=== PATIENT | male | born 1970 | race Two or more races ===

== ENCOUNTER 2024-04-17 09:38 | Emergency (ER) | payer MEDICAID, OTHER ==
[~2024-04-17] VITALS: Ht 188 cm; Wt 91.0 kg
[2024-04-17 10:57] VITALS: BP 157/87; PULSE 111; RESP 18; TEMP 97.9; O2SAT 98
--- NOTE | 2024-04-17 12:33 | ED.PDOC ---
History of Present Illness HPI Comments Patient is here for Dialysis site dressing change. Has Dialyisis on Thursday. No other complaints Chief Complaint: Wound Check Time Seen by MD: 10:45 Primary Care Provider: ? Reviewed Notes: Nurses Notes, Medications, Allergies Allergies: Coded Allergies: Erythromycin (Verified Allergy, Unknown, 04/17/24) Penicillins (Verified Allergy, Unknown, 04/17/24) Information Source: Patient Mode of Arrival: Wheelchair Past Medical History PAST MEDICAL HISTORY: DM, ESRD, HTN Surgical History (Other): royce cath Renal biopsy Social History Alcohol: Denies ETOH Use Drugs: Marijuana Lives In: Home All Other Systems: Reviewed and Negative Physical Exam General Appearance: No Apparent Distress HEENT: Normal ENT Inspection, PERRL/EOMI, TMs Normal Neck: Non-Tender, Normal Inspection Respiratory: Lungs Clear, No Respiratory Distress, Normal Breath Sounds, Other (Patient with Royce cath left upper chest wall, dressing not clean.) Cardiovascular: Regular Rate/Rhythm Breast Exam: Deferred Gastrointestinal: Non Tender, Normal Bowel Sounds, RUQ Genitalia: Deferred Pelvic: Deferred Rectal: Deferred Extremities: Decreased range of motion, Normal range of motion Neurologic: Alert, Normal Affect, Normal Mood Cerebellar Function: NOT DONE Reflexes: NOT DONE Skin: Dry, Warm Lymphatic: NOT DONE Was a procedure done? Was a procedure done?: No Differential Dx Considerations may include: bacteremia X-Ray, Labs, Meds, VS Vital Signs Date Time Temp Pulse Resp B/P (MAP) Pulse Ox O2 Delivery O2 Flow Rate FiO2 04/17/24 10:57 111 18 98 Room Air 04/17/24 10:57 97.9 111 18 157/87 (110) 98 97.9 04/17/24 09:45 97.9 111 18 157/87 (110) 98 X-Ray, Labs, Meds, VS Comment Patient seen and examied by me. Here only for central line dressing change, no other complaints. Has Dialysis on Thursday. Dressing was achnged by RN. Patient left after without paperwork. Time of 1ST Reevaluation: 11:30 Reevaluation 1ST: Improved Patient Education/Counseling: Other (patient left) Family Education/Counseling: No Family Present Departure 1 Departure Time of Disposition: 12:24 Impression: Primary Impression: Encounter for central line care Disposition: 01 HOME / SELF CARE / HOMELESS Condition: Good Critical Care Note Critical Care Time?: No Stability Stability form required: JANETH Stern [facility] Apr 17, 2024 12:33
== END 2024-04-17 12:34 | disposition home or self-care (01) ==
LOC: ER 09:38 → EDBD 09:38 → ER 12:24
DX: Z45.2 Encounter for adjustment and management of vascular access device (principal); E11.22 Type 2 diabetes mellitus with diabetic chronic kidney disease; I12.0 Hypertensive chronic kidney disease with stage 5 chronic kidney disease or end stage renal disease; N18.6 End stage renal disease; Z88.0 Allergy status to penicillin; Z88.1 Allergy status to other antibiotic agents; Z99.2 Dependence on renal dialysis

== ENCOUNTER 2024-05-11 19:55 | Emergency (ER) | payer MEDICAID ==
[~2024-05-11] VITALS: Ht 165.1 cm; Wt 65.0 kg
[2024-05-11 19:55] VITALS: BP 132/80; PULSE 90; RESP 14; O2SAT 99
== END 2024-05-11 23:20 | disposition left against medical advice (07) ==
LOC: ER 19:55 → EDBD 19:55 → ER 23:20
DX: H92.03 Otalgia, bilateral (principal); Z53.21 Procedure and treatment not carried out due to patient leaving prior to being seen by health care provider

== ENCOUNTER 2024-06-07 09:44 | Inpatient (IN) | payer MEDICAID ==
[~2024-06-07] VITALS: Ht 177.8 cm; Wt 77.0 kg
--- NOTE | 2024-06-07 10:07 | ED.PDOC ---
HPI Comments 53 year old male SHALONDA presents to the ED with chief complaint of HTN. EMS reports patient was undergoing dialysis yesterday when he was stopped early due to his blood pressure being too high. EMS relays that the patient called 911 today due to feeling SOB with associated chest pain, headache, and dizziness. Patient states he did not take his Amlodipine and Metoprolol this morning. EMS notes patient's BP was 213 systolically. Patient receives dialysis M/W/F. Patient denies any N/V, weakness, numbness, or abdominal pain. Chief Complaint: High Blood Pressure Time Seen by MD: 10:02 Primary Care Provider: ? Reviewed Notes: Nurses Notes, Community Integration Specialist Notes, Medications, Allergies Allergies: Coded Allergies: Erythromycin (Verified Allergy, Unknown, 04/17/24) Penicillins (Verified Allergy, Unknown, 04/17/24) Information Source: Patient, Emergency Med Personnel Mode of Arrival: EMS Severity: Moderate Timing: Days Duration: Since onset Prehospital treatment: None Location: Chest (L) Radiation: No Radiation Quality: Aching Onset: At Rest Cardiac Risk Factors: HTN, Diabetes PE Risk Factors: None History of: None Associated Signs and Symptoms: SOB Past Medical History PAST MEDICAL HISTORY: DM, ESRD, HTN Surgical History: Denies all surgeries Family History Family History: Reviewed,noncontributory to illness Social History Smoker: Non-Smoker Alcohol: Denies ETOH Use Drugs: Marijuana Lives In: Home Constitutional: denies: chills, diaphoresis, fatigue, fever, malaise, sweats, weakness, others EENTM: denies: blurred vision, double vision, ear bleeding, ear discharge, ear drainage, ear pain, ear ringing, eye pain, eye redness, hearing loss, mouth pain, mouth swelling, nasal discharge, nose bleeding, nose congestion, nose pain, photophobia, tearing, throat pain, throat swelling, voice changes, others Respiratory: reports: shortness of breath; denies: cough, hemoptysis, orthopnea, SOB at rest, SOB with excertion, stridor, wheezing, others Cardiovascular: reports: chest pain; denies: dizzy spells, diaphoresis, Dyspnea on exertion, edema, irregular heart beat, left arm pain, lightheadedness, palpitations, PND, syncope, others Gastrointestinal: denies: abdomen distended, abdominal pain, blood streaked bowels, constipated, diarrhea, dysphagia, difficulty swallowing, hematemesis, melena, nausea, poor appetite, poor fluid intake, rectal bleeding, rectal pain, vomiting, others Genitourinary: denies: burning, dysuria, flank pain, frequency, hematuria, incontinence, penile discharge, penile sore, pain, testicle pain, testicle swelling, urgency, others Neurological: reports: dizziness, headache; denies: fainting, left sided numbness, left sided weakness, numbness, paresthesia, pre-existing deficit, right sided numbness, right sided weakness, seizure, speech problems, tingling, tremors, weakness, others Musculoskeletal: denies: back pain, gout, joint pain, joint swelling, muscle pain, muscle stiffness, neck pain, others Integumetry: denies: bruises, change in color, change in hair/nails, dryness, laceration, lesions, lumps, rash, wounds, others Allergic/Immunocompromised: denies: Difficulty Healing, Frequent Infections, Hives, Itching, others Hematologic/Lymphatic: denies: anemia, blood clots, easy bleeding, easy b ruising, swollen glands, others Endocrine: denies: excessive hunger, excessive sweating, excessive thirst, excessive urination, flushing, intolerance to cold, intolerance to heat, unexplained weight gain, unexplained weight loss, others Psychiatric: denies: anxiety, bipolar disorder, depression, hopeless, panic disorder, schizophrenia, sleepless, suicidal, others All Other Systems: Reviewed and Negative Physical Exam General Appearance: Moderate Distress, Normal HEENT: Normal ENT Inspection, PERRL/EOMI Neck: Full Range of Motion, Non-Tender, Normal, Normal Inspection Respiratory: Chest Non-Tender, Lungs Clear, No Accessory Muscle Use, No Respiratory Distress, Normal Breath Sounds Cardiovascular: No Edema, No JVD, No Murmur, No Gallop, Normal Peripheral Pulses, Regular Rate/Rhythm Breast Exam: Deferred Gastrointestinal: No Organomegaly, Non Tender, No Pulsatile Mass, Normal Bowel Sounds, Soft Genitalia: Deferred Pelvic: Deferred Rectal: Deferred Extremities: No calf tenderness, Normal capillary refill, Normal inspection, Normal range of motion, Non-tender, No pedal edema Musculoskeletal : Apperance: Normal Neurologic: Alert, hammerer helper II-XII nml as Tested, No Motor Deficits, Normal Affect, Normal Mood, No Sensory Deficits Cerebellar Function: NOT DONE Reflexes: NOT DONE Skin: Dry, Normal Color, Warm Peripheral Pulses: 3+ Radial (R), 3+ Radial (L) Lymphatic: No Adenopathy Was a procedure done? Was a procedure done?: No CP Differential Dx Differential Diagnosis: A-fib, A-Flutter, Angina, Anxiety / Panic Attack, Atrial Dysrhythmia, Electrolyte Disorder X-Ray, Labs, Meds, VS Vital Signs Date Time Temp Pulse Resp B/P (MAP) Pulse Ox O2 Delivery O2 Flow Rate FiO2 06/07/24 12:08 98.9 103 17 172/94 (120) 95 98.9 06/07/24 12:08 103 17 95 Room Air* 0 21 06/07/24 10:23 166/112 06/07/24 10:01 98.9 106 20 213/139 (163) 97 98.9 06/07/24 09:53 100 Lab Test 06/07/24 12:12 06/07/24 10:22 Range/Units Influenza Type A Antigen Negative Negative Influenza Type B Antigen Negative Negative White Blood Count 8.0 4.4-10.8 10^3/uL Red Blood Count 3.74 L 4.5-5.90 10^6/uL Hemoglobin 11.8 L 13.5-17.5 g/dL Hematocrit 33.9 L 41.0-53.0 % Mean Corpuscular Volume 90.7 80.0-100.0 fL Mean Corpuscular Hemoglobin 31.5 28.0-32.0 pg Mean Corpuscular Hemoglobin Concent 34.7 32.0-36.0 g/dL Red Cell Distribution Width 15.0 H 11.8-14.3 % Platelet Count 314 140-450 10^3/uL Mean Platelet Volume 6.8 L 6.9-10.8 fL Neutrophils (%) (Auto) 67.3 37.0-80.0 % Lymphocytes (%) (Auto) 21.6 10.0-50.0 % Monocytes (%) (Auto) 9.1 0.0-12.0 % Eosinophils (%) (Auto) 1.2 0.0-7.0 % Basophils (%) (Auto) 0.8 0.0-2.0 % Neutrophils # (Auto) 5.4 1.6-8.6 10 ^3/uL Lymphocytes # (Auto) 1.7 0.4-5.4 10 ^3/uL Monocytes # (Auto) 0.7 0-1.3 10 ^3/uL Eosinophils # (Auto) 0.1 0-0.8 10 ^3/uL Basophils # (Auto) 0.1 0-0.2 10 ^3/uL Nucleated Red Blood Cells 0.1 % Sodium Level 141 136-145 mmol/L Potassium Level 3.8 3.5-5.1 mmol/L Chloride Level 108 H 98-107 mmol/L Carbon Dioxide Level 23 20-31 mmol/L Anion Gap 10 5-15 Blood Urea Nitrogen 27 H 9-23 mg/dL Creatinine 3.31 H 0.700-1.30 mg/dL Glomerular Filtration Rate Calc 21 >90 mL/min BUN/Creatinine Ratio 8.2 L 10.0-20.0 Serum Glucose 267 H 74-106 mg/dL Calcium Level 9.5 8.7-10.4 mg/dL Troponin I High Sensitivity 21 </=54 ng/L Current Medications Medications (Trade) Dose Ordered Sig/Misty Route Start Time Stop Time Status Last Admin Amlodipine Besylate (Norvasc Tablet) 10 mg ONCE ONCE PO 06/07/24 10:00 06/07/24 10:01 DC 06/07/24 10:23 Lorazepam (Ativan Inj) 1 mg ONCE ONCE IV 06/07/24 12:00 06/07/24 12:01 DC 06/07/24 11:54 Patient alert. Blood pressure elevated. Was given amlodipine. Answering questions. He did not get his complete dialysis yesterday. Blood pressure continues to be elevated. Reviewed his history. Nephrology consultation. Explained to the patient. Continue cardiac monitoring. Time of 1ST Reevaluation: 11:02 Reevaluation 1ST: Unchanged Patient Education/Counseling: Diagnosis, Treatment Family Education/Counseling: No Family Present Additional Information Previous visit documents reviewed: 05/11/24 for eye pain and vision loss The following tests were ordered, and results were reviewed by me: EKG Additional Information was gathered from interviewing the following independent historians: EMS I reviewed and agreed with the following test results read by other providers: I discussed treatment and results with medical personnel and: Patient Departure 1 Departure Time of Disposition: 13:22 Impression: Primary Impression: Hypertensive emergency Additional Impression: Chronic kidney disease on chronic dialysis Disposition: ADMITTED INPATIENT Admit to: Med Surg Condition: Guarded Critical Care Note Critical Care Time?: Yes (45 min-critical care time only) Critical care comment: Hypertensive management Stability Stability form required: No Heart Score Heart Score: Heart Score Response (Comments) Value History Moderate Suspicious 1 EKG Normal 0 Age 45-64 1 Risk Factors >3 or Hx ASHD 2 Troponin Normal limit 0 Total 4 I personally scribed for CHIKIS OLIVAREZ MD ([email or web address]) on 06/07/24 at 10:07. Electronically submitted by Blu Mckeon ([email or web address]). CHIKIS OLIVAREZ MD Jun 07, 2024 10:07
[2024-06-07] MEDS: amLODIPine BESYLATE 5 MG TAB PO ONE (10:23)
[2024-06-07 10:36] LABS: Potassium 3.8 mmol/L (3.5-5.1); Sodium 141 mmol/L (136-145)
[2024-06-07 10:37] LABS: Anion Gap 10 (5-15); Carbon Dioxide 23 mmol/L (20-31)
--- NOTE | 2024-06-07 10:37 | ECG ---
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
[2024-06-07 10:38] LABS: Basophils # (auto) 0.1 10 ^3/uL (0-0.2); Basophils % (auto) 0.8 % (0.0-2.0); Calcium 9.5 mg/dL (8.7-10.4); Eosinophils # (auto) 0.1 10 ^3/uL (0-0.8); Eosinophils % (auto) 1.2 % (0.0-7.0); Hematocrit 33.9 % (41.0-53.0); Hemoglobin 11.8 g/dL (13.5-17.5); Lymphocytes # (auto) 1.7 10 ^3/uL (0.4-5.4); Lymphocytes % (auto) 21.6 % (10.0-50.0); Mean Corpuscular Hemoglobin 31.5 pg (28.0-32.0); Mean Corpuscular Hgb Conc. 34.7 g/dL (32.0-36.0); Mean Corpuscular Volume 90.7 fL (80.0-100.0); Monocytes # (auto) 0.7 10 ^3/uL (0-1.3); Monocytes % (auto) 9.1 % (0.0-12.0); Neutrophils # (auto) 5.4 10 ^3/uL (1.6-8.6); Neutrophils % (auto) 67.3 % (37.0-80.0); Nucleated Red Blood Cells % 0.1 %; Platelet Count (auto) 314 10^3/uL (140-450); Red Blood Cells 3.74 10^6/uL (4.5-5.90)
[2024-06-07 10:43] LABS: BUN/Creatinine Ratio 8.2 (10.0-20.0)
[2024-06-07 10:49] LABS: Blood Urea Nitrogen 27 mg/dL (9-23); Chloride 108 mmol/L (98-107); Glucose 267 mg/dL (74-106)
[2024-06-07] MEDS: LORazepam 2MG/ML-1ML VIAL ONE (10:54)
--- NOTE | 2024-06-07 11:53 | DVH ---
CHEST RADIOGRAPH Indication: sob Technique: Single frontal view of the chest was obtained COMPARISON: None FINDINGS: Lines and Tubes: Tunneled right central venous catheter in satisfactory position. Lungs: Congestion Pleura: No effusion. No pneumothorax. Cardiomediastinal contours: Unremarkable Bones: Unremarkable IMPRESSION: Pulmonary vascular congestion. Low lung volumes.
[2024-06-07] MEDS: LORazepam 2MG/ML-1ML VIAL IV ONE (11:54)
[2024-06-07 12:08] VITALS: PULSE 103; RESP 17; O2SAT 95
[2024-06-07 12:47] LABS: Rapid Influenza A Negative (Negative); Rapid Influenza B Negative (Negative)
[2024-06-07] MEDS ORDERED: DEXTROSE (50%) 50ML SYRG IV PRN (14:30)
[2024-06-07] MEDS ORDERED: ONDANSETRON HCL 4 MG/2 ML VIAL IV PRN (14:30)
[2024-06-07] MEDS ORDERED: ACETAMINOPHEN 325 MG TAB PO PRN (14:30)
[2024-06-07] MEDS ORDERED: DOCUSATE SOD 100 MG CAP PO PRN (14:30)
[2024-06-07] MEDS ORDERED: LEVE100020 PO (16:24)
[2024-06-07] MEDS ORDERED: QUET50TA27 PO (16:24)
[2024-06-07] MEDS ORDERED: METO-289 PO (16:24)
[2024-06-07] MEDS ORDERED: BUME1TAB3 PO (16:24)
[2024-06-07] MEDS ORDERED: APIX5TAB PO (16:24)
[2024-06-07] MEDS ORDERED: OLOP0.1D14 LEFTEYE (16:24)
[2024-06-07] MEDS ORDERED: ATOR-507 PO (16:24)
[2024-06-07] MEDS ORDERED: INSU100I53 (16:24)
[2024-06-07] MEDS ORDERED: AMLO1TAB22 PO (16:24)
[2024-06-07] MEDS ORDERED: LEVE750T3 PO (16:24)
[2024-06-07] MEDS ORDERED: ATOR-507 (16:24)
--- NOTE | 2024-06-07 16:25 | DVHCONRES ---
Date Seen: Jun 07, 2024 Resident Creating Document: FELICE STINSON RESIDENT Referring Physician Dr. Gamble Reason for Consultation ESRD on HD History of Present Illness Mr. Goins, a 49 year old gentleman with past medical history significant for hypertension, atrial fibrillation on Eliquis, dyslipidemia, seizure disorder, glaucoma, schizophrenia, ESRD on hemodialysis with Dr. Sophia ulloa at [facility] comes to the ED with elevated blood pressure and headache noted at home by home care nursing facility. Patient was sent to the ED for further evaluation via EMS. Since then patient found to have hypertensive urgency with maximum blood pressure noted to 213/139 and headache. Since then patient got antihypertensives including home amlodipine metoprolol tartrate and hydralazine p.r.n. with at blood pressure is improving and headache significantly less bothering to the patient. Extremely poor historian, lives with sister at home. Usually goes [facility] for seeking healthcare, seems like the 1st ever visit to the hospital. Last hemodialysis yesterday, as per patient patient is not miss any medication although information reliability questionable. Past Medical History hypertension, atrial fibrillation on Eliquis, dyslipidemia, seizure disorder, g laucoma, schizophrenia, ESRD on hemodialysis with Dr. Sophia ulloa at [facility] Past Surgical History Reports none Family History Likely noncontributory Social History Lives at home, with sister. Denies smoking, alcohol, active substance abuse. Allergies: Coded Allergies: Erythromycin (Verified Allergy, Unknown, 04/17/24) Penicillins (Verified Allergy, Unknown, 04/17/24) Home Meds Reported Medications Atorvastatin Calcium (Lipitor) 40 Mg Tab, 40 MG PO DAILY 06/07/24 Atorvastatin Calcium (Lipitor) 40 Mg Tab 06/07/24 Quetiapine Fumerate (QUETIAPINE FUMARATE) 50 Mg Tab, 1 TAB PO 06/07/24 Bumetanide (Bumetanide) 1 Mg Tab, 1 TAB PO DAILY 06/07/24 Amlodipine Besylate (Amlodipine Besylate) 5 Mg Tab, 1 TAB PO DAILY 06/07/24 Levetiracetam (Levetiracetam) 1,000 Mg Tab, 1 TAB PO BID 06/07/24 Insulin Lispro (Insulin Lispro Thai Kwi) 100 Unit/Ml Inj 06/07/24 Apixaban Base (ELIQUIS) 5 Mg Tab, PO 06/07/24 Olopatadine HCl (Olopatadine Hydrochloride) 0.1 % Melchor, 1 DROP LEFTEYE BID 06/07/24 Levetiracetam (Levetiracetam) 750 Mg Tab, PO 06/07/24 Metoprolol Succinate (Metoprolol Succinate Er) 50 Mg Tab, 1 TAB PO DAILY 06/07/24 Current Medications Current Medications Medications (Trade) Dose Ordered Sig/Misty Route PRN Reason Start Time Stop Time Status Last Admin Sevelamer HCl (Renagel) 800 mg TIDWM PO 06/07/24 18:00 Multivit/Ca Carb/ B Cmplx/FA/Prenat (Nephro-Ruthann Tablet) 1 tab DAILY PO 06/08/24 10:00 Atorvastatin Calcium (Lipitor) 10 mg HS PO 06/07/24 22:00 Amlodipine Besylate (Norvasc Tablet) 5 mg DAILY PO 06/08/24 10:00 Hydralazine HCl (Apresoline Injection) 10 mg Q6HP PRN IV SBP>150 06/07/24 14:30 Levetiracetam 100 ml @ 400 mls/hr BID IV 06/07/24 22:00 Metoprolol Tartrate (Lopressor Tablet) 50 mg BID PO 06/07/24 22:00 Apixaban (Eliquis) 5 mg BID PO 06/07/24 22:00 Diagnostic Test (Pha) (Accu-Chek Comfort Curve T) 1 strip ACHS 06/07/24 17:00 Insulin Human Regular (InsuLIN R) HS SC 06/07/24 22:00 Insulin Human Regular (InsuLIN R) AC SC 06/07/24 17:00 Dextrose 50 ml UD PRN IV Blood Sugar LESS THAN 60 06/07/24 14:30 Sodium Chloride (Saline Lock Ns) 10 ml Q8HR IV 06/07/24 22:00 Acetaminophen/ Hydrocodone Bitart (Reubens 5/325MG Tab) 1 tab Q4HP PRN PO MODERATE PAIN (4-6 PAIN SCALE) 06/07/24 14:30 Ondansetron HCl (Zofran) 4 mg Q4HP PRN IV NAUSEA / VOMITING 06/07/24 14:30 Docusate Sodium (Colace Capsule) 100 mg BIDPRN PRN PO FOR CONSTIPATION 06/07/24 14:30 Acetaminophen (Tylenol Tablet) 650 mg Q6HP PRN PO PAIN SCALE 1-3 OR TEMP>100.4 06/07/24 14:30 Review of Systems HEENT:Normal, CVS:Normal, RESPIRATORY:Normal, GI:Normal, :Normal, MSK:Normal, NEURO:Normal, no focal neurological deficit. Headache tension type bilateral bandlike. Vital Signs Vital Signs Date Time Temp Pulse Resp B/P (MAP) Pulse Ox O2 Delivery O2 Flow Rate FiO2 06/07/24 12:14 105 06/07/24 12:08 98.9 17 172/94 (120) 95 98.9 06/07/24 12:08 Room Air* 0 21 Physical Exam GENERAL:Normal, HEENT:Normal, NECK:Normal, LUNGS:Normal, patient do have a tunneled catheter, CVS:Normal, ABDOMEN:Normal, MSK:Abnormal, SKIN:Normal, NEURO: Normal, :Normal Labs/Diagnostic Data Labs Test 06/07/24 12:12 06/07/24 10:22 Range/Units Influenza Type A Antigen Negative Negative Influenza Type B Antigen Negative Negative White Blood Count 8.0 4.4-10.8 10^3/uL Red Blood Count 3.74 L 4.5-5.90 10^6/uL Hemoglobin 11.8 L 13.5-17.5 g/dL Hematocrit 33.9 L 41.0-53.0 % Mean Corpuscular Volume 90.7 80.0-100.0 fL Mean Corpuscular Hemoglobin 31.5 28.0-32.0 pg Mean Corpuscular Hemoglobin Concent 34.7 32.0-36.0 g/dL Red Cell Distribution Width 15.0 H 11.8-14.3 % Platelet Count 314 140-450 10^3/uL Mean Platelet Volume 6.8 L 6.9-10.8 fL Neutrophils (%) (Auto) 67.3 37.0-80.0 % Lymphocytes (%) (Auto) 21.6 10.0-50.0 % Monocytes (%) (Auto) 9.1 0.0-12.0 % Eosinophils (%) (Auto) 1.2 0.0-7.0 % Basophils (%) (Auto) 0.8 0.0-2.0 % Neutrophils # (Auto) 5.4 1.6-8.6 10 ^3/uL Lymphocytes # (Auto) 1.7 0.4-5.4 10 ^3/uL Monocytes # (Auto) 0.7 0-1.3 10 ^3/uL Eosinophils # (Auto) 0.1 0-0.8 10 ^3/uL Basophils # (Auto) 0.1 0-0.2 10 ^3/uL Nucleated Red Blood Cells 0.1 % Sodium Level 141 136-145 mmol/L Potassium Level 3.8 3.5-5.1 mmol/L Chloride Level 108 H 98-107 mmol/L Carbon Dioxide Level 23 20-31 mmol/L Anion Gap 10 5-15 Blood Urea Nitrogen 27 H 9-23 mg/dL Creatinine 3.31 H 0.700-1.30 mg/dL Glomerular Filtration Rate Calc 21 >90 mL/min BUN/Creatinine Ratio 8.2 L 10.0-20.0 Serum Glucose 267 H 74-106 mg/dL Calcium Level 9.5 8.7-10.4 mg/dL Troponin I High Sensitivity 21 </=54 ng/L Assessment # Hypertensive urgency # Uncontrolled HTN # ESRD on HD MWF via tunneled catheter. # Tension headache. # Afib RVR # Seizure disorder # ?Schizophrenia, stable behavior. Findings: #GFR: 21 #Creatinine: 3.21, last dialysis yesterday. #BUN: 27 #I&O: not well documented, aneuric at baseline. #Free water deficit in hypernatremia #HD tunneled catheter (right chest) #Fluid status: euvolemic Plan/Recommendation #Control blood pressure with target 130/80 or below over 24-48 hours as per AHA/ACC guidelines. #Strict I&O and check Daily weight, renal diet and continue sevelamer 800 mg tid. #Daily BMP, Serum Phosphorus, PTH Labs and Correct electrolytes #Hemodialysis will be arranged in hospital if patient remains admitted, S/p HD Epogen #Following Dr[facility]: [facility] #Rest of the management as per primary team. Thank you for the opportunity to follow up on your patient. In case of any question feel free to reach out to the Nephrology team. Discussed with Nephrology attending Dr. Fernandes. Addendum Patient seen and examined, plan discussed with resident. Agree with above, we will follow closely HD 06/08 Plan discussed with: Patient, Other (primary team, RN) FELICE STINSON Jun 07, 2024 16:25 SHAYY FERNANDES MD Jun 08, 2024 15:15
--- NOTE | 2024-06-07 16:36 | DVHHP2 ---
History of Present Illness Reason for Visit: Hypertensive urgency History of Present Illness The patient is a 53-year-old male with past medical history of ESRD on hemodialysis M--, hypertension, and diabetes mellitus presented to [facility] ED for evaluation of elevated blood pressure. As reported by EMS, patient called 911 today due to feeling shortness of breaths, associated chest pain, headache, and dizziness. When EMS arrived on the scene, patient's systolic blood pressure was in the 200s and was stabilized with antihypertensive medication EN route to our facility ED. patient was seen and evaluated in the ED, laboratory data shows WBC 8.0, platelets 314, sodium 141, potassium 3.8, BUN 27, creatinine 3.31, GFR 21, blood glucose 267, troponin 21, blood pressure 213/139 trending down to 144/84, heart rate 102, temperature 98.9 F, O2 saturation 95% on oxygen. Chest x-ray revealing pulmonary vascular congestion, low lung volumes. Patient was given IV hydralazine 10 mg x1, amlodipine 10 mg p.o. x1, please see medication orders section in the computer. On my assessment, patient denied chest pain, no headache, no dizziness, no diaphoresis, currently on oxygen, no diarrhea, no nausea, no vomiting, no fever, no chills. Patient was admitted for further evaluation and medical management. Past Medical History DM, ESRD, HTN Past Surgical History Denies all surgeries Family History Reviewed, noncontributory to the management of this case. Past Social History The patient lives at home, denies smoking, alcohol or illicit drugs abuse. Review of Systems Constitutional: Yes: Weakness; No: Fever, Chills, Sweats, Malaise, Other Eyes: No: Pain, Vision change, Conjunctivae inflammation, Eyelid inflammation, Other, Redness ENT: No: Ear pain, Ear discharge, Nose pain, Nose discharge, Nose congestion, Mouth pain, Mouth swelling, Throat pain, Throat swelling, Other Respiratory: Shortness of breath; No: Cough, Dry, SOB with excertion, Wheezing, Hemoptysis, Pleuritic Pain, Sputum, Wheezing, Other Cardiovascular: Chest Pain; No: Palpitations, Orthopnea, Paroxysmal Noc. Dyspnea, Edema, Lt Headedness, Other Gastrointestinal: No: Nausea, Vomiting, Abdominal Pain, Diarrhea, Constipation, Melena, Hematochezia, Other Genitourinary: No Dysuria, No Frequency, No Incontinence, No Hematuria, No Retention, No Other Musculoskeletal: No: other, neck pain, shoulder pain, arm pain, back pain, hand pain, leg pain, foot pain Skin: No: Rash, Lesions, Jaundice, Bruising, Other Neurological: Other (Headache, dizziness.); No: Weakness, Numbness, Incoordination, Change in speech, Confusion, Seizures Allergies: Coded Allergies: Erythromycin (Verified Allergy, Unknown, 04/17/24) Penicillins (Verified Allergy, Unknown, 04/17/24) Medications Current Medications Medications Dose Ordered Sig/Misty Route Start Time Stop Time Status Last Admin Dose Admin Sevelamer HCl 800 mg TIDWM PO 06/07/24 18:00 Multivit/Ca Carb/ B Cmplx/FA/Prenat 1 tab DAILY PO 06/08/24 10:00 Atorvastatin Calcium 10 mg HS PO 06/07/24 22:00 Amlodipine Besylate 5 mg DAILY PO 06/08/24 10:00 Hydralazine HCl 10 mg Q6HP PRN IV 06/07/24 14:30 Levetiracetam 100 ml @ 400 mls/hr BID IV 06/07/24 22:00 Metoprolol Tartrate 50 mg BID PO 06/07/24 22:00 Apixaban 5 mg BID PO 06/07/24 22:00 Diagnostic Test (Pha) 1 strip ACHS 06/07/24 17:00 Insulin Human Regular HS SC 06/07/24 22:00 Insulin Human Regular AC SC 06/07/24 17:00 Dextrose 50 ml UD PRN IV 06/07/24 14:30 Sodium Chloride 10 ml Q8HR IV 06/07/24 22:00 Acetaminophen/ Hydrocodone Bitart 1 tab Q4HP PRN PO 06/07/24 14:30 Ondansetron HCl 4 mg Q4HP PRN IV 06/07/24 14:30 Docusate Sodium 100 mg BIDPRN PRN PO 06/07/24 14:30 Acetaminophen 650 mg Q6HP PRN PO 06/07/24 14:30 Exam Vital Signs Vital Signs Date Time Temp Pulse Resp B/P (MAP) Pulse Ox O2 Delivery O2 Flow Rate FiO2 06/07/24 12:14 105 06/07/24 12:08 98.9 17 172/94 (120) 95 98.9 06/07/24 12:08 Room Air* 0 21 General Appearance: Alert, Oriented X3, Cooperative, No acute distress HEENT: Atraumatic, PERRLA, EOMI, Mucous membr. moist/pink Respiratory: Normal air movement, Other (Congestion) Cardiovascular: Regular rate, Normal S1, Normal S2, No murmurs Abdominal: Normal bowel sounds, Soft, No tenderness, No hepatospenomegaly, No masses Extremities: No clubbing, No cyanosis, No edema, Normal pulses, No tende rness/swelling Skin: No rashes, No breakdown, No significant lesion Neuro: Normal speech, Normal tone, Sensation intact, Cranial nerves 3-12 NL, Reflexes 2+, Other (Generalized weakness) Psych/Mental Status: Mental status NL, Mood NL Labs/Xrays Labs Test 06/07/24 12:12 06/07/24 10:22 Range/Units Influenza Type A Antigen Negative Negative Influenza Type B Antigen Negative Negative White Blood Count 8.0 4.4-10.8 10^3/uL Red Blood Count 3.74 L 4.5-5.90 10^6/uL Hemoglobin 11.8 L 13.5-17.5 g/dL Hematocrit 33.9 L 41.0-53.0 % Mean Corpuscular Volume 90.7 80.0-100.0 fL Mean Corpuscular Hemoglobin 31.5 28.0-32.0 pg Mean Corpuscular Hemoglobin Concent 34.7 32.0-36.0 g/dL Red Cell Distribution Width 15.0 H 11.8-14.3 % Platelet Count 314 140-450 10^3/uL Mean Platelet Volume 6.8 L 6.9-10.8 fL Neutrophils (%) (Auto) 67.3 37.0-80.0 % Lymphocytes (%) (Auto) 21.6 10.0-50.0 % Monocytes (%) (Auto) 9.1 0.0-12.0 % Eosinophils (%) (Auto) 1.2 0.0-7.0 % Basophils (%) (Auto) 0.8 0.0-2.0 % Neutrophils # (Auto) 5.4 1.6-8.6 10 ^3/uL Lymphocytes # (Auto) 1.7 0.4-5.4 10 ^3/uL Monocytes # (Auto) 0.7 0-1.3 10 ^3/uL Eosinophils # (Auto) 0.1 0-0.8 10 ^3/uL Basophils # (Auto) 0.1 0-0.2 10 ^3/uL Nucleated Red Blood Cells 0.1 % Sodium Level 141 136-145 mmol/L Potassium Level 3.8 3.5-5.1 mmol/L Chloride Level 108 H 98-107 mmol/L Carbon Dioxide Level 23 20-31 mmol/L Anion Gap 10 5-15 Blood Urea Nitrogen 27 H 9-23 mg/dL Creatinine 3.31 H 0.700-1.30 mg/dL Glomerular Filtration Rate Calc 21 >90 mL/min BUN/Creatinine Ratio 8.2 L 10.0-20.0 Serum Glucose 267 H 74-106 mg/dL Calcium Level 9.5 8.7-10.4 mg/dL Troponin I High Sensitivity 21 </=54 ng/L PATIENT: ASHELY ZELAYA ACCT: [id number] UNIT: [id number] : 1970 LOC: ER ROOM / BED: / AGE / SEX: 53 / M ADM STATUS: REG ER SERVICE 1014 ORDERING PHYSICIAN: CHIKIS OLIVAREZ MD PROCEDURE(s): CXRP - CHEST PORTABLE REASON: sob ORDER NUMBER(s): [id number], ACCESSION NUMBER(s): [id number] CHEST RADIOGRAPH Indication: sob Technique: Single frontal view of the chest was obtained COMPARISON: None FINDINGS: Lines and Tubes: Tunneled right central venous catheter in satisfactory position. Lungs: Congestion Pleura: No effusion. No pneumothorax. Cardiomediastinal contours: Unremarkable Bones: Unremarkable IMPRESSION: Pulmonary vascular congestion. Low lung volumes. Assessment/Plan Assessment/Plan Hypertensive emergency Generalized weakness Diabetes mellitus with hyperglycemia Chronic kidney disease on chronic dialysis Plan 1. Admit to telemetry unit 2. Breathing treatment 3. Pain control management 4. Management of fluids and electrolytes 5. Consultation for Nephrology 6. Diagnostic tests chest x-ray 7. DVT prophylaxis-on Eliquis 8. Repeat labs CBC, CMP in a.m. 9. Continue with current medical management 10. Treatment plan discussed with patient and RN. Patient verbalized understanding. Plan discussed with: Patient, Other (RN) My Orders Orders - OKPAN,JUSTIN O DNP Procedure Category Date Status Time Consistent DIET 06/07/24 Transmitted Carb(Ccho)Diabetes Dinner *Dr. [facility] CONS 06/07/24 Transmitted -[place] 14:23 Sevelamer (Renagel) PHA 06/07/24 In Process 18:00 B-Complex W/ C & PHA 06/08/24 In Process Folic Tablet 10:00 Atorvastatin (Lipitor) PHA 06/07/24 In Process 22:00 Amlodipine Tablet PHA 06/08/24 In Process (Norvasc Tablet) 10:00 Hydralazine Injection PHA 06/07/24 In Process (Apresoline Inject 14:30 Levetiracetam 1000 PHA 06/07/24 In Process Mg/100ml (Levetiracet 22:00 Metoprolol Tartrate PHA 06/07/24 In Process Tablet (Lopressor Ta 22:00 Apixaban (Eliquis) PHA 06/07/24 In Process 22:00 Glucose Blood PHA 06/07/24 In Process (Accu-Chek Comfort 17:00 Insulin R (Human) PHA 06/07/24 In Process (Insulin R) 22:00 Insulin R (Human) PHA 06/07/24 In Process (Insulin R) 17:00 Dextrose 50% Syringe PHA 06/07/24 In Process 14:30 Allergies YOLY 06/07/24 In Process 14:23 Code Status CODE 06/07/24 Transmitted 14:23 Renal DIET 06/07/24 Transmitted Standard(2gna,3gk,Lopho) Dinner Sodium Chloride Lock PHA 06/07/24 In Process (Saline Lock Ns) 22:00 Oxygen Per Hour RT 06/07/24 Transmitted 14:23 Hydrocodone-Acet PHA 06/07/24 In Process 5/325mg Tab ([place] 14:30 Ondansetron Hcl PHA 06/07/24 In Process (Zofran) 14:30 Docusate Sodium PHA 06/07/24 In Process Capsule (Colace 14:30 Complete Blood Count LAB 06/08/24 Verified 04:00 Comprehensive LAB 06/08/24 Verified Metabolic Panel 04:00 Condition: Serious YOLY 06/07/24 In Process 14:23 Acetaminophen Tablet PHA 06/07/24 In Process (Tylenol Tablet) 14:30 Bedrest With Bathroom YOLY 06/07/24 In Process Privileg 14:23 Sequential YOLY 06/07/24 In Process Compression Device Problem List: (1) Hypertensive emergency (2) Generalized weakness (3) Diabetes mellitus with hyperglycemia (4) Chronic kidney disease on chronic dialysis Date of Service: Jun 07, 2024 Billing Provider: JUSTIN AL DNP Common Visit Codes: [id number] INP/OBS CARE (HIGH) JUSTIN AL DNP Jun 07, 2024 16:36
[2024-06-07] MEDS ORDERED: MORPHINE SULFATE INJ 2 MG/ml SYRG IV PRN (16:45)
[2024-06-07] MEDS ORDERED: NITROGLYCERIN 0.4 MG SL TAB SL PRN (16:45)
[2024-06-07] MEDS: HYDROcodone-ACET 5/325MG TAB PO PRN (16:54)
[2024-06-07] MEDS: ACCU-CHEK COMFORT CURVE STRIP VI SCH (18:38)
[2024-06-07] MEDS: InsuLIN REG 1unit/0.01ml Soln (100units/ml) SC SCH ×2 (18:39→22:18)
[2024-06-07] MEDS: SEVELAMER 800 MG TAB PO SCH (18:42)
[2024-06-07 21:12] VITALS: PULSE 95; RESP 14; O2SAT 98
[2024-06-07] MEDS: SODIUM CHLOR 0.9% PF (SALINE LOCK) 10ML VIAL/SYR IV SCH (22:10)
[2024-06-07] MEDS: ATORVASTATIN 20 MG TAB PO SCH (22:17)
[2024-06-07] MEDS: APIXABAN 5 MG TAB PO SCH (22:17)
[2024-06-07] MEDS: levETIRAcetam 1000 mg/100ml 100 ML IV SCH (22:19)
[2024-06-07] MEDS: METOPROLOL TARTRATE 50 MG TAB PO SCH (22:31)
[2024-06-08] VITALS (8 sets, daily range): BP systolic 125–157; BP diastolic 67–87; PULSE 80–90; RESP 18–19; TEMP 97.7–98.3; O2SAT 95–98
[2024-06-08] MEDS: hydrALAZINE HCL 20 MG/ML VL IV PRN (02:50)
[2024-06-08 06:40] LABS: Basophils # (auto) 0 10 ^3/uL (0-0.2); Basophils % (auto) 0.6 % (0.0-2.0); Eosinophils # (auto) 0.2 10 ^3/uL (0-0.8); Eosinophils % (auto) 2.2 % (0.0-7.0); Hematocrit 30.6 % (41.0-53.0); Hemoglobin 10.8 g/dL (13.5-17.5); Lymphocytes # (auto) 2.2 10 ^3/uL (0.4-5.4); Lymphocytes % (auto) 30.2 % (10.0-50.0); Mean Corpuscular Hemoglobin 31.4 pg (28.0-32.0); Mean Corpuscular Hgb Conc. 35.3 g/dL (32.0-36.0); Monocytes # (auto) 0.7 10 ^3/uL (0-1.3); Monocytes % (auto) 10.2 % (0.0-12.0); Neutrophils # (auto) 4.1 10 ^3/uL (1.6-8.6); Neutrophils % (auto) 56.8 % (37.0-80.0); Nucleated Red Blood Cells % 0.1 %; Platelet Count (auto) 286 10^3/uL (140-450); Red Blood Cells 3.44 10^6/uL (4.5-5.90); Red Cell Distribution Width 15.1 % (11.8-14.3); White Blood Cell 7.2 10^3/uL (4.4-10.8)
[2024-06-08] MEDS ORDERED: SODIUM CHL 0.9% 1000 ML BAG XX ONE (07:00)
[2024-06-08 07:02] LABS: Alanine Aminotransferase 24 U/L (7-40); Albumin 3.5 g/dL (3.2-4.8); Anion Gap 8 (5-15); Aspartate Aminotransferase 16 U/L (13-40); BUN/Creatinine Ratio 8.9 (10.0-20.0); Bilirubin, Total 0.3 mg/dL (0.2-1.0); Calcium 9.5 mg/dL (8.7-10.4); Carbon Dioxide 25 mmol/L (20-31); Sodium 141 mmol/L (136-145)
[2024-06-08 07:05] LABS: Alkaline Phosphatase 240 U/L (46-116); Blood Urea Nitrogen 31 mg/dL (9-23); Chloride 108 mmol/L (98-107); Glucose 187 mg/dL (74-106); Potassium 3.5 mmol/L (3.5-5.1)
[2024-06-08] MEDS: B-COMPLEX W/ C & FOLIC ACID(NEPHROVITE TAB) PO SCH (09:15)
[2024-06-08] MEDS: amLODIPine BESYLATE 5 MG TAB PO SCH (09:16)
[2024-06-08 09:30] LABS: Magnesium 1.7 mg/dL (1.6-2.6)
[2024-06-08 09:31] LABS: Phosphorus 4.2 mg/dL (2.4-5.1)
[2024-06-08] MEDS ORDERED: levETIRAcetam 500 MG TAB PO SCH (10:00)
--- NOTE | 2024-06-08 10:37 | DVH ---
EXAM: CT HEAD WITHOUT CONTRAST INDICATION: High blood pressure, persistent headache TECHNIQUE: CT of the head without intravenous contrast. Coronal and sagittal reformatted images are s ubmitted. Radiation Dose : 1. Head: CT Dose: CTDI volume is 65.79 mGy. Dose-length product is 1296.24 mGy*cm The dose indicators for CT are the volume Computed Tomography (CT) Dose Index (CTDIvol) and the Dose Length Product (DLP), and are measured in units of mGy and mGy-cm, respectively. These indicators are not patient dose, but values generated from the CT scanner acquisition factors. The report includes radiation exposure data for exposures received during this examination. All CT scans at this medical facility are performed using dose modulation techniques as appropriate to a performed exam including the following: Automated exposure control was utilized; adjustment of the MA and/or KV according to patient size; and use of iterative reconstruction technique. COMPARISON: None FINDINGS: There is no evidence of acute intracranial hemorrhage, extra-axial collection, mass effect, midline s hift, herniation or hydrocephalus. The ventricles, sulci and cisterns are age appropriate. The bruno-white differentiation is intact. The visualized paranasal sinuses and mastoid air cells are clear. No depressed calvarial fracture. Occipital soft tissue swelling. IMPRESSION: 1. No evidence of acute intracranial abnormality. 2. Occipital soft tissue swelling.
--- NOTE | 2024-06-08 11:46 | DVHPNRES ---
Progress Note Date Seen: Jun 08, 2024 Resident Creating Document: FELICE STINSON RESIDENT Has the PT tested + for MRSA If YES, has PT been informed?: No Medical Necessity Reason Pt with a Central, PICC or Fol: No Subjective Patient reports: Feels better Changes from previous H/P or p: No Changes Objective vital signs Vital Sign Date Time Temp Pulse Resp B/P (MAP) Pulse Ox O2 Delivery O2 Flow Rate FiO2 06/08/24 09:16 145/87 06/08/24 08:30 98.0 87 18 98 98.0 06/08/24 05:35 Room Air* 0 21 Total Intake and Output 06/07/24 06/07/24 06/08/24 15:00 23:00 07:00 Intake Total 0 ml Output Total 0 ml Balance 0 ml medications Current Medications Medications Dose Ordered Sig/Misty Route Start Time Stop Time Status Last Admin Dose Admin Sevelamer HCl 800 mg TIDWM PO 06/07/24 18:00 06/08/24 09:14 800 MG Multivit/Ca Carb/ B Cmplx/FA/Prenat 1 tab DAILY PO 06/08/24 10:00 06/08/24 09:15 1 TAB Amlodipine Besylate 5 mg DAILY PO 06/08/24 10:00 06/08/24 09:16 5 MG Apixaban 5 mg BID PO 06/07/24 22:00 06/08/24 09:15 5 MG Diagnostic Test (Pha) 1 strip ACHS 06/07/24 17:00 06/07/24 22:08 1 STRIP Insulin Human Regular HS SC 06/07/24 22:00 06/07/24 22:18 3 UNITS Insulin Human Regular AC SC 06/07/24 17:00 06/07/24 18:39 3 UNITS Dextrose 50 ml UD PRN IV 06/07/24 14:30 Sodium Chloride 10 ml Q8HR IV 06/07/24 22:00 06/07/24 22:10 10 ML Acetaminophen/ Hydrocodone Bitart 1 tab Q4HP PRN PO 06/07/24 14:30 06/08/24 03:52 1 TAB Ondansetron HCl 4 mg Q4HP PRN IV 06/07/24 14:30 Acetaminophen 650 mg Q6HP PRN PO 06/07/24 14:30 Nitroglycerin 0.4 mg Q5MINP PRN SL 06/07/24 16:45 Morphine Sulfate 2 mg Q30M PRN IV 06/07/24 16:45 Atorvastatin Calcium 40 mg HS PO 06/08/24 22:00 Metoprolol Succinate 50 mg DAILY PO 06/08/24 10:00 Levetiracetam 1,000 mg BID PO 06/08/24 10:00 UNV Levetiracetam 1,000 mg BID PO 06/08/24 10:00 Examination GENERAL:Normal, HEENT:Normal, NECK:Normal, LUNGS:Normal, Right chest patient do have a tunneled catheter, CVS:Normal, ABDOMEN:Normal, MSK:Abnormal, SKIN:Normal, NEURO: unable to check, awake but highly irritated, not willing to answer questions, :Normal He told ' do not disturb me' and pulled the linen on his face to hide. laboratory and microbiology Laboratory Tests 06/08/24 06:13 Test 06/08/24 06:13 Range/Units Serum Glucose 187 H 74-106 mg/dL Labs and/or images reviewed: Labs reviewed by me, Image(s) reviewed by me Problem List/Assessment/Plan Problem List/Assessment/Plan Mr. Goins, a 49-year-old man with a history of hypertension, atrial fibrillation on Eliquis, dyslipidemia, seizure disorder, glaucoma, schizophrenia, and ESRD on hemodialysis, presented to the ED with elevated blood pressure (213/139) and a headache. He was sent by EMS for further evaluation after being noted by home care nursing. He was treated for hypertensive urgency with antihypertensives, including amlodipine, metoprolol tartrate, and hydralazine, resulting in improved blood pressure and reduced headache. He is an extremely poor historian, lives with his sister, and usually seeks healthcare at [facility]. This was his first visit to this hospital. He had his last hemodialysis the previous day and claims not to miss any medication, though the reliability of this information is questionable. Blood pressure improved since admission now in 140s/80s. Actively declining HD in hospital and treatment to several caregivers despite careful counseling. Assessment: # ESRD on HD MWF via tunneled catheter. # secondary hyperphosphatemia, PTH 208, likely due to ESRD but ca++ and P04 stable. # Declining in hospital HD. # Hypertensive urgency, improved # Uncontrolled HTN # Tension headache, improved # Afib RVR, rate controlled. # Seizure disorder # ?Schizophrenia, irritated behavior. Findings: #GFR: 21>20 #Creatinine: 3.21>3.47 last dialysis 06/06 #BUN: 27>31 #I&O: not well documented, aneuric at baseline. #HD tunneled catheter (right chest) #Fluid status: euvolemic, in RA Plan/Recommendation: HD today ,,refused further treatment after 1 hr--non compliant #Strict I&O and check Daily weight, renal diet and continue sevelamer 800 mg tid. #Daily BMP, Serum Phosphorus, PTH Labs and Correct electrolytes #Rest of the management as per primary team. Ok to discharge from Nephrology perspective. Thank you for the opportunity to follow up on your patient. In case of any question feel free to reach out to the Nephrology team. Discussed with Nephrology attending Dr. Friedman. Addendum Patient seen and examined, plan discussed with resident. Agree with above, we will follow closely Plan discussed with: Patient, Other (primary team. ) FELICE STINSON RESIDENT Jun 08, 2024 11:46 SHAYY FRIEDMAN MD Jun 08, 2024 15:16
[2024-06-08] MEDS: METOPROLOL SUCCINATE XL 50 MG TAB PO SCH (12:32)
[2024-06-08] MEDS: levETIRAcetam 500 MG TAB PO SCH (12:33)
[2024-06-08 12:45] LABS: Urine Bacteria None Seen /hpf (None Seen)
[2024-06-08 12:56] LABS: Urine Blood TRACE /uL (Negative); Urine Clarity Clear (Clear); Urine Color Light-Yellow (Yellow); Urine Protein, UAD 3+ (Negative); Urine Specific Gravity 1.017 (1.001-1.035); Urine Squamous Epithelial Cell FEW /hpf (<5); Urine Urobilinogen Normal (Negative); Urine WBC 2 /HPF (0-3)
--- NOTE | 2024-06-08 19:28 | DVHDSRES ---
Discharge Summary Date of Admission Resident Creating Document: CASTRO GARRETT RESIDENT Jun 07, 2024 at 16:34 Date of Discharge: Jun 08, 2024 Admitting Diagnosis Hypertensive emergency Generalized weakness Diabetes mellitus with hyperglycemia Chronic kidney disease on chronic dialysis Wounds: none Labs/Diagnostic Data: Laboratory Results Test 06/08/24 16:42 06/08/24 12:37 06/08/24 06:13 06/07/24 12:12 POC Glucose 223 mg/dl (70-106) Urine Color Light-yellow (Yellow) Urine Clarity Clear (Clear) Urine pH 7.0 (5.0-9.0) Urine Specific [place] 1.017 (1.001-1.035) Urine Protein 3+ (Negative) Urine Ketones Negative (Negative) Urine Blood Trace /uL (Negative) Urine Nitrite Negative (Negative) Urine Bilirubin Negative (Negative) Urine Urobilinogen Normal mg/dL (Negative) Urine Leukocyte Esterase Negative /uL (Negative) Urine RBC 4 /hpf (0 - 3) Urine Microscopic WBC 2 /HPF (0-3) Urine Squamous Epithelial Cells Few /hpf (<5) Urine Bacteria None seen /hpf (None Seen) Urine Glucose 4+ mg/dL (Normal) White Blood Count 7.2 10^3/uL (4.4-10.8) Red Blood Count 3.44 10^6/uL (4.5-5.90) Hemoglobin 10.8 g/dL (13.5-17.5) Hematocrit 30.6 % (41.0-53.0) Mean Corpuscular Volume 89.0 fL (80.0-100.0) Mean Corpuscular Hemoglobin 31.4 pg (28.0-32.0) Mean Corpuscular Hemoglobin Concent 35.3 g/dL (32.0-36.0) Red Cell Distribution Width 15.1 % (11.8-14.3) Platelet Count 286 10^3/uL (140-450) Mean Platelet Volume 6.9 fL (6.9-10.8) Neutrophils (%) (Auto) 56.8 % (37.0-80.0) Lymphocytes (%) (Auto) 30.2 % (10.0-50.0) Monocytes (%) (Auto) 10.2 % (0.0-12.0) Eosinophils (%) (Auto) 2.2 % (0.0-7.0) Basophils (%) (Auto) 0.6 % (0.0-2.0) Neutrophils # (Auto) 4.1 10 ^3/uL (1.6-8.6) Lymphocytes # (Auto) 2.2 10 ^3/uL (0.4-5.4) Monocytes # (Auto) 0.7 10 ^3/uL (0-1.3) Eosinophils # (Auto) 0.2 10 ^3/uL (0-0.8) Basophils # (Auto) 0 10 ^3/uL (0-0.2) Nucleated Red Blood Cells 0.1 % Sodium Level 141 mmol/L (136-145) Potassium Level 3.5 mmol/L (3.5-5.1) Chloride Level 108 mmol/L (98-107) Carbon Dioxide Level 25 mmol/L (20-31) Anion Gap 8 (5-15) Blood Urea Nitrogen 31 mg/dL (9-23) Creatinine 3.47 mg/dL (0.700-1.30) Glomerular Filtration Rate Calc 20 mL/min (>90) BUN/Creatinine Ratio 8.9 (10.0-20.0) Serum Glucose 187 mg/dL (74-106) Hemoglobin A1c 7.7 % A1C (<5.7) Calcium Level 9.5 mg/dL (8.7-10.4) Phosphorus Level 4.2 mg/dL (2.4-5.1) Magnesium Level 1.7 mg/dL (1.6-2.6) Total Bilirubin 0.3 mg/dL (0.2-1.0) Aspartate Amino Transferase (AST) 16 U/L (13-40) Alanine Aminotransferase (ALT) 24 U/L (7-40) Alkaline Phosphatase 240 U/L (46-116) Total Protein 6.0 g/dL (5.7-8.2) Albumin 3.5 g/dL (3.2-4.8) Parathyroid Hormone (Intact) 208.1 pg/mL (18.4-80.1) Influenza Type A Antigen Negative (Negative) Influenza Type B Antigen Negative (Negative) Test 06/07/24 10:22 Troponin I High Sensitivity 21 ng/L (</=54) Other Laboratory Tests 06/08/24 06:13 Brief Hx & Hospital Course: Patient 49-year-old gentleman with past medical history of hypertension, atrial fibrillation, dyslipidemia, seizure disorder, glaucoma, schizophrenia, ESRD on hemodialysis at a [facility] with Dr. Deniz ulloa on MWF came to the ED with a chief complaint of headache and elevated blood pressures noted by home nursing facility. Patient was sent to the ED for further evaluation. On arrival to the hospital, patient had blood pressure 213/139 mmHg had headache following which patient got MPI antihypertensives including amlodipine and hydralazine p.r.n. and blood pressure improved. Patient reported that he also had a stroke about 6 months ago with residual left-sided weakness. He reported constant headaches following which CT head without contrast was done which showed no acute intracranial abnormality with a occipital soft tissue swelling. Chest x-ray showed mild pulmonary vascular congestion but patient did not have shortness of breath, chest pain, dizziness and was saturating more than 95% on room air. Patient was started on all his home medications in the hospital and Nephrology were consulted and the patient had a dialysis on Thursday 06/08 with removal of about 1400 mL of UF after which patient did not wanted continue dialysis anymore. Patient was stable and discharged to home in stable condition advised to strictly be compliant with the medications. Patient reported that he has all his medications at home and did not require any refills. Patient advised to follow up at the dialysis center for the next session on Thursday. Consults/Reason for consult Nephrology consultation for end-stage renal disease Operations or Procedures none Condition at Discharge: Good Final Diagnosis/Problems List # hypertensive urgency # end-stage renal disease with HD on MWF # paroxysmal atrial fibrillation # uncontrolled type 2 diabetes mellitus with hyperglycemia # secondary hyperparathyroidism likely due to ESRD Discharge Disposition: Home Discharge Instruct/Medications Diet: Renal Activity: No Restrictions, As Tolerated Follow Up/Referral: Follow up with the primary care physician in 1 week Follow up at the dialysis center [facility] Medications: As per EMR Strict medication compliance recommended Discharge Statement: "Patient was advised to return to the ER or call 911 if any headaches, dizziness, shortness of breath, chest pain, abdominal pain, bleeding, fevers, or worsening of medical condition. Patient was counseled about treatment plan, medications, possible side effects, patientverbalized understanding. All questions were answered to the best of my ability. This discharge took greater then 30 minutes in planning, reviewing documentation, counseling the patient, and discussing with other team members." ASSESSMENT ASSESSMENT Assessment HYPERTENSIVE URGENCY Date of Service: Jun 08, 2024 Billing Provider: FABRICIO ANTHONY MD Common Visit Codes: [id number]/[id number] DISCH DAY >30min CASTRO GARRETT RESIDENT Jun 08, 2024 19:28 FABRICIO ANTHONY MD Jun 09, 2024 08:49
[2024-06-08] MEDS ORDERED: EPOETIN ALFA-EPBX 4,000 UNIT/ML VIAL SC ONE (21:00)
[2024-06-08] MEDS ORDERED: ATORVASTATIN 20 MG TAB PO SCH (22:00)
== END 2024-06-08 19:07 | disposition home or self-care (01) | DRG 199 ==
LOC: EDBD 09:44 → ER 09:44 → OVERFLOW 16:34 → TELE-WESTW 06-08 03:24
PROVIDERS: ADMIT Student in an Organized Health Care Education/Training Program; ATTEND Student in an Organized Health Care Education/Training Program
PROC: 5A1D70Z Performance of Urinary Filtration, Intermittent, Less than 6 Hours Per Day (ICD-10-PCS; principal; 2024-06-08)
DX: I16.0 Hypertensive urgency (principal); E83.39 Other disorders of phosphorus metabolism; N18.6 End stage renal disease; E11.22 Type 2 diabetes mellitus with diabetic chronic kidney disease; G40.909 Epilepsy, unspecified, not intractable, without status epilepticus; E05.90 Thyrotoxicosis, unspecified without thyrotoxic crisis or storm; I48.0 Paroxysmal atrial fibrillation; E11.65 Type 2 diabetes mellitus with hyperglycemia; I12.0 Hypertensive chronic kidney disease with stage 5 chronic kidney disease or end stage renal disease; Z79.4 Long term (current) use of insulin; Z79.899 Other long term (current) drug therapy; Z88.0 Allergy status to penicillin; Z88.1 Allergy status to other antibiotic agents; Z99.2 Dependence on renal dialysis
CPT/HCPCS: 36415; 70450; 71045; 80048; 80053; 81001; 82962; 83036; 83735; 83970; 84100; 84484; 85025; 87804; 90935; 93005; 96374; 99291; G0378; J1815

== ENCOUNTER 2024-07-08 11:07 | Inpatient (IN) | payer MEDICAID ==
[~2024-07-08] VITALS: Ht 180.3 cm; Wt 92.6 kg
[~2024-07-08 11:07] MED LIST: AMLO1TAB22 PO; APIX5TAB PO; ATOR-507; ATOR-507 PO; BUME1TAB3 PO; INSU100I53; LEVE100020 PO; LEVE750T3 PO; METO-289 PO; OLOP0.1D14 LEFTEYE; QUET50TA27 PO
--- NOTE | 2024-07-08 11:50 | ED.PDOC ---
History of Present Illness HPI Comments 53-year-old male with a history of hypertension, diabetes, paroxysmal AFib, dyslipidemia, schizophrenia, seizures, glaucoma and end-stage renal disease on dialysis brought in by EMS complaining of body pain, chest pain and shortness of breath for the last 3 days. Patient states he missed dialysis 2 days ago due to his current symptoms. He reports subjective fever and cough, but denies nausea, vomiting, diarrhea, sick contacts or other symptoms. Chief Complaint: Body Pain Time Seen by MD: 11:45 Primary Care Provider: unknown Reviewed Notes: Nurses Notes, Explosives Mixer Operator Notes, Medications, Allergies Allergies: Coded Allergies: Erythromycin (Verified Allergy, Unknown, 04/17/24) Penicillins (Verified Allergy, Unknown, 04/17/24) Home Meds Reported Medications Atorvastatin Calcium (Lipitor) 40 Mg Tab, 40 MG PO DAILY 06/07/24 Atorvastatin Calcium (Lipitor) 40 Mg Tab 06/07/24 Quetiapine Fumerate (QUETIAPINE FUMARATE) 50 Mg Tab, 1 TAB PO 06/07/24 Bumetanide (Bumetanide) 1 Mg Tab, 1 TAB PO DAILY 06/07/24 Amlodipine Besylate (Amlodipine Besylate) 5 Mg Tab, 1 TAB PO DAILY 06/07/24 Levetiracetam (Levetiracetam) 1,000 Mg Tab, 1 TAB PO BID 06/07/24 Insulin Lispro (Insulin Lispro Thai Kwi) 100 Unit/Ml Inj 06/07/24 Apixaban Base (ELIQUIS) 5 Mg Tab, PO 06/07/24 Olopatadine HCl (Olopatadine Hydrochloride) 0.1 % Melchor, 1 DROP LEFTEYE BID 06/07/24 Levetiracetam (Levetiracetam) 750 Mg Tab, PO 06/07/24 Metoprolol Succinate (Metoprolol Succinate Er) 50 Mg Tab, 1 TAB PO DAILY 06/07/24 Information Source: Patient Mode of Arrival: EMS Severity: Moderate Timing: Minutes Duration: Since onset, Minutes Prehospital treatment: None Past Medical History PAST MEDICAL HISTORY: AFIB, DM, ESRD (w/ Dr. Guaman M/W/F), High Lipids, HTN, Schizophrenia Surgical History (Other): Includes right chest hemodialysis catheter insertion Family History Family History: Reviewed,noncontributory to illness, Unknown Social History Smoker: Non-Smoker Alcohol: Denies ETOH Use Drugs: Unknown Lives In: Home Constitutional: reports: weakness; denies: chills, diaphoresis, fatigue, fever, malaise, sweats, others EENTM: denies: blurred vision, double vision, ear bleeding, ear discharge, ear drainage, ear pain, ear ringing, eye pain, eye redness, hearing loss, mouth pain, mouth swelling, nasal discharge, nose bleeding, nose congestion, nose pain, photophobia, tearing, throat pain, throat swelling, voice changes, others Respiratory: reports: shortness of breath; denies: cough, hemoptysis, orthopnea, SOB at rest, SOB with excertion, stridor, wheezing, others Cardiovascular: reports: chest pain; denies: dizzy spells, diaphoresis, Dyspnea on exertion, edema, irregular heart beat, left arm pain, lightheadedness, palpitations, PND, syncope, others Gastrointestinal: denies: abdomen distended, abdominal pain, blood streaked bowels, constipated, diarrhea, dysphagia, difficulty swallowing, hematemesis, melena, nausea, poor appetite, poor fluid intake, rectal bleeding, rectal pain, vomiting, others Genitourinary: denies: burning, dysuria, flank pain, frequency, hematuria, incontinence, penile discharge, penile sore, pain, testicle pain, testicle sw elling, urgency, others Neurological: denies: dizziness, fainting, headache, left sided numbness, left sided weakness, numbness, paresthesia, pre-existing deficit, right sided numbness, right sided weakness, seizure, speech problems, tingling, tremors, weakness, others Musculoskeletal: denies: back pain, gout, joint pain, joint swelling, muscle pain, muscle stiffness, neck pain, others Integumetry: denies: bruises, change in color, change in hair/nails, dryness, laceration, lesions, lumps, rash, wounds, others Allergic/Immunocompromised: denies: Difficulty Healing, Frequent Infections, Hives, Itching, others Hematologic/Lymphatic: denies: anemia, blood clots, easy bleeding, easy bruising, swollen glands, others Endocrine: denies: excessive hunger, excessive sweating, excessive thirst, excessive urination, flushing, intolerance to cold, intolerance to heat, unexplained weight gain, unexplained weight loss, others Psychiatric: denies: anxiety, bipolar disorder, depression, hopeless, panic disorder, schizophrenia, sleepless, suicidal, others All Other Systems: Reviewed and Negative Physical Exam General Appearance: Mild Distress HEENT: Other (face symmetric. Moist mucous membranes.) Neck: Full Range of Motion, Normal Inspection Respiratory: No Accessory Muscle Use, No Respiratory Distress, Rales Cardiovascular: No Edema, No JVD, Tachycardia Breast Exam: Deferred Gastrointestinal: Non Tender, Soft Genitalia: Deferred Pelvic: Deferred Rectal: Deferred Extremities: Normal inspection, Normal range of motion, Non-tender, No pedal edema Neurologic: Alert (Oriented x4), Other (Anxious. Moves all extremities.) Cerebellar Function: NOT DONE Reflexes: NOT DONE Skin: Dry, Normal Color, Warm Lymphatic: NOT DONE Was a procedure done? Was a procedure done?: No EKG EKG : Comments Sinus tach, rate 103, normal CA and QRS intervals, QTC prolonged at 481, borderline left axis deviation, possible old inferior infarct, nonspecific T changes. Differential Dx Considerations may include: Fluid overload, electrolyte imbalance, viral syndrome, pneumonia, bronchitis, CHF, ACS, SD, among others X-Ray, Labs, Meds, VS Vital Signs Date Time Temp Pulse Resp B/P (MAP) Pulse Ox O2 Delivery O2 Flow Rate FiO2 07/08/24 14:30 169/107 07/08/24 13:07 96 18 194/126 07/08/24 12:39 201/136 07/08/24 12:24 98.2 97 18 201/136 (157) 97 98.2 07/08/24 12:24 97 18 98 Room Air* 0 21 07/08/24 12:16 101 18 207/133 07/08/24 11:23 98.0 102 18 181/106 (131) 98 98.0 07/08/24 11:13 103 Lab Test 07/08/24 13:03 07/08/24 12:03 Range/Units Troponin I High Sensitivity 15 16 </=54 ng/L White Blood Count 7.1 4.4-10.8 10^3/uL Red Blood Count 4.14 L 4.5-5.90 10^6/uL Hemoglobin 12.8 L 13.5-17.5 g/dL Hematocrit 36.3 L 41.0-53.0 % Mean Corpuscular Volume 87.7 80.0-100.0 fL Mean Corpuscular Hemoglobin 30.9 28.0-32.0 pg Mean Corpuscular Hemoglobin Concent 35.3 32.0-36.0 g/dL Red Cell Distribution Width 14.8 H 11.8-14.3 % Platelet Count 274 140-450 10^3/uL Mean Platelet Volume 7.1 6.9-10.8 fL Neutrophils (%) (Auto) 59.2 37.0-80.0 % Lymphocytes (%) (Auto) 28.7 10.0-50.0 % Monocytes (%) (Auto) 8.5 0.0-12.0 % Eosinophils (%) (Auto) 2.9 0.0-7.0 % Basophils (%) (Auto) 0.7 0.0-2.0 % Neutrophils # (Auto) 4.2 1.6-8.6 10 ^3/uL Lymphocytes # (Auto) 2.0 0.4-5.4 10 ^3/uL Monocytes # (Auto) 0.6 0-1.3 10 ^3/uL Eosinophils # (Auto) 0.2 0-0.8 10 ^3/uL Basophils # (Auto) 0 0-0.2 10 ^3/uL Nucleated Red Blood Cells 0.1 % Sodium Level 140 136-145 mmol/L Potassium Level 4.7 3.5-5.1 mmol/L Chloride Level 108 H 98-107 mmol/L Carbon Dioxide Level 23 20-31 mmol/L Anion Gap 9 5-15 Blood Urea Nitrogen 49 H 9-23 mg/dL Creatinine 4.61 H 0.700-1.30 mg/dL Glomerular Filtration Rate Calc 14 >90 mL/min BUN/Creatinine Ratio 10.6 10.0-20.0 Serum Glucose 185 H 74-106 mg/dL Hemoglobin A1c 8.1 H <5.7 % A1C Calcium Level 9.3 8.7-10.4 mg/dL Triglycerides Level 176 H < 150 mg/dL Cholesterol Level 274 H < 200 mg/dL LDL Cholesterol 188 H < 100 mg/dL HDL Cholesterol 50 40-59 mg/dL Current Medications Medications (Trade) Dose Ordered Sig/Misty Route Start Time Stop Time Status Last Admin Morphine Sulfate 4 mg ONCE ONCE IV 07/08/24 12:00 07/08/24 12:01 DC 07/08/24 12:16 Ondansetron HCl (Zofran) 4 mg ONCE ONCE IV 07/08/24 12:00 07/08/24 12:01 DC 07/08/24 12:15 Nitroglycerin (Nitro-Bid) 1 pkg ONCE ONCE TD 07/08/24 12:00 07/08/24 12:01 DC 07/08/24 12:39 Aspirin 325 mg ONCE ONCE PO 07/08/24 14:15 07/08/24 14:37 DC 07/08/24 14:45 Hydralazine HCl (Apresoline Injection) 10 mg ONCE ONCE IV 07/08/24 14:15 07/08/24 14:37 DC 07/08/24 14:46 PROCEDURE(s): CXRP - CHEST PORTABLE REASON: SOB; MISSED DIALYSIS ORDER NUMBER(s): [id number], ACCESSION NUMBER(s): [id number] EXAM: XY CHEST PORTABLE Indication: SOB; MISSED DIALYSIS Technique: Single frontal view of the chest was obtained Comparison: XY CHEST PORTABLE on DOS: 06/07/24 FINDINGS: Lines and Tubes: Right tunneled dialysis catheter tip projects over the right atrium. Lungs: No focal consolidation. Pleura: No effusion. No pneumothorax. Cardiomediastinal contours: Unremarkable Bones: No acute osseous abnormality. IMPRESSION: No acute cardiopulmonary disease. X-Ray, Labs, Meds, VS Comment 53-year-old male with a history of hypertension, diabetes, paroxysmal AFib, dyslipidemia, seizures, glaucoma, schizophrenia and end-stage renal disease on hemodialysis presenting with body aches, chest pain, shortness a breath and missed dialysis 2 days ago. Vitals remarkable for heart rate 103, BP 181/106 Exam remarkable for rales at lung bases and tachycardia Rhythm strip independently interpreted by me: Sinus tach, rate 103, no ectopy. Chest x-ray unremarkable CBC unremarkable, metabolic panel remarkable for BUN 49, creatinine 4.6, troponin negative x2, influenza and COVID negative Patient treated with the following in the ED: Morphine 4 mg IV, Zofran 4 mg IV, Nitro-Bid 1/2 inch to chest wall, hydralazine 10 mg IV, asa 325mg po On re-evaluation, blood pressure is improving. Patient states pain has im proved. Vitals were stable. Plan is to admit the patient for dialysis and Cardiology evaluation. Time of 1ST Reevaluation: 12:15 Reevaluation 1ST: Unchanged Patient Education/Counseling: Diagnosis, Treatment, Prognosis Family Education/Counseling: No Family Present Departure 1 Departure Time of Disposition: 14:09 Impression: Primary Impression: Hypertensive urgency Additional Impressions: Chest pain with high risk of acute coronary syndrome Missed dialysis Disposition: 09 ADMITTED INPATIENT Admit to: Tele Condition: Guarded Critical Care Note Critical Care Time?: No Stability Stability form required: No Heart Score Heart Score: Heart Score Response (Comments) Value History Moderate Suspicious 1 EKG Repolarization Disturb 1 Age 45-64 1 Risk Factors >3 or Hx ASHD 2 Troponin Normal limit 0 Total 5 I personally scribed for QASIM BEJARANO MD ([email or web address]) on 07/08/24 at 11:50. Electronically submitted by Chas Mata ([email or web address]). QASIM BEJARANO MD Jul 08, 2024 11:50
[2024-07-08 12:13] LABS: Basophils # (auto) 0 10 ^3/uL (0-0.2); Basophils % (auto) 0.7 % (0.0-2.0); Eosinophils # (auto) 0.2 10 ^3/uL (0-0.8); Eosinophils % (auto) 2.9 % (0.0-7.0); Hematocrit 36.3 % (41.0-53.0); Hemoglobin 12.8 g/dL (13.5-17.5); Lymphocytes % (auto) 28.7 % (10.0-50.0); Mean Corpuscular Hemoglobin 30.9 pg (28.0-32.0); Mean Corpuscular Hgb Conc. 35.3 g/dL (32.0-36.0); Mean Corpuscular Volume 87.7 fL (80.0-100.0); Monocytes # (auto) 0.6 10 ^3/uL (0-1.3); Monocytes % (auto) 8.5 % (0.0-12.0); Neutrophils # (auto) 4.2 10 ^3/uL (1.6-8.6); Neutrophils % (auto) 59.2 % (37.0-80.0); Nucleated Red Blood Cells % 0.1 %; Platelet Count (auto) 274 10^3/uL (140-450); Red Blood Cells 4.14 10^6/uL (4.5-5.90); Red Cell Distribution Width 14.8 % (11.8-14.3); White Blood Cell 7.1 10^3/uL (4.4-10.8)
[2024-07-08] MEDS: ONDANSETRON HCL 4 MG/2 ML VIAL IV ONE (12:15)
[2024-07-08] MEDS: MORPHINE SULFATE 4 MG/ML SYR/VIAL IV ONE (12:16)
[2024-07-08 12:20] LABS: Potassium 4.7 mmol/L (3.5-5.1); Sodium 140 mmol/L (136-145)
[2024-07-08 12:21] LABS: Anion Gap 9 (5-15); Calcium 9.3 mg/dL (8.7-10.4); Carbon Dioxide 23 mmol/L (20-31)
[2024-07-08 12:22] LABS: Chloride 108 mmol/L (98-107)
[2024-07-08 12:24] VITALS: PULSE 97; RESP 18; O2SAT 98
[2024-07-08 12:26] LABS: BUN/Creatinine Ratio 10.6 (10.0-20.0); Blood Urea Nitrogen 49 mg/dL (9-23); Glucose 185 mg/dL (74-106)
[2024-07-08] MEDS: NITROGLYCERIN 2% OINT 1GM PKG TD ONE (12:39)
--- NOTE | 2024-07-08 12:52 | DVH ---
EXAM: XY CHEST PORTABLE Indication: SOB; MISSED DIALYSIS Technique: Single frontal view of the chest was obtained Comparison: XY CHEST PORTABLE on DOS: 06/07/24 FINDINGS: Lines and Tubes: Right tunneled dialysis catheter tip projects over the right atrium. Lungs: No focal consolidation. Pleura: No effusion. No pneumothorax. Cardiomediastinal contours: Unremarkable Bones: No acute osseous abnormality. IMPRESSION: No acute cardiopulmonary disease.
[2024-07-08] MEDS: ASPirin 325 MG TAB PO ONE (14:45)
[2024-07-08] MEDS ORDERED: DEXTROSE (50%) 50ML SYRG IV PRN (14:45)
[2024-07-08] MEDS ORDERED: ONDANSETRON HCL 4 MG/2 ML VIAL IV PRN (14:45)
[2024-07-08] MEDS ORDERED: MORPHINE SULFATE INJ 2 MG/ml SYRG IV PRN (14:45)
[2024-07-08] MEDS ORDERED: NITROGLYCERIN 0.4 MG SL TAB SL PRN (14:45)
[2024-07-08] MEDS: hydrALAZINE HCL 20 MG/ML VL IV ONE (14:46)
--- NOTE | 2024-07-08 15:12 | DVHHP2 ---
History of Present Illness Reason for Visit: Chest pain History of Present Illness Stu Goins is a 53-year-old male with past medical history of hypertension, hyperlipidemia, diabetes type 2, AFib, end-stage renal disease on HD (M/W/F), schizophrenia, seizures, and glaucoma presents to the ED with body pain, shortness of breath, and chest pain x3 days. When asked about the pain patient reports that it is 10/10 constant and "I do not know" what it feels like. Patient reports that nothing makes the pain better or worse. Denies any recent trauma or injury, recent sick contacts, recent travels, abdominal pain, nausea, vomiting, diarrhea, lightheadedness, weakness, or dizziness. Patient also reports that he uses a front wheel walker to ambulate. He reports that he lives at home with a sister. 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 Psych: Schizophrenia Renal/: Chronic renal failure Endocrine: Diabetes Past Medical History Glaucoma Past Surgical History: None Family History: None Smoke: No ALCOHOL: none Drugs: None Lives: with Family Domestic Violence: Neg Review of Systems Constitutional: Yes: Other Respiratory: Shortness of breath Cardiovascular: Chest Pain Allergies: Coded Allergies: Erythromycin (Verified Allergy, Unknown, 04/17/24) Penicillins (Verified Allergy, Unknown, 04/17/24) Exam Vital Signs Vital Signs Date Time Temp Pulse Resp B/P (MAP) Pulse Ox O2 Delivery O2 Flow Rate FiO2 07/08/24 14:46 169/107 07/08/24 13:07 96 18 07/08/24 12:24 98.2 97 98.2 07/08/24 12:24 Room Air* 0 21 General Appearance: Alert, Oriented X3, Cooperative HEENT: Atraumatic, PERRLA, EOMI, Mucous membr. moist/pink Respiratory: Clear to auscultation, Normal air movement Cardiovascular: Normal S1, Normal S2, No murmurs Abdominal: Normal bowel sounds, Soft, No tenderness, No hepatospenomegaly Extremities: No clubbing, No cyanosis, Normal pulses Skin: No significant lesion Neuro: Normal speech, Strength at 5/5 X4 ext, Normal tone, Sensation intact Psych/Mental Status: Mental status NL, Mood NL Labs/Xrays Labs Test 07/08/24 14:38 07/08/24 13:03 07/08/24 12:03 Range/Units Troponin I High Sensitivity 15 </=54 ng/L White Blood Count 7.1 4.4-10.8 10^3/uL Red Blood Count 4.14 L 4.5-5.90 10^6/uL Hemoglobin 12.8 L 13.5-17.5 g/dL Hematocrit 36.3 L 41.0-53.0 % Mean Corpuscular Volume 87.7 80.0-100.0 fL Mean Corpuscular Hemoglobin 30.9 28.0-32.0 pg Mean Corpuscular Hemoglobin Concent 35.3 32.0-36.0 g/dL Red Cell Distribution Width 14.8 H 11.8-14.3 % Platelet Count 274 140-450 10^3/uL Mean Platelet Volume 7.1 6.9-10.8 fL Neutrophils (%) (Auto) 59.2 37.0-80.0 % Lymphocytes (%) (Auto) 28.7 10.0-50.0 % Monocytes (%) (Auto) 8.5 0.0-12.0 % Eosinophils (%) (Auto) 2.9 0.0-7.0 % Basophils (%) (Auto) 0.7 0.0-2.0 % Neutrophils # (Auto) 4.2 1.6-8.6 10 ^3/uL Lymphocytes # (Auto) 2.0 0.4-5.4 10 ^3/uL Monocytes # (Auto) 0.6 0-1.3 10 ^3/uL Eosinophils # (Auto) 0.2 0-0.8 10 ^3/uL Basophils # (Auto) 0 0-0.2 10 ^3/uL Nucleated Red Blood Cells 0.1 % Sodium Level 140 136-145 mmol/L Potassium Level 4.7 3.5-5.1 mmol/L Chloride Level 108 H 98-107 mmol/L Carbon Dioxide Level 23 20-31 mmol/L Anion Gap 9 5-15 Blood Urea Nitrogen 49 H 9-23 mg/dL Creatinine 4.61 H 0.700-1.30 mg/dL Glomerular Filtration Rate Calc 14 >90 mL/min BUN/Creatinine Ratio 10.6 10.0-20.0 Serum Glucose 185 H 74-106 mg/dL Calcium Level 9.3 8.7-10.4 mg/dL EXAM: XY CHEST PORTABLE Indication: SOB; MISSED DIALYSIS Technique: Single frontal view of the chest was obtained Comparison: XY CHEST PORTABLE on DOS: 06/07/24 FINDINGS: Lines and Tubes: Right tunneled dialysis catheter tip projects over the right atrium. Lungs: No focal consolidation. Pleura: No effusion. No pneumothorax. Cardiomediastinal contours: Unremarkable Bones: No acute osseous abnormality. IMPRESSION: No acute cardiopulmonary disease. Assessment/Plan Assessment/Plan Assessment Chest pain Hypertensive urgency Acute on chronic renal failure on dialysis (M/W/F) History of hypertension History of hyperlipidemia History of diabetes type 2 History of schizophrenia History of seizure History of glaucoma Plan Admit to tele P.r.n. antihypertensives Duo nebs Nitro given ED Antiemetics Pain management Chest x-ray noted EKG Troponin negative x2 COVID test Flu test UA Hemoglobin A1c ISS and Accu-Cheks Diet Echo ordered UDS Lipid panel Home medications reconciled DVT prophylaxis-patient on apixaban PUD prophylaxis-Protonix Discussed plan of care with patient and nurse Nephro consulted Plan discussed with: Patient My Orders Orders - MICHELLE PETERSEN DIRECTOR LABOR STANDARDS Procedure Category Date Status Time Glucose Blood PHA 07/08/24 Transmitted (Accu-Chek Comfort 17:00 Mild Sliding Scale PHA 07/08/24 Transmitted 17:00 Dextrose 50% Syringe PHA 07/08/24 Transmitted 14:45 Hemoglobin A1c LAB 07/08/24 Transmitted 14:33 Admit ADMIT 07/08/24 Transmitted 14:33 Allergies YOLY 07/08/24 Transmitted 14:33 Code Status CODE 07/08/24 Transmitted 14:33 Hydrocodone-Acet PHA 07/08/24 Transmitted 5/325mg Tab ([place] 14:45 Ondansetron Hcl PHA 07/08/24 Transmitted (Zofran) 14:45 Complete Blood Count LAB 07/09/24 Verified 04:00 Comprehensive LAB 07/09/24 Verified Metabolic Panel 04:00 Cardiac DIET 07/08/24 Transmitted Diet-2gna,Lofat,Lochol Dinner Enoxaparin Sodium PHA 07/09/24 Transmitted (Lovenox) 10:00 Acetaminophen Tablet PHA 07/08/24 Transmitted (Tylenol Tablet) 14:45 Nitroglycerin PHA 07/08/24 Transmitted Sublingual (Ntrostat 14:45 Morphine Sulfate PHA 07/08/24 Transmitted Injection 14:45 Stat Ekg For Chest YOLY 07/08/24 Transmitted Pain 14:33 Notify Of Changes YOLY 07/08/24 Transmitted From Base 14:33 Manager Mobile For YOLY 07/08/24 Transmitted 24 Hours 14:33 Emergency Dysrhythmia YOLY 07/08/24 Transmitted Protocol 14:33 Rhythm Strips Once YOLY 07/08/24 Transmitted Every Shift 14:33 Oxygen By Nasal RT 07/08/24 Transmitted Cannula 14:33 *Dr. Guaman Group CONS 07/08/24 Transmitted -[place] 14:33 Urinalysis LAB 07/08/24 Transmitted 14:33 Echo 2d Mode Cardiac US 07/08/24 Logged DOP 14:33 Lipid Panel LAB 07/08/24 Transmitted 14:33 Drug Screen LAB 07/08/24 Transmitted 14:33 Amlodipine Tablet PHA 07/09/24 Transmitted (Norvasc Tablet) 10:00 Apixaban (Eliquis) PHA 07/09/24 Transmitted 10:00 Bumetanide Tablet PHA 07/09/24 Transmitted (Bumex Tablet) 10:00 Metoprolol Xl PHA 07/09/24 Transmitted Succinate (Toprol Xl) 10:00 (Nf) Atorvastatin PHA 07/09/24 Transmitted Calcium (Lipitor) 10:00 (Nf) Levetiracetam PHA 07/08/24 Transmitted 22:00 Quetiapine Fumarate PHA 07/08/24 Transmitted Tablet (Seroquel Tab 22:00 Date of Service: Jul 08, 2024 Billing Provider: MICHELLE PETERSEN Common Visit Codes: [id number] INP/OBS CARE (HIGH) MICHELLE PETERSEN Jul 08, 2024 15:12
[2024-07-08 15:30] LABS: Rapid Influenza A Negative (Negative); Rapid Influenza B Negative (Negative)
[2024-07-08 15:31] LABS: COVID19 ANTIGEN SOFIA FIA NEGATIVE (NEGATIVE)
[2024-07-08 15:40] LABS: HDL Cholesterol 50 mg/dL (40-59)
[2024-07-08 15:53] LABS: Cholesterol 274 mg/dL (< 200); LDL Cholesterol 188 mg/dL (< 100); Triglycerides 176 mg/dL (< 150)
--- NOTE | 2024-07-08 17:00 | DVH ---
INDICATION: livier TECHNIQUE: Multiple real-time sonographic images of the kidneys and bladder were obtained. COMPARISON: None FINDINGS: The right kidney measures 9 cm in length, which is normal in size. There is normal echogeni city of the right kidney. No hydronephrosis. The left kidney measures 10 cm in length, which is normal in size. There is normal echogenicity of th e left kidney. No hydronephrosis. No large intraluminal masses are seen in the bladder. Prior to voiding the bladder volume measures vo lume 737 cc. IMPRESSION: 1. Normal sonographic appearance of the kidneys. No hydronephrosis. 2. Distended bladder.
[2024-07-08] MEDS: PANTOPRAZOLE 40 MG/10 ML VIAL INJ IV SCH (17:07)
[2024-07-08] MEDS: hydrALAZINE HCL 20 MG/ML VL IV PRN (17:07)
[2024-07-08] MEDS: ACCU-CHEK COMFORT CURVE STRIP VI SCH (17:20)
[2024-07-08] MEDS: InsuLIN REG 1unit/0.01ml Soln (100units/ml) SC SCH (17:38)
[2024-07-08] MEDS: HYDROcodone-ACET 5/325MG TAB PO PRN (17:42)
--- NOTE | 2024-07-08 19:00 | ECG ---
[facility] Test Date: 2024-07-08 Test Time: 11:11:02 Pat Name: ASHELY ZELAYA Department: ED Room: 0214T Gender: M Internal Audit Director: CHANELL : 1970 Requested By: QASIM RAUSCH Order Number: [id number] Reading MD: Andrew Fish Measurements Intervals [place] Rate: 103 P: 61 CT: 147 QRS: 11 QRSD: 88 T: 92 QT: 367 QTc: 481 Interpretive Statements Sinus tachycardia Nonspecific T abnormalities, lateral leads Borderline prolonged QT interval Electronically Signed On 07-13-2024 12:38:13 PDT by Andrew Fish Please click the below link to view image of tracing.
[2024-07-08 19:16] VITALS: PULSE 101; RESP 8; O2SAT 98
[2024-07-08 20:46] LABS: Urine Bacteria None Seen /hpf (None Seen)
[2024-07-08 21:09] LABS: Urine Blood 1+ /uL (Negative); Urine Clarity Clear (Clear); Urine Color Light-Yellow (Yellow); Urine Protein, UAD 3+ (Negative); Urine Specific Gravity 1.019 (1.001-1.035); Urine Squamous Epithelial Cell None Seen /hpf (<5); Urine Urobilinogen Normal (Negative); Urine WBC < 1 /HPF (0-3); Urine pH 6.5 (5.0-9.0)
[2024-07-08 21:35] LABS: Creatinine, Urine 80.38 mg/dL (30.0-125.0); Opiate Scree,Urine Neg (NEGATIVE)
[2024-07-08 21:36] LABS: Cannabinoid Screen, Urine Pos (NEGATIVE)
[2024-07-08 21:43] LABS: Amphetamine Screen, Urine Pos (NEGATIVE); Barbiturate Scree,Urine Neg (NEGATIVE); Benzodiazephine Screen, Urine Neg (NEGATIVE); Cocaine Screen, Urine Neg (NEGATIVE); Phencyclidine Screen, Urine Neg (NEGATIVE); Protein, Urine 1150.9 mg/dL (1-14)
[2024-07-08] MEDS: ATORVASTATIN 20 MG TAB PO SCH (21:50)
[2024-07-08] MEDS: QUEtiapine FUMARATE 25 MG TAB PO SCH (21:50)
[2024-07-08] MEDS: levETIRAcetam 500 MG TAB PO SCH (22:04)
[2024-07-08 22:40] VITALS: PULSE 93
[2024-07-08 22:50] VITALS: BP 132/77; PULSE 96; RESP 20; TEMP 98.6; O2SAT 99
[2024-07-08 23:34] VITALS: PULSE 96; RESP 20; O2SAT 99
[2024-07-09 01:00] VITALS: BP 130/74; PULSE 109; RESP 18; TEMP 98.6; O2SAT 99
[2024-07-09 05:00] VITALS: BP 128/76; PULSE 93; RESP 18; TEMP 98.6; O2SAT 99
[2024-07-09 05:55] LABS: Basophils # (auto) 0 10 ^3/uL (0-0.2); Basophils % (auto) 0.7 % (0.0-2.0); Eosinophils # (auto) 0.2 10 ^3/uL (0-0.8); Eosinophils % (auto) 3.2 % (0.0-7.0); Hemoglobin 11.3 g/dL (13.5-17.5); Lymphocytes # (auto) 1.8 10 ^3/uL (0.4-5.4); Lymphocytes % (auto) 30.8 % (10.0-50.0); Mean Corpuscular Hemoglobin 30.9 pg (28.0-32.0); Mean Corpuscular Hgb Conc. 34.2 g/dL (32.0-36.0); Mean Corpuscular Volume 90.2 fL (80.0-100.0); Monocytes # (auto) 0.5 10 ^3/uL (0-1.3); Monocytes % (auto) 9.3 % (0.0-12.0); Neutrophils # (auto) 3.2 10 ^3/uL (1.6-8.6); Nucleated Red Blood Cells % 0.1 %; Platelet Count (auto) 253 10^3/uL (140-450); Red Blood Cells 3.66 10^6/uL (4.5-5.90); Red Cell Distribution Width 14.4 % (11.8-14.3); White Blood Cell 5.7 10^3/uL (4.4-10.8)
[2024-07-09 06:08] LABS: Alanine Aminotransferase 12 U/L (7-40); Albumin 3.4 g/dL (3.2-4.8); Alkaline Phosphatase 104 U/L (46-116); Anion Gap 10 (5-15); BUN/Creatinine Ratio 9.6 (10.0-20.0); Calcium 9.4 mg/dL (8.7-10.4); Potassium 4.2 mmol/L (3.5-5.1); Sodium 140 mmol/L (136-145); Total Protein 5.9 g/dL (5.7-8.2); Uric Acid 6.3 mg/dL (3.7-9.2)
[2024-07-09 06:11] LABS: Aspartate Aminotransferase 10 U/L (13-40); Bilirubin, Total 0.3 mg/dL (0.2-1.0); Blood Urea Nitrogen 45 mg/dL (9-23); Carbon Dioxide 20 mmol/L (20-31); Chloride 110 mmol/L (98-107); Glucose 127 mg/dL (74-106)
[2024-07-09 08:00] VITALS: PULSE 93
[2024-07-09 09:00] VITALS: BP 160/107; PULSE 90; RESP 19; TEMP 97.6; O2SAT 96
[2024-07-09] MEDS ORDERED: ENOXAPARIN SOD 30 MG/0.3 ML SYRINGE SC SCH (10:00)
[2024-07-09] MEDS: amLODIPine BESYLATE 5 MG TAB PO SCH (10:00)
[2024-07-09] MEDS: BUMETANIDE 1 MG TAB PO SCH (10:00)
[2024-07-09] MEDS: APIXABAN 5 MG TAB PO SCH (10:00)
[2024-07-09] MEDS: METOPROLOL SUCCINATE XL 50 MG TAB PO SCH (10:00)
[2024-07-09 13:00] VITALS: BP 170/100; PULSE 89; RESP 18; TEMP 97; O2SAT 98
--- NOTE | 2024-07-09 13:05 | DVHPN2 ---
Subjective The patient is seen and examined at bedside. Still have chest pain. Reviewed: Care Plan, H&P, Labs, Medications, Previous Orders, Radiology Changes from previous H/P or p: No Changes General: Per HPI Cardiovascular: Chest Pain Respiratory: Shortness of breath Objective Vitals Vital Signs Date Time Temp Pulse Resp B/P (MAP) Pulse Ox O2 Delivery O2 Flow Rate FiO2 07/09/24 12:54 170/100 07/09/24 09:00 97.6 90 19 96 97.6 07/09/24 08:00 Room Air* 0 21 Intake/Output Intake and Output 07/09/24 07:00 Intake Total 200 ml Output Total 0 ml Balance 200 ml Intake Oral 200 ml Output Urine Total 0 ml General Appearance: Alert, Oriented X3, Cooperative, No acute distress HEENT: Atraumatic, PERRLA, EOMI, Mucous membr. moist/pink Neck: Supple Lungs: Clear to auscultation, Normal air movement Cardiovascular: Regular rate, Normal S1, Normal S2, No murmurs, Gallops, Rubs Abdomen: Normal bowel sounds, Soft, No tenderness Neuro: Cranial nerves 3-12 NL Psych/Mental Status: Mental status NL Medications Current Medications Medications Dose Ordered Sig/Misty Route Start Time Stop Time Status Last Admin Dose Admin Diagnostic Test (Pha) 1 strip ACHS 07/08/24 17:00 07/09/24 12:25 1 STRIP Insulin Human Regular ACHS SC 07/08/24 17:00 07/09/24 12:52 2 UNITS Dextrose 50 ml UD PRN IV 07/08/24 14:45 Acetaminophen/ Hydrocodone Bitart 1 tab Q4HP PRN PO 07/08/24 14:45 07/08/24 17:42 1 TAB Ondansetron HCl 4 mg Q4HP PRN IV 07/08/24 14:45 Acetaminophen 650 mg Q6HP PRN PO 07/08/24 14:45 Nitroglycerin 0.4 mg Q5MINP PRN SL 07/08/24 14:45 Morphine Sulfate 2 mg Q30M PRN IV 07/08/24 14:45 Amlodipine Besylate 5 mg DAILY PO 07/09/24 10:00 Apixaban 5 mg DAILY PO 07/09/24 10:00 Bumetanide 1 mg DAILY PO 07/09/24 10:00 Metoprolol Succinate 50 mg DAILY PO 07/09/24 10:00 Atorvastatin Calcium 40 mg HS PO 07/08/24 22:00 07/08/24 21:50 40 MG Levetiracetam 1,000 mg BID PO 07/08/24 22:00 07/08/24 22:04 1,000 MG Quetiapine Fumarate 50 mg HS PO 07/08/24 22:00 07/08/24 21:50 50 MG Pantoprazole Sodium 40 mg DAILY IV 07/08/24 15:30 07/08/24 17:07 40 MG Hydralazine HCl 10 mg Q6HP PRN IV 07/08/24 15:30 07/09/24 12:54 10 MG Laboratory Results Laboratory Tests 07/09/24 05:09 Chemistry Test 07/09/24 05:09 Albumin 3.4 g/dL (3.2-4.8) Calcium Level 9.4 mg/dL (8.7-10.4) Total Protein 5.9 g/dL (5.7-8.2) LFT Test 07/09/24 05:09 Alanine Aminotransferase (ALT) 12 U/L (7-40) Alkaline Phosphatase 104 U/L (46-116) Aspartate Amino Transferase (AST) 10 U/L (13-40) L Total Bilirubin 0.3 mg/dL (0.2-1.0) HgA1c, TSH Test 07/09/24 05:09 Thyroid Stimulating Hormone (TSH) 3.54 uIU/mL (0.55-4.78) Urinalysis Test 07/08/24 20:31 Urine Color Light-yellow (Yellow) Urine Clarity Clear (Clear) Urine pH 6.5 (5.0-9.0) Urine Specific [place] 1.019 (1.001-1.035) Urine Protein 3+ (Negative) H Urine Ketones Negative (Negative) Urine Blood 1+ /uL (Negative) H Urine Nitrite Negative (Negative) Urine Bilirubin Negative (Negative) Urine Urobilinogen Normal mg/dL (Negative) Urine Leukocyte Esterase Negative /uL (Negative) Urine RBC 4 /hpf (0 - 3) Urine Microscopic WBC < 1 /HPF (0-3) Urine Squamous Epithelial Cells None seen /hpf (<5) Urine Bacteria None seen /hpf (None Seen) Urine Creatinine 80.38 mg/dL (30.0-125.0) Urine Sodium 71 mmol/L (40-220) Urine Glucose 3+ mg/dL (Normal) H Urine Total Protein 1150.9 mg/dL (1-14) H Labs and/or images reviewed: Labs reviewed by me Assessment/Plan Assessment/Plan Chest pain Hypertensive urgency Acute on chronic renal failure on dialysis (M/W/F) History of hypertension Hyperlipidemia Diabetes type 2 Schizophrenia Seizure History of glaucoma Plan Continuing current management. Continuing with IV hydralazine. Continuing with DuoNeb. With nitroglycerin and Zofran. Continuing with morphine and Eloy for pain control. Continuing with sliding scale insulin Appreciate Nephrology's input. continuing hemodialysis PUD prophylaxis-Protonix This medical document was created using an electronic medical record system with [employer] computerized dictation system. Although this document has been carefully reviewed, there may still be some phonetic and typographical errors. These areas are purely typographical due to imperfections of the software programs, and do not reflect any compromise in the patient's medical care. Plan discussed with: Patient Date of Service: Jul 09, 2024 Billing Provider: PEGGY DIEZ MD Common Visit Codes: [id number] INP/OBS CARE(HIGH) PEGGY DIEZ MD Jul 09, 2024 13:05
--- NOTE | 2024-07-09 14:07 | DVHINCON2 ---
Date of service: Jul 09, 2024 Referring Physician Kaylin Reason for Consultation ESRD History of Present Illness 53 y/o male with past medical hx of HTN, type 2 DM, ESRD on HD M/W/F, seizures, schizophrenia, hyperlipidemia, A fib. Admitted for CP. Nephrology consult for ESRD. HPI limited d/t pt unable to provide information hx obtained through the medical record. Past Medical History HTN, type 2 DM, ESRD on HD M/W/F, seizures, schizophrenia, hyperlipidemia, A fib. Obtained through the medical record, as pt is unable to provide Allergies: Coded Allergies: Erythromycin (Verified Allergy, Unknown, 04/17/24) Penicillins (Verified Allergy, Unknown, 04/17/24) Home Meds Reported Medications Atorvastatin Calcium (Lipitor) 40 Mg Tab, 40 MG PO DAILY 06/07/24 Quetiapine Fumerate (QUETIAPINE FUMARATE) 50 Mg Tab, 1 TAB PO 06/07/24 Bumetanide (Bumetanide) 1 Mg Tab, 1 TAB PO DAILY 06/07/24 Amlodipine Besylate (Amlodipine Besylate) 5 Mg Tab, 1 TAB PO DAILY 06/07/24 Levetiracetam (Levetiracetam) 1,000 Mg Tab, 1 TAB PO BID 06/07/24 Insulin Lispro (Insulin Lispro Thai Kwi) 100 Unit/Ml Inj 06/07/24 Apixaban Base (ELIQUIS) 5 Mg Tab, PO 06/07/24 Olopatadine HCl (Olopatadine Hydrochloride) 0.1 % Melchor, 1 DROP LEFTEYE BID 06/07/24 Metoprolol Succinate (Metoprolol Succinate Er) 50 Mg Tab, 1 TAB PO DAILY 06/07/24 Current Medications Current Medications Medications (Trade) Dose Ordered Sig/Misty Route PRN Reason Start Time Stop Time Status Last Admin Enoxaparin Sodium (Lovenox) 30 mg DAILY SC 07/09/24 10:00 07/08/24 16:02 DC Amlodipine Besylate (Norvasc Tablet) 5 mg DAILY PO 07/09/24 10:00 Apixaban (Eliquis) 5 mg DAILY PO 07/09/24 10:00 Bumetanide (Bumex Tablet) 1 mg DAILY PO 07/09/24 10:00 Metoprolol Succinate (Toprol Xl) 50 mg DAILY PO 07/09/24 10:00 Family History: Patient reports no known family medical history. Review of Systems 10 systems reviewed and negative except as per HPI H&P Exam Vital Signs/I&O Vital Sign Date Time Temp Pulse Resp B/P (MAP) Pulse Ox O2 Delivery O2 Flow Rate FiO2 07/09/24 16:59 98.7 97 20 146/89 (108) 96 98.7 07/09/24 08:00 Room Air* 0 21 Intake and Output 07/08/24 07/09/24 19:00 07:00 Intake Total 200 ml Output Total 0 ml Balance 200 ml Intake Oral 200 ml Output Urine Total 0 ml Physical Exam Gen: Appears stated age, no acute distress Lungs: Bilateral air entry, no rales CVS: RRR Abd: soft, nondistended, normoactive bowel sounds Ext: No edema Neuro: Alert Labs/Diagnostic Data Labs/Diagnostic Data Laboratory Tests Test 07/09/24 16:30 07/09/24 12:17 07/09/24 06:11 07/09/24 05:09 Range/Units POC Glucose 164 H 158 H 127 H 70-106 mg/dl White Blood Count 5.7 4.4-10.8 10^3/uL Red Blood Count 3.66 L 4.5-5.90 10^6/uL Hemoglobin 11.3 L 13.5-17.5 g/dL Hematocrit 33.0 L 41.0-53.0 % Mean Corpuscular Volume 90.2 80.0-100.0 fL Mean Corpuscular Hemoglobin 30.9 28.0-32.0 pg Mean Corpuscular Hemoglobin Concent 34.2 32.0-36.0 g/dL Red Cell Distribution Width 14.4 H 11.8-14.3 % Platelet Count 253 140-450 10^3/uL Mean Platelet Volume 7.0 6.9-10.8 fL Neutrophils (%) (Auto) 56.0 37.0-80.0 % Lymphocytes (%) (Auto) 30.8 10.0-50.0 % Monocytes (%) (Auto) 9.3 0.0-12.0 % Eosinophils (%) (Auto) 3.2 0.0-7.0 % Basophils (%) (Auto) 0.7 0.0-2.0 % Neutrophils # (Auto) 3.2 1.6-8.6 10 ^3/uL Lymphocytes # (Auto) 1.8 0.4-5.4 10 ^3/uL Monocytes # (Auto) 0.5 0-1.3 10 ^3/uL Eosinophils # (Auto) 0.2 0-0.8 10 ^3/uL Basophils # (Auto) 0 0-0.2 10 ^3/uL Nucleated Red Blood Cells 0.1 % Sodium Level 140 136-145 mmol/L Potassium Level 4.2 3.5-5.1 mmol/L Chloride Level 110 H 98-107 mmol/L Carbon Dioxide Level 20 20-31 mmol/L Anion Gap 10 5-15 Blood Urea Nitrogen 45 H 9-23 mg/dL Creatinine 4.69 H 0.700-1.30 mg/dL Glomerular Filtration Rate Calc 14 >90 mL/min BUN/Creatinine Ratio 9.6 L 10.0-20.0 Serum Glucose 127 H 74-106 mg/dL Uric Acid 6.3 3.7-9.2 mg/dL Calcium Level 9.4 8.7-10.4 mg/dL Total Bilirubin 0.3 0.2-1.0 mg/dL Aspartate Amino Transferase (AST) 10 L 13-40 U/L Alanine Aminotransferase (ALT) 12 7-40 U/L Alkaline Phosphatase 104 46-116 U/L Total Protein 5.9 5.7-8.2 g/dL Albumin 3.4 3.2-4.8 g/dL Thyroid Stimulating Hormone (TSH) 3.54 0.55-4.78 uIU/mL Test 07/08/24 21:44 07/08/24 20:31 07/08/24 14:38 07/08/24 13:03 Range/Units POC Glucose 163 H 70-106 mg/dl Urine Color Light-yellow Yellow Urine Clarity Clear Clear Urine pH 6.5 5.0-9.0 Urine Specific [place] 1.019 1.001-1.035 Urine Protein 3+ H Negative Urine Ketones Negative Negative Urine Blood 1+ H Negative /uL Urine Nitrite Negative Negative Urine Bilirubin Negative Negative Urine Urobilinogen Normal Negative mg/dL Urine Leukocyte Esterase Negative Negative /uL Urine RBC 4 0 - 3 /hpf Urine Microscopic WBC < 1 0-3 /HPF Urine Squamous Epithelial Cells None seen <5 /hpf Urine Bacteria None seen None Seen /hpf Urine Creatinine 80.38 30.0-125.0 mg/dL Urine Sodium 71 40-220 mmol/L Urine Glucose 3+ H Normal mg/dL Urine Total Protein 1150.9 H 1-14 mg/dL Urine Opiates Screen Neg NEGATIVE Urine Fentanyl Screen Neg NEGATIVE Urine Barbiturates Screen Neg NEGATIVE Urine Phencyclidine Screen Neg NEGATIVE Urine Amphetamines Screen Pos NEGATIVE Urine Benzodiazepines Screen Neg NEGATIVE Urine Cocaine Screen Neg NEGATIVE Urine Cannabinoids Screen Pos NEGATIVE Influenza Type A Antigen Negative Negative Influenza Type B Antigen Negative Negative SARS-CoV-2 Antigen (Rapid) Negative NEGATIVE Troponin I High Sensitivity 15 </=54 ng/L Test 07/08/24 12:03 Range/Units White Blood Count 7.1 4.4-10.8 10^3/uL Red Blood Count 4.14 L 4.5-5.90 10^6/uL Hemoglobin 12.8 L 13.5-17.5 g/dL Hematocrit 36.3 L 41.0-53.0 % Mean Corpuscular Volume 87.7 80.0-100.0 fL Mean Corpuscular Hemoglobin 30.9 28.0-32.0 pg Mean Corpuscular Hemoglobin Concent 35.3 32.0-36.0 g/dL Red Cell Distribution Width 14.8 H 11.8-14.3 % Platelet Count 274 140-450 10^3/uL Mean Platelet Volume 7.1 6.9-10.8 fL Neutrophils (%) (Auto) 59.2 37.0-80.0 % Lymphocytes (%) (Auto) 28.7 10.0-50.0 % Monocytes (%) (Auto) 8.5 0.0-12.0 % Eosinophils (%) (Auto) 2.9 0.0-7.0 % Basophils (%) (Auto) 0.7 0.0-2.0 % Neutrophils # (Auto) 4.2 1.6-8.6 10 ^3/uL Lymphocytes # (Auto) 2.0 0.4-5.4 10 ^3/uL Monocytes # (Auto) 0.6 0-1.3 10 ^3/uL Eosinophils # (Auto) 0.2 0-0.8 10 ^3/uL Basophils # (Auto) 0 0-0.2 10 ^3/uL Nucleated Red Blood Cells 0.1 % Sodium Level 140 136-145 mmol/L Potassium Level 4.7 3.5-5.1 mmol/L Chloride Level 108 H 98-107 mmol/L Carbon Dioxide Level 23 20-31 mmol/L Anion Gap 9 5-15 Blood Urea Nitrogen 49 H 9-23 mg/dL Creatinine 4.61 H 0.700-1.30 mg/dL Glomerular Filtration Rate Calc 14 >90 mL/min BUN/Creatinine Ratio 10.6 10.0-20.0 Serum Glucose 185 H 74-106 mg/dL Hemoglobin A1c 8.1 H <5.7 % A1C Calcium Level 9.3 8.7-10.4 mg/dL Troponin I High Sensitivity 16 </=54 ng/L Triglycerides Level 176 H < 150 mg/dL Cholesterol Level 274 H < 200 mg/dL LDL Cholesterol 188 H < 100 mg/dL HDL Cholesterol 50 40-59 mg/dL Plan/Recommendation IMP: 1) ESRD on HD M/W/F 2) CP 3) HTN 4) hx of DM type 2 5) hx of seizures REC: -BMP -HD tentatively on 07/11 -Strict I&Os -Blood pressure control -Will continue to follow. Plan discussed with: Patient NOLAN DOSS AMIRA Jul 09, 2024 14:07
[2024-07-09 16:59] VITALS: BP 146/89; PULSE 97; RESP 20; TEMP 98.7; O2SAT 96
[2024-07-09] MEDS: ACETAMINOPHEN 325 MG TAB PO PRN (18:45)
--- NOTE | 2024-07-09 23:38 | DVHSR ---
APPROVED REPORT EXAM: Two-dimensional and M-mode echocardiogram with Doppler and color Doppler. Blood Pressure: 128/76 mmHg INDICATION cp RISK FACTORS Height: 5'11, Weight: 198 DIMENSIONS LVDd4.2 (3.8-5.7cm)LA (2D)5.1 (1.9-4.0cm)Aortic Root3.6 (2.0-3.7cm) LVDs3.7 (2.5-4.0cm)LA (MM) (1.9-4.0cm)Aortic Cusp Exc2.0 (1.5-2.0cm) EF (%) 43.0 (55-70%)Rt. Atrium3.1 (1.9-4.0cm)Asc. Aorta3.4 cm IVSd1.4 (0.7-1.1cm)RV (D)3.3 (1.8-2.4cm) PWd1.3 (0.7-1.1cm) Mitral Valve MitralMitral Stenosis A wavem/sMV Peak GR.142mmHg E/A ratio0.02D MVAcm2 Aortic Valve Aortic ValveAortic Stenosis V10.68m/Jose David Mean GR.2mmHg V20.77m/Jose David Peak GR.2mmHg LVOT Diameter2.3 (1.8-2.4cm)Doppler AVA3.67cm2 Pulmonic Valve V20.55m/s Tricuspid Valve TR Velocity2.17m/s [id number] Conclusion MODERATELY DILATED LV GLOBAL LV HYPOKINESIS LV EF IS 40% AND IS REDUCED MODERATELY DILATED LA NORMAL RV FUNCTION AND SIZE NORMAL VALVES NO EFFUSION
[2024-07-10 10:34] VITALS: BP 147/97; PULSE 108; RESP 18; O2SAT 98
[2024-07-10 11:07] LABS: Anion Gap 11 (5-15); Carbon Dioxide 20 mmol/L (20-31); Potassium 4.7 mmol/L (3.5-5.1); Sodium 138 mmol/L (136-145)
[2024-07-10 11:08] LABS: Calcium 9.7 mg/dL (8.7-10.4)
[2024-07-10 11:13] LABS: BUN/Creatinine Ratio 10.1 (10.0-20.0); Blood Urea Nitrogen 47 mg/dL (9-23); Chloride 107 mmol/L (98-107); Glucose 204 mg/dL (74-106)
--- NOTE | 2024-07-10 14:47 | DVHPN2 ---
Progress Note Date Seen: Jul 10, 2024 Medical Necessity Reason Pt with a Central, PICC or Fol: No Subjective Patient reports: No new complaints Objective vital signs Vital Sign Date Time Temp Pulse Resp B/P (MAP) Pulse Ox O2 Delivery O2 Flow Rate FiO2 07/10/24 10:34 108 18 147/97 (114) 98 07/10/24 08:00 Room Air* 0 21 07/09/24 16:59 98.7 98.7 Total Intake and Output 07/09/24 07/09/24 07/10/24 15:00 23:00 07:00 Intake Total 300 ml 400 ml Output Total 500 ml Balance 300 ml -100 ml medications Current Medications Medications Dose Ordered Sig/Misty Route Start Time Stop Time Status Last Admin Dose Admin Diagnostic Test (Pha) 1 strip ACHS 07/08/24 17:00 07/10/24 11:42 1 STRIP Insulin Human Regular ACHS SC 07/08/24 17:00 07/10/24 11:42 4 UNITS Dextrose 50 ml UD PRN IV 07/08/24 14:45 Acetaminophen/ Hydrocodone Bitart 1 tab Q4HP PRN PO 07/08/24 14:45 07/10/24 12:39 1 TAB Ondansetron HCl 4 mg Q4HP PRN IV 07/08/24 14:45 Acetaminophen 650 mg Q6HP PRN PO 07/08/24 14:45 07/09/24 18:45 650 MG Nitroglycerin 0.4 mg Q5MINP PRN SL 07/08/24 14:45 Morphine Sulfate 2 mg Q30M PRN IV 07/08/24 14:45 Amlodipine Besylate 5 mg DAILY PO 07/09/24 10:00 07/10/24 10:24 5 MG Apixaban 5 mg DAILY PO 07/09/24 10:00 07/10/24 10:23 5 MG Bumetanide 1 mg DAILY PO 07/09/24 10:00 07/10/24 10:23 1 MG Metoprolol Succinate 50 mg DAILY PO 07/09/24 10:00 07/10/24 10:24 50 MG Atorvastatin Calcium 40 mg HS PO 07/08/24 22:00 07/08/24 21:50 40 MG Levetiracetam 1,000 mg BID PO 07/08/24 22:00 07/10/24 10:23 1,000 MG Quetiapine Fumarate 50 mg HS PO 07/08/24 22:00 07/08/24 21:50 50 MG Pantoprazole Sodium 40 mg DAILY IV 07/08/24 15:30 07/10/24 10:24 40 MG Hydralazine HCl 10 mg Q6HP PRN IV 07/08/24 15:30 07/09/24 12:54 10 MG Examination Gen: Appears stated age, no acute distress Lungs: Bilateral air entry, no rales CVS: RRR, normal S1 and S2 Ext: No edema Neuro: Alert and oriented x 4 laboratory and microbiology Laboratory Tests 07/10/24 10:27 07/09/24 05:09 Test 07/10/24 10:27 Range/Units Serum Glucose 204 H 74-106 mg/dL Labs and/or images reviewed: Labs reviewed by me Problem List/Assessment/Plan Problem List/Assessment/Plan IMP: 1) ESRD on HD M/W/F 2) CP 3) HTN 4) hx of DM type 2 5) hx of seizures REC: -HD on 07/11 -Chemistry panel -Strict I&Os -Will continue to follow. Plan discussed with: Patient NOLAN DOSS AMIRA Jul 10, 2024 14:47
[2024-07-10 17:00] VITALS: BP 157/94; PULSE 76; RESP 16; TEMP 97.6; O2SAT 98
[2024-07-10 20:00] VITALS: RESP 16
[2024-07-10 21:00] VITALS: BP 141/86; PULSE 79; RESP 19; TEMP 97.9; O2SAT 96
--- NOTE | 2024-07-10 22:49 | DVHPN2 ---
Subjective The patient seen and examined at bedside. Still complain of shortness for breath. Reviewed: Care Plan, H&P, Labs, Medications, Previous Orders, Radiology Changes from previous H/P or p: No Changes General: Per HPI Cardiovascular: Chest Pain Respiratory: Shortness of breath Objective Vitals Vital Signs Date Time Temp Pulse Resp B/P (MAP) Pulse Ox O2 Delivery O2 Flow Rate FiO2 07/10/24 20:00 16 Room Air* 0 21 07/10/24 17:00 97.6 76 157/94 (115) 98 97.6 Intake/Output Intake and Output 07/10/24 07:00 Intake Total 700 ml Output Total 500 ml Balance 200 ml Intake Oral 700 ml Output Urine Total 500 ml # Voids 4 General Appearance: Alert, Oriented X3, Cooperative, No acute distress HEENT: Atraumatic, PERRLA, EOMI, Mucous membr. moist/pink Neck: Supple Cardiovascular: Regular rate, Normal S1, Normal S2, No murmurs, Gallops, Rubs Abdomen: Normal bowel sounds, Soft, No tenderness Neuro: Cranial nerves 3-12 NL Psych/Mental Status: Mental status NL Medications Current Medications Medications Dose Ordered Sig/Misty Route Start Time Stop Time Status Last Admin Dose Admin Diagnostic Test (Pha) 1 strip ACHS 07/08/24 17:00 07/10/24 21:34 1 STRIP Insulin Human Regular ACHS SC 07/08/24 17:00 07/10/24 17:11 4 UNITS Dextrose 50 ml UD PRN IV 07/08/24 14:45 Acetaminophen/ Hydrocodone Bitart 1 tab Q4HP PRN PO 07/08/24 14:45 07/10/24 21:33 1 TAB Ondansetron HCl 4 mg Q4HP PRN IV 07/08/24 14:45 Acetaminophen 650 mg Q6HP PRN PO 07/08/24 14:45 07/09/24 18:45 650 MG Nitroglycerin 0.4 mg Q5MINP PRN SL 07/08/24 14:45 Morphine Sulfate 2 mg Q30M PRN IV 07/08/24 14:45 Amlodipine Besylate 5 mg DAILY PO 07/09/24 10:00 07/10/24 10:24 5 MG Apixaban 5 mg DAILY PO 07/09/24 10:00 07/10/24 10:23 5 MG Bumetanide 1 mg DAILY PO 07/09/24 10:00 07/10/24 10:23 1 MG Metoprolol Succinate 50 mg DAILY PO 07/09/24 10:00 07/10/24 10:24 50 MG Atorvastatin Calcium 40 mg HS PO 07/08/24 22:00 07/10/24 21:29 40 MG Levetiracetam 1,000 mg BID PO 07/08/24 22:00 07/10/24 21:29 1,000 MG Quetiapine Fumarate 50 mg HS PO 07/08/24 22:00 07/10/24 21:30 50 MG Pantoprazole Sodium 40 mg DAILY IV 07/08/24 15:30 07/10/24 10:24 40 MG Hydralazine HCl 10 mg Q6HP PRN IV 07/08/24 15:30 07/09/24 12:54 10 MG Laboratory Results Laboratory Tests 07/09/24 05:09 07/10/24 10:27 Chemistry Test 07/10/24 10:27 Calcium Level 9.7 mg/dL (8.7-10.4) Urinalysis Test 07/08/24 20:31 Urine Color Light-yellow (Yellow) Urine Clarity Clear (Clear) Urine pH 6.5 (5.0-9.0) Urine Specific [place] 1.019 (1.001-1.035) Urine Protein 3+ (Negative) H Urine Ketones Negative (Negative) Urine Blood 1+ /uL (Negative) H Urine Nitrite Negative (Negative) Urine Bilirubin Negative (Negative) Urine Urobilinogen Normal mg/dL (Negative) Urine Leukocyte Esterase Negative /uL (Negative) Urine RBC 4 /hpf (0 - 3) Urine Microscopic WBC < 1 /HPF (0-3) Urine Squamous Epithelial Cells None seen /hpf (<5) Urine Bacteria None seen /hpf (None Seen) Urine Creatinine 80.38 mg/dL (30.0-125.0) Urine Sodium 71 mmol/L (40-220) Urine Glucose 3+ mg/dL (Normal) H Urine Total Protein 1150.9 mg/dL (1-14) H Assessment/Plan Assessment/Plan Chest pain Hypertensive urgency Acute on chronic renal failure on dialysis (M/W/F) History of hypertension Hyperlipidemia Diabetes type 2 Schizophrenia Seizure History of glaucoma Plan Continuing current management. Continuing with IV hydralazine. Continuing with DuoNeb. With nitroglycerin and Zofran. Continuing with morphine and [place] for pain control. Continuing with sliding scale insulin Appreciate Nephrology's input. continuing hemodialysis PUD prophylaxis-Protonix This medical document was created using an electronic medical record system with [employer] computerized dictation system. Although this document has been carefully reviewed, there may still be some phonetic and typographical errors. These areas are purely typographical due to imperfections of the software programs, and do not reflect any compromise in the patient's medical care. Plan discussed with: Patient My Orders Orders - PEGGY DIEZ MD Procedure Category Date Status Time * Cardiology Consult CONS 07/10/24 Transmitted 13:21 Date of Service: Jul 10, 2024 Billing Provider: PEGGY DIEZ MD Common Visit Codes: [id number] INP/OBS CARE(HIGH) PEGGY DIEZ MD Jul 10, 2024 22:49
[2024-07-11 05:00] VITALS: BP 106/65; PULSE 78; RESP 19; TEMP 97.2; O2SAT 98
[2024-07-11 07:59] LABS: Anion Gap 10 (5-15); Carbon Dioxide 20 mmol/L (20-31); Potassium 4.8 mmol/L (3.5-5.1); Sodium 137 mmol/L (136-145)
[2024-07-11 08:00] VITALS: BP 155/91; PULSE 81; RESP 18; TEMP 97.4; O2SAT 99
[2024-07-11 08:00] LABS: Calcium 9.6 mg/dL (8.7-10.4)
[2024-07-11 08:03] LABS: Chloride 107 mmol/L (98-107)
[2024-07-11 08:06] LABS: BUN/Creatinine Ratio 10.4 (10.0-20.0)
[2024-07-11 08:11] LABS: Blood Urea Nitrogen 50 mg/dL (9-23); Glucose 143 mg/dL (74-106)
[2024-07-11 09:00] VITALS: BP 155/91; PULSE 81; RESP 18; TEMP 97.4; O2SAT 99
--- NOTE | 2024-07-11 11:37 | DVHPN2 ---
Progress Note Date Seen: Jul 11, 2024 Medical Necessity Reason Pt with a Central, PICC or Fol: No Subjective Patient reports: Feels better Objective vital signs Vital Sign Date Time Temp Pulse Resp B/P (MAP) Pulse Ox O2 Delivery O2 Flow Rate FiO2 07/11/24 11:27 155/91 07/11/24 09:49 81 07/11/24 09:00 97.4 18 99 97.4 07/10/24 20:00 Room Air* 0 21 Total Intake and Output 07/10/24 07/10/24 07/11/24 15:00 23:00 07:00 Intake Total 400 ml Output Total 450 ml Balance -450 ml 400 ml medications Current Medications Medications Dose Ordered Sig/Misty Route Start Time Stop Time Status Last Admin Dose Admin Diagnostic Test (Pha) 1 strip ACHS 07/08/24 17:00 07/10/24 21:34 1 STRIP Insulin Human Regular ACHS SC 07/08/24 17:00 07/10/24 17:11 4 UNITS Dextrose 50 ml UD PRN IV 07/08/24 14:45 Acetaminophen/ Hydrocodone Bitart 1 tab Q4HP PRN PO 07/08/24 14:45 07/10/24 21:33 1 TAB Ondansetron HCl 4 mg Q4HP PRN IV 07/08/24 14:45 Acetaminophen 650 mg Q6HP PRN PO 07/08/24 14:45 07/09/24 18:45 650 MG Nitroglycerin 0.4 mg Q5MINP PRN SL 07/08/24 14:45 Morphine Sulfate 2 mg Q30M PRN IV 07/08/24 14:45 Amlodipine Besylate 5 mg DAILY PO 07/09/24 10:00 07/11/24 11:27 5 MG Apixaban 5 mg DAILY PO 07/09/24 10:00 07/11/24 09:48 5 MG Bumetanide 1 mg DAILY PO 07/09/24 10:00 07/11/24 09:48 1 MG Metoprolol Succinate 50 mg DAILY PO 07/09/24 10:00 07/11/24 09:49 50 MG Atorvastatin Calcium 40 mg HS PO 07/08/24 22:00 07/10/24 21:29 40 MG Levetiracetam 1,000 mg BID PO 07/08/24 22:00 07/11/24 09:49 1,000 MG Quetiapine Fumarate 50 mg HS PO 07/08/24 22:00 07/10/24 21:30 50 MG Pantoprazole Sodium 40 mg DAILY IV 07/08/24 15:30 07/10/24 10:24 40 MG Hydralazine HCl 10 mg Q6HP PRN IV 07/08/24 15:30 07/09/24 12:54 10 MG Examination: GENERAL:Normal, CVS:Normal, ABDOMEN:Normal laboratory and microbiology Laboratory Tests 07/11/24 06:21 07/09/24 05:09 Test 07/11/24 06:21 Range/Units Serum Glucose 143 H 74-106 mg/dL Problem List/Assessment/Plan Problem List/Assessment/Plan ESRD HTN chest pain seizure disorder diabetes Increase BP meds today electrolytes in acceptable range HD will be scheduled tomorrow cardiac w/u on going Plan discussed with: Patient SHAHID GARSIA MD Jul 11, 2024 11:37
--- NOTE | 2024-07-11 11:41 | DVHDS2 ---
Discharge Summary Date of Admission Jul 08, 2024 at 14:33 Date of Discharge: Jul 11, 2024 Admitting Diagnosis Chest pain Hypertensive urgency Acute on chronic renal failure on dialysis (M/W/F) History of hypertension Hyperlipidemia Diabetes type 2 Schizophrenia Seizure History of glaucoma Labs/Diagnostic Data: Laboratory Results Test 07/11/24 06:21 07/10/24 21:32 07/09/24 05:09 07/08/24 20:31 Sodium Level 137 mmol/L (136-145) Potassium Level 4.8 mmol/L (3.5-5.1) Chloride Level 107 mmol/L (98-107) Carbon Dioxide Level 20 mmol/L (20-31) Anion Gap 10 (5-15) Blood Urea Nitrogen 50 mg/dL (9-23) Creatinine 4.79 mg/dL (0.700-1.30) Glomerular Filtration Rate Calc 14 mL/min (>90) BUN/Creatinine Ratio 10.4 (10.0-20.0) Serum Glucose 143 mg/dL (74-106) Calcium Level 9.6 mg/dL (8.7-10.4) POC Glucose 127 mg/dl (70-106) White Blood Count 5.7 10^3/uL (4.4-10.8) Red Blood Count 3.66 10^6/uL (4.5-5.90) Hemoglobin 11.3 g/dL (13.5-17.5) Hematocrit 33.0 % (41.0-53.0) Mean Corpuscular Volume 90.2 fL (80.0-100.0) Mean Corpuscular Hemoglobin 30.9 pg (28.0-32.0) Mean Corpuscular Hemoglobin Concent 34.2 g/dL (32.0-36.0) Red Cell Distribution Width 14.4 % (11.8-14.3) Platelet Count 253 10^3/uL (140-450) Mean Platelet Volume 7.0 fL (6.9-10.8) Neutrophils (%) (Auto) 56.0 % (37.0-80.0) Lymphocytes (%) (Auto) 30.8 % (10.0-50.0) Monocytes (%) (Auto) 9.3 % (0.0-12.0) Eosinophils (%) (Auto) 3.2 % (0.0-7.0) Basophils (%) (Auto) 0.7 % (0.0-2.0) Neutrophils # (Auto) 3.2 10 ^3/uL (1.6-8.6) Lymphocytes # (Auto) 1.8 10 ^3/uL (0.4-5.4) Monocytes # (Auto) 0.5 10 ^3/uL (0-1.3) Eosinophils # (Auto) 0.2 10 ^3/uL (0-0.8) Basophils # (Auto) 0 10 ^3/uL (0-0.2) Nucleated Red Blood Cells 0.1 % Uric Acid 6.3 mg/dL (3.7-9.2) Total Bilirubin 0.3 mg/dL (0.2-1.0) Aspartate Amino Transferase (AST) 10 U/L (13-40) Alanine Aminotransferase (ALT) 12 U/L (7-40) Alkaline Phosphatase 104 U/L (46-116) Total Protein 5.9 g/dL (5.7-8.2) Albumin 3.4 g/dL (3.2-4.8) Thyroid Stimulating Hormone (TSH) 3.54 uIU/mL (0.55-4.78) Urine Color Light-yellow (Yellow) Urine Clarity Clear (Clear) Urine pH 6.5 (5.0-9.0) Urine Specific [place] 1.019 (1.001-1.035) Urine Protein 3+ (Negative) Urine Ketones Negative (Negative) Urine Blood 1+ /uL (Negative) Urine Nitrite Negative (Negative) Urine Bilirubin Negative (Negative) Urine Urobilinogen Normal mg/dL (Negative) Urine Leukocyte Esterase Negative /uL (Negative) Urine RBC 4 /hpf (0 - 3) Urine Microscopic WBC < 1 /HPF (0-3) Urine Squamous Epithelial Cells None seen /hpf (<5) Urine Bacteria None seen /hpf (None Seen) Urine Creatinine 80.38 mg/dL (30.0-125.0) Urine Sodium 71 mmol/L (40-220) Urine Glucose 3+ mg/dL (Normal) Urine Total Protein 1150.9 mg/dL (1-14) Urine Opiates Screen Neg (NEGATIVE) Urine Fentanyl Screen Neg (NEGATIVE) Urine Barbiturates Screen Neg (NEGATIVE) Urine Phencyclidine Screen Neg (NEGATIVE) Urine Amphetamines Screen Pos (NEGATIVE) Urine Benzodiazepines Screen Neg (NEGATIVE) Urine Cocaine Screen Neg (NEGATIVE) Urine Cannabinoids Screen Pos (NEGATIVE) Test 07/08/24 14:38 07/08/24 13:03 07/08/24 12:03 Influenza Type A Antigen Negative (Negative) Influenza Type B Antigen Negative (Negative) SARS-CoV-2 Antigen (Rapid) Negative (NEGATIVE) Troponin I High Sensitivity 15 ng/L (</=54) Hemoglobin A1c 8.1 % A1C (<5.7) Triglycerides Level 176 mg/dL (< 150) Cholesterol Level 274 mg/dL (< 200) LDL Cholesterol 188 mg/dL (< 100) HDL Cholesterol 50 mg/dL (40-59) Other Laboratory Tests 07/11/24 06:21 07/09/24 05:09 Brief Hx & Hospital Course: This is a 53 years old male with past medical history of hypertension, hyperlipidemia, diabetes type 2, atrial fibrillation, end-stage renal disease on hemodialysis Thursday, schizophrenia, seizure and glaucoma came to emergency department because severe body pain, shortness for breath, chest pain for three days. The patient said his pain is 10/10 constantly nagging him. The patient was admitted. Troponin level to set was negative. EKG showed no ST change. Patient received dialyzed in the hospital and shortness for breath and chest pain improved. The patient will be discharged home today. Follow up with primary care physician 1-2 weeks. Continuing hemodialysis per schedule as outpatient chair time. Activity as tolerated. Diet renal diet. Physical exam: HEENT: Normocephalic atraumatic pupils equal react to light and accommodation. Extraocular muscles intact, conjunctiva pink, oropharynx moist, no thrush, no exudate. Lymphatic: No lymphadenopathy Cardiovascular exam: S1, S2 was heard. No murmurs, rubs, gallops Lung: Clear on auscultation bilaterally, no wheeze, rale, rhonchi. GI: Abdominal soft, nondistended, nontenderness, positive bowel sounds. Extremity: No crepitus, cyanosis, edema. Pedal pulses present bilateral. Full range of motion. Skin: Normal turgor, no rash. Psych: Alert, oriented x3. Neurology: No focal deficits, cranial nerve II to XII grossly intact. This medical document was created using an electronic medical record system with [employer] computerized dictation system. Although this document has been carefully reviewed, there may still be some phonetic and typographical errors. These areas are purely typographical due to imperfections of the software programs, and do not reflect any compromise in the patient's medical care. Condition at Discharge: Stable Final Diagnosis/Problems List Chest pain due to fluid overload Hypertensive urgency Acute on chronic renal failure on dialysis (M/W/F) History of hypertension Hyperlipidemia Diabetes type 2 Schizophrenia Seizure History of glaucoma Discharge Disposition: Home Discharge Instruct/Medications Diet: Renal Activity: No Restrictions, As Tolerated Follow Up/Referral: PCP 1-2 weeks [employer] per schedule Medications: Resume home meds. Discharge Statement: "Patient was advised to return to the ER or call 911 if any headaches, dizziness, shortness of breath, chest pain, abdominal pain, bleeding, fevers, or worsening of medical condition. Patient was counseled about treatment plan, medications, possible side effects, patientverbalized understanding. All questions were answered to the best of my ability. This discharge took greater then 30 minutes in planning, reviewing documentation, counseling the patient, and discussing with other team members." ASSESSMENT ASSESSMENT Assessment chest pain fluid overload Date of Service: Jul 11, 2024 Billing Provider: PEGGY DIEZ MD Common Visit Codes: [id number] DISCH DAY >30min PEGGY DIEZ MD Jul 11, 2024 11:41
[2024-07-11 13:00] VITALS: BP 165/100; PULSE 83; RESP 16; TEMP 97.3; O2SAT 96
--- NOTE | 2024-07-11 13:31 | DVHINCON2 ---
Date Seen: Jul 11, 2024 Referring Physician MD Vandana Reason for Consultation Chest pain History of Present Illness This is a 53-year-old man who presented to the emergency room with a chief complaint of generalized body pain. At time of assessment, the patient was found to be uncooperative, somewhat aggressive, poor historian, but denying any active chest pain. Per records he presented with generalized body pain, chest pain, and shortness of breath for three days. He missed a hemodialysis treatment. A 12 lead electrocardiogram revealed a sinus tachycardia rhythm at 103 bpm. Serial troponin levels are negative. Follows-up with a primary pie filling mixer in [place]. Unable to retrieve further cardiac information given uncooperative behavior. Significant medical history includes paroxysmal atrial fibrillation on low-dose Eliquis, congestive heart failure, hypertension, insulin-dependent diabetes mellitus, end-stage renal disease on hemodialysis --, seizure disorder, and methamphetamine use. Past Medical History Past medical history reviewed. No other significant than mentioned above. Past Surgical History Dialysis access Family History: Patient reports no known family medical history. Family History Family history reviewed. Social History UDS positive for methamphetamines and cannabinoids. Allergies: Coded Allergies: Erythromycin (Verified Allergy, Unknown, 04/17/24) Penicillins (Verified Allergy, Unknown, 04/17/24) Home Meds Reported Medications Atorvastatin Calcium (Lipitor) 40 Mg Tab, 40 MG PO DAILY 06/07/24 Quetiapine Fumerate (QUETIAPINE FUMARATE) 50 Mg Tab, 1 TAB PO 06/07/24 Bumetanide (Bumetanide) 1 Mg Tab, 1 TAB PO DAILY 06/07/24 Amlodipine Besylate (Amlodipine Besylate) 5 Mg Tab, 1 TAB PO DAILY 06/07/24 Levetiracetam (Levetiracetam) 1,000 Mg Tab, 1 TAB PO BID 06/07/24 Insulin Lispro (Insulin Lispro Thai Kwi) 100 Unit/Ml Inj 06/07/24 Apixaban Base (ELIQUIS) 5 Mg Tab, PO 06/07/24 Olopatadine HCl (Olopatadine Hydrochloride) 0.1 % Melchor, 1 DROP LEFTEYE BID 06/07/24 Metoprolol Succinate (Metoprolol Succinate Er) 50 Mg Tab, 1 TAB PO DAILY 06/07/24 Home Meds Home medications reviewed. Review of Systems Constitutional: Generalized body pain Ears, Nose, & Throat: No symptom reported Eyes: No symptom reported Neurological: No symptoms reported Pulmonary/Respiratory: SOB Cardiovascular: Chest pain Gastrointestinal: No symptom reported Genitourinary: No symptom reported Musculoskeletal: No symptom reported Skin: No symptom reported Psychiatric: No symptom reported Endocrine: No symptom reported Hemotologic/Lymphatic: No symptom reported Vital Signs Vital Signs Date Time Temp Pulse Resp B/P (MAP) Pulse Ox O2 Delivery O2 Flow Rate FiO2 07/11/24 11:27 155/91 07/11/24 09:49 81 07/11/24 09:00 97.4 18 99 97.4 07/10/24 20:00 Room Air* 0 21 Physical Exam General Appearance: Uncooperative. Chronically ill. In no acute distress Head Exam: Normal inspection Neck Exam: Normal inspection. Non-tender. Normal alignment Pulmonary/Respiratory: Chest non-tender. Diminished bilateral breath sounds Cardiovascular/Chest: Regular rate and rhythm. Sinus rhythm. S1, S2. Peripheral Pulses: 2+ Radial (R). 2+ Radial (L). 2+ Pedal (R). 2+ Pedal (L) Abdominal Exam: Normal bowel sounds. Ankle Exam: Negative ankle edema Lower extremities: Negative lower extremity edema Neuro/Mental Status: A&O x4. Coherent Thoughts/Psych: Normal thought pattern. Uncooperative, aggressive, belligerent Appearance: In no acute distress Skin Exam: Normal inspection. Normal color. Warm. Dry Labs/Diagnostic Data Labs Test 07/11/24 06:21 07/10/24 21:32 07/09/24 05:09 07/08/24 20:31 Range/Units Sodium Level 137 136-145 mmol/L Potassium Level 4.8 3.5-5.1 mmol/L Chloride Level 107 98-107 mmol/L Carbon Dioxide Level 20 20-31 mmol/L Anion Gap 10 5-15 Blood Urea Nitrogen 50 H 9-23 mg/dL Creatinine 4.79 H 0.700-1.30 mg/dL Glomerular Filtration Rate Calc 14 >90 mL/min BUN/Creatinine Ratio 10.4 10.0-20.0 Serum Glucose 143 H 74-106 mg/dL Calcium Level 9.6 8.7-10.4 mg/dL POC Glucose 127 H 70-106 mg/dl White Blood Count 5.7 4.4-10.8 10^3/uL Red Blood Count 3.66 L 4.5-5.90 10^6/uL Hemoglobin 11.3 L 13.5-17.5 g/dL Hematocrit 33.0 L 41.0-53.0 % Mean Corpuscular Volume 90.2 80.0-100.0 fL Mean Corpuscular Hemoglobin 30.9 28.0-32.0 pg Mean Corpuscular Hemoglobin Concent 34.2 32.0-36.0 g/dL Red Cell Distribution Width 14.4 H 11.8-14.3 % Platelet Count 253 140-450 10^3/uL Mean Platelet Volume 7.0 6.9-10.8 fL Neutrophils (%) (Auto) 56.0 37.0-80.0 % Lymphocytes (%) (Auto) 30.8 10.0-50.0 % Monocytes (%) (Auto) 9.3 0.0-12.0 % Eosinophils (%) (Auto) 3.2 0.0-7.0 % Basophils (%) (Auto) 0.7 0.0-2.0 % Neutrophils # (Auto) 3.2 1.6-8.6 10 ^3/uL Lymphocytes # (Auto) 1.8 0.4-5.4 10 ^3/uL Monocytes # (Auto) 0.5 0-1.3 10 ^3/uL Eosinophils # (Auto) 0.2 0-0.8 10 ^3/uL Basophils # (Auto) 0 0-0.2 10 ^3/uL Nucleated Red Blood Cells 0.1 % Uric Acid 6.3 3.7-9.2 mg/dL Total Bilirubin 0.3 0.2-1.0 mg/dL Aspartate Amino Transferase (AST) 10 L 13-40 U/L Alanine Aminotransferase (ALT) 12 7-40 U/L Alkaline Phosphatase 104 46-116 U/L Total Protein 5.9 5.7-8.2 g/dL Albumin 3.4 3.2-4.8 g/dL Thyroid Stimulating Hormone (TSH) 3.54 0.55-4.78 uIU/mL Urine Color Light-yellow Yellow Urine Clarity Clear Clear Urine pH 6.5 5.0-9.0 Urine Specific [place] 1.019 1.001-1.035 Urine Protein 3+ H Negative Urine Ketones Negative Negative Urine Blood 1+ H Negative /uL Urine Nitrite Negative Negative Urine Bilirubin Negative Negative Urine Urobilinogen Normal Negative mg/dL Urine Leukocyte Esterase Negative Negative /uL Urine RBC 4 0 - 3 /hpf Urine Microscopic WBC < 1 0-3 /HPF Urine Squamous Epithelial Cells None seen <5 /hpf Urine Bacteria None seen None Seen /hpf Urine Creatinine 80.38 30.0-125.0 mg/dL Urine Sodium 71 40-220 mmol/L Urine Glucose 3+ H Normal mg/dL Urine Total Protein 1150.9 H 1-14 mg/dL Urine Opiates Screen Neg NEGATIVE Urine Fentanyl Screen Neg NEGATIVE Urine Barbiturates Screen Neg NEGATIVE Urine Phencyclidine Screen Neg NEGATIVE Urine Amphetamines Screen Pos NEGATIVE Urine Benzodiazepines Screen Neg NEGATIVE Urine Cocaine Screen Neg NEGATIVE Urine Cannabinoids Screen Pos NEGATIVE Test 07/08/24 14:38 07/08/24 13:03 07/08/24 12:03 Range/Units Influenza Type A Antigen Negative Negative Influenza Type B Antigen Negative Negative SARS-CoV-2 Antigen (Rapid) Negative NEGATIVE Troponin I High Sensitivity 15 </=54 ng/L Hemoglobin A1c 8.1 H <5.7 % A1C Triglycerides Level 176 H < 150 mg/dL Cholesterol Level 274 H < 200 mg/dL LDL Cholesterol 188 H < 100 mg/dL HDL Cholesterol 50 40-59 mg/dL Assessment Chronic compensated HFrEF with LVEF of 40% Dilated cardiomyopathy, ?drug induced Paroxysmal atrial fibrillation, now NSR (on low-dose Eliquis) Hypertension Dyslipidemia Insulin-dependent diabetes mellitus Anemia in chronic disease ESRD on HD Medical compliance Polysubstance abuse Plan/Recommendation (Dr. Santos) Transthoracic echocardiogram revealed LVEF of 40% with moderately dilated and global left ventricular hypokinesis. The patient can benefit from an outpatient stress test if deemed necessary. He is currently uncooperative and denying any active cardiac symptoms. Follow-up with primary pie filling mixer in [place] as scheduled. There is no further cardiac workup indicated at this time. Thank you for allowing us to participate in this patient's care. Please call if you have any questions or concerns. This medical document was created using an electronic medical record system with voice recognition software and computerized dictation system. Although this document has been carefully reviewed, there might still be some phonetic and typographical errors. Occasional wrong-word or ``sound-alike substitutions may have occurred due to the inherent limitations of voice recognition software. These areas are purely typographical due to imperfections of the software programs and do not reflect any compromise in the patient's medical care. Jeremy nunez read the chart carefully and recognize, using context, where these substitutions have occurred. Plan discussed with: Patient, Other NYHA Physical activity limitations: Class2(Slight)fatigue,sob (palpitatns, angina w activityv) Date of Service: Jul 11, 2024 Billing Provider: [facility] Common Codes: 43411-[id number] INP/OBS CARE (High) D[facility] Jul 11, 2024 13:31
[2024-07-11 13:37] VITALS: TEMP 36.3
== END 2024-07-11 15:45 | disposition home or self-care (01) | DRG 425 ==
LOC: EDBD 11:07 → ER 11:07 → EDUNIT# 11:07 → OVERFLOW 14:33 → TELE-CENTR 22:39
PROVIDERS: ADMIT Internal Medicine; ATTEND Internal Medicine
DX: E87.70 Fluid overload, unspecified (principal); N17.9 Acute kidney failure, unspecified; I13.2 Hypertensive heart and chronic kidney disease with heart failure and with stage 5 chronic kidney disease, or end stage renal disease; I42.0 Dilated cardiomyopathy; D63.1 Anemia in chronic kidney disease; G40.909 Epilepsy, unspecified, not intractable, without status epilepticus; I48.0 Paroxysmal atrial fibrillation; N18.6 End stage renal disease; E11.22 Type 2 diabetes mellitus with diabetic chronic kidney disease; E78.5 Hyperlipidemia, unspecified; I50.22 Chronic systolic (congestive) heart failure; F20.9 Schizophrenia, unspecified; Z99.2 Dependence on renal dialysis; F19.10 Other psychoactive substance abuse, uncomplicated; Z20.822 Contact with and (suspected) exposure to COVID-19; I16.0 Hypertensive urgency; Z79.4 Long term (current) use of insulin; Z88.1 Allergy status to other antibiotic agents; Z88.0 Allergy status to penicillin
CPT/HCPCS: 36415; 71045; 76775; 80048; 80053; 80061; 80307; 81001; 82570; 82962; 83036; 84156; 84300; 84443; 84484; 84550; 85025; 87426; 87804; 93005; 93306; G0378; J1815; J2405; J2470

== ENCOUNTER 2024-07-27 18:35 | Inpatient (IN) | payer MEDICAID ==
[~2024-07-27] VITALS: Ht 172.7 cm; Wt 87.7 kg
[~2024-07-27 18:35] MED LIST changes: -ATOR-507; -LEVE750T3 PO
--- NOTE | 2024-07-27 18:51 | ED.PDOC ---
HPI Comments 53 year old male presents to the ED via EMS with a chief complaint of chest pain onset today (07/27/24) around 1 hour ago. Per EMS, patient was at Dialysis, in [facility] waiting to begin treatment when he began experiencing chest pain, a witnessed seizure by dialysis staff. Upon EMS arrival, patient was experiencing LT sided chest pain described as a burning sensation, shortness of breath and was placed on 2L O2. Patient states he is currently experiencing chest pain, dizziness that began about 1 hour ago and for the past 2 days he has been experiencing abdominal pain, nausea, vomiting, nasal congestion, eye pain, dysuria with burning sensation. PMHx CHF, a-fib, HTN, HLD, DM, ESRD, seizures. Denies hematuria, diarrhea, constipation, fevers, chills. No other symptoms or modifying factors present at this time. Chief Complaint: Chest Pain Time Seen by MD: 18:40 Primary Care Provider: unknown Reviewed Notes: Medications, Allergies Allergies: Coded Allergies: Erythromycin (Verified Allergy, Unknown, 04/17/24) Penicillins (Verified Allergy, Unknown, 04/17/24) Home Meds Reported Medications Atorvastatin Calcium (Lipitor) 40 Mg Tab, 40 MG PO DAILY 06/07/24 Quetiapine Fumerate (QUETIAPINE FUMARATE) 50 Mg Tab, 1 TAB PO 06/07/24 Bumetanide (Bumetanide) 1 Mg Tab, 1 TAB PO DAILY 06/07/24 Amlodipine Besylate (Amlodipine Besylate) 5 Mg Tab, 1 TAB PO DAILY 06/07/24 Levetiracetam (Levetiracetam) 1,000 Mg Tab, 1 TAB PO BID 06/07/24 Insulin Lispro (Insulin Lispro Thai Kwi) 100 Unit/Ml Inj 06/07/24 Apixaban Base (ELIQUIS) 5 Mg Tab, PO 06/07/24 Olopatadine HCl (Olopatadine Hydrochloride) 0.1 % Melchor, 1 DROP LEFTEYE BID 06/07/24 Metoprolol Succinate (Metoprolol Succinate Er) 50 Mg Tab, 1 TAB PO DAILY 06/07/24 Information Source: Patient, Emergency Med Personnel Mode of Arrival: EMS Severity: Moderate Timing: Hours Duration: Since onset Prehospital treatment: 12 Lead EKG, Oxygen (2L) Location: Chest (L) Quality: Burning Onset: At Rest Cardiac Risk Factors: Hyperlipidemia, HTN, Diabetes PE Risk Factors: None History of: None Modifying Factors: Nothing Associated Signs and Symptoms: SOB, Abdominal Pain, N/V Vital Signs Vital Signs Date Time Temp Pulse Resp B/P (MAP) Pulse Ox O2 Delivery O2 Flow Rate FiO2 07/27/24 21:32 86 07/27/24 18:55 97.5 19 182/100 (127) 96 97.5 Physical Exam General: Awake, alert and oriented. No acute distress. Skin: Skin in warm, dry and intact. Appropriate color for ethnicity. HEENT: The head is normocephalic and atraumatic. Conjunctivae are clear without exudates or hemorrhage. Sclera is non-icteric. EOM are intact. No signs of nystagmus. Eyelids are normal in appearance without swelling or lesions. Oral mucosa is pink and moist Neck: The neck is supple with normal range of motion. No JVD. Cardiac: Heart rate and rhythm are normal. No murmurs, gallops, or rubs are auscultated. Respiratory: No signs of respiratory distress. Lung sounds are clear in all lobes bilaterally without rales, rhonchi, or wheezes. Abdominal: Abdomen is soft, non-tender without distention. Bowel sounds are present and normoactive in all four quadrants. Extremities: Upper and lower extremities are atraumatic in appearance without deformity or edema. Neurological: The patient is awake, alert and oriented to person, place, and time with normal speech. Speech is clear. There is no facial asymmetry. Psychiatric: Appropriate mood and affect. Good judgement and insight. Review of Systems: REVIEW OF SYSTEMS: No fever, no chills, or fatigue HEENT: No sore throat, no earache, no congestion, no neck pain. Cardiac: No chest pain. No palpitations. Lungs: No shortness of breath, no cough. GI: No nausea, no vomiting, no diarrhea, no constipation, no abdominal pain : No dysuria, frequency, or urgency. No hematuria. Musculoskeletal: No joint pain , no joint swelling, no extremity edema. Skin: No rash, no itching. Neuro: No headache, no dizziness, no weakness Past Medical History PAST MEDICAL HISTORY: AFIB, CHF, DM, ESRD, High Lipids, HTN, Schizophrenia Family History Family History: Reviewed,noncontributory to illness, Unknown Social History Smoker: Non-Smoker Alcohol: Denies ETOH Use Drugs: Unknown Lives In: Home EKG EKG : Pulse Rate (adult): 84 Cardiac Rhythm: NSR Comments No STEMI Was a procedure done? Was a procedure done?: No CP Differential Dx Differential Diagnosis: Other Other Differential Diagnosis Differential diagnoses considered include acute ischemic coronary syndrome, aortic dissection, cardiac tamponade, mediastinitis, pulmonary embolus, pneumothorax, tension pneumothorax, esophageal rupture, coronary artery vasospasm, myocarditis, pericarditis, pneumonia, pulmonary edema, esophageal te ar, pancreatitis, aortic stenosis, dilated cardiomyopathy, hypertrophic cardiomyopathy, mitral valve prolapse, malignancy, pleuritis, pneumomediastinum, primary pulmonary hypertension, cholecystitis, esophageal spasm, esophagus, gastritis, GERD, peptic ulcer disease, costochondritis, fibromyalgia, rib fracture, herpes zoster, radicular syndromes, thoracic outlet syndrome, somatization. X-Ray, Labs, Meds, VS Vital Signs Date Time Temp Pulse Resp B/P (MAP) Pulse Ox O2 Delivery O2 Flow Rate FiO2 07/27/24 21:32 86 07/27/24 20:00 89 07/27/24 19:24 91 07/27/24 18:55 97.5 96 19 182/100 (127) 96 97.5 07/27/24 18:51 84 07/27/24 18:44 98.1 87 16 162/100 (120) 100 98.1 07/27/24 18:39 84 Lab Test 07/27/24 20:29 07/27/24 19:30 Range/Units Troponin I High Sensitivity 16 15 </=54 ng/L White Blood Count 10.5 4.4-10.8 10^3/uL Red Blood Count 4.16 L 4.5-5.90 10^6/uL Hemoglobin 12.5 L 13.5-17.5 g/dL Hematocrit 35.8 L 41.0-53.0 % Mean Corpuscular Volume 86.0 80.0-100.0 fL Mean Corpuscular Hemoglobin 30.0 28.0-32.0 pg Mean Corpuscular Hemoglobin Concent 34.8 32.0-36.0 g/dL Red Cell Distribution Width 13.9 11.8-14.3 % Platelet Count 304 140-450 10^3/uL Mean Platelet Volume 7.4 6.9-10.8 fL Neutrophils (%) (Auto) 72.0 37.0-80.0 % Lymphocytes (%) (Auto) 18.5 10.0-50.0 % Monocytes (%) (Auto) 8.3 0.0-12.0 % Eosinophils (%) (Auto) 0.9 0.0-7.0 % Basophils (%) (Auto) 0.3 0.0-2.0 % Neutrophils # (Auto) 7.6 1.6-8.6 10 ^3/uL Lymphocytes # (Auto) 1.9 0.4-5.4 10 ^3/uL Monocytes # (Auto) 0.9 0-1.3 10 ^3/uL Eosinophils # (Auto) 0.1 0-0.8 10 ^3/uL Basophils # (Auto) 0 0-0.2 10 ^3/uL Nucleated Red Blood Cells 0.1 % Sodium Level 141 136-145 mmol/L Potassium Level 3.9 3.5-5.1 mmol/L Chloride Level 104 98-107 mmol/L Carbon Dioxide Level 26 20-31 mmol/L Anion Gap 11 5-15 Blood Urea Nitrogen 34 H 9-23 mg/dL Creatinine 4.93 H 0.700-1.30 mg/dL Glomerular Filtration Rate Calc 13 >90 mL/min BUN/Creatinine Ratio 6.9 L 10.0-20.0 Serum Glucose 161 H 74-106 mg/dL Lactic Acid Level 0.9 0.4-2.0 mmol/L Calcium Level 8.9 8.7-10.4 mg/dL Total Bilirubin 0.3 0.2-1.0 mg/dL Aspartate Amino Transferase (AST) 10 L 13-40 U/L Alanine Aminotransferase (ALT) 13 7-40 U/L Alkaline Phosphatase 107 46-116 U/L B-Type Natriuretic Peptide 541.83 0-100 pg/mL Total Protein 5.9 5.7-8.2 g/dL Albumin 3.7 3.2-4.8 g/dL Lipase 43 12-53 U/L Current Medications Medications (Trade) Dose Ordered Sig/Misty Route Start Time Stop Time Status Last Admin Aspirin 324 mg ONCE ONCE PO 07/27/24 19:00 07/27/24 19:01 DC 07/27/24 20:41 Acetaminophen (Tylenol Tablet) 650 mg ONCE ONCE PO 07/27/24 19:00 07/27/24 19:01 DC 07/27/24 20:41 Ondansetron HCl (Zofran) 4 mg ONCE ONCE IV 07/27/24 19:00 07/27/24 19:01 DC 07/27/24 20:57 Morphine Sulfate 1 mg ONCE ONCE IV 07/27/24 21:15 07/27/24 21:16 DC 07/27/24 22:06 IMPRESSION: 1. No acute cardiopulmonary disease. ATED BY: JE CORONA MD DICTATED DATE/TIME: 07/27/241922 SIGNED BY: JE CORONA MD SIGNED DATE/TIME: 07/27/241922 CC: Images Reviewed?: Images reviewed and evaluated by me (Independent interpretation of chest x-ray: No acute disease) Time of 1ST Reevaluation: 19:10 Reevaluation 1ST: Unchanged Patient Education/Counseling: Need For Follow Up Family Education/Counseling: No Family Present Departure 1 Departure Time of Disposition: 21:01 Impression: Primary Impression: Chest pain Additional Impression: End stage renal disease on dialysis Disposition: ADMITTED INPATIENT Condition: Stable Comments 53-year-old male with a history of end-stage renal disease on dialysis presented to the emergency department with chest pain. He missed dialysis today. We will admit for further evaluation, treatment, monitoring and dialysis treatment. Extensive evaluation was performed in attempt to identify or rule out: (See differential diagnosis section) The following tests were ordered, and results were reviewed by me and discussed with patient: (See diagnostic results section) The following test were independently interpreted by me: EKG, chest x-ray I reviewed and agreed with the following test results read by other providers: Chest x-ray I reviewed the following notes from the pt's past medical encounters: Encounter for for chest pain. Ejection fraction at that time was 40%. Dilated left atrium Additional information was gathered from interviewing the following independent historians: EMS personnel Discussion of management or test interpretation with external physician/other qualified health home health care social worker: N/A Addressed an acute or chronic illness that poses a threat to life or bodily function: Chest pain, end-stage renal disease requiring dialysis Decision regarding hospitalization or escalation of hospital level of care: Risk and benefits of admission for further treatment of patient's condition was considered. Due to patient's current clinical condition, high risk of decline and poor outcome if discharged and need for further inpatient management and monitoring, patient will be admitted to the hospital. Drug therapy requiring intensive monitoring for toxicity: N/A Parenteral controlled substances: IV morphine Decision regarding elective major surgery with identified patient or procedure risk factors: N/A Decision regarding emergency major surgery: N/A Decision not to resuscitate or to de-escalate care because of poor prognosis: N/A Diagnosis or treatment significantly limited by social determinants of health: N/A Critical Care Note Critical Care Time?: No Stability Stability form required: No Heart Score Heart Score: Heart Score Response (Comments) Value History Slightly Suspicious 0 EKG Normal 0 Age 45-64 1 Risk Factors >3 or Hx ASHD 2 Troponin Normal limit 0 Total 3 I personally scribed for MANOHAR KNIGHT MD ([email or web address]) on 07/27/24 at 18:51. Electronically submitted by Meena Pedersen ([email or web address]). I personally scribed for MANOHAR KNIGHT MD ([email or web address]) on 07/27/24 at 19:30. Electronically submitted by Meena Pedersen ([email or web address]). MANOHAR KNIGHT MD July 27, 2024 18:51
--- NOTE | 2024-07-27 19:25 | DVH ---
CHEST RADIOGRAPH Indication: cp Technique: Single frontal view of the chest was obtained Comparison: XY CHEST PORTABLE on DOS: 07/08/24, XY CHEST PORTABLE on DOS: 06/07/24 FINDINGS: Lines and Tubes: There is a right sided hemodialysis catheter with tip in the right atrium. Lungs: No focal consolidation. Pleura: No effusion. No pneumothorax. Cardiomediastinal contours: Unremarkable Bones: No acute osseous abnormality. IMPRESSION: 1. No acute cardiopulmonary disease.
[2024-07-27 20:03] VITALS: PULSE 101; RESP 15; O2SAT 96
[2024-07-27 20:07] LABS: Basophils # (auto) 0 10 ^3/uL (0-0.2); Basophils % (auto) 0.3 % (0.0-2.0); Eosinophils # (auto) 0.1 10 ^3/uL (0-0.8); Eosinophils % (auto) 0.9 % (0.0-7.0); Hematocrit 35.8 % (41.0-53.0); Hemoglobin 12.5 g/dL (13.5-17.5); Lymphocytes # (auto) 1.9 10 ^3/uL (0.4-5.4); Lymphocytes % (auto) 18.5 % (10.0-50.0); Mean Corpuscular Hgb Conc. 34.8 g/dL (32.0-36.0); Monocytes # (auto) 0.9 10 ^3/uL (0-1.3); Monocytes % (auto) 8.3 % (0.0-12.0); Neutrophils # (auto) 7.6 10 ^3/uL (1.6-8.6); Nucleated Red Blood Cells % 0.1 %; Platelet Count (auto) 304 10^3/uL (140-450); Red Blood Cells 4.16 10^6/uL (4.5-5.90); Red Cell Distribution Width 13.9 % (11.8-14.3); White Blood Cell 10.5 10^3/uL (4.4-10.8)
[2024-07-27 20:23] LABS: Alanine Aminotransferase 13 U/L (7-40); Albumin 3.7 g/dL (3.2-4.8); Alkaline Phosphatase 107 U/L (46-116); Anion Gap 11 (5-15); BUN/Creatinine Ratio 6.9 (10.0-20.0); Calcium 8.9 mg/dL (8.7-10.4); Carbon Dioxide 26 mmol/L (20-31); Chloride 104 mmol/L (98-107); Lipase 43 U/L (12-53); Potassium 3.9 mmol/L (3.5-5.1); Sodium 141 mmol/L (136-145); Total Protein 5.9 g/dL (5.7-8.2)
[2024-07-27 20:24] LABS: Aspartate Aminotransferase 10 U/L (13-40); Bilirubin, Total 0.3 mg/dL (0.2-1.0); Blood Urea Nitrogen 34 mg/dL (9-23); Glucose 161 mg/dL (74-106)
[2024-07-27] MEDS: ASPirin 81 mg TAB PO ONE (20:41)
[2024-07-27] MEDS: ACETAMINOPHEN 325 MG TAB PO ONE (20:41)
[2024-07-27] MEDS: ONDANSETRON HCL 4 MG/2 ML VIAL IV ONE (20:57)
[2024-07-27] MEDS: MORPHINE SULFATE INJ 2 MG/ml SYRG IV ONE (22:06)
[2024-07-27] MEDS ORDERED: DEXTROSE (50%) 50ML SYRG IV PRN (22:15)
[2024-07-27] MEDS ORDERED: ACETAMINOPHEN 325 MG TAB PO PRN (22:15)
[2024-07-27] MEDS ORDERED: MORPHINE SULFATE INJ 2 MG/ml SYRG IV PRN (22:15)
[2024-07-27] MEDS ORDERED: NITROGLYCERIN 0.4 MG SL TAB SL PRN (22:15)
--- NOTE | 2024-07-27 23:36 | DVHHP2 ---
History of Present Illness Reason for Visit: chest pain History of Present Illness 53-year-old male with a complex medical history including atrial fibrillation, hypertension, HLD, DM, ESRD on hemodialysis, schizophrenia, and seizure disorder, presented to the ED via EMS after experiencing acute-onset chest pain approximately 1 hour prior to arrival. The event occurred while he was in the dialysis clinic lobby awaiting treatment. EMS witnessed a seizure during evaluation and placed the patient on O2 at 2L. The chest pain was described as a burning sensation associated with shortness of breath and dizziness. Patient also reported recent onset of abdominal pain, nausea, vomiting, nasal congestion, eye pain, and dysuria with burning. He denied hematuria, diarrhea, constipation, fevers, or chills. Past Medical History: Paroxysmal atrial fibrillation HFrEF (EF 40%) Dilated cardiomyopathy (?drug-induced) Hypertension Dyslipidemia Type 2 diabetes mellitus (insulin-dependent) ESRD on hemodialysis Seizure disorder Schizophrenia History of glaucoma Medical noncompliance Polysubstance abuse Allergies: Erythromycin Penicillin Social History Smoker: Non-Smoker Alcohol: Denies ETOH Use Drugs: Unknown Lives In: Home Review of Systems Allergies: Coded Allergies: Erythromycin (Verified Allergy, Unknown, 04/17/24) Penicillins (Verified Allergy, Unknown, 04/17/24) Medications Current Medications Medications Dose Ordered Sig/Misty Route Start Time Stop Time Status Last Admin Dose Admin Acetaminophen 650 mg Q6HP PRN PO 07/27/24 22:15 Acetaminophen/ Hydrocodone Bitart 1 tab Q4HP PRN PO 07/27/24 22:15 Nitroglycerin 0.4 mg Q5MINP PRN SL 07/27/24 22:15 Morphine Sulfate 2 mg Q30M PRN IV 07/27/24 22:15 Apixaban 5 mg BID PO 07/28/24 10:00 Amlodipine Besylate 5 mg DAILY PO 07/28/24 10:00 Metoprolol Succinate 50 mg DAILY PO 07/28/24 10:00 Diagnostic Test (Pha) 1 strip ACHS 07/28/24 07:00 Insulin Human Regular ACHS SC 07/28/24 07:00 Dextrose 50 ml UD PRN IV 07/27/24 22:15 Hydralazine HCl 10 mg Q6HR PO 07/28/24 00:00 UNV Exam Vital Signs Vital Signs Date Time Temp Pulse Resp B/P (MAP) Pulse Ox O2 Delivery O2 Flow Rate FiO2 07/27/24 22:06 99 16 163/98 07/27/24 18:55 97.5 96 97.5 Exam General: Alert, in mild distress due to chest discomfort. HEENT: PERRLA Neck: No JVD, no cervical lymphadenopathy. CV: Irregularly irregular rhythm, no murmurs, rubs or gallops. Resp: Lungs clear to auscultation bilaterally, no accessory muscle use. GI: Soft, non-distended, mild tenderness to palpation in lower quadrants, no rebound or guarding. : No CVA tenderness. Reports dysuria. Neuro: Alert and oriented x3, no focal deficits noted. Skin: No rashes or lesions. Psych: Affect appropriate; history of schizophrenia, currently stable. Labs/Xrays Labs Test 07/27/24 22:21 07/27/24 19:30 Range/Units Troponin I High Sensitivity 16 </=54 ng/L White Blood Count 10.5 4.4-10.8 10^3/uL Red Blood Count 4.16 L 4.5-5.90 10^6/uL Hemoglobin 12.5 L 13.5-17.5 g/dL Hematocrit 35.8 L 41.0-53.0 % Mean Corpuscular Volume 86.0 80.0-100.0 fL Mean Corpuscular Hemoglobin 30.0 28.0-32.0 pg Mean Corpuscular Hemoglobin Concent 34.8 32.0-36.0 g/dL Red Cell Distribution Width 13.9 11.8-14.3 % Platelet Count 304 140-450 10^3/uL Mean Platelet Volume 7.4 6.9-10.8 fL Neutrophils (%) (Auto) 72.0 37.0-80.0 % Lymphocytes (%) (Auto) 18.5 10.0-50.0 % Monocytes (%) (Auto) 8.3 0.0-12.0 % Eosinophils (%) (Auto) 0.9 0.0-7.0 % Basophils (%) (Auto) 0.3 0.0-2.0 % Neutrophils # (Auto) 7.6 1.6-8.6 10 ^3/uL Lymphocytes # (Auto) 1.9 0.4-5.4 10 ^3/uL Monocytes # (Auto) 0.9 0-1.3 10 ^3/uL Eosinophils # (Auto) 0.1 0-0.8 10 ^3/uL Basophils # (Auto) 0 0-0.2 10 ^3/uL Nucleated Red Blood Cells 0.1 % Sodium Level 141 136-145 mmol/L Potassium Level 3.9 3.5-5.1 mmol/L Chloride Level 104 98-107 mmol/L Carbon Dioxide Level 26 20-31 mmol/L Anion Gap 11 5-15 Blood Urea Nitrogen 34 H 9-23 mg/dL Creatinine 4.93 H 0.700-1.30 mg/dL Glomerular Filtration Rate Calc 13 >90 mL/min BUN/Creatinine Ratio 6.9 L 10.0-20.0 Serum Glucose 161 H 74-106 mg/dL Lactic Acid Level 0.9 0.4-2.0 mmol/L Calcium Level 8.9 8.7-10.4 mg/dL Total Bilirubin 0.3 0.2-1.0 mg/dL Aspartate Amino Transferase (AST) 10 L 13-40 U/L Alanine Aminotransferase (ALT) 13 7-40 U/L Alkaline Phosphatase 107 46-116 U/L B-Type Natriuretic Peptide 541.83 0-100 pg/mL Total Protein 5.9 5.7-8.2 g/dL Albumin 3.7 3.2-4.8 g/dL Lipase 43 12-53 U/L Assessment/Plan Assessment/Plan #Acute respiratory failure resolved #Seizure breakthrough #Hypertensive urgency #Chest pain #Uncompensated HFrEF with LVEF of 40% #Dilated cardiomyopathy, ?drug induced #Paroxysmal atrial fibrillation #Dyslipidemia #Insulin-dependent diabetes mellitus #Anemia in chronic disease #ESRD on HD #Medical non compliance #Polysubstance abuse #Hyperlipidemia #Schizophrenia #History of glaucoma Admit Telemetry Renal diet Nephrology consult: need of dialysis Apixaban 5 mg BID Levetiracetam 1000 mg BID Amlodipine 5 g daily Hydralazine 10 mg PO Metoprolol 50 mg PO ISS Patient was pending stress test as outpatient Case discussed with Dr Arshad Full code Plan discussed with: Patient, Other My Orders Orders - BERTRAM LARKIN RESIDENT Procedure Category Date Status Time Admit ADMIT 07/27/24 Transmitted 22:05 Code Status CODE 07/27/24 Transmitted 22:05 Review Orders With YOLY 07/27/24 In Process Adm. 22:05 Consistent DIET 07/28/24 Transmitted Carb(Ccho)Diabetes Breakfast Acetaminophen Tablet PHA 07/27/24 In Process (Tylenol Tablet) 22:15 Notify Md Of Changes YOLY 07/27/24 In Process From Base 22:05 Advance Directive YOLY 07/27/24 In Process 22:05 Patient Condition ORDERS 07/27/24 Transmitted 22:05 Allergies YOLY 07/27/24 In Process 22:05 Hydrocodone-Acet PHA 07/27/24 In Process 5/325mg Tab ([place] 22:15 Nitroglycerin PHA 07/27/24 In Process Sublingual (Ntrostat 22:15 Morphine Sulfate PHA 07/27/24 In Process Injection 22:15 Oxygen By Nasal RT 07/27/24 Transmitted Cannula 22:05 Stat Ekg For Chest YOLY 07/27/24 In Process Pain 22:05 Notify Md Of Changes YOLY 07/27/24 In Process From Base 22:05 Dragline Mechanic For YOLY 07/27/24 In Process 24 Hours 22:05 Emergency Dysrhythmia YOLY 07/27/24 In Process Protocol 22:05 Rhythm Strips Once YOLY 07/27/24 In Process Every Shift 22:05 Apixaban (Eliquis) PHA 07/28/24 In Process 10:00 Metoprolol Xl PHA 07/28/24 In Process Succinate (Toprol Xl) 10:00 Glucose Blood PHA 07/28/24 In Process (Accu-Chek Comfort 07:00 Insulin R (Human) PHA 07/28/24 In Process (Insulin R) 07:00 Dextrose 50% Syringe PHA 07/27/24 In Process 22:15 Amlodipine Tablet PHA 07/28/24 In Process (Norvasc Tablet) 10:00 Hydralazine Hcl PHA 07/28/24 Logged Tablet (Apresoline 00:00 Date of Service: July 27, 2024 Billing Provider: LINN ARSHAD MD Common Visit Codes: 89789-PEENIYH INP/OBS CARE (HIGH) Secondary Visit Codes: 89243-HNPSLAFH CARE PLAN 30 MINUTES BERTRAM LARKIN July 27, 2024 23:36
[2024-07-28] MEDS: hydrALAZINE HCL 10 MG TAB PO SCH (00:14)
[2024-07-28] MEDS: HYDROcodone-ACET 5/325MG TAB PO PRN (02:33)
[2024-07-28] MEDS ORDERED: ONDANSETRON HCL 4 MG/2 ML VIAL IV PRN (03:00)
[2024-07-28 03:37] LABS: Urine Bacteria FEW /hpf (None Seen); Urine Blood 1+ /uL (Negative); Urine Clarity Clear (Clear); Urine Color Light-Yellow (Yellow); Urine Protein, UAD 3+ (Negative); Urine Specific Gravity 1.021 (1.001-1.035); Urine Squamous Epithelial Cell None Seen /hpf (<5); Urine Urobilinogen Normal (Negative); Urine WBC 1 /HPF (0-3)
[2024-07-28 05:55] LABS: Basophils # (auto) 0 10 ^3/uL (0-0.2); Basophils % (auto) 0.2 % (0.0-2.0); Eosinophils # (auto) 0.1 10 ^3/uL (0-0.8); Eosinophils % (auto) 0.9 % (0.0-7.0); Hematocrit 35.9 % (41.0-53.0); Hemoglobin 12.1 g/dL (13.5-17.5); Lymphocytes # (auto) 1.8 10 ^3/uL (0.4-5.4); Lymphocytes % (auto) 12.6 % (10.0-50.0); Mean Corpuscular Hemoglobin 29.1 pg (28.0-32.0); Mean Corpuscular Hgb Conc. 33.6 g/dL (32.0-36.0); Mean Corpuscular Volume 86.7 fL (80.0-100.0); Monocytes # (auto) 1.5 10 ^3/uL (0-1.3); Monocytes % (auto) 10.8 % (0.0-12.0); Neutrophils # (auto) 10.6 10 ^3/uL (1.6-8.6); Neutrophils % (auto) 75.5 % (37.0-80.0); Platelet Count (auto) 292 10^3/uL (140-450); Red Blood Cells 4.14 10^6/uL (4.5-5.90); Red Cell Distribution Width 14.2 % (11.8-14.3); White Blood Cell 14.1 10^3/uL (4.4-10.8)
[2024-07-28 06:11] LABS: Albumin 3.7 g/dL (3.2-4.8); Alkaline Phosphatase 107 U/L (46-116); Anion Gap 11 (5-15); BUN/Creatinine Ratio 6.7 (10.0-20.0); Calcium 9.4 mg/dL (8.7-10.4); Carbon Dioxide 24 mmol/L (20-31); Chloride 105 mmol/L (98-107); Potassium 3.7 mmol/L (3.5-5.1); Sodium 140 mmol/L (136-145); Total Protein 6.1 g/dL (5.7-8.2)
[2024-07-28] MEDS: InsuLIN REG 1unit/0.01ml Soln (100units/ml) SC SCH (06:34)
[2024-07-28 06:35] LABS: Alanine Aminotransferase < 9 U/L (7-40); Aspartate Aminotransferase 11 U/L (13-40); Bilirubin, Total 0.3 mg/dL (0.2-1.0); Blood Urea Nitrogen 32 mg/dL (9-23); Glucose 119 mg/dL (74-106)
[2024-07-28] MEDS: ACCU-CHEK COMFORT CURVE STRIP VI SCH (06:35)
--- NOTE | 2024-07-28 06:41 | DVH ---
EXAM: CT HEAD WITHOUT CONTRAST INDICATION: AMS TECHNIQUE: CT of the head without intravenous contrast. Radiation Dose Information: CT Dose: CTDI volume is 25 mGy. Dose-length product is 250 mGy*cm The dose indicators for CT are the volume Computed Tomography (CT) Dose Index (CTDIvol) and the Dose Length Product (DLP), and are measured in units of mGy and mGy-cm, respectively. These indicators are not patient dose, but values generated from the CT scanner acquisition factors. The report includes radiation exposure data for exposures received during this examination. COMPARISON: CT HEAD WITHOUT CONTRAST on DOS: 06/08/24 FINDINGS: There is no evidence of acute intracranial hemorrhage, extra-axial collection, mass effect, midline s hift, herniation or hydrocephalus. The ventricles, sulci and cisterns are age appropriate. The bruno-white differentiation is intact. Patchy periventricular and subcortical white matter hypoattenuation is nonspecific but may be related to small vessel ischemic disease. The visualized paranasal sinuses and mastoid air cells are clear. The surrounding soft tissues and osseous structures are unremarkable. IMPRESSION: No acute intracranial abnormality.
[2024-07-28 08:39] LABS: Amphetamine Screen, Urine Pos (NEGATIVE); Cannabinoid Screen, Urine Pos (NEGATIVE); Opiate Scree,Urine Neg (NEGATIVE)
[2024-07-28] MEDS: PANTOPRAZOLE 40 MG TAB PO ONE (08:44)
[2024-07-28] MEDS: NIFEdipine ER 30 MG TAB PO SCH (08:47)
[2024-07-28 08:50] LABS: Barbiturate Scree,Urine Neg (NEGATIVE); Benzodiazephine Screen, Urine Neg (NEGATIVE); Cocaine Screen, Urine Neg (NEGATIVE); Phencyclidine Screen, Urine Neg (NEGATIVE)
[2024-07-28 08:55] VITALS: PULSE 91; RESP 15; O2SAT 96
[2024-07-28 09:29] LABS: Creatinine, Urine 106.68 mg/dL (30.0-125.0)
--- NOTE | 2024-07-28 09:30 | ECG ---
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
--- NOTE | 2024-07-28 09:30 | ECG ---
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
[2024-07-28 09:32] LABS: Urine Protein/Creatinine Ratio 13.94
--- NOTE | 2024-07-28 09:33 | DVHCONRES ---
Date Seen: July 28, 2024 Resident Creating Document: JOSE JACOBO History of Present Illness This is a 53-year-old male patient with PMHx ESRD on hemodialysis for the past 6 months M/W/F with a high-risk Nephrology, AFib on Eliquis, diabetes mellitus type 2 for the past 25 years, history of seizures on Keppra, HFrEF 40%, hypertension, schizophrenia and polysubstance abuse who was BIBA for the chief complaint of chest pain and seizure-like episode which he experienced earlier 07/27 while he was waiting in the lobby in his Hemodialysis Clinic. Patient experienced midsternal chest pain which was rubbing in nature, nonradiating, associated with nausea and therefore lied down on the bench when he was knocked out and head seizure-like activity. EMS was called and the patient was transferred here. Patient reports retro-orbital headache bilaterally and reports stress in his life. Patient reports making urine and being compliant to seizure medications He was recently admitted in his facility 07/11/2024 for missed hemodialysis and generalized weakness. On arrival to the ER, patient was hypotensive, but on room air. Head CT was unremarkable. Chest x-ray unremarkable. FENA 1.9%. Urine protein 13 g per day. Past medical history:ESRD on hemodialysis for the past 6 months M/W/F with a high-risk Nephrology, AFib on Eliquis, diabetes mellitus type 2 for the past 25 years, history of seizures on Keppra, HFrEF 40%, hypertension, schizophrenia and polysubstance abuse Home medications: Keppra 750 mg daily, metoprolol, nifedipine, Eliquis, insulin Patient seen and examined at the bedside. Reports severe headache bilaterally retro orbital. Family History: Patient reports no known family medical history. Allergies: Coded Allergies: Erythromycin (Verified Allergy, Unknown, 04/17/24) Penicillins (Verified Allergy, Unknown, 04/17/24) Home Meds Reported Medications Atorvastatin Calcium (Lipitor) 40 Mg Tab, 40 MG PO DAILY 06/07/24 Quetiapine Fumerate (QUETIAPINE FUMARATE) 50 Mg Tab, 1 TAB PO 06/07/24 Bumetanide (Bumetanide) 1 Mg Tab, 1 TAB PO DAILY 06/07/24 Amlodipine Besylate (Amlodipine Besylate) 5 Mg Tab, 1 TAB PO DAILY 06/07/24 Levetiracetam (Levetiracetam) 1,000 Mg Tab, 1 TAB PO BID 06/07/24 Insulin Lispro (Insulin Lispro Thai Kwi) 100 Unit/Ml Inj 06/07/24 Apixaban Base (ELIQUIS) 5 Mg Tab, PO 06/07/24 Olopatadine HCl (Olopatadine Hydrochloride) 0.1 % Melchor, 1 DROP LEFTEYE BID 06/07/24 Metoprolol Succinate (Metoprolol Succinate Er) 50 Mg Tab, 1 TAB PO DAILY 06/07/24 Current Medications Current Medications Medications (Trade) Dose Ordered Sig/Misty Route PRN Reason Start Time Stop Time Status Last Admin Acetaminophen (Tylenol Tablet) 650 mg Q6HP PRN PO PAIN SCALE 1-3 OR TEMP>100.4 07/27/24 22:15 Acetaminophen/ Hydrocodone Bitart ([place] 5/325MG Tab) 1 tab Q4HP PRN PO MODERATE PAIN (4-6 PAIN SCALE) 07/27/24 22:15 07/28/24 02:33 Nitroglycerin (Ntrostat Sublingual) 0.4 mg Q5MINP PRN SL FOR CHEST PAIN 07/27/24 22:15 Morphine Sulfate 2 mg Q30M PRN IV FOR CHEST PAIN 07/27/24 22:15 Heparin Sodium (Porcine) 5,000 units Q12HR SC 07/28/24 10:00 07/27/24 22:44 DC Apixaban (Eliquis) 5 mg BID PO 07/28/24 10:00 Amlodipine Besylate (Norvasc Tablet) 5 mg DAILY PO 07/28/24 10:00 07/28/24 07:02 DC Metoprolol Succinate (Toprol Xl) 50 mg DAILY PO 07/28/24 10:00 Diagnostic Test (Pha) (Accu-Chek Comfort Curve T) 1 strip ACHS 07/28/24 07:00 07/28/24 06:35 Insulin Human Regular (InsuLIN R) ACHS SC 07/28/24 07:00 Dextrose 50 ml UD PRN IV Blood Sugar LESS THAN 60 07/27/24 22:15 Hydralazine HCl (Apresoline Tablet) 10 mg Q6HR PO 07/28/24 00:00 07/28/24 08:20 DC 07/28/24 06:34 Ondansetron HCl (Zofran) 4 mg Q6HPRN PRN IV NAUSEA / VOMITING 07/28/24 03:00 Levetiracetam (Keppra Tablet) 1,000 mg BID PO 07/28/24 10:00 Nifedipine (Procardia Xl (Time-Release)) 60 mg DAILY PO 07/28/24 07:00 07/28/24 08:47 Hydralazine HCl (Apresoline Tablet) 25 mg Q8HR PO 07/28/24 14:00 Quetiapine Fumarate (SEROquel TABLET) 50 mg HS PO 07/28/24 22:00 Pantoprazole Sodium (Protonix Tablet) 40 mg DAILY@0600 PO 07/29/24 06:00 Insulin Glargine (Lantus) 20 units QAM SC 07/29/24 07:00 Vital Signs Vital Signs Date Time Temp Pulse Resp B/P (MAP) Pulse Ox O2 Delivery O2 Flow Rate FiO2 07/28/24 08:55 91 15 96 Room Air* 0 21 07/28/24 08:47 174/96 07/28/24 08:00 98.0 98.0 Physical Exam Patient lying in bed, reports headache, photophobia General: Well-built, afebrile, mucosae are moist Cardiovascular: Regular S1 and S2. No murmurs, gallops or rubs. No JVD elevation. No pedal edema Respiratory: Normal B/L air entry on room air. Clear lung sounds on auscultation Abdomen: Soft, tender nondistended, normoactive bowel sounds, no rebound tenderness, no organomegaly, no masses Genitourinary: Deferred MSK/skin: Mobilizes 4 limbs. Skin is dry and warm Neurological: No motor, no sensitive deficits, normal speech. Pupils are isocoric and reactive. Psych/Mental Status: A/Ox3 Labs/Diagnostic Data Labs Test 07/28/24 06:08 07/28/24 05:23 07/28/24 02:34 07/27/24 22:21 Range/Units POC Glucose 118 H 70-106 mg/dl White Blood Count 14.1 #H 4.4-10.8 10^3/uL Red Blood Count 4.14 L 4.5-5.90 10^6/uL Hemoglobin 12.1 L 13.5-17.5 g/dL Hematocrit 35.9 L 41.0-53.0 % Mean Corpuscular Volume 86.7 80.0-100.0 fL Mean Corpuscular Hemoglobin 29.1 28.0-32.0 pg Mean Corpuscular Hemoglobin Concent 33.6 32.0-36.0 g/dL Red Cell Distribution Width 14.2 11.8-14.3 % Platelet Count 292 140-450 10^3/uL Mean Platelet Volume 7.1 6.9-10.8 fL Neutrophils (%) (Auto) 75.5 37.0-80.0 % Lymphocytes (%) (Auto) 12.6 10.0-50.0 % Monocytes (%) (Auto) 10.8 0.0-12.0 % Eosinophils (%) (Auto) 0.9 0.0-7.0 % Basophils (%) (Auto) 0.2 0.0-2.0 % Neutrophils # (Auto) 10.6 H 1.6-8.6 10 ^3/uL Lymphocytes # (Auto) 1.8 0.4-5.4 10 ^3/uL Monocytes # (Auto) 1.5 H 0-1.3 10 ^3/uL Eosinophils # (Auto) 0.1 0-0.8 10 ^3/uL Basophils # (Auto) 0 0-0.2 10 ^3/uL Nucleated Red Blood Cells 0.0 % Sodium Level 140 136-145 mmol/L Potassium Level 3.7 3.5-5.1 mmol/L Chloride Level 105 98-107 mmol/L Carbon Dioxide Level 24 20-31 mmol/L Anion Gap 11 5-15 Blood Urea Nitrogen 32 H 9-23 mg/dL Creatinine 4.78 H 0.700-1.30 mg/dL Glomerular Filtration Rate Calc 14 >90 mL/min BUN/Creatinine Ratio 6.7 L 10.0-20.0 Serum Glucose 119 H 74-106 mg/dL Calcium Level 9.4 8.7-10.4 mg/dL Phosphorus Level 4.2 2.4-5.1 mg/dL Total Bilirubin 0.3 0.2-1.0 mg/dL Aspartate Amino Transferase (AST) 11 L 13-40 U/L Alanine Aminotransferase (ALT) < 9 7-40 U/L Alkaline Phosphatase 107 46-116 U/L Total Protein 6.1 5.7-8.2 g/dL Albumin 3.7 3.2-4.8 g/dL Urine Color Light-yellow Yellow Urine Clarity Clear Clear Urine pH 7.0 5.0-9.0 Urine Specific [place] 1.021 1.001-1.035 Urine Protein 3+ H Negative Urine Ketones Negative Negative Urine Blood 1+ H Negative /uL Urine Nitrite Negative Negative Urine Bilirubin Negative Negative Urine Urobilinogen Normal Negative mg/dL Urine Leukocyte Esterase Negative Negative /uL Urine RBC 2 0 - 3 /hpf Urine Microscopic WBC 1 0-3 /HPF Urine Squamous Epithelial Cells None seen <5 /hpf Urine Bacteria Few H None Seen /hpf Urine Sodium 59 40-220 mmol/L Urine Glucose 4+ H Normal mg/dL Urine Opiates Screen Neg NEGATIVE Urine Fentanyl Screen Neg NEGATIVE Urine Barbiturates Screen Neg NEGATIVE Urine Phencyclidine Screen Neg NEGATIVE Urine Amphetamines Screen Pos NEGATIVE Urine Benzodiazepines Screen Neg NEGATIVE Urine Cocaine Screen Neg NEGATIVE Urine Cannabinoids Screen Pos NEGATIVE Troponin I High Sensitivity 16 </=54 ng/L Test 07/27/24 19:30 Range/Units Lactic Acid Level 0.9 0.4-2.0 mmol/L B-Type Natriuretic Peptide 541.83 0-100 pg/mL Lipase 43 12-53 U/L Assessment ESRD on hemodialysis Thursday/Thursday/Thursday Hypertensive crisis Diabetic nephropathy Hypertensive nephrosclerosis Acute seizure episodes Probable Sepsis, source unknown Paroxysmal atrial fibrillation Amphetamine use dependence Vitamin-D deficiency Renal ultrasound 07/08/2024 showed no hydronephrosis. Distended bladder Echocardiogram 07/09/2024 showed LVEF 40%. Global LV hypokinesis. Head CT unremarkable chest x-ray unremarkable Plan: Patient refused hemodialysis today given nausea and vomiting. Hemodialysis tentatively scheduled for 07/29 Rule out infection, follow up on blood culture, rule out tunneled catheter as the source of infection Continue antiseizure medication Keppra Continue antihypertensives Continue Eliquis 5 mg b.i.d. Plan discussed with patient in which all questions have been answered Case discussed with Dr. Fernandes Addendum Patient seen and examined, plan discussed with resident. Agree with above, we will follow closely HD tomorrow blood cx r/o cath infection Plan discussed with: Patient JOSE JACOBO RESIDENT July 28, 2024 09:33 SHAYY FERNANDES MD July 28, 2024 19:49
[2024-07-28 09:35] LABS: Protein, Urine 1487.4 mg/dL (1-14)
[2024-07-28] MEDS: APIXABAN 5 MG TAB PO SCH (09:53)
[2024-07-28] MEDS: levETIRAcetam 500 MG TAB PO SCH (09:53)
[2024-07-28] MEDS: INSULIN LANTUS (GLARGINE) 1 /0.01ml (100units/ml) SC ONE (09:54)
[2024-07-28] MEDS ORDERED: amLODIPine BESYLATE 5 MG TAB PO SCH (10:00)
[2024-07-28] MEDS ORDERED: HEPARIN SODIUM (PORCINE) 5000 UNITS/ML 1ML VIAL SC SCH (10:00)
[2024-07-28] MEDS ORDERED: METOPROLOL SUCCINATE XL 50 MG TAB PO SCH (10:00)
[2024-07-28] MEDS: cloNIDine HCL 0.1 MG TAB PO SCH (10:45)
--- NOTE | 2024-07-28 10:51 | ECG ---
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
[2024-07-28] MEDS: MORPHINE SULFATE INJ 2 MG/ml SYRG IV ONE (11:10)
[2024-07-28] MEDS: hydrALAZINE HCL 25 MG TAB PO SCH (14:13)
[2024-07-28 17:42] VITALS: BP 108/80; PULSE 72; RESP 18; TEMP 97.8; O2SAT 98
[2024-07-28 17:47] VITALS: BP 108/80; PULSE 72; RESP 18; TEMP 97.8; O2SAT 98
[2024-07-28 18:30] LABS: COVID19 ANTIGEN SOFIA FIA NEGATIVE (NEGATIVE); Rapid Influenza A Negative (Negative); Rapid Influenza B Negative (Negative)
--- NOTE | 2024-07-28 18:30 | DVHPNRES ---
Progress Note Date Seen: July 28, 2024 Resident Creating Document: JOSEF NUNN RESIDENT Medical Necessity Reason Pt with a Central, PICC or Fol: No Subjective Review of Systems Patient seen and examined at bedside. Came to the hospital for seizure episode, uncontrolled hypertension, missed dialysis. No chest pain at the time of evaluation. Eyes: No Pain, No Vision change, No Conjunctivae inflammation, No Eyelid inflammation, No Other, No Redness ENT: No Ear pain, No Ear discharge, No Nose pain, No Nose discharge, No Nose congestion, No Mouth pain, No Mouth swelling, No Throat pain, No Throat swelling, No Other Cardiovascular: No Chest Pain, No Palpitations, No Orthopnea, No Paroxysmal Noc. Dyspnea, No Edema, No Lt Headedness, No Other Respiratory: No Cough, No Dry, No Shortness of breath, No SOB with excertion, No Wheezing, No Hemoptysis, No Pleuritic Pain, No Sputum, No Other Gastrointestinal: No Nausea, No Vomiting, No Abdominal Pain, No Diarrhea, No Constipation, No Melena, No Hematochezia, No Other Genitourinary: No Dysuria, No Frequency, No Incontinence, No Hematuria, No Retention, No Other Musculoskeletal: No other, No neck pain, No shoulder pain, No arm pain, No back pain, No hand pain, No leg pain, No foot pain Skin: No Rash, No Lesions, No Jaundice, No Bruising, No Other Objective vital signs Vital Sign Date Time Temp Pulse Resp B/P (MAP) Pulse Ox O2 Delivery O2 Flow Rate FiO2 07/28/24 16:14 108 13 124/76 (92) 96 07/28/24 08:55 Room Air* 0 21 07/28/24 08:00 98.0 98.0 medications Current Medications Medications Dose Ordered Sig/Misty Route Start Time Stop Time Status Last Admin Dose Admin Acetaminophen 650 mg Q6HP PRN PO 07/27/24 22:15 Acetaminophen/ Hydrocodone Bitart 1 tab Q4HP PRN PO 07/27/24 22:15 07/28/24 09:53 1 TAB Nitroglycerin 0.4 mg Q5MINP PRN SL 07/27/24 22:15 Morphine Sulfate 2 mg Q30M PRN IV 07/27/24 22:15 Apixaban 5 mg BID PO 07/28/24 10:00 07/28/24 09:53 5 MG Diagnostic Test (Pha) 1 strip ACHS 07/28/24 07:00 07/28/24 17:17 1 STRIP Insulin Human Regular ACHS SC 07/28/24 07:00 07/28/24 17:21 4 UNITS Dextrose 50 ml UD PRN IV 07/27/24 22:15 Ondansetron HCl 4 mg Q6HPRN PRN IV 07/28/24 03:00 Levetiracetam 1,000 mg BID PO 07/28/24 10:00 07/28/24 09:53 1,000 MG Hydralazine HCl 25 mg Q8HR PO 07/28/24 14:00 07/28/24 14:13 25 MG Quetiapine Fumarate 50 mg HS PO 07/28/24 22:00 Pantoprazole Sodium 40 mg DAILY@0600 PO 07/29/24 06:00 Insulin Glargine 20 units QAM SC 07/29/24 07:00 Clonidine HCl 0.1 mg BID PO 07/28/24 10:00 07/28/24 12:21 0.1 MG Carvedilol 12.5 mg Q12HR PO 07/29/24 10:00 UNV Examination General Appearance: Cooperative. Well developed. Well nourished. NAD Head Exam: Normal inspection Neck Exam: Normal inspection. Non-tender. Normal alignment Pulmonary/Respiratory: Chest non-tender. Clear bilateral breath sounds Cardiovascular/Chest: Regular rate and rhythm. No murmurs. No JVD. Peripheral Pulses: 2+ Radial (R). 2+ Radial (L). 2+ Pedal (R). 2+ Pedal (L) Abdominal Exam: Normal bowel sounds. Soft. Nontender. No hepatospenomegaly. No masses Ankle Exam: Negative ankle edema Lower extremities: Negative lower extremity edema Neuro/Mental Status: A&O x4. Coherent Thoughts/Psych: Normal thought pattern. Appropriate mood and affect. Good judgement and insight Appearance: In no acute distress Skin Exam: Normal inspection. Normal color. Warm. 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 daily. -hypertension: Clonidine 0.1 mg p.o. b.i.d., we will discontinue nifedipine, we will start Coreg, continue hydralazine 25 mg p.o. t.i.d. -reduced Eliquis dose from 5 mg p.o. b.i.d. to, renal dose 2.5 mg p.o. b.i.d. -reviewed echocardiogram: Ejection fraction 40% -nephrology consultation for hemodialysis -continue Keppra 500 mg p.o. b.i.d. for seizure -continue home medication for schizophrenia -vitamin-D 31962 IU once weekly -diabetes mellitus type 2: Insulin Lantus 20 units once daily, mild insulin sliding scale, diabetic diet -counseled on drug cessation, UDS positive for meth -PUD prophylaxis with Protonix -DVT prophylaxis with Eliquis Goals of care discussed greater than 22 minutes, full code status. Plan discussed with Dr Anthony Plan discussed with: Patient, Other (RN) My Orders My Orders Orders - JOSEF NUNN Procedure Category Date Status Time Hydralazine Hcl PHA 07/28/24 In Process Tablet (Apresoline 14:00 Quetiapine Fumarate PHA 07/28/24 In Process Tablet (Seroquel Tab 22:00 Pantoprazole Tablet PHA 07/29/24 In Process (Protonix Tablet) 06:00 Insulin Lantus PHA 07/29/24 In Process (Glargine) (Lantus) 07:00 Clonidine Hcl Tablet PHA 07/28/24 In Process (Catapres Tablet) 10:00 Carvedilol Tablet PHA 07/29/24 Logged (Coreg Tablet) 10:00 Date of Service: July 28, 2024 Billing Provider: FABRICIO ANTHONY MD Common Visit Codes: [id number] INP/OBS CARE(HIGH) JOSEF NUNN July 28, 2024 18:30 FABRICIO ANTHONY MD July 30, 2024 15:36
[2024-07-28 20:00] VITALS: PULSE 111
[2024-07-28] MEDS: ATORVASTATIN 20 MG TAB PO SCH (21:59)
[2024-07-28] MEDS: QUEtiapine FUMARATE 25 MG TAB PO SCH (22:00)
[2024-07-28] MEDS: APIXABAN 2.5 MG TAB PO SCH (22:00)
[2024-07-29] VITALS (7 sets, daily range): BP systolic 101–146; BP diastolic 62–89; PULSE 97–116; RESP 16–20; TEMP 98.3–99.4; O2SAT 93–98
[2024-07-29] MEDS: INSULIN LANTUS (GLARGINE) 1 /0.01ml (100units/ml) SC SCH (06:10)
[2024-07-29] MEDS: PANTOPRAZOLE 40 MG TAB PO SCH (06:12)
[2024-07-29] MEDS: CARVEDILOL 12.5 MG TAB PO SCH (10:00)
--- NOTE | 2024-07-29 10:52 | DVHPN2 ---
Progress Note Date Seen: July 29, 2024 Resident Creating Document: JOSE JACOBO RESIDENT Medical Necessity Reason Pt with a Central, PICC or Fol: No Subjective Review of Systems This is a 53-year-old male patient with PMHx ESRD on hemodialysis for the past 6 months M/W/F with a high-risk Nephrology, AFib on Eliquis, diabetes mellitus type 2 for the past 25 years, history of seizures on Keppra, HFrEF 40%, hypertension, schizophrenia and polysubstance abuse who was BIBA for the chief complaint of chest pain and seizure-like episode which he experienced earlier 07/27 while he was waiting in the lobby in his Hemodialysis Clinic. Patient experienced midsternal chest pain which was rubbing in nature, nonradiating, associated with nausea and therefore lied down on the bench when he was knocked out and head seizure-like activity. EMS was called and the patient was transferred here. Patient reports retro-orbital headache bilaterally and reports stress in his life. Patient reports making urine and being compliant to seizure medications He was recently admitted in his facility 07/11/2024 for missed hemodialysis and generalized weakness. On arrival to the ER, patient was hypotensive, but on room air. Head CT was unremarkable. Chest x-ray unremarkable. FENA 1.9%. Urine protein 13 g per day. Past medical history:ESRD on hemodialysis for the past 6 months M/W/F with a high-risk Nephrology, AFib on Eliquis, diabetes mellitus type 2 for the past 25 years, history of seizures on Keppra, HFrEF 40%, hypertension, schizophrenia and polysubstance abuse Home medications: Keppra 750 mg daily, metoprolol, nifedipine, Eliquis, insulin 07/28 - Patient seen and examined at the bedside. Reports severe headache bilaterally retro orbital. 07/29 - patient seen and examined at the bedside. Has a abdominal tenderness. On room air. Objective vital signs Vital Sign Date Time Temp Pulse Resp B/P (MAP) Pulse Ox O2 Delivery O2 Flow Rate FiO2 07/29/24 10:00 98 110/66 07/29/24 08:40 98.7 16 96 98.7 07/28/24 20:00 Room Air* 0 21 medications Current Medications Medications Dose Ordered Sig/Misty Route Start Time Stop Time Status Last Admin Dose Admin Acetaminophen 650 mg Q6HP PRN PO 07/27/24 22:15 Acetaminophen/ Hydrocodone Bitart 1 tab Q4HP PRN PO 07/27/24 22:15 07/28/24 09:53 1 TAB Nitroglycerin 0.4 mg Q5MINP PRN SL 07/27/24 22:15 Morphine Sulfate 2 mg Q30M PRN IV 07/27/24 22:15 Diagnostic Test (Pha) 1 strip ACHS 07/28/24 07:00 07/29/24 06:10 1 STRIP Insulin Human Regular ACHS SC 07/28/24 07:00 07/29/24 06:11 2 UNITS Dextrose 50 ml UD PRN IV 07/27/24 22:15 Ondansetron HCl 4 mg Q6HPRN PRN IV 07/28/24 03:00 Levetiracetam 1,000 mg BID PO 07/28/24 10:00 07/28/24 21:59 1,000 MG Hydralazine HCl 25 mg Q8HR PO 07/28/24 14:00 07/28/24 21:59 25 MG Quetiapine Fumarate 50 mg HS PO 07/28/24 22:00 07/28/24 22:00 50 MG Pantoprazole Sodium 40 mg DAILY@0600 PO 07/29/24 06:00 07/29/24 06:12 40 MG Insulin Glargine 20 units QAM SC 07/29/24 07:00 07/29/24 06:10 20 UNITS Clonidine HCl 0.1 mg BID PO 07/28/24 10:00 07/28/24 22:00 0.1 MG Carvedilol 12.5 mg Q12HR PO 07/29/24 10:00 Apixaban 2.5 mg BID PO 07/28/24 22:00 07/28/24 22:00 2.5 MG Atorvastatin Calcium 40 mg HS PO 07/28/24 22:00 07/28/24 21:59 40 MG Examination Patient lying in bed, reports headache, photophobia General: Well-built, afebrile, mucosae are moist Cardiovascular: Regular S1 and S2. No murmurs, gallops or rubs. No JVD elevation. No pedal edema Respiratory: Normal B/L air entry on room air. Clear lung sounds on auscultation Abdomen: Soft, tender nondistended, normoactive bowel sounds, no rebound tenderness, no organomegaly, no masses Genitourinary: Deferred MSK/skin: Mobilizes 4 limbs. Skin is dry and warm Neurological: No motor, no sensitive deficits, normal speech. Pupils are isocoric and reactive. Psych/Mental Status: A/Ox3 laboratory and microbiology Laboratory Tests 07/29/24 05:39 07/28/24 05:23 Test 07/28/24 05:23 Range/Units Serum Glucose 119 H 74-106 mg/dL Labs and/or images reviewed: Labs reviewed by me, Image(s) reviewed by me Problem List/Assessment/Plan Problem List/Assessment/Plan ESRD on hemodialysis Thursday/Thursday/Thursday Hypertensive crisis Diabetic nephropathy Hypertensive nephrosclerosis Acute seizure episodes Probable Sepsis, source unknown Paroxysmal atrial fibrillation Amphetamine use dependence Vitamin-D deficiency Renal ultrasound 07/08/2024 showed no hydronephrosis. Distended bladder Echocardiogram 07/09/2024 showed LVEF 40%. Global LV hypokinesis. Head CT unremarkable chest x-ray unremarkable Plan: Patient is scheduled for hemodialysis for today. Rule out infection, follow up on blood culture, rule out tunneled catheter as the source of infection Continue antiseizure medication Keppra Continue antihypertensives Continue Eliquis Plan discussed with patient in which all questions have been answered Case discussed with Dr. Thompson Plan discussed with: Patient JOSE JACOBO RESIDENT July 29, 2024 10:52
[2024-07-29 11:06] LABS: Chloride 105 mmol/L (98-107); Potassium 4.1 mmol/L (3.5-5.1); Sodium 138 mmol/L (136-145)
[2024-07-29 11:07] LABS: Anion Gap 13 (5-15); Calcium 8.2 mg/dL (8.7-10.4); Carbon Dioxide 20 mmol/L (20-31)
[2024-07-29 11:12] LABS: BUN/Creatinine Ratio 6.6 (10.0-20.0); Basophils # (auto) 0 10 ^3/uL (0-0.2); Basophils % (auto) 0.5 % (0.0-2.0); Eosinophils # (auto) 0.2 10 ^3/uL (0-0.8); Eosinophils % (auto) 2.2 % (0.0-7.0); Hematocrit 31.2 % (41.0-53.0); Hemoglobin 10.7 g/dL (13.5-17.5); Lymphocytes # (auto) 2.1 10 ^3/uL (0.4-5.4); Lymphocytes % (auto) 22.9 % (10.0-50.0); Mean Corpuscular Hgb Conc. 34.5 g/dL (32.0-36.0); Mean Corpuscular Volume 87.2 fL (80.0-100.0); Monocytes # (auto) 1.3 10 ^3/uL (0-1.3); Monocytes % (auto) 14.3 % (0.0-12.0); Neutrophils # (auto) 5.6 10 ^3/uL (1.6-8.6); Neutrophils % (auto) 60.1 % (37.0-80.0); Nucleated Red Blood Cells % 0.1 %; Platelet Count (auto) 263 10^3/uL (140-450); Red Blood Cells 3.57 10^6/uL (4.5-5.90); Red Cell Distribution Width 14.5 % (11.8-14.3); White Blood Cell 9.3 10^3/uL (4.4-10.8)
[2024-07-29 11:13] LABS: Blood Urea Nitrogen 39 mg/dL (9-23); Glucose 133 mg/dL (74-106)
[2024-07-29] MEDS ORDERED: clonazePAM 0.5 MG TAB PO ONE (15:45)
--- NOTE | 2024-07-29 16:55 | DVHPNRES ---
Progress Note Date Seen: July 29, 2024 Resident Creating Document: JOSEF NUNN RESIDENT Medical Necessity Reason Pt with a Central, PICC or Fol: No Subjective Review of Systems Patient seen and examined at bedside. No new complains, no chest pain, BP under control, complaining of anxiety Eyes: No Pain, No Vision change, No Conjunctivae inflammation, No Eyelid inflammation, No Other, No Redness ENT: No Ear pain, No Ear discharge, No Nose pain, No Nose discharge, No Nose congestion, No Mouth pain, No Mouth swelling, No Throat pain, No Throat swelling, No Other Cardiovascular: No Chest Pain, No Palpitations, No Orthopnea, No Paroxysmal Noc. Dyspnea, No Edema, No Lt Headedness, No Other Respiratory: No Cough, No Dry, No Shortness of breath, No SOB with excertion, No Wheezing, No Hemoptysis, No Pleuritic Pain, No Sputum, No Other Gastrointestinal: No Nausea, No Vomiting, No Abdominal Pain, No Diarrhea, No Constipation, No Melena, No Hematochezia, No Other Genitourinary: No Dysuria, No Frequency, No Incontinence, No Hematuria, No Retention, No Other Musculoskeletal: No other, No neck pain, No shoulder pain, No arm pain, No back pain, No hand pain, No leg pain, No foot pain Skin: No Rash, No Lesions, No Jaundice, No Bruising, No Other Objective vital signs Vital Sign Date Time Temp Pulse Resp B/P (MAP) Pulse Ox O2 Delivery O2 Flow Rate FiO2 07/29/24 14:04 146/67 07/29/24 12:35 98.6 97 16 96 98.6 07/29/24 08:10 Room Air* 0 21 medications Current Medications Medications Dose Ordered Sig/Misty Route Start Time Stop Time Status Last Admin Dose Admin Acetaminophen 650 mg Q6HP PRN PO 07/27/24 22:15 Acetaminophen/ Hydrocodone Bitart 1 tab Q4HP PRN PO 07/27/24 22:15 07/29/24 14:04 1 TAB Nitroglycerin 0.4 mg Q5MINP PRN SL 07/27/24 22:15 Morphine Sulfate 2 mg Q30M PRN IV 07/27/24 22:15 Diagnostic Test (Pha) 1 strip ACHS 07/28/24 07:00 07/29/24 12:27 1 STRIP Insulin Human Regular ACHS SC 07/28/24 07:00 07/29/24 12:28 2 UNITS Dextrose 50 ml UD PRN IV 07/27/24 22:15 Ondansetron HCl 4 mg Q6HPRN PRN IV 07/28/24 03:00 Levetiracetam 1,000 mg BID PO 07/28/24 10:00 07/28/24 21:59 1,000 MG Hydralazine HCl 25 mg Q8HR PO 07/28/24 14:00 07/29/24 14:04 25 MG Quetiapine Fumarate 50 mg HS PO 07/28/24 22:00 07/28/24 22:00 50 MG Pantoprazole Sodium 40 mg DAILY@0600 PO 07/29/24 06:00 07/29/24 06:12 40 MG Insulin Glargine 20 units QAM SC 07/29/24 07:00 07/29/24 06:10 20 UNITS Carvedilol 12.5 mg Q12HR PO 07/29/24 10:00 Apixaban 2.5 mg BID PO 07/28/24 22:00 07/28/24 22:00 2.5 MG Atorvastatin Calcium 40 mg HS PO 07/28/24 22:00 07/28/24 21:59 40 MG Isosorbide Dinitrate 20 mg TID@06,12,18 PO 07/29/24 18:00 Mupirocin 1 applic BID EACHNOSTRI 07/29/24 22:00 08/03/24 21:59 Examination General Appearance: Cooperative. Well developed. Well nourished. NAD Head Exam: Normal inspection Neck Exam: Normal inspection. Non-tender. Normal alignment Pulmonary/Respiratory: Chest non-tender. Clear bilateral breath sounds Cardiovascular/Chest: Regular rate and rhythm. No murmurs. No JVD. Peripheral Pulses: 2+ Radial (R). 2+ Radial (L). 2+ Pedal (R). 2+ Pedal (L) Abdominal Exam: Normal bowel sounds. Soft. Nontender. No hepatospenomegaly. No masses Ankle Exam: Negative ankle edema Lower extremities: Negative lower extremity edema Neuro/Mental Status: A&O x4. Coherent Thoughts/Psych: Normal thought pattern. Appropriate mood and affect. Good judgement and insight Appearance: In no acute distress Skin Exam: Normal inspection. Normal color. Warm. Dry laboratory and microbiology Laboratory Tests 07/29/24 05:39 Test 07/29/24 05:39 Range/Units Serum Glucose 133 H 74-106 mg/dL Microbiology Date/Time Source Procedure Growth Status 07/28/24 22:20 Nose MRSA Screen - Final Methicillin Resistant S.aureus Complete 07/28/24 10:52 Blood Blood Culture - Preliminary NO GROWTH AFTER 24 HOURS OF INCUBATION. 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 daily. -hypertension: isosorbide mononitrate 25 mg PO TID.,Coreg 6.125mg po daily continue hydralazine 25 mg p.o. t.i.d. -reduced Eliquis dose from 5 mg p.o. b.i.d. to, renal dose 2.5 mg p.o. b.i.d. -reviewed echocardiogram: Ejection fraction 40% -nephrology consultation for hemodialysis -continue Keppra 500 mg p.o. b.i.d. for seizure -continue home medication for schizophrenia -vitamin-D 98671 IU once weekly -diabetes mellitus type 2: Insulin Lantus 20 units once daily, mild insulin sliding scale, diabetic diet -counseled on drug cessation, UDS positive for meth -PUD prophylaxis with Protonix -DVT prophylaxis with Eliquis Goals of care discussed greater than 22 minutes, full code status. Plan discussed with Dr Rene Benavidez discussed with: Patient, Other (RN) My Orders My Orders Orders - JOSEF NUNN Procedure Category Date Status Time Carvedilol Tablet PHA 07/29/24 In Process (Coreg Tablet) 10:00 Atorvastatin (Lipitor) PHA 07/28/24 In Process 22:00 Apixaban (Eliquis) PHA 07/28/24 In Process 22:00 Isosorbide Dinitrate PHA 07/29/24 In Process Tablet (Isordil Tab 18:00 Date of Service: July 29, 2024 Billing Provider: FABRICIO ANTHONY MD Common Visit Codes: [id number] INP/OBS CARE(HIGH) ARLINEJOSEF RESIDENT July 29, 2024 16:54 FABRICIO ANTHONY MD July 30, 2024 15:43
[2024-07-29] MEDS: ISOSORBIDE DINITRATE 10 MG TAB PO SCH (18:03)
[2024-07-29] MEDS: MUPIROCIN 2% OINT 15gm or 22gm FOR MRSA NARES EACHNOSTRI SCH (23:16)
[2024-07-30 06:12] LABS: Basophils # (auto) 0 10 ^3/uL (0-0.2); Basophils % (auto) 0.6 % (0.0-2.0); Eosinophils # (auto) 0.2 10 ^3/uL (0-0.8); Eosinophils % (auto) 2.6 % (0.0-7.0); Hematocrit 29.4 % (41.0-53.0); Hemoglobin 10.4 g/dL (13.5-17.5); Lymphocytes # (auto) 2.4 10 ^3/uL (0.4-5.4); Lymphocytes % (auto) 33.2 % (10.0-50.0); Mean Corpuscular Hemoglobin 30.7 pg (28.0-32.0); Mean Corpuscular Hgb Conc. 35.2 g/dL (32.0-36.0); Mean Corpuscular Volume 87.2 fL (80.0-100.0); Monocytes # (auto) 0.9 10 ^3/uL (0-1.3); Monocytes % (auto) 13.2 % (0.0-12.0); Neutrophils # (auto) 3.6 10 ^3/uL (1.6-8.6); Neutrophils % (auto) 50.4 % (37.0-80.0); Nucleated Red Blood Cells % 0.1 %; Platelet Count (auto) 257 10^3/uL (140-450); Red Blood Cells 3.38 10^6/uL (4.5-5.90); Red Cell Distribution Width 14.3 % (11.8-14.3); White Blood Cell 7.1 10^3/uL (4.4-10.8)
[2024-07-30 06:22] LABS: Anion Gap 9 (5-15); Carbon Dioxide 27 mmol/L (20-31); Chloride 101 mmol/L (98-107); Potassium 3.9 mmol/L (3.5-5.1); Sodium 137 mmol/L (136-145)
[2024-07-30 06:23] LABS: Calcium 8.8 mg/dL (8.7-10.4)
[2024-07-30 06:28] LABS: BUN/Creatinine Ratio 5.9 (10.0-20.0)
[2024-07-30 06:33] LABS: Blood Urea Nitrogen 32 mg/dL (9-23); Glucose 209 mg/dL (74-106)
[2024-07-30 08:00] VITALS: PULSE 116
[2024-07-30 09:00] VITALS: BP 110/61; PULSE 100; RESP 17; TEMP 97.8; O2SAT 97
--- NOTE | 2024-07-30 10:12 | DVHPN2 ---
Progress Note Date Seen: July 30, 2024 Medical Necessity Reason Pt with a Central, PICC or Fol: No Subjective Patient reports: No new complaints Other Systems: Patient seen and examined by myself today in follow-up Objective vital signs Vital Sign Date Time Temp Pulse Resp B/P (MAP) Pulse Ox O2 Delivery O2 Flow Rate FiO2 07/30/24 09:00 97.8 100 17 110/61 (77) 97 97.8 07/29/24 20:00 Room Air* 0 21 Total Intake and Output 07/29/24 07/29/24 07/30/24 15:00 23:00 07:00 Intake Total 240 ml 350 ml 240 ml Output Total 0 ml Balance 240 ml 350 ml 240 ml medications Current Medications Medications Dose Ordered Sig/Misty Route Start Time Stop Time Status Last Admin Dose Admin Acetaminophen 650 mg Q6HP PRN PO 07/27/24 22:15 Acetaminophen/ Hydrocodone Bitart 1 tab Q4HP PRN PO 07/27/24 22:15 07/29/24 18:25 1 TAB Nitroglycerin 0.4 mg Q5MINP PRN SL 07/27/24 22:15 Morphine Sulfate 2 mg Q30M PRN IV 07/27/24 22:15 Diagnostic Test (Pha) 1 strip ACHS 07/28/24 07:00 07/30/24 06:06 1 STRIP Insulin Human Regular ACHS SC 07/28/24 07:00 07/30/24 06:04 3 UNITS Dextrose 50 ml UD PRN IV 07/27/24 22:15 Ondansetron HCl 4 mg Q6HPRN PRN IV 07/28/24 03:00 Levetiracetam 1,000 mg BID PO 07/28/24 10:00 07/29/24 22:10 1,000 MG Hydralazine HCl 25 mg Q8HR PO 07/28/24 14:00 07/30/24 05:58 25 MG Quetiapine Fumarate 50 mg HS PO 07/28/24 22:00 07/29/24 22:10 50 MG Pantoprazole Sodium 40 mg DAILY@0600 PO 07/29/24 06:00 07/30/24 05:45 40 MG Insulin Glargine 20 units QAM SC 07/29/24 07:00 07/30/24 06:05 20 UNITS Carvedilol 12.5 mg Q12HR PO 07/29/24 10:00 Apixaban 2.5 mg BID PO 07/28/24 22:00 07/29/24 22:10 2.5 MG Atorvastatin Calcium 40 mg HS PO 07/28/24 22:00 07/29/24 22:10 40 MG Isosorbide Dinitrate 20 mg TID@06,12,18 PO 07/29/24 18:00 07/30/24 05:57 20 MG Mupirocin 1 applic BID EACHNOSTRI 07/29/24 22:00 08/03/24 21:59 07/29/24 23:16 1 APPLIC Examination laboratory and microbiology Laboratory Tests 07/30/24 05:29 Test 07/30/24 05:29 Range/Units Serum Glucose 209 H 74-106 mg/dL Microbiology Date/Time Source Procedure Growth Status 07/28/24 22:20 Nose MRSA Screen - Final Methicillin Resistant S.aureus Complete 07/28/24 10:52 Blood Blood Culture - Preliminary NO GROWTH AFTER 24 HOURS OF INCUBATION. Resulted Problem List/Assessment/Plan Problem List/Assessment/Plan ESRD on hemodialysis Thursday/Thursday/Thursday Hypertensive crisis Diabetic nephropathy Hypertensive nephrosclerosis Acute seizure episodes Probable Sepsis, source unknown Paroxysmal atrial fibrillation Amphetamine use dependence Vitamin-D deficiency Recommendations And next hemodialysis 08/01 Epogen 62520 subQ 3 times weekly Strict I&Os Renal diet Insulin sliding scale Vitamin-D replacement We will continue to follow up Plan discussed with: Patient ARTEMIO DENNISON MD July 30, 2024 10:12
[2024-07-30] MEDS ORDERED: HYDR25TA87 PO (11:58)
[2024-07-30] MEDS ORDERED: CARV-216 PO (11:58)
[2024-07-30] MEDS ORDERED: ATOR-507 PO (11:58)
[2024-07-30] MEDS ORDERED: ISOS10TA2 PO (11:58)
[2024-07-30] MEDS ORDERED: APIX2.5T PO (11:58)
[2024-07-30 12:43] VITALS: BP 115/67; PULSE 102; RESP 17; TEMP 97.8; O2SAT 96
[2024-07-30 13:00] VITALS: BP 115/67; PULSE 102; RESP 17; TEMP 98; O2SAT 96
--- NOTE | 2024-07-30 17:13 | DVHDSRES ---
Discharge Summary Date of Admission Resident Creating Document: JOSEF NUNN RESIDENT July 27, 2024 at 22:05 Date of Discharge: July 30, 2024 Admitting Diagnosis Chest pain Labs/Diagnostic Data: Laboratory Results Test 07/30/24 05:47 07/30/24 05:29 07/29/24 05:39 07/28/24 16:30 POC Glucose 191 mg/dl (70-106) White Blood Count 7.1 10^3/uL (4.4-10.8) Red Blood Count 3.38 10^6/uL (4.5-5.90) Hemoglobin 10.4 g/dL (13.5-17.5) Hematocrit 29.4 % (41.0-53.0) Mean Corpuscular Volume 87.2 fL (80.0-100.0) Mean Corpuscular Hemoglobin 30.7 pg (28.0-32.0) Mean Corpuscular Hemoglobin Concent 35.2 g/dL (32.0-36.0) Red Cell Distribution Width 14.3 % (11.8-14.3) Platelet Count 257 10^3/uL (140-450) Mean Platelet Volume 7.3 fL (6.9-10.8) Neutrophils (%) (Auto) 50.4 % (37.0-80.0) Lymphocytes (%) (Auto) 33.2 % (10.0-50.0) Monocytes (%) (Auto) 13.2 % (0.0-12.0) Eosinophils (%) (Auto) 2.6 % (0.0-7.0) Basophils (%) (Auto) 0.6 % (0.0-2.0) Neutrophils # (Auto) 3.6 10 ^3/uL (1.6-8.6) Lymphocytes # (Auto) 2.4 10 ^3/uL (0.4-5.4) Monocytes # (Auto) 0.9 10 ^3/uL (0-1.3) Eosinophils # (Auto) 0.2 10 ^3/uL (0-0.8) Basophils # (Auto) 0 10 ^3/uL (0-0.2) Nucleated Red Blood Cells 0.1 % Sodium Level 137 mmol/L (136-145) Potassium Level 3.9 mmol/L (3.5-5.1) Chloride Level 101 mmol/L (98-107) Carbon Dioxide Level 27 mmol/L (20-31) Anion Gap 9 (5-15) Blood Urea Nitrogen 32 mg/dL (9-23) Creatinine 5.45 mg/dL (0.700-1.30) Glomerular Filtration Rate Calc 12 mL/min (>90) BUN/Creatinine Ratio 5.9 (10.0-20.0) Serum Glucose 209 mg/dL (74-106) Calcium Level 8.8 mg/dL (8.7-10.4) Thyroid Stimulating Hormone (TSH) 4.36 uIU/mL (0.55-4.78) Hepatitis B Surface Antigen Negative (Negative) Influenza Type A Antigen Negative (Negative) Influenza Type B Antigen Negative (Negative) SARS-CoV-2 Antigen (Rapid) Negative (NEGATIVE) Test 07/28/24 05:23 07/28/24 02:34 07/27/24 22:21 07/27/24 19:30 Phosphorus Level 4.2 mg/dL (2.4-5.1) Total Bilirubin 0.3 mg/dL (0.2-1.0) Aspartate Amino Transferase (AST) 11 U/L (13-40) Alanine Aminotransferase (ALT) < 9 U/L (7-40) Alkaline Phosphatase 107 U/L (46-116) Total Protein 6.1 g/dL (5.7-8.2) Albumin 3.7 g/dL (3.2-4.8) Vitamin D 25-Hydroxy 18.5 ng/mL (30.0-100) Parathyroid Hormone (Intact) 216.7 pg/mL (18.4-80.1) Urine Color Light-yellow (Yellow) Urine Clarity Clear (Clear) Urine pH 7.0 (5.0-9.0) Urine Specific [place] 1.021 (1.001-1.035) Urine Protein 3+ (Negative) Urine Ketones Negative (Negative) Urine Blood 1+ /uL (Negative) Urine Nitrite Negative (Negative) Urine Bilirubin Negative (Negative) Urine Urobilinogen Normal mg/dL (Negative) Urine Leukocyte Esterase Negative /uL (Negative) Urine RBC 2 /hpf (0 - 3) Urine Microscopic WBC 1 /HPF (0-3) Urine Squamous Epithelial Cells None seen /hpf (<5) Urine Bacteria Few /hpf (None Seen) Urine Creatinine 106.68 mg/dL (30.0-125.0) Urine Protein/Creatinine Ratio 13.94 Urine Sodium 59 mmol/L (40-220) Urine Glucose 4+ mg/dL (Normal) Urine Total Protein 1487.4 mg/dL (1-14) Urine Opiates Screen Neg (NEGATIVE) Urine Fentanyl Screen Neg (NEGATIVE) Urine Barbiturates Screen Neg (NEGATIVE) Urine Phencyclidine Screen Neg (NEGATIVE) Urine Amphetamines Screen Pos (NEGATIVE) Urine Benzodiazepines Screen Neg (NEGATIVE) Urine Cocaine Screen Neg (NEGATIVE) Urine Cannabinoids Screen Pos (NEGATIVE) Troponin I High Sensitivity 16 ng/L (</=54) Lactic Acid Level 0.9 mmol/L (0.4-2.0) B-Type Natriuretic Peptide 541.83 pg/mL (0-100) Lipase 43 U/L (12-53) Other Laboratory Tests 07/30/24 05:29 Brief Hx & Hospital Course: Patient is 53-year-old male with past medical history of HFrEF, likely med induced, paroxysmal atrial fibrillation, ESRD, diabetes mellitus, hypertension, seizure, schizophrenia who came to the hospital with a chief complaint of chest pain, sharp, epigastric, comes and goes. Patient found to have uncontrolled hypertension, with negative troponin changes, no significant EKG changes. Patient was treated for hypertensive emergency with hydralazine 25 mg p.o. t.i.d., Coreg 6.125 mg p.o. daily, isosorbide mononitrate 25 mg p.o. t.i.d.. Patient blood pressure significantly improved, patient does not have any acute active chest pain. Meanwhile patient continued to received hemodialysis, echocardiogram showed ejection fraction of 40%, continued on home Keppra 500 mg p.o. b.i.d.. Continue on home dose insulin Lantus 20 units once daily and sliding scale. Given patient hemodynamically stable, no active chest pain, patient advised to follow up with primary care physician in outpatient setting. 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 UDS positive for methamphetamine Paroxysmal atrial fibrillation, currently sinus rhythm Sinus tachycardia ESRD on hemodialysis Diabetes mellitus type 2 insulin dependent Hypertensive emergency Seizure Schizophrenia Medication non adherent Drug using Dyslipidemia Vitamin-D deficiency MRSA nares Discharge Disposition: Home Discharge Instruct/Medications Diet: Cardiac 2g Na,low cholest Activity: No Restrictions, As Tolerated Follow Up/Referral: -Follow up with PCP in 2 weeks Medications: See prescription Discharge Statement: "Patient was advised to return to the ER or call 911 if any headaches, dizziness, shortness of breath, chest pain, abdominal pain, bleeding, fevers, or worsening of medical condition. Patient was counseled about treatment plan, medications, possible side effects, patientverbalized understanding. All questions were answered to the best of my ability. 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
== END 2024-07-30 16:05 | disposition home or self-care (01) | DRG 194 ==
LOC: ER 18:35 → EDBD 18:35 → OVERFLOW 22:05 → TELE-CENTR 07-28 17:42 → TELE-EAST 07-29 21:16
PROVIDERS: ADMIT Student in an Organized Health Care Education/Training Program; ATTEND Emergency Medicine
DX: I13.2 Hypertensive heart and chronic kidney disease with heart failure and with stage 5 chronic kidney disease, or end stage renal disease (principal); N18.6 End stage renal disease; D63.1 Anemia in chronic kidney disease; I42.7 Cardiomyopathy due to drug and external agent; B95.62 Methicillin resistant Staphylococcus aureus infection as the cause of diseases classified elsewhere; G40.909 Epilepsy, unspecified, not intractable, without status epilepticus; I48.0 Paroxysmal atrial fibrillation; E11.22 Type 2 diabetes mellitus with diabetic chronic kidney disease; I50.23 Acute on chronic systolic (congestive) heart failure; I16.0 Hypertensive urgency; Z99.2 Dependence on renal dialysis; F20.9 Schizophrenia, unspecified; E55.9 Vitamin D deficiency, unspecified; F19.10 Other psychoactive substance abuse, uncomplicated; F15.20 Other stimulant dependence, uncomplicated; Z20.822 Contact with and (suspected) exposure to COVID-19; E78.5 Hyperlipidemia, unspecified; Z91.199 Patient's noncompliance with other medical treatment and regimen due to unspecified reason; Z79.899 Other long term (current) drug therapy; Z79.4 Long term (current) use of insulin; Z79.01 Long term (current) use of anticoagulants; Z88.1 Allergy status to other antibiotic agents; Z88.0 Allergy status to penicillin
CPT/HCPCS: 36415; 70450; 71045; 80048; 80053; 80307; 81001; 82306; 82565; 82570; 82962; 83605; 83690; 83880; 83970; 84100; 84156; 84300; 84443; 84484; 84520; 85025; 87040; 87081; 87340; 87426; 87804; 90935; 93005; 96374; 96375; G0378; J1815; J2405

== ENCOUNTER 2024-08-01 18:47 | Inpatient (IN) | payer MEDICAID ==
[~2024-08-01] VITALS: Ht 182.9 cm; Wt 81.8 kg
[~2024-08-01 18:47] MED LIST changes: -AMLO1TAB22 PO; +APIX2.5T PO; -APIX5TAB PO; +CARV-216 PO; +HYDR25TA87 PO; +ISOS10TA2 PO; -METO-289 PO
[2024-08-01] MEDS: levETIRAcetam 1000 mg/100ml 100 ML IV ONE (20:00)
--- NOTE | 2024-08-01 20:08 | ED.PDOC ---
History of Present Illness HPI Comments 53 w/o M, with PMHx of DM, ESRD, HLD, HTN, seizures, and schizophrenia presents to the ED for CC of generalized weakness. Patient states, multiple complaints including headache, malaise, and weakness onset, [id number]. Patient reports, that he receives dialysis three times a week and was turned away today (08/01/24), d/t "not feeling good". Patient reports, "everything hurts, everything is wrong". 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 No other symptoms or modifying factors present at this time. Chief Complaint: General Weakness Time Seen by MD: 19:35 Primary Care Provider: unknown Reviewed Notes: Nurses Notes, Medications, Allergies Allergies: Coded Allergies: Erythromycin (Verified Allergy, Unknown, 04/17/24) Penicillins (Verified Allergy, Unknown, 04/17/24) Home Meds Active Scripts Isosorbide Dinitrate (Isosorbide Dinitrate) 10 Mg Tab, 20 MG PO TID@06,12,18 for 30 Days, #30 TAB Prov:JOSEF NUNN RESIDENT 07/30/24 Hydralazine HCl (Hydralazine HCl) 25 Mg Tab, 25 MG PO Q8HR for 30 Days, #90 TAB Prov:JOSEF NUNN RESIDENT 07/30/24 Carvedilol (COREG) 12.5 Mg Tab, 12.5 MG PO Q12HR for 30 Days, #60 TAB Prov:JOSEF NUNN RESIDENT 07/30/24 Apixaban Base (ELIQUIS) 2.5 Mg Tab, 2.5 MG PO BID for 30 Days, #60 TAB Prov:JOSEF NUNN RESIDENT 07/30/24 Atorvastatin Calcium (Lipitor) 40 Mg Tab, 40 MG PO DAILY for 40 Days, #40 TAB Prov:JOSEF NUNN RESIDENT 07/30/24 Reported Medications Quetiapine Fumerate (QUETIAPINE FUMARATE) 50 Mg Tab, 1 TAB PO 06/07/24 Bumetanide (Bumetanide) 1 Mg Tab, 1 TAB PO DAILY 06/07/24 Levetiracetam (Levetiracetam) 1,000 Mg Tab, 1 TAB PO BID 06/07/24 Insulin Lispro (Insulin Lispro Thai Kwi) 100 Unit/Ml Inj 06/07/24 Olopatadine HCl (Olopatadine Hydrochloride) 0.1 % Melchor, 1 DROP LEFTEYE BID 06/07/24 Discontinued Reported Medications Amlodipine Besylate (Amlodipine Besylate) 5 Mg Tab, 1 TAB PO DAILY 06/07/24 Apixaban Base (ELIQUIS) 5 Mg Tab, PO 06/07/24 Metoprolol Succinate (Metoprolol Succinate Er) 50 Mg Tab, 1 TAB PO DAILY 06/07/24 Information Source: Patient Mode of Arrival: Wheelchair Severity: Moderate Duration: Since onset Prehospital treatment: None Past Medical History PAST MEDICAL HISTORY: AFIB, CHF, DM, ESRD, High Lipids, HTN, Schizophrenia, Seizures Family History Family History: Reviewed,noncontributory to illness, Unknown Social History Smoker: Non-Smoker Alcohol: Denies ETOH Use Drugs: Unknown Lives In: Home Constitutional: reports: malaise, weakness; denies: chills, diaphoresis, fatigue, fever, sweats, others EENTM: denies: blurred vision, double vision, ear bleeding, ear discharge, ear drainage, ear pain, ear ringing, eye pain, eye redness, hearing loss, mouth pain, mouth swelling, nasal discharge, nose bleeding, nose congestion, nose pain, photophobia, tearing, throat pain, throat swelling, voice changes, others Respiratory: denies: cough, hemoptysis, orthopnea, SOB at rest, shortness of breath, SOB with excertion, stridor, wheezing, others Cardiovascular: denies: chest pain, dizzy spells, diaphoresis, Dyspnea on exertion, edema, irregular heart beat, left arm pain, lightheadedness, palpitations, PND, syncope, others Gastrointestinal: denies: abdomen distended, abdominal pain, blood streaked bowels, constipated, diarrhea, dysphagia, difficulty swallowing, hematemesis, melena, nausea, poor appetite, poor fluid intake, rectal bleeding, rectal pain, vomiting, others Genitourinary: denies: burning, dysuria, flank pain, frequency, hematuria, incontinence, penile discharge, penile sore, pain, testicle pain, testicle swelling, urgency, others Neurological: reports: seizure; denies: dizziness, fainting, headache, left sided numbness, left sided weakness, numbness, paresthesia, pre-existing deficit, right sided numbness, right sided weakness, speech problems, tingling, tremors, weakness, others Musculoskeletal: denies: back pain, gout, joint pain, joint swelling, muscle pain, muscle stiffness, neck pain, others Integumetry: denies: bruises, change in color, change in hair/nails, dryness, laceration, lesions, lumps, rash, wounds, others Allergic/Immunocompromised: denies: Difficulty Healing, Frequent Infections, Hives, Itching, others Hematologic/Lymphatic: denies: anemia, blood clots, easy bleeding, easy bruising, swollen glands, others Endocrine: denies: excessive hunger, excessive sweating, excessive thirst, excessive urination, flushing, intolerance to cold, intolerance to heat, unexplained weight gain, unexplained weight loss, others Psychiatric: denies: anxiety, bipolar disorder, depression, hopeless, panic disorder, schizophrenia, sleepless, suicidal, others All Other Systems: Reviewed and Negative Physical Exam General Appearance: Moderate Distress, Normal HEENT: Normal ENT Inspection, Pharynx Normal, TMs Normal Neck: Full Range of Motion, Non-Tender, Normal, Normal Inspection Respiratory: Chest Non-Tender, Lungs Clear, No Accessory Muscle Use, No Respiratory Distress, Normal Breath Sounds Cardiovascular: No Edema, No Murmur, No Gallop, Normal Peripheral Pulses, Regular Rate/Rhythm Breast Exam: Deferred Gastrointestinal: No Organomegaly, Non Tender, No Pulsatile Mass, Normal Bowel Sounds, Soft Genitalia: Deferred Pelvic: Deferred Rectal: Deferred Extremities: No calf tenderness, Normal capillary refill, Normal inspection, Normal range of motion, Non-tender, No pedal edema Musculoskeletal : Apperance: Normal Neurologic: Alert, 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 Was a procedure done?: No Differential Dx Considerations may include: GENERALIZED WEAKNESS, MALAISE, ELECTROLYTE IMBALANCE X-Ray, Labs, Meds, VS Vital Signs Date Time Temp Pulse Resp B/P (MAP) Pulse Ox O2 Delivery O2 Flow Rate FiO2 08/01/24 19:17 98.2 84 20 158/90 (112) 96 98.2 Lab Test 08/01/24 21:31 08/01/24 20:06 Range/Units Troponin I High Sensitivity 22 22 </=54 ng/L White Blood Count 9.1 # 4.4-10.8 10^3/uL Red Blood Count 4.46 L 4.5-5.90 10^6/uL Hemoglobin 13.1 #L 13.5-17.5 g/dL Hematocrit 38.6 #L 41.0-53.0 % Mean Corpuscular Volume 86.6 80.0-100.0 fL Mean Corpuscular Hemoglobin 29.5 28.0-32.0 pg Mean Corpuscular Hemoglobin Concent 34.0 32.0-36.0 g/dL Red Cell Distribution Width 14.3 11.8-14.3 % Platelet Count 318 140-450 10^3/uL Mean Platelet Volume 7.3 6.9-10.8 fL Neutrophils (%) (Auto) 73.9 37.0-80.0 % Lymphocytes (%) (Auto) 19.1 10.0-50.0 % Monocytes (%) (Auto) 5.4 0.0-12.0 % Eosinophils (%) (Auto) 1.3 0.0-7.0 % Basophils (%) (Auto) 0.3 0.0-2.0 % Neutrophils # (Auto) 6.7 1.6-8.6 10 ^3/uL Lymphocytes # (Auto) 1.7 0.4-5.4 10 ^3/uL Monocytes # (Auto) 0.5 0-1.3 10 ^3/uL Eosinophils # (Auto) 0.1 0-0.8 10 ^3/uL Basophils # (Auto) 0 0-0.2 10 ^3/uL Nucleated Red Blood Cells 0.0 % Sodium Level 138 136-145 mmol/L Potassium Level 4.6 3.5-5.1 mmol/L Chloride Level 101 98-107 mmol/L Carbon Dioxide Level 25 20-31 mmol/L Anion Gap 12 5-15 Blood Urea Nitrogen 40 H 9-23 mg/dL Creatinine 5.99 H 0.700-1.30 mg/dL Glomerular Filtration Rate Calc 10 >90 mL/min BUN/Creatinine Ratio 6.7 L 10.0-20.0 Serum Glucose 171 H 74-106 mg/dL Calcium Level 10.0 8.7-10.4 mg/dL Total Bilirubin 0.2 0.2-1.0 mg/dL Aspartate Amino Transferase (AST) 13 13-40 U/L Alanine Aminotransferase (ALT) 16 7-40 U/L Alkaline Phosphatase 120 H 46-116 U/L B-Type Natriuretic Peptide 657.96 0-100 pg/mL Total Protein 7.4 5.7-8.2 g/dL Albumin 4.4 3.2-4.8 g/dL X-Ray, Labs, Meds, VS Comment Imaging: X-rays and CT scans were reviewed and interpreted by this provider, imaging shows no fractures and no pathological disease. Pending radiology review. Laboratory: Labs reviewed and interpreted by this provider. No significant abnormalities noted. Patient has prior medical visits reviewed. Med reconciliation performed Vital signs reviewed Patient will be admitted for breakthrough seizures, pain control Patient will be admitted for missed dialysis Recommend dialysis consult in the morning Recommend possible cardiology consult in the morning in his sign Time of 1ST Reevaluation: 20:05 Reevaluation 1ST: Unchanged Patient Education/Counseling: Diagnosis, Treatment Family Education/Counseling: No Family Present Departure 1 Departure Time of Disposition: 22:40 Impression: Primary Impression: End stage renal disease on dialysis Additional Impressions: Missed dialysis Generalized weakness Seizure Disposition: ADMITTED INPATIENT Condition: Stable Critical Care Note Critical Care Time?: No Stability Stability form required: No Heart Score Heart Score: Heart Score Response (Comments) Value History N/A 0 EKG N/A 0 Age N/A 0 Risk Factors N/A 0 Troponin N/A 0 Total 0 I personally scribed for HIGGINS,DESTINYOPHER E HAY CHOPPER ([email or web address]) on 08/01/24 at 20:08. Electronically submitted by Lilia Koo ([employer]). I personally scribed for HIGGINS,CHRISTOPHER E HAY CHOPPER ([email or web address]) on 08/01/24 at 20:11. Electronically submitted by Lilia Koo ([employer]). I personally scribed for HIGGINS,CHRISTOPHER E HAY CHOPPER ([email or web address]) on 08/01/24 at 20:38. Electronically submitted by Lilia Koo ([employer]). I personally scribed for HIGGINS,CHRISTOPHER E HAY CHOPPER ([email or web address]) on 08/01/24 at 20:42. Electronically submitted by Lilia Koo ([email or web address]). GUANACO HIGGINS [facility] August 01, 2024 20:08
[2024-08-01 20:30] LABS: Basophils # (auto) 0 10 ^3/uL (0-0.2); Basophils % (auto) 0.3 % (0.0-2.0); Eosinophils # (auto) 0.1 10 ^3/uL (0-0.8); Eosinophils % (auto) 1.3 % (0.0-7.0); Hematocrit 38.6 % (41.0-53.0); Hemoglobin 13.1 g/dL (13.5-17.5); Lymphocytes # (auto) 1.7 10 ^3/uL (0.4-5.4); Lymphocytes % (auto) 19.1 % (10.0-50.0); Mean Corpuscular Hemoglobin 29.5 pg (28.0-32.0); Mean Corpuscular Volume 86.6 fL (80.0-100.0); Monocytes # (auto) 0.5 10 ^3/uL (0-1.3); Monocytes % (auto) 5.4 % (0.0-12.0); Neutrophils # (auto) 6.7 10 ^3/uL (1.6-8.6); Neutrophils % (auto) 73.9 % (37.0-80.0); Platelet Count (auto) 318 10^3/uL (140-450); Red Blood Cells 4.46 10^6/uL (4.5-5.90); Red Cell Distribution Width 14.3 % (11.8-14.3); White Blood Cell 9.1 10^3/uL (4.4-10.8)
[2024-08-01 20:47] LABS: Alanine Aminotransferase 16 U/L (7-40); Albumin 4.4 g/dL (3.2-4.8); Anion Gap 12 (5-15); BUN/Creatinine Ratio 6.7 (10.0-20.0); Carbon Dioxide 25 mmol/L (20-31); Chloride 101 mmol/L (98-107); Potassium 4.6 mmol/L (3.5-5.1); Sodium 138 mmol/L (136-145); Total Protein 7.4 g/dL (5.7-8.2)
[2024-08-01 21:13] LABS: Alkaline Phosphatase 120 U/L (46-116); Aspartate Aminotransferase 13 U/L (13-40); Bilirubin, Total 0.2 mg/dL (0.2-1.0); Blood Urea Nitrogen 40 mg/dL (9-23); Glucose 171 mg/dL (74-106)
--- NOTE | 2024-08-01 22:07 | DVH ---
CHEST RADIOGRAPH Indication: cp Technique: Single frontal view of the chest was obtained Comparison: XY CHEST XRAY 1 VIEW on DOS: 07/27/24, XY CHEST PORTABLE on DOS: 07/08/24, XY CHEST PORTABLE on DOS: 06/07/24 FINDINGS: Lines and Tubes: Hemodialysis catheter in place from the right internal jugular vein with the tip in the right atrium. Lungs: No focal consolidation. Pleura: No effusion. No pneumothorax. Cardiomediastinal contours: Unremarkable Bones: No acute osseous abnormality. IMPRESSION: 1. Right hemodialysis catheter in good position. 2. No right-sided pneumothorax.
[2024-08-01] MEDS: MORPHINE SULFATE 4 MG/ML SYR/VIAL IV ONE (22:45)
[2024-08-01] MEDS ORDERED: MORPHINE SULFATE INJ 2 MG/ml SYRG IV PRN (23:30)
[2024-08-01] MEDS ORDERED: NITROGLYCERIN 0.4 MG SL TAB SL PRN (23:30)
--- NOTE | 2024-08-02 00:01 | DVH ---
CT BRAIN WITHOUT CONTRAST HISTORY: SEIZURE TECHNIQUE: Axial scans were obtained from the skull base through the vertex without contrast. [place] l and coronal reformats were generated. One or more of the following radiation dose reduction techniq ues were used for this examination: automated exposure control, adjustment of the mA and/or kV accord ing to patient size, use of iterative reconstruction technique. COMPARISON: CT HEAD WITHOUT CONTRAST on DOS: 07/28/24 FINDINGS: No acute intracranial hemorrhage or evidence of large vessel territorial infarction identified at thi s time. No midline shift. The basilar cisterns are patent. Tiny hypodensities in the bilateral basal ganglia again noted. These may reflect dilated perivascular spaces or sequelae of chronic lacunar inf arcts. The paranasal sinuses mastoid air cells are clear. No grossly displaced calvarial abnormalities ident ified. IMPRESSION: No acute intracranial findings. If there is persistent clinical concern, follow-up MRI is recommended to further evaluate.
--- NOTE | 2024-08-02 00:36 | DVHHP2 ---
History of Present Illness History of Present Illness 53-year-old male with a complex medical history including atrial fibrillation, hypertension, HLD, DM, ESRD on hemodialysis, schizophrenia, and seizure disorder, presented to the ED via EMS after recent hospitalization, patient continued to feel generalized weakness, worsening headache, possible seizure episode if prompted visit to the hospital again. As per patient he has skipped today's hemodialysis, has not been taking his home medication, feeling worse, this prompted visit to the hospital. Apart from headache, generalized weakness, patient denied any other symptoms including fever, chills, chest pain, abdominal pain, motor weakness, sensory deficits, any other symptoms. Past Medical History: Paroxysmal atrial fibrillation HFrEF (EF 40%) Dilated cardiomyopathy (?drug-induced) Hypertension Dyslipidemia Type 2 diabetes mellitus (insulin-dependent) ESRD on hemodialysis Seizure disorder Schizophrenia History of glaucoma Medical noncompliance Polysubstance abuse Allergies: Erythromycin Penicillin Social History Smoker: Non-Smoker Alcohol: Denies ETOH Use Drugs: Unknown Lives In: Home Review of Systems Constitutional: No: Fever, Chills, Sweats, Weakness, Malaise, Other Eyes: No: Pain, Vision change, Conjunctivae inflammation, Eyelid inflammation, Other, Redness ENT: No: Ear pain, Ear discharge, Nose pain, Nose discharge, Nose congestion, Mouth pain, Mouth swelling, Throat pain, Throat swelling, Other Respiratory: No: Cough, Dry, Shortness of breath, SOB with excertion, Wheezing, Hemoptysis, Pleuritic Pain, Sputum, Wheezing, Other Cardiovascular: No: Chest Pain, Palpitations, Orthopnea, Paroxysmal Noc. Dyspnea, Edema, Lt Headedness, Other Gastrointestinal: No: Nausea, Vomiting, Abdominal Pain, Diarrhea, Constipation, Melena, Hematochezia, Other Genitourinary: No Dysuria, No Frequency, No Incontinence, No Hematuria, No Retention, No Other Musculoskeletal: No: other, neck pain, shoulder pain, arm pain, back pain, hand pain, leg pain, foot pain Neurological: Weakness Allergies: Coded Allergies: Erythromycin (Verified Allergy, Unknown, 04/17/24) Penicillins (Verified Allergy, Unknown, 04/17/24) Medications Current Medications Medications Dose Ordered Sig/Misty Route Start Time Stop Time Status Last Admin Dose Admin Nitroglycerin 0.4 mg Q5MINP PRN SL 08/01/24 23:30 Morphine Sulfate 2 mg Q30M PRN IV 08/01/24 23:30 Apixaban 2.5 mg BID PO 08/02/24 10:00 Bumetanide 1 mg DAILY PO 08/02/24 10:00 Carvedilol 12.5 mg Q12HR PO 08/02/24 10:00 Hydralazine HCl 25 mg Q8HR PO 08/02/24 06:00 Isosorbide Dinitrate 20 mg TID@06,12,18 PO 08/02/24 06:00 Atorvastatin Calcium 40 mg HS PO 08/02/24 22:00 Patient Own Medication 1 tab BID PO 08/02/24 10:00 UNV Quetiapine Fumarate 25 mg BID PO 08/02/24 10:00 Pantoprazole Sodium 40 mg DAILY@0600 PO 08/02/24 06:00 Exam Vital Signs Vital Signs Date Time Temp Pulse Resp B/P (MAP) Pulse Ox O2 Delivery O2 Flow Rate FiO2 08/01/24 19:17 98.2 84 20 158/90 (112) 96 98.2 General Appearance: Alert, Oriented X3, Cooperative HEENT: Atraumatic, PERRLA, EOMI, Mucous membr. moist/pink Respiratory: Clear to auscultation Cardiovascular: Regular rate, Normal S1, Normal S2 Abdominal: Normal bowel sounds, Soft, No tenderness Extremities: No clubbing, No cyanosis, No edema Skin: No rashes, No breakdown, No significant lesion Neuro: Normal gait, Normal speech, Strength at 5/5 X4 ext Psych/Mental Status: Mental status NL, Mood NL Labs/Xrays Labs Test 08/01/24 21:31 08/01/24 20:06 Range/Units Troponin I High Sensitivity 22 </=54 ng/L White Blood Count 9.1 # 4.4-10.8 10^3/uL Red Blood Count 4.46 L 4.5-5.90 10^6/uL Hemoglobin 13.1 #L 13.5-17.5 g/dL Hematocrit 38.6 #L 41.0-53.0 % Mean Corpuscular Volume 86.6 80.0-100.0 fL Mean Corpuscular Hemoglobin 29.5 28.0-32.0 pg Mean Corpuscular Hemoglobin Concent 34.0 32.0-36.0 g/dL Red Cell Distribution Width 14.3 11.8-14.3 % Platelet Count 318 140-450 10^3/uL Mean Platelet Volume 7.3 6.9-10.8 fL Neutrophils (%) (Auto) 73.9 37.0-80.0 % Lymphocytes (%) (Auto) 19.1 10.0-50.0 % Monocytes (%) (Auto) 5.4 0.0-12.0 % Eosinophils (%) (Auto) 1.3 0.0-7.0 % Basophils (%) (Auto) 0.3 0.0-2.0 % Neutrophils # (Auto) 6.7 1.6-8.6 10 ^3/uL Lymphocytes # (Auto) 1.7 0.4-5.4 10 ^3/uL Monocytes # (Auto) 0.5 0-1.3 10 ^3/uL Eosinophils # (Auto) 0.1 0-0.8 10 ^3/uL Basophils # (Auto) 0 0-0.2 10 ^3/uL Nucleated Red Blood Cells 0.0 % Sodium Level 138 136-145 mmol/L Potassium Level 4.6 3.5-5.1 mmol/L Chloride Level 101 98-107 mmol/L Carbon Dioxide Level 25 20-31 mmol/L Anion Gap 12 5-15 Blood Urea Nitrogen 40 H 9-23 mg/dL Creatinine 5.99 H 0.700-1.30 mg/dL Glomerular Filtration Rate Calc 10 >90 mL/min BUN/Creatinine Ratio 6.7 L 10.0-20.0 Serum Glucose 171 H 74-106 mg/dL Calcium Level 10.0 8.7-10.4 mg/dL Total Bilirubin 0.2 0.2-1.0 mg/dL Aspartate Amino Transferase (AST) 13 13-40 U/L Alanine Aminotransferase (ALT) 16 7-40 U/L Alkaline Phosphatase 120 H 46-116 U/L B-Type Natriuretic Peptide 657.96 0-100 pg/mL Total Protein 7.4 5.7-8.2 g/dL Albumin 4.4 3.2-4.8 g/dL Assessment/Plan Assessment/Plan Acute on chronic HFrEF ejection fraction 40% 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 UDS positive for methamphetamine Paroxysmal atrial fibrillation, currently sinus rhythm ESRD on hemodialysis Diabetes mellitus type 2 insulin dependent Hypertensive emergency Seizure Schizophrenia Medication non adherent Drug user Dyslipidemia Vitamin-D deficiency MRSA nares Plan/recommendation -hypertension: isosorbide mononitrate 25 mg PO TID.,Coreg 6.125mg po daily continue hydralazine 25 mg p.o. t.i.d. -head CT scan: No acute intracranial abnormality -reduced Eliquis dose from 5 mg p.o. b.i.d. to, renal dose 2.5 mg p.o. b.i.d. -reviewed echocardiogram: Ejection fraction 40%. Continue Bumex 1 mg p.o. daily. -nephrology consultation for hemodialysis -continue Keppra 500 mg p.o. b.i.d. for seizure -continue home medication for schizophrenia -vitamin-D 06244 IU once weekly -diabetes mellitus type 2: Insulin Lantus 20 units once daily, mild insulin sliding scale, diabetic diet -counseled on drug cessation -PUD prophylaxis with Protonix -DVT prophylaxis with Eliquis Goals of care discussed greater than 22 minutes, full code status. Plan discussed with Dr Begum Plan discussed with: Patient, Other (RN) My Orders Orders - JOSEF NUNN RESIDENT Procedure Category Date Status Time Admit ADMIT 08/01/24 Transmitted 23:24 Nitroglycerin PHA 08/01/24 In Process Sublingual (Ntrostat 23:30 Morphine Sulfate PHA 08/01/24 In Process Injection 23:[address] 08/01/24 Resulted 23:24 Apixaban (Eliquis) PHA 08/02/24 In Process 10:00 Bumetanide Tablet PHA 08/02/24 In Process (Bumex Tablet) 10:00 Carvedilol Tablet PHA 08/02/24 In Process (Coreg Tablet) 10:00 Hydralazine Hcl PHA 08/02/24 In Process Tablet (Apresoline 06:00 Isosorbide Dinitrate PHA 08/02/24 In Process Tablet (Isordil Tab 06:00 (Nf) Atorvastatin PHA 08/02/24 Logged Calcium (Lipitor) 10:00 (Nf) Levetiracetam PHA 08/02/24 Logged 10:00 Quetiapine Fumarate PHA 08/02/24 In Process Tablet (Seroquel Tab 10:00 Pantoprazole Tablet PHA 08/02/24 Logged (Protonix Tablet) 06:00 *Dr. [facility] CONS 08/02/24 Transmitted -[place] 00:26 * Scale Clerk CONS 08/02/24 Transmitted Consult Renal Specific DIET 08/02/24 Transmitted Diet(Renal) Breakfast Date of Service: August 01, 2024 Billing Provider: LINN BEGUM MD Common Visit Codes: [id number] INP/OBS CARE (HIGH) Secondary Visit Codes: [id number] CARE PLAN 30 MINUTES JOSEF NUNN RESIDENT August 02, 2024 00:36
[2024-08-02] MEDS: ONDANSETRON HCL 4 MG/2 ML VIAL IV ONE (05:35)
[2024-08-02] MEDS: ISOSORBIDE DINITRATE 10 MG TAB PO SCH (05:40)
[2024-08-02] MEDS: PANTOPRAZOLE 40 MG TAB PO SCH (05:40)
[2024-08-02] MEDS: hydrALAZINE HCL 25 MG TAB PO SCH (05:40)
[2024-08-02 06:00] VITALS: O2SAT 98
[2024-08-02 08:00] LABS: Anion Gap 15 (5-15); Carbon Dioxide 24 mmol/L (20-31); Chloride 100 mmol/L (98-107); Potassium 4.6 mmol/L (3.5-5.1); Sodium 139 mmol/L (136-145)
[2024-08-02 08:02] LABS: Calcium 10.1 mg/dL (8.7-10.4)
[2024-08-02 08:07] LABS: BUN/Creatinine Ratio 6.8 (10.0-20.0)
[2024-08-02 08:08] LABS: Blood Urea Nitrogen 46 mg/dL (9-23); Glucose 200 mg/dL (74-106)
--- NOTE | 2024-08-02 09:59 | DVHCONRES ---
Date Seen: August 02, 2024 Resident Creating Document: ISABEL LOCK RESIDENT Referring Physician Khadar Reason for Consultation ESRD on HD History of Present Illness This is a 53-year-old male with an extensive past medical history consistent with hypertension, dyslipidemia, type 2 diabetes insulin dependent, paroxysmal atrial fibrillation, CHF with an ejection fraction of 40%, dilated cardiom yopathy, seizure disorder, schizophrenia, end-stage renal disease on hemodialysis (Thursday/Thursday/Thursday) and polysubstance abuse. The patient presented to the ED after being on his dialysis center, patient states that he was performing hemodialysis but was not able to complete the session due to starting feeling shortness of breath, generalized weakness and blurry vision for which session has to be stopped and patient came to the ED. upon admission patient was reporting generalized weakness, fatigue, shortness of breaths and blurry vision that started to improve. Initial labs were showing normal CBC but BMP was showing creatinine of 6.76 and BUN of 46. BNP was slightly elevated at 657, troponins were negative. Initial chest x-ray was grossly unremarkable without significant pulmonary congestion or any evidence of consolidation. A CT scan of the head was performed and was grossly unremarkable as well. Upon my examination, the patient has a tunneled catheter placed in the right upper chest at the subclavian. Bilateral lung daly at auscultation were grossly clear with no peripheral edema. Patient was having irregular heart sounds and reporting mild nausea without vomiting, diarrhea or constipation. There was also mild tenderness to palpation at the periumbilical area. We will schedule the patient for hemodialysis. Patient denied any additional symptoms or complaints at this time. Past Medical History Hypertension, dyslipidemia, type 2 diabetes mellitus insulin dependent, dilated cardiomyopathy, paroxysmal atrial fibrillation, heart failure reduced ejection fraction of 40%, end-stage renal disease on hemodialysis, seizure disorder, schizophrenia, history of glaucoma, polysubstance abuse Past Surgical History Unspecified head surgery, left hip replacement Family History: Patient reports no known family medical history. Family History Noncontributory Social History Patient reports methamphetamine abuse but last drug intake was on March before the placement of tunneled catheter dialysis. Patient also states that smokes cigarettes but smokes one pack a month. Patient denies alcohol consumption. Allergies: Coded Allergies: Erythromycin (Verified Allergy, Unknown, 04/17/24) Penicillins (Verified Allergy, Unknown, 04/17/24) Home Meds Active Scripts Isosorbide Dinitrate (Isosorbide Dinitrate) 10 Mg Tab, 20 MG PO TID@06,12,18 for 30 Days, #30 TAB Prov:JOSEF NUNN RESIDENT 07/30/24 Hydralazine HCl (Hydralazine HCl) 25 Mg Tab, 25 MG PO Q8HR for 30 Days, #90 TAB Prov:JOSEF NUNN RESIDENT 07/30/24 Carvedilol (COREG) 12.5 Mg Tab, 12.5 MG PO Q12HR for 30 Days, #60 TAB Prov:JOSEF NUNN RESIDENT 07/30/24 Apixaban Base (ELIQUIS) 2.5 Mg Tab, 2.5 MG PO BID for 30 Days, #60 TAB Prov:JOSEF NUNN RESIDENT 07/30/24 Atorvastatin Calcium (Lipitor) 40 Mg Tab, 40 MG PO DAILY for 40 Days, #40 TAB Prov:JOSEF NUNN RESIDENT 07/30/24 Reported Medications Quetiapine Fumerate (QUETIAPINE FUMARATE) 50 Mg Tab, 1 TAB PO 06/07/24 Bumetanide (Bumetanide) 1 Mg Tab, 1 TAB PO DAILY 06/07/24 Levetiracetam (Levetiracetam) 1,000 Mg Tab, 1 TAB PO BID 06/07/24 Insulin Lispro (Insulin Lispro Thai Kwi) 100 Unit/Ml Inj 06/07/24 Olopatadine HCl (Olopatadine Hydrochloride) 0.1 % Melchor, 1 DROP LEFTEYE BID 06/07/24 Discontinued Reported Medications Amlodipine Besylate (Amlodipine Besylate) 5 Mg Tab, 1 TAB PO DAILY 06/07/24 Apixaban Base (ELIQUIS) 5 Mg Tab, PO 06/07/24 Metoprolol Succinate (Metoprolol Succinate Er) 50 Mg Tab, 1 TAB PO DAILY 06/07/24 Current Medications Current Medications Medications (Trade) Dose Ordered Sig/Misty Route PRN Reason Start Time Stop Time Status Last Admin Nitroglycerin (Ntrostat Sublingual) 0.4 mg Q5MINP PRN SL FOR CHEST PAIN 08/01/24 23:30 Morphine Sulfate 2 mg Q30M PRN IV FOR CHEST PAIN 08/01/24 23:30 Apixaban (Eliquis) 2.5 mg BID PO 5/13/25 10:00 Bumetanide (Bumex Tablet) 1 mg DAILY PO 08/02/24 10:00 Carvedilol (Coreg Tablet) 12.5 mg Q12HR PO 08/02/24 10:00 Hydralazine HCl (Apresoline Tablet) 25 mg Q8HR PO 08/02/24 06:00 08/02/24 05:40 Isosorbide Dinitrate (Isordil Tablet) 20 mg TID@06,12,18 PO 08/02/24 06:00 08/02/24 05:40 Atorvastatin Calcium (Lipitor) 40 mg HS PO 08/02/24 22:00 Levetiracetam (Keppra Tablet) 1,000 mg BID PO 08/02/24 10:00 Quetiapine Fumarate (SEROquel TABLET) 25 mg BID PO 08/02/24 10:00 Pantoprazole Sodium (Protonix Tablet) 40 mg DAILY@0600 PO 08/02/24 06:00 08/02/24 05:40 Review of Systems ROS Constitutional: Reports generalized weakness and fatigue. Denies weight loss, fever and chills. HEENT: Denies changes in vision and hearing. Respiratory: Reports mild shortness of breath. Denies cough Cardiovascular: Denies chest discomfort or palpitations GI: Reports mild to moderate abdominal tenderness at the periumbilical area associated with nausea but denies vomiting, diarrhea or constipation. : Denies dysuria and urinary frequency. Musculoskeletal: Denies myalgias and joint pain Skin: Denies rash and pruritus. Neurological: Denies dizziness, headache, vision or hearing problems Vital Signs Vital Signs Date Time Temp Pulse Resp B/P (MAP) Pulse Ox O2 Delivery O2 Flow Rate FiO2 08/02/24 08:06 97.7 104 18 130/77 (94) 96 97.7 08/02/24 06:00 Room Air* 0 21 Physical Exam Physical Examination General: Patient alert and oriented in person, place and time. Patient seems weak and fatigued. Patient following commands HEENT: Normocephalic, atraumatic, moist mucous membranes. Patient is legally blind on left side and decreased visual acuity in the right side. Respiratory/pulmonary: Bilateral lung sounds grossly clear with no clear evidence of crackles or wheezes at this time. Cardiovascular: Irregular heart sounds S1 and S2 with no associated murmurs Abdomen: Abdomen nondistended, there is mild tenderness to palpation at the periumbilical area. No evidence of masses at this time Extremities: There is no peripheral edema present at the lower extremities. Skin: No rashes or pruritus, there is no sacral edema present at this time. Neurological: Intact cranial nerves with no focal neurologic deficits Labs/Diagnostic Data Labs Test 08/02/24 08:57 08/02/24 07:18 08/01/24 21:31 08/01/24 20:06 Range/Units Sodium Level 139 136-145 mmol/L Potassium Level 4.6 3.5-5.1 mmol/L Chloride Level 100 98-107 mmol/L Carbon Dioxide Level 24 20-31 mmol/L Anion Gap 15 5-15 Blood Urea Nitrogen 46 H 9-23 mg/dL Creatinine 6.76 H 0.700-1.30 mg/dL Glomerular Filtration Rate Calc 9 >90 mL/min BUN/Creatinine Ratio 6.8 L 10.0-20.0 Serum Glucose 200 H 74-106 mg/dL Calcium Level 10.1 8.7-10.4 mg/dL Troponin I High Sensitivity 22 </=54 ng/L White Blood Count 9.1 # 4.4-10.8 10^3/uL Red Blood Count 4.46 L 4.5-5.90 10^6/uL Hemoglobin 13.1 #L 13.5-17.5 g/dL Hematocrit 38.6 #L 41.0-53.0 % Mean Corpuscular Volume 86.6 80.0-100.0 fL Mean Corpuscular Hemoglobin 29.5 28.0-32.0 pg Mean Corpuscular Hemoglobin Concent 34.0 32.0-36.0 g/dL Red Cell Distribution Width 14.3 11.8-14.3 % Platelet Count 318 140-450 10^3/uL Mean Platelet Volume 7.3 6.9-10.8 fL Neutrophils (%) (Auto) 73.9 37.0-80.0 % Lymphocytes (%) (Auto) 19.1 10.0-50.0 % Monocytes (%) (Auto) 5.4 0.0-12.0 % Eosinophils (%) (Auto) 1.3 0.0-7.0 % Basophils (%) (Auto) 0.3 0.0-2.0 % Neutrophils # (Auto) 6.7 1.6-8.6 10 ^3/uL Lymphocytes # (Auto) 1.7 0.4-5.4 10 ^3/uL Monocytes # (Auto) 0.5 0-1.3 10 ^3/uL Eosinophils # (Auto) 0.1 0-0.8 10 ^3/uL Basophils # (Auto) 0 0-0.2 10 ^3/uL Nucleated Red Blood Cells 0.0 % Total Bilirubin 0.2 0.2-1.0 mg/dL Aspartate Amino Transferase (AST) 13 13-40 U/L Alanine Aminotransferase (ALT) 16 7-40 U/L Alkaline Phosphatase 120 H 46-116 U/L B-Type Natriuretic Peptide 657.96 0-100 pg/mL Total Protein 7.4 5.7-8.2 g/dL Albumin 4.4 3.2-4.8 g/dL Assessment Assessment/plan End-stage renal disease on hemodialysis (Thursday/Thursday/Thursday) Acute hypoxic respiratory failure likely due to slight volume overload due to missed hemodialysis Acute on chronic systolic heart failure (HFrEF40%) Dilated cardiomyopathy likely drug induced (methamphetamine abuse) Primary hypertension Type 2 diabetes mellitus insulin-dependent Paroxysmal atrial fibrillation History of seizure disorder History of schizophrenia History of blindness and glaucoma Polysubstance abuse Plan -last hemodialysis was performed yesterday but was incomplete due to patient developing generalized weakness, shortness of breaths and blurry vision -tunneled catheter placed on right upper chest -we will schedule hemodialysis for tomorrow -continue Bumex 1 mg p.o. -monitor electrolytes closely -renal diet -strict in's and out -avoid nephrotoxic drugs -restart heart failure/hypertensive medications, per primary team -continue anticoagulation for paroxysmal AFib and type 2 diabetes mellitus treatment per primary team -counseled on methamphetamine cessation, and smoking as well. Goals of care discussed with the patient at bedside for > 25min, FULL CODE Plan discussed with Dr. Fernandes Addendum Patient seen and examined, plan discussed with resident. Agree with above, we will follow closely Very noncompliant patient as outpatient Plan discussed with: Patient ISABEL LOCK August 02, 2024 09:59 SHAYY FERNANDES MD August 03, 2024 11:49
[2024-08-02] MEDS: BUMETANIDE 1 MG TAB PO SCH (10:44)
[2024-08-02] MEDS: levETIRAcetam 500 MG TAB PO SCH (10:45)
[2024-08-02] MEDS: APIXABAN 2.5 MG TAB PO SCH (10:46)
[2024-08-02] MEDS: CARVEDILOL 12.5 MG TAB PO SCH (10:46)
[2024-08-02] MEDS: QUEtiapine FUMARATE 25 MG TAB PO SCH (10:46)
[2024-08-02] MEDS: ATORVASTATIN 20 MG TAB PO SCH (21:41)
[2024-08-03 01:00] VITALS: BP 120/74; PULSE 81; RESP 17; O2SAT 93
[2024-08-03 01:26] VITALS: PULSE 80; O2SAT 98
[2024-08-03 08:00] VITALS: PULSE 77; RESP 16; O2SAT 97
--- NOTE | 2024-08-03 11:50 | DVHPN2 ---
Progress Note Date Seen: August 03, 2024 Medical Necessity Reason Pt with a Central, PICC or Fol: Yes Subjective Patient reports: No new complaints Review of Systems: Deferred Objective vital signs Vital Sign Date Time Temp Pulse Resp B/P (MAP) Pulse Ox O2 Delivery O2 Flow Rate FiO2 08/03/24 10:00 79 16 129/83 (98) 96 08/03/24 08:00 Room Air* 0 21 08/03/24 08:00 97.4 97.4 medications Current Medications Medications Dose Ordered Sig/Misty Route Start Time Stop Time Status Last Admin Dose Admin Nitroglycerin 0.4 mg Q5MINP PRN SL 08/01/24 23:30 Morphine Sulfate 2 mg Q30M PRN IV 08/01/24 23:30 Apixaban 2.5 mg BID PO 08/02/24 10:00 08/03/24 09:41 2.5 MG Bumetanide 1 mg DAILY PO 08/02/24 10:00 08/03/24 09:41 1 MG Carvedilol 12.5 mg Q12HR PO 08/02/24 10:00 08/02/24 21:42 12.5 MG Hydralazine HCl 25 mg Q8HR PO 08/02/24 06:00 08/02/24 21:42 25 MG Isosorbide Dinitrate 20 mg TID@06,12,18 PO 08/02/24 06:00 08/02/24 12:45 20 MG Atorvastatin Calcium 40 mg HS PO 08/02/24 22:00 08/02/24 21:41 40 MG Levetiracetam 1,000 mg BID PO 08/02/24 10:00 08/03/24 09:41 1,000 MG Quetiapine Fumarate 25 mg BID PO 08/02/24 10:00 08/03/24 09:41 25 MG Pantoprazole Sodium 40 mg DAILY@0600 PO 08/02/24 06:00 08/03/24 05:54 40 MG laboratory and microbiology Laboratory Tests 08/02/24 07:18 08/01/24 20:06 Test 08/02/24 07:18 Range/Units Serum Glucose 200 H 74-106 mg/dL Problem List/Assessment/Plan Problem List/Assessment/Plan End-stage renal disease on hemodialysis (Thursday/Thursday/Thursday) Acute hypoxic respiratory failure likely due to slight volume overload due to missed hemodialysis Acute on chronic systolic heart failure (HFrEF40%) Dilated cardiomyopathy likely drug induced (methamphetamine abuse) Primary hypertension Type 2 diabetes mellitus insulin-dependent Paroxysmal atrial fibrillation History of seizure disorder History of schizophrenia History of blindness and glaucoma Polysubstance abuse recs Hemodialysis today 08/03 Rest of the management per hospitalist Plan discussed with: Patient My Orders My Orders Orders - SHAYY FERNANDES MD Procedure Category Date Status Time Hemodialysis Orders ORDERS 08/03/24 Transmitted 04:00 Dialysis Nursing YOLY 08/03/24 In Process Message 07:00 Document Fluid Input YOLY 08/03/24 In Process And Outpu 07:00 SHAYY FERNANDES MD August 03, 2024 11:50
[2024-08-03] MEDS: MORPHINE SULFATE INJ 2 MG/ml SYRG IV PRN (16:09)
--- NOTE | 2024-08-03 18:32 | DVHPN2 ---
Subjective in bed with no chest pain Changes from previous H/P or p: No Changes Eyes: No Pain, No Vision change, No Conjunctivae inflammation, No Eyelid inflammation, No Other, No Redness ENT: No Ear pain, No Ear discharge, No Nose pain, No Nose discharge, No Nose congestion, No Mouth pain, No Mouth swelling, No Throat pain, No Throat swelling, No Other Cardiovascular: No Chest Pain, No Palpitations, No Orthopnea, No Paroxysmal Noc. Dyspnea, No Edema, No Lt Headedness, No Other Respiratory: No Cough, No Dry, No Shortness of breath, No SOB with excertion, No Wheezing, No Hemoptysis, No Pleuritic Pain, No Sputum, No Other Gastrointestinal: No Nausea, No Vomiting, No Abdominal Pain, No Diarrhea, No Constipation, No Melena, No Hematochezia, No Other Genitourinary: No Dysuria, No Frequency, No Incontinence, No Hematuria, No Retention, No Other Musculoskeletal: No other, No neck pain, No shoulder pain, No arm pain, No back pain, No hand pain, No leg pain, No foot pain Objective Vitals Vital Signs Date Time Temp Pulse Resp B/P (MAP) Pulse Ox O2 Delivery O2 Flow Rate FiO2 08/03/24 16:48 70 16 109/60 08/03/24 16:00 98 08/03/24 12:12 97.9 97.9 08/03/24 08:00 Room Air* 0 21 General Appearance: Alert, Oriented X3 Lungs: Clear to auscultation Cardiovascular: Regular rate, Normal S1, Normal S2 Medications Current Medications Medications Dose Ordered Sig/Misty Route Start Time Stop Time Status Last Admin Dose Admin Nitroglycerin 0.4 mg Q5MINP PRN SL 08/01/24 23:30 Morphine Sulfate 2 mg Q30M PRN IV 08/01/24 23:30 Apixaban 2.5 mg BID PO 08/02/24 10:00 08/03/24 09:41 2.5 MG Bumetanide 1 mg DAILY PO 08/02/24 10:00 08/03/24 09:41 1 MG Carvedilol 12.5 mg Q12HR PO 08/02/24 10:00 08/02/24 21:42 12.5 MG Hydralazine HCl 25 mg Q8HR PO 08/02/24 06:00 08/02/24 21:42 25 MG Isosorbide Dinitrate 20 mg TID@06,12,18 PO 08/02/24 06:00 08/02/24 12:45 20 MG Atorvastatin Calcium 40 mg HS PO 08/02/24 22:00 08/02/24 21:41 40 MG Levetiracetam 1,000 mg BID PO 08/02/24 10:00 08/03/24 09:41 1,000 MG Quetiapine Fumarate 25 mg BID PO 08/02/24 10:00 08/03/24 09:41 25 MG Pantoprazole Sodium 40 mg DAILY@0600 PO 08/02/24 06:00 08/03/24 05:54 40 MG Morphine Sulfate 2 mg Q4HPRN PRN IV 08/03/24 15:30 08/03/24 16:09 2 MG Laboratory Results Laboratory Tests 08/01/24 20:06 08/02/24 07:18 Microbiology Microbiology Date/Time Source Procedure Growth Status 08/03/24 08:15 Nose MRSA Screen - Final Methicillin Resistant S.aureus Complete Assessment/Plan Assessment/Plan Acute on chronic HFrEF ejection fraction 40% 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 UDS positive for methamphetamine Paroxysmal atrial fibrillation, currently sinus rhythm ESRD on hemodialysis Diabetes mellitus type 2 insulin dependent Hypertensive emergency Seizure Schizophrenia Medication non adherent Drug user Dyslipidemia Vitamin-D deficiency MRSA nares Getting HD today Continue home medications Bumex oral Plan discussed with: Patient My Orders Orders - HILDA MURPHY MD Procedure Category Date Status Time Morphine Sulfate PHA 08/03/24 In Process Injection 15:30 Date of Service: August 03, 2024 Billing Provider: HILDA MURPHY MD Common Visit Codes: [id number] INP/OBS CARE(HIGH) HILDA MURPHY MD August 03, 2024 18:32
[2024-08-03 19:40] VITALS: RESP 13; O2SAT 95
[2024-08-03 20:00] VITALS: PULSE 87; RESP 16; O2SAT 98
[2024-08-03 22:12] VITALS: BP 145/83; PULSE 87; RESP 16; TEMP 98.2; O2SAT 98
[2024-08-04 01:00] VITALS: BP 126/81; PULSE 96; RESP 18; TEMP 97.9; O2SAT 93
[2024-08-04] MEDS: LOPERAMIDE HCL 2 MG CAP/TAB PO PRN (01:59)
[2024-08-04 08:05] VITALS: O2SAT 97
[2024-08-04 08:50] VITALS: BP 117/72; PULSE 92; RESP 16; TEMP 99.1; O2SAT 97
--- NOTE | 2024-08-04 08:53 | CONS ---
Pharmacy Clinical Information: From Heart Failure Potential Fallout Report on CQM Application, Stu Goins is a 53 year old male with PMH of paroxysmal Afib, HTN, HLD, T2DM (insulin-dependent), ESRD, HFrEF, schizophrenia, seizure. His serum glucose was >180 mg/dL on one occasion and his A1c was 8.1% back in 07/08/24. His home medication include insulin lispro. Consider initiation of insulin sliding scale if hyperglycemia > 180 mg/dL is persistent. SGLT2i not recommended due to ESRD since eGFR < 10. JATIN FREEMAN PHARMACIST August 04, 2024 08:53
[2024-08-04 13:00] VITALS: BP 154/68; PULSE 86; RESP 16; TEMP 97.2; O2SAT 97
[2024-08-04 17:32] VITALS: BP 107/60; PULSE 87; RESP 17; TEMP 97.2; O2SAT 94
--- NOTE | 2024-08-04 17:48 | DVHDS2 ---
Discharge Summary Date of Admission August 01, 2024 at 23:24 Date of Discharge: August 04, 2024 Labs/Diagnostic Data: Laboratory Results Test 08/02/24 08:57 08/02/24 07:18 08/01/24 21:31 08/01/24 20:06 Ammonia < 10 umol/L (11-32) Sodium Level 139 mmol/L (136-145) Potassium Level 4.6 mmol/L (3.5-5.1) Chloride Level 100 mmol/L (98-107) Carbon Dioxide Level 24 mmol/L (20-31) Anion Gap 15 (5-15) Blood Urea Nitrogen 46 mg/dL (9-23) Creatinine 6.76 mg/dL (0.700-1.30) Glomerular Filtration Rate Calc 9 mL/min (>90) BUN/Creatinine Ratio 6.8 (10.0-20.0) Serum Glucose 200 mg/dL (74-106) Calcium Level 10.1 mg/dL (8.7-10.4) Troponin I High Sensitivity 22 ng/L (</=54) White Blood Count 9.1 10^3/uL (4.4-10.8) Red Blood Count 4.46 10^6/uL (4.5-5.90) Hemoglobin 13.1 g/dL (13.5-17.5) Hematocrit 38.6 % (41.0-53.0) Mean Corpuscular Volume 86.6 fL (80.0-100.0) Mean Corpuscular Hemoglobin 29.5 pg (28.0-32.0) Mean Corpuscular Hemoglobin Concent 34.0 g/dL (32.0-36.0) Red Cell Distribution Width 14.3 % (11.8-14.3) Platelet Count 318 10^3/uL (140-450) Mean Platelet Volume 7.3 fL (6.9-10.8) Neutrophils (%) (Auto) 73.9 % (37.0-80.0) Lymphocytes (%) (Auto) 19.1 % (10.0-50.0) Monocytes (%) (Auto) 5.4 % (0.0-12.0) Eosinophils (%) (Auto) 1.3 % (0.0-7.0) Basophils (%) (Auto) 0.3 % (0.0-2.0) Neutrophils # (Auto) 6.7 10 ^3/uL (1.6-8.6) Lymphocytes # (Auto) 1.7 10 ^3/uL (0.4-5.4) Monocytes # (Auto) 0.5 10 ^3/uL (0-1.3) Eosinophils # (Auto) 0.1 10 ^3/uL (0-0.8) Basophils # (Auto) 0 10 ^3/uL (0-0.2) Nucleated Red Blood Cells 0.0 % Total Bilirubin 0.2 mg/dL (0.2-1.0) Aspartate Amino Transferase (AST) 13 U/L (13-40) Alanine Aminotransferase (ALT) 16 U/L (7-40) Alkaline Phosphatase 120 U/L (46-116) B-Type Natriuretic Peptide 657.96 pg/mL (0-100) Total Protein 7.4 g/dL (5.7-8.2) Albumin 4.4 g/dL (3.2-4.8) Other Laboratory Tests 08/02/24 07:18 08/01/24 20:06 Brief Hx & Hospital Course: Acute on chronic HFrEF ejection fraction 40% 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 UDS positive for methamphetamine Paroxysmal atrial fibrillation, currently sinus rhythm ESRD on hemodialysis Diabetes mellitus type 2 insulin dependent Hypertensive emergency Seizure Schizophrenia Medication non adherent Drug user Dyslipidemia Vitamin-D deficiency MRSA nares He got dialyzed and tolerated well HF improved Condition at Discharge: Good Final Diagnosis/Problems List Hypertensive urgency Fluid overload Discharge Disposition: Home Discharge Instruct/Medications Diet: Renal Activity: No Restrictions, As Tolerated Follow Up/Referral: PCP in 7 days Medications: same home medications Discharge Statement: "Patient was advised to return to the ER or call 911 if any headaches, dizziness, shortness of breath, chest pain, abdominal pain, bleeding, fevers, or worsening of medical condition. Patient was counseled about treatment plan, medications, possible side effects, patientverbalized understanding. All questions were answered to the best of my ability. This discharge took greater then 30 minutes in planning, reviewing documentation, counseling the patient, and discussing with other team members." ASSESSMENT ASSESSMENT Assessment Hypertensive urgency Fluid overload Date of Service: August 04, 2024 Billing Provider: HILDA MURPHY MD Common Visit Codes: 74479-JXB/OBS DISCH DAY >30min HILDA MURPHY MD August 04, 2024 17:48
== END 2024-08-04 18:06 | disposition home or self-care (01) | DRG 194 ==
LOC: ER 18:56 → OVERFLOW 23:24 → CENTRAL 08-03 22:12
PROVIDERS: ADMIT Hospitalist; ATTEND Hospitalist
PROC: 5A1D70Z Performance of Urinary Filtration, Intermittent, Less than 6 Hours Per Day (ICD-10-PCS; principal; 2024-08-03)
DX: I13.2 Hypertensive heart and chronic kidney disease with heart failure and with stage 5 chronic kidney disease, or end stage renal disease (principal); N18.6 End stage renal disease; I42.7 Cardiomyopathy due to drug and external agent; E11.22 Type 2 diabetes mellitus with diabetic chronic kidney disease; B95.62 Methicillin resistant Staphylococcus aureus infection as the cause of diseases classified elsewhere; G40.909 Epilepsy, unspecified, not intractable, without status epilepticus; I48.0 Paroxysmal atrial fibrillation; E55.9 Vitamin D deficiency, unspecified; I50.23 Acute on chronic systolic (congestive) heart failure; E78.5 Hyperlipidemia, unspecified; I16.1 Hypertensive emergency; F20.9 Schizophrenia, unspecified; F19.10 Other psychoactive substance abuse, uncomplicated; Z99.2 Dependence on renal dialysis; T50.995A Adverse effect of other drugs, medicaments and biological substances, initial encounter; Z79.4 Long term (current) use of insulin; Z79.899 Other long term (current) drug therapy; Z91.199 Patient's noncompliance with other medical treatment and regimen due to unspecified reason; Z88.1 Allergy status to other antibiotic agents; Z88.0 Allergy status to penicillin; Y92.89 Other specified places as the place of occurrence of the external cause; Z96.642 Presence of left artificial hip joint; F15.10 Other stimulant abuse, uncomplicated
CPT/HCPCS: 36415; 70450; 71045; 80048; 80053; 82140; 83880; 84484; 85025; 87081; 90935; G0378; J2405

== ENCOUNTER 2024-08-06 02:23 | Inpatient (IN) | payer MEDICAID ==
[~2024-08-06] VITALS: Ht 182.9 cm; Wt 89.4 kg
--- NOTE | 2024-08-06 02:42 | ED.PDOC ---
History of Present Illness HPI Comments 53-year-old male who came to ER via EMS for headaches. Just discharged here yesterday and was diagnosed with 1. Acute on chronic HFrEF ejection fraction 40%, 2. 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 UDS positive for methamphetamine, 4. Paroxysmal atrial fibrillation, currently sinus rhythm, 5. ESRD on hemodialysis, 6. Diabetes mellitus type 2 insulin dependent, 7. Hypertensive emergency, 8. Seizure, 9. Schizophrenia, 10. Medication non adherent. Patient got his dialysis last night at 8:00 p.m., and since then patient has been complaining of frontal headaches, constant, nonradiating, associated with nausea and vomiting and photophobia. Blood pressure upon arrival was 208/105 mmHg Time Seen by MD: 02:32 Primary Care Provider: unknown Allergies: Coded Allergies: Erythromycin (Verified Allergy, Unknown, 04/17/24) Penicillins (Verified Allergy, Unknown, 04/17/24) Home Meds Active Scripts Hydralazine Hcl (Hydralazine Hcl) 25 Mg Tab, 25 MG PO TID for 90 Days, #270 TAB Prov:MYRIAM CORNELIUS MD 08/06/24 Hydrocodone-Acetaminophen (Hydrocodone Bitartrate/AC 5-325 mg) 1 Tab Tab, 1 TAB PO Q6HP PRN, #20 TAB Prov:MYRIAM CORNELIUS MD 08/06/24 Isosorbide Dinitrate (Isosorbide Dinitrate) 10 Mg Tab, 20 MG PO TID@06,12,18 for 30 Days, #30 TAB Prov:JOSEF NUNN 07/30/24 Hydralazine HCl (Hydralazine HCl) 25 Mg Tab, 25 MG PO Q8HR for 30 Days, #90 TAB Prov:JOSEF NUNN 07/30/24 Carvedilol (COREG) 12.5 Mg Tab, 12.5 MG PO Q12HR for 30 Days, #60 TAB Prov:JOSEF NUNN 07/30/24 Apixaban Base (ELIQUIS) 2.5 Mg Tab, 2.5 MG PO BID for 30 Days, #60 TAB Prov:JOSEF NUNN 07/30/24 Atorvastatin Calcium (Lipitor) 40 Mg Tab, 40 MG PO DAILY for 40 Days, #40 TAB Prov:JOSEF NUNN 07/30/24 Reported Medications Quetiapine Fumerate (QUETIAPINE FUMARATE) 50 Mg Tab, 1 TAB PO 06/07/24 Bumetanide (Bumetanide) 1 Mg Tab, 1 TAB PO DAILY 06/07/24 Levetiracetam (Levetiracetam) 1,000 Mg Tab, 1 TAB PO BID 06/07/24 Insulin Lispro (Insulin Lispro Thai Kwi) 100 Unit/Ml Inj 06/07/24 Olopatadine HCl (Olopatadine Hydrochloride) 0.1 % Melchor, 1 DROP LEFTEYE BID 06/07/24 Discontinued Reported Medications Amlodipine Besylate (Amlodipine Besylate) 5 Mg Tab, 1 TAB PO DAILY 06/07/24 Apixaban Base (ELIQUIS) 5 Mg Tab, PO 06/07/24 Metoprolol Succinate (Metoprolol Succinate Er) 50 Mg Tab, 1 TAB PO DAILY 06/07/24 Past Medical History PAST MEDICAL HISTORY: AFIB, CHF, DM, ESRD, High Lipids, HTN, Schizophrenia, Seizures Family History Family History: Reviewed,noncontributory to illness, Unknown Social History Smoker: Non-Smoker Alcohol: Denies ETOH Use Drugs: Unknown Lives In: Home Constitutional: denies: chills, diaphoresis, fatigue, fever, malaise, sweats, weakness, others EENTM: reports: eye pain; denies: blurred vision, double vision, ear bleeding, ear discharge, ear drainage, ear pain, ear ringing, eye redness, hearing loss, mouth pain, mouth swelling, nasal discharge, nose bleeding, nose congestion, nose pain, photophobia, tearing, throat pain, throat swelling, voice changes, others Respiratory: denies: cough, hemoptysis, orthopnea, SOB at rest, shortness of breath, SOB with excertion, stridor, wheezing, others Cardiovascular: denies: chest pain, dizzy spells, diaphoresis, Dyspnea on exertion, edema, irregular heart beat, left arm pain, lightheadedness, palpitations, PND, syncope, others Gastrointestinal: reports: nausea, vomiting; denies: abdomen distended, abdominal pain, blood streaked bowels, constipated, diarrhea, dysphagia, difficulty swallowing, hematemesis, melena, poor appetite, poor fluid intake, rectal bleeding, rectal pain, others Genitourinary: denies: burning, dysuria, flank pain, frequency, hematuria, incontinence, penile discharge, penile sore, pain, testicle pain, testicle swelling, urgency, others Neurological: reports: headache; denies: dizziness, fainting, left sided numbness, left sided weakness, numbness, paresthesia, pre-existing deficit, right sided numbness, right sided weakness, seizure, speech problems, tingling, tremors, weakness, others Musculoskeletal: denies: back pain, gout, joint pain, joint swelling, muscle pain, muscle stiffness, neck pain, others Integumetry: denies: bruises, change in color, change in hair/nails, dryness, laceration, lesions, lumps, rash, wounds, others Allergic/Immunocompromised: denies: Difficulty Healing, Frequent Infections, Hives, Itching, others Hematologic/Lymphatic: denies: anemia, blood clots, easy bleeding, easy bruising, swollen glands, others Endocrine: denies: excessive hunger, excessive sweating, excessive thirst, excessive urination, flushing, intolerance to cold, intolerance to heat, unexplained weight gain, unexplained weight loss, others Psychiatric: denies: anxiety, bipolar disorder, depression, hopeless, panic disorder, schizophrenia, sleepless, suicidal, others Physical Exam General Appearance: No Apparent Distress, Normal HEENT: Normal ENT Inspection, Pharynx Normal, TMs Normal Neck: Full Range of Motion, Non-Tender, Normal, Normal Inspection Respiratory: Chest Non-Tender, Lungs Clear, No Accessory Muscle Use, No Respiratory Distress, Normal Breath Sounds Cardiovascular: No Edema, No JVD, No Murmur, No Gallop, Normal Peripheral Pulses, Regular Rate/Rhythm Breast Exam: Deferred Gastrointestinal: No Organomegaly, Non Tender, No Pulsatile Mass, Normal Bowel Sounds, Soft Genitalia: Deferred Pelvic: Deferred Rectal: Deferred Extremities: No calf tenderness, Normal capillary refill, Normal inspection, Normal range of motion, Non-tender, No pedal edema Musculoskeletal : Apperance: Normal Neurologic: Alert, ditch cleaner II-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 Was a procedure done?: No Differential Dx Considerations may include: Hypertensive urgency, migraine headaches, CHF, ESRD X-Ray, Labs, Meds, VS Vital Signs Date Time Temp Pulse Resp B/P (MAP) Pulse Ox O2 Delivery O2 Flow Rate FiO2 08/06/24 09:00 63 16 188/89 (122) 97 08/06/24 08:00 97.6 88 15 174/113 (133) 94 97.6 08/06/24 08:00 88 15 94 Room Air* 0 21 08/06/24 06:53 88 13 162/84 08/06/24 06:53 82 17 162/84 (110) 95 08/06/24 06:32 209/85 08/06/24 06:25 180/105 08/06/24 06:23 78 13 180/105 08/06/24 06:00 86 14 180/105 (130) 95 08/06/24 05:32 190/86 08/06/24 05:03 76 12 169/100 (123) 98 08/06/24 03:56 78 10 181/92 (121) 97 08/06/24 03:33 86 16 97 Room Air* 0 21 08/06/24 03:30 77 12 181/92 08/06/24 03:00 80 17 201/99 08/06/24 03:00 97.7 87 13 201/99 (133) 95 97.7 08/06/24 02:23 98.4 88 14 208/105 (139) 98 98.4 Lab Test 08/06/24 09:14 08/06/24 02:45 Range/Units Urine Color Yellow Yellow Urine Clarity Clear Clear Urine pH 8.0 5.0-9.0 Urine Specific [place] 1.007 1.001-1.035 Urine Protein 3+ H Negative Urine Ketones Negative Negative Urine Blood 1+ H Negative /uL Urine Nitrite Negative Negative Urine Bilirubin Negative Negative Urine Urobilinogen Normal Negative mg/dL Urine Leukocyte Esterase Negative Negative /uL Urine RBC 4 0 - 3 /hpf Urine Microscopic WBC 2 0-3 /HPF Urine Squamous Epithelial Cells None seen <5 /hpf Urine Bacteria None seen None Seen /hpf Urine Glucose 3+ H Normal mg/dL White Blood Count 8.3 4.4-10.8 10^3/uL Red Blood Count 3.77 L 4.5-5.90 10^6/uL Hemoglobin 11.2 L 13.5-17.5 g/dL Hematocrit 32.7 #L 41.0-53.0 % Mean Corpuscular Volume 86.9 80.0-100.0 fL Mean Corpuscular Hemoglobin 29.7 28.0-32.0 pg Mean Corpuscular Hemoglobin Concent 34.2 32.0-36.0 g/dL Red Cell Distribution Width 14.3 11.8-14.3 % Platelet Count 307 140-450 10^3/uL Mean Platelet Volume 7.1 6.9-10.8 fL Neutrophils (%) (Auto) 67.4 37.0-80.0 % Lymphocytes (%) (Auto) 20.5 10.0-50.0 % Monocytes (%) (Auto) 9.2 0.0-12.0 % Eosinophils (%) (Auto) 2.4 0.0-7.0 % Basophils (%) (Auto) 0.5 0.0-2.0 % Neutrophils # (Auto) 5.6 1.6-8.6 10 ^3/uL Lymphocytes # (Auto) 1.7 0.4-5.4 10 ^3/uL Monocytes # (Auto) 0.8 0-1.3 10 ^3/uL Eosinophils # (Auto) 0.2 0-0.8 10 ^3/uL Basophils # (Auto) 0 0-0.2 10 ^3/uL Nucleated Red Blood Cells 0.0 % Sodium Level 140 136-145 mmol/L Potassium Level 4.3 3.5-5.1 mmol/L Chloride Level 102 98-107 mmol/L Carbon Dioxide Level 27 20-31 mmol/L Anion Gap 11 5-15 Blood Urea Nitrogen 37 H 9-23 mg/dL Creatinine 5.96 H 0.700-1.30 mg/dL Glomerular Filtration Rate Calc 11 >90 mL/min BUN/Creatinine Ratio 6.2 L 10.0-20.0 Serum Glucose 179 H 74-106 mg/dL Calcium Level 9.1 8.7-10.4 mg/dL Magnesium Level 1.7 1.6-2.6 mg/dL Total Bilirubin 0.2 0.2-1.0 mg/dL Aspartate Amino Transferase (AST) 12 L 13-40 U/L Alanine Aminotransferase (ALT) 9 7-40 U/L Alkaline Phosphatase 106 46-116 U/L Total Protein 6.8 5.7-8.2 g/dL Albumin 4.3 3.2-4.8 g/dL Current Medications Medications (Trade) Dose Ordered Sig/Misty Route Start Time Stop Time Status Last Admin Hydromorphone HCl (Dilaudid Injection) 1 mg ONCE ONCE IM 08/06/24 02:45 08/06/24 02:46 DC 08/06/24 03:00 Diphenhydramine HCl (Benadryl Injection) 25 mg ONCE ONCE IM 08/06/24 02:45 08/06/24 02:46 DC 08/06/24 02:59 Clonidine HCl (Catapres Tablet) 0.2 mg ONCE ONCE PO 08/06/24 05:30 08/06/24 05:31 DC 08/06/24 05:32 Hydralazine HCl (Apresoline Injection) 20 mg ONCE ONCE IV 08/06/24 06:15 08/06/24 06:16 DC 08/06/24 06:25 Morphine Sulfate 2 mg ONCE ONCE IV 08/06/24 06:15 08/06/24 06:16 DC 08/06/24 06:23 Ondansetron HCl (Zofran) 4 mg ONCE ONCE IV 08/06/24 06:15 08/06/24 06:16 DC 08/06/24 06:25 Lorazepam (Ativan Inj) 1 mg ONCE ONCE IV 08/06/24 09:30 08/06/24 09:31 DC 08/06/24 09:26 Ondansetron HCl (Zofran) 4 mg ONCE ONCE IV 08/06/24 09:30 08/06/24 09:31 DC 08/06/24 09:26 Constance Pablo: patient is a 53-year-old who is pending discharge from Dr. Cornelius. I was advised that patient is a dialysis patient with high blood pressure. H owever while in the ER patient's blood pressure continued to remain very high, and he continued to report headache and photophobia. unable to discharge the patient. Patient will require BP control. Patient has required multiple eval uations by myself for BP control. Hospitalist team contacted for admission. Time of 1ST Reevaluation: 02:41 Reevaluation 1ST: Unchanged Patient Education/Counseling: Diagnosis, Treatment Family Education/Counseling: No Family Present Departure 1 Departure Time of Disposition: 07:30 Impression: Primary Impression: Hypertensive emergency Additional Impressions: End stage renal disease on dialysis Headache Disposition: 09 ADMITTED INPATIENT Condition: Guarded e-Prescriptions Hydralazine Hcl (Hydralazine Hcl) 25 Mg Tab 25 MG PO TID for 90 Days, #270 TAB Prov: MYRIAM CORNELIUS MD 08/06/24 Hydrocodone-Acetaminophen (Hydrocodone Bitartrate/AC 5-325 mg) 1 Tab Tab 1 TAB PO Q6HP PRN, #20 TAB Prov: MYRIAM CORNELIUS MD 08/06/24 Discharged With: Self Critical Care Note Critical Care Time?: Yes (35 min-critical care time only) Critical care comment: Hypertensive urgency Stability Stability form required: No Heart Score Heart Score: Heart Score Response (Comments) Value History N/A 0 EKG N/A 0 Age N/A 0 Risk Factors N/A 0 Troponin N/A 0 Total 0 I personally scribed for MYRIAM CORNELIUS MD ([email or web address]) on 08/06/24 at 02:42. Electronically submitted by Nabeel Merino ([email or web address]). MYRIAM CORNELIUS MD August 06, 2024 02:42 DARÍO MITCHELL MD August 06, 2024 10:55
[2024-08-06 02:58] LABS: Basophils # (auto) 0 10 ^3/uL (0-0.2); Basophils % (auto) 0.5 % (0.0-2.0); Eosinophils # (auto) 0.2 10 ^3/uL (0-0.8); Eosinophils % (auto) 2.4 % (0.0-7.0); Hematocrit 32.7 % (41.0-53.0); Hemoglobin 11.2 g/dL (13.5-17.5); Lymphocytes # (auto) 1.7 10 ^3/uL (0.4-5.4); Lymphocytes % (auto) 20.5 % (10.0-50.0); Mean Corpuscular Hemoglobin 29.7 pg (28.0-32.0); Mean Corpuscular Hgb Conc. 34.2 g/dL (32.0-36.0); Mean Corpuscular Volume 86.9 fL (80.0-100.0); Monocytes # (auto) 0.8 10 ^3/uL (0-1.3); Monocytes % (auto) 9.2 % (0.0-12.0); Neutrophils # (auto) 5.6 10 ^3/uL (1.6-8.6); Neutrophils % (auto) 67.4 % (37.0-80.0); Platelet Count (auto) 307 10^3/uL (140-450); Red Blood Cells 3.77 10^6/uL (4.5-5.90); Red Cell Distribution Width 14.3 % (11.8-14.3); White Blood Cell 8.3 10^3/uL (4.4-10.8)
[2024-08-06] MEDS: diphenhdrAMINE HCL 50 MG/1 ML VL IM ONE (02:59)
[2024-08-06] MEDS: HYDROmorphone HCL 2 MG/ML VL/or syr IM ONE (03:00)
[2024-08-06 03:10] LABS: Albumin 4.3 g/dL (3.2-4.8); Alkaline Phosphatase 106 U/L (46-116); Anion Gap 11 (5-15); BUN/Creatinine Ratio 6.2 (10.0-20.0); Calcium 9.1 mg/dL (8.7-10.4); Carbon Dioxide 27 mmol/L (20-31); Chloride 102 mmol/L (98-107); Magnesium 1.7 mg/dL (1.6-2.6); Potassium 4.3 mmol/L (3.5-5.1); Sodium 140 mmol/L (136-145); Total Protein 6.8 g/dL (5.7-8.2)
[2024-08-06 03:26] LABS: Alanine Aminotransferase 9 U/L (7-40); Aspartate Aminotransferase 12 U/L (13-40); Bilirubin, Total 0.2 mg/dL (0.2-1.0); Blood Urea Nitrogen 37 mg/dL (9-23); Glucose 179 mg/dL (74-106)
[2024-08-06 03:33] VITALS: PULSE 86; RESP 16; O2SAT 97
[2024-08-06] MEDS: cloNIDine HCL 0.1 MG TAB PO ONE (05:32)
--- NOTE | 2024-08-06 05:51 | DVH ---
EXAM: CT HEAD WITHOUT CONTRAST INDICATION: severe headache TECHNIQUE: CT of the head without intravenous contrast. Radiation Dose Information: CT Dose: CTDI volume is 63 mGy. Dose-length product is 1241 mGy*cm The dose indicators for CT are the volume Computed Tomography (CT) Dose Index (CTDIvol) and the Dose Length Product (DLP), and are measured in units of mGy and mGy-cm, respectively. These indicators are not patient dose, but values generated from the CT scanner acquisition factors. The report includes radiation exposure data for exposures received during this examination. COMPARISON: CT HEAD WITHOUT CONTRAST on DOS: 08/01/24, CT HEAD WITHOUT CONTRAST on DOS: 07/28/24, CT HEA D WITHOUT CONTRAST on DOS: 06/08/24 FINDINGS: There is no evidence of acute intracranial hemorrhage, extra-axial collection, mass effect, midline s hift, herniation or hydrocephalus. The ventricles, sulci and cisterns are age appropriate. The bruno-white differentiation is intact. The visualized paranasal sinuses and mastoid air cells are clear. The surrounding soft tissues and osseous structures are unremarkable. IMPRESSION: 1. No acute intracranial abnormality.
[2024-08-06] MEDS ORDERED: HYDR-4902 PO (06:02)
[2024-08-06] MEDS ORDERED: HYDR25TA88 PO (06:02)
[2024-08-06] MEDS: MORPHINE SULFATE INJ 2 MG/ml SYRG IV ONE (06:23)
[2024-08-06] MEDS: ONDANSETRON HCL 4 MG/2 ML VIAL IV ONE ×2 (06:25→09:26)
[2024-08-06] MEDS: hydrALAZINE HCL 20 MG/ML VL IV ONE (06:25)
[2024-08-06 08:00] VITALS: PULSE 88; RESP 15; O2SAT 94
[2024-08-06 09:18] LABS: Urine Bacteria None Seen /hpf (None Seen)
[2024-08-06 09:25] LABS: Urine Blood 1+ /uL (Negative); Urine Clarity Clear (Clear); Urine Color Yellow (Yellow); Urine Protein, UAD 3+ (Negative); Urine Specific Gravity 1.007 (1.001-1.035); Urine Squamous Epithelial Cell None Seen /hpf (<5); Urine Urobilinogen Normal (Negative); Urine WBC 2 /HPF (0-3)
[2024-08-06] MEDS: LORazepam 2MG/ML-1ML VIAL IV ONE (09:26)
--- NOTE | 2024-08-06 09:59 | DVHHP2 ---
History of Present Illness Reason for Visit: Headache History of Present Illness Stu Goins is a 53-year-old male with past medical history of hypertension, hyperlipidemia, diabetes type 2, AFib, CHF, ESRD on HD (M/W/F), seizures, schizophrenia, glaucoma, and polysubstance abuse who presents to the ED with a headache that is sharp pressure-like and 10/10. Patient reports that the headache started yesterday when he was getting dialysis. Patient denies any chest pain, shortness of breath, fever, chills, lightheadedness, weakness, dizziness, abdominal pain, nausea vomiting, diarrhea, recent sick contacts, recent travels, recent trauma or injury, or recent ingestion of spoiled food. Upon examination patient very reluctant to answer questions and getting extremely anxious. Patient also reports that he had head surgery does not know when where or what they did. 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 Psych: Schizophrenia Renal/: Chronic renal failure Endocrine: Diabetes Past Medical History Glaucoma Past Surgical History: Other (Head surgery) Family History: Other (Both parents ) Smoke: <1 pack per day ALCOHOL: none Drugs: Other (Methamphetamine) Lives: with Family Domestic Violence: Neg Review of Systems Constitutional: Yes: Other Allergies: Coded Allergies: Erythromycin (Verified Allergy, Unknown, 04/17/24) Penicillins (Verified Allergy, Unknown, 04/17/24) Medications Current Medications Medications Dose Ordered Sig/Misty Route Start Time Stop Time Status Last Admin Dose Admin Diagnostic Test (Pha) 1 strip ACHS 08/06/24 11:30 UNV Insulin Human Regular ACHS SC 08/06/24 11:30 UNV Dextrose 50 ml UD PRN IV 08/06/24 10:00 UNV Acetaminophen/ Hydrocodone Bitart 1 tab Q4HP PRN PO 08/06/24 10:00 UNV Ondansetron HCl 4 mg Q4HP PRN IV 08/06/24 10:00 UNV Enoxaparin Sodium 40 mg DAILY SC 08/06/24 10:00 UNV Acetaminophen 650 mg Q6HP PRN PO 08/06/24 10:00 UNV Morphine Sulfate 2 mg Q4HPRN PRN IV 08/06/24 10:00 UNV Exam Vital Signs Vital Signs Date Time Temp Pulse Resp B/P (MAP) Pulse Ox O2 Delivery O2 Flow Rate FiO2 08/06/24 06:53 88 13 162/84 08/06/24 06:53 95 08/06/24 03:33 Room Air* 0 21 08/06/24 03:00 97.7 97.7 General Appearance: Alert, Oriented X3, Other (Anxiousness) HEENT: Atraumatic, PERRLA, EOMI Respiratory: Clear to auscultation, Normal air movement Cardiovascular: Regular rate, Normal S1, Normal S2 Abdominal: Normal bowel sounds Extremities: Normal pulses Neuro: Normal speech, Normal tone, Sensation intact Labs/Xrays Labs Test 08/06/24 09:14 08/06/24 02:45 Range/Units Urine Color Yellow Yellow Urine Clarity Clear Clear Urine pH 8.0 5.0-9.0 Urine Specific [place] 1.007 1.001-1.035 Urine Protein 3+ H Negative Urine Ketones Negative Negative Urine Blood 1+ H Negative /uL Urine Nitrite Negative Negative Urine Bilirubin Negative Negative Urine Urobilinogen Normal Negative mg/dL Urine Leukocyte Esterase Negative Negative /uL Urine RBC 4 0 - 3 /hpf Urine Microscopic WBC 2 0-3 /HPF Urine Squamous Epithelial Cells None seen <5 /hpf Urine Bacteria None seen None Seen /hpf Urine Glucose 3+ H Normal mg/dL White Blood Count 8.3 4.4-10.8 10^3/uL Red Blood Count 3.77 L 4.5-5.90 10^6/uL Hemoglobin 11.2 L 13.5-17.5 g/dL Hematocrit 32.7 #L 41.0-53.0 % Mean Corpuscular Volume 86.9 80.0-100.0 fL Mean Corpuscular Hemoglobin 29.7 28.0-32.0 pg Mean Corpuscular Hemoglobin Concent 34.2 32.0-36.0 g/dL Red Cell Distribution Width 14.3 11.8-14.3 % Platelet Count 307 140-450 10^3/uL Mean Platelet Volume 7.1 6.9-10.8 fL Neutrophils (%) (Auto) 67.4 37.0-80.0 % Lymphocytes (%) (Auto) 20.5 10.0-50.0 % Monocytes (%) (Auto) 9.2 0.0-12.0 % Eosinophils (%) (Auto) 2.4 0.0-7.0 % Basophils (%) (Auto) 0.5 0.0-2.0 % Neutrophils # (Auto) 5.6 1.6-8.6 10 ^3/uL Lymphocytes # (Auto) 1.7 0.4-5.4 10 ^3/uL Monocytes # (Auto) 0.8 0-1.3 10 ^3/uL Eosinophils # (Auto) 0.2 0-0.8 10 ^3/uL Basophils # (Auto) 0 0-0.2 10 ^3/uL Nucleated Red Blood Cells 0.0 % Sodium Level 140 136-145 mmol/L Potassium Level 4.3 3.5-5.1 mmol/L Chloride Level 102 98-107 mmol/L Carbon Dioxide Level 27 20-31 mmol/L Anion Gap 11 5-15 Blood Urea Nitrogen 37 H 9-23 mg/dL Creatinine 5.96 H 0.700-1.30 mg/dL Glomerular Filtration Rate Calc 11 >90 mL/min BUN/Creatinine Ratio 6.2 L 10.0-20.0 Serum Glucose 179 H 74-106 mg/dL Calcium Level 9.1 8.7-10.4 mg/dL Magnesium Level 1.7 1.6-2.6 mg/dL Total Bilirubin 0.2 0.2-1.0 mg/dL Aspartate Amino Transferase (AST) 12 L 13-40 U/L Alanine Aminotransferase (ALT) 9 7-40 U/L Alkaline Phosphatase 106 46-116 U/L Total Protein 6.8 5.7-8.2 g/dL Albumin 4.3 3.2-4.8 g/dL EXAM: CT HEAD WITHOUT CONTRAST INDICATION: severe headache TECHNIQUE: CT of the head without intravenous contrast. Radiation Dose Information: CT Dose: CTDI volume is 63 mGy. Dose-length product is 1241 mGy*cm The dose indicators for CT are the volume Computed Tomography (CT) Dose Index (C TDIvol) and the Dose Length Product (DLP), and are measured in units of mGy and mGy-cm, respectively. These indicators are not patient dose, but values generated from the CT scanner acquisition factors. The report includes radiation exposure data for exposures received during this examination. COMPARISON: CT HEAD WITHOUT CONTRAST on DOS: 08/01/24, CT HEAD WITHOUT CONTRAST on DOS: 07/28/24, CT HEAD WITHOUT CONTRAST on DOS: 06/08/24 FINDINGS: There is no evidence of acute intracranial hemorrhage, extra-axial collection, mass effect, midline shift, herniation or hydrocephalus. The ventricles, sulci and cisterns are age appropriate. The bruno-white differentiation is intact. The visualized paranasal sinuses and mastoid air cells are clear. The surrounding soft tissues and osseous structures are unremarkable. IMPRESSION: 1. No acute intracranial abnormality. Assessment/Plan Assessment/Plan Assessment Intractable headache Hypertensive urgency Anemia ESRD on HD (M/W/F) Tobacco use Methamphetamine use History of hypertension History of hyperlipidemia History of diabetes type 2 History of AFib History of CHF History of seizures History of schizophrenia History of glaucoma ?History of head surgery Plan Admit to med surge Strict I&Os Daily weights UA Antiemetics Pain management CT head noted Antihypertensives Mag level Hemoglobin A1c ISS and Accu-Cheks Diet Home medications reconciled DVT prophylaxis-Lovenox PUD prophylaxis-not indicated history of GERD or GI bleed Discussed plan of care with patient and nurse Nephro consult Psych consult Counseled patient on cessation of tobacco and methamphetamine use Plan discussed with: Patient My Orders Orders - 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 [facility] CONS 08/06/24 Transmitted -[place] 09:47 * Psychiatric Consult CONS 08/06/24 Transmitted 09:47 Glucose Blood PHA 08/06/24 Logged (Accu-Chek Comfort 11:30 Insulin R (Human) PHA 08/06/24 Logged (Insulin R) 11:30 Dextrose 50% Syringe PHA 08/06/24 Logged 10:00 Admit ADMIT 08/06/24 Transmitted 09:47 Allergies YOLY 08/06/24 In Process 09:47 Code Status CODE 08/06/24 Transmitted 09:47 Renal DIET 08/06/24 Transmitted Standard(2gna,3gk,Lopho) Lunch Hydrocodone-Acet PHA 08/06/24 Logged 5/325mg Tab ([place] 10:00 Ondansetron Hcl PHA 08/06/24 Logged (Zofran) 10:00 Enoxaparin Sodium PHA 08/06/24 Logged (Lovenox) 10:00 Complete Blood Count LAB 08/07/24 Verified 04:00 Comprehensive LAB 08/07/24 Verified Metabolic Panel 04:00 Acetaminophen Tablet PHA 08/06/24 Logged (Tylenol Tablet) 10:00 Morphine Sulfate PHA 08/06/24 Logged Injection 10:00 Date of Service: August 06, 2024 Billing Provider: MICHELLE PETERSEN Common Visit Codes: 03342-NAOETYL INP/OBS CARE (HIGH) MICHELLE PETERSEN August 06, 2024 09:59
[2024-08-06] MEDS ORDERED: DEXTROSE (50%) 50ML SYRG IV PRN (10:00)
[2024-08-06] MEDS: QUEtiapine FUMARATE 25 MG TAB PO SCH (11:43)
[2024-08-06] MEDS: levETIRAcetam 500 MG TAB PO SCH (11:44)
[2024-08-06] MEDS: BUMETANIDE 1 MG TAB PO SCH (11:44)
[2024-08-06] MEDS: APIXABAN 2.5 MG TAB PO SCH (11:45)
[2024-08-06] MEDS: CARVEDILOL 12.5 MG TAB PO SCH (11:45)
[2024-08-06] MEDS: ACCU-CHEK COMFORT CURVE STRIP VI SCH (11:49)
[2024-08-06] MEDS: InsuLIN REG 1unit/0.01ml Soln (100units/ml) SC SCH (11:53)
[2024-08-06] MEDS: ISOSORBIDE DINITRATE 10 MG TAB PO SCH (12:19)
[2024-08-06] MEDS: hydrALAZINE HCL 25 MG TAB PO SCH (14:01)
[2024-08-06] MEDS: hydrALAZINE HCL 20 MG/ML VL IV PRN (15:21)
[2024-08-06] MEDS: ONDANSETRON HCL 4 MG/2 ML VIAL IV PRN (15:31)
[2024-08-06] MEDS: MORPHINE SULFATE INJ 2 MG/ml SYRG IV PRN (15:32)
--- NOTE | 2024-08-06 16:13 | DVHINCON2 ---
Date of service: August 06, 2024 Reason for Consultation esrd History of Present Illness 53-year-old male with past medical history of hypertension, hyperlipidemia, diabetes type 2, AFib, CHF, ESRD on HD (M/W/F), seizures, schizophrenia, glaucoma, and polysubstance abuse who presents to the ED with a headache that is sharp pressure-like Patient has multiple admissions for the same complaints However he still continues to do methamphetamine abuse Patient is overall noncompliant Past Medical History As per HPI Allergies: Coded Allergies: Erythromycin (Verified Allergy, Unknown, 04/17/24) Penicillins (Verified Allergy, Unknown, 04/17/24) Home Meds Active Scripts Hydralazine Hcl (Hydralazine Hcl) 25 Mg Tab, 25 MG PO TID for 90 Days, #270 TAB Prov:MYRIAM CORNELIUS MD 08/06/24 Hydrocodone-Acetaminophen (Hydrocodone Bitartrate/AC 5-325 mg) 1 Tab Tab, 1 TAB PO Q6HP PRN, #20 TAB Prov:MYRIAM CORNELIUS MD 08/06/24 Isosorbide Dinitrate (Isosorbide Dinitrate) 10 Mg Tab, 20 MG PO TID@06,12,18 for 30 Days, #30 TAB Prov:JOSEF NUNN RESIDENT 07/30/24 Hydralazine HCl (Hydralazine HCl) 25 Mg Tab, 25 MG PO Q8HR for 30 Days, #90 TAB Prov:JOSEF NUNN RESIDENT 07/30/24 Carvedilol (COREG) 12.5 Mg Tab, 12.5 MG PO Q12HR for 30 Days, #60 TAB Prov:JOSEF NUNN 07/30/24 Apixaban Base (ELIQUIS) 2.5 Mg Tab, 2.5 MG PO BID for 30 Days, #60 TAB Prov:JOSEF NUNN 07/30/24 Atorvastatin Calcium (Lipitor) 40 Mg Tab, 40 MG PO DAILY for 40 Days, #40 TAB Prov:JOSEF NUNN RESIDENT 07/30/24 Reported Medications Quetiapine Fumerate (QUETIAPINE FUMARATE) 50 Mg Tab, 1 TAB PO 06/07/24 Bumetanide (Bumetanide) 1 Mg Tab, 1 TAB PO DAILY 06/07/24 Levetiracetam (Levetiracetam) 1,000 Mg Tab, 1 TAB PO BID 06/07/24 Insulin Lispro (Insulin Lispro Thai Kwi) 100 Unit/Ml Inj 06/07/24 Olopatadine HCl (Olopatadine Hydrochloride) 0.1 % Melchor, 1 DROP LEFTEYE BID 06/07/24 Discontinued Reported Medications Amlodipine Besylate (Amlodipine Besylate) 5 Mg Tab, 1 TAB PO DAILY 06/07/24 Apixaban Base (ELIQUIS) 5 Mg Tab, PO 06/07/24 Metoprolol Succinate (Metoprolol Succinate Er) 50 Mg Tab, 1 TAB PO DAILY 06/07/24 Current Medications Current Medications Medications (Trade) Dose Ordered Sig/Misty Route PRN Reason Start Time Stop Time Status Last Admin Diagnostic Test (Pha) (Accu-Chek Comfort Curve T) 1 strip ACHS 08/06/24 11:30 08/06/24 11:49 Insulin Human Regular (InsuLIN R) ACHS SC 08/06/24 11:30 08/06/24 11:53 Dextrose 50 ml UD PRN IV Blood Sugar LESS THAN 60 08/06/24 10:00 Acetaminophen/ Hydrocodone Bitart ([place] 5/325MG Tab) 1 tab Q4HP PRN PO MODERATE PAIN (4-6 PAIN SCALE) 08/06/24 10:00 Ondansetron HCl (Zofran) 4 mg Q4HP PRN IV NAUSEA / VOMITING 08/06/24 10:00 08/06/24 15:31 Enoxaparin Sodium (Lovenox) 30 mg DAILY SC 08/07/24 10:00 Acetaminophen (Tylenol Tablet) 650 mg Q6HP PRN PO PAIN SCALE 1-3 OR TEMP>100.4 08/06/24 10:00 Morphine Sulfate 2 mg Q4HPRN PRN IV SEVERE PAIN (7-10 PAIN SCALE) 08/06/24 10:00 08/06/24 15:32 Apixaban (Eliquis) 2.5 mg BID PO 08/06/24 10:00 08/06/24 11:45 Bumetanide (Bumex Tablet) 1 mg DAILY PO 08/06/24 10:00 08/06/24 11:44 Carvedilol (Coreg Tablet) 12.5 mg Q12HR PO 08/06/24 10:00 08/06/24 11:45 Hydralazine HCl (Apresoline Tablet) 25 mg Q8HR PO 08/06/24 14:00 08/06/24 14:01 Isosorbide Dinitrate (Isordil Tablet) 20 mg TID@06,12,18 PO 08/06/24 12:00 08/06/24 12:19 Atorvastatin Calcium (Lipitor) 40 mg HS PO 08/06/24 22:00 Levetiracetam (Keppra Tablet) 1,000 mg BID PO 08/06/24 10:12 08/06/24 11:44 Quetiapine Fumarate (SEROquel TABLET) 50 mg BID PO 08/06/24 10:00 08/06/24 11:43 Hydralazine HCl (Apresoline Injection) 10 mg Q6HP PRN IV SBP>150 08/06/24 12:15 08/06/24 15:21 Family History: Patient reports no known family medical history. Review of Systems Poor historian H&P Exam Vital Signs/I&O Vital Sign Date Time Temp Pulse Resp B/P (MAP) Pulse Ox O2 Delivery O2 Flow Rate FiO2 08/06/24 15:32 101 16 160/103 08/06/24 08:00 97.6 94 97.6 08/06/24 08:00 Room Air* 0 21 Physical Exam Patient is sleeping did not let physical exam Labs/Diagnostic Data Labs/Diagnostic Data Laboratory Tests Test 08/06/24 11:49 08/06/24 09:14 08/06/24 02:45 Range/Units POC Glucose 176 H 70-106 mg/dl Urine Color Yellow Yellow Urine Clarity Clear Clear Urine pH 8.0 5.0-9.0 Urine Specific [place] 1.007 1.001-1.035 Urine Protein 3+ H Negative Urine Ketones Negative Negative Urine Blood 1+ H Negative /uL Urine Nitrite Negative Negative Urine Bilirubin Negative Negative Urine Urobilinogen Normal Negative mg/dL Urine Leukocyte Esterase Negative Negative /uL Urine RBC 4 0 - 3 /hpf Urine Microscopic WBC 2 0-3 /HPF Urine Squamous Epithelial Cells None seen <5 /hpf Urine Bacteria None seen None Seen /hpf Urine Glucose 3+ H Normal mg/dL White Blood Count 8.3 4.4-10.8 10^3/uL Red Blood Count 3.77 L 4.5-5.90 10^6/uL Hemoglobin 11.2 L 13.5-17.5 g/dL Hematocrit 32.7 #L 41.0-53.0 % Mean Corpuscular Volume 86.9 80.0-100.0 fL Mean Corpuscular Hemoglobin 29.7 28.0-32.0 pg Mean Corpuscular Hemoglobin Concent 34.2 32.0-36.0 g/dL Red Cell Distribution Width 14.3 11.8-14.3 % Platelet Count 307 140-450 10^3/uL Mean Platelet Volume 7.1 6.9-10.8 fL Neutrophils (%) (Auto) 67.4 37.0-80.0 % Lymphocytes (%) (Auto) 20.5 10.0-50.0 % Monocytes (%) (Auto) 9.2 0.0-12.0 % Eosinophils (%) (Auto) 2.4 0.0-7.0 % Basophils (%) (Auto) 0.5 0.0-2.0 % Neutrophils # (Auto) 5.6 1.6-8.6 10 ^3/uL Lymphocytes # (Auto) 1.7 0.4-5.4 10 ^3/uL Monocytes # (Auto) 0.8 0-1.3 10 ^3/uL Eosinophils # (Auto) 0.2 0-0.8 10 ^3/uL Basophils # (Auto) 0 0-0.2 10 ^3/uL Nucleated Red Blood Cells 0.0 % Sodium Level 140 136-145 mmol/L Potassium Level 4.3 3.5-5.1 mmol/L Chloride Level 102 98-107 mmol/L Carbon Dioxide Level 27 20-31 mmol/L Anion Gap 11 5-15 Blood Urea Nitrogen 37 H 9-23 mg/dL Creatinine 5.96 H 0.700-1.30 mg/dL Glomerular Filtration Rate Calc 11 >90 mL/min BUN/Creatinine Ratio 6.2 L 10.0-20.0 Serum Glucose 179 H 74-106 mg/dL Calcium Level 9.1 8.7-10.4 mg/dL Magnesium Level 1.7 1.6-2.6 mg/dL Total Bilirubin 0.2 0.2-1.0 mg/dL Aspartate Amino Transferase (AST) 12 L 13-40 U/L Alanine Aminotransferase (ALT) 9 7-40 U/L Alkaline Phosphatase 106 46-116 U/L Total Protein 6.8 5.7-8.2 g/dL Albumin 4.3 3.2-4.8 g/dL Assessment ESRD on dialysis Hypertensive urgency Active methamphetamine abuse Diabetes Recommendations Dialysis will be on Thursday Rest of the management per hospitalist Patient comes here every week with same presentation however he is noncompliant with BP medications and he will not stop using drugs Plan discussed with: Patient SHAYY FERNANDES MD August 06, 2024 16:13
[2024-08-06 16:38] VITALS: BP 90/44; PULSE 86; RESP 19; TEMP 97.4; O2SAT 96
[2024-08-06 17:40] VITALS: PULSE 86; O2SAT 96
[2024-08-06 20:00] VITALS: PULSE 90; O2SAT 96
[2024-08-06 21:00] VITALS: BP 113/64; PULSE 85; RESP 17; TEMP 97.9; O2SAT 96
[2024-08-06] MEDS: ATORVASTATIN 20 MG TAB PO SCH (21:14)
[2024-08-07] VITALS (8 sets, daily range): BP systolic 101–139; BP diastolic 52–74; PULSE 84–97; RESP 17–19; TEMP 97.5–98.1; O2SAT 95–97
[2024-08-07 06:33] LABS: Basophils # (auto) 0 10 ^3/uL (0-0.2); Basophils % (auto) 0.7 % (0.0-2.0); Eosinophils # (auto) 0.2 10 ^3/uL (0-0.8); Eosinophils % (auto) 2.9 % (0.0-7.0); Hematocrit 32.5 % (41.0-53.0); Hemoglobin 11.1 g/dL (13.5-17.5); Lymphocytes # (auto) 2.4 10 ^3/uL (0.4-5.4); Lymphocytes % (auto) 37.4 % (10.0-50.0); Mean Corpuscular Hemoglobin 30.3 pg (28.0-32.0); Mean Corpuscular Hgb Conc. 34.2 g/dL (32.0-36.0); Mean Corpuscular Volume 88.6 fL (80.0-100.0); Monocytes # (auto) 0.5 10 ^3/uL (0-1.3); Monocytes % (auto) 7.8 % (0.0-12.0); Neutrophils # (auto) 3.3 10 ^3/uL (1.6-8.6); Neutrophils % (auto) 51.2 % (37.0-80.0); Nucleated Red Blood Cells % 0.1 %; Platelet Count (auto) 292 10^3/uL (140-450); Red Blood Cells 3.67 10^6/uL (4.5-5.90); Red Cell Distribution Width 14.3 % (11.8-14.3); White Blood Cell 6.5 10^3/uL (4.4-10.8)
[2024-08-07 06:44] LABS: Alanine Aminotransferase 12 U/L (7-40); Albumin 3.9 g/dL (3.2-4.8); Alkaline Phosphatase 97 U/L (46-116); Anion Gap 12 (5-15); BUN/Creatinine Ratio 5.6 (10.0-20.0); Calcium 10.1 mg/dL (8.7-10.4); Carbon Dioxide 25 mmol/L (20-31); Chloride 104 mmol/L (98-107); Sodium 141 mmol/L (136-145); Total Protein 6.4 g/dL (5.7-8.2)
[2024-08-07 06:50] LABS: Blood Urea Nitrogen 39 mg/dL (9-23); Glucose 122 mg/dL (74-106)
[2024-08-07 06:51] LABS: Aspartate Aminotransferase 13 U/L (13-40); Bilirubin, Total 0.3 mg/dL (0.2-1.0)
[2024-08-07] MEDS: ENOXAPARIN SOD 30 MG/0.3 ML SYRINGE SC SCH (10:21)
[2024-08-07] MEDS: ACETAMINOPHEN 325 MG TAB PO PRN (10:22)
--- NOTE | 2024-08-07 13:52 | DVHPN2 ---
Progress Note Date Seen: August 07, 2024 Medical Necessity Reason Pt with a Central, PICC or Fol: No Subjective Patient reports: Other (poor historian) Review of Systems: Deferred Objective vital signs Vital Sign Date Time Temp Pulse Resp B/P (MAP) Pulse Ox O2 Delivery O2 Flow Rate FiO2 08/07/24 13:18 97.9 97 18 102/52 (69) 97 97.9 08/06/24 20:00 Room Air* 0 21 Total Intake and Output 08/06/24 08/06/24 08/07/24 15:00 23:00 07:00 Intake Total 220 ml 0 ml 380 ml Output Total 1050 ml 650 ml 0 ml Balance -830 ml -650 ml 380 ml medications Current Medications Medications Dose Ordered Sig/Misty Route Start Time Stop Time Status Last Admin Dose Admin Diagnostic Test (Pha) 1 strip ACHS 08/06/24 11:30 08/07/24 11:30 1 STRIP Insulin Human Regular ACHS SC 08/06/24 11:30 08/07/24 12:08 4 UNITS Dextrose 50 ml UD PRN IV 08/06/24 10:00 Acetaminophen/ Hydrocodone Bitart 1 tab Q4HP PRN PO 08/06/24 10:00 Ondansetron HCl 4 mg Q4HP PRN IV 08/06/24 10:00 08/07/24 10:21 4 MG Enoxaparin Sodium 30 mg DAILY SC 08/07/24 10:00 08/07/24 10:21 30 MG Acetaminophen 650 mg Q6HP PRN PO 08/06/24 10:00 08/07/24 10:22 650 MG Morphine Sulfate 2 mg Q4HPRN PRN IV 08/06/24 10:00 08/06/24 15:32 2 MG Apixaban 2.5 mg BID PO 08/06/24 10:00 08/07/24 10:21 2.5 MG Bumetanide 1 mg DAILY PO 08/06/24 10:00 08/06/24 11:44 1 MG Carvedilol 12.5 mg Q12HR PO 08/06/24 10:00 08/06/24 11:45 12.5 MG Hydralazine HCl 25 mg Q8HR PO 08/06/24 14:00 08/06/24 14:01 25 MG Isosorbide Dinitrate 20 mg TID@06,12,18 PO 08/06/24 12:00 08/07/24 06:15 20 MG Atorvastatin Calcium 40 mg HS PO 08/06/24 22:00 08/06/24 21:14 40 MG Levetiracetam 1,000 mg BID PO 08/06/24 10:12 08/07/24 10:22 1,000 MG Quetiapine Fumarate 50 mg BID PO 08/06/24 10:00 08/07/24 10:21 50 MG Hydralazine HCl 10 mg Q6HP PRN IV 08/06/24 12:15 08/06/24 15:21 10 MG laboratory and microbiology Laboratory Tests 08/07/24 04:42 Test 08/07/24 04:42 Range/Units Serum Glucose 122 H 74-106 mg/dL Problem List/Assessment/Plan Problem List/Assessment/Plan ESRD on dialysis Hypertensive urgency Active methamphetamine abuse Diabetes Recommendations Dialysis will be on Thursday Rest of the management per hospitalist Patient comes here every week with same presentation however he is noncompliant with BP medications and he will not stop using drugs Plan discussed with: Patient SHAYY FERNANDES MD August 07, 2024 13:52
--- NOTE | 2024-08-07 14:10 | DVHPN2 ---
Subjective in bed resting Changes from previous H/P or p: No Changes Objective Vitals Vital Signs Date Time Temp Pulse Resp B/P (MAP) Pulse Ox O2 Delivery O2 Flow Rate FiO2 08/07/24 13:18 97.9 97 18 102/52 (69) 97 97.9 08/06/24 20:00 Room Air* 0 21 Intake/Output Intake and Output 08/07/24 07:00 Intake Total 600 ml Output Total 1700 ml Balance -1100 ml Intake Oral 600 ml Output Urine Total 1700 ml General Appearance: Alert, Oriented X3 Lungs: Clear to auscultation Cardiovascular: Regular rate, Normal S1, Normal S2 Abdomen: Normal bowel sounds Medications Current Medications Medications Dose Ordered Sig/Misty Route Start Time Stop Time Status Last Admin Dose Admin Diagnostic Test (Pha) 1 strip ACHS 08/06/24 11:30 08/07/24 11:30 1 STRIP Insulin Human Regular ACHS SC 08/06/24 11:30 08/07/24 12:08 4 UNITS Dextrose 50 ml UD PRN IV 08/06/24 10:00 Acetaminophen/ Hydrocodone Bitart 1 tab Q4HP PRN PO 08/06/24 10:00 Ondansetron HCl 4 mg Q4HP PRN IV 08/06/24 10:00 08/07/24 10:21 4 MG Enoxaparin Sodium 30 mg DAILY SC 08/07/24 10:00 08/07/24 10:21 30 MG Acetaminophen 650 mg Q6HP PRN PO 08/06/24 10:00 08/07/24 10:22 650 MG Morphine Sulfate 2 mg Q4HPRN PRN IV 08/06/24 10:00 08/06/24 15:32 2 MG Apixaban 2.5 mg BID PO 08/06/24 10:00 08/07/24 10:21 2.5 MG Bumetanide 1 mg DAILY PO 08/06/24 10:00 08/06/24 11:44 1 MG Carvedilol 12.5 mg Q12HR PO 08/06/24 10:00 08/06/24 11:45 12.5 MG Hydralazine HCl 25 mg Q8HR PO 08/06/24 14:00 08/06/24 14:01 25 MG Isosorbide Dinitrate 20 mg TID@06,12,18 PO 08/06/24 12:00 08/07/24 06:15 20 MG Atorvastatin Calcium 40 mg HS PO 08/06/24 22:00 08/06/24 21:14 40 MG Levetiracetam 1,000 mg BID PO 08/06/24 10:12 08/07/24 10:22 1,000 MG Quetiapine Fumarate 50 mg BID PO 08/06/24 10:00 08/07/24 10:21 50 MG Hydralazine HCl 10 mg Q6HP PRN IV 08/06/24 12:15 08/06/24 15:21 10 MG Laboratory Results Laboratory Tests 08/07/24 04:42 Chemistry Test 08/07/24 04:42 Albumin 3.9 g/dL (3.2-4.8) Calcium Level 10.1 mg/dL (8.7-10.4) Total Protein 6.4 g/dL (5.7-8.2) LFT Test 08/07/24 04:42 Alanine Aminotransferase (ALT) 12 U/L (7-40) Alkaline Phosphatase 97 U/L (46-116) Aspartate Amino Transferase (AST) 13 U/L (13-40) Total Bilirubin 0.3 mg/dL (0.2-1.0) Urinalysis Test 08/06/24 09:14 Urine Color Yellow (Yellow) Urine Clarity Clear (Clear) Urine pH 8.0 (5.0-9.0) Urine Specific [place] 1.007 (1.001-1.035) Urine Protein 3+ (Negative) H Urine Ketones Negative (Negative) Urine Blood 1+ /uL (Negative) H Urine Nitrite Negative (Negative) Urine Bilirubin Negative (Negative) Urine Urobilinogen Normal mg/dL (Negative) Urine Leukocyte Esterase Negative /uL (Negative) Urine RBC 4 /hpf (0 - 3) Urine Microscopic WBC 2 /HPF (0-3) Urine Squamous Epithelial Cells None seen /hpf (<5) Urine Bacteria None seen /hpf (None Seen) Urine Glucose 3+ mg/dL (Normal) H Assessment/Plan Assessment/Plan Intractable headache Hypertensive urgency Anemia ESRD on HD (M/W/F) Tobacco use Methamphetamine use History of hypertension History of hyperlipidemia History of diabetes type 2 History of AFib History of CHF History of seizures History of schizophrenia History of glaucoma ?History of head surgery Nephrology consult for HD Continue home medications 4th admision this month and he is uncompliant with HD Plan discussed with: Patient Date of Service: August 07, 2024 Billing Provider: HILDA MURPHY MD Common Visit Codes: [id number] INP/OBS CARE(HIGH) HILDA MURPHY MD August 07, 2024 14:10
[2024-08-07] MEDS: HYDROcodone-ACET 5/325MG TAB PO PRN (21:12)
[2024-08-08 01:13] VITALS: BP 117/70; PULSE 83; RESP 19; TEMP 97.8; O2SAT 96
[2024-08-08 05:00] VITALS: BP 121/63; PULSE 86; RESP 19; TEMP 98; O2SAT 96
[2024-08-08 08:33] VITALS: BP 134/72; PULSE 80; RESP 18; TEMP 97.9; O2SAT 96
--- NOTE | 2024-08-08 10:26 | DVHPN2 ---
Progress Note Date Seen: August 08, 2024 Medical Necessity Reason Pt with a Central, PICC or Fol: No Subjective Patient reports: No new complaints Other Systems: Patient seen and examined by myself today in follow-up Patient examined hemodialysis, blood pressure stable Objective vital signs Vital Sign Date Time Temp Pulse Resp B/P (MAP) Pulse Ox O2 Delivery O2 Flow Rate FiO2 08/08/24 09:03 80 134/72 08/08/24 08:33 97.9 18 96 97.9 08/08/24 07:43 Room Air* 0 21 Total Intake and Output 08/07/24 08/07/24 08/08/24 15:00 23:00 07:00 Intake Total 725 ml 925 ml Output Total 400 ml 500 ml Balance 325 ml 425 ml medications Current Medications Medications Dose Ordered Sig/Misty Route Start Time Stop Time Status Last Admin Dose Admin Diagnostic Test (Pha) 1 strip ACHS 08/06/24 11:30 08/08/24 06:06 1 STRIP Insulin Human Regular ACHS SC 08/06/24 11:30 08/08/24 06:06 2 UNITS Dextrose 50 ml UD PRN IV 08/06/24 10:00 Acetaminophen/ Hydrocodone Bitart 1 tab Q4HP PRN PO 08/06/24 10:00 08/08/24 01:21 1 TAB Ondansetron HCl 4 mg Q4HP PRN IV 08/06/24 10:00 08/07/24 10:21 4 MG Enoxaparin Sodium 30 mg DAILY SC 08/07/24 10:00 08/08/24 09:01 30 MG Acetaminophen 650 mg Q6HP PRN PO 08/06/24 10:00 08/07/24 10:22 650 MG Morphine Sulfate 2 mg Q4HPRN PRN IV 08/06/24 10:00 08/06/24 15:32 2 MG Apixaban 2.5 mg BID PO 08/06/24 10:00 08/08/24 09:00 2.5 MG Bumetanide 1 mg DAILY PO 08/06/24 10:00 08/06/24 11:44 1 MG Carvedilol 12.5 mg Q12HR PO 08/06/24 10:00 08/07/24 21:13 12.5 MG Hydralazine HCl 25 mg Q8HR PO 08/06/24 14:00 08/07/24 21:12 25 MG Isosorbide Dinitrate 20 mg TID@,,18 PO 08/06/24 12:00 08/07/24 06:15 20 MG Atorvastatin Calcium 40 mg HS PO 08/06/24 22:00 08/07/24 21:11 40 MG Levetiracetam 1,000 mg BID PO 08/06/24 10:12 08/08/24 09:00 1,000 MG Quetiapine Fumarate 50 mg BID PO 08/06/24 10:00 08/08/24 09:01 50 MG Hydralazine HCl 10 mg Q6HP PRN IV 08/06/24 12:15 08/06/24 15:21 10 MG laboratory and microbiology Laboratory Tests 08/07/24 04:42 Test 08/07/24 04:42 Range/Units Serum Glucose 122 H 74-106 mg/dL Microbiology Date/Time Source Procedure Growth Status 08/07/24 01:15 Nose MRSA Screen - Final Methicillin Resistant S.aureus Complete Problem List/Assessment/Plan Problem List/Assessment/Plan ESRD on dialysis Hypertensive urgency Active methamphetamine abuse Diabetes mellitus type 2 Anemia of chronic kidney disease Recommendations Continue with UF to 3 L as tolerated Resume home medication Renal diet Blood pressure is better controlled We will continue to follow up Plan discussed with: Patient ARTEMIO DENNISON MD August 08, 2024 10:26
--- NOTE | 2024-08-08 11:16 | DVHDS2 ---
Discharge Summary Date of Admission August 06, 2024 at 09:47 Date of Discharge: August 08, 2024 Admitting Diagnosis Headache Labs/Diagnostic Data: Laboratory Results Test 08/08/24 10:58 08/07/24 04:42 08/06/24 09:14 08/06/24 02:45 POC Glucose 143 mg/dl (70-106) White Blood Count 6.5 10^3/uL (4.4-10.8) Red Blood Count 3.67 10^6/uL (4.5-5.90) Hemoglobin 11.1 g/dL (13.5-17.5) Hematocrit 32.5 % (41.0-53.0) Mean Corpuscular Volume 88.6 fL (80.0-100.0) Mean Corpuscular Hemoglobin 30.3 pg (28.0-32.0) Mean Corpuscular Hemoglobin Concent 34.2 g/dL (32.0-36.0) Red Cell Distribution Width 14.3 % (11.8-14.3) Platelet Count 292 10^3/uL (140-450) Mean Platelet Volume 7.1 fL (6.9-10.8) Neutrophils (%) (Auto) 51.2 % (37.0-80.0) Lymphocytes (%) (Auto) 37.4 % (10.0-50.0) Monocytes (%) (Auto) 7.8 % (0.0-12.0) Eosinophils (%) (Auto) 2.9 % (0.0-7.0) Basophils (%) (Auto) 0.7 % (0.0-2.0) Neutrophils # (Auto) 3.3 10 ^3/uL (1.6-8.6) Lymphocytes # (Auto) 2.4 10 ^3/uL (0.4-5.4) Monocytes # (Auto) 0.5 10 ^3/uL (0-1.3) Eosinophils # (Auto) 0.2 10 ^3/uL (0-0.8) Basophils # (Auto) 0 10 ^3/uL (0-0.2) Nucleated Red Blood Cells 0.1 % Sodium Level 141 mmol/L (136-145) Potassium Level 4.0 mmol/L (3.5-5.1) Chloride Level 104 mmol/L (98-107) Carbon Dioxide Level 25 mmol/L (20-31) Anion Gap 12 (5-15) Blood Urea Nitrogen 39 mg/dL (9-23) Creatinine 6.93 mg/dL (0.700-1.30) Glomerular Filtration Rate Calc 9 mL/min (>90) BUN/Creatinine Ratio 5.6 (10.0-20.0) Serum Glucose 122 mg/dL (74-106) Calcium Level 10.1 mg/dL (8.7-10.4) Total Bilirubin 0.3 mg/dL (0.2-1.0) Aspartate Amino Transferase (AST) 13 U/L (13-40) Alanine Aminotransferase (ALT) 12 U/L (7-40) Alkaline Phosphatase 97 U/L (46-116) Total Protein 6.4 g/dL (5.7-8.2) Albumin 3.9 g/dL (3.2-4.8) Urine Color Yellow (Yellow) Urine Clarity Clear (Clear) Urine pH 8.0 (5.0-9.0) Urine Specific [place] 1.007 (1.001-1.035) Urine Protein 3+ (Negative) Urine Ketones Negative (Negative) Urine Blood 1+ /uL (Negative) Urine Nitrite Negative (Negative) Urine Bilirubin Negative (Negative) Urine Urobilinogen Normal mg/dL (Negative) Urine Leukocyte Esterase Negative /uL (Negative) Urine RBC 4 /hpf (0 - 3) Urine Microscopic WBC 2 /HPF (0-3) Urine Squamous Epithelial Cells None seen /hpf (<5) Urine Bacteria None seen /hpf (None Seen) Urine Glucose 3+ mg/dL (Normal) Magnesium Level 1.7 mg/dL (1.6-2.6) Other Laboratory Tests 08/07/24 04:42 Brief Hx & Hospital Course: History of Present Illness Stu Goins is a 53-year-old male with past medical history of hypertension, hyperlipidemia, diabetes type 2, AFib, CHF, ESRD on HD (M/W/F), seizures, schizophrenia, glaucoma, and polysubstance abuse who presents to the ED with a headache that is sharp pressure-like and 10/10. Patient reports that the headache started yesterday when he was getting dialysis. Patient denies any chest pain, shortness of breath, fever, chills, lightheadedness, weakness, dizziness, abdominal pain, nausea vomiting, diarrhea, recent sick contacts, recent travels, recent trauma or injury, or recent ingestion of spoiled food. Upon examination patient very reluctant to answer questions and getting extremely anxious. Course of hospitalization: Nephrology consultation was obtained. Patient was started on antihypertensives, receiving hemodialysis while in the hospital. Blood pressure has normalized. CT scan of the head has been found to be unremarkable. Education was given to the patient regarding his findings and plan of care. Patient states that if he gets discharged he is going to come straight back in the hospital. When questioned why, the patient states because he has a headache. Discussion was made with the patient regarding treatment for headaches, in addition to a CT scan of the head being unremarkable. Headaches probably attributed to withdrawals from illicit drug use given the patient continues to use amphetamines, with noted positive UDS. Patient is instructed to take [id number] Tylenol for headache. He is instructed to follow up with his PCP as established hemodialysis chair time. All questions answered. Physical examination General: Alert and Oriented x3. No acute distress. Well-nourished. Eyes: EOMI. Anicteric. HENT: Moist mucous membranes. Lungs: Clear to auscultation bilaterally. No accessory muscle use. Cardiovascular: Regular rate and rhythm. No murmur. No JVD. Abdomen: Soft, non-tender and non-distended. No palpable masses. Extremities: No edema. Non-tender. Skin: No rashes or lesions. Warm. Neurologic: No focal neurological deficits. CN II-XII grossly intact, but not individually tested. Psychiatric: Cooperative. Appropriate mood and affect. Total time spent with patient discussing and formulating plan of care: 35 minutes. This medical document was created using an electronic medical record system with [employer] dictation system. Although this document has been carefully reviewed, there may still be some phonetic and typographical errors. These areas are purely typographical due to imperfections of the software programs, and do not reflect any compromise in the patient's medical care. Consults/Reason for consult Nephrology: ESRD with hemodialysis Condition at Discharge: Poor Final Diagnosis/Problems List Hypertensive crisis, headache, ESRD, illicit drug use Secondary diagnosis: Hypertensive urgency Anemia ESRD on HD (M/W/F) Tobacco use Methamphetamine use History of hypertension History of hyperlipidemia History of diabetes type 2 History of AFib History of CHF History of seizures History of schizophrenia History of glaucoma ?History of head surgery Discharge Disposition: Home Discharge Instruct/Medications Diet: Cardiac 2g Na,low cholest, Renal Activity: No Restrictions, As Tolerated Follow Up/Referral: Follow up with PCP in 1-2 weeks Follow up with established hemodialysis chair time Medications: Continue all home medications Tylenol 500 mg OTC for headaches 36 Discharge Statement: "Patient was advised to return to the ER or call 911 if any headaches, dizziness, shortness of breath, chest pain, abdominal pain, bleeding, fevers, or worsening of medical condition. Patient was counseled about treatment plan, medications, possible side effects, patientverbalized understanding. All questions were answered to the best of my ability. This discharge took greater then 30 minutes in planning, reviewing documentation, counseling the patient, and discussing with other team members." ASSESSMENT ASSESSMENT Assessment Hypertensive crisis, headache, ESRD, illicit drug use Date of Service: August 08, 2024 Billing Provider: ANIBAL VINES NP Common Visit Codes: 44805-IFC/OBS DISCH DAY >30min ANIBAL VINES NP August 08, 2024 11:16
[2024-08-08 12:40] VITALS: BP 132/81; PULSE 88; RESP 18; TEMP 97.8; O2SAT 96
== END 2024-08-08 15:07 | disposition home or self-care (01) | DRG 199 ==
LOC: EDBD 02:23 → ER 02:23 → OVERFLOW 09:47 → WEST WING 16:38
PROVIDERS: ADMIT Nurse Practitioner Acute Care; ATTEND Nurse Practitioner Acute Care
PROC: 5A1D70Z Performance of Urinary Filtration, Intermittent, Less than 6 Hours Per Day (ICD-10-PCS; principal; 2024-08-08)
DX: I16.0 Hypertensive urgency (principal); N18.6 End stage renal disease; E11.22 Type 2 diabetes mellitus with diabetic chronic kidney disease; D63.1 Anemia in chronic kidney disease; E78.5 Hyperlipidemia, unspecified; F15.10 Other stimulant abuse, uncomplicated; I13.2 Hypertensive heart and chronic kidney disease with heart failure and with stage 5 chronic kidney disease, or end stage renal disease; K21.9 Gastro-esophageal reflux disease without esophagitis; F20.9 Schizophrenia, unspecified; I48.0 Paroxysmal atrial fibrillation; I50.22 Chronic systolic (congestive) heart failure; Z99.2 Dependence on renal dialysis; Z88.1 Allergy status to other antibiotic agents; Z88.0 Allergy status to penicillin; Z79.4 Long term (current) use of insulin; Z91.199 Patient's noncompliance with other medical treatment and regimen due to unspecified reason; Z79.899 Other long term (current) drug therapy
CPT/HCPCS: 36415; 70450; 80053; 81001; 82962; 83735; 85025; 87081; 90935; 96372; 99291; G0378; J1815; J2405

== ENCOUNTER 2024-08-15 16:33 | Inpatient (IN) | payer MEDICAID ==
[~2024-08-15] VITALS: Ht 182.9 cm; Wt 92.6 kg
[~2024-08-15 16:33] MED LIST changes: +HYDR-4902 PO; +HYDR25TA88 PO; +LEVE750T3 PO
--- NOTE | 2024-08-15 17:03 | ED.PDOC ---
Barak. trauma (HPI) HPI Comments HPI: A 53-year-old male presents to the emergency department with a chief complaint of fall onset today (08/15/24). Patient was getting ready for dialysis, was standing when he fell, landing on Lt knee followed by LT side, states he hit his head, experienced LOC. He is currently experiencing LT knee pain, Lt shoulder pain, LT chest wall pain/ribcage anterior and posterior. Denies nausea, vomiting, diarrhea, shortness of breath, fever, chills. No other symptoms or modifying factors present at this time. Vitals Temperature: 97.3F Respiratory rate: 20 SpO2: 95% Heart rate: 108 Blood pressure: 102/82 Past Medical History: ESRD, a-fib, CHF, DM, HLD, HTN, schizophrenia, seizures Past Surgical History: denies Social History:denies NATHALIE: HPI: Poor Historian. REVIEW OF SYSTEMS: CONSTITUTIONAL: Denies acute: fever, diaphoresis, chills, HEAD: Denies acute: headache, photophobia Eyes: Denies acute: Double vision, vision loss, eye pain, eye discharge. EARS: Denies acute: tinnitus, hearing loss, ear discharge, ear pain, THROAT: Denies acute: sore throat, swelling, difficulty swallowing , pain with swallowing, change in voice. NECK: Denies acute: neck pain, neck swelling, stiff neck. HEART: Denies acute : palpitations, LUNGS: Denies acute: SOB, wheezing, cough, hemoptysis ABDOMEN: Denies acute: abdominal pain, Nausea, Vomiting, diarrhea, melena , hematemesis, hematochezia SKIN: Denies acute: rash, redness, lesions, itchiness. EXTREMITIES: Denies acute: calf pain, numbness, tingling, weakness, Denies acute: Low back pain. Neuro: Denies acute: focal neurological deficit, motor or sensory focal neurological deficit, tremors, seizure like activity, confusion, dizziness, change in mental status, loss of bowel or bladder function, cauda equina like symptoms. : Denies acute: dysuria, hematuria, flank pain, increase in urinary frequency. PSYCH: Denies acute: hallucination, suicidal ideation, homicidal ideation. PHYSICAL EXAM: General: ---hizx-gt-uhsnfciy-----acute distress, awake and alert. Head: normocephalic, atraumatic. Neck: supple, trachea is midline, no swelling. Throat: Normal phonation. 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 Heart: regular rate, regular rhythm, no significant murmur appreciated. Lungs: no apparent respiratory distress, Able to speak in full sentences. But has rib pain pain with breathing No wheezing, no rhonchi, no crackles. No stridors Clear to auscultation bilaterally. Abdomen: non tender to palpation, non distended, soft, no guarding, no rebound, + bowel sounds. Noted left anterior chest wall vascular dialysis catheter. Palpation of the left chest wall anterior and posterior is tender to palpation. No appreciated crepitus. No apparent deformity or bruising or contusion. Neuro: Awake, Alert, oriented to name, self, situation, follows commands GCS=15. Speech is normal. Skin: no petechia, no purpura, no cyanosis, non-pale, not jaundice. Lower extremities: --no - Pitting edema no deformity, no focal swelling, no calf TTP. Makes eye contact. moves all four extremities. Decreased range of motion in the left knee secondary to knee pain. Is minimal superficial abrasion on the anterior knee but no apparent swelling or deformity or erythema. The area is tender to palpation. Face: no apparent facial droop. ED COURSE: Chief Complaint: Fall Injury Time Seen by MD: 16:50 Primary Care Provider: AMA Red notes: Medications, Allergies Allergies: Coded Allergies: Erythromycin (Verified Allergy, Unknown, 04/17/24) Penicillins (Verified Allergy, Unknown, 04/17/24) Home Meds Active Scripts Hydralazine Hcl (Hydralazine Hcl) 25 Mg Tab, 25 MG PO TID for 90 Days, #270 TAB Prov:MYRIAM CORNELIUS MD 08/06/24 Hydrocodone-Acetaminophen (Hydrocodone Bitartrate/AC 5-325 mg) 1 Tab Tab, 1 TAB PO Q6HP PRN, #20 TAB Prov:MYRIAM CORNELIUS MD 08/06/24 Isosorbide Dinitrate (Isosorbide Dinitrate) 10 Mg Tab, 20 MG PO TID@06,12,18 for 30 Days, #30 TAB Prov:JOSEF NUNN RESIDENT 07/30/24 Hydralazine HCl (Hydralazine HCl) 25 Mg Tab, 25 MG PO Q8HR for 30 Days, #90 TAB Prov:JOSEF NUNN RESIDENT 07/30/24 Carvedilol (COREG) 12.5 Mg Tab, 12.5 MG PO Q12HR for 30 Days, #60 TAB Prov:JOSEF NUNN RESIDENT 07/30/24 Apixaban Base (ELIQUIS) 2.5 Mg Tab, 2.5 MG PO BID for 30 Days, #60 TAB Prov:JOSEF NUNN RESIDENT 07/30/24 Atorvastatin Calcium (Lipitor) 40 Mg Tab, 40 MG PO DAILY for 40 Days, #40 TAB Prov:JOSEF NUNN RESIDENT 07/30/24 Reported Medications Quetiapine Fumerate (QUETIAPINE FUMARATE) 50 Mg Tab, 1 TAB PO 06/07/24 Bumetanide (Bumetanide) 1 Mg Tab, 1 TAB PO DAILY 06/07/24 Levetiracetam (Levetiracetam) 1,000 Mg Tab, 1 TAB PO BID 06/07/24 Insulin Lispro (Insulin Lispro Thai Kwi) 100 Unit/Ml Inj 06/07/24 Olopatadine HCl (Olopatadine Hydrochloride) 0.1 % Melchor, 1 DROP LEFTEYE BID 06/07/24 Information Source: Patient Mode of Arrival: Ambulatory Severity: Moderate Timing: Hours Duration: Since onset Prehospital treatment: None Location: Chest (LT sided), Head, (L) Knee, (L) Shoulder Location of laceration: None Mechanism: Fall Past Medical History PAST MEDICAL HISTORY: AFIB, CHF, DM, ESRD, High Lipids, HTN, Schizophrenia, Seizures Surgical History: Denies all surgeries Family History Family History: Reviewed,noncontributory to illness, Unknown Social History Smoker: Non-Smoker Alcohol: Denies ETOH Use Drugs: Unknown Lives In: Home Was a procedure done? Was a procedure done?: No Differential Diagnosis Multiple Trauma: Closed Head Injury, Cardiac Injury, Fractures, Intraabdominal Injury, Pneumothorax, Cerebral Contusion, Pulmonary Contusion, Spine Injury, Tracheal Injury, Urological Injury, Vascular Injury, Abrasions, Contusion, Foreign Body, Hematoma, Laceration, Encephalopathy Neck Injury: Cervical Muscle Spasm, Cervical Sprain, Cervical Strain, Cervical Fracture, Spinal Cord Injury X-Ray, Labs, Meds, VS Vital Signs Date Time Temp Pulse Resp B/P (MAP) Pulse Ox O2 Delivery O2 Flow Rate FiO2 08/15/24 20:45 115 100/70 08/15/24 20:40 98.0 115 18 100/70 (80) 96 98.0 08/15/24 20:40 115 18 96 Room Air* 0 21 08/15/24 18:38 96 18 98 Room Air 08/15/24 18:38 97.7 96 18 111/86 (94) 99 97.7 08/15/24 16:42 97.3 108 20 102/82 (89) 95 97.3 Lab Test 08/15/24 20:48 08/15/24 18:05 Range/Units Urine Color Light-yellow Yellow Urine Clarity Clear Clear Urine pH 7.5 5.0-9.0 Urine Specific [place] 1.012 1.001-1.035 Urine Protein 3+ H Negative Urine Ketones Negative Negative Urine Blood Negative Negative /uL Urine Nitrite Negative Negative Urine Bilirubin Negative Negative Urine Urobilinogen Normal Negative mg/dL Urine Leukocyte Esterase Negative Negative /uL Urine RBC 1 0 - 3 /hpf Urine Microscopic WBC 4 H 0-3 /HPF Urine Squamous Epithelial Cells Few <5 /hpf Urine Bacteria None seen None Seen /hpf Urine Glucose 4+ H Normal mg/dL White Blood Count 6.5 4.4-10.8 10^3/uL Red Blood Count 3.97 L 4.5-5.90 10^6/uL Hemoglobin 12.0 L 13.5-17.5 g/dL Hematocrit 34.6 L 41.0-53.0 % Mean Corpuscular Volume 87.1 80.0-100.0 fL Mean Corpuscular Hemoglobin 30.3 28.0-32.0 pg Mean Corpuscular Hemoglobin Concent 34.8 32.0-36.0 g/dL Red Cell Distribution Width 13.9 11.8-14.3 % Platelet Count 300 140-450 10^3/uL Mean Platelet Volume 7.3 6.9-10.8 fL Neutrophils (%) (Auto) 52.4 37.0-80.0 % Lymphocytes (%) (Auto) 35.7 10.0-50.0 % Monocytes (%) (Auto) 8.4 0.0-12.0 % Eosinophils (%) (Auto) 2.9 0.0-7.0 % Basophils (%) (Auto) 0.6 0.0-2.0 % Neutrophils # (Auto) 3.4 1.6-8.6 10 ^3/uL Lymphocytes # (Auto) 2.3 0.4-5.4 10 ^3/uL Monocytes # (Auto) 0.5 0-1.3 10 ^3/uL Eosinophils # (Auto) 0.2 0-0.8 10 ^3/uL Basophils # (Auto) 0 0-0.2 10 ^3/uL Nucleated Red Blood Cells 0.1 % Sodium Level 138 136-145 mmol/L Potassium Level 4.0 3.5-5.1 mmol/L Chloride Level 100 98-107 mmol/L Carbon Dioxide Level 24 20-31 mmol/L Anion Gap 14 5-15 Blood Urea Nitrogen 41 H 9-23 mg/dL Creatinine 6.28 H 0.700-1.30 mg/dL Glomerular Filtration Rate Calc 10 >90 mL/min BUN/Creatinine Ratio 6.5 L 10.0-20.0 Serum Glucose 274 H 74-106 mg/dL Calcium Level 10.0 8.7-10.4 mg/dL Total Bilirubin < 0.2 L 0.2-1.0 mg/dL Aspartate Amino Transferase (AST) 11 L 13-40 U/L Alanine Aminotransferase (ALT) 12 7-40 U/L Alkaline Phosphatase 109 46-116 U/L B-Type Natriuretic Peptide 269.52 0-100 pg/mL Total Protein 6.7 5.7-8.2 g/dL Albumin 4.2 3.2-4.8 g/dL Current Medications Medications (Trade) Dose Ordered Sig/Misty Route Start Time Stop Time Status Last Admin Acetaminophen/ Hydrocodone Bitart ([place] 5/325MG Tab) 1 tab ONCE ONCE PO 08/15/24 18:30 08/15/24 18:50 DC 08/15/24 20:[address] [address] Ph: [phone] DIAGNOSTIC IMAGING Diagnostic Imaging Report : [id number] Signed PATIENT: ASHELY ZELAYA ACCT: [id number] UNIT: [id number] : 1970 LOC: ER ROOM / BED: / AGE / SEX: 53 / M ADM STATUS: REG ER SERVICE [id number] ORDERING PHYSICIAN: TATY LEAL DO PROCEDURE(s): HWOCT - HEAD WITHOUT CONTRAST REASON: fall ORDER NUMBER(s): [id number], ACCESSION NUMBER(s): [id number] Procedure: CT HEAD WITHOUT CONTRAST Study Date and Requested Time: 08/15/2024 05:21 PM History: fall Comparison: CT HEAD WITHOUT CONTRAST on DOS: 08/06/24, CT HEAD WITHOUT CONTRAST on DOS: 08/01/24, CT HEAD WITHOUT CONTRAST on DOS: 07/28/24 Dose: CTDI: 60.79 mGy DLP: 1076.24 mGycm Technique: Multiplanar images obtained through the brain without intravenous contrast. Findings: Mild diffuse brain atrophy. Mild chronic small vessel ischemic changes. Bilateral high convexity frontal lobe and bilateral thalamic chronic lacunar i nfarcts. No hemorrhages, masses, mass effect, midline shift, herniation or cytotoxic edema following a large vascular territory. No intra-axial or extra-axial fluid collections. No evidence of hydrocephalus. The basal cisterns are patent. The pituitary gland, sella and parasellar regions are unremarkable. The cerebellar tonsils are in normal position. The cerebellum is unremarkable. The orbits and globes are unremarkable. The paranasal sinuses and mastoids are clear. There are no worrisome calvarial lesions. Unchanged left fxdq-[id number]-hagd-right occipital parietal scalp edema / small hematoma. Impression: No evidence of acute intracranial abnormality. ATED BY: LAURA FLORENTINO DO DICTATED DATE/TIME: 08/15/241753 SIGNED BY: LAURA FLORENTINO DO SIGNED DATE/TIME: 08/15/241753 CC: [place] [id number] Ph: [phone] DIAGNOSTIC IMAGING Diagnostic Imaging Report : [id number] Signed PATIENT: ASHELY ZELAYA ACCT: [id number] UNIT: [id number] : 1970 LOC: ER ROOM / BED: / AGE / SEX: 53 / M ADM STATUS: REG ER SERVICE 47 ORDERING PHYSICIAN: TATY LEAL DO PROCEDURE(s): CS2 - CERVICAL WITHOUT CONTRAST REASON: fall ORDER NUMBER(s): [id number], ACCESSION NUMBER(s): [id number] EXAM: CT CERVICAL WITHOUT CONTRAST INDICATION: fall EXAM DATE: 08/15/2024 05:20 PM COMPARISON: None TECHNIQUE: Multiple axial CT images of the cervical spine were obtained using bone algorithm. Axial and coronal reformatting was done. Bone and soft tissue windows were reviewed. Radiation Dose Information: CT Dose: CTDI volume is 23.52 mGy. Dose-length product is 540.81 mGy*cm FINDINGS: The cervical alignment is intact. No acute cervical spine fracture is identified. The vertebral body heights are intact. No suspicious osseous lesions are identified. No significant degenerative changes are identified. There is no prevertebral soft tissue swelling. IMPRESSION: 1. No evidence of acute cervical spine fracture or traumatic malalignment. 2. All CT scans at this medical facility are performed using dose modulation techniques as appropriate to a performed exam including the following: Automated exposure control was utilized; adjustment of the MA and/or KV according to patient size; and use of iterative reconstruction technique. ATED BY: RAYRAY BURLESON MD DICTATED DATE/TIME: 08/15/241747 SIGNED BY: RAYRAY BURLESON MD SIGNED DATE/TIME: 08/15/241747 CC: [place] [address] Ph: [phone] DIAGNOSTIC IMAGING Diagnostic Imaging Report : [id number] Signed PATIENT: ASHELY ZELAYA ACCT: [id number] UNIT: [id number] : 1970 LOC: ER ROOM / BED: / AGE / SEX: 53 / M ADM STATUS: REG ER SERVICE 44 ORDERING PHYSICIAN: TATY LEAL DO PROCEDURE(s): LRIBS - L RIB X RAY REASON: fall ORDER NUMBER(s): [id number], ACCESSION NUMBER(s): [id number] CLINICAL INDICATION: fall TECHNIQUE: Left ribs. 6 radiographic views of the rims and chest x-ray were obtained. Comparison: None FINDINGS/IMPRESSION: Hemodialysis catheter in place from the right internal jugular vein with the tip in the right atrium. There is no evidence of acute fracture or dislocation. The visualized joint space is well maintained. The alignment is anatomical. There is no radiopaque foreign body. ATED BY: CAROLYNN MANN Jr., DO DICTATED DATE/TIME: 08/15/241723 SIGNED BY: CAROLYNN MANN Jr., SIGNED DATE/TIME: 08/15/241723 CC: [place] [address] Ph: [phone] DIAGNOSTIC IMAGING Diagnostic Imaging Report : [id number] Signed PATIENT: ASHELY ZELAYA ACCT: [id number] UNIT: [id number] : 1970 LOC: ER ROOM / BED: / AGE / SEX: 53 / M ADM STATUS: REG ER SERVICE 44 ORDERING PHYSICIAN: TATY LEAL DO PROCEDURE(s): LKNE3 - L KNEE 3V XRAY REASON: fall ORDER NUMBER(s): [id number], ACCESSION NUMBER(s): [id number] EXAM: XY L KNEE 3V XRAY CLINICAL INDICATION: fall TECHNIQUE: XY L KNEE 3V XRAY Comparison: None FINDINGS/IMPRESSION: There is no evidence of acute fracture or dislocation. The visualized joint space is well maintained. The alignment is anatomical. There is no radiopaque foreign body. ATED BY: JE CORONA MD DICTATED DATE/TIME: 08/15/241721 SIGNED BY: JE CORONA MD SIGNED DATE/TIME: 08/15/241721 CC: Time of 1ST Reevaluation: 17:20 Reevaluation 1ST: Unchanged Patient Education/Counseling: Diagnosis, Treatment Family Education/Counseling: No Family Present Comments Patient presented with the above HPI.---musculoskeletal pain and fall---workup was initiated. patient was found with the above mentioned diagnosis. the following medications were ordered: please refer to order lists of meds and tests obtained by myself Dr. Leal. Patient ED course and VS have been stabilized. Patient has been reassessed in the ED and remained in a stable condition. Pertinent incidental findings were discussed with the patient and/or family. Patient/family voices understanding and is agreeable with plan. Patient has been observed in the ED adequate length of time to insure improvement/stability. Escalation of care considered: Consideration of escalation to observation or admission Patient missed his dialysis session today due to a fall with a head injury and loss of consciousness. Patient has left rib pain and knee pain from the fall. No apparent fractures or dislocations on imaging studies. Patient was ADMITTED to the medicine team for further evaluation and treatment of their presentation. All the reports of any imaging studies that were ordered by myself were reviewed by myself. Departure 1 Departure Time of Disposition: 18:55 Impression: Primary Impression: Fall Additional Impressions: Closed head injury Rib pain End-stage renal disease on hemodialysis Missed dialysis Disposition: ADMITTED INPATIENT Admit to: Tele Condition: Guarded Critical Care Note Critical Care Time?: No I personally scribed for TATY LEAL DO ([email or web address]) on 08/15/24 at 17:03. Electronically submitted by Meena Pedersen ([email or web address]). I personally scribed for TATY LEAL DO ([email or web address]) on 08/15/24 at 19:00. Electronically submitted by Kurt Jacinto ([email or web address]). TATY LEAL DO August 15, 2024 17:03
--- NOTE | 2024-08-15 17:25 | DVH ---
EXAM: XY L KNEE 3V XRAY CLINICAL INDICATION: fall TECHNIQUE: XY L KNEE 3V XRAY Comparison: None FINDINGS/IMPRESSION: There is no evidence of acute fracture or dislocation. The visualized joint space is well maintained. The alignment is anatomical. There is no radiopaque foreign body.
--- NOTE | 2024-08-15 17:26 | DVH ---
CLINICAL INDICATION: fall TECHNIQUE: Left ribs. 6 radiographic views of the rims and chest x-ray were obtained. Comparison: None FINDINGS/IMPRESSION: Hemodialysis catheter in place from the right internal jugular vein with the tip in the right atrium. There is no evidence of acute fracture or dislocation. The visualized joint space is well maintained. The alignment is anatomical. There is no radiopaque foreign body.
--- NOTE | 2024-08-15 17:50 | DVH ---
EXAM: CT CERVICAL WITHOUT CONTRAST INDICATION: fall EXAM DATE: 08/15/2024 05:20 PM COMPARISON: None TECHNIQUE: Multiple axial CT images of the cervical spine were obtained using bone algorithm. Axial a nd coronal reformatting was done. Bone and soft tissue windows were reviewed. Radiation Dose Information: CT Dose: CTDI volume is 23.52 mGy. Dose-length product is 540.81 mGy*cm FINDINGS: The cervical alignment is intact. No acute cervical spine fracture is identified. The vertebral body heights are intact. No suspicious osseous lesions are identified. No significant degenerative changes are identified. There is no prevertebral soft tissue swelling. IMPRESSION: 1. No evidence of acute cervical spine fracture or traumatic malalignment. 2. All CT scans at this medical facility are performed using dose modulation techniques as appropriat e to a performed exam including the following: Automated exposure control was utilized; adjustment of the MA and/or KV according to patient size; and use of iterative reconstruction technique.
--- NOTE | 2024-08-15 17:57 | DVH ---
Procedure: CT HEAD WITHOUT CONTRAST Study Date and Requested Time: 08/15/2024 05:21 PM History: fall Comparison: CT HEAD WITHOUT CONTRAST on DOS: 08/06/24, CT HEAD WITHOUT CONTRAST on DOS: 08/01/24, CT HE AD WITHOUT CONTRAST on DOS: 07/28/24 Dose: CTDI: 60.79 mGy DLP: 1076.24 mGycm Technique: Multiplanar images obtained through the brain without intravenous contrast. Findings: Mild diffuse brain atrophy. Mild chronic small vessel ischemic changes. Bilateral high convexity fron garry lobe and bilateral thalamic chronic lacunar infarcts. No hemorrhages, masses, mass effect, midline shift, herniation or cytotoxic edema following a large v ascular territory. No intra-axial or extra-axial fluid collections. No evidence of hydrocephalus. The basal cisterns are patent. The pituitary gland, sella and parasellar regions are unremarkable. The cerebellar tonsils are in nor mal position. The cerebellum is unremarkable. The orbits and globes are unremarkable. The paranasal sinuses and mastoids are clear. There are no wo rrisome calvarial lesions. Unchanged left ssok-cngakhi-rfrj-right occipital parietal scalp edema / sm all hematoma. Impression: No evidence of acute intracranial abnormality.
[2024-08-15 18:36] LABS: Basophils # (auto) 0 10 ^3/uL (0-0.2); Basophils % (auto) 0.6 % (0.0-2.0); Eosinophils # (auto) 0.2 10 ^3/uL (0-0.8); Eosinophils % (auto) 2.9 % (0.0-7.0); Hematocrit 34.6 % (41.0-53.0); Lymphocytes # (auto) 2.3 10 ^3/uL (0.4-5.4); Lymphocytes % (auto) 35.7 % (10.0-50.0); Mean Corpuscular Hemoglobin 30.3 pg (28.0-32.0); Mean Corpuscular Hgb Conc. 34.8 g/dL (32.0-36.0); Mean Corpuscular Volume 87.1 fL (80.0-100.0); Monocytes # (auto) 0.5 10 ^3/uL (0-1.3); Monocytes % (auto) 8.4 % (0.0-12.0); Neutrophils # (auto) 3.4 10 ^3/uL (1.6-8.6); Neutrophils % (auto) 52.4 % (37.0-80.0); Nucleated Red Blood Cells % 0.1 %; Platelet Count (auto) 300 10^3/uL (140-450); Red Blood Cells 3.97 10^6/uL (4.5-5.90); Red Cell Distribution Width 13.9 % (11.8-14.3); White Blood Cell 6.5 10^3/uL (4.4-10.8)
[2024-08-15 18:52] LABS: Alanine Aminotransferase 12 U/L (7-40); Albumin 4.2 g/dL (3.2-4.8); Alkaline Phosphatase 109 U/L (46-116); Anion Gap 14 (5-15); BUN/Creatinine Ratio 6.5 (10.0-20.0); Carbon Dioxide 24 mmol/L (20-31); Chloride 100 mmol/L (98-107); Sodium 138 mmol/L (136-145); Total Protein 6.7 g/dL (5.7-8.2)
[2024-08-15 18:53] LABS: Aspartate Aminotransferase 11 U/L (13-40); Bilirubin, Total < 0.2 mg/dL (0.2-1.0); Blood Urea Nitrogen 41 mg/dL (9-23); Glucose 274 mg/dL (74-106)
--- NOTE | 2024-08-15 19:05 | DVHHP2 ---
Admitting Diagnosis: Fall History of Present Illness A 53-year-old male presents to the emergency department with a chief complaint of fall onset today (08/15/24). Patient was getting ready for dialysis, was sta nding when he fell, landing on Lt knee followed by LT side, states he hit his head, experienced LOC. He is currently experiencing LT knee pain, Lt shoulder pain, LT chest wall pain/ribcage anterior and posterior. Denies nausea, vomiting, diarrhea, shortness of breath, fever, chills. No other symptoms or modifying factors present at this time. Vitals Temperature: 97.3F Respiratory rate: 20 SpO2: 95% Heart rate: 108 Blood pressure: 102/82 Past Medical History: ESRD, a-fib, CHF, DM, HLD, HTN, schizophrenia, seizures Past Surgical History: denies Social History:denies REVIEW OF SYSTEMS: CONSTITUTIONAL: Denies acute: fever, diaphoresis, chills, HEAD: Denies acute: headache, photophobia Eyes: Denies acute: Double vision, vision loss, eye pain, eye discharge. EARS: Denies acute: tinnitus, hearing loss, ear discharge, ear pain, THROAT: Denies acute: sore throat, swelling, difficulty swallowing , pain with swallowing, change in voice. NECK: Denies acute: neck pain, neck swelling, stiff neck. HEART: Denies acute : palpitations, LUNGS: Denies acute: SOB, wheezing, cough, hemoptysis ABDOMEN: Denies acute: abdominal pain, Nausea, Vomiting, diarrhea, melena , hematemesis, hematochezia SKIN: Denies acute: rash, redness, lesions, itchiness. EXTREMITIES: Denies acute: calf pain, numbness, tingling, weakness, Denies acute: Low back pain. Neuro: Denies acute: focal neurological deficit, motor or sensory focal neurological deficit, tremors, seizure like activity, confusion, dizziness, change in mental status, loss of bowel or bladder function, cauda equina like symptoms. : Denies acute: dysuria, hematuria, flank pain, increase in urinary frequency. PSYCH: Denies acute: hallucination, suicidal ideation, homicidal ideation. PAST MEDICAL HISTORY: AFIB, CHF, DM, ESRD, High Lipids, HTN, Schizophrenia, Seizures Surgical History: Denies all surgeries Patient Family History: Patient reports no known family medical history. Allergies: Coded Allergies: Erythromycin (Verified Allergy, Unknown, 04/17/24) Penicillins (Verified Allergy, Unknown, 04/17/24) Home Meds Active Scripts Hydralazine Hcl (Hydralazine Hcl) 25 Mg Tab, 25 MG PO TID for 90 Days, #270 TAB Prov:MYRIAM CORNELIUS MD 08/06/24 Hydrocodone-Acetaminophen (Hydrocodone Bitartrate/AC 5-325 mg) 1 Tab Tab, 1 TAB PO Q6HP PRN, #20 TAB Prov:MYRIAM CORNELIUS MD 08/06/24 Isosorbide Dinitrate (Isosorbide Dinitrate) 10 Mg Tab, 20 MG PO TID@06,12,18 for 30 Days, #30 TAB Prov:JOSEF NUNN 07/30/24 Hydralazine HCl (Hydralazine HCl) 25 Mg Tab, 25 MG PO Q8HR for 30 Days, #90 TAB Prov:JOSEF NUNN 07/30/24 Carvedilol (COREG) 12.5 Mg Tab, 12.5 MG PO Q12HR for 30 Days, #60 TAB Prov:JOSEF NUNN 07/30/24 Apixaban Base (ELIQUIS) 2.5 Mg Tab, 2.5 MG PO BID for 30 Days, #60 TAB Prov:JOSEF NUNN 07/30/24 Atorvastatin Calcium (Lipitor) 40 Mg Tab, 40 MG PO DAILY for 40 Days, #40 TAB Prov:JOSEF NUNN [facility] 07/30/24 Reported Medications Quetiapine Fumerate (QUETIAPINE FUMARATE) 50 Mg Tab, 1 TAB PO 06/07/24 Bumetanide (Bumetanide) 1 Mg Tab, 1 TAB PO DAILY 06/07/24 Levetiracetam (Levetiracetam) 1,000 Mg Tab, 1 TAB PO BID 06/07/24 Insulin Lispro (Insulin Lispro Thai Kwi) 100 Unit/Ml Inj 06/07/24 Olopatadine HCl (Olopatadine Hydrochloride) 0.1 % Melchor, 1 DROP LEFTEYE BID 06/07/24 Current Medications Current Medications Medications (Trade) Dose Ordered Sig/Misty Route PRN Reason Start Time Stop Time Status Last Admin Apixaban (Eliquis) 2.5 mg BID PO 08/15/24 22:00 Bumetanide (Bumex Tablet) 1 mg DAILY PO 08/16/24 10:00 Carvedilol (Coreg Tablet) 12.5 mg Q12HR PO 08/15/24 22:00 Atorvastatin Calcium (Lipitor) 40 mg DAILY PO 08/16/24 10:00 Levetiracetam (Keppra Tablet) 1,000 mg BID PO 08/15/24 22:00 Patient Own Medication 1 drop BID LEFTEYE 08/15/24 22:00 UNV Vital Signs Vital Signs Date Time Temp Pulse Resp B/P (MAP) Pulse Ox O2 Delivery O2 Flow Rate FiO2 08/15/24 18:38 96 18 98 Room Air 08/15/24 18:38 97.7 111/86 (94) 97.7 Physical Exam Generally 53 years old male, well nourished well developed. Mild distress HEENT-atraumatic, normocephalic , Heart-regular rate and rhythm Lungs clear to auscultate bilaterally , hemodialysis catheter intact Abdomen soft nontender nondistended Musculoskeletal-no edema cyanosis left knee tenderness Neuro-AO x3, no focal, no focal deficits Results Labs Test 08/15/24 18:05 Range/Units White Blood Count 6.5 4.4-10.8 10^3/uL Red Blood Count 3.97 L 4.5-5.90 10^6/uL Hemoglobin 12.0 L 13.5-17.5 g/dL Hematocrit 34.6 L 41.0-53.0 % Mean Corpuscular Volume 87.1 80.0-100.0 fL Mean Corpuscular Hemoglobin 30.3 28.0-32.0 pg Mean Corpuscular Hemoglobin Concent 34.8 32.0-36.0 g/dL Red Cell Distribution Width 13.9 11.8-14.3 % Platelet Count 300 140-450 10^3/uL Mean Platelet Volume 7.3 6.9-10.8 fL Neutrophils (%) (Auto) 52.4 37.0-80.0 % Lymphocytes (%) (Auto) 35.7 10.0-50.0 % Monocytes (%) (Auto) 8.4 0.0-12.0 % Eosinophils (%) (Auto) 2.9 0.0-7.0 % Basophils (%) (Auto) 0.6 0.0-2.0 % Neutrophils # (Auto) 3.4 1.6-8.6 10 ^3/uL Lymphocytes # (Auto) 2.3 0.4-5.4 10 ^3/uL Monocytes # (Auto) 0.5 0-1.3 10 ^3/uL Eosinophils # (Auto) 0.2 0-0.8 10 ^3/uL Basophils # (Auto) 0 0-0.2 10 ^3/uL Nucleated Red Blood Cells 0.1 % Sodium Level 138 136-145 mmol/L Potassium Level 4.0 3.5-5.1 mmol/L Chloride Level 100 98-107 mmol/L Carbon Dioxide Level 24 20-31 mmol/L Anion Gap 14 5-15 Blood Urea Nitrogen 41 H 9-23 mg/dL Creatinine 6.28 H 0.700-1.30 mg/dL Glomerular Filtration Rate Calc 10 >90 mL/min BUN/Creatinine Ratio 6.5 L 10.0-20.0 Serum Glucose 274 H 74-106 mg/dL Calcium Level 10.0 8.7-10.4 mg/dL Total Bilirubin < 0.2 L 0.2-1.0 mg/dL Aspartate Amino Transferase (AST) 11 L 13-40 U/L Alanine Aminotransferase (ALT) 12 7-40 U/L Alkaline Phosphatase 109 46-116 U/L Total Protein 6.7 5.7-8.2 g/dL Albumin 4.2 3.2-4.8 g/dL Primary Diagnosis Syncope Left knee pain Head trauma Rib pain Plan ct head neg CT cervical neck - neg for fracture rib cxr neg for fracture HD cath in MOJ XR L knee - no fracture Has been orthostatic hypotension Check orthostatic hypotension If orthostatic hypotensive, ordered compression stocking Resume home meds Nephrology consult Renal diet Full code Oral anticoagulation No GI prophylaxis needed Plan discussed with: Patient PRIYANK SUÁREZ MD August 15, 2024 19:05
[2024-08-15 20:40] VITALS: PULSE 115; RESP 18; O2SAT 96
[2024-08-15] MEDS: APIXABAN 2.5 MG TAB PO SCH (20:45)
[2024-08-15] MEDS: levETIRAcetam 500 MG TAB PO SCH (20:45)
[2024-08-15] MEDS: HYDROcodone-ACET 5/325MG TAB PO ONE (20:45)
[2024-08-15] MEDS: CARVEDILOL 12.5 MG TAB PO SCH (20:45)
[2024-08-15 21:06] LABS: Urine Bacteria None Seen /hpf (None Seen)
[2024-08-15 21:19] LABS: Urine Blood Negative /uL (Negative); Urine Clarity Clear (Clear); Urine Color Light-Yellow (Yellow); Urine Protein, UAD 3+ (Negative); Urine Specific Gravity 1.012 (1.001-1.035); Urine Squamous Epithelial Cell FEW /hpf (<5); Urine Urobilinogen Normal (Negative); Urine WBC 4 /HPF (0-3); Urine pH 7.5 (5.0-9.0)
[2024-08-15] MEDS ORDERED: DEXTROSE (50%) 50ML SYRG IV PRN (22:15)
[2024-08-15 22:30] VITALS: PULSE 97; RESP 17; O2SAT 96
[2024-08-15] MEDS: QUEtiapine FUMARATE 25 MG TAB PO SCH (22:36)
[2024-08-15] MEDS: ONDANSETRON HCL 4 MG/2 ML VIAL IV PRN (23:52)
[2024-08-15] MEDS: MORPHINE SULFATE INJ 2 MG/ml SYRG IV ONE (23:53)
--- NOTE | 2024-08-16 03:25 | DVHHP2 ---
History of Present Illness History of Present Illness This is a 53-year-old male with a history of ESRD on hemodialysis, HFrEF (EF 40%), paroxysmal atrial fibrillation (currently in sinus rhythm), schizophrenia, seizure disorder, diabetes mellitus type 2 (insulin dependent), hypertension, and known methamphetamine use, who presented to the ED after a mechanical fall at home on 08/15/2024. He reports that he was standing while preparing for dialysis when he suddenly fell, landing on his left knee and left shoulder. He believes he briefly lost consciousness, as he does not recall the duration he remained on the floor. No witnessed seizure activity was reported. He endorsed pain in his left knee, left shoulder, and anterior/posterior chest wall. Denies associated nausea, vomiting, diarrhea, fever, chills, or shortness of breath. He was noted to be a poor historian. PMH: ESRD on HD, paroxysmal AFib, CHF (EF 40%), DM2 (IDDM), HTN, seizure disorder, schizophrenia PSH: None reported Social: History of drug use (methamphetamine) Medications: Poor adherence reported Review of Systems: Constitutional: Denies fever, chills, diaphoresis. Head: Denies headache, photophobia. Eyes: Denies vision changes, eye pain/discharge. ENT: Denies hearing loss, tinnitus. Neck: Denies neck stiffness or pain. Cardiac/Respiratory/GI/Neuro: See HPI. Review of Systems Allergies: Coded Allergies: Erythromycin (Verified Allergy, Unknown, 04/17/24) Penicillins (Verified Allergy, Unknown, 04/17/24) Medications Current Medications Medications Dose Ordered Sig/Misty Route Start Time Stop Time Status Last Admin Dose Admin Apixaban 2.5 mg BID PO 08/15/24 22:00 08/15/24 20:45 2.5 MG Bumetanide 1 mg DAILY PO 08/16/24 10:00 Carvedilol 12.5 mg Q12HR PO 08/15/24 22:00 Atorvastatin Calcium 40 mg DAILY PO 08/16/24 10:00 Levetiracetam 1,000 mg BID PO 08/15/24 22:00 08/15/24 20:45 1,000 MG Patient Own Medication 1 drop BID LEFTEYE 08/15/24 22:00 UNV Acetaminophen 650 mg Q6HP PRN PO 08/15/24 21:00 Acetaminophen/ Hydrocodone Bitart 1 tab Q4HP PRN PO 08/15/24 21:00 Quetiapine Fumarate 50 mg HS PO 08/15/24 22:15 08/15/24 22:36 50 MG Diagnostic Test (Pha) 1 strip ACHS 08/16/24 07:00 Insulin Human Regular ACHS SC 08/16/24 07:00 Dextrose 50 ml UD PRN IV 08/15/24 22:15 Ondansetron HCl 4 mg Q8HPRN PRN IV 08/15/24 23:15 08/15/24 23:52 4 MG Heparin Sodium (Porcine) 5,000 units Q12HR SC 08/16/24 10:00 UNV Exam Vital Signs Vital Signs Date Time Temp Pulse Resp B/P (MAP) Pulse Ox O2 Delivery O2 Flow Rate FiO2 08/16/24 00:00 97 08/16/24 00:00 16 93/59 (70) 97 08/15/24 22:30 98.3 98.3 08/15/24 22:30 Room Air* 0 21 General Appearance: Alert, Oriented X3 HEENT: Atraumatic, PERRLA Respiratory: Clear to auscultation Cardiovascular: Other (tenderness in left chest ) Abdominal: Normal bowel sounds Extremities: No clubbing, No cyanosis Skin: No rashes, No breakdown Neuro: Normal gait, Normal speech Psych/Mental Status: Mental status NL, Mood NL Labs/Xrays Labs Test 08/15/24 20:48 08/15/24 18:05 Range/Units Urine Color Light-yellow Yellow Urine Clarity Clear Clear Urine pH 7.5 5.0-9.0 Urine Specific [place] 1.012 1.001-1.035 Urine Protein 3+ H Negative Urine Ketones Negative Negative Urine Blood Negative Negative /uL Urine Nitrite Negative Negative Urine Bilirubin Negative Negative Urine Urobilinogen Normal Negative mg/dL Urine Leukocyte Esterase Negative Negative /uL Urine RBC 1 0 - 3 /hpf Urine Microscopic WBC 4 H 0-3 /HPF Urine Squamous Epithelial Cells Few <5 /hpf Urine Bacteria None seen None Seen /hpf Urine Glucose 4+ H Normal mg/dL White Blood Count 6.5 4.4-10.8 10^3/uL Red Blood Count 3.97 L 4.5-5.90 10^6/uL Hemoglobin 12.0 L 13.5-17.5 g/dL Hematocrit 34.6 L 41.0-53.0 % Mean Corpuscular Volume 87.1 80.0-100.0 fL Mean Corpuscular Hemoglobin 30.3 28.0-32.0 pg Mean Corpuscular Hemoglobin Concent 34.8 32.0-36.0 g/dL Red Cell Distribution Width 13.9 11.8-14.3 % Platelet Count 300 140-450 10^3/uL Mean Platelet Volume 7.3 6.9-10.8 fL Neutrophils (%) (Auto) 52.4 37.0-80.0 % Lymphocytes (%) (Auto) 35.7 10.0-50.0 % Monocytes (%) (Auto) 8.4 0.0-12.0 % Eosinophils (%) (Auto) 2.9 0.0-7.0 % Basophils (%) (Auto) 0.6 0.0-2.0 % Neutrophils # (Auto) 3.4 1.6-8.6 10 ^3/uL Lymphocytes # (Auto) 2.3 0.4-5.4 10 ^3/uL Monocytes # (Auto) 0.5 0-1.3 10 ^3/uL Eosinophils # (Auto) 0.2 0-0.8 10 ^3/uL Basophils # (Auto) 0 0-0.2 10 ^3/uL Nucleated Red Blood Cells 0.1 % Sodium Level 138 136-145 mmol/L Potassium Level 4.0 3.5-5.1 mmol/L Chloride Level 100 98-107 mmol/L Carbon Dioxide Level 24 20-31 mmol/L Anion Gap 14 5-15 Blood Urea Nitrogen 41 H 9-23 mg/dL Creatinine 6.28 H 0.700-1.30 mg/dL Glomerular Filtration Rate Calc 10 >90 mL/min BUN/Creatinine Ratio 6.5 L 10.0-20.0 Serum Glucose 274 H 74-106 mg/dL Calcium Level 10.0 8.7-10.4 mg/dL Total Bilirubin < 0.2 L 0.2-1.0 mg/dL Aspartate Amino Transferase (AST) 11 L 13-40 U/L Alanine Aminotransferase (ALT) 12 7-40 U/L Alkaline Phosphatase 109 46-116 U/L B-Type Natriuretic Peptide 269.52 0-100 pg/mL Total Protein 6.7 5.7-8.2 g/dL Albumin 4.2 3.2-4.8 g/dL Assessment/Plan Assessment/Plan Syncope? Mechanical fall Acute on chronic HFrEF ejection fraction 40%? 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 H/o OF UDS positive for methamphetamine Paroxysmal atrial fibrillation, currently sinus rhythm ESRD on hemodialysis Diabetes mellitus type 2 insulin dependent H/o Seizure Schizophrenia Medication non adherent Drug user Dyslipidemia Admit Medsurg Renal diet Nephrology consult due to dialysis need Normal head ct scan Normal x ray: no fractures [place] 5 mg PRN Apixaban PO Atorvastatin PO Bumetanide PO Carvedilol 12.5 mg BID Keppra 1000 mg BID Mild ISS Quetiapine 50 MG PO [place] 5 mg PRN Case discussed with Dr Begum Full code Plan discussed with: Patient, Other My Orders Orders - BERTRAM LARKIN Procedure Category Date Status Time Admit ADMIT 08/15/24 Transmitted 20:48 Code Status CODE 08/15/24 Transmitted 20:48 Vital Signs YOLY 08/15/24 In Process 20:48 Review Orders With YOLY 08/15/24 In Process Adm. 20:48 Consistent DIET 08/16/24 Transmitted Carb(Ccho)Diabetes Breakfast Acetaminophen Tablet PHA 08/15/24 In Process (Tylenol Tablet) 21:00 Notify Md Of Changes YOLY 08/15/24 In Process From Base 20:48 Advance Directive YOLY 08/15/24 In Process 20:48 Patient Condition ORDERS 08/15/24 Transmitted 20:48 Allergies YOLY 08/15/24 In Process 20:48 Hydrocodone-Acet PHA 08/15/24 In Process 5/325mg Tab ([place] 21:00 *Dr. [facility] CONS 08/15/24 Transmitted -[place] 21:00 Carotid Duplx W Color US 08/16/24 Logged DOP 08:00 Quetiapine Fumarate PHA 08/15/24 In Process Tablet (Seroquel Tab 22:15 Glucose Blood PHA 08/16/24 In Process (Accu-Chek Comfort 07:00 Insulin R (Human) PHA 08/16/24 In Process (Insulin R) 07:00 Dextrose 50% Syringe PHA 08/15/24 In Process 22:15 Ondansetron Hcl PHA 08/15/24 In Process (Zofran) 23:15 Complete Blood Count LAB 08/16/24 Logged 03:22 Comprehensive LAB 08/16/24 Logged Metabolic Panel 03:22 Heparin Sodium PHA 08/16/24 Logged (Porcine) 10:00 Date of Service: August 15, 2024 Billing Provider: LINN BEGUM MD Common Visit Codes: [id number] INP/OBS CARE (HIGH) Secondary Visit Codes: 43555-[id number] CARE PLAN 30 MINUTES BERTRAM LARKIN RESIDENT August 16, 2024 03:25
[2024-08-16] MEDS: InsuLIN REG 1unit/0.01ml Soln (100units/ml) SC SCH (06:49)
[2024-08-16] MEDS: ACCU-CHEK COMFORT CURVE STRIP VI SCH (06:50)
[2024-08-16 07:07] LABS: Alanine Aminotransferase 11 U/L (7-40); Albumin 3.8 g/dL (3.2-4.8); Alkaline Phosphatase 97 U/L (46-116); Anion Gap 14 (5-15); BUN/Creatinine Ratio 6.4 (10.0-20.0); Calcium 9.5 mg/dL (8.7-10.4); Carbon Dioxide 23 mmol/L (20-31); Chloride 103 mmol/L (98-107); Potassium 4.3 mmol/L (3.5-5.1); Sodium 140 mmol/L (136-145)
[2024-08-16 07:08] LABS: Aspartate Aminotransferase 11 U/L (13-40); Blood Urea Nitrogen 46 mg/dL (9-23); Glucose 187 mg/dL (74-106)
[2024-08-16 07:09] LABS: Bilirubin, Total < 0.2 mg/dL (0.2-1.0)
[2024-08-16 07:17] LABS: Basophils # (auto) 0 10 ^3/uL (0-0.2); Basophils % (auto) 0.5 % (0.0-2.0); Eosinophils # (auto) 0.2 10 ^3/uL (0-0.8); Eosinophils % (auto) 2.5 % (0.0-7.0); Hematocrit 30.7 % (41.0-53.0); Hemoglobin 10.4 g/dL (13.5-17.5); Lymphocytes # (auto) 2.7 10 ^3/uL (0.4-5.4); Lymphocytes % (auto) 37.6 % (10.0-50.0); Mean Corpuscular Hemoglobin 30.3 pg (28.0-32.0); Mean Corpuscular Hgb Conc. 33.9 g/dL (32.0-36.0); Mean Corpuscular Volume 89.3 fL (80.0-100.0); Monocytes # (auto) 0.7 10 ^3/uL (0-1.3); Monocytes % (auto) 9.9 % (0.0-12.0); Neutrophils # (auto) 3.6 10 ^3/uL (1.6-8.6); Neutrophils % (auto) 49.5 % (37.0-80.0); Nucleated Red Blood Cells % 0.4 %; Platelet Count (auto) 251 10^3/uL (140-450); Red Blood Cells 3.44 10^6/uL (4.5-5.90); Red Cell Distribution Width 14.2 % (11.8-14.3); White Blood Cell 7.2 10^3/uL (4.4-10.8)
--- NOTE | 2024-08-16 09:03 | DVH ---
Carotid Duplex Date: 08/16/2024 07:23 AM Clinical History: syncope Comparison: None Technique: Duplex Doppler evaluation of the extracranial carotid and vertebral arteries including col or Doppler and spectral/pulsed waveform analysis was performed. Findings: RIGHT SIDE: The peak systolic velocities are 71 cm/s in the distal CCA and 89 cm/s in the proximal ICA.The ICA/CC A ratio is less than 2. The external carotid artery is patent with peak systolic velocity of 91 cm/s proximally. There is appropriate antegrade flow in the right vertebral artery. LEFT SIDE: The peak systolic velocities are 59 cm/s in the distal CCA and 87 cm/s in the proximal ICA.. The ICA/ CCA ratio is less than 2. The external carotid artery is patent with peak systolic velocity of 93 cm/s proximally. There is appropriate antegrade flow in the left vertebral artery. IMPRESSION: No hemodynamically significant stenosis noted in the right carotid system. No hemodynamically significant stenosis noted in the left carotid system. Reference: Radiology 2003; [id number]
[2024-08-16] MEDS: OLOPATADINE HCL 0.1% LEFTEYE SCH (10:00)
[2024-08-16] MEDS ORDERED: HEPARIN SODIUM (PORCINE) 5000 UNITS/ML 1ML VIAL SC SCH (10:00)
[2024-08-16] MEDS: ATORVASTATIN 20 MG TAB PO SCH (10:31)
[2024-08-16] MEDS: BUMETANIDE 1 MG TAB PO SCH (10:33)
--- NOTE | 2024-08-16 13:11 | DVH ---
CLINICAL INDICATION: severe pain TECHNIQUE: 2 radiographic views of the left clavicle were obtained. Comparison: None FINDINGS/IMPRESSION: Chronic mid left clavicle fracture.
[2024-08-16] MEDS: HYDROcodone-ACET 5/325MG TAB PO PRN (13:20)
--- NOTE | 2024-08-16 14:52 | DVHPNRES ---
Progress Note Date Seen: August 16, 2024 Resident Creating Document: GULSHAN JIMENEZ RESIDENT Has the PT tested + for MRSA If YES, has PT been informed?: No Medical Necessity Reason Pt with a Central, PICC or Fol: No Subjective Review of Systems Stu Goins is a 53-year-old male with a complex medical history including end-stage renal disease (ESRD) on hemodialysis, heart failure with reduced ejection fraction (HFrEF, EF 40%), paroxysmal atrial fibrillation (currently in sinus rhythm), schizophrenia, seizure disorder, insulin-dependent type 2 diabetes mellitus, hypertension, and known methamphetamine use. He presented to the emergency department following a mechanical fall at home on 08/15/2024. The patient reports that he was standing while preparing for dialysis when he suddenly fell, landing on his left knee and left shoulder. He states that he does not recall exactly what happened before the fall and believes he may have lost consciousness. After regaining awareness, he experienced dizziness, lightheadedness, nausea, and vomiting, though he is unsure how long he remained on the floor. There was no witnessed seizure activity. He currently endorses pain in the left knee, left shoulder, and both anterior and posterior chest wall. He denies associated symptoms such as diarrhea, fever, chills, or shortness of breath. The patient is noted to be a poor historian, which may limit the reliability of the history. Patient seen and examined at the bedside. Patient reporting generalized body pains and having more pain in the left clavicle, ordered imaging. Patient is currently receiving pain management. Continue current management. Objective vital signs Vital Sign Date Time Temp Pulse Resp B/P (MAP) Pulse Ox O2 Delivery O2 Flow Rate FiO2 08/16/24 12:05 84 08/16/24 12:00 18 125/78 (94) 96 08/16/24 08:00 98.0 98.0 08/16/24 08:00 Room Air* 0 21 medications Current Medications Medications Dose Ordered Sig/Misty Route Start Time Stop Time Status Last Admin Dose Admin Apixaban 2.5 mg BID PO 08/15/24 22:00 08/16/24 10:33 2.5 MG Bumetanide 1 mg DAILY PO 08/16/24 10:00 08/16/24 10:33 1 MG Carvedilol 12.5 mg Q12HR PO 08/15/24 22:00 08/16/24 10:32 12.5 MG Atorvastatin Calcium 40 mg DAILY PO 08/16/24 10:00 08/16/24 10:31 40 MG Levetiracetam 1,000 mg BID PO 08/15/24 22:00 08/16/24 10:30 1,000 MG Patient Own Medication 1 drop BID LEFTEYE 08/16/24 10:00 Acetaminophen 650 mg Q6HP PRN PO 08/15/24 21:00 Acetaminophen/ Hydrocodone Bitart 1 tab Q4HP PRN PO 08/15/24 21:00 08/16/24 13:20 1 TAB Quetiapine Fumarate 50 mg HS PO 08/15/24 22:15 08/15/24 22:36 50 MG Diagnostic Test (Pha) 1 strip ACHS 08/16/24 07:00 08/16/24 11:46 1 STRIP Insulin Human Regular ACHS SC 08/16/24 07:00 08/16/24 11:55 3 UNITS Dextrose 50 ml UD PRN IV 08/15/24 22:15 Ondansetron HCl 4 mg Q8HPRN PRN IV 08/15/24 23:15 08/15/24 23:52 4 MG Heparin Sodium (Porcine) 5,000 units Q12HR SC 08/16/24 10:00 UNV Examination Pt is lying on bed, generalized body tenderness due to fall. General Appearance: Alert, Oriented X3, Cooperative, Not in acute distress HEENT: Atraumatic, Mucous membranes moist/pink Respiratory: Clear to auscultation, Normal air movement, No added sounds Cardiovascular: Regular rate, Normal S1, Normal S2, No murmurs, tenderness in left chest Abdominal: Active bowel sounds, Soft, no distention, no tenderness Extremities: No edema, Normal pulses, No tenderness/swelling Skin: No Significant rash, except past surgical scars Neuro: Normal speech, sensorimotor deficits none Psych/Mental Status: Mental status NL, Mood NL Nurse was there as sharperone during examination laboratory and microbiology Laboratory Tests 08/16/24 04:50 Test 08/16/24 04:50 Range/Units Serum Glucose 187 H 74-106 mg/dL Labs and/or images reviewed: Labs reviewed by me, Image(s) reviewed by me Problem List/Assessment/Plan Problem List/Assessment/Plan # Mechanical Fall With LOC # Syncope likely orthostatic/ arrhythmias # dizziness/lightheadedness. # ? orthostatic hypotension vs arrhythmia vs seizure - Monitor telemetry for arrhythmias. - Orthostatic vitals. - Neurology consult if seizure suspected. - Continue fall precautions. - Head CT: normal, no acute changes - X-rays: no fractures. # Chronic mid left clavicle fracture. - evident on x-ray - pain management # Acute on Chronic HFrEF (EF 40%) # medication non-adherence; # Hx of methamphetamine use may contribute to cardiomyopathy. # Paroxysmal Atrial Fibrillation (currently in sinus rhythm) with a secondary hypercoagulable state, on Eliquis - Monitor for rate/rhythm changes on telemetry. - Continue guideline-directed medical therapy (GDMT): carvedilol, bumetanide. - Monitor weight, I/Os, BNP, and renal function. - Consider echocardiogram if not recently done. -Substance use counseling. - Toxicology screen. # ESRD on Hemodialysis - Nephrology consult for dialysis coordination. - correct electrolyte imbalance - monitor lab # Type 2 Diabetes Mellitus (insulin-dependent) - Monitor blood glucose. - Sliding scale - HbA1c # History of Seizure - Continue Keppra 1000 mg BID. - seizure precautions # Schizophrenia # Medication adherence unclear. - Continue quetiapine 50 mg PO. - Psychiatry consult if behavioral concerns arise. # Medication Non-Adherence / Drug Use - counseled regarding this was benefits of medication adherence # Dyslipidemia - Continue atorvastatin PO. Medications on Admission Apixaban anticoagulation for AF. Atorvastatin for dyslipidemia. Bumetanide loop diuretic for volume control. Carvedilol 12.5 mg BID beta-fredo for HFrEF. Keppra 1000 mg BID seizure prophylaxis. Quetiapine 50 mg PO antipsychotic for schizophrenia. [place] 5 mg PRN for pain management. Protonix Eliquis Renal diet Goals of care discussed with the patient for more than 27 minutes: Full code status Case discussed with Dr. Tineo, patient, nurse Plan discussed with: Patient My Orders My Orders Orders - GULSHAN JIMENEZ RESIDENT Procedure Category Date Status Time Drug Screen LAB 08/16/24 Logged 08:30 L Clavicle Complete XY 08/16/24 Resulted Xray 11:18 Date of Service: August 16, 2024 Billing Provider: JESUS ALBERTO TINEO MD Common Visit Codes: [id number] INP/OBS CARE(HIGH) Secondary Visit Codes: [id number] CARE PLAN 30 MINUTES GULSHAN JIMENEZ August 16, 2024 14:52 JESUS ALBERTO TINEO MD August 16, 2024 20:03
--- NOTE | 2024-08-16 19:21 | DVHINCON2 ---
Date of service: August 16, 2024 Referring Physician Daisy Duff NP Reason for Consultation ESRD History of Present Illness Mr. Goins is a 53-year-old male with known history of ESRD who presented for further evaluation and management after having a mechanical fall on the day of admission. He was seen in the emergency department earlier today, resting comfortably but arousable. He denies current dyspnea, PND, orthopnea, chest pain, recent fevers or chills. Past Medical History ESRD Hypertension Anemia Dyslipidemia Allergies: Coded Allergies: Erythromycin (Verified Allergy, Unknown, 04/17/24) Penicillins (Verified Allergy, Unknown, 04/17/24) Home Meds Active Scripts Hydralazine Hcl (Hydralazine Hcl) 25 Mg Tab, 25 MG PO TID for 90 Days, #270 TAB Prov:MYRIAM CORNELIUS MD 08/06/24 Hydrocodone-Acetaminophen (Hydrocodone Bitartrate/AC 5-325 mg) 1 Tab Tab, 1 TAB PO Q6HP PRN, #20 TAB Prov:MYRIAM CORNELIUS MD 08/06/24 Carvedilol (COREG) 12.5 Mg Tab, 12.5 MG PO Q12HR for 30 Days, #60 TAB Prov:JOSEF NUNN RESIDENT 07/30/24 Apixaban Base (ELIQUIS) 2.5 Mg Tab, 2.5 MG PO BID for 30 Days, #60 TAB Prov:JOSEF NUNN RESIDENT 07/30/24 Atorvastatin Calcium (Lipitor) 40 Mg Tab, 40 MG PO DAILY for 40 Days, #40 TAB Prov:JOSEF NUNN RESIDENT 07/30/24 Reported Medications Levetiracetam (Levetiracetam) 750 Mg Tab, 1 TAB PO GERARD for 30 Days, #60 TAKE 1 TABLET BY MOUTH ALONG WITH 1000 MG TWICE DAILY ON DIALYSIS DAYS. 08/16/24 Isosorbide Dinitrate (Isosorbide Dinitrate) 10 Mg Tab, 2 TAB PO TID@0600,1200,1800 for 5 Days, #30 08/16/24 Quetiapine Fumerate (QUETIAPINE FUMARATE) 50 Mg Tab, 1 TAB PO 06/07/24 Bumetanide (Bumetanide) 1 Mg Tab, 1 TAB PO DAILY 06/07/24 Levetiracetam (Levetiracetam) 1,000 Mg Tab, 1 TAB PO BID 06/07/24 Insulin Lispro (Insulin Lispro Thai Kwi) 100 Unit/Ml Inj 06/07/24 Olopatadine HCl (Olopatadine Hydrochloride) 0.1 % Melchor, 1 DROP LEFTEYE BID 06/07/24 Current Medications Current Medications Medications (Trade) Dose Ordered Sig/Misty Route PRN Reason Start Time Stop Time Status Last Admin Apixaban (Eliquis) 2.5 mg BID PO 08/15/24 22:00 08/16/24 10:33 Bumetanide (Bumex Tablet) 1 mg DAILY PO 08/16/24 10:00 08/16/24 10:33 Carvedilol (Coreg Tablet) 12.5 mg Q12HR PO 08/15/24 22:00 08/16/24 10:32 Atorvastatin Calcium (Lipitor) 40 mg DAILY PO 08/16/24 10:00 08/16/24 10:31 Levetiracetam (Keppra Tablet) 1,000 mg BID PO 08/15/24 22:00 08/16/24 10:30 Patient Own Medication 1 drop BID LEFTEYE 08/16/24 10:00 Acetaminophen (Tylenol Tablet) 650 mg Q6HP PRN PO PAIN SCALE 1-3 OR TEMP>100.4 08/15/24 21:00 Acetaminophen/ Hydrocodone Bitart ([place]rose 5/325MG Tab) 1 tab Q4HP PRN PO MODERATE PAIN (4-6 PAIN SCALE) 08/15/24 21:00 08/16/24 13:20 Quetiapine Fumarate (SEROquel TABLET) 50 mg HS PO 08/15/24 22:15 08/15/24 22:36 Diagnostic Test (Pha) (Accu-Chek Comfort Curve T) 1 strip ACHS 08/16/24 07:00 08/16/24 17:00 Insulin Human Regular (InsuLIN R) ACHS SC 08/16/24 07:00 08/16/24 17:36 Dextrose 50 ml UD PRN IV Blood Sugar LESS THAN 60 08/15/24 22:15 Ondansetron HCl (Zofran) 4 mg Q8HPRN PRN IV NAUSEA / VOMITING 08/15/24 23:15 08/15/24 23:52 Heparin Sodium (Porcine) 5,000 units Q12HR SC 08/16/24 10:00 UNV Pantoprazole Sodium (Protonix) 40 mg DAILY IV 08/17/24 10:00 Family History: Patient reports no known family medical history. Review of Systems Denies gross hematuria, dysuria, tea or Coca-Cola colored urine Denies excessive use of recent NSAIDs, foamy urine, recent IV contrast studies Denies recent chest pain, dyspnea, PND, orthopnea Denies fever, chills, nausea, vomiting, diarrhea Denies unintentional weight loss, night sweats Denies focal weakness, numbness H&P Exam Vital Signs/I&O Vital Sign Date Time Temp Pulse Resp B/P (MAP) Pulse Ox O2 Delivery O2 Flow Rate FiO2 08/16/24 18:00 78 17 153/86 (108) 96 08/16/24 08:00 98.0 98.0 08/16/24 08:00 Room Air* 0 21 Physical Exam Gen: nad heent: nc/at, mmm lungs: cta anteriorly cvs: no rub abd: soft, bowel sounds audible ext: no edema skin: no rash neuro: alert and oriented Labs/Diagnostic Data Labs/Diagnostic Data Laboratory Tests Test 08/16/24 17:13 08/16/24 11:41 08/16/24 06:27 08/16/24 04:50 Range/Units POC Glucose 186 H 185 H 165 H 70-106 mg/dl White Blood Count 7.2 4.4-10.8 10^3/uL Red Blood Count 3.44 L 4.5-5.90 10^6/uL Hemoglobin 10.4 L 13.5-17.5 g/dL Hematocrit 30.7 #L 41.0-53.0 % Mean Corpuscular Volume 89.3 80.0-100.0 fL Mean Corpuscular Hemoglobin 30.3 28.0-32.0 pg Mean Corpuscular Hemoglobin Concent 33.9 32.0-36.0 g/dL Red Cell Distribution Width 14.2 11.8-14.3 % Platelet Count 251 140-450 10^3/uL Mean Platelet Volume 7.7 6.9-10.8 fL Neutrophils (%) (Auto) 49.5 37.0-80.0 % Lymphocytes (%) (Auto) 37.6 10.0-50.0 % Monocytes (%) (Auto) 9.9 0.0-12.0 % Eosinophils (%) (Auto) 2.5 0.0-7.0 % Basophils (%) (Auto) 0.5 0.0-2.0 % Neutrophils # (Auto) 3.6 1.6-8.6 10 ^3/uL Lymphocytes # (Auto) 2.7 0.4-5.4 10 ^3/uL Monocytes # (Auto) 0.7 0-1.3 10 ^3/uL Eosinophils # (Auto) 0.2 0-0.8 10 ^3/uL Basophils # (Auto) 0 0-0.2 10 ^3/uL Nucleated Red Blood Cells 0.4 % Sodium Level 140 136-145 mmol/L Potassium Level 4.3 3.5-5.1 mmol/L Chloride Level 103 98-107 mmol/L Carbon Dioxide Level 23 20-31 mmol/L Anion Gap 14 5-15 Blood Urea Nitrogen 46 H 9-23 mg/dL Creatinine 7.20 H 0.700-1.30 mg/dL Glomerular Filtration Rate Calc 8 >90 mL/min BUN/Creatinine Ratio 6.4 L 10.0-20.0 Serum Glucose 187 H 74-106 mg/dL Calcium Level 9.5 8.7-10.4 mg/dL Total Bilirubin < 0.2 L 0.2-1.0 mg/dL Aspartate Amino Transferase (AST) 11 L 13-40 U/L Alanine Aminotransferase (ALT) 11 7-40 U/L Alkaline Phosphatase 97 46-116 U/L Total Protein 6.0 5.7-8.2 g/dL Albumin 3.8 3.2-4.8 g/dL Test 08/15/24 20:48 08/15/24 18:05 Range/Units Urine Color Light-yellow Yellow Urine Clarity Clear Clear Urine pH 7.5 5.0-9.0 Urine Specific [place] 1.012 1.001-1.035 Urine Protein 3+ H Negative Urine Ketones Negative Negative Urine Blood Negative Negative /uL Urine Nitrite Negative Negative Urine Bilirubin Negative Negative Urine Urobilinogen Normal Negative mg/dL Urine Leukocyte Esterase Negative Negative /uL Urine RBC 1 0 - 3 /hpf Urine Microscopic WBC 4 H 0-3 /HPF Urine Squamous Epithelial Cells Few <5 /hpf Urine Bacteria None seen None Seen /hpf Urine Glucose 4+ H Normal mg/dL White Blood Count 6.5 4.4-10.8 10^3/uL Red Blood Count 3.97 L 4.5-5.90 10^6/uL Hemoglobin 12.0 L 13.5-17.5 g/dL Hematocrit 34.6 L 41.0-53.0 % Mean Corpuscular Volume 87.1 80.0-100.0 fL Mean Corpuscular Hemoglobin 30.3 28.0-32.0 pg Mean Corpuscular Hemoglobin Concent 34.8 32.0-36.0 g/dL Red Cell Distribution Width 13.9 11.8-14.3 % Platelet Count 300 140-450 10^3/uL Mean Platelet Volume 7.3 6.9-10.8 fL Neutrophils (%) (Auto) 52.4 37.0-80.0 % Lymphocytes (%) (Auto) 35.7 10.0-50.0 % Monocytes (%) (Auto) 8.4 0.0-12.0 % Eosinophils (%) (Auto) 2.9 0.0-7.0 % Basophils (%) (Auto) 0.6 0.0-2.0 % Neutrophils # (Auto) 3.4 1.6-8.6 10 ^3/uL Lymphocytes # (Auto) 2.3 0.4-5.4 10 ^3/uL Monocytes # (Auto) 0.5 0-1.3 10 ^3/uL Eosinophils # (Auto) 0.2 0-0.8 10 ^3/uL Basophils # (Auto) 0 0-0.2 10 ^3/uL Nucleated Red Blood Cells 0.1 % Sodium Level 138 136-145 mmol/L Potassium Level 4.0 3.5-5.1 mmol/L Chloride Level 100 98-107 mmol/L Carbon Dioxide Level 24 20-31 mmol/L Anion Gap 14 5-15 Blood Urea Nitrogen 41 H 9-23 mg/dL Creatinine 6.28 H 0.700-1.30 mg/dL Glomerular Filtration Rate Calc 10 >90 mL/min BUN/Creatinine Ratio 6.5 L 10.0-20.0 Serum Glucose 274 H 74-106 mg/dL Calcium Level 10.0 8.7-10.4 mg/dL Total Bilirubin < 0.2 L 0.2-1.0 mg/dL Aspartate Amino Transferase (AST) 11 L 13-40 U/L Alanine Aminotransferase (ALT) 12 7-40 U/L Alkaline Phosphatase 109 46-116 U/L B-Type Natriuretic Peptide 269.52 0-100 pg/mL Total Protein 6.7 5.7-8.2 g/dL Albumin 4.2 3.2-4.8 g/dL Assessment IMP: 1) ESRD on dialysis 2) hypertension 3) anemia 4) status post mechanical fall REC: - we will continue with thrice weekly maintenance hemodialysis inpatient. - next dialysis will be August 17 - we will check BMP, phos, CBC in a.m. - clinically stable from Nephrology perspective. Thank you for the consultation. Plan discussed with: Patient DANIELE FREEDMAN MD August 16, 2024 19:21
[2024-08-16 19:35] VITALS: PULSE 88; RESP 12; O2SAT 96
[2024-08-17 08:00] VITALS: PULSE 78; RESP 16; O2SAT 97
--- NOTE | 2024-08-17 09:35 | DVHPN2 ---
Progress Note Date Seen: August 17, 2024 Has the PT tested + for MRSA If YES, has PT been informed?: No Medical Necessity Reason Pt with a Central, PICC or Fol: No Subjective Review of Systems: Deferred Objective vital signs Vital Sign Date Time Temp Pulse Resp B/P (MAP) Pulse Ox O2 Delivery O2 Flow Rate FiO2 08/17/24 09:15 79 13 156/77 (103) 96 08/16/24 19:57 98.8 98.8 08/16/24 19:35 Nasal Cannula* 2 28 medications Current Medications Medications Dose Ordered Sig/Misty Route Start Time Stop Time Status Last Admin Dose Admin Apixaban 2.5 mg BID PO 08/15/24 22:00 08/16/24 22:11 2.5 MG Bumetanide 1 mg DAILY PO 08/16/24 10:00 08/16/24 10:33 1 MG Carvedilol 12.5 mg Q12HR PO 08/15/24 22:00 08/16/24 22:11 12.5 MG Atorvastatin Calcium 40 mg DAILY PO 08/16/24 10:00 08/16/24 10:31 40 MG Levetiracetam 1,000 mg BID PO 08/15/24 22:00 08/16/24 22:10 1,000 MG Patient Own Medication 1 drop BID LEFTEYE 08/16/24 10:00 Acetaminophen 650 mg Q6HP PRN PO 08/15/24 21:00 Acetaminophen/ Hydrocodone Bitart 1 tab Q4HP PRN PO 08/15/24 21:00 08/16/24 19:56 1 TAB Quetiapine Fumarate 50 mg HS PO 08/15/24 22:15 08/16/24 22:12 50 MG Diagnostic Test (Pha) 1 strip ACHS 08/16/24 07:00 08/16/24 17:00 1 STRIP Insulin Human Regular ACHS SC 08/16/24 07:00 08/16/24 17:36 3 UNITS Dextrose 50 ml UD PRN IV 08/15/24 22:15 Ondansetron HCl 4 mg Q8HPRN PRN IV 08/15/24 23:15 08/15/24 23:52 4 MG Heparin Sodium (Porcine) 5,000 units Q12HR SC 08/16/24 10:00 UNV Pantoprazole Sodium 40 mg DAILY IV 08/17/24 10:00 Examination: GENERAL:Normal, LUNGS:Normal, CVS:Abnormal, MSK:Abnormal laboratory and microbiology Laboratory Tests 08/16/24 04:50 Test 08/16/24 04:50 Range/Units Serum Glucose 187 H 74-106 mg/dL Problem List/Assessment/Plan Problem List/Assessment/Plan ESRD HTN traumatic fall with clavicular fx seizure disorder HD today renal diet supportive care recommend post HD keppra supplement due to dialyzablity Plan discussed with: Patient My Orders My Orders Orders - SHAHID GARSIA MD Procedure Category Date Status Time Consistent DIET 08/17/24 Transmitted Carb(Ccho)Diabetes Breakfast Hemodialysis Orders ORDERS 08/17/24 Transmitted 09:05 Dialysis Nursing YOLY 08/17/24 In Process Message 09:05 Document Fluid Input YOLY 08/17/24 In Process And Outpu 09:05 SHAHID GARSIA MD August 17, 2024 09:35
--- NOTE | 2024-08-17 10:46 | DVHPNRES ---
Progress Note Date Seen: August 17, 2024 Resident Creating Document: GULSHAN JIMENEZ RESIDENT Has the PT tested + for MRSA If YES, has PT been informed?: No Medical Necessity Reason Pt with a Central, PICC or Fol: No Subjective Review of Systems Patient seen and examined at the bedside. No new complaints except pain. Patient is going to having hemodialysis today. Patient reports: No new complaints Objective vital signs Vital Sign Date Time Temp Pulse Resp B/P (MAP) Pulse Ox O2 Delivery O2 Flow Rate FiO2 08/17/24 09:15 79 13 156/77 (103) 96 08/17/24 08:00 Room Air* 0 21 08/16/24 19:57 98.8 98.8 medications Current Medications Medications Dose Ordered Sig/Misty Route Start Time Stop Time Status Last Admin Dose Admin Apixaban 2.5 mg BID PO 08/15/24 22:00 08/16/24 22:11 2.5 MG Bumetanide 1 mg DAILY PO 08/16/24 10:00 08/16/24 10:33 1 MG Carvedilol 12.5 mg Q12HR PO 08/15/24 22:00 08/16/24 22:11 12.5 MG Atorvastatin Calcium 40 mg DAILY PO 08/16/24 10:00 08/16/24 10:31 40 MG Levetiracetam 1,000 mg BID PO 08/15/24 22:00 08/16/24 22:10 1,000 MG Patient Own Medication 1 drop BID LEFTEYE 08/16/24 10:00 Acetaminophen 650 mg Q6HP PRN PO 08/15/24 21:00 Acetaminophen/ Hydrocodone Bitart 1 tab Q4HP PRN PO 08/15/24 21:00 08/16/24 19:56 1 TAB Quetiapine Fumarate 50 mg HS PO 08/15/24 22:15 08/16/24 22:12 50 MG Diagnostic Test (Pha) 1 strip ACHS 08/16/24 07:00 08/16/24 17:00 1 STRIP Insulin Human Regular ACHS SC 08/16/24 07:00 08/16/24 17:36 3 UNITS Dextrose 50 ml UD PRN IV 08/15/24 22:15 Ondansetron HCl 4 mg Q8HPRN PRN IV 08/15/24 23:15 08/15/24 23:52 4 MG Heparin Sodium (Porcine) 5,000 units Q12HR SC 08/16/24 10:00 UNV Pantoprazole Sodium 40 mg DAILY IV 08/17/24 10:00 Examination Pt is lying on bed, generalized body tenderness due to fall. General Appearance: Alert, Oriented X3, Cooperative, Not in acute distress HEENT: Atraumatic, Mucous membranes moist/pink Respiratory: Clear to auscultation, Normal air movement, No added sounds Cardiovascular: Regular rate, Normal S1, Normal S2, No murmurs, tenderness in left chest Abdominal: Active bowel sounds, Soft, no distention, no tenderness Extremities: No edema, Normal pulses, No tenderness/swelling Skin: No Significant rash, except past surgical scars Neuro: Normal speech, sensorimotor deficits none Psych/Mental Status: Mental status NL, Mood NL Nurse was there as sharperone during examination laboratory and microbiology Laboratory Tests 08/16/24 04:50 Test 08/16/24 04:50 Range/Units Serum Glucose 187 H 74-106 mg/dL Labs and/or images reviewed: Labs reviewed by me, Image(s) reviewed by me Problem List/Assessment/Plan Problem List/Assessment/Plan # Mechanical Fall With LOC # Syncope likely orthostatic/ arrhythmias # dizziness/lightheadedness. # ? orthostatic hypotension vs arrhythmia vs seizure - Monitor telemetry for arrhythmias. - Orthostatic vitals. - Neurology consult if seizure suspected. - Continue fall precautions. - Head CT: normal, no acute changes - X-rays: no fractures. # Chronic mid left clavicle fracture. - evident on x-ray - pain management # Acute on Chronic HFrEF (EF 40%) # medication non-adherence; # Hx of methamphetamine use may contribute to cardiomyopathy. # Paroxysmal Atrial Fibrillation (currently in sinus rhythm) with a secondary hypercoagulable state, on Eliquis - Monitor for rate/rhythm changes on telemetry. - Continue guideline-directed medical therapy (GDMT): carvedilol, bumetanide. - Monitor weight, I/Os, BNP, and renal function. - Consider echocardiogram if not recently done. -Substance use counseling. - Toxicology screen. # ESRD on Hemodialysis - Nephrology consult for dialysis coordination. - correct electrolyte imbalance - monitor lab -hemodialysis today # Type 2 Diabetes Mellitus (insulin-dependent) - Monitor blood glucose. - Sliding scale - HbA1c # History of Seizure - Continue Keppra 1000 mg BID. - seizure precautions # Schizophrenia # Medication adherence unclear. - Continue quetiapine 50 mg PO. - Psychiatry consult if behavioral concerns arise. # Medication Non-Adherence / Drug Use - counseled regarding this was benefits of medication adherence # Dyslipidemia - Continue atorvastatin PO. Medications on Admission Apixaban anticoagulation for AF. Atorvastatin for dyslipidemia. Bumetanide loop diuretic for volume control. Carvedilol 12.5 mg BID beta-fredo for HFrEF. Keppra 1000 mg BID seizure prophylaxis. Quetiapine 50 mg PO antipsychotic for schizophrenia. [place] 5 mg PRN for pain management. Protonix Eliquis Renal diet Goals of care discussed with the patient for more than 27 minutes: Full code status Case discussed with Dr. Xiao, patient, nurse Plan discussed with: Patient My Orders My Orders Orders - GULSHAN JIMENEZ RESIDENT Procedure Category Date Status Time L Clavicle Complete XY 08/16/24 Resulted Xray 11:18 Pantoprazole PHA 08/17/24 In Process (Protonix) 10:00 Comprehensive LAB 08/17/24 Logged Metabolic Panel 04:00 Complete Blood Count LAB 08/17/24 Logged 04:00 Magnesium LAB 08/17/24 Logged 04:00 Hemoglobin A1c LAB 08/17/24 Logged 04:00 GULSHAN JIMENEZ RESIDENT August 17, 2024 10:46
[2024-08-17 11:03] LABS: Basophils # (auto) 0 10 ^3/uL (0-0.2); Basophils % (auto) 0.6 % (0.0-2.0); Eosinophils # (auto) 0.2 10 ^3/uL (0-0.8); Eosinophils % (auto) 3.3 % (0.0-7.0); Hemoglobin 10.3 g/dL (13.5-17.5); Lymphocytes # (auto) 2.1 10 ^3/uL (0.4-5.4); Lymphocytes % (auto) 28.3 % (10.0-50.0); Mean Corpuscular Hemoglobin 30.2 pg (28.0-32.0); Mean Corpuscular Hgb Conc. 34.4 g/dL (32.0-36.0); Mean Corpuscular Volume 87.9 fL (80.0-100.0); Monocytes # (auto) 0.7 10 ^3/uL (0-1.3); Monocytes % (auto) 9.3 % (0.0-12.0); Neutrophils # (auto) 4.3 10 ^3/uL (1.6-8.6); Neutrophils % (auto) 58.5 % (37.0-80.0); Nucleated Red Blood Cells % 0.1 %; Platelet Count (auto) 228 10^3/uL (140-450); Red Blood Cells 3.42 10^6/uL (4.5-5.90); Red Cell Distribution Width 14.5 % (11.8-14.3); White Blood Cell 7.4 10^3/uL (4.4-10.8)
[2024-08-17 11:20] LABS: Alanine Aminotransferase 14 U/L (7-40); Albumin 3.8 g/dL (3.2-4.8); Alkaline Phosphatase 98 U/L (46-116); Anion Gap 10 (5-15); BUN/Creatinine Ratio 7.7 (10.0-20.0); Calcium 9.6 mg/dL (8.7-10.4); Carbon Dioxide 23 mmol/L (20-31); Chloride 106 mmol/L (98-107); Magnesium 1.8 mg/dL (1.6-2.6); Sodium 139 mmol/L (136-145)
[2024-08-17 11:21] LABS: Aspartate Aminotransferase 10 U/L (13-40); Blood Urea Nitrogen 61 mg/dL (9-23); Glucose 211 mg/dL (74-106)
[2024-08-17 11:23] LABS: Bilirubin, Total < 0.2 mg/dL (0.2-1.0)
[2024-08-17 11:29] LABS: Potassium 5.6 mmol/L (3.5-5.1)
[2024-08-17] MEDS: PANTOPRAZOLE 40 MG/10 ML VIAL INJ IV SCH (13:20)
[2024-08-17] MEDS: SODIUM CHL 0.9% 1000 ML BAG XX ONE (16:59)
[2024-08-17 17:54] VITALS: PULSE 74; RESP 18; O2SAT 96
[2024-08-17 20:00] VITALS: PULSE 92
[2024-08-17 21:00] VITALS: BP 128/68; PULSE 82; RESP 20; TEMP 97.8; O2SAT 95
[2024-08-17 23:35] LABS: Amphetamine Screen, Urine Neg (NEGATIVE); Barbiturate Scree,Urine Neg (NEGATIVE); Benzodiazephine Screen, Urine Neg (NEGATIVE); Cannabinoid Screen, Urine Neg (NEGATIVE); Cocaine Screen, Urine Neg (NEGATIVE); Opiate Scree,Urine Neg (NEGATIVE); Phencyclidine Screen, Urine Neg (NEGATIVE)
[2024-08-18] VITALS (8 sets, daily range): BP systolic 122–157; BP diastolic 68–108; PULSE 71–101; RESP 17–20; TEMP 97.5–98.1; O2SAT 95–97
[2024-08-18 08:11] LABS: Basophils # (auto) 0 10 ^3/uL (0-0.2); Basophils % (auto) 0.4 % (0.0-2.0); Eosinophils # (auto) 0.2 10 ^3/uL (0-0.8); Eosinophils % (auto) 3.1 % (0.0-7.0); Hemoglobin 10.9 g/dL (13.5-17.5); Lymphocytes % (auto) 31.4 % (10.0-50.0); Mean Corpuscular Hemoglobin 30.6 pg (28.0-32.0); Mean Corpuscular Volume 87.5 fL (80.0-100.0); Monocytes # (auto) 0.5 10 ^3/uL (0-1.3); Monocytes % (auto) 8.5 % (0.0-12.0); Neutrophils # (auto) 3.6 10 ^3/uL (1.6-8.6); Neutrophils % (auto) 56.6 % (37.0-80.0); Nucleated Red Blood Cells % 0.1 %; Platelet Count (auto) 242 10^3/uL (140-450); Red Blood Cells 3.55 10^6/uL (4.5-5.90); Red Cell Distribution Width 14.1 % (11.8-14.3); White Blood Cell 6.4 10^3/uL (4.4-10.8)
[2024-08-18 08:16] LABS: Alanine Aminotransferase 13 U/L (7-40); Alkaline Phosphatase 100 U/L (46-116); Anion Gap 12 (5-15); BUN/Creatinine Ratio 7.5 (10.0-20.0); Calcium 9.6 mg/dL (8.7-10.4); Carbon Dioxide 23 mmol/L (20-31); Chloride 106 mmol/L (98-107); Potassium 4.6 mmol/L (3.5-5.1); Sodium 141 mmol/L (136-145); Total Protein 6.4 g/dL (5.7-8.2)
[2024-08-18 08:28] LABS: Aspartate Aminotransferase 11 U/L (13-40); Bilirubin, Total < 0.2 mg/dL (0.2-1.0); Blood Urea Nitrogen 53 mg/dL (9-23); Glucose 168 mg/dL (74-106)
--- NOTE | 2024-08-18 11:15 | DVHPNRES ---
Progress Note Date Seen: August 18, 2024 Resident Creating Document: GULSHAN JIMENEZ RESIDENT Has the PT tested + for MRSA If YES, has PT been informed?: No Medical Necessity Reason Pt with a Central, PICC or Fol: No Subjective Review of Systems Patient seen and examined at the bedside. Patient is reporting having pain. Finished HD yesterday. Physical therapy on board Objective vital signs Vital Sign Date Time Temp Pulse Resp B/P (MAP) Pulse Ox O2 Delivery O2 Flow Rate FiO2 08/18/24 09:00 97.5 101 20 133/108 (116) 95 97.5 08/17/24 20:00 Room Air* 0 21 Total Intake and Output 08/17/24 08/17/24 08/18/24 15:00 23:00 07:00 Intake Total 300 ml Output Total 450 ml Balance -150 ml medications Current Medications Medications Dose Ordered Sig/Misty Route Start Time Stop Time Status Last Admin Dose Admin Apixaban 2.5 mg BID PO 08/15/24 22:00 08/17/24 22:13 2.5 MG Bumetanide 1 mg DAILY PO 08/16/24 10:00 08/17/24 13:17 1 MG Carvedilol 12.5 mg Q12HR PO 08/15/24 22:00 08/17/24 22:14 12.5 MG Atorvastatin Calcium 40 mg DAILY PO 08/16/24 10:00 08/17/24 13:20 40 MG Levetiracetam 1,000 mg BID PO 08/15/24 22:00 08/17/24 22:14 1,000 MG Patient Own Medication 1 drop BID LEFTEYE 08/16/24 10:00 Acetaminophen 650 mg Q6HP PRN PO 08/15/24 21:00 Acetaminophen/ Hydrocodone Bitart 1 tab Q4HP PRN PO 08/15/24 21:00 08/17/24 22:13 1 TAB Quetiapine Fumarate 50 mg HS PO 08/15/24 22:15 08/17/24 22:13 50 MG Diagnostic Test (Pha) 1 strip ACHS 08/16/24 07:00 08/18/24 06:33 1 STRIP Insulin Human Regular ACHS SC 08/16/24 07:00 08/18/24 06:37 2 UNITS Dextrose 50 ml UD PRN IV 08/15/24 22:15 Ondansetron HCl 4 mg Q8HPRN PRN IV 08/15/24 23:15 08/17/24 22:12 4 MG Heparin Sodium (Porcine) 5,000 units Q12HR SC 08/16/24 10:00 UNV Pantoprazole Sodium 40 mg DAILY IV 08/17/24 10:00 08/17/24 13:20 40 MG Examination Pt is lying on bed, generalized body tenderness due to fall. General Appearance: Alert, Oriented X3, Cooperative, Not in acute distress HEENT: Atraumatic, Mucous membranes moist/pink Respiratory: Clear to auscultation, Normal air movement, No added sounds Cardiovascular: Regular rate, Normal S1, Normal S2, No murmurs, tenderness in left chest Abdominal: Active bowel sounds, Soft, no distention, no tenderness Extremities: No edema, Normal pulses, No tenderness/swelling Skin: No Significant rash, except past surgical scars Neuro: Normal speech, sensorimotor deficits none Psych/Mental Status: Mental status NL, Mood NL Nurse was there as sharperone during examination laboratory and microbiology Laboratory Tests 08/18/24 05:34 Test 08/18/24 05:34 Range/Units Serum Glucose 168 H 74-106 mg/dL Labs and/or images reviewed: Labs reviewed by me, Image(s) reviewed by me Problem List/Assessment/Plan Problem List/Assessment/Plan # Mechanical Fall With LOC # Syncope likely orthostatic/ arrhythmias # dizziness/lightheadedness. # ? orthostatic hypotension vs arrhythmia vs seizure - Monitor telemetry for arrhythmias. - Orthostatic vitals. - Neurology consult if seizure suspected. - Continue fall precautions. - Head CT: normal, no acute changes - X-rays: no fractures. Except clavicle fracture - physical therapy on board # Chronic mid left clavicle fracture. - evident on x-ray - pain management # Acute on Chronic HFrEF (EF 40%) # medication non-adherence; # Hx of methamphetamine use may contribute to cardiomyopathy. # Paroxysmal Atrial Fibrillation (currently in sinus rhythm) with a secondary hypercoagulable state, on Eliquis - Monitor for rate/rhythm changes on telemetry. - Continue guideline-directed medical therapy (GDMT): carvedilol, bumetanide. - Monitor weight, I/Os, BNP, and renal function. - Consider echocardiogram if not recently done. -Substance use counseling. - Toxicology screen. Negative # ESRD on Hemodialysis - Nephrology consult for dialysis coordination. - correct electrolyte imbalance - monitor lab - hemodialysis yesterday # Type 2 Diabetes Mellitus (insulin-dependent) - Monitor blood glucose. - Sliding scale - HbA1c # History of Seizure - Continue Keppra 1000 mg BID. - seizure precautions # Schizophrenia # Medication adherence unclear. - Continue quetiapine 50 mg PO. - Psychiatry consult if behavioral concerns arise. # Medication Non-Adherence / Drug Use - counseled regarding this was benefits of medication adherence # Dyslipidemia - Continue atorvastatin PO. Medications on Admission Apixaban anticoagulation for AF. Atorvastatin for dyslipidemia. Bumetanide loop diuretic for volume control. Carvedilol 12.5 mg BID beta-fredo for HFrEF. Keppra 1000 mg BID seizure prophylaxis. Quetiapine 50 mg PO antipsychotic for schizophrenia. [place] 5 mg PRN for pain management. Protonix Eliquis Renal diet Goals of care discussed with the patient for more than 27 minutes: Full code status Case discussed with Dr. Xiao, patient, nurse Plan discussed with: Patient My Orders My Orders Orders - GULSHAN JIMENEZ RESIDENT Procedure Category Date Status Time Mrsa Screen CHANDNI 08/17/24 Logged 23:30 Mrsa Screen CHANDNI 08/18/24 In Process 01:40 GULSHAN JIMENEZ RESIDENT August 18, 2024 11:15
--- NOTE | 2024-08-18 12:14 | DVHPN2 ---
Progress Note Date Seen: August 18, 2024 Has the PT tested + for MRSA If YES, has PT been informed?: No Medical Necessity Reason Pt with a Central, PICC or Fol: No Subjective Patient reports: Feels better Review of Systems: Deferred Objective vital signs Vital Sign Date Time Temp Pulse Resp B/P (MAP) Pulse Ox O2 Delivery O2 Flow Rate FiO2 08/18/24 11:34 101 133/108 08/18/24 09:00 97.5 20 95 97.5 08/17/24 20:00 Room Air* 0 21 Total Intake and Output 08/17/24 08/17/24 08/18/24 15:00 23:00 07:00 Intake Total 300 ml Output Total 450 ml Balance -150 ml medications Current Medications Medications Dose Ordered Sig/Misty Route Start Time Stop Time Status Last Admin Dose Admin Apixaban 2.5 mg BID PO 08/15/24 22:00 08/18/24 11:34 2.5 MG Bumetanide 1 mg DAILY PO 08/16/24 10:00 08/18/24 11:34 1 MG Carvedilol 12.5 mg Q12HR PO 08/15/24 22:00 08/18/24 11:34 12.5 MG Atorvastatin Calcium 40 mg DAILY PO 08/16/24 10:00 08/18/24 11:40 40 MG Levetiracetam 1,000 mg BID PO 08/15/24 22:00 08/18/24 11:32 1,000 MG Patient Own Medication 1 drop BID LEFTEYE 08/16/24 10:00 Acetaminophen 650 mg Q6HP PRN PO 08/15/24 21:00 Acetaminophen/ Hydrocodone Bitart 1 tab Q4HP PRN PO 08/15/24 21:00 08/17/24 22:13 1 TAB Quetiapine Fumarate 50 mg HS PO 08/15/24 22:15 08/17/24 22:13 50 MG Diagnostic Test (Pha) 1 strip ACHS 08/16/24 07:00 08/18/24 11:53 1 STRIP Insulin Human Regular ACHS SC 08/16/24 07:00 08/18/24 11:53 3 UNITS Dextrose 50 ml UD PRN IV 08/15/24 22:15 Ondansetron HCl 4 mg Q8HPRN PRN IV 08/15/24 23:15 08/17/24 22:12 4 MG Heparin Sodium (Porcine) 5,000 units Q12HR SC 08/16/24 10:00 UNV Pantoprazole Sodium 40 mg DAILY IV 08/17/24 10:00 08/18/24 11:35 40 MG Examination: GENERAL:Normal, CVS:Normal, SKIN:Normal laboratory and microbiology Laboratory Tests 08/18/24 05:34 Test 08/18/24 05:34 Range/Units Serum Glucose 168 H 74-106 mg/dL Problem List/Assessment/Plan Problem List/Assessment/Plan ESRD HTN traumatic fall with clavicular fx seizure disorder HD tomorrow consistent with outpatient schedule renal diet supportive care monitor keppra dosing Plan discussed with: Patient SHAHID GARSIA MD August 18, 2024 12:14
[2024-08-19] VITALS (9 sets, daily range): BP systolic 133–189; BP diastolic 69–109; PULSE 64–98; RESP 16–20; TEMP 97.3–98.9; O2SAT 96–99
[2024-08-19 06:51] LABS: Calcium 9.8 mg/dL (8.7-10.4); Potassium 4.8 mmol/L (3.5-5.1); Sodium 142 mmol/L (136-145)
[2024-08-19 06:52] LABS: Anion Gap 10 (5-15); Carbon Dioxide 24 mmol/L (20-31)
[2024-08-19 06:57] LABS: BUN/Creatinine Ratio 8.5 (10.0-20.0)
[2024-08-19 07:00] LABS: Blood Urea Nitrogen 64 mg/dL (9-23); Chloride 108 mmol/L (98-107); Glucose 177 mg/dL (74-106)
--- NOTE | 2024-08-19 11:23 | DVHPN2 ---
Progress Note Date Seen: August 19, 2024 Has the PT tested + for MRSA If YES, has PT been informed?: No Medical Necessity Reason Pt with a Central, PICC or Fol: No Objective vital signs Vital Sign Date Time Temp Pulse Resp B/P (MAP) Pulse Ox O2 Delivery O2 Flow Rate FiO2 08/19/24 09:59 189/101 08/19/24 09:00 98.9 88 16 98 98.9 08/19/24 08:00 Room Air* 0 21 Total Intake and Output 08/18/24 08/18/24 08/19/24 15:00 23:00 07:00 Intake Total 800 ml 800 ml Output Total 750 ml 100 ml Balance 50 ml 700 ml medications Current Medications Medications Dose Ordered Sig/Misty Route Start Time Stop Time Status Last Admin Dose Admin Apixaban 2.5 mg BID PO 08/15/24 22:00 08/19/24 10:13 2.5 MG Bumetanide 1 mg DAILY PO 08/16/24 10:00 08/18/24 11:34 1 MG Carvedilol 12.5 mg Q12HR PO 08/15/24 22:00 08/18/24 21:11 12.5 MG Atorvastatin Calcium 40 mg DAILY PO 08/16/24 10:00 08/19/24 10:13 40 MG Levetiracetam 1,000 mg BID PO 08/15/24 22:00 08/19/24 10:13 1,000 MG Patient Own Medication 1 drop BID LEFTEYE 08/16/24 10:00 Acetaminophen 650 mg Q6HP PRN PO 08/15/24 21:00 Acetaminophen/ Hydrocodone Bitart 1 tab Q4HP PRN PO 08/15/24 21:00 08/19/24 10:24 1 TAB Quetiapine Fumarate 50 mg HS PO 08/15/24 22:15 08/18/24 21:10 50 MG Diagnostic Test (Pha) 1 strip ACHS 08/16/24 07:00 08/19/24 05:12 1 STRIP Insulin Human Regular ACHS SC 08/16/24 07:00 08/19/24 05:19 3 UNITS Dextrose 50 ml UD PRN IV 08/15/24 22:15 Ondansetron HCl 4 mg Q8HPRN PRN IV 08/15/24 23:15 08/18/24 21:28 4 MG Heparin Sodium (Porcine) 5,000 units Q12HR SC 08/16/24 10:00 UNV Pantoprazole Sodium 40 mg DAILY IV 08/17/24 10:00 08/19/24 10:13 40 MG Mupirocin 1 applic BID EACHNOSTRI 08/19/24 22:00 08/24/24 21:59 UNV Examination: GENERAL:Normal, CVS:Normal, ABDOMEN:Normal laboratory and microbiology Laboratory Tests 08/19/24 05:14 08/18/24 05:34 Test 08/19/24 05:14 Range/Units Serum Glucose 177 H 74-106 mg/dL Microbiology Date/Time Source Procedure Growth Status 08/17/24 23:57 Nose MRSA Screen - Final Complete Problem List/Assessment/Plan Problem List/Assessment/Plan ESRD HTN traumatic fall with clavicular fx seizure disorder HD today consistent with outpatient schedule renal diet supportive care monitor keppra dosing Plan discussed with: Patient Dietary Evaluation Review Comments: CCHO-60 Renal Diet Expected Outcomes/Goals: controlled DM, less uremic symptoms SHAHID GARSIA MD August 19, 2024 11:23
--- NOTE | 2024-08-19 11:45 | DVHDSRES ---
Discharge Summary Date of Admission Resident Creating Document: GULSHAN JIMENEZ RESIDENT August 15, 2024 at 20:48 Date of Discharge: August 20, 2024 (Planned discharge was for August 19, 2024. [employer] to discharge the patient to SNF on August 20, 2024 (could be delayed also)) Admitting Diagnosis Syncope Labs/Diagnostic Data: Laboratory Results Test 08/19/24 05:14 08/19/24 05:12 08/18/24 05:34 08/17/24 23:00 Sodium Level 142 mmol/L (136-145) Potassium Level 4.8 mmol/L (3.5-5.1) Chloride Level 108 mmol/L (98-107) Carbon Dioxide Level 24 mmol/L (20-31) Anion Gap 10 (5-15) Blood Urea Nitrogen 64 mg/dL (9-23) Creatinine 7.51 mg/dL (0.700-1.30) Glomerular Filtration Rate Calc 8 mL/min (>90) BUN/Creatinine Ratio 8.5 (10.0-20.0) Serum Glucose 177 mg/dL (74-106) Calcium Level 9.8 mg/dL (8.7-10.4) POC Glucose 177 mg/dl (70-106) White Blood Count 6.4 10^3/uL (4.4-10.8) Red Blood Count 3.55 10^6/uL (4.5-5.90) Hemoglobin 10.9 g/dL (13.5-17.5) Hematocrit 31.0 % (41.0-53.0) Mean Corpuscular Volume 87.5 fL (80.0-100.0) Mean Corpuscular Hemoglobin 30.6 pg (28.0-32.0) Mean Corpuscular Hemoglobin Concent 35.0 g/dL (32.0-36.0) Red Cell Distribution Width 14.1 % (11.8-14.3) Platelet Count 242 10^3/uL (140-450) Mean Platelet Volume 7.7 fL (6.9-10.8) Neutrophils (%) (Auto) 56.6 % (37.0-80.0) Lymphocytes (%) (Auto) 31.4 % (10.0-50.0) Monocytes (%) (Auto) 8.5 % (0.0-12.0) Eosinophils (%) (Auto) 3.1 % (0.0-7.0) Basophils (%) (Auto) 0.4 % (0.0-2.0) Neutrophils # (Auto) 3.6 10 ^3/uL (1.6-8.6) Lymphocytes # (Auto) 2.0 10 ^3/uL (0.4-5.4) Monocytes # (Auto) 0.5 10 ^3/uL (0-1.3) Eosinophils # (Auto) 0.2 10 ^3/uL (0-0.8) Basophils # (Auto) 0 10 ^3/uL (0-0.2) Nucleated Red Blood Cells 0.1 % Total Bilirubin < 0.2 mg/dL (0.2-1.0) Aspartate Amino Transferase (AST) 11 U/L (13-40) Alanine Aminotransferase (ALT) 13 U/L (7-40) Alkaline Phosphatase 100 U/L (46-116) Total Protein 6.4 g/dL (5.7-8.2) Albumin 4.0 g/dL (3.2-4.8) Urine Opiates Screen Neg (NEGATIVE) Urine Fentanyl Screen Neg (NEGATIVE) Urine Barbiturates Screen Neg (NEGATIVE) Urine Phencyclidine Screen Neg (NEGATIVE) Urine Amphetamines Screen Neg (NEGATIVE) Urine Benzodiazepines Screen Neg (NEGATIVE) Urine Cocaine Screen Neg (NEGATIVE) Urine Cannabinoids Screen Neg (NEGATIVE) Test 08/17/24 10:38 08/15/24 20:48 08/15/24 18:05 Hemoglobin A1c 8.1 % A1C (<5.7) Magnesium Level 1.8 mg/dL (1.6-2.6) Urine Color Light-yellow (Yellow) Urine Clarity Clear (Clear) Urine pH 7.5 (5.0-9.0) Urine Specific [place] 1.012 (1.001-1.035) Urine Protein 3+ (Negative) Urine Ketones Negative (Negative) Urine Blood Negative /uL (Negative) Urine Nitrite Negative (Negative) Urine Bilirubin Negative (Negative) Urine Urobilinogen Normal mg/dL (Negative) Urine Leukocyte Esterase Negative /uL (Negative) Urine RBC 1 /hpf (0 - 3) Urine Microscopic WBC 4 /HPF (0-3) Urine Squamous Epithelial Cells Few /hpf (<5) Urine Bacteria None seen /hpf (None Seen) Urine Glucose 4+ mg/dL (Normal) B-Type Natriuretic Peptide 269.52 pg/mL (0-100) Other Laboratory Tests 08/19/24 05:14 08/18/24 05:34 Brief Hx & Hospital Course: Stu Goins is a 53-year-old male with a complex medical history including end-stage renal disease (ESRD) on hemodialysis, heart failure with reduced ejection fraction (HFrEF, EF 40%), paroxysmal atrial fibrillation (currently in sinus rhythm), schizophrenia, seizure disorder, insulin-dependent type 2 diabetes mellitus, hypertension, and known methamphetamine use. He presented to the emergency department following a mechanical fall at home on 08/15/2024. The patient reports that he was standing while preparing for dialysis when he suddenly fell, landing on his left knee and left shoulder. He states that he does not recall exactly what happened before the fall and believes he may have lost consciousness. After regaining awareness, he experienced dizziness, lightheadedness, nausea, and vomiting, though he is unsure how long he remained on the floor. There was no witnessed seizure activity. He currently endorses pain in the left knee, left shoulder, and both anterior and posterior chest wall. He denies associated symptoms such as diarrhea, fever, chills, or shortness of breath. The patient is noted to be a poor historian, which may limit the reliability of the history. The patient presented following a mechanical fall with a brief loss of consciousness, likely secondary to orthostatic hypotension, accompanied by dizziness and lightheadedness. Telemetry monitoring showed no arrhythmias, and orthostatic vitals were assessed. Head CT was normal with no acute changes, and X-rays revealed no fractures except for a chronic mid-left clavicle fracture, for which pain management was initiated. The patient has a history of acute on chronic heart failure with reduced ejection fraction (EF 40%), attributed in part to medication non-adherence and a history of methamphetamine use. He also has paroxysmal atrial fibrillation, currently in sinus rhythm, and is on Eliquis for anticoagulation. Guideline-directed medical therapy with carvedilol and bumetanide was continued, and telemetry monitoring was maintained. Substance use counseling was provided, and a toxicology screen was negative. The patient also has end-stage renal disease on hemodialysis, with nephrology consulted for coordination and electrolyte management. Type 2 diabetes mellitus, insulin-dependent, was managed with glucose monitoring and a sliding scale insulin regimen. He has a history of seizures, for which Keppra 1000 mg BID was continued, and seizure precautions were maintained. Schizophrenia management included continuation of quetiapine 50 mg PO, with psychiatry consultation available if needed. Medication non-adherence and drug use were addressed with counseling on the importance of adherence. Dyslipidemia was managed with atorvastatin. The patient was hemodynamically stable at discharge, discharging to [facility] facility for physical rehabilitation per PT recommendations and was advised to continue all home medications along with a new prescribed medication as described below. He was also advised to follow a renal diet and continue fall precautions. Follow-up with primary care, cardiology, nephrology, and psychiatry was recommended. Physical examination on Aug 19 2024: Pt is lying on bed, generalized body tenderness due to fall that improved from admission General Appearance: Alert, Oriented X3, Cooperative, Not in acute distress HEENT: Atraumatic, Mucous membranes moist/pink, hemodialysis catheter in place no signs of infection or inflammation Respiratory: Clear to auscultation, Normal air movement, No added sounds Cardiovascular: Regular rate, Normal S1, Normal S2, No murmurs, tenderness in left chest Abdominal: Active bowel sounds, Soft, no distention, no tenderness Extremities: No edema, Normal pulses, No tenderness/swelling Skin: No Significant rash, except past surgical scars Neuro: Normal speech, sensorimotor deficits none Psych/Mental Status: Mental status NL, Mood NL Right chest hemodialysis catheter Nurse was there as premium cancellation clerk during examination Goals of care discussed with the patient for 20 minutes; full code Discussed with Dr. Kenny Consults/Reason for consult Nephrology for hemodialysis Operations or Procedures TECHNIQUE: Left ribs. 6 radiographic views of the rims and chest x-ray were obtained. FINDINGS/IMPRESSION: Hemodialysis catheter in place from the right internal jugular vein with the tip in the right atrium. There is no evidence of acute fracture or dislocation. The visualized joint space is well maintained. The alignment is anatomical. There is no radiopaque foreign body. -- EXAM: XY L KNEE 3V XRAY FINDINGS/IMPRESSION: There is no evidence of acute fracture or dislocation. The visualized joint space is well maintained. The alignment is anatomical. There is no radiopaque foreign body. -- CT CERVICAL WITHOUT CONTRAST IMPRESSION: 1. No evidence of acute cervical spine fracture or traumatic malalignment. -- CT HEAD WITHOUT CONTRAST Impression: No evidence of acute intracranial abnormality. -- Carotid Duplex IMPRESSION: No hemodynamically significant stenosis noted in the right carotid system. No hemodynamically significant stenosis noted in the left carotid system. -- TECHNIQUE: 2 radiographic views of the left clavicle were obtained. FINDINGS/IMPRESSION: Chronic mid left clavicle fracture. Condition at Discharge: Stable Final Diagnosis/Problems List # Mechanical Fall With LOC # Syncope likely orthostatic # Dizziness/lightheadedness. # ? orthostatic hypotension # Chronic mid left clavicle fracture. # Acute on Chronic HFrEF (EF 40%) # medication non-adherence # Hx of methamphetamine use may contribute to cardiomyopathy. # Paroxysmal Atrial Fibrillation (currently in sinus rhythm) with a secondary hypercoagulable state, on Eliquis # ESRD on Hemodialysis # Type 2 Diabetes Mellitus (insulin-dependent) # History of Seizure # Schizophrenia # Medication Non adherence unclear. # Dyslipidemia Discharge Disposition: [facility] Discharge Instruct/Medications Diet: Consistent carbohydrate, Cardiac 2g Na,low cholest Activity: No Restrictions, As Tolerated Follow Up/Referral: [facility] PCP Nephrology for HD Cardiology Psychiatry Medications: Per EMR resume home meds Discharge Statement: "Patient was advised to return to the ER or call 911 if any headaches, dizziness, shortness of breath, chest pain, abdominal pain, bleeding, fevers, or worsening of medical condition. Patient was counseled about treatment plan, medications, possible side effects, patientverbalized understanding. All questions were answered to the best of my ability. This discharge took greater then 30 minutes in planning, reviewing documentation, counseling the patient, and discussing with other team members." ASSESSMENT ASSESSMENT Assessment # Mechanical Fall With LOC # Syncope likely orthostatic # Dizziness/lightheadedness. # ? orthostatic hypotension # Chronic mid left clavicle fracture. # Acute on Chronic HFrEF (EF 40%) # medication non-adherence # Hx of methamphetamine use may contribute to cardiomyopathy. # Paroxysmal Atrial Fibrillation (currently in sinus rhythm) with a secondary hypercoagulable state, on Eliquis # ESRD on Hemodialysis # Type 2 Diabetes Mellitus (insulin-dependent) # History of Seizure # Schizophrenia # Medication Non adherence unclear. # Dyslipidemia Addendum Addendum Addendum I was physically present for the [place] portions of the service provided to patient by THE RESIDENT. I have reviewed the documentation, discussed the case with resident and agree with the resident's documentation except as noted. Also the patient's clinical case was discussed with the patient's nurse. This medical document was created using an electronic medical record system with computerized dictation system. Although this document has been carefully reviewed, there might still be some phonetic and typographical errors. These areas are purely typographical due to imperfections of the software programs, and do not reflect any compromise in the patient's medical care. Late signature. Date of Service: August 19, 2024 Billing Provider: LORI KENNY MD Common Visit Codes: [id number] INP/OBS CARE(HIGH) Secondary Visit Codes: [id number] CARE PLAN 30 MINUTES (20 minutes) GULSHAN JIMENEZ RESIDENT August 19, 2024 11:45 LORI KENNY MD August 20, 2024 06:45
[2024-08-19] MEDS: MUPIROCIN 2% OINT 15gm or 22gm FOR MRSA NARES EACHNOSTRI SCH (21:06)
[2024-08-20] VITALS (7 sets, daily range): BP systolic 116–162; BP diastolic 79–97; PULSE 75–89; RESP 16–18; TEMP 97.6–98.5; O2SAT 95–98
[2024-08-20 10:12] LABS: Alanine Aminotransferase 11 U/L (7-40); Albumin 3.8 g/dL (3.2-4.8); Alkaline Phosphatase 86 U/L (46-116); Anion Gap 8 (5-15); BUN/Creatinine Ratio 9.7 (10.0-20.0); Calcium 9.6 mg/dL (8.7-10.4); Carbon Dioxide 27 mmol/L (20-31); Chloride 106 mmol/L (98-107); Potassium 4.7 mmol/L (3.5-5.1); Sodium 141 mmol/L (136-145)
[2024-08-20 10:17] LABS: Aspartate Aminotransferase 9 U/L (13-40); Bilirubin, Total 0.2 mg/dL (0.2-1.0); Blood Urea Nitrogen 54 mg/dL (9-23); Glucose 215 mg/dL (74-106)
--- NOTE | 2024-08-20 10:17 | DVHPN2 ---
Progress Note Date Seen: August 20, 2024 Has the PT tested + for MRSA If YES, has PT been informed?: No Medical Necessity Reason Pt with a Central, PICC or Fol: No Subjective Patient reports: Feels better Review of Systems: Deferred Objective vital signs Vital Sign Date Time Temp Pulse Resp B/P (MAP) Pulse Ox O2 Delivery O2 Flow Rate FiO2 08/20/24 08:33 98.5 88 18 116/79 (91) 96 98.5 08/20/24 07:32 Room Air* 0 21 Total Intake and Output 08/19/24 08/19/24 08/20/24 15:00 23:00 07:00 Intake Total 800 ml 300 ml Balance 800 ml 300 ml medications Current Medications Medications Dose Ordered Sig/Misty Route Start Time Stop Time Status Last Admin Dose Admin Apixaban 2.5 mg BID PO 08/15/24 22:00 08/20/24 08:27 2.5 MG Bumetanide 1 mg DAILY PO 08/16/24 10:00 08/20/24 08:26 1 MG Carvedilol 12.5 mg Q12HR PO 08/15/24 22:00 08/20/24 08:26 12.5 MG Atorvastatin Calcium 40 mg DAILY PO 08/16/24 10:00 08/20/24 08:26 40 MG Levetiracetam 1,000 mg BID PO 08/15/24 22:00 08/20/24 08:24 1,000 MG Patient Own Medication 1 drop BID LEFTEYE 08/16/24 10:00 Acetaminophen 650 mg Q6HP PRN PO 08/15/24 21:00 Acetaminophen/ Hydrocodone Bitart 1 tab Q4HP PRN PO 08/15/24 21:00 08/20/24 08:25 1 TAB Quetiapine Fumarate 50 mg HS PO 08/15/24 22:15 08/19/24 21:05 50 MG Diagnostic Test (Pha) 1 strip ACHS 08/16/24 07:00 08/20/24 05:45 1 STRIP Insulin Human Regular ACHS SC 08/16/24 07:00 08/20/24 05:48 2 UNITS Dextrose 50 ml UD PRN IV 08/15/24 22:15 Ondansetron HCl 4 mg Q8HPRN PRN IV 08/15/24 23:15 08/20/24 08:25 4 MG Heparin Sodium (Porcine) 5,000 units Q12HR SC 08/16/24 10:00 UNV Pantoprazole Sodium 40 mg DAILY IV 08/17/24 10:00 08/20/24 08:24 40 MG Mupirocin 1 applic BID EACHNOSTRI 08/19/24 22:00 08/24/24 21:59 08/20/24 08:25 1 APPLIC Examination: GENERAL:Normal, CVS:Normal laboratory and microbiology Laboratory Tests 08/18/24 05:34 Test 08/20/24 09:23 Range/Units Serum Glucose Pending Microbiology Date/Time Source Procedure Growth Status 08/17/24 23:57 Nose MRSA Screen - Final Complete Problem List/Assessment/Plan Problem List/Assessment/Plan ESRD HTN traumatic fall with clavicular fx seizure disorder HD Thursday if remains hospiralized renal diet supportive care monitor keppra dosing Plan discussed with: Patient Dietary Evaluation Review Comments: CCHO-60 Renal Diet Expected Outcomes/Goals: controlled DM, less uremic symptoms SHAHID GARSIA MD August 20, 2024 10:17
--- NOTE | 2024-08-20 14:13 | DVHPNRES ---
Progress Note Date Seen: August 20, 2024 Resident Creating Document: GULSHAN JIMENEZ RESIDENT Has the PT tested + for MRSA If YES, has PT been informed?: No Medical Necessity Reason Pt with a Central, PICC or Fol: No Subjective Review of Systems Patient seen and examined at the bedside. Patient reported feeling weak but no other complaints reported. Pending D/C to SNF. Objective vital signs Vital Sign Date Time Temp Pulse Resp B/P (MAP) Pulse Ox O2 Delivery O2 Flow Rate FiO2 08/20/24 08:33 98.5 88 18 116/79 (91) 96 98.5 08/20/24 07:32 Room Air* 0 21 Total Intake and Output 08/19/24 08/19/24 08/20/24 15:00 23:00 07:00 Intake Total 800 ml 300 ml Balance 800 ml 300 ml medications Current Medications Medications Dose Ordered Sig/Misty Route Start Time Stop Time Status Last Admin Dose Admin Apixaban 2.5 mg BID PO 08/15/24 22:00 08/20/24 08:27 2.5 MG Bumetanide 1 mg DAILY PO 08/16/24 10:00 08/20/24 08:26 1 MG Carvedilol 12.5 mg Q12HR PO 08/15/24 22:00 08/20/24 08:26 12.5 MG Atorvastatin Calcium 40 mg DAILY PO 08/16/24 10:00 08/20/24 08:26 40 MG Levetiracetam 1,000 mg BID PO 08/15/24 22:00 08/20/24 08:24 1,000 MG Patient Own Medication 1 drop BID LEFTEYE 08/16/24 10:00 Acetaminophen 650 mg Q6HP PRN PO 08/15/24 21:00 Acetaminophen/ Hydrocodone Bitart 1 tab Q4HP PRN PO 08/15/24 21:00 08/20/24 08:25 1 TAB Quetiapine Fumarate 50 mg HS PO 08/15/24 22:15 08/19/24 21:05 50 MG Diagnostic Test (Pha) 1 strip ACHS 08/16/24 07:00 08/20/24 11:30 1 STRIP Insulin Human Regular ACHS SC 08/16/24 07:00 08/20/24 12:01 3 UNITS Dextrose 50 ml UD PRN IV 08/15/24 22:15 Ondansetron HCl 4 mg Q8HPRN PRN IV 08/15/24 23:15 08/20/24 08:25 4 MG Heparin Sodium (Porcine) 5,000 units Q12HR SC 08/16/24 10:00 UNV Pantoprazole Sodium 40 mg DAILY IV 08/17/24 10:00 08/20/24 08:24 40 MG Mupirocin 1 applic BID EACHNOSTRI 08/19/24 22:00 08/24/24 21:59 08/20/24 08:25 1 APPLIC Examination Pt is lying on bed, generalized body tenderness due to fall. General Appearance: Alert, Oriented X3, Cooperative, Not in acute distress HEENT: Atraumatic, Mucous membranes moist/pink Respiratory: Clear to auscultation, Normal air movement, No added sounds Cardiovascular: Regular rate, Normal S1, Normal S2, No murmurs, tenderness in left chest; right chest hemodialysis catheter Abdominal: Active bowel sounds, Soft, no distention, no tenderness Extremities: No edema, Normal pulses, No tenderness/swelling Skin: No Significant rash, except past surgical scars Neuro: Normal speech, sensorimotor deficits none Psych/Mental Status: Mental status NL, Mood NL Nurse was there as front desk agent during examination laboratory and microbiology Laboratory Tests 08/20/24 09:23 08/18/24 05:34 Test 08/20/24 09:23 Range/Units Serum Glucose 215 H 74-106 mg/dL Microbiology Date/Time Source Procedure Growth Status 08/17/24 23:57 Nose MRSA Screen - Final Complete Labs and/or images reviewed: Labs reviewed by me, Image(s) reviewed by me Problem List/Assessment/Plan Problem List/Assessment/Plan # Mechanical Fall With LOC # Syncope likely orthostatic hypotension # Dizziness/lightheadedness. # ? orthostatic hypotension - Monitor telemetry for arrhythmias. - Orthostatic vitals. - Neurology consult if seizure suspected. - Continue fall precautions. - Head CT: normal, no acute changes - X-rays: no fractures. Except clavicle fracture - physical therapy on board # Chronic mid left clavicle fracture. - evident on x-ray - pain management # Acute on Chronic HFrEF (EF 40%) # medication non-adherence; # Hx of methamphetamine use may contribute to cardiomyopathy. # Paroxysmal Atrial Fibrillation (currently in sinus rhythm) with a secondary hypercoagulable state, on Eliquis - Monitor for rate/rhythm changes on telemetry. - Continue guideline-directed medical therapy (GDMT): carvedilol, bumetanide. - Monitor weight, I/Os, BNP, and renal function. - Consider echocardiogram if not recently done. -Substance use counseling. - Toxicology screen. Negative # ESRD on Hemodialysis - Nephrology consult for dialysis coordination. - correct electrolyte imbalance - monitor lab - hemodialysis yesterday # Type 2 Diabetes Mellitus (insulin-dependent) - Monitor blood glucose. - Sliding scale - HbA1c of 8.1% # History of Seizure - Continue Keppra 1000 mg BID. - seizure precautions # Schizophrenia # Medication adherence unclear. - Continue quetiapine 50 mg PO. - Psychiatry consult if behavioral concerns arise. # Medication Non-Adherence / Drug Use - counseled regarding this was benefits of medication adherence # Dyslipidemia - Continue atorvastatin PO. Protonix Eliquis Renal diet Case discussed with Dr. Kenny, patient and nurse. Pending discharge due to SNF placement, [employer] school social worker working on it. Plan discussed with: Patient, Other (RN) Dietary Evaluation Review Comments: CCHO-60 Renal Diet Expected Outcomes/Goals: controlled DM, less uremic symptoms Addendum Addendum Addendum I was physically present for the [place] portions of the service provided to patient by THE RESIDENT. I have reviewed the documentation, discussed the case with resident and agree with the resident's documentation except as noted. Also the patient's clinical case was discussed with the patient's nurse. This medical document was created using an electronic medical record system with computerized dictation system. Although this document has been carefully reviewed, there might still be some phonetic and typographical errors. These areas are purely typographical due to imperfections of the software programs, and do not reflect any compromise in the patient's medical care. Late signature. Date of Service: August 20, 2024 Billing Provider: LORI KENNY MD Common Visit Codes: [id number] INP/OBS CARE(HIGH) GULSHAN JIMENEZ RESIDENT August 20, 2024 14:13 LORI KENNY MD Aug 21, 2024 11:24
[2024-08-21 05:00] VITALS: BP 138/77; PULSE 85; RESP 19; TEMP 97.7; O2SAT 95
[2024-08-21] MEDS: MAALOX PLUS or MAALOX 30 ML PO PRN (05:02)
[2024-08-21 07:30] VITALS: PULSE 90; RESP 16; O2SAT 97
[2024-08-21 09:09] VITALS: BP 145/92; PULSE 77; RESP 18; TEMP 97.7; O2SAT 98
--- NOTE | 2024-08-21 09:45 | DVHPN2 ---
Progress Note Date Seen: Aug 21, 2024 Has the PT tested + for MRSA If YES, has PT been informed?: No Medical Necessity Reason Pt with a Central, PICC or Fol: No Objective vital signs Vital Sign Date Time Temp Pulse Resp B/P (MAP) Pulse Ox O2 Delivery O2 Flow Rate FiO2 08/21/24 09:09 97.7 77 18 145/92 (109) 98 97.7 08/21/24 07:30 Room Air* 0 21 Total Intake and Output 08/20/24 08/20/24 08/21/24 14:59 22:59 06:59 Intake Total 540 ml 410 ml Output Total 450 ml Balance 540 ml -40 ml medications Current Medications Medications Dose Ordered Sig/Misty Route Start Time Stop Time Status Last Admin Dose Admin Apixaban 2.5 mg BID PO 08/15/24 22:00 08/21/24 09:01 2.5 MG Bumetanide 1 mg DAILY PO 08/16/24 10:00 08/21/24 09:01 1 MG Carvedilol 12.5 mg Q12HR PO 08/15/24 22:00 08/21/24 09:02 12.5 MG Atorvastatin Calcium 40 mg DAILY PO 08/16/24 10:00 08/21/24 09:02 40 MG Levetiracetam 1,000 mg BID PO 08/15/24 22:00 08/21/24 09:02 1,000 MG Patient Own Medication 1 drop BID LEFTEYE 08/16/24 10:00 Acetaminophen 650 mg Q6HP PRN PO 08/15/24 21:00 Acetaminophen/ Hydrocodone Bitart 1 tab Q4HP PRN PO 08/15/24 21:00 08/20/24 20:01 1 TAB Quetiapine Fumarate 50 mg HS PO 08/15/24 22:15 08/20/24 21:30 50 MG Diagnostic Test (Pha) 1 strip ACHS 08/16/24 07:00 08/21/24 06:07 1 STRIP Insulin Human Regular ACHS SC 08/16/24 07:00 08/21/24 06:12 3 UNITS Dextrose 50 ml UD PRN IV 08/15/24 22:15 Ondansetron HCl 4 mg Q8HPRN PRN IV 08/15/24 23:15 08/20/24 20:00 4 MG Heparin Sodium (Porcine) 5,000 units Q12HR SC 08/16/24 10:00 UNV Pantoprazole Sodium 40 mg DAILY IV 08/17/24 10:00 08/21/24 09:01 40 MG Mupirocin 1 applic BID EACHNOSTRI 08/19/24 22:00 08/24/24 21:59 08/21/24 09:01 1 APPLIC Al Hydrox/Mg Hydrox/Simethicone 30 ml Q8HP PRN PO 08/21/24 04:45 08/21/24 05:02 30 ML laboratory and microbiology Laboratory Tests 08/20/24 09:23 08/18/24 05:34 Test 08/20/24 09:23 Range/Units Serum Glucose 215 H 74-106 mg/dL Microbiology Date/Time Source Procedure Growth Status 08/17/24 23:57 Nose MRSA Screen - Final Complete Problem List/Assessment/Plan Problem List/Assessment/Plan ESRD HTN traumatic fall with clavicular fx seizure disorder HD Thursday if remains hospitalized renal diet, potassium restriction supportive care monitor keppra dosing Plan discussed with: Patient Dietary Evaluation Review Comments: CCHO-60 Renal Diet Expected Outcomes/Goals: controlled DM, less uremic symptoms SHAHID GARSIA MD Aug 21, 2024 09:45
[2024-08-21 12:28] VITALS: BP 175/98; PULSE 82; RESP 19; TEMP 97.8; O2SAT 98
[2024-08-21] MEDS: ISOSORBIDE MONONITRATE 20 MG TAB PO ONE (12:48)
[2024-08-21] MEDS: hydrALAZINE HCL 25 MG TAB PO SCH (13:09)
[2024-08-21] MEDS: ACETAMINOPHEN 325 MG TAB PO PRN (13:16)
--- NOTE | 2024-08-21 18:48 | DVHPNRES ---
Progress Note Date Seen: Aug 21, 2024 Resident Creating Document: JOSEF NUNN RESIDENT Has the PT tested + for MRSA If YES, has PT been informed?: No Medical Necessity Reason Pt with a Central, PICC or Fol: No Subjective Review of Systems Patient seen and examined at bedside Generalized weakness No any other new complaints Waiting for SNF placement for PT. Objective vital signs Vital Sign Date Time Temp Pulse Resp B/P (MAP) Pulse Ox O2 Delivery O2 Flow Rate FiO2 08/21/24 13:09 175/95 08/21/24 12:28 97.8 82 19 98 97.8 08/21/24 07:30 Room Air* 0 21 Total Intake and Output 08/20/24 08/20/24 08/21/24 15:00 23:00 07:00 Intake Total 540 ml 410 ml Output Total 450 ml Balance 540 ml -40 ml medications Current Medications Medications Dose Ordered Sig/Misty Route Start Time Stop Time Status Last Admin Dose Admin Apixaban 2.5 mg BID PO 08/15/24 22:00 08/21/24 09:01 2.5 MG Bumetanide 1 mg DAILY PO 08/16/24 10:00 08/21/24 09:01 1 MG Carvedilol 12.5 mg Q12HR PO 08/15/24 22:00 08/21/24 09:02 12.5 MG Atorvastatin Calcium 40 mg DAILY PO 08/16/24 10:00 08/21/24 09:02 40 MG Levetiracetam 1,000 mg BID PO 08/15/24 22:00 08/21/24 09:02 1,000 MG Patient Own Medication 1 drop BID LEFTEYE 08/16/24 10:00 Acetaminophen 650 mg Q6HP PRN PO 08/15/24 21:00 08/21/24 13:16 650 MG Acetaminophen/ Hydrocodone Bitart 1 tab Q4HP PRN PO 08/15/24 21:00 08/21/24 11:15 1 TAB Quetiapine Fumarate 50 mg HS PO 08/15/24 22:15 08/20/24 21:30 50 MG Diagnostic Test (Pha) 1 strip ACHS 08/16/24 07:00 08/21/24 17:00 1 STRIP Insulin Human Regular ACHS SC 08/16/24 07:00 08/21/24 17:54 2 UNITS Dextrose 50 ml UD PRN IV 5/26/25 22:15 Ondansetron HCl 4 mg Q8HPRN PRN IV 08/15/24 23:15 08/21/24 13:16 4 MG Heparin Sodium (Porcine) 5,000 units Q12HR SC 08/16/24 10:00 UNV Pantoprazole Sodium 40 mg DAILY IV 08/17/24 10:00 08/21/24 09:01 40 MG Mupirocin 1 applic BID EACHNOSTRI 08/19/24 22:00 08/24/24 21:59 08/21/24 09:01 1 APPLIC Al Hydrox/Mg Hydrox/Simethicone 30 ml Q8HP PRN PO 08/21/24 04:45 08/21/24 05:02 30 ML Hydralazine HCl 25 mg Q8HR PO 08/21/24 14:00 08/21/24 13:09 25 MG Isosorbide Mononitrate 10 mg BID PO 08/21/24 22:00 Examination General Appearance: Cooperative. Well developed. Well nourished. NAD Head Exam: Normal inspection Neck Exam: Normal inspection. Non-tender. Normal alignment Pulmonary/Respiratory: Chest non-tender. Clear bilateral breath sounds Cardiovascular/Chest: Regular rate and rhythm. No murmurs. No JVD. Peripheral Pulses: 2+ Radial (R). 2+ Radial (L). 2+ Pedal (R). 2+ Pedal (L) Abdominal Exam: Normal bowel sounds. Soft. Nontender. No hepatosplenomegaly. No masses Ankle Exam: Negative ankle edema Lower extremities: Negative lower extremity edema Neuro/Mental Status: A&O x4. Coherent Thoughts/Psych: Normal thought pattern. Appropriate mood and affect. Good judgement and insight Appearance: In no acute distress Skin Exam: Normal inspection. Normal color. Warm. Dry Right chest dialysis catheter laboratory and microbiology Laboratory Tests 08/20/24 09:23 08/18/24 05:34 Test 08/20/24 09:23 Range/Units Serum Glucose 215 H 74-106 mg/dL Microbiology Date/Time Source Procedure Growth Status 08/17/24 23:57 Nose MRSA Screen - Final Complete Labs and/or images reviewed: Labs reviewed by me, Image(s) reviewed by me Problem List/Assessment/Plan Problem List/Assessment/Plan # Mechanical Fall With LOC # Syncope likely orthostatic hypotension # Dizziness/lightheadedness. # orthostatic hypotension - Monitor telemetry for arrhythmias. - Orthostatic vitals. - Continue fall precautions. - Head CT: normal, no acute changes - X-rays: no fractures. Except clavicle fracture - physical therapy on board, SNF for physical therapy # Chronic mid left clavicle fracture. - evident on x-ray - pain management # Acute on Chronic HFrEF (EF 40%) # medication non-adherence; # Hx of methamphetamine use may contribute to cardiomyopathy. # Paroxysmal Atrial Fibrillation (currently in sinus rhythm) with a secondary hypercoagulable state, on Eliquis - Monitor for rate/rhythm changes on telemetry. - Continue guideline-directed medical therapy (GDMT): carvedilol, bumetanide. Hydralazine, isosorbide mononitrate - Monitor weight, I/Os, BNP, and renal function. - Consider echocardiogram if not recently done. -Substance use counseling. - Toxicology screen. Negative # ESRD on Hemodialysis - Nephrology consult for dialysis coordination. - correct electrolyte imbalance - monitor lab - hemodialysis yesterday # Type 2 Diabetes Mellitus (insulin-dependent) - Monitor blood glucose. - Sliding scale - HbA1c of 8.1% # History of Seizure - Continue Keppra 1000 mg BID. - seizure precautions # Schizophrenia # Medication adherence unclear. - Continue quetiapine 50 mg PO. - Psychiatry consult if behavioral concerns arise. # Medication Non-Adherence / Drug Use - counseled regarding this was benefits of medication adherence # Dyslipidemia - Continue atorvastatin PO. Protonix Eliquis Renal diet Case discussed with Dr. Kenny, patient and nurse. Pending discharge due to SNF placement, social media marketing analyst working on it. Plan discussed with: Patient, Other (RN) My Orders My Orders Orders - JOSEF NUNN RESIDENT Procedure Category Date Status Time Hydralazine Hcl PHA 08/21/24 In Process Tablet (Apresoline 14:00 Isosorbide PHA 08/21/24 In Process Mononitrate Tablet 22:00 Dietary Evaluation Review Comments: CCHO-60 Renal Diet Expected Outcomes/Goals: controlled DM, less uremic symptoms Addendum Addendum Addendum I was physically present for the [place] portions of the service provided to patient by THE RESIDENT. I have reviewed the documentation, discussed the case with resident and agree with the resident's documentation except as noted. Also the patient's clinical case was discussed with the patient's nurse. This medical document was created using an electronic medical record system with computerized dictation system. Although this document has been carefully reviewed, there might still be some phonetic and typographical errors. These areas are purely typographical due to imperfections of the software programs, and do not reflect any compromise in the patient's medical care. Late signature. Date of Service: Aug 21, 2024 Billing Provider: LORI KENNY MD Common Visit Codes: [id number] INP/OBS CARE(HIGH) JOSEF NUNN RESIDENT Aug 21, 2024 18:48 LORI KENNY MD Aug 22, 2024 05:22
[2024-08-21 20:00] VITALS: PULSE 75; RESP 16
[2024-08-21] MEDS: ISOSORBIDE MONONITRATE 20 MG TAB PO SCH (21:17)
[2024-08-22] VITALS (9 sets, daily range): BP systolic 153–197; BP diastolic 73–117; PULSE 75–92; RESP 16–20; TEMP 96.6–98.7; O2SAT 94–98
[2024-08-22 06:20] LABS: Basophils # (auto) 0 10 ^3/uL (0-0.2); Basophils % (auto) 0.5 % (0.0-2.0); Eosinophils # (auto) 0.2 10 ^3/uL (0-0.8); Eosinophils % (auto) 3.5 % (0.0-7.0); Hematocrit 30.3 % (41.0-53.0); Hemoglobin 10.5 g/dL (13.5-17.5); Hemoglobin 10.6 g/dL (13.5-17.5); Lymphocytes % (auto) 30.1 % (10.0-50.0); Mean Corpuscular Hemoglobin 30.1 pg (28.0-32.0); Monocytes # (auto) 0.5 10 ^3/uL (0-1.3); Monocytes % (auto) 7.3 % (0.0-12.0); Neutrophils % (auto) 58.6 % (37.0-80.0); Nucleated Red Blood Cells % 0.1 %; Platelet Count (auto) 245 10^3/uL (140-450); Red Blood Cells 3.53 10^6/uL (4.5-5.90); Red Cell Distribution Width 13.9 % (11.8-14.3); White Blood Cell 6.8 10^3/uL (4.4-10.8)
[2024-08-22 06:33] LABS: Calcium 9.5 mg/dL (8.7-10.4); Chloride 103 mmol/L (98-107); Potassium 4.6 mmol/L (3.5-5.1); Sodium 138 mmol/L (136-145)
[2024-08-22 06:34] LABS: Anion Gap 10 (5-15); Carbon Dioxide 25 mmol/L (20-31)
[2024-08-22 06:36] LABS: % Iron Saturation 34.6 % (20-55)
[2024-08-22 06:39] LABS: BUN/Creatinine Ratio 9.6 (10.0-20.0)
[2024-08-22 06:45] LABS: Blood Urea Nitrogen 60 mg/dL (9-23); Glucose 242 mg/dL (74-106)
--- NOTE | 2024-08-22 11:39 | DVHPN2 ---
Progress Note Date Seen: Aug 22, 2024 Has the PT tested + for MRSA If YES, has PT been informed?: No Medical Necessity Reason Pt with a Central, PICC or Fol: No Subjective Patient reports: No new complaints Other Systems: Patient seen and examined by myself today in follow-up Patient examined hemodialysis, blood pressure stable Objective vital signs Vital Sign Date Time Temp Pulse Resp B/P (MAP) Pulse Ox O2 Delivery O2 Flow Rate FiO2 08/22/24 09:45 162/102 08/22/24 09:45 83 08/22/24 09:00 98.7 18 97 98.7 08/22/24 07:30 Room Air* 0 21 Total Intake and Output 08/21/24 08/21/24 08/22/24 15:00 23:00 07:00 Intake Total 780 ml 230 ml Output Total 1250 ml 500 ml Balance -470 ml -270 ml medications Current Medications Medications Dose Ordered Sig/Misty Route Start Time Stop Time Status Last Admin Dose Admin Apixaban 2.5 mg BID PO 08/15/24 22:00 08/22/24 09:49 2.5 MG Bumetanide 1 mg DAILY PO 08/16/24 10:00 08/21/24 09:01 1 MG Carvedilol 12.5 mg Q12HR PO 08/15/24 22:00 08/21/24 21:16 12.5 MG Atorvastatin Calcium 40 mg DAILY PO 08/16/24 10:00 08/22/24 11:27 40 MG Levetiracetam 1,000 mg BID PO 08/15/24 22:00 08/22/24 09:49 1,000 MG Patient Own Medication 1 drop BID LEFTEYE 08/16/24 10:00 Acetaminophen 650 mg Q6HP PRN PO 08/15/24 21:00 08/21/24 13:16 650 MG Acetaminophen/ Hydrocodone Bitart 1 tab Q4HP PRN PO 08/15/24 21:00 08/21/24 21:16 1 TAB Quetiapine Fumarate 50 mg HS PO 08/15/24 22:15 08/21/24 21:15 50 MG Diagnostic Test (Pha) 1 strip ACHS 08/16/24 07:00 08/22/24 11:28 1 STRIP Insulin Human Regular ACHS SC 08/16/24 07:00 08/22/24 11:28 3 UNITS Dextrose 50 ml UD PRN IV 08/15/24 22:15 Ondansetron HCl 4 mg Q8HPRN PRN IV 08/15/24 23:15 08/21/24 21:17 4 MG Heparin Sodium (Porcine) 5,000 units Q12HR SC 08/16/24 10:00 UNV Pantoprazole Sodium 40 mg DAILY IV 08/17/24 10:00 08/22/24 09:50 40 MG Mupirocin 1 applic BID EACHNOSTRI 08/19/24 22:00 08/24/24 21:59 08/22/24 09:50 1 APPLIC Al Hydrox/Mg Hydrox/Simethicone 30 ml Q8HP PRN PO 08/21/24 04:45 08/21/24 05:02 30 ML Hydralazine HCl 25 mg Q8HR PO 08/21/24 14:00 08/22/24 06:08 25 MG Isosorbide Mononitrate 10 mg BID PO 08/21/24 22:00 08/21/24 21:17 10 MG Examination: LUNGS:Normal, CVS:Normal, MSK:Normal laboratory and microbiology Laboratory Tests 08/22/24 05:21 Test 08/22/24 05:21 Range/Units Serum Glucose 242 H 74-106 mg/dL Microbiology Date/Time Source Procedure Growth Status 08/17/24 23:57 Nose MRSA Screen - Final Complete Problem List/Assessment/Plan Problem List/Assessment/Plan ESRD on hemodialysis Diabetes mellitus type 2 HTN traumatic fall with clavicular fx seizure disorder Anemia of chronic kidney disease Recommendations Continue with UF to 3 L as tolerated Epogen 13867 subQ 3 times weekly Resume home medications Renal diet Insulin sliding scale We will continue to follow Plan discussed with: Patient My Orders My Orders Orders - ARTEMIO DENNISON MD Procedure Category Date Status Time Hemodialysis Orders ORDERS 08/22/24 Transmitted 10:20 Dietary Evaluation Review Comments: CCHO-60 Renal Diet Expected Outcomes/Goals: controlled DM, less uremic symptoms ARTEMIO DENNISON MD Aug 22, 2024 11:39
[2024-08-22] MEDS: SODIUM CHL 0.9% 1000 ML BAG XX ONE (13:15)
--- NOTE | 2024-08-22 13:31 | DVHPNRES ---
Progress Note Date Seen: Aug 22, 2024 Resident Creating Document: BERTRAM LARKIN RESIDENT Has the PT tested + for MRSA If YES, has PT been informed?: No Medical Necessity Reason Pt with a Central, PICC or Fol: No Subjective Review of Systems This is a 53-year-old male with a history of ESRD on hemodialysis, HFrEF (EF 40%), paroxysmal atrial fibrillation (currently in sinus rhythm), schizophrenia, seizure disorder, diabetes mellitus type 2 (insulin dependent), hypertension, and known methamphetamine use, who presented to the ED after a mechanical fall at home on 08/15/2024. He reports that he was standing while preparing for dialysis when he suddenly fell, landing on his left knee and left shoulder. He believes he briefly lost consciousness, as he does not recall the duration he remained on the floor. No witnessed seizure activity was reported. He endorsed pain in his left knee, left shoulder, and anterior/posterior chest wall. Denies associated nausea, vomiting, diarrhea, fever, chills, or shortness of breath. He was noted to be a poor historian. PMH: ESRD on HD, paroxysmal AFib, CHF (EF 40%), DM2 (IDDM), HTN, seizure disorder, schizophrenia PSH: None reported Social: History of drug use (methamphetamine) Medications: Poor adherence reported 08/22/2024: patient is getting HD today, x ray showed chronic fracture of the clavicule, patient will benefit for home health PT, i spoke with her sister Kate, patient is not homeless, and she is going to pick him up tomorrow Objective vital signs Vital Sign Date Time Temp Pulse Resp B/P (MAP) Pulse Ox O2 Delivery O2 Flow Rate FiO2 08/22/24 13:01 98.7 85 17 187/104 (131) 96 98.7 08/22/24 07:30 Room Air* 0 21 Total Intake and Output 08/21/24 08/21/24 08/22/24 15:00 23:00 07:00 Intake Total 780 ml 230 ml Output Total 1250 ml 500 ml Balance -470 ml -270 ml medications Current Medications Medications Dose Ordered Sig/Misty Route Start Time Stop Time Status Last Admin Dose Admin Apixaban 2.5 mg BID PO 08/15/24 22:00 08/22/24 09:49 2.5 MG Bumetanide 1 mg DAILY PO 08/16/24 10:00 08/21/24 09:01 1 MG Carvedilol 12.5 mg Q12HR PO 08/15/24 22:00 08/21/24 21:16 12.5 MG Atorvastatin Calcium 40 mg DAILY PO 08/16/24 10:00 08/22/24 11:27 40 MG Levetiracetam 1,000 mg BID PO 08/15/24 22:00 08/22/24 09:49 1,000 MG Patient Own Medication 1 drop BID LEFTEYE 08/16/24 10:00 Acetaminophen 650 mg Q6HP PRN PO 08/15/24 21:00 08/21/24 13:16 650 MG Acetaminophen/ Hydrocodone Bitart 1 tab Q4HP PRN PO 08/15/24 21:00 08/21/24 21:16 1 TAB Quetiapine Fumarate 50 mg HS PO 08/15/24 22:15 08/21/24 21:15 50 MG Diagnostic Test (Pha) 1 strip ACHS 08/16/24 07:00 08/22/24 11:28 1 STRIP Insulin Human Regular ACHS SC 08/16/24 07:00 08/22/24 11:28 3 UNITS Dextrose 50 ml UD PRN IV 08/15/24 22:15 Ondansetron HCl 4 mg Q8HPRN PRN IV 08/15/24 23:15 08/22/24 13:17 4 MG Heparin Sodium (Porcine) 5,000 units Q12HR SC 08/16/24 10:00 UNV Pantoprazole Sodium 40 mg DAILY IV 08/17/24 10:00 08/22/24 09:50 40 MG Mupirocin 1 applic BID EACHNOSTRI 08/19/24 22:00 08/24/24 21:59 08/22/24 09:50 1 APPLIC Al Hydrox/Mg Hydrox/Simethicone 30 ml Q8HP PRN PO 08/21/24 04:45 08/21/24 05:02 30 ML Hydralazine HCl 25 mg Q8HR PO 08/21/24 14:00 08/22/24 06:08 25 MG Isosorbide Mononitrate 10 mg BID PO 08/21/24 22:00 08/21/24 21:17 10 MG Examination General Appearance: Alert, Oriented X3 HEENT: Atraumatic, PERRLA Respiratory: Clear to auscultation Cardiovascular: Other (tenderness in left chest ) Abdominal: Normal bowel sounds Extremities: No clubbing, No cyanosis Skin: No rashes, No breakdown Neuro: Normal gait, Normal speech Psych/Mental Status: Mental status NL, Mood NL laboratory and microbiology Laboratory Tests 08/22/24 05:21 Test 08/22/24 05:21 Range/Units Serum Glucose 242 H 74-106 mg/dL Microbiology Date/Time Source Procedure Growth Status 08/17/24 23:57 Nose MRSA Screen - Final Complete Problem List/Assessment/Plan Problem List/Assessment/Plan # Mechanical Fall With LOC # Syncope likely orthostatic hypotension # Dizziness/lightheadedness. # orthostatic hypotension - Monitor telemetry for arrhythmias. - Orthostatic vitals. - Continue fall precautions. - Head CT: normal, no acute changes - X-rays: no fractures. Except clavicle fracture - Patient is gonna benefit of home health PT, patient lives with her sister and she is going to pick him up tomorrow # Chronic mid left clavicle fracture. - evident on x-ray - pain management # Acute on Chronic HFrEF (EF 40%) # medication non-adherence; # Hx of methamphetamine use may contribute to cardiomyopathy. # Paroxysmal Atrial Fibrillation (currently in sinus rhythm) with a secondary hypercoagulable state, on Eliquis - Monitor for rate/rhythm changes on telemetry. - Continue guideline-directed medical therapy (GDMT): carvedilol, bumetanide. Hydralazine, isosorbide mononitrate - Monitor weight, I/Os, BNP, and renal function. - Consider echocardiogram if not recently done. -Substance use counseling. - Toxicology screen. Negative # ESRD on Hemodialysis - Nephrology consult for dialysis coordination. - correct electrolyte imbalance - monitor lab - hemodialysis yesterday # Type 2 Diabetes Mellitus (insulin-dependent) - Monitor blood glucose. - Sliding scale - HbA1c of 8.1% # History of Seizure - Continue Keppra 1000 mg BID. - seizure precautions # Schizophrenia # Medication adherence unclear. - Continue quetiapine 50 mg PO. - Psychiatry consult if behavioral concerns arise. # Medication Non-Adherence / Drug Use - counseled regarding this was benefits of medication adherence # Dyslipidemia - Continue atorvastatin PO. Protonix Eliquis Renal diet Case discussed with Dr. Anthony, patient and nurse. Plan discussed with: Patient, Other (rn) Dietary Evaluation Review Comments: CCHO-60 Renal Diet Expected Outcomes/Goals: controlled DM, less uremic symptoms Date of Service: Aug 22, 2024 Billing Provider: FABRICIO ANTHONY MD Common Visit Codes: [id number] INP/OBS CARE(HIGH) BERTRAM LARKIN RESIDENT Aug 22, 2024 13:31 FABRICIO ANTHONY MD Aug 23, 2024 09:19
--- NOTE | 2024-08-22 16:21 | DVHSR ---
APPROVED REPORT EXAM: Two-dimensional and M-mode echocardiogram with Doppler and color Doppler. Blood Pressure: 153/96 mmHg INDICATION Syncope RISK FACTORS Height: 6', Weight: 204 DIMENSIONS LVDd4.6 (3.8-5.7cm)LA (2D)3.8 (1.9-4.0cm)Aortic Root3.2 (2.0-3.7cm) LVDs3.5 (2.5-4.0cm)LA (MM) (1.9-4.0cm)Aortic Cusp Exc2.0 (1.5-2.0cm) EF (%) 47.0 (55-70%)Rt. Atrium3.1 (1.9-4.0cm)Asc. Aorta cm IVSd1.2 (0.7-1.1cm)RV (D)3.2 (1.8-2.4cm) PWd1.1 (0.7-1.1cm) Mitral Valve MitralMitral Stenosis E/A ratio0.02D MVAcm2 Aortic Valve Aortic ValveAortic Stenosis V10.93m/Jose David Mean GR.3mmHg V20.94m/Jose David Peak GR.4mmHg LVOT Diameter2.4 (1.8-2.4cm)Doppler AVA4.47cm2 Pulmonic Valve V21.02m/s Other Information Quality : Technically LimitedRhythm : Technically limited study due to body habitus. Conclusion lvef 50% moderate LVH low normal rv function left atrium enlarged borderline
[2024-08-22] MEDS: MORPHINE SULFATE 4 MG/ML SYR/VIAL ONE (19:49)
[2024-08-22] MEDS: MORPHINE SULFATE INJ 2 MG/ml SYRG IV PRN (19:54)
[2024-08-23] MEDS: MORPHINE SULFATE 4 MG/ML SYR/VIAL IV PRN (00:08)
[2024-08-23 01:00] VITALS: BP 123/80; PULSE 78; RESP 17; TEMP 97.8; O2SAT 95
[2024-08-23 05:00] VITALS: BP 134/79; PULSE 87; RESP 18; TEMP 97.8; O2SAT 96
[2024-08-23] MEDS ORDERED: LEVE100020 PO (06:28)
[2024-08-23] MEDS ORDERED: ATOR-507 PO (06:28)
[2024-08-23] MEDS ORDERED: APIX2.5T PO (06:28)
[2024-08-23] MEDS ORDERED: CARV-216 PO (06:28)
[2024-08-23] MEDS ORDERED: BUME1TAB3 PO (06:28)
[2024-08-23] MEDS ORDERED: HYDR25TA88 PO (06:28)
[2024-08-23] MEDS ORDERED: ISOS10TA2 PO (06:29)
[2024-08-23 09:00] VITALS: BP 159/93; PULSE 84; RESP 17; TEMP 98.6; O2SAT 94
--- NOTE | 2024-08-23 09:56 | DVHPN2 ---
Progress Note Date Seen: Aug 23, 2024 Has the PT tested + for MRSA If YES, has PT been informed?: No Medical Necessity Reason Pt with a Central, PICC or Fol: No Subjective Patient reports: No new complaints Other Systems: Patient seen and examined by myself today in follow-up Objective vital signs Vital Sign Date Time Temp Pulse Resp B/P (MAP) Pulse Ox O2 Delivery O2 Flow Rate FiO2 08/23/24 09:15 84 159/93 08/23/24 09:00 98.6 17 94 98.6 08/23/24 07:30 Room Air* 0 21 Total Intake and Output 08/22/24 08/22/24 08/23/24 15:00 23:00 07:00 Intake Total 800 ml 300 ml Output Total 750 ml 100 ml Balance -750 ml 700 ml 300 ml medications Current Medications Medications Dose Ordered Sig/Misty Route Start Time Stop Time Status Last Admin Dose Admin Apixaban 2.5 mg BID PO 08/15/24 22:00 08/23/24 09:14 2.5 MG Bumetanide 1 mg DAILY PO 08/16/24 10:00 08/23/24 09:15 1 MG Carvedilol 12.5 mg Q12HR PO 08/15/24 22:00 08/23/24 09:15 12.5 MG Atorvastatin Calcium 40 mg DAILY PO 08/16/24 10:00 08/23/24 09:15 40 MG Levetiracetam 1,000 mg BID PO 08/15/24 22:00 08/23/24 09:14 1,000 MG Patient Own Medication 1 drop BID LEFTEYE 08/16/24 10:00 Acetaminophen 650 mg Q6HP PRN PO 08/15/24 21:00 08/21/24 13:16 650 MG Acetaminophen/ Hydrocodone Bitart 1 tab Q4HP PRN PO 08/15/24 21:00 08/23/24 06:03 1 TAB Quetiapine Fumarate 50 mg HS PO 08/15/24 22:15 08/22/24 20:47 50 MG Diagnostic Test (Pha) 1 strip ACHS 08/16/24 07:00 08/23/24 06:03 1 STRIP Insulin Human Regular ACHS SC 08/16/24 07:00 08/23/24 06:04 4 UNITS Dextrose 50 ml UD PRN IV 08/15/24 22:15 Ondansetron HCl 4 mg Q8HPRN PRN IV 08/15/24 23:15 08/22/24 13:17 4 MG Heparin Sodium (Porcine) 5,000 units Q12HR SC 08/16/24 10:00 UNV Pantoprazole Sodium 40 mg DAILY IV 08/17/24 10:00 08/23/24 09:13 40 MG Mupirocin 1 applic BID EACHNOSTRI 08/19/24 22:00 08/24/24 21:59 08/23/24 09:15 1 APPLIC Al Hydrox/Mg Hydrox/Simethicone 30 ml Q8HP PRN PO 08/21/24 04:45 08/21/24 05:02 30 ML Hydralazine HCl 25 mg Q8HR PO 08/21/24 14:00 08/23/24 06:03 25 MG Isosorbide Mononitrate 10 mg BID PO 08/21/24 22:00 08/23/24 09:14 10 MG Morphine Sulfate 2 mg Q4HPRN PRN IV 08/22/24 23:45 08/23/24 00:08 2 MG Examination: LUNGS:Normal, CVS:Normal, MSK:Abnormal laboratory and microbiology Laboratory Tests 08/22/24 05:21 Test 08/22/24 05:21 Range/Units Serum Glucose 242 H 74-106 mg/dL Microbiology Date/Time Source Procedure Growth Status 08/17/24 23:57 Nose MRSA Screen - Final Complete Problem List/Assessment/Plan Problem List/Assessment/Plan ESRD on hemodialysis Diabetes mellitus type 2 HTN traumatic fall with clavicular fx seizure disorder Anemia of chronic kidney disease Recommendations Hemodialysis tomorrow Epogen [id number] subQ 3 times weekly Resume home medications Blood pressure control Renal diet Insulin sliding scale We will continue to follow Plan discussed with: Patient My Orders My Orders Orders - ARTEMIO DENNISON MD Procedure Category Date Status Time Hemodialysis Orders ORDERS 08/22/24 Transmitted 10:20 Dietary Evaluation Review Comments: CCHO-60 Renal Diet Expected Outcomes/Goals: controlled DM, less uremic symptoms ARTEMIO DENNISON MD Aug 23, 2024 09:56
--- NOTE | 2024-08-23 10:02 | DVHDSRES ---
Discharge Summary Date of Admission Resident Creating Document: BERTRAM LARKIN RESIDENT August 15, 2024 at 20:48 Date of Discharge: August 20, 2024 (Planned discharge was for August 19, 2024. Animal Humane Agent Supervisor to discharge the patient to SNF on August 20, 2024 (could be delayed also)) Admitting Diagnosis # Mechanical Fall With LOC Labs/Diagnostic Data: Laboratory Results Test 08/23/24 05:56 08/22/24 05:21 08/20/24 09:23 08/17/24 23:00 POC Glucose 215 mg/dl (70-106) White Blood Count 6.8 10^3/uL (4.4-10.8) Red Blood Count 3.53 10^6/uL (4.5-5.90) Hemoglobin 10.5 g/dL (13.5-17.5) Hematocrit 30.0 % (41.0-53.0) Mean Corpuscular Volume 86.0 fL (80.0-100.0) Mean Corpuscular Hemoglobin 30.1 pg (28.0-32.0) Mean Corpuscular Hemoglobin Concent 35.0 g/dL (32.0-36.0) Red Cell Distribution Width 13.9 % (11.8-14.3) Platelet Count 245 10^3/uL (140-450) Mean Platelet Volume 7.7 fL (6.9-10.8) Neutrophils (%) (Auto) 58.6 % (37.0-80.0) Lymphocytes (%) (Auto) 30.1 % (10.0-50.0) Monocytes (%) (Auto) 7.3 % (0.0-12.0) Eosinophils (%) (Auto) 3.5 % (0.0-7.0) Basophils (%) (Auto) 0.5 % (0.0-2.0) Neutrophils # (Auto) 4.0 10 ^3/uL (1.6-8.6) Lymphocytes # (Auto) 2.0 10 ^3/uL (0.4-5.4) Monocytes # (Auto) 0.5 10 ^3/uL (0-1.3) Eosinophils # (Auto) 0.2 10 ^3/uL (0-0.8) Basophils # (Auto) 0 10 ^3/uL (0-0.2) Nucleated Red Blood Cells 0.1 % Sodium Level 138 mmol/L (136-145) Potassium Level 4.6 mmol/L (3.5-5.1) Chloride Level 103 mmol/L (98-107) Carbon Dioxide Level 25 mmol/L (20-31) Anion Gap 10 (5-15) Blood Urea Nitrogen 60 mg/dL (9-23) Creatinine 6.27 mg/dL (0.700-1.30) Glomerular Filtration Rate Calc 10 mL/min (>90) BUN/Creatinine Ratio 9.6 (10.0-20.0) Serum Glucose 242 mg/dL (74-106) Calcium Level 9.5 mg/dL (8.7-10.4) Iron Level 90 ug/dL (65-175) Total Iron Binding Capacity 260 ug/dL (250-425) Percent Iron Saturation 34.6 % (20-55) Ferritin 515.2 ng/mL (22-322) Total Bilirubin 0.2 mg/dL (0.2-1.0) Aspartate Amino Transferase (AST) 9 U/L (13-40) Alanine Aminotransferase (ALT) 11 U/L (7-40) Alkaline Phosphatase 86 U/L (46-116) Total Protein 6.0 g/dL (5.7-8.2) Albumin 3.8 g/dL (3.2-4.8) Urine Opiates Screen Neg (NEGATIVE) Urine Fentanyl Screen Neg (NEGATIVE) Urine Barbiturates Screen Neg (NEGATIVE) Urine Phencyclidine Screen Neg (NEGATIVE) Urine Amphetamines Screen Neg (NEGATIVE) Urine Benzodiazepines Screen Neg (NEGATIVE) Urine Cocaine Screen Neg (NEGATIVE) Urine Cannabinoids Screen Neg (NEGATIVE) Test 08/17/24 10:38 08/15/24 20:48 08/15/24 18:05 Hemoglobin A1c 8.1 % A1C (<5.7) Magnesium Level 1.8 mg/dL (1.6-2.6) Urine Color Light-yellow (Yellow) Urine Clarity Clear (Clear) Urine pH 7.5 (5.0-9.0) Urine Specific [place] 1.012 (1.001-1.035) Urine Protein 3+ (Negative) Urine Ketones Negative (Negative) Urine Blood Negative /uL (Negative) Urine Nitrite Negative (Negative) Urine Bilirubin Negative (Negative) Urine Urobilinogen Normal mg/dL (Negative) Urine Leukocyte Esterase Negative /uL (Negative) Urine RBC 1 /hpf (0 - 3) Urine Microscopic WBC 4 /HPF (0-3) Urine Squamous Epithelial Cells Few /hpf (<5) Urine Bacteria None seen /hpf (None Seen) Urine Glucose 4+ mg/dL (Normal) B-Type Natriuretic Peptide 269.52 pg/mL (0-100) Other Laboratory Tests 08/22/24 05:21 Brief Hx & Hospital Course: 73-year-old male with ESRD on hemodialysis, HFrEF (EF 40%), paroxysmal atrial fibrillation (currently in sinus rhythm), schizophrenia, seizure disorder, DM2 (insulin-dependent), HTN, known methamphetamine use, presented after a mechanical fall on 08/22/2024. Patient reported lightheadedness followed by loss of consciousness while preparing for dialysis and fell onto his left side. He endorsed pain in the left shoulder, anterior/posterior chest wall, and left knee. Head CT was negative. Imaging revealed a chronic mid clavicle fracture. No acute fractures noted. Orthostatic vitals supported likely orthostatic hypotension as a contributor. Patient underwent routine HD during hospitalization. Home health PT was consulted and patient will benefit from PT services. He resides with his sister who is aware of the discharge plan and picked him up. Guideline-directed medical therapy continued (carvedilol, bumetanide, hydralazine, isosorbide mononitrate). Echo was not repeated; last EF was 40%. Drug screen was negative. patient continued quetiapine. Blood glucose levels were monitored with sliding scale coverage. Seizure precautions in place. Medication adherence was discussed in-depth with patient. Discharge Medications: Apixaban 2.5 mg BID Bumetanide 1 mg QD Carvedilol 12.5 mg BID Isosorbide Mononitrate 30 mg QD Atorvastatin 40 mg QD Quetiapine 50 mg PO QHS Protonix Disposition: Home with sister; home health PT arranged Follow-Up: PCP within 1 week Nephrology for dialysis Condition on Discharge: Stable Case discussed with Dr Anthony Full code Consults/Reason for consult nephrology due to ESRD Operations or Procedures Procedure: CT HEAD WITHOUT CONTRAST Study Date and Requested Time: 08/15/2024 05:21 PM History: fall Comparison: CT HEAD WITHOUT CONTRAST on DOS: 08/06/24, CT HEAD WITHOUT CONTRAST on DOS: 08/01/24, CT HEAD WITHOUT CONTRAST on DOS: 07/28/24 Dose: CTDI: 60.79 mGy DLP: 1076.24 mGycm Technique: Multiplanar images obtained through the brain without intravenous contrast. Findings: Mild diffuse brain atrophy. Mild chronic small vessel ischemic changes. Bilateral high convexity frontal lobe and bilateral thalamic chronic lacunar infarcts. No hemorrhages, masses, mass effect, midline shift, herniation or cytotoxic edema following a large vascular territory. No intra-axial or extra-axial fluid collections. No evidence of hydrocephalus. The basal cisterns are patent. The pituitary gland, sella and parasellar regions are unremarkable. The cerebellar tonsils are in normal position. The cerebellum is unremarkable. The orbits and globes are unremarkable. The paranasal sinuses and mastoids are clear. There are no worrisome calvarial lesions. Unchanged left [id number]-right occipital parietal scalp edema / small hematoma. Impression: No evidence of acute intracranial abnormality. Condition at Discharge: Stable Final Diagnosis/Problems List # Mechanical Fall With LOC # Syncope likely orthostatic # Dizziness/lightheadedness. # ? orthostatic hypotension # Chronic mid left clavicle fracture. # Acute on Chronic HFrEF (EF 40%) # medication non-adherence # Hx of methamphetamine use may contribute to cardiomyopathy. # Paroxysmal Atrial Fibrillation (currently in sinus rhythm) with a secondary hypercoagulable state, on Eliquis # ESRD on Hemodialysis # Type 2 Diabetes Mellitus (insulin-dependent) # History of Seizure # Schizophrenia # Medication Non adherence unclear. # Dyslipidemia Discharge Disposition: Home Discharge Instruct/Medications Diet: Consistent carbohydrate, Cardiac 2g Na,low cholest Activity: No Restrictions, As Tolerated Follow Up/Referral: [facility] clinc PCP Nephrology for HD Cardiology Psychiatry Medications: Per EMR resume home meds Discharge Statement: "Patient was advised to return to the ER or call 911 if any headaches, dizziness, shortness of breath, chest pain, abdominal pain, bleeding, fevers, or worsening of medical condition. Patient was counseled about treatment plan, medications, possible side effects, patientverbalized understanding. All questions were answered to the best of my ability. This discharge took greater then 30 minutes in planning, reviewing documentation, counseling the patient, and discussing with other team members." ASSESSMENT ASSESSMENT Assessment # Mechanical Fall With LOC # Syncope likely orthostatic # Dizziness/lightheadedness. # ? orthostatic hypotension # Chronic mid left clavicle fracture. # Acute on Chronic HFrEF (EF 40%) # medication non-adherence # Hx of methamphetamine use may contribute to cardiomyopathy. # Paroxysmal Atrial Fibrillation (currently in sinus rhythm) with a secondary hypercoagulable state, on Eliquis # ESRD on Hemodialysis # Type 2 Diabetes Mellitus (insulin-dependent) # History of Seizure # Schizophrenia # Medication Non adherence unclear. # Dyslipidemia Date of Service: Aug 23, 2024 Billing Provider: FABRICIO ANTHONY MD Common Visit Codes: 00218-BDG/OBS DISCH DAY >30min BERTRAM LARKIN RESIDENT Aug 23, 2024 10:02 FABRICIO ANTHONY MD Aug 24, 2024 11:17
[2024-08-24] MEDS ORDERED: SODIUM CHL 0.9% 1000 ML BAG XX ONE (07:00)
[2024-08-24] MEDS ORDERED: EPOETIN ALFA-EPBX 10,000 UNIT/1ML VIAL SC ONE (21:00)
== END 2024-08-23 09:50 | disposition home health service (06) | DRG 204 ==
LOC: EDBD → ER 16:44 → OVERFLOW 20:48 → TELE-CENTR 08-17 17:16
PROVIDERS: ADMIT Student in an Organized Health Care Education/Training Program; ATTEND Emergency Medicine
PROC: 5A1D70Z Performance of Urinary Filtration, Intermittent, Less than 6 Hours Per Day (ICD-10-PCS; principal; 2024-08-17)
PROC: 5A1D70Z Performance of Urinary Filtration, Intermittent, Less than 6 Hours Per Day (ICD-10-PCS; 2024-08-19)
PROC: 5A1D70Z Performance of Urinary Filtration, Intermittent, Less than 6 Hours Per Day (ICD-10-PCS; 2024-08-22)
DX: I95.1 Orthostatic hypotension (principal); I50.23 Acute on chronic systolic (congestive) heart failure; G93.41 Metabolic encephalopathy; N18.6 End stage renal disease; D68.59 Other primary thrombophilia; I42.7 Cardiomyopathy due to drug and external agent; S09.90XA Unspecified injury of head, initial encounter; D63.1 Anemia in chronic kidney disease; E11.22 Type 2 diabetes mellitus with diabetic chronic kidney disease; T43.655A Adverse effect of methamphetamines, initial encounter; E78.5 Hyperlipidemia, unspecified; I48.0 Paroxysmal atrial fibrillation; G40.909 Epilepsy, unspecified, not intractable, without status epilepticus; F15.90 Other stimulant use, unspecified, uncomplicated; F20.9 Schizophrenia, unspecified; S42.002A Fracture of unspecified part of left clavicle, initial encounter for closed fracture; W18.39XA Other fall on same level, initial encounter; I13.2 Hypertensive heart and chronic kidney disease with heart failure and with stage 5 chronic kidney disease, or end stage renal disease; Z99.2 Dependence on renal dialysis; Z88.0 Allergy status to penicillin; Z88.8 Allergy status to other drugs, medicaments and biological substances; Z79.891 Long term (current) use of opiate analgesic; Z79.899 Other long term (current) drug therapy; Z79.2 Long term (current) use of antibiotics; Z79.4 Long term (current) use of insulin; Z91.158 Patient's noncompliance with renal dialysis for other reason; Z88.1 Allergy status to other antibiotic agents; Z79.01 Long term (current) use of anticoagulants; Z91.148 Patient's other noncompliance with medication regimen for other reason; Y93.89 Activity, other specified; Z92.89 Personal history of other medical treatment; Y99.8 Other external cause status; E11.65 Type 2 diabetes mellitus with hyperglycemia
CPT/HCPCS: 36415; 70450; 71101; 72125; 73000; 73562; 80048; 80053; 80307; 81001; 82728; 82962; 83036; 83540; 83550; 83735; 83880; 85014; 85018; 85025; 87081; 90935; 93306; 93886; 96374; 96375; 97110; 97116; 97163; 97530; G0378; J1642; J1815; J2405; J2470

== ENCOUNTER 2024-08-29 15:47 | Emergency (ER) | payer MEDICAID ==
[~2024-08-29] VITALS: Ht 182.9 cm; Wt 90.0 kg
[~2024-08-29 15:47] MED LIST changes: -HYDR25TA87 PO
[2024-08-29 16:21] LABS: Basophils # (auto) 0.1 10 ^3/uL (0-0.2); Eosinophils # (auto) 0.2 10 ^3/uL (0-0.8); Eosinophils % (auto) 3.6 % (0.0-7.0); Hematocrit 31.3 % (41.0-53.0); Hemoglobin 10.6 g/dL (13.5-17.5); Lymphocytes # (auto) 1.6 10 ^3/uL (0.4-5.4); Lymphocytes % (auto) 28.6 % (10.0-50.0); Mean Corpuscular Hemoglobin 29.8 pg (28.0-32.0); Mean Corpuscular Hgb Conc. 33.8 g/dL (32.0-36.0); Mean Corpuscular Volume 88.1 fL (80.0-100.0); Monocytes # (auto) 0.5 10 ^3/uL (0-1.3); Monocytes % (auto) 8.1 % (0.0-12.0); Neutrophils # (auto) 3.3 10 ^3/uL (1.6-8.6); Neutrophils % (auto) 58.7 % (37.0-80.0); Platelet Count (auto) 285 10^3/uL (140-450); Red Blood Cells 3.55 10^6/uL (4.5-5.90); Red Cell Distribution Width 14.5 % (11.8-14.3); White Blood Cell 5.7 10^3/uL (4.4-10.8)
[2024-08-29 16:39] LABS: Alanine Aminotransferase 15 U/L (7-40); Albumin 4.1 g/dL (3.2-4.8); Anion Gap 11 (5-15); Carbon Dioxide 22 mmol/L (20-31); Sodium 144 mmol/L (136-145); Total Protein 6.3 g/dL (5.7-8.2)
--- NOTE | 2024-08-29 16:44 | DVH ---
EXAM: XR Chest, 1 View CLINICAL INDICATION: CP TECHNIQUE: Frontal view of the chest. COMPARISON: XY CHEST XRAY 1 VIEW on DOS: 08/01/24, XY CHEST XRAY 1 VIEW on DOS: 07/27/24, XY CHEST POR TABLE on DOS: 07/08/24, XY CHEST PORTABLE on DOS: 06/07/24 FINDINGS: LUNGS AND PLEURAL SPACES: Unremarkable. No consolidation. No pneumothorax. HEART: Unremarkable. No cardiomegaly. MEDIASTINUM: Unremarkable. Normal mediastinal contour. BONES/JOINTS: Unremarkable. No acute fracture. TUBES, LINES AND DEVICES: Right internal jugular central venous catheter tip in the superior vena c betty. OTHER FINDINGS: . . IMPRESSION: No acute cardiopulmonary process.
[2024-08-29 16:45] LABS: Alkaline Phosphatase 127 U/L (46-116); Aspartate Aminotransferase < 8 U/L (13-40); Bilirubin, Total 0.2 mg/dL (0.2-1.0); Blood Urea Nitrogen 47 mg/dL (9-23); Chloride 111 mmol/L (98-107); Glucose 235 mg/dL (74-106); Potassium 5.2 mmol/L (3.5-5.1)
--- NOTE | 2024-08-29 16:55 | ED.PDOC ---
History of Present Illness HPI Comments 53-year-old male presents to the ER with prior medical history of ESRD, AFib, CHF, diabetes, HLD, hypertension, schizophrenic, seizures and the chief complaint of chest pain. Patient reports on being recently discharged a couple weeks ago. Review of the chart shows patient discharged on 08/23. Patient sta marcie on having right-sided chest pain which is reproducible with palpation in radiates to the back. Denies chills, fever, N/V/D, SOB. No other associated symptoms, modifiers, recent injuries or sick contacts present at this time. Chief Complaint: Chest Pain Time Seen by MD: 16:00 Primary Care Provider: AMA Reviewed Notes: Nurses Notes, Medications, Allergies Allergies: Coded Allergies: Erythromycin (Verified Allergy, Unknown, 04/17/24) Penicillins (Verified Allergy, Unknown, 04/17/24) Home Meds Active Scripts Isosorbide Dinitrate (Isosorbide Dinitrate) 10 Mg Tab, 2 TAB PO TID@0600,1200,1800 for 5 Days, #30 TAB Prov[facility] 08/23/24 Hydralazine Hcl (Hydralazine Hcl) 25 Mg Tab, 25 MG PO TID for 90 Days, #270 TAB Prov:[facility] 08/23/24 Carvedilol (COREG) 12.5 Mg Tab, 12.5 MG PO Q12HR for 30 Days, #60 TAB Prov:[facility] 08/23/24 Apixaban Base (ELIQUIS) 2.5 Mg Tab, 2.5 MG PO BID for 30 Days, #60 TAB Prov:[facility] 08/23/24 Atorvastatin Calcium (Lipitor) 40 Mg Tab, 40 MG PO DAILY for 40 Days, #40 TAB Prov:[facility] 08/23/24 Bumetanide (Bumetanide) 1 Mg Tab, 1 TAB PO DAILY for 30 Days, #30 TAB Prov[facility] 08/23/24 Levetiracetam (Levetiracetam) 1,000 Mg Tab, 1 TAB PO BID for 30 Days, #60 TAB Prov[facility] 08/23/24 Hydrocodone-Acetaminophen (Hydrocodone Bitartrate/AC 5-325 mg) 1 Tab Tab, 1 TAB PO Q6HP PRN, #20 TAB Prov:MYRIAM CORNELIUS MD 08/06/24 Reported Medications Levetiracetam (Levetiracetam) 750 Mg Tab, 1 TAB PO GERARD for 30 Days, #60 TAKE 1 TABLET BY MOUTH ALONG WITH 1000 MG TWICE DAILY ON DIALYSIS DAYS. 08/16/24 Quetiapine Fumerate (QUETIAPINE FUMARATE) 50 Mg Tab, 1 TAB PO 06/07/24 Insulin Lispro (Insulin Lispro Thai Kwi) 100 Unit/Ml Inj 06/07/24 Olopatadine HCl (Olopatadine Hydrochloride) 0.1 % Melchor, 1 DROP LEFTEYE BID 06/07/24 Information Source: Patient Mode of Arrival: Ambulatory Severity: Moderate Timing: Hours Duration: Since onset, Hours Prehospital treatment: None Past Medical History PAST MEDICAL HISTORY: AFIB, CHF, DM, ESRD, High Lipids, HTN, Schizophrenia, Seizures Surgical History: Denies all surgeries Family History Family History: Reviewed,noncontributory to illness, Unknown Social History Smoker: Non-Smoker Alcohol: Denies ETOH Use Drugs: Denies Drug Use Lives In: Home Constitutional: denies: chills, diaphoresis, fatigue, fever, malaise, sweats, weakness, others EENTM: denies: blurred vision, double vision, ear bleeding, ear discharge, ear drainage, ear pain, ear ringing, eye pain, eye redness, hearing loss, mouth pain, mouth swelling, nasal discharge, nose bleeding, nose congestion, nose pain, photophobia, tearing, throat pain, throat swelling, voice changes, others Respiratory: denies: cough, hemoptysis, orthopnea, SOB at rest, shortness of breath, SOB with excertion, stridor, wheezing, others Cardiovascular: reports: chest pain; denies: dizzy spells, diaphoresis, Dyspnea on exertion, edema, irregular heart beat, left arm pain, lightheadedness, p alpitations, PND, syncope, others Gastrointestinal: denies: abdomen distended, abdominal pain, blood streaked bowels, constipated, diarrhea, dysphagia, difficulty swallowing, hematemesis, melena, nausea, poor appetite, poor fluid intake, rectal bleeding, rectal pain, vomiting, others Genitourinary: denies: burning, dysuria, flank pain, frequency, hematuria, incontinence, penile discharge, penile sore, pain, testicle pain, testicle swelling, urgency, others Neurological: denies: dizziness, fainting, headache, left sided numbness, left sided weakness, numbness, paresthesia, pre-existing deficit, right sided numbness, right sided weakness, seizure, speech problems, tingling, tremors, weakness, others Musculoskeletal: reports: back pain; denies: gout, joint pain, joint swelling, muscle pain, muscle stiffness, neck pain, others Integumetry: denies: bruises, change in color, change in hair/nails, dryness, laceration, lesions, lumps, rash, wounds, others Allergic/Immunocompromised: denies: Difficulty Healing, Frequent Infections, Hives, Itching, others Hematologic/Lymphatic: denies: anemia, blood clots, easy bleeding, easy bruising, swollen glands, others Endocrine: denies: excessive hunger, excessive sweating, excessive thirst, excessive urination, flushing, intolerance to cold, intolerance to heat, unexplained weight gain, unexplained weight loss, others Psychiatric: denies: anxiety, bipolar disorder, depression, hopeless, panic disorder, schizophrenia, sleepless, suicidal, others All Other Systems: Reviewed and Negative Physical Exam General Appearance: No Apparent Distress, Normal HEENT: Normal ENT Inspection, Pharynx Normal, TMs Normal Neck: Full Range of Motion, Non-Tender, Normal, Normal Inspection Respiratory: Chest Non-Tender, Lungs Clear, No Accessory Muscle Use, No Respiratory Distress, Normal Breath Sounds Cardiovascular: No Edema, No JVD, No Murmur, No Gallop, Normal Peripheral Pulses, Regular Rate/Rhythm Breast Exam: Deferred Gastrointestinal: No Organomegaly, Non Tender, No Pulsatile Mass, Normal Bowel Sounds, Soft Genitalia: Deferred Pelvic: Deferred Rectal: Deferred Extremities: No calf tenderness, Normal capillary refill, Normal inspection, Normal range of motion, Non-tender, No pedal edema Musculoskeletal : Apperance: Normal Neurologic: Alert, resource director II-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 Was a procedure done?: No Differential Dx Considerations may include: OR, hyperkalemia, ESRD, sepsis, DKA, X-Ray, Labs, Meds, VS Vital Signs Date Time Temp Pulse Resp B/P (MAP) Pulse Ox O2 Delivery O2 Flow Rate FiO2 08/29/24 16:56 110 08/29/24 16:53 98.7 89 20 135/89 (104) 99 98.7 08/29/24 16:53 Room Air* 0 21 08/29/24 15:56 115 08/29/24 15:47 98.4 113 16 114/75 (88) 99 98.4 Lab Test 08/29/24 16:47 08/29/24 16:04 08/29/24 16:02 Range/Units Troponin I High Sensitivity 10 11 </=54 ng/L White Blood Count 5.7 4.4-10.8 10^3/uL Red Blood Count 3.55 L 4.5-5.90 10^6/uL Hemoglobin 10.6 L 13.5-17.5 g/dL Hematocrit 31.3 L 41.0-53.0 % Mean Corpuscular Volume 88.1 80.0-100.0 fL Mean Corpuscular Hemoglobin 29.8 28.0-32.0 pg Mean Corpuscular Hemoglobin Concent 33.8 32.0-36.0 g/dL Red Cell Distribution Width 14.5 H 11.8-14.3 % Platelet Count 285 140-450 10^3/uL Mean Platelet Volume 7.1 6.9-10.8 fL Neutrophils (%) (Auto) 58.7 37.0-80.0 % Lymphocytes (%) (Auto) 28.6 10.0-50.0 % Monocytes (%) (Auto) 8.1 0.0-12.0 % Eosinophils (%) (Auto) 3.6 0.0-7.0 % Basophils (%) (Auto) 1.0 0.0-2.0 % Neutrophils # (Auto) 3.3 1.6-8.6 10 ^3/uL Lymphocytes # (Auto) 1.6 0.4-5.4 10 ^3/uL Monocytes # (Auto) 0.5 0-1.3 10 ^3/uL Eosinophils # (Auto) 0.2 0-0.8 10 ^3/uL Basophils # (Auto) 0.1 0-0.2 10 ^3/uL Nucleated Red Blood Cells 0.0 % Sodium Level 144 136-145 mmol/L Potassium Level 5.2 H 3.5-5.1 mmol/L Chloride Level 111 H 98-107 mmol/L Carbon Dioxide Level 22 20-31 mmol/L Anion Gap 11 5-15 Blood Urea Nitrogen 47 H 9-23 mg/dL Creatinine 5.86 H 0.700-1.30 mg/dL Glomerular Filtration Rate Calc 11 >90 mL/min BUN/Creatinine Ratio 8.0 L 10.0-20.0 Serum Glucose 235 H 74-106 mg/dL Calcium Level 10.0 8.7-10.4 mg/dL Total Bilirubin 0.2 0.2-1.0 mg/dL Aspartate Amino Transferase (AST) < 8 L 13-40 U/L Alanine Aminotransferase (ALT) 15 7-40 U/L Alkaline Phosphatase 127 H 46-116 U/L Total Protein 6.3 5.7-8.2 g/dL Albumin 4.1 3.2-4.8 g/dL Lipase 28 12-53 U/L Urine Color Colorless Yellow Urine Clarity Clear Clear Urine pH 7.5 5.0-9.0 Urine Specific [place] 1.012 1.001-1.035 Urine Protein 2+ H Negative Urine Ketones Negative Negative Urine Blood Trace H Negative /uL Urine Nitrite Negative Negative Urine Bilirubin Negative Negative Urine Urobilinogen Normal Negative mg/dL Urine Leukocyte Esterase Negative Negative /uL Urine RBC 2 0 - 3 /hpf Urine Microscopic WBC 6 H 0-3 /HPF Urine Squamous Epithelial Cells Few <5 /hpf Urine Bacteria None seen None Seen /hpf Urine Glucose 3+ H Normal mg/dL X-Ray, Labs, Meds, VS Comment Patient to be admitted for hyperkalemia , chest pain, end-stage renal disease Patient will be started on hyperkalemia protocol Recommend cardiology consult Patient may need dialysis tomorrow Time of 1ST Reevaluation: 16:30 Reevaluation 1ST: Unchanged Patient Education/Counseling: Diagnosis, Treatment, Prognosis Family Education/Counseling: No Family Present Departure 1 Departure Time of Disposition: 18:22 Impression: Primary Impression: Musculoskeletal chest pain Additional Impressions: End-stage renal disease on hemodialysis Diabetes mellitus with hyperglycemia Qualified Codes: E11.65 - Type 2 diabetes mellitus with hyperglycemia; Z79.4 - intermediate (current) use of insulin Generalized weakness Hyperkalemia Disposition: ADMITTED INPATIENT Condition: Guarded Critical Care Note Critical Care Time?: No Stability Stability form required: No Heart Score Heart Score: Heart Score Response (Comments) Value History Moderate Suspicious 1 EKG Normal 0 Age 45-64 1 Risk Factors >3 or Hx ASHD 2 Troponin Normal limit 0 Total 4 I personally scribed for GUANACO HIGGINS ([email or web address]) on 08/29/24 at 16:55. Electronically submitted by Chas Mata ([email or web address]). GUANACO HIGGINS Aug 29, 2024 16:55
[2024-08-29 16:56] LABS: Lipase 28 U/L (12-53)
--- NOTE | 2024-08-29 16:58 | ECG ---
[facility] [place] Test Date: 2024-08-29 Test Time: 16:56:26 Pat Name: ASHELY ZELAYA Department: ED Room: Gender: M Lap Grinder: GV : 1970 Requested By: QASIM RAUSCH Order Number: [id number] Reading MD: Andrew Fish Measurements Intervals [place] Rate: 110 P: 43 TN: 141 QRS: 49 QRSD: 86 T: 58 QT: 344 QTc: 466 Interpretive Statements Sinus tachycardia Electronically Signed On 08-31-2024 21:03:00 PDT by Andrew Fish Please click the below link to view image of tracing.
[2024-08-29 17:12] LABS: Urine Bacteria None Seen /hpf (None Seen)
[2024-08-29 17:31] LABS: Urine Blood TRACE /uL (Negative); Urine Clarity Clear (Clear); Urine Color Colorless (Yellow); Urine Protein, UAD 2+ (Negative); Urine Specific Gravity 1.012 (1.001-1.035); Urine Squamous Epithelial Cell FEW /hpf (<5); Urine Urobilinogen Normal (Negative); Urine WBC 6 /HPF (0-3); Urine pH 7.5 (5.0-9.0)
[2024-08-29 18:30] VITALS: BP 144/95; PULSE 107; RESP 18; TEMP 98; O2SAT 98
[2024-08-29] MEDS: DEXTROSE (50%) 50ML SYRG IV ONE (18:35)
[2024-08-29] MEDS: InsuLIN REG 1unit/0.01ml Soln (100units/ml) IV ONE (18:36)
[2024-08-29] MEDS: ALBUTEROL SULF 2.5 MG/0.5ML(0.5%) NEB SOLN NEB ONE (18:36)
[2024-08-29] MEDS: SODIUM BICARB 8.4% 50Meq/50ml SYR INJ IV ONE (18:36)
--- NOTE | 2024-08-30 10:59 | ECG ---
[facility] Test Date: 2024-08-29 Test Time: 15:56:13 Pat Name: ASHELY ZELAYA Department: ER Room: Gender: M Cra Officer: PEDRO : 1970 Requested By: QASIM RAUSCH Order Number: [id number] Reading MD: Andrew Fish Measurements Intervals [place] Rate: 115 P: 56 MA: 137 QRS: 57 QRSD: 90 T: 86 QT: 336 QTc: 465 Interpretive Statements Sinus tachycardia Nonspecific T abnormalities, lateral leads Electronically Signed On 08-31-2024 21:00:29 PDT by Andrew Fish Please click the below link to view image of tracing.
== END 2024-08-29 18:34 | disposition home or self-care (01) ==
LOC: EDBD → ER 15:47
DX: R07.89 Other chest pain (principal); I13.2 Hypertensive heart and chronic kidney disease with heart failure and with stage 5 chronic kidney disease, or end stage renal disease; N18.6 End stage renal disease; E11.22 Type 2 diabetes mellitus with diabetic chronic kidney disease; I50.9 Heart failure, unspecified; E78.5 Hyperlipidemia, unspecified; E87.5 Hyperkalemia; F20.9 Schizophrenia, unspecified; I48.91 Unspecified atrial fibrillation; Z79.899 Other long term (current) drug therapy; Z99.2 Dependence on renal dialysis; Z88.0 Allergy status to penicillin; Z88.1 Allergy status to other antibiotic agents
CPT/HCPCS: 36415; 71045; 80053; 81001; 83690; 84484; 85025; 93005

== ENCOUNTER 2024-09-14 07:20 | Emergency (ER) | payer MEDICAID ==
[~2024-09-14] VITALS: Ht 177.8 cm; Wt 75.0 kg
[~2024-09-14 07:20] MED LIST changes: +ACYC1TAB2 PO
--- NOTE | 2024-09-14 08:03 | ED.PDOC ---
History of Present Illness HPI Comments 53-year-old male brought by paramedics because of pain in the back. He has been having this pain in the back for the past few weeks. He was admitted here discharged yesterday for the same symptom. He has a history of shingles. He was given a prescription of acyclovir when he was discharged. He never picked up his prescription to take the medication. Patient does have a history of hypertension dialysis seizure. No new symptoms after the discharged. Denies any other symptoms. Chief Complaint: Body Pain Time Seen by MD: 07:57 Primary Care Provider: KELLIE Reviewed Notes: Nurses Notes, Medications, Allergies Allergies: Coded Allergies: Erythromycin (Verified Allergy, Unknown, 04/17/24) Penicillins (Verified Allergy, Unknown, 04/17/24) Home Meds Active Scripts Acyclovir (Acyclovir) 400 Mg Tab, 800 MG PO TID for 14 Days, #84 TAB Prov:HILDA MURPHY MD 09/05/24 Isosorbide Dinitrate (Isosorbide Dinitrate) 10 Mg Tab, 2 TAB PO TID@0600,1200,1800 for 5 Days, #30 TAB Prov:BERTRAM LARKIN 08/23/24 Hydralazine Hcl (Hydralazine Hcl) 25 Mg Tab, 25 MG PO TID for 90 Days, #270 TAB Prov:BERTRAM LARKIN [facility] 08/23/24 Carvedilol (COREG) 12.5 Mg Tab, 12.5 MG PO Q12HR for 30 Days, #60 TAB Prov:EBRTRAM LARKIN [facility] 08/23/24 Apixaban Base (ELIQUIS) 2.5 Mg Tab, 2.5 MG PO BID for 30 Days, #60 TAB Prov:BERTARM LARKIN [facility] 08/23/24 Atorvastatin Calcium (Lipitor) 40 Mg Tab, 40 MG PO DAILY for 40 Days, #40 TAB Prov:BERTRAM LARKIN [facility] 08/23/24 Bumetanide (Bumetanide) 1 Mg Tab, 1 TAB PO DAILY for 30 Days, #30 TAB Prov:BERTRAM LARKIN [facility] 08/23/24 Levetiracetam (Levetiracetam) 1,000 Mg Tab, 1 TAB PO BID for 30 Days, #60 TAB Prov:BERTRAM LARKIN 08/23/24 Hydrocodone-Acetaminophen (Hydrocodone Bitartrate/AC 5-325 mg) 1 Tab Tab, 1 TAB PO Q6HP PRN, #20 TAB Prov:MYRIAM CORNELIUS MD 08/06/24 Reported Medications Levetiracetam (Levetiracetam) 750 Mg Tab, 1 TAB PO GERARD for 30 Days, #60 TAKE 1 TABLET BY MOUTH ALONG WITH 1000 MG TWICE DAILY ON DIALYSIS DAYS. 08/16/24 Quetiapine Fumerate (QUETIAPINE FUMARATE) 50 Mg Tab, 1 TAB PO 06/07/24 Insulin Lispro (Insulin Lispro Thai Kwi) 100 Unit/Ml Inj 06/07/24 Olopatadine HCl (Olopatadine Hydrochloride) 0.1 % Melchor, 1 DROP LEFTEYE BID 06/07/24 Information Source: Patient, Emergency Med Personnel Mode of Arrival: EMS Severity: Moderate Timing: Weeks Duration: Since onset Past Medical History PAST MEDICAL HISTORY: AFIB, CHF, DM, ESRD, High Lipids, HTN, Schizophrenia, Seizures Surgical History: Denies all surgeries Family History Family History: Reviewed,noncontributory to illness, Unknown Social History Smoker: Non-Smoker Alcohol: Denies ETOH Use Drugs: Denies Drug Use Lives In: Home Constitutional: denies: chills, diaphoresis, fatigue, fever, malaise, sweats, weakness, others EENTM: denies: blurred vision, double vision, ear bleeding, ear discharge, ear drainage, ear pain, ear ringing, eye pain, eye redness, hearing loss, mouth pain, mouth swelling, nasal discharge, nose bleeding, nose congestion, nose pain, photophobia, tearing, throat pain, throat swelling, voice changes, others Respiratory: denies: cough, hemoptysis, orthopnea, SOB at rest, shortness of breath, SOB with excertion, stridor, wheezing, others Cardiovascular: denies: chest pain, dizzy spells, diaphoresis, Dyspnea on exertion, edema, irregular heart beat, left arm pain, lightheadedness, palpitations, PND, syncope, others Gastrointestinal: denies: abdomen distended, abdominal pain, blood streaked bowels, constipated, diarrhea, dysphagia, difficulty swallowing, hematemesis, melena, nausea, poor appetite, poor fluid intake, rectal bleeding, rectal pain, vomiting, others Genitourinary: denies: burning, dysuria, flank pain, frequency, hematuria, incontinence, penile discharge, penile sore, pain, testicle pain, testicle swelling, urgency, others Neurological: denies: dizziness, fainting, headache, left sided numbness, left sided weakness, numbness, paresthesia, pre-existing deficit, right sided numbness, right sided weakness, seizure, speech problems, tingling, tremors, weakness, others Musculoskeletal: reports: back pain; denies: gout, joint pain, joint swelling, muscle pain, muscle stiffness, neck pain, others Integumetry: reports: rash (back); denies: bruises, change in color, change in hair/nails, dryness, laceration, lesions, lumps, wounds, others Allergic/Immunocompromised: denies: Difficulty Healing, Frequent Infections, Hives, Itching, others Hematologic/Lymphatic: denies: anemia, blood clots, easy bleeding, easy bruising, swollen glands, others Endocrine: denies: excessive hunger, excessive sweating, excessive thirst, excessive urination, flushing, intolerance to cold, intolerance to heat, unexplained weight gain, unexplained weight loss, others Psychiatric: denies: anxiety, bipolar disorder, depression, hopeless, panic disorder, schizophrenia, sleepless, suicidal, others Physical Exam General Appearance: Moderate Distress HEENT: Normal ENT Inspection, Pharynx Normal, TMs Normal Neck: Full Range of Motion, Non-Tender, Normal, Normal Inspection Respiratory: Chest Non-Tender, Lungs Clear, No Accessory Muscle Use, No Respiratory Distress, Normal Breath Sounds Cardiovascular: No Edema, No JVD, No Murmur, No Gallop, Normal Peripheral Pulses, Regular Rate/Rhythm Breast Exam: Deferred Gastrointestinal: No Organomegaly, Non Tender, No Pulsatile Mass, Normal Bowel Sounds, Soft Genitalia: Deferred Pelvic: Deferred Rectal: Deferred Extremities: No calf tenderness, Normal capillary refill, Normal inspection, Normal range of motion, Non-tender, No pedal edema Musculoskeletal : Apperance: Normal Neurologic: Alert, No Motor Deficits, No Sensory Deficits Cerebellar Function: NOT DONE Reflexes: NOT DONE Skin: Normal Color Peripheral Pulses: 3+ Radial (R), 3+ Radial (L) Lymphatic: No Adenopathy Was a procedure done? Was a procedure done?: No Differential Dx Considerations may include: Anemia Electrolyte imbalance X-Ray, Labs, Meds, VS Vital Signs Date Time Temp Pulse Resp B/P (MAP) Pulse Ox O2 Delivery O2 Flow Rate FiO2 09/14/24 07:30 98.5 110 18 184/90 (121) 95 98.5 Patient alert. Complaining of rash in the back. Herpes zoster. Vitals stable. Answering questions. Reviewed his previous visit. He has a prescription for acyclovir. Spoke to the family. He is to have dialysis later today. Family member is going to drive him to dialysis. No shortness a breath. No chest pain. No leg swelling. Blood pressure elevated. Was given clonidine. Explained to the patient. Was told to follow up with his primary care physician. Was told to come back if there is any problem. Time of 1ST Reevaluation: 08:01 Reevaluation 1ST: Improved Patient Education/Counseling: Diagnosis, Treatment, Prognosis, Need For Follow Up Family Education/Counseling: No Family Present SEPSIS Sepsis Screen Date sepsis recognized/suspect: Sep 14, 2024 Time Sepsis recognized/suspect: 725 Recent Procedure: No On Antibiotic Therapy: No Respiratory Rate >20: No Heart Rate >90: Yes Temp<36 C (96.8 F) or >38.3 C: No SBP <90 or MAP <65 mmHG: No New Acute Mental Status Change: No Is the patient on CPAP, BIPAP,: No Vital Signs Date Time Temp Pulse Resp B/P (MAP) Pulse Ox O2 Delivery O2 Flow Rate FiO2 09/14/24 07:30 98.5 110 18 184/90 (121) 95 98.5 Departure 1 Departure Time of Disposition: 08:03 Impression: Primary Impression: Hypertensive urgency Additional Impression: End stage renal disease on dialysis Disposition: 01 HOME / SELF CARE / HOMELESS Condition: Good Discharged With: Self Critical Care Note Critical Care Time?: No Stability Stability form required: No Heart Score Heart Score: Heart Score Response (Comments) Value History N/A 0 EKG N/A 0 Age N/A 0 Risk Factors N/A 0 Troponin N/A 0 Total 0 CHIKIS OLIVAREZ MD Sep 14, 2024 08:03
[2024-09-14] MEDS: cloNIDine HCL 0.1 MG TAB PO ONE (08:22)
[2024-09-14 09:27] VITALS: BP 148/84; PULSE 93; RESP 16; TEMP 98.1; O2SAT 98
== END 2024-09-14 09:42 | disposition home or self-care (01) ==
LOC: EDUNIT# 07:20 → ER 07:20 → EDBD 07:20 → ER 09:42
DX: I16.0 Hypertensive urgency (principal); I13.2 Hypertensive heart and chronic kidney disease with heart failure and with stage 5 chronic kidney disease, or end stage renal disease; E11.22 Type 2 diabetes mellitus with diabetic chronic kidney disease; I50.9 Heart failure, unspecified; N18.6 End stage renal disease; I48.91 Unspecified atrial fibrillation; F20.9 Schizophrenia, unspecified; Z79.899 Other long term (current) drug therapy; Z86.19 Personal history of other infectious and parasitic diseases; Z99.2 Dependence on renal dialysis; Z88.0 Allergy status to penicillin; Z88.1 Allergy status to other antibiotic agents

== ENCOUNTER 2024-09-16 03:47 | Inpatient (IN) | payer MEDICAID ==
[~2024-09-16] VITALS: Ht 185.4 cm; Wt 88.9 kg
--- NOTE | 2024-09-16 04:10 | ED.PDOC ---
History of Present Illness HPI Comments 53-year-old male came to ER via EMS for headaches. Per EMS, patient resides at the [facility], has a history of hypertension, CVA, seizures, end-stage renal disease dialysis every Thursday and Thursday. Patient is legally blind in the left eye. About an hour prior to arrival, patient states he had a seizure episode while on his way to the restroom. Fell backwards and hit the right side of his head. Patient states that since this seizure, he has lost vision in his right eye. Blood pressure on scene 203/111 mm Hg. He denies any other injuries or focal weakness. Chief Complaint: Headache Time Seen by MD: 04:10 Primary Care Provider: KELLIE Reviewed Notes: Straightener And Aligner Notes Allergies: Coded Allergies: Erythromycin (Verified Allergy, Unknown, 04/17/24) Penicillins (Verified Allergy, Unknown, 04/17/24) Home Meds Active Scripts Acyclovir (Acyclovir) 400 Mg Tab, 800 MG PO TID for 14 Days, #84 TAB Prov:HILDA MURPHY MD 09/05/24 Isosorbide Dinitrate (Isosorbide Dinitrate) 10 Mg Tab, 2 TAB PO TID@0600,120 0,1800 for 5 Days, #30 TAB Prov:BERTRAM LARKIN 08/23/24 Hydralazine Hcl (Hydralazine Hcl) 25 Mg Tab, 25 MG PO TID for 90 Days, #270 TAB Prov:BERTRAM LARKIN 08/23/24 Carvedilol (COREG) 12.5 Mg Tab, 12.5 MG PO Q12HR for 30 Days, #60 TAB Prov:BERTRAM LARKIN 08/23/24 Apixaban Base (ELIQUIS) 2.5 Mg Tab, 2.5 MG PO BID for 30 Days, #60 TAB Prov:BERTRAM LARKIN 08/23/24 Atorvastatin Calcium (Lipitor) 40 Mg Tab, 40 MG PO DAILY for 40 Days, #40 TAB Prov:BERTRAM LARKIN 08/23/24 Bumetanide (Bumetanide) 1 Mg Tab, 1 TAB PO DAILY for 30 Days, #30 TAB Prov:BERTRAM LARKIN 08/23/24 Levetiracetam (Levetiracetam) 1,000 Mg Tab, 1 TAB PO BID for 30 Days, #60 TAB Prov:BERTRAM LARKIN [facility] 08/23/24 Hydrocodone-Acetaminophen (Hydrocodone Bitartrate/AC 5-325 mg) 1 Tab Tab, 1 TAB PO Q6HP PRN, #20 TAB Prov:MYRIAM CORNELIUS MD 08/06/24 Reported Medications Levetiracetam (Levetiracetam) 750 Mg Tab, 1 TAB PO GERARD for 30 Days, #60 TAKE 1 TABLET BY MOUTH ALONG WITH 1000 MG TWICE DAILY ON DIALYSIS DAYS. 08/16/24 Quetiapine Fumerate (QUETIAPINE FUMARATE) 50 Mg Tab, 1 TAB PO 06/07/24 Insulin Lispro (Insulin Lispro Thai Kwi) 100 Unit/Ml Inj 06/07/24 Olopatadine HCl (Olopatadine Hydrochloride) 0.1 % Melchor, 1 DROP LEFTEYE BID 06/07/24 Information Source: Patient Mode of Arrival: EMS Severity: Moderate Timing: Hours Duration: Since onset Past Medical History PAST MEDICAL HISTORY: AFIB, CHF, CVA, DM, ESRD, High Lipids, HTN, Schizophrenia, Seizures Past Medical History (Other): Blind left eye Surgical History: Denies all surgeries Family History Family History: Reviewed,noncontributory to illness Social History Smoker: Non-Smoker Alcohol: Denies ETOH Use Drugs: Denies Drug Use Lives In: Assisted Care Constitutional: denies: chills, diaphoresis, fatigue, fever, malaise, sweats, weakness, others EENTM: reports: blurred vision (right); denies: double vision, ear bleeding, ear discharge, ear drainage, ear pain, ear ringing, eye pain, eye redness, hearing loss, mouth pain, mouth swelling, nasal discharge, nose bleeding, nose congestion, nose pain, photophobia, tearing, throat pain, throat swelling, voice changes, others Respiratory: denies: cough, hemoptysis, orthopnea, SOB at rest, shortness of breath, SOB with excertion, stridor, wheezing, others Cardiovascular: denies: chest pain, dizzy spells, diaphoresis, Dyspnea on exertion, edema, irregular heart beat, left arm pain, lightheadedness, palpitations, PND, syncope, others Gastrointestinal: denies: abdomen distended, abdominal pain, blood streaked bowels, constipated, diarrhea, dysphagia, difficulty swallowing, hematemesis, melena, nausea, poor appetite, poor fluid intake, rectal bleeding, rectal pain, vomiting, others Genitourinary: denies: burning, dysuria, flank pain, frequency, hematuria, incontinence, penile discharge, penile sore, pain, testicle pain, testicle swelling, urgency, others Neurological: reports: headache, seizure; denies: dizziness, fainting, left sided numbness, left sided weakness, numbness, paresthesia, pre-existing defi cit, right sided numbness, right sided weakness, speech problems, tingling, tremors, weakness, others Musculoskeletal: denies: back pain, gout, joint pain, joint swelling, muscle pain, muscle stiffness, neck pain, others Integumetry: denies: bruises, change in color, change in hair/nails, dryness, laceration, lesions, lumps, rash, wounds, others Allergic/Immunocompromised: denies: Difficulty Healing, Frequent Infections, Hives, Itching, others Hematologic/Lymphatic: denies: anemia, blood clots, easy bleeding, easy bruising, swollen glands, others Endocrine: denies: excessive hunger, excessive sweating, excessive thirst, excessive urination, flushing, intolerance to cold, intolerance to heat, unexplained weight gain, unexplained weight loss, others Psychiatric: denies: anxiety, bipolar disorder, depression, hopeless, panic disorder, schizophrenia, sleepless, suicidal, others Physical Exam General Appearance: Mild Distress HEENT: Other (Extraocular movements intact. Left pupil nonreactive to light. Right pupil reactive to light.) Neck: Full Range of Motion, Non-Tender, Normal Inspection, Supple Respiratory: Lungs Clear, No Accessory Muscle Use, No Respiratory Distress, Normal Breath Sounds Cardiovascular: No Edema, No JVD, Regular Rate/Rhythm Breast Exam: Deferred Gastrointestinal: Non Tender, Soft Genitalia: Deferred Pelvic: Deferred Rectal: Deferred Extremities: Normal inspection, Normal range of motion, Non-tender, No pedal edema Neurologic: Alert (Oriented x4), Other (Anxious, tearful. Moves all extremities. No gross focal deficit.) Cerebellar Function: NOT DONE Reflexes: NOT DONE Skin: Dry, Normal Color, Warm Lymphatic: NOT DONE Was a procedure done? Was a procedure done?: No EKG EKG : Comments Sinus tach, rate 101, normal AK and QRS intervals, QTC 476, normal axis, possible old anteroseptal infarct, nonspecific T change. Differential Dx Considerations may include: Breakthrough seizure, subtherapeutic antiseizure medication levels, CVA, TIA, skull fracture, intracranial hemorrhage, Anemia, electrolyte imbalance, arrhythmia, hypertensive urgency/emergency, among others X-Ray, Labs, Meds, VS Vital Signs Date Time Temp Pulse Resp B/P (MAP) Pulse Ox O2 Delivery O2 Flow Rate FiO2 09/16/24 05:40 198/118 09/16/24 05:02 98 20 172/105 09/16/24 04:35 101 20 100 Room Air* 0 21 09/16/24 04:34 98.6 100 17 187/106 (133) 99 98.6 09/16/24 04:32 101 20 187/101 09/16/24 04:00 101 09/16/24 03:55 96.9 100 26 203/111 (141) 100 96.9 Lab Test 09/16/24 04:56 Range/Units White Blood Count 8.5 4.4-10.8 10^3/uL Red Blood Count 3.73 L 4.5-5.90 10^6/uL Hemoglobin 11.3 L 13.5-17.5 g/dL Hematocrit 32.5 L 41.0-53.0 % Mean Corpuscular Volume 86.9 80.0-100.0 fL Mean Corpuscular Hemoglobin 30.4 28.0-32.0 pg Mean Corpuscular Hemoglobin Concent 35.0 32.0-36.0 g/dL Red Cell Distribution Width 15.8 H 11.8-14.3 % Platelet Count 327 140-450 10^3/uL Mean Platelet Volume 6.8 L 6.9-10.8 fL Neutrophils (%) (Auto) 63.6 37.0-80.0 % Lymphocytes (%) (Auto) 25.1 10.0-50.0 % Monocytes (%) (Auto) 9.6 0.0-12.0 % Eosinophils (%) (Auto) 1.1 0.0-7.0 % Basophils (%) (Auto) 0.6 0.0-2.0 % Neutrophils # (Auto) 5.4 1.6-8.6 10 ^3/uL Lymphocytes # (Auto) 2.1 0.4-5.4 10 ^3/uL Monocytes # (Auto) 0.8 0-1.3 10 ^3/uL Eosinophils # (Auto) 0.1 0-0.8 10 ^3/uL Basophils # (Auto) 0.1 0-0.2 10 ^3/uL Nucleated Red Blood Cells 0.2 % Sodium Level 143 136-145 mmol/L Potassium Level 4.1 3.5-5.1 mmol/L Chloride Level 108 H 98-107 mmol/L Carbon Dioxide Level 22 20-31 mmol/L Anion Gap 13 5-15 Blood Urea Nitrogen 47 H 9-23 mg/dL Creatinine 5.58 H 0.700-1.30 mg/dL Glomerular Filtration Rate Calc 11 >90 mL/min BUN/Creatinine Ratio 8.4 L 10.0-20.0 Serum Glucose 179 H 74-106 mg/dL Calcium Level 10.2 8.7-10.4 mg/dL Troponin I High Sensitivity 15 </=54 ng/L Levetiracetam Level Pending Current Medications Medications (Trade) Dose Ordered Sig/Misty Route Start Time Stop Time Status Last Admin Morphine Sulfate 4 mg ONCE ONCE IV 09/16/24 04:00 09/16/24 04:03 DC 09/16/24 04:32 Ondansetron HCl (Zofran) 4 mg ONCE ONCE IV 09/16/24 04:00 09/16/24 04:03 DC 09/16/24 04:31 Hydralazine HCl (Apresoline Injection) 10 mg ONCE ONCE IV 09/16/24 05:30 09/16/24 05:31 DC 09/16/24 05:40 PROCEDURE(s): HWOCT - HEAD WITHOUT CONTRAST REASON: sz, head injury L temporal ORDER NUMBER(s): [id number], ACCESSION NUMBER(s): [id number] EXAM: CT HEAD WITHOUT CONTRAST INDICATION: sz, head injury L temporal TECHNIQUE: CT of the head without intravenous contrast. Radiation Dose : 1. Head: CT Dose: CTDI volume is 63 mGy. Dose-length product is 12 40 mGy*cm The dose indicators for CT are the volume Computed Tomography (CT) Dose Index (CTDIvol) and the Dose Length Product (DLP), and are measured in units of mGy and mGy-cm, respectively. These indicators are not patient dose, but values generated from the CT scanner acquisition factors. The report includes radiation exposure data for exposures received during this examination. COMPARISON: CT HEAD WITHOUT CONTRAST on DOS: 09/11/24, CT HEAD WITHOUT CONTRAST on DOS: 08/15/24, CT HEAD WITHOUT CONTRAST on DOS: 08/06/24, CT HEAD WITHOUT CONTRAST on DOS: 08/01/24, CT HEAD WITHOUT CONTRAST on DOS: 07/28/24 FINDINGS: There is no evidence of acute intracranial hemorrhage, extra-axial collection, mass effect, midline shift, herniation or hydrocephalus. The ventricles, sulci and cisterns are age appropriate. The bruno-white differentiation is intact. Patchy periventricular and subcortical white matter hypoattenuation is nonspecific but may be related to small vessel ischemic disease. The visualized paranasal sinuses and mastoid air cells are clear. Left parietal soft-tissue hematoma. IMPRESSION: No acute intracranial abnormality. Radiation optimization: All CT scans at this facility use at least one of these dose optimization techniques: automated exposure control mA and/or kV adjustment per patient size (includes targeted exams where dose is matched to clinical indication) or iterative reconstruction. X-Ray, Labs, Meds, VS Comment 53-year-old male with a history of seizures, CVA, left eye blindness, AFib, CHF, hypertension, diabetes, dyslipidemia, end-stage renal disease presenting stating he had a seizure, hit the right side of his head, and has new onset loss of vision in the right eye Initial vitals remarkable for respiratory rate 26, BP 203/111 Rhythm strip independently interpreted by me: Sinus tach, rate 101, no ectopy. CT head unremarkable CBC unremarkable, basic metabolic panel remarkable for BUN of 47, creatinine 5.58, Keppra level pending, troponin negative, UA pending Patient treated with the following in the ED: Placed on seizure precautions Morphine 4 mg IV, Zofran 4 mg IV, hydralazine 10 mg IV On re-evaluation, patient states headache has improved. Blood pressure is still elevated but improving. Plan is to admit the patient for blood pressure control, brain MRI and Neurology evaluation. Time of 1ST Reevaluation: 04:01 Reevaluation 1ST: Unchanged Patient Education/Counseling: Diagnosis, Treatment Family Education/Counseling: No Family Present SEPSIS Sepsis Screen Physician Orders Urinalysis (09/16/24 04:00) Electrocardigram (09/16/24 04:00) Head Without Contrast (09/16/24 04:00) Levetiracetam (Keppra) (09/16/24 04:00) Troponin-I Hs (09/16/24 05:00) Vital Signs Date Time Temp Pulse Resp B/P (MAP) Pulse Ox O2 Delivery O2 Flow Rate FiO2 09/16/24 05:40 198/118 09/16/24 05:02 98 20 172/105 09/16/24 04:35 101 20 100 Room Air* 0 21 09/16/24 04:34 98.6 100 17 187/106 (133) 99 98.6 09/16/24 04:32 101 20 187/101 09/16/24 04:00 101 09/16/24 03:55 96.9 100 26 203/111 (141) 100 96.9 Laboratory Tests Test 09/16/24 04:56 White Blood Count 8.5 10^3/uL (4.4-10.8) Medications Medications Dose Ordered Sig/Misty Route Start Time Stop Time Status Last Admin Dose Admin Hydralazine HCl 10 mg ONCE ONCE IV 09/16/24 05:30 09/16/24 05:31 DC 09/16/24 05:40 Morphine Sulfate 4 mg ONCE ONCE IV 09/16/24 04:00 09/16/24 04:03 DC 09/16/24 04:32 Ondansetron HCl 4 mg ONCE ONCE IV 09/16/24 04:00 09/16/24 04:03 DC 09/16/24 04:31 Departure 1 Departure Time of Disposition: 05:22 Impression: Primary Impression: Seizure Additional Impression: Hypertensive emergency Disposition: ADMITTED INPATIENT Admit to: Tele Condition: Guarded Critical Care Note Critical Care Time?: Yes (35 min-critical care time only) Critical care comment: Critical care time including multiple bedside re-evaluations, review of lab and imaging studies, and discussion of the case with the admitting provider. Patient is high risk for hemodynamic and/or neurologic decompensation. Stability Stability form required: No Heart Score Heart Score: Heart Score Response (Comments) Value History N/A 0 EKG N/A 0 Age N/A 0 Risk Factors N/A 0 Troponin N/A 0 Total 0 I personally scribed for QASIM BEJARANO MD ([email or web address]) on 09/16/24 at 04:10. Electronically submitted by Nabeel Merino ([facility]). QASIM BEJARANO MD Sep 16, 2024 04:10
[2024-09-16] MEDS: ONDANSETRON HCL 4 MG/2 ML VIAL IV ONE (04:31)
[2024-09-16] MEDS: MORPHINE SULFATE 4 MG/ML SYR/VIAL IV ONE (04:32)
[2024-09-16 04:35] VITALS: PULSE 101; RESP 20; O2SAT 100
--- NOTE | 2024-09-16 05:32 | DVH ---
EXAM: CT HEAD WITHOUT CONTRAST INDICATION: sz, head injury L temporal TECHNIQUE: CT of the head without intravenous contrast. Radiation Dose : 1. Head: CT Dose: CTDI volume is 63 mGy. Dose-length product is 12 40 mGy*cm The dose indicators for CT are the volume Computed Tomography (CT) Dose Index (CTDIvol) and the Dose Length Product (DLP), and are measured in units of mGy and mGy-cm, respectively. These indicators are not patient dose, but values generated from the CT scanner acquisition factors. The report includes radiation exposure data for exposures received during this examination. COMPARISON: CT HEAD WITHOUT CONTRAST on DOS: 09/11/24, CT HEAD WITHOUT CONTRAST on DOS: 08/15/24, CT HE AD WITHOUT CONTRAST on DOS: 08/06/24, CT HEAD WITHOUT CONTRAST on DOS: 08/01/24, CT HEAD WITHOUT CONTRA ST on DOS: 07/28/24 FINDINGS: There is no evidence of acute intracranial hemorrhage, extra-axial collection, mass effect, midline s hift, herniation or hydrocephalus. The ventricles, sulci and cisterns are age appropriate. The bruno-white differentiation is intact. Patchy periventricular and subcortical white matter hypoattenuation is nonspecific but may be related to small vessel ischemic disease. The visualized paranasal sinuses and mastoid air cells are clear. Left parietal soft-tissue hematoma. IMPRESSION: No acute intracranial abnormality. Radiation optimization: All CT scans at this facility use at least one of these dose optimization bob hniques: automated exposure control mA and/or kV adjustment per patient size (includes targeted exam s where dose is matched to clinical indication) or iterative reconstruction.
[2024-09-16 05:38] LABS: Potassium 4.1 mmol/L (3.5-5.1); Sodium 143 mmol/L (136-145)
[2024-09-16 05:39] LABS: Anion Gap 13 (5-15); Carbon Dioxide 22 mmol/L (20-31)
[2024-09-16 05:40] LABS: Calcium 10.2 mg/dL (8.7-10.4)
[2024-09-16] MEDS: hydrALAZINE HCL 20 MG/ML VL IV ONE ×2 (05:40→08:59)
[2024-09-16 05:42] LABS: Hematocrit 32.5 % (41.0-53.0); Hemoglobin 11.3 g/dL (13.5-17.5); Mean Corpuscular Hemoglobin 30.4 pg (28.0-32.0); Mean Corpuscular Volume 86.9 fL (80.0-100.0); Nucleated Red Blood Cells % 0.2 %
[2024-09-16 05:45] LABS: BUN/Creatinine Ratio 8.4 (10.0-20.0); Blood Urea Nitrogen 47 mg/dL (9-23); Chloride 108 mmol/L (98-107); Glucose 179 mg/dL (74-106)
[2024-09-16] MEDS: HYDROmorphone HCL 2 MG/ML VL/or syr IV ONE (06:57)
--- NOTE | 2024-09-16 07:00 | ECG ---
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
[2024-09-16] MEDS ORDERED: DEXTROSE (50%) 50ML SYRG IV PRN (08:30)
[2024-09-16] MEDS ORDERED: hydrALAZINE HCL 20 MG/ML VL IV PRN (08:30)
--- NOTE | 2024-09-16 08:40 | DVHHP2 ---
History of Present Illness Reason for Visit: Seizure History of Present Illness Stu Goins is a 53-year-old male with past medical history of left eye blindness, hypertension, hyperlipidemia, diabetes, AFib, CHF, schizophrenia, CVA with left-sided hemiparesis, seizure, ESRD on HD (M/W/F) and PermCath who presents to the ED with seizures and headache. Patient also reports that he has blurred vision on the right eye that started today. Patient reports that his head hurts because he fell and hit his head. He also states that he had shingles 3 days ago. Patient reports that he is from a recuperative care. He also endorses that he is compliant with his medications. He states that he smokes 1 - 2 cigarettes per day, denies drug use, and denies alcohol use. Patient denies any chest pain, shortness of breath, fever, chills, lightheadedness, weakness, dizziness, abdominal pain, nausea, vomiting, diarrhea, urinary symptoms, recent sick contacts, recent travels, or recent ingestion of spoiled food. Cardiovascular: AFIB, CHF, HTN, hyperipidemia CLIENT SERVICE REPRESENTATIVE: Other (CVA with left-sided hemiparesis And seizure) Psych: Schizophrenia Renal/: Chronic renal failure Endocrine: Diabetes Past Surgical History: Other (PermCath) Smoke: <1 pack per day ALCOHOL: none Drugs: None Lives: Roommate Domestic Violence: Neg Review of Systems Eyes: Vision change Neurological: Seizures Allergies: Coded Allergies: Erythromycin (Verified Allergy, Unknown, 04/17/24) Penicillins (Verified Allergy, Unknown, 04/17/24) Medications Current Medications Medications Dose Ordered Sig/Misty Route Start Time Stop Time Status Last Admin Dose Admin Levetiracetam 100 ml @ 400 mls/hr DAILY IV 09/16/24 10:00 UNV Ondansetron HCl 4 mg Q4HP PRN IV 09/16/24 08:30 UNV Enoxaparin Sodium 40 mg DAILY SC 09/16/24 10:00 UNV Acetaminophen 650 mg Q6HP PRN PO 09/16/24 08:30 UNV Diagnostic Test (Pha) 1 strip ACHS 09/16/24 11:30 UNV Insulin Human Regular ACHS SC 09/16/24 11:30 UNV Dextrose 50 ml UD PRN IV 09/16/24 08:30 UNV Hydralazine HCl 10 mg Q6HP PRN IV 09/16/24 08:30 UNV Exam Vital Signs Vital Signs Date Time Temp Pulse Resp B/P (MAP) Pulse Ox O2 Delivery O2 Flow Rate FiO2 09/16/24 08:21 97.5 103 18 169/108 (128) 98 97.5 09/16/24 04:35 Room Air* 0 21 General Appearance: Alert, Oriented X3, Cooperative HEENT: Atraumatic Respiratory: Normal air movement Cardiovascular: Normal S1, Normal S2 Abdominal: Soft Neuro: Normal speech, Normal tone, Sensation intact Psych/Mental Status: Mental status NL Labs/Xrays Labs Test 09/16/24 05:52 09/16/24 04:56 Range/Units Troponin I High Sensitivity 15 </=54 ng/L White Blood Count 8.5 4.4-10.8 10^3/uL Red Blood Count 3.73 L 4.5-5.90 10^6/uL Hemoglobin 11.3 L 13.5-17.5 g/dL Hematocrit 32.5 L 41.0-53.0 % Mean Corpuscular Volume 86.9 80.0-100.0 fL Mean Corpuscular Hemoglobin 30.4 28.0-32.0 pg Mean Corpuscular Hemoglobin Concent 35.0 32.0-36.0 g/dL Red Cell Distribution Width 15.8 H 11.8-14.3 % Platelet Count 327 140-450 10^3/uL Mean Platelet Volume 6.8 L 6.9-10.8 fL Neutrophils (%) (Auto) 63.6 37.0-80.0 % Lymphocytes (%) (Auto) 25.1 10.0-50.0 % Monocytes (%) (Auto) 9.6 0.0-12.0 % Eosinophils (%) (Auto) 1.1 0.0-7.0 % Basophils (%) (Auto) 0.6 0.0-2.0 % Neutrophils # (Auto) 5.4 1.6-8.6 10 ^3/uL Lymphocytes # (Auto) 2.1 0.4-5.4 10 ^3/uL Monocytes # (Auto) 0.8 0-1.3 10 ^3/uL Eosinophils # (Auto) 0.1 0-0.8 10 ^3/uL Basophils # (Auto) 0.1 0-0.2 10 ^3/uL Nucleated Red Blood Cells 0.2 % Sodium Level 143 136-145 mmol/L Potassium Level 4.1 3.5-5.1 mmol/L Chloride Level 108 H 98-107 mmol/L Carbon Dioxide Level 22 20-31 mmol/L Anion Gap 13 5-15 Blood Urea Nitrogen 47 H 9-23 mg/dL Creatinine 5.58 H 0.700-1.30 mg/dL Glomerular Filtration Rate Calc 11 >90 mL/min BUN/Creatinine Ratio 8.4 L 10.0-20.0 Serum Glucose 179 H 74-106 mg/dL Calcium Level 10.2 8.7-10.4 mg/dL EXAM: CT HEAD WITHOUT CONTRAST INDICATION: sz, head injury L temporal TECHNIQUE: CT of the head without intravenous contrast. Radiation Dose : 1. Head: CT Dose: CTDI volume is 63 mGy. Dose-length product is 12 40 mGy*cm The dose indicators for CT are the volume Computed Tomography (CT) Dose Index (CTDIvol) and the Dose Length Product (DLP), and are measured in units of mGy and mGy-cm, respectively. These indicators are not patient dose, but values gen erated from the CT scanner acquisition factors. The report includes radiation exposure data for exposures received during this examination. COMPARISON: CT HEAD WITHOUT CONTRAST on DOS: 09/11/24, CT HEAD WITHOUT CONTRAST on DOS: 08/15/24, CT HEAD WITHOUT CONTRAST on DOS: 08/06/24, CT HEAD WITHOUT CONTRAST on DOS: 08/01/24, CT HEAD WITHOUT CONTRAST on DOS: 07/28/24 FINDINGS: There is no evidence of acute intracranial hemorrhage, extra-axial collection, mass effect, midline shift, herniation or hydrocephalus. The ventricles, sulci and cisterns are age appropriate. The bruno-white differentiation is intact. Patchy periventricular and subcortical white matter hypoattenuation is nonspecific but may be related to small vessel ischemic disease. The visualized paranasal sinuses and mastoid air cells are clear. Left parietal soft-tissue hematoma. IMPRESSION: No acute intracranial abnormality. Assessment/Plan Assessment/Plan Assessment Hypertensive urgency Anemia Acute on chronic kidney disease requiring HD (M/W/F) with PermCath Visual disturbances of right eye Recent infection of shingles per patient reports Tobacco use History of hypertension History of left eye blindness History of hyperlipidemia History of diabetes History of AFib History of CHF History of schizophrenia History of CVA with left-sided hemiparesis History of seizures Plan Admit to med surge IV Keppra Antihypertensives Pain management Antiemetics Troponin noted negative x2 CT head noted UA Strict I&Os Daily weight Hemoglobin A1c ISS and Accu-Cheks Checks x-ray ordered Diet Home medications reconciled DVT prophylaxis-patient on Eliquis PUD prophylaxis-PPIs Discussed plan of care with patient and nurse Isolation Counseled patient on cessation of tobacco use Nephro consult Neuro consult Plan discussed with: Patient My Orders Orders - MICHELLE PETERSEN Procedure Category Date Status Time Levetiracetam 1000 PHA 09/16/24 Logged Mg/100ml (Levetiracet 10:00 * Neurology Consult CONS 09/16/24 Transmitted 08:25 Admit ADMIT 09/16/24 Transmitted 08:25 Allergies YOLY 09/16/24 In Process 08:25 Code Status CODE 09/16/24 Transmitted 08:25 Ondansetron Hcl PHA 09/16/24 Logged (Zofran) 08:30 Enoxaparin Sodium PHA 09/16/24 Logged (Lovenox) 10:00 Complete Blood Count LAB 09/17/24 Verified 04:00 Comprehensive LAB 09/17/24 Verified Metabolic Panel 04:00 Cardiac DIET 09/16/24 Transmitted Diet-2gna,Lofat,Lochol Breakfast Acetaminophen Tablet PHA 09/16/24 Logged (Tylenol Tablet) 08:30 *Dr. Deniz Steele CONS 09/16/24 Transmitted -[place] 08:25 Urinalysis LAB 09/16/24 Logged 08:25 Glucose Blood PHA 09/16/24 Logged (Accu-Chek Comfort 11:30 Insulin R (Human) PHA 09/16/24 Logged (Insulin R) 11:30 Dextrose 50% Syringe PHA 09/16/24 Logged 08:30 Isolation Order ORDERS 09/16/24 Transmitted 08:27 Hydralazine Injection PHA 09/16/24 Transmitted (Apresoline Inject 08:30 Date of Service: Sep 16, 2024 Billing Provider: MICHELLE PETERSEN Common Visit Codes: [id number] INP/OBS CARE (HIGH) MICHELLE PETERSEN Sep 16, 2024 08:40
[2024-09-16] MEDS: ACETAMINOPHEN 325 MG TAB PO PRN (08:59)
[2024-09-16] MEDS: levETIRAcetam 1000 mg/100ml 100 ML IV SCH (08:59)
[2024-09-16] MEDS: levETIRAcetam 500 mg/100ml 100 ML IV ONE (09:00)
--- NOTE | 2024-09-16 09:17 | DVH ---
CHEST RADIOGRAPH Indication: r/o pna Technique: Single frontal view of the chest was obtained Comparison: None FINDINGS: Right IJ basilio catheter tip projects over the cavoatrial junction. The cardiac silhouette is unremarkable. The lungs demonstrate no pulmonary airspace consolidation. Th e pulmonary vasculature is mildly prominent. There is no pleural effusion.. There is no pneumothorax. Old mid clavicular fracture. IMPRESSION: Mild pulmonary vasculature congestion.
[2024-09-16] MEDS ORDERED: ENOXAPARIN SOD 40 MG/0.4 ML SYRINGE SC SCH (10:00)
[2024-09-16] MEDS: APIXABAN 2.5 MG TAB PO SCH (10:30)
[2024-09-16] MEDS: CARVEDILOL 12.5 MG TAB PO SCH (10:31)
[2024-09-16] MEDS: OLOPATADINE HCL LEFTEYE SCH (10:31)
[2024-09-16] MEDS: BUMETANIDE 1 MG TAB PO SCH (10:31)
[2024-09-16] MEDS: ACCU-CHEK COMFORT CURVE STRIP VI SCH (11:40)
[2024-09-16] MEDS: InsuLIN REG 1unit/0.01ml Soln (100units/ml) SC SCH (11:43)
--- NOTE | 2024-09-16 11:59 | DVHINCON2 ---
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, positive drug abuser Past Medical History As per HPI Past Surgical History Tunneled dialysis catheter placement Allergies: Coded Allergies: Erythromycin (Verified Allergy, Unknown, 04/17/24) Penicillins (Verified Allergy, Unknown, 04/17/24) Home Meds Active Scripts Acyclovir (Acyclovir) 400 Mg Tab, 800 MG PO TID for 14 Days, #84 TAB Prov:HILDA MURPHY MD 09/05/24 Isosorbide Dinitrate (Isosorbide Dinitrate) 10 Mg Tab, 2 TAB PO TID@0600,1200,1800 for 5 Days, #30 TAB Prov:BERTRAM L[facility]IN [facility] 08/23/24 Hydralazine Hcl (Hydralazine Hcl) 25 Mg Tab, 25 MG PO TID for 90 Days, #270 [facility]/24 Carvedilol (COREG) 12.5 Mg Tab, 12.5 MG PO Q12HR for 30 Days, #60 TAB Prov:BERTRAM L[facility] 08/23/24 Apixaban Base (ELIQUIS) 2.5 Mg Tab, 2.5 MG PO BID for 30 Days, #60 TAB Prov:BERTRAM LARKIN [facility] 08/23/24 Atorvastatin Calcium (Lipitor) 40 Mg Tab, 40 MG PO DAILY for 40 Days, #40 TAB Prov:BERTRAM LARKIN [facility] 08/23/24 Bumetanide (Bumetanide) 1 Mg Tab, 1 TAB PO DAILY for 30 Days, #30 TAB Prov:BERTRAM L[facility]IN [facility] 08/23/24 Levetiracetam (Levetiracetam) 1,000 Mg Tab, 1 TAB PO BID for 30 Days, #60 TAB Prov:BERTRAM L[facility]IN [facility] 08/23/24 Hydrocodone-Acetaminophen (Hydrocodone Bitartrate/AC 5-325 mg) 1 Tab Tab, 1 TAB PO Q6HP PRN, #20 TAB Prov:MYRIAM CORNELIUS MD 08/06/24 Reported Medications Levetiracetam (Levetiracetam) 750 Mg Tab, 1 TAB PO GERARD for 30 Days, #60 TAKE 1 TABLET BY MOUTH ALONG WITH 1000 MG TWICE DAILY ON DIALYSIS DAYS. 08/16/24 Quetiapine Fumerate (QUETIAPINE FUMARATE) 50 Mg Tab, 1 TAB PO 06/07/24 Insulin Lispro (Insulin Lispro Thai Kwi) 100 Unit/Ml Inj 06/07/24 Olopatadine HCl (Olopatadine Hydrochloride) 0.1 % Melchor, 1 DROP LEFTEYE BID 06/07/24 Current Medications Current Medications Medications (Trade) Dose Ordered Sig/Misty Route PRN Reason Start Time Stop Time Status Last Admin Levetiracetam 100 ml @ 400 mls/hr DAILY IV 09/16/24 10:00 09/16/24 08:59 Ondansetron HCl (Zofran) 4 mg Q4HP PRN IV NAUSEA / VOMITING 09/16/24 08:30 Enoxaparin Sodium (Lovenox) 40 mg DAILY SC 09/16/24 10:00 09/16/24 08:38 DC Acetaminophen (Tylenol Tablet) 650 mg Q6HP PRN PO PAIN SCALE 1-3 OR TEMP>100.4 09/16/24 08:30 09/16/24 08:59 Diagnostic Test (Pha) (Accu-Chek Comfort Curve T) 1 strip ACHS 09/16/24 11:30 09/16/24 17:46 Insulin Human Regular (InsuLIN R) ACHS SC 09/16/24 11:30 09/16/24 11:43 Dextrose 50 ml UD PRN IV Blood Sugar LESS THAN 60 09/16/24 08:30 Hydralazine HCl (Apresoline Injection) 10 mg Q6HP PRN IV SBP>150 09/16/24 08:30 Apixaban (Eliquis) 2.5 mg BID PO 09/16/24 10:00 09/16/24 10:30 Bumetanide (Bumex Tablet) 1 mg DAILY PO 09/16/24 10:00 09/16/24 10:31 Carvedilol (Coreg Tablet) 12.5 mg Q12HR PO 09/16/24 10:00 09/16/24 10:31 Hydralazine HCl (Apresoline Tablet) 25 mg TID PO 09/16/24 14:00 Isosorbide Dinitrate (Isordil Tablet) 20 mg TID@0600,1200,1800 PO 09/16/24 12:00 09/16/24 18:09 Atorvastatin Calcium (Lipitor) 40 mg HS PO 09/16/24 22:00 Patient Own Medication 1 drop BID LEFTEYE 09/16/24 10:00 Quetiapine Fumarate (SEROquel TABLET) 50 mg HS PO 09/16/24 22:00 Acetaminophen/ Hydrocodone Bitart ([place] 5/325MG Tab) 1 tab Q4HPRN PRN PO SEVERE PAIN (7-10 PAIN SCALE) 09/16/24 10:45 Family History: Patient reports no known family medical history. Review of Systems As documented in HPI H&P Exam Vital Signs/I&O Vital Sign Date Time Temp Pulse Resp B/P (MAP) Pulse Ox O2 Delivery O2 Flow Rate FiO2 09/16/24 18:27 89 13 128/66 (86) 09/16/24 15:00 99 09/16/24 14:00 Room Air* 0 21 09/16/24 13:35 98.0 98.0 Physical Exam Non cooperative patient Labs/Diagnostic Data Labs/Diagnostic Data Laboratory Tests Test 09/16/24 17:40 09/16/24 11:38 09/16/24 07:20 09/16/24 05:52 Range/Units POC Glucose 131 H 211 H 70-106 mg/dl Urine Color Light-yellow Yellow Urine Clarity Clear Clear Urine pH 7.0 5.0-9.0 Urine Specific [place] 1.018 1.001-1.035 Urine Protein 3+ H Negative Urine Ketones Negative Negative Urine Blood Trace H Negative /uL Urine Nitrite Negative Negative Urine Bilirubin Negative Negative Urine Urobilinogen Normal Negative mg/dL Urine Leukocyte Esterase Negative Negative /uL Urine RBC 1 0 - 3 /hpf Urine Microscopic WBC 1 0-3 /HPF Urine Squamous Epithelial Cells None seen <5 /hpf Urine Bacteria None seen None Seen /hpf Urine Glucose 3+ H Normal mg/dL Troponin I High Sensitivity 15 </=54 ng/L Test 09/16/24 04:56 Range/Units White Blood Count 8.5 4.4-10.8 10^3/uL Red Blood Count 3.73 L 4.5-5.90 10^6/uL Hemoglobin 11.3 L 13.5-17.5 g/dL Hematocrit 32.5 L 41.0-53.0 % Mean Corpuscular Volume 86.9 80.0-100.0 fL Mean Corpuscular Hemoglobin 30.4 28.0-32.0 pg Mean Corpuscular Hemoglobin Concent 35.0 32.0-36.0 g/dL Red Cell Distribution Width 15.8 H 11.8-14.3 % Platelet Count 327 140-450 10^3/uL Mean Platelet Volume 6.8 L 6.9-10.8 fL Neutrophils (%) (Auto) 63.6 37.0-80.0 % Lymphocytes (%) (Auto) 25.1 10.0-50.0 % Monocytes (%) (Auto) 9.6 0.0-12.0 % Eosinophils (%) (Auto) 1.1 0.0-7.0 % Basophils (%) (Auto) 0.6 0.0-2.0 % Neutrophils # (Auto) 5.4 1.6-8.6 10 ^3/uL Lymphocytes # (Auto) 2.1 0.4-5.4 10 ^3/uL Monocytes # (Auto) 0.8 0-1.3 10 ^3/uL Eosinophils # (Auto) 0.1 0-0.8 10 ^3/uL Basophils # (Auto) 0.1 0-0.2 10 ^3/uL Nucleated Red Blood Cells 0.2 % Sodium Level 143 136-145 mmol/L Potassium Level 4.1 3.5-5.1 mmol/L Chloride Level 108 H 98-107 mmol/L Carbon Dioxide Level 22 20-31 mmol/L Anion Gap 13 5-15 Blood Urea Nitrogen 47 H 9-23 mg/dL Creatinine 5.58 H 0.700-1.30 mg/dL Glomerular Filtration Rate Calc 11 >90 mL/min BUN/Creatinine Ratio 8.4 L 10.0-20.0 Serum Glucose 179 H 74-106 mg/dL Calcium Level 10.2 8.7-10.4 mg/dL Troponin I High Sensitivity 15 </=54 ng/L Assessment ESRD on hemodialysis Seizures Hypertension AFib Congestive heart failure Recommendations Dialysis will be arranged today Rest of the management per primary Plan discussed with: Patient SHAYY FERNANDES MD Sep 16, 2024 11:59
[2024-09-16] MEDS: SODIUM CHL 0.9% 1000 ML BAG XX ONE (12:00)
[2024-09-16] MEDS: ISOSORBIDE DINITRATE 10 MG TAB PO SCH (12:25)
[2024-09-16 13:42] LABS: Urine Protein, UAD 3+ (Negative)
[2024-09-16 14:00] VITALS: PULSE 84; RESP 13
--- NOTE | 2024-09-16 20:10 | DVHINCON2 ---
Date of service: Sep 16, [address] Ewing Reason for Consultation Seizure History of Present Illness Mr. Goins is a 53 years old left-handed gentleman with a history of hypertension, diabetes, dyslipidemia, congestive heart failure, atrial fibrillation, stroke (not confirmed with him), seizure, schizophrenia, left eye blindness, she came to the hospital on 09/16/2024 with a chief complaint of seizure activity, at that time, he is awake, oriented x3, but is very emotional, he cries inform me, and he was not happy because I asked him to many questions. He says remembers going to bed in the evening on 09/15/2024, but the next memory was waking up wet, and he presumed when he had seizure. He relates he has seizure disorder for about 10 years, he does not know the seizure symptoms, he does not know how often he has seizure, he does not know when was last time he had seizure before this, he says he has no history of head trauma, intracranial infection, stroke, he reports he is on Keppra 3000 mg daily (according to reconciled medication list, he maybe on 1750 mg b.i.d.) He also tells me that he has history of left eye blindness, but since the mornin g, the right eye has been blind with no light perception, he also reports pain in the right eye Urinalysis, 08/28/1910/09/2024: Unremarkable WBC/HB/PLT/MCV, 09/16/24: 8.5/11.3/327/86.9 BUN/CR, 09/16/2024: 57/5.58 HGB A1c, 08/17/2024: 8.1 Ferritin, 08/22/24: 515.2 TG/HDL/LDL/HDL, 07/08/2024: 176/274/188/50 CT head, 09/16/2024: No acute intracranial abnormality Past Medical History Hypertension, diabetes, dyslipidemia, congestive heart failure, atrial fi brillation, stroke, seizure, schizophrenia, left eye blindness Past Surgical History He does not know if he had surgery before Family History: Patient reports no known family medical history. Family History Refused to answer Social History Refused to answer Allergies: Coded Allergies: Erythromycin (Verified Allergy, Unknown, 04/17/24) Penicillins (Verified Allergy, Unknown, 04/17/24) Home Meds Active Scripts Acyclovir (Acyclovir) 400 Mg Tab, 800 MG PO TID for 14 Days, #84 TAB Prov:HILDA MURPHY MD 09/05/24 Isosorbide Dinitrate (Isosorbide Dinitrate) 10 Mg Tab, 2 TAB PO TID@0600,1200,1800 for 5 Days, #30 TAB Prov:[facility] 08/23/24 Hydralazine Hcl (Hydralazine Hcl) 25 Mg Tab, 25 MG PO TID for 90 Days, #270 TAB Prov:[facility] 08/23/24 Carvedilol (COREG) 12.5 Mg Tab, 12.5 MG PO Q12HR for 30 Days, #60 TAB Prov:[facility] 08/23/24 Apixaban Base (ELIQUIS) 2.5 Mg Tab, 2.5 MG PO BID for 30 Days, #60 TAB Prov:[facility] 08/23/24 Atorvastatin Calcium (Lipitor) 40 Mg Tab, 40 MG PO DAILY for 40 Days, #40 TAB Prov:CL[facility] 08/23/24 Bumetanide (Bumetanide) 1 Mg Tab, 1 TAB PO DAILY for 30 Days, #30 TAB Prov:[facility] 08/23/24 Levetiracetam (Levetiracetam) 1,000 Mg Tab, 1 TAB PO BID for 30 Days, #60 TAB Prov:[facility] 08/23/24 Hydrocodone-Acetaminophen (Hydrocodone Bitartrate/AC 5-325 mg) 1 Tab Tab, 1 TAB PO Q6HP PRN, #20 TAB Prov:MYRIAM CORNELIUS MD 08/06/24 Reported Medications Levetiracetam (Levetiracetam) 750 Mg Tab, 1 TAB PO GERARD for 30 Days, #60 TAKE 1 TABLET BY MOUTH ALONG WITH 1000 MG TWICE DAILY ON DIALYSIS DAYS. 08/16/24 Quetiapine Fumerate (QUETIAPINE FUMARATE) 50 Mg Tab, 1 TAB PO 06/07/24 Insulin Lispro (Insulin Lispro Thai Kwi) 100 Unit/Ml Inj 06/07/24 Olopatadine HCl (Olopatadine Hydrochloride) 0.1 % Melchor, 1 DROP LEFTEYE BID 06/07/24 Current Medications Current Medications Medications (Trade) Dose Ordered Sig/Misty Route PRN Reason Start Time Stop Time Status Last Admin Levetiracetam 100 ml @ 400 mls/hr DAILY IV 09/16/24 10:00 09/16/24 08:59 Ondansetron HCl (Zofran) 4 mg Q4HP PRN IV NAUSEA / VOMITING 09/16/24 08:30 Enoxaparin Sodium (Lovenox) 40 mg DAILY SC 09/16/24 10:00 09/16/24 08:38 DC Acetaminophen (Tylenol Tablet) 650 mg Q6HP PRN PO PAIN SCALE 1-3 OR TEMP>100.4 09/16/24 08:30 09/16/24 08:59 Diagnostic Test (Pha) (Accu-Chek Comfort Curve T) 1 strip ACHS 09/16/24 11:30 09/16/24 17:46 Insulin Human Regular (InsuLIN R) ACHS SC 09/16/24 11:30 09/16/24 11:43 Dextrose 50 ml UD PRN IV Blood Sugar LESS THAN 60 09/16/24 08:30 Hydralazine HCl (Apresoline Injection) 10 mg Q6HP PRN IV SBP>150 09/16/24 08:30 Apixaban (Eliquis) 2.5 mg BID PO 09/16/24 10:00 09/16/24 10:30 Bumetanide (Bumex Tablet) 1 mg DAILY PO 09/16/24 10:00 09/16/24 10:31 Carvedilol (Coreg Tablet) 12.5 mg Q12HR PO 09/16/24 10:00 09/16/24 10:31 Hydralazine HCl (Apresoline Tablet) 25 mg TID PO 09/16/24 14:00 Isosorbide Dinitrate (Isordil Tablet) 20 mg TID@0600,1200,1800 PO 09/16/24 12:00 09/16/24 18:09 Atorvastatin Calcium (Lipitor) 40 mg HS PO 09/16/24 22:00 Patient Own Medication 1 drop BID LEFTEYE 09/16/24 10:00 Quetiapine Fumarate (SEROquel TABLET) 50 mg HS PO 09/16/24 22:00 Acetaminophen/ Hydrocodone Bitart ([place] 5/325MG Tab) 1 tab Q4HPRN PRN PO SEVERE PAIN (7-10 PAIN SCALE) 09/16/24 10:45 Review of Systems Refused to answer Vital Signs Vital Signs Date Time Temp Pulse Resp B/P (MAP) Pulse Ox O2 Delivery O2 Flow Rate FiO2 09/16/24 18:27 89 13 128/66 (86) 09/16/24 15:00 99 09/16/24 14:00 Room Air* 0 21 09/16/24 13:35 98.0 98.0 Physical Exam GENERAL EXAM: General: the patient is well developed and nourished. No acute distress. HEENT: Normocephalic, neck is supple, no carotid bruits. No mass. RESPIRATORY: Normal respiratory effort with symmetrical lung expansion. Lungs clear to auscultation. CARDIOVASCULAR: Regular rate and rhythm with no murmurs. S1, S2. ABDOMEN: Soft, nontender, normal bowel sound NEUROLOGICAL: MENTAL STATUS: HPI SPEECH, LANGUAGE, HIGHER CORTICAL FUNCTION: no aphasia or dysathria. CRANIAL NERVES: #2: He reports no light perception #3,4,6: Not cooperative. #5: Facial sensation ok in all three divisions bilaterally. Mandibular strength intact. #7: Facial muscles symmetrical and strength intact. #8: Hearing grossly normal to voice. #9,10: Deferred #11: Not cooperative, but he has no problem to move the head from [id number] #12: Deferred SENSATION: Sensation to touch and pinprick feels fine MOTOR: Normal tone in the upper and lower extremity. Normal muscle bulk. No fasciculations. No abnormal movements or posturing. He moves the arms and legs with no problem REFLEXES: Deep tendon reflexes are symmetrical. No pathological reflexes. (inadequate examined) CEREBELLAR/COORDINATION: Deferred GAIT/STATION: deferred. Labs/Diagnostic Data Labs Test 09/16/24 17:40 09/16/24 07:20 09/16/24 05:52 09/16/24 04:56 Range/Units POC Glucose 131 H 70-106 mg/dl Urine Color Light-yellow Yellow Urine Clarity Clear Clear Urine pH 7.0 5.0-9.0 Urine Specific [place] 1.018 1.001-1.035 Urine Protein 3+ H Negative Urine Ketones Negative Negative Urine Blood Trace H Negative /uL Urine Nitrite Negative Negative Urine Bilirubin Negative Negative Urine Urobilinogen Normal Negative mg/dL Urine Leukocyte Esterase Negative Negative /uL Urine RBC 1 0 - 3 /hpf Urine Microscopic WBC 1 0-3 /HPF Urine Squamous Epithelial Cells None seen <5 /hpf Urine Bacteria None seen None Seen /hpf Urine Glucose 3+ H Normal mg/dL Troponin I High Sensitivity 15 </=54 ng/L White Blood Count 8.5 4.4-10.8 10^3/uL Red Blood Count 3.73 L 4.5-5.90 10^6/uL Hemoglobin 11.3 L 13.5-17.5 g/dL Hematocrit 32.5 L 41.0-53.0 % Mean Corpuscular Volume 86.9 80.0-100.0 fL Mean Corpuscular Hemoglobin 30.4 28.0-32.0 pg Mean Corpuscular Hemoglobin Concent 35.0 32.0-36.0 g/dL Red Cell Distribution Width 15.8 H 11.8-14.3 % Platelet Count 327 140-450 10^3/uL Mean Platelet Volume 6.8 L 6.9-10.8 fL Neutrophils (%) (Auto) 63.6 37.0-80.0 % Lymphocytes (%) (Auto) 25.1 10.0-50.0 % Monocytes (%) (Auto) 9.6 0.0-12.0 % Eosinophils (%) (Auto) 1.1 0.0-7.0 % Basophils (%) (Auto) 0.6 0.0-2.0 % Neutrophils # (Auto) 5.4 1.6-8.6 10 ^3/uL Lymphocytes # (Auto) 2.1 0.4-5.4 10 ^3/uL Monocytes # (Auto) 0.8 0-1.3 10 ^3/uL Eosinophils # (Auto) 0.1 0-0.8 10 ^3/uL Basophils # (Auto) 0.1 0-0.2 10 ^3/uL Nucleated Red Blood Cells 0.2 % Sodium Level 143 136-145 mmol/L Potassium Level 4.1 3.5-5.1 mmol/L Chloride Level 108 H 98-107 mmol/L Carbon Dioxide Level 22 20-31 mmol/L Anion Gap 13 5-15 Blood Urea Nitrogen 47 H 9-23 mg/dL Creatinine 5.58 H 0.700-1.30 mg/dL Glomerular Filtration Rate Calc 11 >90 mL/min BUN/Creatinine Ratio 8.4 L 10.0-20.0 Serum Glucose 179 H 74-106 mg/dL Calcium Level 10.2 8.7-10.4 mg/dL Assessment Seizure disorder with seizure breakthrough Acute right eye blindness without light perception Reports stroke, not confirmed with the patient Plan/Recommendation Monitoring Supportive treatment Telemetry Keppra 1500 mg b.i.d. Ativan for seizure breakthrough Transfer higher level care, need ophthalmology Re: acute right eye blindness Plan discussed with: Other KATHY HOYT MD Sep 16, 2024 20:10
[2024-09-16] MEDS ORDERED: LORazepam 2MG/ML-1ML VIAL IV PRN (22:00)
[2024-09-16] MEDS: ATORVASTATIN 20 MG TAB PO SCH (22:05)
[2024-09-16] MEDS: levETIRAcetam 1500 mg/100ml 100 ML IV SCH (22:30)
[2024-09-17 03:30] VITALS: BP 153/89; PULSE 88; RESP 17; TEMP 97.9; O2SAT 94
[2024-09-17] MEDS: HYDROcodone-ACET 5/325MG TAB PO PRN (06:18)
[2024-09-17 08:38] VITALS: BP 106/51; PULSE 100; RESP 20; TEMP 98.5; O2SAT 96
[2024-09-17 09:44] LABS: Hematocrit 27.0 % (41.0-53.0); Hemoglobin 9.4 g/dL (13.5-17.5); Mean Corpuscular Hemoglobin 31.0 pg (28.0-32.0); Mean Corpuscular Volume 88.6 fL (80.0-100.0); Nucleated Red Blood Cells % 0.2 %
[2024-09-17 10:01] LABS: Albumin 3.7 g/dL (3.2-4.8); Alkaline Phosphatase 97 U/L (46-116); Anion Gap 9 (5-15); BUN/Creatinine Ratio 5.9 (10.0-20.0); Calcium 9.6 mg/dL (8.7-10.4); Carbon Dioxide 27 mmol/L (20-31); Chloride 106 mmol/L (98-107); Potassium 3.6 mmol/L (3.5-5.1); Sodium 142 mmol/L (136-145); Total Protein 5.9 g/dL (5.7-8.2)
[2024-09-17 10:06] LABS: Alanine Aminotransferase 9 U/L (7-40); Bilirubin, Total 0.3 mg/dL (0.2-1.0); Blood Urea Nitrogen 28 mg/dL (9-23); Glucose 193 mg/dL (74-106)
[2024-09-17 12:47] VITALS: BP 152/87; PULSE 90; RESP 20; TEMP 98.5; O2SAT 97
--- NOTE | 2024-09-17 14:50 | DVHPN2 ---
Subjective I a.m. assuming the patient's care from today onwards who was under the care of the hospitalist team. Detailed sign out obtained. Chart reviewed. Neurology's notes reviewed. This is a follow up on 53-year-old male with a known history of end-stage renal disease on hemodialysis, left eye blindness, hypertension, diabetes mellitus type 2, dyslipidemia, schizophrenia, seizure disorder who initially presented to the hospital but does seasons also complaining off right eye blurry vision/blindness for last three days. Patient was being seen by Neurology and currently has order for high level of care but she is currently pending social some seasonal evaluation. Patient denies any overnight seizures. Changes from previous H/P or p: No Changes Eyes: Vision change Objective Vitals Vital Signs Date Time Temp Pulse Resp B/P (MAP) Pulse Ox O2 Delivery O2 Flow Rate FiO2 09/17/24 12:47 98.5 90 20 152/87 (108) 97 98.5 09/17/24 01:38 Room Air* 0 21 Intake/Output Intake and Output 09/17/24 07:00 Intake Total 225 ml Balance 225 ml Intake Oral 125 ml IV Total 100 ml Exam HEENT left eye blindness right eye has under group table hyperemia, pupils his on 4 mm sluggish infection. Patient stated that he can see my shadow . Neck is supple CVS S1-S2 regular rate and rhythm Respiratory bilaterally clear GI positive bowel sounds soft nondistended nontender no guarding no rigidity Extremities no edema [employer] no motor deficit. Medications Current Medications Medications Dose Ordered Sig/Misty Route Start Time Stop Time Status Last Admin Dose Admin Ondansetron HCl 4 mg Q4HP PRN IV 09/16/24 08:30 Acetaminophen 650 mg Q6HP PRN PO 09/16/24 08:30 09/16/24 08:59 650 MG Diagnostic Test (Pha) 1 strip ACHS 09/16/24 11:30 09/17/24 11:42 1 STRIP Insulin Human Regular ACHS SC 09/16/24 11:30 09/17/24 11:47 4 UNITS Dextrose 50 ml UD PRN IV 09/16/24 08:30 Hydralazine HCl 10 mg Q6HP PRN IV 09/16/24 08:30 Apixaban 2.5 mg BID PO 09/16/24 10:00 09/17/24 10:00 2.5 MG Bumetanide 1 mg DAILY PO 09/16/24 10:00 09/17/24 10:00 1 MG Carvedilol 12.5 mg Q12HR PO 09/16/24 10:00 09/17/24 10:00 12.5 MG Hydralazine HCl 25 mg TID PO 09/16/24 14:00 09/17/24 06:17 25 MG Isosorbide Dinitrate 20 mg TID@0600,1200,1800 PO 09/16/24 12:00 09/17/24 06:16 20 MG Atorvastatin Calcium 40 mg HS PO 09/16/24 22:00 09/16/24 22:05 40 MG Patient Own Medication 1 drop BID LEFTEYE 09/16/24 10:00 Quetiapine Fumarate 50 mg HS PO 09/16/24 22:00 09/16/24 22:05 50 MG Acetaminophen/ Hydrocodone Bitart 1 tab Q4HPRN PRN PO 09/16/24 10:45 09/17/24 11:49 1 TAB Levetiracetam 100 ml @ 400 mls/hr BID IV 09/16/24 22:00 09/17/24 10:00 400 MLS/HR Lorazepam 1 mg Q5MINP PRN IV 09/16/24 22:00 Laboratory Results Laboratory Tests 09/17/24 08:30 Chemistry Test 09/17/24 08:30 Albumin 3.7 g/dL (3.2-4.8) Calcium Level 9.6 mg/dL (8.7-10.4) Total Protein 5.9 g/dL (5.7-8.2) LFT Test 09/17/24 08:30 Alanine Aminotransferase (ALT) 9 U/L (7-40) Alkaline Phosphatase 97 U/L (46-116) Aspartate Amino Transferase (AST) 11 U/L (<34) Total Bilirubin 0.3 mg/dL (0.2-1.0) Urinalysis Test 09/16/24 07:20 Urine Color Light-yellow (Yellow) Urine Clarity Clear (Clear) Urine pH 7.0 (5.0-9.0) Urine Specific [place] 1.018 (1.001-1.035) Urine Protein 3+ (Negative) H Urine Ketones Negative (Negative) Urine Blood Trace /uL (Negative) H Urine Nitrite Negative (Negative) Urine Bilirubin Negative (Negative) Urine Urobilinogen Normal mg/dL (Negative) Urine Leukocyte Esterase Negative /uL (Negative) Urine RBC 1 /hpf (0 - 3) Urine Microscopic WBC 1 /HPF (0-3) Urine Squamous Epithelial Cells None seen /hpf (<5) Urine Bacteria None seen /hpf (None Seen) Urine Glucose 3+ mg/dL (Normal) H Microbiology Microbiology Date/Time Source Procedure Growth Status 09/17/24 03:40 Nose MRSA Screen - Final Complete Assessment/Plan Assessment/Plan 53-year-old male with a known history of end-stage renal disease on hemodialysis, diabetes mellitus type 2, hypertension, dyslipidemia, left eye blindness, schizophrenia, seizure disorder initially was in the hospital but she says and right eye blindness found to have 1. Acute right eye blindness need higher level of care for ophthalmology 2. Breakthrough seizures 3. Epilepsy 4. Diabetes mellitus type 2 5. Hypertension 6. Dyslipidemia 7. End-stage renal disease on hemodialysis 8. Schizophrenia 9. Left eye blindness 10. Recent history of shingles -continue Keppra at current dose -seizure precautions -social services coordinator consultation for high level of care thought Ophthalmology for new onset right eye blindness. -but in his case discussed with the patient who understands verbalized understanding and agreeable to plan. Plan of care discussed has been bedside RN Yudy as well. -keep the that is pretty and airborne droplet isolation Plan discussed with: Patient, Other Date of Service: Sep 17, 2024 Billing Provider: KASIA JUAREZ MD Common Visit Codes: [id number] INP/OBS CARE(MOD) KASIA JUAREZ MD Sep 17, 2024 14:50
[2024-09-17 17:13] VITALS: BP 151/74; PULSE 78; RESP 20; TEMP 98.7; O2SAT 97
--- NOTE | 2024-09-17 19:07 | DVHPN2 ---
Progress Note Date Seen: Sep 17, 2024 Medical Necessity Reason Pt with a Central, PICC or Fol: Yes Subjective Patient reports: No new complaints Objective vital signs Vital Sign Date Time Temp Pulse Resp B/P (MAP) Pulse Ox O2 Delivery O2 Flow Rate FiO2 09/17/24 18:28 151/74 09/17/24 17:13 98.7 78 20 97 98.7 09/17/24 01:38 Room Air* 0 21 Total Intake and Output 09/16/24 09/16/24 09/17/24 15:00 23:00 07:00 Intake Total 100 ml 125 ml Balance 100 ml 125 ml medications Current Medications Medications Dose Ordered Sig/Misty Route Start Time Stop Time Status Last Admin Dose Admin Ondansetron HCl 4 mg Q4HP PRN IV 09/16/24 08:30 Acetaminophen 650 mg Q6HP PRN PO 09/16/24 08:30 09/16/24 08:59 650 MG Diagnostic Test (Pha) 1 strip ACHS 09/16/24 11:30 09/17/24 17:00 1 STRIP Insulin Human Regular ACHS SC 09/16/24 11:30 09/17/24 11:47 4 UNITS Dextrose 50 ml UD PRN IV 09/16/24 08:30 Hydralazine HCl 10 mg Q6HP PRN IV 09/16/24 08:30 Apixaban 2.5 mg BID PO 09/16/24 10:00 09/17/24 10:00 2.5 MG Bumetanide 1 mg DAILY PO 09/16/24 10:00 09/17/24 10:00 1 MG Carvedilol 12.5 mg Q12HR PO 09/16/24 10:00 09/17/24 10:00 12.5 MG Hydralazine HCl 25 mg TID PO 09/16/24 14:00 09/17/24 14:00 25 MG Isosorbide Dinitrate 20 mg TID@0600,1200,1800 PO 09/16/24 12:00 09/17/24 18:28 20 MG Atorvastatin Calcium 40 mg HS PO 09/16/24 22:00 09/16/24 22:05 40 MG Patient Own Medication 1 drop BID LEFTEYE 09/16/24 10:00 Quetiapine Fumarate 50 mg HS PO 09/16/24 22:00 09/16/24 22:05 50 MG Acetaminophen/ Hydrocodone Bitart 1 tab Q4HPRN PRN PO 09/16/24 10:45 09/17/24 11:49 1 TAB Levetiracetam 100 ml @ 400 mls/hr BID IV 09/16/24 22:00 09/17/24 10:00 400 MLS/HR Lorazepam 1 mg Q5MINP PRN IV 09/16/24 22:00 laboratory and microbiology Laboratory Tests 09/17/24 08:30 Test 09/17/24 08:30 Range/Units Serum Glucose 193 H 74-106 mg/dL Microbiology Date/Time Source Procedure Growth Status 09/17/24 03:40 Nose MRSA Screen - Final Complete Problem List/Assessment/Plan Problem List/Assessment/Plan ESRD on hemodialysis Seizures Hypertension AFib Congestive heart failure recs HD thursday Plan discussed with: Patient SHAYY FERNANDES MD Sep 17, 2024 19:07
--- NOTE | 2024-09-17 19:54 | DVHPN2 ---
Progress Note - Dictate Date Seen: Sep 17, 2024 Medical Necessity Reason Pt with a Central, PICC or Fol: Yes Subjective Mr. Goins is a 53 years old left-handed gentleman with a history of hypertension, diabetes, dyslipidemia, congestive heart failure, atrial fibrillation, stroke (not confirmed with him), seizure, schizophrenia, left eye blindness, she came to the hospital on 09/16/2024 with a chief complaint of seizure activity I have seen and examined the patient, I have talked to his nurse and the medical staff, the patient is awake with eyes closed, he actually was oriented x3, but is very difficult to deal with, does not want to do thing for me. He tells me the pain in the right eye persists, the right can see nothing but lights. He can still move the arms and legs Social service input appreciated Urinalysis, 08/28/1910/09/2024: Unremarkable WBC/HB/PLT/MCV, 09/16/24: 8.5/11.3/327/86.9 BUN/CR, 09/16/2024: 57/5.58 HGB A1c, 08/17/2024: 8.1 Ferritin, 08/22/24: 515.2 TG/HDL/LDL/HDL, 07/08/2024: 176/274/188/50 CT head, 09/16/2024: No acute intracranial abnormality vital signs Vital Sign Date Time Temp Pulse Resp B/P (MAP) Pulse Ox O2 Delivery O2 Flow Rate FiO2 09/17/24 18:28 151/74 09/17/24 17:13 98.7 78 20 97 98.7 09/17/24 01:38 Room Air* 0 21 Total Intake and Output 09/16/24 09/16/24 09/17/24 15:00 23:00 07:00 Intake Total 100 ml 125 ml Balance 100 ml 125 ml medications Current Medications Medications Dose Ordered Sig/Misty Route Start Time Stop Time Status Last Admin Dose Admin Ondansetron HCl 4 mg Q4HP PRN IV 09/16/24 08:30 Acetaminophen 650 mg Q6HP PRN PO 09/16/24 08:30 09/16/24 08:59 650 MG Diagnostic Test (Pha) 1 strip ACHS 09/16/24 11:30 09/17/24 17:00 1 STRIP Insulin Human Regular ACHS SC 09/16/24 11:30 09/17/24 11:47 4 UNITS Dextrose 50 ml UD PRN IV 09/16/24 08:30 Hydralazine HCl 10 mg Q6HP PRN IV 09/16/24 08:30 Apixaban 2.5 mg BID PO 09/16/24 10:00 09/17/24 10:00 2.5 MG Bumetanide 1 mg DAILY PO 09/16/24 10:00 09/17/24 10:00 1 MG Carvedilol 12.5 mg Q12HR PO 09/16/24 10:00 09/17/24 10:00 12.5 MG Hydralazine HCl 25 mg TID PO 09/16/24 14:00 09/17/24 14:00 25 MG Isosorbide Dinitrate 20 mg TID@0600,1200,1800 PO 09/16/24 12:00 09/17/24 18:28 20 MG Atorvastatin Calcium 40 mg HS PO 09/16/24 22:00 09/16/24 22:05 40 MG Patient Own Medication 1 drop BID LEFTEYE 09/16/24 10:00 Quetiapine Fumarate 50 mg HS PO 09/16/24 22:00 09/16/24 22:05 50 MG Acetaminophen/ Hydrocodone Bitart 1 tab Q4HPRN PRN PO 09/16/24 10:45 09/17/24 11:49 1 TAB Levetiracetam 100 ml @ 400 mls/hr BID IV 09/16/24 22:00 09/17/24 10:00 400 MLS/HR Lorazepam 1 mg Q5MINP PRN IV 09/16/24 22:00 objective General: the patient is well developed and nourished. No acute distress. MENTAL STATUS: Subjective SPEECH, LANGUAGE, HIGHER CORTICAL FUNCTION: no aphasia or dysathria. CRANIAL NERVES: Left pupil is bigger and nonreactive, left pupil is reactive. He can move the eyes. Facial sensation ok in all three divisions bilaterally. Mandibular strength intact. Facial muscles symmetrical and strength intact. SENSATION: Sensation to touch and pinprick feels fine MOTOR: Normal tone in the upper and lower extremity. Normal muscle bulk. No fasciculations. No abnormal movements or posturing. He moves the arms and legs with no problem REFLEXES: Deep tendon reflexes are symmetrical. No pathological reflexes. (inadequate examined) CEREBELLAR/COORDINATION: Deferred GAIT/STATION: deferred. laboratory and microbiology Laboratory Tests 09/17/24 08:30 Test 09/17/24 08:30 Range/Units Serum Glucose 193 H 74-106 mg/dL Problem List Seizure disorder with seizure breakthrough Acute right eye pain, blindness Reports stroke, not confirmed with the patient Assessment/Plan Monitoring Supportive treatment Telemetry Keppra 1500 mg b.i.d. Ativan for seizure breakthrough Transfer higher level care, need ophthalmology Re: acute right eye blindness Prognosis: Poor This medical document was created using an electronic medical record system with [employer] dictation system. Although this document has been carefully reviewed, there may still be some phonetic and typographical errors. These areas are purely typographical due to imperfections of the software programs, and do not reflect any compromise in the patient's medical care. Prognosis poor Plan discussed with: Other KATHY HOYT MD Sep 17, 2024 19:54
[2024-09-17 21:00] VITALS: BP 156/89; PULSE 86; RESP 16; TEMP 97.8; O2SAT 97
[2024-09-18 05:00] VITALS: BP 140/81; PULSE 83; RESP 16; TEMP 97.3; O2SAT 97
[2024-09-18 08:00] VITALS: PULSE 82; RESP 20; O2SAT 99
--- NOTE | 2024-09-18 11:13 | DVHPN2 ---
Progress Note Date Seen: Sep 18, 2024 Medical Necessity Reason Pt with a Central, PICC or Fol: Yes Subjective Patient reports: No new complaints Objective vital signs Vital Sign Date Time Temp Pulse Resp B/P (MAP) Pulse Ox O2 Delivery O2 Flow Rate FiO2 09/18/24 05:18 140/81 09/18/24 05:00 97.3 83 16 97 97.3 09/17/24 20:00 Room Air* 0 21 Total Intake and Output 09/17/24 09/17/24 09/18/24 15:00 23:00 07:00 Intake Total 380 ml 300 ml Output Total 500 ml Balance -120 ml 300 ml medications Current Medications Medications Dose Ordered Sig/Misty Route Start Time Stop Time Status Last Admin Dose Admin Ondansetron HCl 4 mg Q4HP PRN IV 09/16/24 08:30 Acetaminophen 650 mg Q6HP PRN PO 09/16/24 08:30 09/16/24 08:59 650 MG Diagnostic Test (Pha) 1 strip ACHS 09/16/24 11:30 09/18/24 06:44 1 STRIP Insulin Human Regular ACHS SC 09/16/24 11:30 09/18/24 06:37 4 UNITS Dextrose 50 ml UD PRN IV 09/16/24 08:30 Hydralazine HCl 10 mg Q6HP PRN IV 09/16/24 08:30 Apixaban 2.5 mg BID PO 09/16/24 10:00 09/18/24 10:47 2.5 MG Bumetanide 1 mg DAILY PO 09/16/24 10:00 09/17/24 10:00 1 MG Carvedilol 12.5 mg Q12HR PO 09/16/24 10:00 09/17/24 22:49 12.5 MG Hydralazine HCl 25 mg TID PO 09/16/24 14:00 09/18/24 05:17 25 MG Isosorbide Dinitrate 20 mg TID@0600,1200,1800 PO 09/16/24 12:00 09/18/24 05:18 20 MG Atorvastatin Calcium 40 mg HS PO 09/16/24 22:00 09/17/24 22:48 40 MG Patient Own Medication 1 drop BID LEFTEYE 09/16/24 10:00 Quetiapine Fumarate 50 mg HS PO 09/16/24 22:00 09/17/24 22:48 50 MG Acetaminophen/ Hydrocodone Bitart 1 tab Q4HPRN PRN PO 09/16/24 10:45 09/18/24 10:48 1 TAB Levetiracetam 100 ml @ 400 mls/hr BID IV 09/16/24 22:00 09/18/24 10:45 400 MLS/HR Lorazepam 1 mg Q5MINP PRN IV 09/16/24 22:00 laboratory and microbiology Laboratory Tests 09/17/24 08:30 Test 09/17/24 08:30 Range/Units Serum Glucose 193 H 74-106 mg/dL Microbiology Date/Time Source Procedure Growth Status 09/17/24 03:40 Nose MRSA Screen - Final Complete Problem List/Assessment/Plan Problem List/Assessment/Plan ESRD on hemodialysis Seizures Hypertension AFib Congestive heart failure recs HD thursday neuro following Plan discussed with: Patient SHAYY FERNANDES MD Sep 18, 2024 11:13
[2024-09-18 13:11] VITALS: BP 141/72; PULSE 86; RESP 20; TEMP 98.5; O2SAT 95
--- NOTE | 2024-09-18 14:39 | DVHPN2 ---
Subjective Chart reviewed. Neurology's notes reviewed. This is a follow up on 53-year-old male with a known history of end-stage renal disease on hemodialysis, left eye blindness, hypertension, diabetes mellitus type 2, dyslipidemia, schizophrenia, seizure disorder who initially presented to the hospital but does seasons also complaining off right eye blurry vision/blindness for last three days. Patient was being seen by Neurology and currently has order for higher level of care , social director has been working on arranging higher level of care. Changes from previous H/P or p: No Changes Eyes: Vision change Objective Vitals Vital Signs Date Time Temp Pulse Resp B/P (MAP) Pulse Ox O2 Delivery O2 Flow Rate FiO2 09/18/24 13:11 98.5 86 20 141/72 (95) 95 98.5 09/17/24 20:00 Room Air* 0 21 Intake/Output Intake and Output 09/18/24 07:00 Intake Total 680 ml Output Total 500 ml Balance 180 ml Intake Oral 680 ml Output Urine Total 500 ml # Voids 2 # Bowel Movements 1 Exam HEENT left eye blindness right eye has under group table hyperemia, pupils his on 4 mm sluggish infection. Patient stated that he can see my shadow . 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 Medications Current Medications Medications Dose Ordered Sig/Misty Route Start Time Stop Time Status Last Admin Dose Admin Ondansetron HCl 4 mg Q4HP PRN IV 09/16/24 08:30 Acetaminophen 650 mg Q6HP PRN PO 09/16/24 08:30 09/16/24 08:59 650 MG Diagnostic Test (Pha) 1 strip ACHS 09/16/24 11:30 09/18/24 11:30 1 STRIP Insulin Human Regular ACHS SC 09/16/24 11:30 09/18/24 06:37 4 UNITS Dextrose 50 ml UD PRN IV 09/16/24 08:30 Hydralazine HCl 10 mg Q6HP PRN IV 09/16/24 08:30 Apixaban 2.5 mg BID PO 09/16/24 10:00 09/18/24 10:47 2.5 MG Bumetanide 1 mg DAILY PO 09/16/24 10:00 09/17/24 10:00 1 MG Carvedilol 12.5 mg Q12HR PO 09/16/24 10:00 09/17/24 22:49 12.5 MG Hydralazine HCl 25 mg TID PO 09/16/24 14:00 09/18/24 05:17 25 MG Isosorbide Dinitrate 20 mg TID@0600,1200,1800 PO 09/16/24 12:00 09/18/24 05:18 20 MG Atorvastatin Calcium 40 mg HS PO 09/16/24 22:00 09/17/24 22:48 40 MG Patient Own Medication 1 drop BID LEFTEYE 09/16/24 10:00 Quetiapine Fumarate 50 mg HS PO 09/16/24 22:00 09/17/24 22:48 50 MG Acetaminophen/ Hydrocodone Bitart 1 tab Q4HPRN PRN PO 09/16/24 10:45 09/18/24 10:48 1 TAB Levetiracetam 100 ml @ 400 mls/hr BID IV 09/16/24 22:00 09/18/24 10:45 400 MLS/HR Lorazepam 1 mg Q5MINP PRN IV 09/16/24 22:00 Laboratory Results Laboratory Tests 09/17/24 08:30 Urinalysis Test 09/16/24 07:20 Urine Color Light-yellow (Yellow) Urine Clarity Clear (Clear) Urine pH 7.0 (5.0-9.0) Urine Specific [place] 1.018 (1.001-1.035) Urine Protein 3+ (Negative) H Urine Ketones Negative (Negative) Urine Blood Trace /uL (Negative) H Urine Nitrite Negative (Negative) Urine Bilirubin Negative (Negative) Urine Urobilinogen Normal mg/dL (Negative) Urine Leukocyte Esterase Negative /uL (Negative) Urine RBC 1 /hpf (0 - 3) Urine Microscopic WBC 1 /HPF (0-3) Urine Squamous Epithelial Cells None seen /hpf (<5) Urine Bacteria None seen /hpf (None Seen) Urine Glucose 3+ mg/dL (Normal) H Microbiology Microbiology Date/Time Source Procedure Growth Status 09/17/24 03:40 Nose MRSA Screen - Final Complete Assessment/Plan Assessment/Plan 53-year-old male with a known history of end-stage renal disease on hemodialysis, diabetes mellitus type 2, hypertension, dyslipidemia, left eye blindness, schizophrenia, seizure disorder initially was in the hospital but she says and right eye blindness found to have 1. Acute right eye blindness need higher level of care for ophthalmology 2. Breakthrough seizures 3. Epilepsy 4. Diabetes mellitus type 2 5. Hypertension 6. Dyslipidemia 7. End-stage renal disease on hemodialysis 8. Schizophrenia 9. Left eye blindness 10. Recent history of shingles -continue Keppra at current dose -seizure precautions -social director consultation for higher level of care thought Ophthalmology for new onset right eye blindness. -but in his case discussed with the patient who understands verbalized understanding and agreeable to plan. Plan of care discussed has been bedside RN Yudy as well. -keep the that is pretty and airborne droplet isolation Plan discussed with: Patient My Orders Orders - KASIA JUAREZ MD Procedure Category Date Status Time * Infectious [place]- CONS 09/17/24 Transmitted [facility] 14:35 Date of Service: Sep 18, 2024 Billing Provider: KASIA JUAREZ MD Common Visit Codes: [id number] INP/OBS CARE(MOD) KASIA JUAREZ MD Sep 18, 2024 14:39
[2024-09-18 21:00] VITALS: PULSE 81; RESP 18; O2SAT 97
[2024-09-19 05:00] VITALS: BP 165/94; PULSE 78; RESP 16; O2SAT 96
[2024-09-19 08:00] VITALS: PULSE 82
[2024-09-19 08:57] VITALS: BP 139/76; PULSE 82; RESP 16; TEMP 98.5; O2SAT 98
[2024-09-19 13:00] VITALS: BP 159/89; PULSE 94; RESP 17; TEMP 98.5; O2SAT 99
--- NOTE | 2024-09-19 13:38 | DVHPN2 ---
Progress Note Date Seen: Sep 19, 2024 Medical Necessity Reason Pt with a Central, PICC or Fol: Yes Subjective Patient reports: Feels better Objective vital signs Vital Sign Date Time Temp Pulse Resp B/P (MAP) Pulse Ox O2 Delivery O2 Flow Rate FiO2 09/19/24 13:00 98.5 94 17 159/89 (112) 99 98.5 09/19/24 08:00 Room Air* 0 21 Total Intake and Output 09/18/24 09/18/24 09/19/24 15:00 23:00 07:00 Intake Total 585 ml 450 ml Output Total 1100 ml 600 ml Balance -515 ml -150 ml medications Current Medications Medications Dose Ordered Sig/Misty Route Start Time Stop Time Status Last Admin Dose Admin Ondansetron HCl 4 mg Q4HP PRN IV 09/16/24 08:30 Acetaminophen 650 mg Q6HP PRN PO 09/16/24 08:30 09/16/24 08:59 650 MG Diagnostic Test (Pha) 1 strip ACHS 09/16/24 11:30 09/19/24 11:30 1 STRIP Insulin Human Regular ACHS SC 09/16/24 11:30 09/19/24 12:08 3 UNITS Dextrose 50 ml UD PRN IV 09/16/24 08:30 Hydralazine HCl 10 mg Q6HP PRN IV 09/16/24 08:30 Apixaban 2.5 mg BID PO 09/16/24 10:00 09/19/24 09:56 2.5 MG Bumetanide 1 mg DAILY PO 09/16/24 10:00 09/17/24 10:00 1 MG Carvedilol 12.5 mg Q12HR PO 09/16/24 10:00 09/18/24 22:44 12.5 MG Hydralazine HCl 25 mg TID PO 09/16/24 14:00 09/19/24 05:46 25 MG Isosorbide Dinitrate 20 mg TID@0600,1200,1800 PO 09/16/24 12:00 09/19/24 05:46 20 MG Atorvastatin Calcium 40 mg HS PO 09/16/24 22:00 09/18/24 22:26 40 MG Patient Own Medication 1 drop BID LEFTEYE 09/16/24 10:00 Quetiapine Fumarate 50 mg HS PO 09/16/24 22:00 09/18/24 22:26 50 MG Lorazepam 1 mg Q5MINP PRN IV 09/16/24 22:00 Levetiracetam 100 ml @ 400 mls/hr Q12H IV 09/19/24 14:00 Acetaminophen/ Hydrocodone Bitart 1 tab Q4HP PRN PO 09/19/24 13:15 UNV Examination: GENERAL:Normal, CVS:Normal, SKIN:Normal laboratory and microbiology Laboratory Tests 09/17/24 08:30 Test 09/17/24 08:30 Range/Units Serum Glucose 193 H 74-106 mg/dL Microbiology Date/Time Source Procedure Growth Status 09/17/24 03:40 Nose MRSA Screen - Final Complete Problem List/Assessment/Plan Problem List/Assessment/Plan ESRD on hemodialysis Seizures Hypertension AFib Congestive heart failure recs HD today neuro following Plan discussed with: Patient Total Time (mins): 35 SHAHID GARSIA MD Sep 19, 2024 13:38
[2024-09-19] MEDS: levETIRAcetam 1500 mg/100ml 100 ML IV SCH (14:12)
[2024-09-19] MEDS: HYDROcodone-ACET 10/325MG TAB PO PRN (14:13)
--- NOTE | 2024-09-19 14:44 | DVHPN2 ---
Subjective This is a follow up on 53-year-old male with a known history of end-stage renal disease on hemodialysis, left eye blindness, hypertension, diabetes mellitus type 2, dyslipidemia, schizophrenia, seizure disorder who initially presented to the hospital but does seasons also complaining off right eye blurry vision/blindness for last three days. Patient was being seen by Neurology and currently has order for higher level of care , social service liaison has been working on arranging higher level of care. Patient is currently getting hemodialysis. Changes from previous H/P or p: No Changes Eyes: Vision change Objective Vitals Vital Signs Date Time Temp Pulse Resp B/P (MAP) Pulse Ox O2 Delivery O2 Flow Rate FiO2 09/19/24 14:19 119/64 09/19/24 13:00 98.5 94 17 99 98.5 09/19/24 08:00 Room Air* 0 21 Intake/Output Intake and Output 09/19/24 07:00 Intake Total 1035 ml Output Total 1700 ml Balance -665 ml Intake Oral 1035 ml Output Urine Total 1700 ml Exam HEENT left eye blindness right eye has under group table hyperemia, pupils his on 4 mm sluggish infection. Patient stated that he can see my shadow . Neck is supple CVS S1-S2 regular rate and rhythm Respiratory bilaterally clear GI positive bowel sounds soft nondistended nontender no guarding no rigidity Extremities no edema AREA DEVELOPMENT CONSULTANT no motor deficit. Medications Current Medications Medications Dose Ordered Sig/Misty Route Start Time Stop Time Status Last Admin Dose Admin Ondansetron HCl 4 mg Q4HP PRN IV 09/16/24 08:30 Acetaminophen 650 mg Q6HP PRN PO 09/16/24 08:30 09/16/24 08:59 650 MG Diagnostic Test (Pha) 1 strip ACHS 09/16/24 11:30 09/19/24 11:30 1 STRIP Insulin Human Regular ACHS SC 09/16/24 11:30 09/19/24 12:08 3 UNITS Dextrose 50 ml UD PRN IV 09/16/24 08:30 Hydralazine HCl 10 mg Q6HP PRN IV 09/16/24 08:30 Apixaban 2.5 mg BID PO 09/16/24 10:00 09/19/24 09:56 2.5 MG Bumetanide 1 mg DAILY PO 09/16/24 10:00 09/17/24 10:00 1 MG Carvedilol 12.5 mg Q12HR PO 09/16/24 10:00 09/18/24 22:44 12.5 MG Hydralazine HCl 25 mg TID PO 09/16/24 14:00 09/19/24 14:19 25 MG Isosorbide Dinitrate 20 mg TID@0600,1200,1800 PO 09/16/24 12:00 09/19/24 05:46 20 MG Atorvastatin Calcium 40 mg HS PO 09/16/24 22:00 09/18/24 22:26 40 MG Patient Own Medication 1 drop BID LEFTEYE 09/16/24 10:00 Quetiapine Fumarate 50 mg HS PO 09/16/24 22:00 09/18/24 22:26 50 MG Lorazepam 1 mg Q5MINP PRN IV 09/16/24 22:00 Levetiracetam 100 ml @ 400 mls/hr Q12H IV 09/19/24 14:00 09/19/24 14:12 400 MLS/HR Acetaminophen/ Hydrocodone Bitart 1 tab Q4HP PRN PO 09/19/24 13:15 09/19/24 14:13 1 TAB Laboratory Results Laboratory Tests 09/17/24 08:30 Urinalysis Test 09/16/24 07:20 Urine Color Light-yellow (Yellow) Urine Clarity Clear (Clear) Urine pH 7.0 (5.0-9.0) Urine Specific [place] 1.018 (1.001-1.035) Urine Protein 3+ (Negative) H Urine Ketones Negative (Negative) Urine Blood Trace /uL (Negative) H Urine Nitrite Negative (Negative) Urine Bilirubin Negative (Negative) Urine Urobilinogen Normal mg/dL (Negative) Urine Leukocyte Esterase Negative /uL (Negative) Urine RBC 1 /hpf (0 - 3) Urine Microscopic WBC 1 /HPF (0-3) Urine Squamous Epithelial Cells None seen /hpf (<5) Urine Bacteria None seen /hpf (None Seen) Urine Glucose 3+ mg/dL (Normal) H Microbiology Microbiology Date/Time Source Procedure Growth Status 09/17/24 03:40 Nose MRSA Screen - Final Complete Assessment/Plan Assessment/Plan 53-year-old male with a known history of end-stage renal disease on hemodialysis, diabetes mellitus type 2, hypertension, dyslipidemia, left eye blindness, schizophrenia, seizure disorder initially was in the hospital but she says and right eye blindness found to have 1. Acute right eye blindness need higher level of care for ophthalmology 2. Breakthrough seizures 3. Epilepsy 4. Diabetes mellitus type 2 5. Hypertension 6. Dyslipidemia 7. End-stage renal disease on hemodialysis 8. Schizophrenia 9. Left eye blindness 10. Recent history of shingles -continue Keppra at current dose -seizure precautions -vp digital marketing social media and crm consultation for higher level of care thought Ophthalmology for new onset right eye blindness. -but in his case discussed with the patient who understands verbalized understanding and agreeable to plan. Plan of care discussed has been bedside RN Yudy as well. -keep the that is pretty and airborne droplet isolation Plan discussed with: Patient My Orders Orders - KASIA JUAREZ MD Procedure Category Date Status Time Hydrocodone-Acet PHA 09/19/24 In Process 10/325mg Tab ([place] 13:15 Date of Service: Sep 19, 2024 Billing Provider: KASIA JUAREZ MD Common Visit Codes: [id number] INP/OBS CARE(MOD) KASIA JUAREZ MD Sep 19, 2024 14:44
[2024-09-19 17:00] VITALS: BP 156/91; PULSE 89; RESP 16; TEMP 98.4; O2SAT 96
[2024-09-19 21:00] VITALS: BP 137/90; PULSE 86; RESP 16; TEMP 97.6; O2SAT 94
--- NOTE | 2024-09-19 23:04 | DVHPN2 ---
Progress Note - Dictate Date Seen: Sep 19, 2024 Medical Necessity Reason Pt with a Central, PICC or Fol: Yes Subjective Mr. Goins is a 53 years old left-handed gentleman with a history of hypertension, diabetes, dyslipidemia, congestive heart failure, atrial fibrillation, stroke (not confirmed with him), seizure, schizophrenia, left eye blindness, she came to the hospital on 09/16/2024 with a chief complaint of seizure activity I have seen and examined the patient, I have talked to his nurse and the medical staff, the patient is awake, he is more cooperative today, he tells me the pain in the right eye gone, the right eye is able to see a little bit more I have talked to ophthalmology attending from the [facility], the patient was accepted, transfer pending bed availability Urinalysis, 08/28/1910/09/2024: Unremarkable WBC/HB/PLT/MCV, 09/16/24: 8.5/11.3/327/86.9 BUN/CR, 09/16/2024: 57/5.58 HGB A1c, 08/17/2024: 8.1 Ferritin, 08/22/24: 515.2 TG/HDL/LDL/HDL, 07/08/2024: 176/274/188/50 CT head, 09/16/2024: No acute intracranial abnormality vital signs Vital Sign Date Time Temp Pulse Resp B/P (MAP) Pulse Ox O2 Delivery O2 Flow Rate FiO2 09/19/24 22:26 86 137/90 09/19/24 21:00 97.6 16 94 97.6 09/19/24 20:00 Room Air* 0 21 Total Intake and Output 09/18/24 09/18/24 09/19/24 15:00 23:00 07:00 Intake Total 685 ml 450 ml Output Total 1100 ml 600 ml Balance -415 ml -150 ml medications Current Medications Medications Dose Ordered Sig/Misty Route Start Time Stop Time Status Last Admin Dose Admin Ondansetron HCl 4 mg Q4HP PRN IV 09/16/24 08:30 Acetaminophen 650 mg Q6HP PRN PO 09/16/24 08:30 09/16/24 08:59 650 MG Diagnostic Test (Pha) 1 strip ACHS 09/16/24 11:30 09/19/24 22:26 1 STRIP Insulin Human Regular ACHS SC 09/16/24 11:30 09/19/24 22:30 2 UNITS Dextrose 50 ml UD PRN IV 09/16/24 08:30 Hydralazine HCl 10 mg Q6HP PRN IV 09/16/24 08:30 Apixaban 2.5 mg BID PO 09/16/24 10:00 09/19/24 22:23 2.5 MG Bumetanide 1 mg DAILY PO 09/16/24 10:00 09/17/24 10:00 1 MG Carvedilol 12.5 mg Q12HR PO 09/16/24 10:00 09/19/24 22:26 12.5 MG Hydralazine HCl 25 mg TID PO 09/16/24 14:00 09/19/24 22:25 25 MG Isosorbide Dinitrate 20 mg TID@0600,1200,1800 PO 09/16/24 12:00 09/19/24 18:11 20 MG Atorvastatin Calcium 40 mg HS PO 09/16/24 22:00 09/19/24 22:23 40 MG Patient Own Medication 1 drop BID LEFTEYE 09/16/24 10:00 Quetiapine Fumarate 50 mg HS PO 09/16/24 22:00 09/19/24 22:23 50 MG Lorazepam 1 mg Q5MINP PRN IV 09/16/24 22:00 Levetiracetam 100 ml @ 400 mls/hr Q12H IV 09/19/24 14:00 09/19/24 14:12 400 MLS/HR Acetaminophen/ Hydrocodone Bitart 1 tab Q4HP PRN PO 09/19/24 13:15 09/19/24 18:25 1 TAB objective General: the patient is well developed and nourished. No acute distress. MENTAL STATUS: Subjective SPEECH, LANGUAGE, HIGHER CORTICAL FUNCTION: no aphasia or dysathria. CRANIAL NERVES: Left pupil is bigger and nonreactive, left pupil is reactive. He can move the eyes. Facial sensation ok in all three divisions bilaterally. Mandibular strength intact. Facial muscles symmetrical and strength intact. SENSATION: Sensation to touch and pinprick feels fine MOTOR: Normal tone in the upper and lower extremity. Normal muscle bulk. No fasciculations. No abnormal movements or posturing. He moves the arms and legs with no problem REFLEXES: Deep tendon reflexes are symmetrical. No pathological reflexes. (inadequate examined) CEREBELLAR/COORDINATION: Deferred GAIT/STATION: deferred. laboratory and microbiology Laboratory Tests 09/17/24 08:30 Test 09/17/24 08:30 Range/Units Serum Glucose 193 H 74-106 mg/dL Problem List Seizure disorder with seizure breakthrough Acute right eye pain, blindness Reports stroke, not confirmed with the patient Assessment/Plan Monitoring Supportive treatment Telemetry Keppra 1500 mg b.i.d. Ativan for seizure breakthrough Transfer higher level care, need ophthalmology Re: acute right eye blindness This medical document was created using an electronic medical record system with [employer] dictation system. Although this document has been carefully reviewed, there may still be some phonetic and typographical errors. These areas are purely typographical due to imperfections of the software programs, and do not reflect any compromise in the patient's medical care. Prognosis poor Plan discussed with: Patient, Other KATHY HOYT MD Sep 19, 2024 23:04
[2024-09-20] VITALS (7 sets, daily range): BP systolic 133–164; BP diastolic 78–89; PULSE 73–78; RESP 18–20; TEMP 98–98.8; O2SAT 96–97
--- NOTE | 2024-09-20 09:55 | DVHPN2 ---
Progress Note Date Seen: Sep 20, 2024 Medical Necessity Reason Pt with a Central, PICC or Fol: Yes Subjective Patient reports: No new complaints Review of Systems: HEENT:Abnormal Objective vital signs Vital Sign Date Time Temp Pulse Resp B/P (MAP) Pulse Ox O2 Delivery O2 Flow Rate FiO2 09/20/24 05:54 145/85 09/20/24 05:00 98.1 77 18 97 98.1 09/19/24 20:00 Room Air* 0 21 Total Intake and Output 09/19/24 09/19/24 09/20/24 15:00 23:00 07:00 Intake Total 900 ml 1000 ml Output Total 150 ml 360 ml Balance 750 ml 640 ml medications Current Medications Medications Dose Ordered Sig/Misty Route Start Time Stop Time Status Last Admin Dose Admin Ondansetron HCl 4 mg Q4HP PRN IV 09/16/24 08:30 Acetaminophen 650 mg Q6HP PRN PO 09/16/24 08:30 09/16/24 08:59 650 MG Diagnostic Test (Pha) 1 strip ACHS 09/16/24 11:30 09/20/24 05:55 1 STRIP Insulin Human Regular ACHS SC 09/16/24 11:30 09/19/24 22:30 2 UNITS Dextrose 50 ml UD PRN IV 09/16/24 08:30 Hydralazine HCl 10 mg Q6HP PRN IV 09/16/24 08:30 Apixaban 2.5 mg BID PO 09/16/24 10:00 09/19/24 22:23 2.5 MG Bumetanide 1 mg DAILY PO 09/16/24 10:00 09/17/24 10:00 1 MG Carvedilol 12.5 mg Q12HR PO 09/16/24 10:00 09/19/24 22:26 12.5 MG Hydralazine HCl 25 mg TID PO 09/16/24 14:00 09/20/24 05:54 25 MG Isosorbide Dinitrate 20 mg TID@0600,1200,1800 PO 09/16/24 12:00 09/20/24 05:54 20 MG Atorvastatin Calcium 40 mg HS PO 09/16/24 22:00 09/19/24 22:23 40 MG Patient Own Medication 1 drop BID LEFTEYE 09/16/24 10:00 Quetiapine Fumarate 50 mg HS PO 09/16/24 22:00 09/19/24 22:23 50 MG Lorazepam 1 mg Q5MINP PRN IV 09/16/24 22:00 Levetiracetam 100 ml @ 400 mls/hr Q12H IV 09/19/24 14:00 09/20/24 02:00 400 MLS/HR Acetaminophen/ Hydrocodone Bitart 1 tab Q4HP PRN PO 09/19/24 13:15 09/19/24 18:25 1 TAB Examination: GENERAL:Normal, HEENT:Abnormal, CVS:Normal laboratory and microbiology Laboratory Tests 09/17/24 08:30 Test 09/17/24 08:30 Range/Units Serum Glucose 193 H 74-106 mg/dL Microbiology Date/Time Source Procedure Growth Status 09/17/24 03:40 Nose MRSA Screen - Final Complete Problem List/Assessment/Plan Problem List/Assessment/Plan ESRD on hemodialysis Seizures Hypertension AFib Congestive heart failure blindness recs HD patient refused today neuro following, rec HLOC for ophthalmology eval and management Plan discussed with: Patient Total Time (mins): 35 SHAHID GARSIA MD Sep 20, 2024 09:55
--- NOTE | 2024-09-20 13:27 | DVHPN2 ---
Subjective This is a follow up on 53-year-old male with a known history of end-stage renal disease on hemodialysis, left eye blindness, hypertension, diabetes mellitus type 2, dyslipidemia, schizophrenia, seizure disorder who initially presented to the hospital complaining off right eye blurry vision/blindness for last three days. Patient was being seen by Neurology and currently has order for higher level of care , social media marketer has been working on arranging higher level of care. Patient was stated that he can see my showed 0 but he actually can not see me from the right eye. Chronic left eye blindness previous. Changes from previous H/P or p: No Changes Eyes: Vision change Objective Vitals Vital Signs Date Time Temp Pulse Resp B/P (MAP) Pulse Ox O2 Delivery O2 Flow Rate FiO2 09/20/24 11:17 164/78 09/20/24 11:11 78 09/20/24 09:00 98.8 20 96 98.8 09/19/24 20:00 Room Air* 0 21 Intake/Output Intake and Output 09/20/24 07:00 Intake Total 1900 ml Output Total 510 ml Balance 1390 ml Intake Oral 1600 ml IV Total 200 ml Other 100 ml Output Urine Total 510 ml Exam HEENT left eye blindness right eye has under group table hyperemia, pupils his on 4 mm sluggish infection. Patient stated that he can see my shadow . 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 Medications Current Medications Medications Dose Ordered Sig/Misty Route Start Time Stop Time Status Last Admin Dose Admin Ondansetron HCl 4 mg Q4HP PRN IV 09/16/24 08:30 Acetaminophen 650 mg Q6HP PRN PO 09/16/24 08:30 09/16/24 08:59 650 MG Diagnostic Test (Pha) 1 strip ACHS 09/16/24 11:30 09/20/24 11:30 1 STRIP Insulin Human Regular ACHS SC 09/16/24 11:30 09/20/24 12:13 2 UNITS Dextrose 50 ml UD PRN IV 09/16/24 08:30 Hydralazine HCl 10 mg Q6HP PRN IV 09/16/24 08:30 Apixaban 2.5 mg BID PO 09/16/24 10:00 09/20/24 11:12 2.5 MG Bumetanide 1 mg DAILY PO 09/16/24 10:00 09/20/24 11:11 1 MG Carvedilol 12.5 mg Q12HR PO 09/16/24 10:00 09/20/24 11:11 12.5 MG Hydralazine HCl 25 mg TID PO 09/16/24 14:00 09/20/24 05:54 25 MG Isosorbide Dinitrate 20 mg TID@0600,1200,1800 PO 09/16/24 12:00 09/20/24 11:17 20 MG Atorvastatin Calcium 40 mg HS PO 09/16/24 22:00 09/19/24 22:23 40 MG Patient Own Medication 1 drop BID LEFTEYE 09/16/24 10:00 Quetiapine Fumarate 50 mg HS PO 09/16/24 22:00 09/19/24 22:23 50 MG Lorazepam 1 mg Q5MINP PRN IV 09/16/24 22:00 Levetiracetam 100 ml @ 400 mls/hr Q12H IV 09/19/24 14:00 09/20/24 02:00 400 MLS/HR Acetaminophen/ Hydrocodone Bitart 1 tab Q4HP PRN PO 09/19/24 13:15 09/20/24 11:18 1 TAB Laboratory Results Laboratory Tests 09/17/24 08:30 Urinalysis Test 09/16/24 07:20 Urine Color Light-yellow (Yellow) Urine Clarity Clear (Clear) Urine pH 7.0 (5.0-9.0) Urine Specific [place] 1.018 (1.001-1.035) Urine Protein 3+ (Negative) H Urine Ketones Negative (Negative) Urine Blood Trace /uL (Negative) H Urine Nitrite Negative (Negative) Urine Bilirubin Negative (Negative) Urine Urobilinogen Normal mg/dL (Negative) Urine Leukocyte Esterase Negative /uL (Negative) Urine RBC 1 /hpf (0 - 3) Urine Microscopic WBC 1 /HPF (0-3) Urine Squamous Epithelial Cells None seen /hpf (<5) Urine Bacteria None seen /hpf (None Seen) Urine Glucose 3+ mg/dL (Normal) H Microbiology Microbiology Date/Time Source Procedure Growth Status 09/17/24 03:40 Nose MRSA Screen - Final Complete Assessment/Plan Assessment/Plan 53-year-old male with a known history of end-stage renal disease on hemodialysis, diabetes mellitus type 2, hypertension, dyslipidemia, left eye blindness, schizophrenia, seizure disorder initially was in the hospital but she says and right eye blindness found to have 1. Acute right eye blindness need higher level of care for ophthalmology 2. Breakthrough seizures currently on Keppra 3. Epilepsy 4. Diabetes mellitus type 2 5. Hypertension 6. Dyslipidemia 7. End-stage renal disease on hemodialysis 8. Schizophrenia 9. Left eye blindness 10. Recent history of shingles -continue Keppra at current dose -seizure precautions -secondary social studies teacher consultation for higher level of care thought Ophthalmology for new onset right eye blindness. -plan of care discussed with the patient who understands verbalized understanding and agreeable to plan. Plan of care discussed has been bedside RN as well. -patient is currently on isolation for recent history of shingles. Plan discussed with: Patient, Other My Orders Orders - KASIA JUAREZ MD Procedure Category Date Status Time Consistent DIET 09/19/24 Transmitted Carb(Ccho)Diabetes Dinner Basic Metabolic Panel LAB 09/21/24 Verified 06:00 Complete Blood Count LAB 09/21/24 Verified 06:00 Magnesium LAB 09/21/24 Verified 06:00 Date of Service: Sep 20, 2024 Billing Provider: KASIA JUAREZ MD Common Visit Codes: [id number] INP/OBS CARE(MOD) KASIA JUAREZ MD Sep 20, 2024 13:27
[2024-09-20] MEDS: MORPHINE SULFATE INJ 2 MG/ml SYRG IV PRN (15:27)
[2024-09-20] MEDS: ONDANSETRON HCL 4 MG/2 ML VIAL IV PRN (15:37)
--- NOTE | 2024-09-20 15:45 | DVHPN2 ---
Progress Note - Dictate Date Seen: Sep 20, 2024 Medical Necessity Reason Pt with a Central, PICC or Fol: Yes Subjective Mr. Goins is a 53 years old left-handed gentleman with a history of hypertension, diabetes, dyslipidemia, congestive heart failure, atrial fibrillation, stroke (not confirmed with him), seizure, schizophrenia, left eye blindness, she came to the hospital on 09/16/2024 with a chief complaint of seizure activity I have seen and examined the patient, I have talked to his nurse, he is awake, he talks more, he also asked social questions. He has no pain in the right eye, and he can see something from the right eye now No seizure Urinalysis, 08/28/1910/09/2024: Unremarkable WBC/HB/PLT/MCV, 09/16/24: 8.5/11.3/327/86.9 BUN/CR, 09/16/2024: 57/5.58 HGB A1c, 08/17/2024: 8.1 Ferritin, 08/22/24: 515.2 TG/HDL/LDL/HDL, 07/08/2024: 176/274/188/50 CT head, 09/16/2024: No acute intracranial abnormality vital signs Vital Sign Date Time Temp Pulse Resp B/P (MAP) Pulse Ox O2 Delivery O2 Flow Rate FiO2 09/20/24 15:27 76 18 158/82 09/20/24 13:00 98.0 96 98.0 09/19/24 20:00 Room Air* 0 21 Total Intake and Output 09/19/24 09/19/24 09/20/24 14:59 22:59 06:59 Intake Total 900 ml 1000 ml Output Total 150 ml 360 ml Balance 750 ml 640 ml medications Current Medications Medications Dose Ordered Sig/Misty Route Start Time Stop Time Status Last Admin Dose Admin Ondansetron HCl 4 mg Q4HP PRN IV 09/16/24 08:30 09/20/24 15:37 4 MG Acetaminophen 650 mg Q6HP PRN PO 09/16/24 08:30 09/16/24 08:59 650 MG Diagnostic Test (Pha) 1 strip ACHS 09/16/24 11:30 09/20/24 11:30 1 STRIP Insulin Human Regular ACHS SC 09/16/24 11:30 09/20/24 12:13 2 UNITS Dextrose 50 ml UD PRN IV 09/16/24 08:30 Hydralazine HCl 10 mg Q6HP PRN IV 09/16/24 08:30 Apixaban 2.5 mg BID PO 09/16/24 10:00 09/20/24 11:12 2.5 MG Bumetanide 1 mg DAILY PO 09/16/24 10:00 09/20/24 11:11 1 MG Carvedilol 12.5 mg Q12HR PO 09/16/24 10:00 09/20/24 11:11 12.5 MG Hydralazine HCl 25 mg TID PO 09/16/24 14:00 09/20/24 15:27 25 MG Isosorbide Dinitrate 20 mg TID@0600,1200,1800 PO 09/16/24 12:00 09/20/24 11:17 20 MG Atorvastatin Calcium 40 mg HS PO 09/16/24 22:00 09/19/24 22:23 40 MG Patient Own Medication 1 drop BID LEFTEYE 09/16/24 10:00 Quetiapine Fumarate 50 mg HS PO 09/16/24 22:00 09/19/24 22:23 50 MG Lorazepam 1 mg Q5MINP PRN IV 09/16/24 22:00 Levetiracetam 100 ml @ 400 mls/hr Q12H IV 09/19/24 14:00 09/20/24 15:27 400 MLS/HR Acetaminophen/ Hydrocodone Bitart 1 tab Q4HP PRN PO 09/19/24 13:15 Hold 09/20/24 11:18 1 TAB Morphine Sulfate 2 mg Q4HPRN PRN IV 09/20/24 14:15 09/20/24 15:27 2 MG objective General: the patient is well developed and nourished. No acute distress. MENTAL STATUS: Subjective SPEECH, LANGUAGE, HIGHER CORTICAL FUNCTION: no aphasia or dysathria. CRANIAL NERVES: Left pupil is bigger and nonreactive, right pupil is reactive. He can move the eyes. Facial sensation ok in all three divisions bilaterally. Mandibular strength intact. Facial muscles symmetrical and strength intact. SENSATION: Sensation to touch and pinprick feels fine MOTOR: Normal tone in the upper and lower extremity. Normal muscle bulk. No fasciculations. No abnormal movements or posturing. He moves the arms and legs with no problem REFLEXES: Deep tendon reflexes are symmetrical. No pathological reflexes. (inadequate examined) CEREBELLAR/COORDINATION: Deferred GAIT/STATION: deferred. laboratory and microbiology Laboratory Tests 09/17/24 08:30 Test 09/17/24 08:30 Range/Units Serum Glucose 193 H 74-106 mg/dL Problem List Seizure disorder with seizure breakthrough Acute right eye pain, blindness Reports stroke, not confirmed with the patient Assessment/Plan Monitoring Supportive treatment Telemetry Keppra 1500 mg b.i.d. Ativan for seizure breakthrough Transfer higher level care, need ophthalmology Re: acute right eye blindness This medical document was created using an electronic medical record system with [employer] dictation system. Although this document has been carefully reviewed, there may still be some phonetic and typographical errors. These areas are purely typographical due to imperfections of the software programs, and do not reflect any compromise in the patient's medical care. Prognosis poor Plan discussed with: Other KATHY HOYT MD Sep 20, 2024 15:45
[2024-09-21 06:44] LABS: Hematocrit 30.1 % (41.0-53.0); Hemoglobin 10.5 g/dL (13.5-17.5); Mean Corpuscular Hemoglobin 31.1 pg (28.0-32.0); Mean Corpuscular Volume 89.2 fL (80.0-100.0); Nucleated Red Blood Cells % 0.1 %
[2024-09-21 06:54] LABS: Chloride 105 mmol/L (98-107); Sodium 140 mmol/L (136-145)
[2024-09-21 06:55] LABS: Anion Gap 9 (5-15); Carbon Dioxide 26 mmol/L (20-31)
[2024-09-21 06:56] LABS: Calcium 9.4 mg/dL (8.7-10.4)
[2024-09-21 07:01] LABS: BUN/Creatinine Ratio 9.1 (10.0-20.0); Magnesium 1.8 mg/dL (1.6-2.6)
[2024-09-21 07:04] LABS: Glucose 108 mg/dL (74-106); Potassium 5.5 mmol/L (3.5-5.1)
[2024-09-21 07:05] LABS: Blood Urea Nitrogen 53 mg/dL (9-23)
[2024-09-21 08:00] VITALS: PULSE 74; RESP 16; O2SAT 97
[2024-09-21 08:56] VITALS: BP 168/98; PULSE 74; RESP 16; TEMP 98.1; O2SAT 97
[2024-09-21 13:00] VITALS: BP 158/89; PULSE 89; RESP 18; TEMP 98.1; O2SAT 98
--- NOTE | 2024-09-21 14:40 | DVHPN2 ---
Progress Note Date Seen: Sep 21, 2024 Medical Necessity Reason Pt with a Central, PICC or Fol: Yes Objective vital signs Vital Sign Date Time Temp Pulse Resp B/P (MAP) Pulse Ox O2 Delivery O2 Flow Rate FiO2 09/21/24 13:00 98.1 89 18 158/89 (112) 98 98.1 09/21/24 08:00 Room Air* 0 21 Total Intake and Output 09/20/24 09/20/24 09/21/24 15:00 23:00 07:00 Intake Total 1200 ml 250 ml Output Total 1080 ml Balance 120 ml 250 ml medications Current Medications Medications Dose Ordered Sig/Misty Route Start Time Stop Time Status Last Admin Dose Admin Ondansetron HCl 4 mg Q4HP PRN IV 09/16/24 08:30 09/20/24 21:26 4 MG Acetaminophen 650 mg Q6HP PRN PO 09/16/24 08:30 09/16/24 08:59 650 MG Diagnostic Test (Pha) 1 strip ACHS 09/16/24 11:30 09/21/24 11:48 1 STRIP Insulin Human Regular ACHS SC 09/16/24 11:30 09/21/24 11:49 4 UNITS Dextrose 50 ml UD PRN IV 09/16/24 08:30 Hydralazine HCl 10 mg Q6HP PRN IV 09/16/24 08:30 Apixaban 2.5 mg BID PO 09/16/24 10:00 09/20/24 21:18 2.5 MG Bumetanide 1 mg DAILY PO 09/16/24 10:00 09/20/24 11:11 1 MG Carvedilol 12.5 mg Q12HR PO 09/16/24 10:00 09/20/24 21:17 12.5 MG Hydralazine HCl 25 mg TID PO 09/16/24 14:00 09/21/24 06:15 25 MG Isosorbide Dinitrate 20 mg TID@0600,1200,1800 PO 09/16/24 12:00 09/21/24 06:16 20 MG Atorvastatin Calcium 40 mg HS PO 09/16/24 22:00 09/20/24 21:16 40 MG Patient Own Medication 1 drop BID LEFTEYE 09/16/24 10:00 Quetiapine Fumarate 50 mg HS PO 09/16/24 22:00 09/20/24 21:16 50 MG Lorazepam 1 mg Q5MINP PRN IV 09/16/24 22:00 Levetiracetam 100 ml @ 400 mls/hr Q12H IV 09/19/24 14:00 09/21/24 01:56 400 MLS/HR Acetaminophen/ Hydrocodone Bitart 1 tab Q4HP PRN PO 09/19/24 13:15 Hold 09/20/24 11:18 1 TAB Morphine Sulfate 2 mg Q4HPRN PRN IV 09/20/24 14:15 09/21/24 10:58 2 MG Clonazepam 0.5 mg Q8HP PRN PO 09/21/24 12:00 Examination: GENERAL:Abnormal, CVS:Normal, SKIN:Abnormal laboratory and microbiology Laboratory Tests 09/21/24 06:18 Test 09/21/24 06:18 Range/Units Serum Glucose 108 H 74-106 mg/dL Microbiology Date/Time Source Procedure Growth Status 09/17/24 03:40 Nose MRSA Screen - Final Complete Problem List/Assessment/Plan Problem List/Assessment/Plan ESRD on hemodialysis Seizures Hypertension AFib Congestive heart failure blindness shingles HD patient ended treatment early , refused to comply with food avoidance during dialysis to prevent aspiration neuro following, rec HLOC for ophthalmology eval and management Plan discussed with: Patient Dietary Evaluation Review Comments: 1) Renal standard + CCHO 75gm diet 2) Refer CDE on DC Expected Outcomes/Goals: lab values to improve Fu 3-4 days Total Time (mins): 35 SHAHID GARSIA MD Sep 21, 2024 14:40
--- NOTE | 2024-09-21 15:20 | DVHDS2 ---
Discharge Summary Date of Admission Sep 16, 2024 at 08:25 Date of Discharge: Sep 21, 2024 Labs/Diagnostic Data: Laboratory Results Test 09/21/24 11:31 09/21/24 06:18 09/20/24 10:35 09/17/24 08:30 POC Glucose 232 mg/dl (70-106) White Blood Count 6.1 10^3/uL (4.4-10.8) Red Blood Count 3.38 10^6/uL (4.5-5.90) Hemoglobin 10.5 g/dL (13.5-17.5) Hematocrit 30.1 % (41.0-53.0) Mean Corpuscular Volume 89.2 fL (80.0-100.0) Mean Corpuscular Hemoglobin 31.1 pg (28.0-32.0) Mean Corpuscular Hemoglobin Concent 34.8 g/dL (32.0-36.0) Red Cell Distribution Width 17.3 % (11.8-14.3) Platelet Count 246 10^3/uL (140-450) Mean Platelet Volume 7.4 fL (6.9-10.8) Neutrophils (%) (Auto) 47.9 % (37.0-80.0) Lymphocytes (%) (Auto) 37.3 % (10.0-50.0) Monocytes (%) (Auto) 9.1 % (0.0-12.0) Eosinophils (%) (Auto) 5.1 % (0.0-7.0) Basophils (%) (Auto) 0.6 % (0.0-2.0) Neutrophils # (Auto) 2.9 10 ^3/uL (1.6-8.6) Lymphocytes # (Auto) 2.3 10 ^3/uL (0.4-5.4) Monocytes # (Auto) 0.5 10 ^3/uL (0-1.3) Eosinophils # (Auto) 0.3 10 ^3/uL (0-0.8) Basophils # (Auto) 0 10 ^3/uL (0-0.2) Nucleated Red Blood Cells 0.1 % Sodium Level 140 mmol/L (136-145) Potassium Level 5.5 mmol/L (3.5-5.1) Chloride Level 105 mmol/L (98-107) Carbon Dioxide Level 26 mmol/L (20-31) Anion Gap 9 (5-15) Blood Urea Nitrogen 53 mg/dL (9-23) Creatinine 5.81 mg/dL (0.700-1.30) Glomerular Filtration Rate Calc 11 mL/min (>90) BUN/Creatinine Ratio 9.1 (10.0-20.0) Serum Glucose 108 mg/dL (74-106) Calcium Level 9.4 mg/dL (8.7-10.4) Magnesium Level 1.8 mg/dL (1.6-2.6) Hepatitis B Surface Antigen Negative (Negative) Total Bilirubin 0.3 mg/dL (0.2-1.0) Aspartate Amino Transferase (AST) 11 U/L (<34) Alanine Aminotransferase (ALT) 9 U/L (7-40) Alkaline Phosphatase 97 U/L (46-116) Total Protein 5.9 g/dL (5.7-8.2) Albumin 3.7 g/dL (3.2-4.8) Test 09/16/24 07:20 09/16/24 05:52 09/16/24 04:56 Urine Color Light-yellow (Yellow) Urine Clarity Clear (Clear) Urine pH 7.0 (5.0-9.0) Urine Specific [place] 1.018 (1.001-1.035) Urine Protein 3+ (Negative) Urine Ketones Negative (Negative) Urine Blood Trace /uL (Negative) Urine Nitrite Negative (Negative) Urine Bilirubin Negative (Negative) Urine Urobilinogen Normal mg/dL (Negative) Urine Leukocyte Esterase Negative /uL (Negative) Urine RBC 1 /hpf (0 - 3) Urine Microscopic WBC 1 /HPF (0-3) Urine Squamous Epithelial Cells None seen /hpf (<5) Urine Bacteria None seen /hpf (None Seen) Urine Glucose 3+ mg/dL (Normal) Troponin I High Sensitivity 15 ng/L (</=54) Levetiracetam Level 13.2 ug/mL (10.0-40.0) Other Laboratory Tests 09/21/24 06:18 Brief Hx & Hospital Course: 53 yo M with ESRD on HD, recurrent admission for overload and hyperk, epilepsy, schizophrenia, left eye blindness, HTN admitted for seizure and sudden onset R eye pain and blindness. Patient was seen by neuro, and decision made to transfer to [facility]. Patient is accepted to [facility] pending bed availability. Patient will continue reg HD in the mean time. CT head with no old strokes. Condition at Discharge: Fair Final Diagnosis/Problems List Acute right eye blindness need higher level of care for ophthalmology Breakthrough seizures currently on Keppra Epilepsy Diabetes mellitus type 2 Hypertension Dyslipidemia End-stage renal disease on hemodialysis Schizophrenia Left eye blindness Recent history of shingles Discharge Disposition: Acute Care Facility Discharge Instruct/Medications Scheduled Acyclovir (Acyclovir), 800 MG PO TID Apixaban Base (Eliquis), 2.5 MG PO BID Atorvastatin Calcium (Lipitor), 40 MG PO DAILY Bumetanide (Bumetanide), 1 TAB PO DAILY Carvedilol (Coreg), 12.5 MG PO Q12HR Hydralazine Hcl (Hydralazine Hcl), 25 MG PO TID Isosorbide Dinitrate (Isosorbide Dinitrate), 2 TAB PO TID@0600,1200,1800 Levetiracetam (Levetiracetam), 1 TAB PO GERARD, (Reported) Levetiracetam (Levetiracetam), 1 TAB PO BID Olopatadine HCl (Olopatadine Hydrochloride), 1 DROP LEFTEYE BID, (Reported) Scheduled PRN Hydrocodone-Acetaminophen (Hydrocodone Bitartrate/AC 5-325 mg), 1 TAB PO Q6HP PRN Miscellaneous Medications Insulin Lispro (Insulin Lispro Thai Kwi), (Reported) Quetiapine Fumerate (Quetiapine Fumarate), 1 TAB PO, (Reported) Discharge Statement: "Patient was advised to return to the ER or call 911 if any headaches, dizziness, shortness of breath, chest pain, abdominal pain, bleeding, fevers, or worsening of medical condition. Patient was counseled about treatment plan, medications, possible side effects, patientverbalized understanding. All questions were answered to the best of my ability. This discharge took greater then 30 minutes in planning, reviewing documentation, counseling the patient, and discussing with other team members." ASSESSMENT ASSESSMENT Assessment Date of Service: Sep 21, 2024 Billing Provider: FABRICIO ANTHONY MD Common Visit Codes: [id number] INP/OBS CARE(HIGH) FABRICIO ANTHONY MD Sep 21, 2024 15:20
[2024-09-21] MEDS: clonazePAM 0.5 MG TAB PO PRN (16:14)
[2024-09-21 20:00] VITALS: PULSE 81; RESP 18; O2SAT 97
[2024-09-21 21:00] VITALS: BP 140/76; PULSE 81; RESP 18; TEMP 97.8; O2SAT 97
[2024-09-22] VITALS (8 sets, daily range): BP systolic 110–173; BP diastolic 52–95; PULSE 74–89; RESP 15–18; TEMP 97.6–99.2; O2SAT 92–98
[2024-09-22 10:07] LABS: Chloride 107 mmol/L (98-107); Sodium 139 mmol/L (136-145)
[2024-09-22 10:08] LABS: Anion Gap 9 (5-15); Carbon Dioxide 23 mmol/L (20-31)
[2024-09-22 10:09] LABS: Calcium 9.7 mg/dL (8.7-10.4)
[2024-09-22 10:13] LABS: BUN/Creatinine Ratio 6.3 (10.0-20.0)
[2024-09-22 10:42] LABS: Blood Urea Nitrogen 32 mg/dL (9-23); Glucose 223 mg/dL (74-106)
[2024-09-22 10:44] LABS: Potassium 5.8 mmol/L (3.5-5.1)
--- NOTE | 2024-09-22 12:15 | DVHPN2 ---
Assessment/Plan Assessment/Plan progress note 53 yo M with ESRD on HD, recurrent admission for overload and hyperk, epilepsy, schizophrenia, left eye blindness, HTN admitted for seizure and sudden onset R eye pain and blindness. Patient was seen by neuro, and decision made to transfer to [facility]. Patient is accepted to [facility] pending bed availability. Patient will continue reg HD in the mean time. CT head with no old strokes. phsyical exam disheveld anisokoria likely 2/2 left eye blindness, no redness aox4 ctab s1 s2 irregular abdomen soft no le edema labs ekg imaging reviewed assessment and plan Acute right eye blindness need higher level of care for ophthalmology Breakthrough seizures currently on Keppra Epilepsy Diabetes mellitus type 2 Hypertension Dyslipidemia End-stage renal disease on hemodialysis Schizophrenia Left eye blindness Recent history of shingles pending bed in [facility] MRI, EEG seen by neuro HD per renal resume home meds lokelma, repeat K diet renal dvt ppx ac full code Plan discussed with: Patient My Orders Orders - FABRICIO ANTHONY MD Procedure Category Date Status Time Discharge DISCHARGE 09/21/24 Transmitted 15:16 Sodium Zirconium PHA 09/22/24 Logged Cyclosilicate 12:15 Complete Blood Count LAB 09/23/24 Verified 04:00 Erythrocyte LAB 09/22/24 Transmitted Sedimentation Rate 12:10 C-Reactive Protein LAB 09/22/24 Transmitted 12:10 Eeg Awake/Sleep/Act EEG 09/22/24 Transmitted 12:10 Brain Head Wo Contrast MRI 09/22/24 Transmitted 12:10 Date of Service: Sep 22, 2024 Billing Provider: FABRICIO ANTHONY MD Common Visit Codes: [id number] INP/OBS CARE(HIGH) FABRICIO ANTHONY MD Sep 22, 2024 12:15
[2024-09-22] MEDS: SODIUM ZIRCONIUM CYCL 10 GM PAK PO ONE (13:00)
--- NOTE | 2024-09-22 13:13 | DVHPN2 ---
Progress Note - Dictate Date Seen: Sep 22, 2024 Medical Necessity Reason Pt with a Central, PICC or Fol: Yes Subjective Mr. Goins is a 53 years old left-handed gentleman with a history of hypertension, diabetes, dyslipidemia, congestive heart failure, atrial fibrillation, stroke (not confirmed with him), seizure, schizophrenia, left eye blindness, she came to the hospital on 09/16/2024 with a chief complaint of seizure activity I have seen and examined the patient, I have talked to his nurse, he is awake, but he has eyes closed all the time, he is very lee, not able to examine him properly On 09/22/2024, he reports no pain, but no light perception in the right eye. He moves the arms and legs with no problem No seizure [facility] hospitalist: Will discuss the case with manager merchandising. Also recommend to rule out temporal arteritis, stroke Urinalysis, 08/28/1910/09/2024: Unremarkable WBC/HB/PLT/MCV, 09/16/24: 8.5/11.3/327/86.9 ESR, 09/22/2024: 58 CRP, 09/22/24: 0.07 BUN/CR, 09/16/2024: 57/5.58 HGB A1c, 08/17/2024: 8.1 Ferritin, 08/22/24: 515.2 TG/HDL/LDL/HDL, 07/08/2024: 176/274/188/50 CT head, 09/16/2024: No acute intracranial abnormality MRI head, 09/22/2024: No evidence of acute infarction, intracranial hemorrhage, mass effect or hydrocephalus. Mild changes of chronic microvascular ischemic disease with involvement of the waqas. MRI orbits, 09/22/2024: Grossly unremarkable MRI of the orbits without contrast. Sequela of chronic microvascular ischemic changes. vital signs Vital Sign Date Time Temp Pulse Resp B/P (MAP) Pulse Ox O2 Delivery O2 Flow Rate FiO2 09/22/24 13:01 129/70 09/22/24 12:30 78 17 09/22/24 09:00 97.6 92 97.6 09/22/24 08:00 Room Air* 0 21 Total Intake and Output 09/21/24 09/21/24 09/22/24 15:00 23:00 07:00 Intake Total 600 ml 650 ml Output Total 700 ml 650 ml Balance -100 ml 0 ml medications Current Medications Medications Dose Ordered Sig/Misty Route Start Time Stop Time Status Last Admin Dose Admin Ondansetron HCl 4 mg Q4HP PRN IV 09/16/24 08:30 09/20/24 21:26 4 MG Acetaminophen 650 mg Q6HP PRN PO 09/16/24 08:30 09/16/24 08:59 650 MG Diagnostic Test (Pha) 1 strip ACHS 09/16/24 11:30 09/22/24 11:30 1 STRIP Insulin Human Regular ACHS SC 09/16/24 11:30 09/22/24 12:20 3 UNITS Dextrose 50 ml UD PRN IV 09/16/24 08:30 Hydralazine HCl 10 mg Q6HP PRN IV 09/16/24 08:30 Apixaban 2.5 mg BID PO 09/16/24 10:00 09/22/24 10:04 2.5 MG Bumetanide 1 mg DAILY PO 09/16/24 10:00 09/22/24 10:04 1 MG Carvedilol 12.5 mg Q12HR PO 09/16/24 10:00 09/22/24 10:03 12.5 MG Hydralazine HCl 25 mg TID PO 09/16/24 14:00 09/22/24 05:48 25 MG Isosorbide Dinitrate 20 mg TID@0600,1200,1800 PO 09/16/24 12:00 09/22/24 13:01 20 MG Atorvastatin Calcium 40 mg HS PO 09/16/24 22:00 09/21/24 21:24 40 MG Patient Own Medication 1 drop BID LEFTEYE 09/16/24 10:00 Quetiapine Fumarate 50 mg HS PO 09/16/24 22:00 09/21/24 21:24 50 MG Lorazepam 1 mg Q5MINP PRN IV 09/16/24 22:00 Levetiracetam 100 ml @ 400 mls/hr Q12H IV 09/19/24 14:00 09/22/24 02:01 400 MLS/HR Acetaminophen/ Hydrocodone Bitart 1 tab Q4HP PRN PO 09/19/24 13:15 Hold 09/20/24 11:18 1 TAB Morphine Sulfate 2 mg Q4HPRN PRN IV 09/20/24 14:15 7/3/25 10:05 2 MG Clonazepam 0.5 mg Q8HP PRN PO 09/21/24 12:00 09/21/24 16:14 0.5 MG objective General: the patient is well developed and nourished. No acute distress. MENTAL STATUS: Subjective SPEECH, LANGUAGE, HIGHER CORTICAL FUNCTION: no aphasia or dysathria. CRANIAL NERVES: Left pupil is bigger and nonreactive, right pupil is reactive. He can move the eyes. Facial sensation ok in all three divisions bilaterally. Mandibular strength intact. Facial muscles symmetrical and strength intact. SENSATION: Sensation to touch and pinprick feels fine MOTOR: Normal tone in the upper and lower extremity. Normal muscle bulk. No fasciculations. No abnormal movements or posturing. He moves the arms and legs with no problem REFLEXES: Deep tendon reflexes are symmetrical. No pathological reflexes. CEREBELLAR/COORDINATION: Deferred GAIT/STATION: deferred. laboratory and microbiology Laboratory Tests 09/22/24 09:27 09/21/24 06:18 Test 09/22/24 09:27 Range/Units Serum Glucose 223 #H 74-106 mg/dL Problem List Seizure disorder with seizure breakthrough Acute right eye pain, blindness Reports stroke, not confirmed with the patient Assessment/Plan Monitoring Supportive treatment Telemetry Keppra 1500 mg b.i.d. Ativan for seizure breakthrough Transfer higher level care, need ophthalmology Re: acute right eye blindness This medical document was created using an electronic medical record system with [employer] dictation system. Although this document has been carefully reviewed, there may still be some phonetic and typographical errors. These areas are purely typographical due to imperfections of the software programs, and do not reflect any compromise in the patient's medical care. Prognosis poor Dietary Evaluation Review Comments: 1) Renal standard + CCHO 75gm diet 2) Refer CDE on DC Expected Outcomes/Goals: lab values to improve Fu 3-4 days Plan discussed with: Other KATHY HOYT MD Sep 22, 2024 13:12
[2024-09-22] MEDS ORDERED: LORazepam 2MG/ML-1ML VIAL IV PRN (13:15)
--- NOTE | 2024-09-22 14:32 | DVHPN2 ---
Progress Note Date Seen: Sep 22, 2024 Medical Necessity Reason Pt with a Central, PICC or Fol: Yes Objective vital signs Vital Sign Date Time Temp Pulse Resp B/P (MAP) Pulse Ox O2 Delivery O2 Flow Rate FiO2 09/22/24 13:01 129/70 09/22/24 12:30 78 17 09/22/24 09:00 97.6 92 97.6 09/22/24 08:00 Room Air* 0 21 Total Intake and Output 09/21/24 09/21/24 09/22/24 15:00 23:00 07:00 Intake Total 600 ml 650 ml Output Total 700 ml 650 ml Balance -100 ml 0 ml medications Current Medications Medications Dose Ordered Sig/Misty Route Start Time Stop Time Status Last Admin Dose Admin Ondansetron HCl 4 mg Q4HP PRN IV 09/16/24 08:30 09/20/24 21:26 4 MG Acetaminophen 650 mg Q6HP PRN PO 09/16/24 08:30 09/16/24 08:59 650 MG Diagnostic Test (Pha) 1 strip ACHS 09/16/24 11:30 09/22/24 11:30 1 STRIP Insulin Human Regular ACHS SC 09/16/24 11:30 09/22/24 12:20 3 UNITS Dextrose 50 ml UD PRN IV 09/16/24 08:30 Hydralazine HCl 10 mg Q6HP PRN IV 09/16/24 08:30 Apixaban 2.5 mg BID PO 09/16/24 10:00 09/22/24 10:04 2.5 MG Bumetanide 1 mg DAILY PO 09/16/24 10:00 09/22/24 10:04 1 MG Carvedilol 12.5 mg Q12HR PO 09/16/24 10:00 09/22/24 10:03 12.5 MG Hydralazine HCl 25 mg TID PO 09/16/24 14:00 09/22/24 05:48 25 MG Isosorbide Dinitrate 20 mg TID@0600,1200,1800 PO 09/16/24 12:00 09/22/24 13:01 20 MG Atorvastatin Calcium 40 mg HS PO 09/16/24 22:00 09/21/24 21:24 40 MG Patient Own Medication 1 drop BID LEFTEYE 09/16/24 10:00 Quetiapine Fumarate 50 mg HS PO 09/16/24 22:00 09/21/24 21:24 50 MG Lorazepam 1 mg Q5MINP PRN IV 09/16/24 22:00 Levetiracetam 100 ml @ 400 mls/hr Q12H IV 09/19/24 14:00 09/22/24 02:01 400 MLS/HR Acetaminophen/ Hydrocodone Bitart 1 tab Q4HP PRN PO 09/19/24 13:15 Hold 09/20/24 11:18 1 TAB Morphine Sulfate 2 mg Q4HPRN PRN IV 09/20/24 14:15 09/22/24 10:05 2 MG Clonazepam 0.5 mg Q8HP PRN PO 09/21/24 12:00 09/21/24 16:14 0.5 MG Lorazepam 1 mg ONCE PRN IV 09/22/24 13:15 Examination: GENERAL:Abnormal, HEENT:Abnormal, LUNGS:Abnormal laboratory and microbiology Laboratory Tests 09/22/24 09:27 09/21/24 06:18 Test 09/22/24 09:27 Range/Units Serum Glucose 223 #H 74-106 mg/dL Microbiology Date/Time Source Procedure Growth Status 09/17/24 03:40 Nose MRSA Screen - Final Complete Problem List/Assessment/Plan Problem List/Assessment/Plan ESRD on hemodialysis Seizures Hypertension AFib Congestive heart failure blindness shingles Hyperkalemia Repeat dialysis today in due to dialysis noncompliance Daily potassium binder Renal diet Rest of care as per primary medical doctor neuro following, rec HLOC for ophthalmology eval and management Plan discussed with: Patient Dietary Evaluation Review Comments: 1) Renal standard + CCHO 75gm diet 2) Refer CDE on DC Expected Outcomes/Goals: lab values to improve Fu 3-4 days SHAHID GARSIA MD Sep 22, 2024 14:32
[2024-09-22] MEDS: LORazepam 2MG/ML-1ML VIAL IV PRN (14:49)
--- NOTE | 2024-09-22 16:06 | DVH ---
PROCEDURE: MRI BRAIN HEAD WO CONTRAST INDICATION: CVA EXAM DATE: 09/22/2024 02:59 PM COMPARISON: None TECHNIQUE: MRI of the brain without intravenous contrast. FINDINGS: Diffusion weighted images of the brain demonstrate no evidence of acute infarction. There is no evidence of acute intracranial hemorrhage, extra-axial collection, mass effect, midline s hift, herniation or hydrocephalus. The ventricles, sulci and cisterns appear age appropriate. Mild changes of chronic microvascular ischemic disease with involvement of the waqas. There are no signal abnormalities on the susceptibility weighted sequences. The major vascular flow voids are present. The visualized paranasal sinuses and mastoid air cells are clear. The surrounding soft tissues and o sseous structures are unremarkable. IMPRESSION: 1. No evidence of acute infarction, intracranial hemorrhage, mass effect or hydrocephalus. Mild mercado es of chronic microvascular ischemic disease with involvement of the waqas. HS:Y
--- NOTE | 2024-09-22 16:21 | DVH ---
PROCEDURE: MRI MRI ORBITS W OUT CONTRAST Indication: Rt eye blindness COMPARISON: MRI head from today TECHNIQUE: Multiplanar multisequence images of the orbits were obtained without contrast. FINDINGS: Limited evaluation without contrast. The orbits and retrobulbar spaces appear unremarkable. Extra-ocu lar muscles appear unremarkable. No edema signal within the retrobulbar fat. On images of the MRI bra in from today of the optic chiasm appears unremarkable . Chronic microvascular ischemic changes within the periventricular white matter, waqas. Ethmoid sinus disease. IMPRESSION: Grossly unremarkable MRI of the orbits without contrast. Sequela of chronic microvascular ischemic changes.
[2024-09-23] MEDS: SODIUM CHL 0.9% 1000 ML BAG XX ONE ×2 (00:41→22:28)
[2024-09-23 01:00] VITALS: BP 115/71; PULSE 89; RESP 18; TEMP 99.1; O2SAT 97
[2024-09-23 05:00] VITALS: BP 113/64; PULSE 83; RESP 17; TEMP 98.7; O2SAT 98
[2024-09-23 06:47] LABS: Hematocrit 31.4 % (41.0-53.0); Hemoglobin 10.9 g/dL (13.5-17.5); Mean Corpuscular Hemoglobin 31.0 pg (28.0-32.0); Mean Corpuscular Volume 89.6 fL (80.0-100.0); Nucleated Red Blood Cells % 0.2 %
[2024-09-23 06:56] LABS: Anion Gap 8 (5-15); Carbon Dioxide 29 mmol/L (20-31); Chloride 104 mmol/L (98-107); Potassium 4.6 mmol/L (3.5-5.1); Sodium 141 mmol/L (136-145)
[2024-09-23 06:58] LABS: Calcium 9.4 mg/dL (8.7-10.4)
[2024-09-23 07:02] LABS: BUN/Creatinine Ratio 7.3 (10.0-20.0)
[2024-09-23 07:07] LABS: Blood Urea Nitrogen 30 mg/dL (9-23); Glucose 118 mg/dL (74-106)
[2024-09-23] MEDS: SODIUM ZIRCONIUM CYCL 10 GM PAK PO SCH (09:57)
[2024-09-23 13:00] VITALS: BP 109/66; PULSE 89; RESP 20; TEMP 98.6; O2SAT 99
--- NOTE | 2024-09-23 13:32 | DVHPN2 ---
Progress Note - Dictate Date Seen: Sep 23, 2024 Medical Necessity Reason Pt with a Central, PICC or Fol: Yes Subjective Resting comfortably, arousable this afternoon vital signs Vital Sign Date Time Temp Pulse Resp B/P (MAP) Pulse Ox O2 Delivery O2 Flow Rate FiO2 09/23/24 12:07 109/66 09/23/24 10:36 91 09/23/24 10:35 16 09/23/24 08:15 Room Air* 0 21 09/23/24 05:00 98.7 98 98.7 Total Intake and Output 09/22/24 09/22/24 09/23/24 15:00 23:00 07:00 Intake Total 480 ml 340 ml Output Total 700 ml 475 ml Balance -220 ml -135 ml medications Current Medications Medications Dose Ordered Sig/Misty Route Start Time Stop Time Status Last Admin Dose Admin Ondansetron HCl 4 mg Q4HP PRN IV 09/16/24 08:30 09/20/24 21:26 4 MG Acetaminophen 650 mg Q6HP PRN PO 09/16/24 08:30 09/16/24 08:59 650 MG Diagnostic Test (Pha) 1 strip ACHS 09/16/24 11:30 09/23/24 11:45 1 STRIP Insulin Human Regular ACHS SC 09/16/24 11:30 09/23/24 11:30 4 UNITS Dextrose 50 ml UD PRN IV 09/16/24 08:30 Hydralazine HCl 10 mg Q6HP PRN IV 09/16/24 08:30 Apixaban 2.5 mg BID PO 09/16/24 10:00 09/23/24 09:57 2.5 MG Bumetanide 1 mg DAILY PO 09/16/24 10:00 09/23/24 09:57 1 MG Carvedilol 12.5 mg Q12HR PO 09/16/24 10:00 09/23/24 09:57 12.5 MG Hydralazine HCl 25 mg TID PO 09/16/24 14:00 09/23/24 05:34 25 MG Isosorbide Dinitrate 20 mg TID@0600,1200,1800 PO 09/16/24 12:00 09/23/24 12:07 20 MG Atorvastatin Calcium 40 mg HS PO 09/16/24 22:00 09/22/24 22:44 40 MG Patient Own Medication 1 drop BID LEFTEYE 09/16/24 10:00 Quetiapine Fumarate 50 mg HS PO 09/16/24 22:00 09/22/24 22:44 50 MG Lorazepam 1 mg Q5MINP PRN IV 09/16/24 22:00 Levetiracetam 100 ml @ 400 mls/hr Q12H IV 09/19/24 14:00 09/23/24 01:46 400 MLS/HR Acetaminophen/ Hydrocodone Bitart 1 tab Q4HP PRN PO 09/19/24 13:15 Hold 09/20/24 11:18 1 TAB Morphine Sulfate 2 mg Q4HPRN PRN IV 09/20/24 14:15 09/23/24 09:58 2 MG Clonazepam 0.5 mg Q8HP PRN PO 09/21/24 12:00 09/21/24 16:14 0.5 MG Lorazepam 1 mg ONCE PRN IV 09/22/24 13:15 09/22/24 14:49 1 MG Zirconium Oxide 10 gm DAILY PO 09/23/24 10:00 objective Gen: nad lungs: cta anteriorly cvs: no rub abd: soft, bowel sounds audible ext: no edema laboratory and microbiology Laboratory Tests 09/23/24 04:30 Test 09/23/24 04:30 Range/Units Serum Glucose 118 #H 74-106 mg/dL Assessment/Plan Problem List/Assessment/Plan ESRD on hemodialysis Seizures Hypertension AFib Congestive heart failure blindness shingles Hyperkalemia - metabolic parameters stable, acceptable - without urgent indication for dialysis today. - we will continue to evaluate daily. Dietary Evaluation Review Comments: 1) Renal standard + CCHO 75gm diet 2) Refer CDE on DC Expected Outcomes/Goals: lab values to improve Fu 3-4 days Plan discussed with: Other DANIELE FREEDMAN MD Sep 23, 2024 13:32
--- NOTE | 2024-09-23 15:40 | DVHPN2 ---
Assessment/Plan Assessment/Plan progress note 53 yo M with ESRD on HD, recurrent admission for overload and hyperk, epilepsy, schizophrenia, left eye blindness, HTN admitted for seizure and sudden onset R eye pain and blindness. Patient was seen by neuro, and decision made to transfer to [facility]. Patient is accepted to [facility] pending bed availability. Patient will continue reg HD in the mean time. CT head with no old strokes. seen during rounds. still pending bed. MRI done in orbits and brain, no stroke. per neuro possible temporal arteritis phsyical exam disheveld anisokoria likely 2/2 left eye blindness, no redness aox4 ctab s1 s2 irregular abdomen soft no le edema labs ekg imaging reviewed assessment and plan Acute right eye blindness need higher level of care for ophthalmology Breakthrough seizures currently on Keppra Epilepsy Diabetes mellitus type 2 Hypertension Dyslipidemia End-stage renal disease on hemodialysis Schizophrenia Left eye blindness Recent history of shingles pending bed in [facility] MRI, EEG seen by neuro HD per renal resume home meds lokelma, repeat K diet renal dvt ppx ac full code Plan discussed with: Patient Date of Service: Sep 23, 2024 Billing Provider: FABRICIO ANTHONY MD Common Visit Codes: [id number] INP/OBS CARE(HIGH) FABRICIO ANTHONY MD Sep 23, 2024 15:40
[2024-09-23 19:40] VITALS: PULSE 83; RESP 16; O2SAT 96
[2024-09-23 20:09] LABS: COVID19 ANTIGEN SOFIA FIA NEGATIVE (NEGATIVE)
[2024-09-23 21:00] VITALS: BP 114/54; PULSE 83; RESP 16; TEMP 98.9; O2SAT 96
[2024-09-24 01:00] VITALS: BP 116/67; PULSE 79; RESP 16; TEMP 98.8; O2SAT 96
[2024-09-24 06:54] LABS: Anion Gap 12 (5-15); Carbon Dioxide 27 mmol/L (20-31); Chloride 104 mmol/L (98-107); Potassium 5.0 mmol/L (3.5-5.1); Sodium 143 mmol/L (136-145)
[2024-09-24 06:56] LABS: Calcium 10.1 mg/dL (8.7-10.4)
[2024-09-24 07:00] LABS: BUN/Creatinine Ratio 7.7 (10.0-20.0); Glucose 96 mg/dL (74-106)
[2024-09-24 07:11] LABS: Blood Urea Nitrogen 48 mg/dL (9-23)
[2024-09-24 09:00] VITALS: BP 141/88; PULSE 76; RESP 16; TEMP 98.4; O2SAT 98
--- NOTE | 2024-09-24 11:00 | DVHPN2 ---
Progress Note - Dictate Date Seen: Sep 24, 2024 Medical Necessity Reason Pt with a Central, PICC or Fol: Yes Subjective Denies subjective complaint this morning vital signs Vital Sign Date Time Temp Pulse Resp B/P (MAP) Pulse Ox O2 Delivery O2 Flow Rate FiO2 09/24/24 10:20 76 141/88 09/24/24 09:43 16 09/24/24 09:00 98.4 98 98.4 09/24/24 07:43 Room Air* 0 21 Total Intake and Output 09/23/24 09/23/24 09/24/24 15:00 23:00 07:00 Intake Total 100 ml 895 ml 400 ml Output Total 300 ml 350 ml Balance 100 ml 595 ml 50 ml medications Current Medications Medications Dose Ordered Sig/Misty Route Start Time Stop Time Status Last Admin Dose Admin Ondansetron HCl 4 mg Q4HP PRN IV 09/16/24 08:30 09/20/24 21:26 4 MG Acetaminophen 650 mg Q6HP PRN PO 09/16/24 08:30 09/16/24 08:59 650 MG Diagnostic Test (Pha) 1 strip ACHS 09/16/24 11:30 09/24/24 06:07 1 STRIP Insulin Human Regular ACHS SC 09/16/24 11:30 09/23/24 22:25 4 UNITS Dextrose 50 ml UD PRN IV 09/16/24 08:30 Hydralazine HCl 10 mg Q6HP PRN IV 09/16/24 08:30 Apixaban 2.5 mg BID PO 09/16/24 10:00 09/24/24 09:21 2.5 MG Bumetanide 1 mg DAILY PO 09/16/24 10:00 09/24/24 09:20 1 MG Carvedilol 12.5 mg Q12HR PO 09/16/24 10:00 09/24/24 09:20 12.5 MG Hydralazine HCl 25 mg TID PO 09/16/24 14:00 09/23/24 05:34 25 MG Isosorbide Dinitrate 20 mg TID@0600,1200,1800 PO 09/16/24 12:00 09/23/24 18:00 20 MG Atorvastatin Calcium 40 mg HS PO 09/16/24 22:00 09/23/24 22:26 40 MG Patient Own Medication 1 drop BID LEFTEYE 09/16/24 10:00 Quetiapine Fumarate 50 mg HS PO 09/16/24 22:00 09/23/24 22:26 50 MG Lorazepam 1 mg Q5MINP PRN IV 09/16/24 22:00 Levetiracetam 100 ml @ 400 mls/hr Q12H IV 09/19/24 14:00 09/24/24 02:25 400 MLS/HR Acetaminophen/ Hydrocodone Bitart 1 tab Q4HP PRN PO 09/19/24 13:15 Hold 09/20/24 11:18 1 TAB Morphine Sulfate 2 mg Q4HPRN PRN IV 09/20/24 14:15 09/24/24 09:21 2 MG Clonazepam 0.5 mg Q8HP PRN PO 09/21/24 12:00 09/21/24 16:14 0.5 MG Lorazepam 1 mg ONCE PRN IV 09/22/24 13:15 09/22/24 14:49 1 MG Zirconium Oxide 10 gm DAILY PO 09/23/24 10:00 09/24/24 09:20 10 GM objective Gen: nad lungs: cta anteriorly cvs: no rub abd: soft, bowel sounds audible ext: no edema laboratory and microbiology Laboratory Tests 09/24/24 04:48 09/23/24 04:30 Test 09/24/24 04:48 Range/Units Serum Glucose 96 74-106 mg/dL Assessment/Plan Problem List/Assessment/Plan ESRD on hemodialysis Seizures Hypertension AFib Congestive heart failure blindness shingles Hyperkalemia - next dialysis ThursdaySeptember 25 - noted plans for ongoing efforts for transfer to higher level of care for ophthalmology Dietary Evaluation Review Comments: 1) Renal standard + CCHO 75gm diet 2) Refer CDE on DC Expected Outcomes/Goals: lab values to improve Fu 3-4 days Plan discussed with: Patient DANIELE FREEDMAN MD Sep 24, 2024 11:00
[2024-09-24 13:00] VITALS: BP 150/77; PULSE 69; RESP 18; TEMP 98.1; O2SAT 96
--- NOTE | 2024-09-24 13:34 | PRN ---
Misceleneous Note Note Note peer to peer done with [facility] (09/23/24) and [facility] (09/24/24) pending bed FABRICIO ANTHONY MD Sep 24, 2024 13:34
[2024-09-24] MEDS: cefTRIAXone 1GM/50ML D5W 50 ML IV ONE (15:12)
[2024-09-24] MEDS ORDERED: VANCOMYCIN PER PHARMACY 0 MG IV ONE (15:15)
[2024-09-24] MEDS: VANCOMYCIN 1.5GM/300ML 300 ML IV ONE (15:15)
[2024-09-24] MEDS ORDERED: ACYCLOVIR 5MG/KG Q8HR PER RX 0 ML IV ONE (15:15)
[2024-09-24] MEDS: ACYCLOVIR SOD IV ONE (15:30)
[2024-09-24] MEDS: D5W 5% IV ONE (15:30)
[2024-09-24 16:05] VITALS: BP 135/77; PULSE 76; TEMP 36.7
--- NOTE | 2024-09-24 16:38 | DVHPN2 ---
Assessment/Plan Assessment/Plan progress note 53 yo M with ESRD on HD, recurrent admission for overload and hyperk, epilepsy, schizophrenia, left eye blindness, HTN admitted for seizure and sudden onset R eye pain and blindness. Patient was seen by neuro, and decision made to transfer to [facility]. Patient is accepted to [facility] pending bed availability. Patient will continue reg HD in the mean time. CT head with no old strokes. seen during rounds. have bed in R, pending transfer. dc orders in. per nephro plan for HD thursday phsyical exam disheveld anisokoria likely 2/2 left eye blindness, no redness aox4 ctab s1 s2 irregular abdomen soft no le edema labs ekg imaging reviewed assessment and plan Acute right eye blindness need higher level of care for ophthalmology Breakthrough seizures currently on Keppra Epilepsy Diabetes mellitus type 2 Hypertension Dyslipidemia End-stage renal disease on hemodialysis Schizophrenia Left eye blindness Recent history of shingles pending bed in [facility] MRI, EEG seen by neuro HD per renal resume home meds lokelma, repeat K diet renal dvt ppx ac full code Plan discussed with: Patient My Orders Orders - FABRICIO ANTHONY MD Procedure Category Date Status Time Imaging Transfer ORDERS 09/24/24 Transmitted Request 15:11 Date of Service: Sep 24, 2024 Billing Provider: FABRICIO ANTHONY MD Common Visit Codes: [id number] INP/OBS CARE(HIGH) FABRICIO ANTHONY MD Sep 24, 2024 16:38
[2024-09-24 17:00] VITALS: BP 128/67; PULSE 80; RESP 18; TEMP 98.5; O2SAT 97
[2024-09-24 21:00] VITALS: BP 132/75; PULSE 86; RESP 18; TEMP 98.2; O2SAT 94
== END 2024-09-24 21:08 | disposition short-term general hospital (02) | DRG 53 ==
LOC: EDBD 03:47 → ER 03:47 → EDUNIT# 03:47 → OVERFLOW 08:25 → WEST WING 09-17 01:20
PROVIDERS: ADMIT Student in an Organized Health Care Education/Training Program; ATTEND Student in an Organized Health Care Education/Training Program
PROC: 5A1D70Z Performance of Urinary Filtration, Intermittent, Less than 6 Hours Per Day (ICD-10-PCS; principal; 2024-09-16)
PROC: 5A1D70Z Performance of Urinary Filtration, Intermittent, Less than 6 Hours Per Day (ICD-10-PCS; 2024-09-19)
PROC: 5A1D70Z Performance of Urinary Filtration, Intermittent, Less than 6 Hours Per Day (ICD-10-PCS; 2024-09-21)
DX: G40.909 Epilepsy, unspecified, not intractable, without status epilepticus (principal); I13.2 Hypertensive heart and chronic kidney disease with heart failure and with stage 5 chronic kidney disease, or end stage renal disease; N18.6 End stage renal disease; E11.22 Type 2 diabetes mellitus with diabetic chronic kidney disease; I69.354 Hemiplegia and hemiparesis following cerebral infarction affecting left non-dominant side; D64.9 Anemia, unspecified; I50.9 Heart failure, unspecified; Z99.2 Dependence on renal dialysis; F20.9 Schizophrenia, unspecified; I16.1 Hypertensive emergency; Z20.822 Contact with and (suspected) exposure to COVID-19; E87.5 Hyperkalemia; I48.91 Unspecified atrial fibrillation; E78.5 Hyperlipidemia, unspecified; H54.8 Legal blindness, as defined in USA; F17.210 Nicotine dependence, cigarettes, uncomplicated; N28.9 Disorder of kidney and ureter, unspecified; Z86.19 Personal history of other infectious and parasitic diseases; Z78.9 Other specified health status; Z88.0 Allergy status to penicillin; Z88.1 Allergy status to other antibiotic agents; Z71.6 Tobacco abuse counseling
CPT/HCPCS: 36415; 70450; 70540; 70551; 71045; 80048; 80053; 81001; 82542; 82962; 83735; 84484; 85025; 85652; 86141; 87081; 87340; 87426; 90935; 93005; 96365; 96375; 99291; G0378; J1642; J1815; J2405; J7060

== ENCOUNTER 2024-10-09 16:50 | Inpatient (IN) | payer MEDICAID ==
[~2024-10-09] VITALS: Ht 182.9 cm; Wt 83.2 kg
[2024-10-09 21:00] VITALS: BP 132/79; PULSE 68; RESP 17; TEMP 98; O2SAT 97
[2024-10-09] MEDS ORDERED: DEXTROSE (50%) 50ML SYRG IV PRN (22:30)
[2024-10-09] MEDS ORDERED: ONDANSETRON HCL 4 MG/2 ML VIAL IV PRN (22:30)
[2024-10-10 01:00] VITALS: BP 155/82; PULSE 64; RESP 18; TEMP 98; O2SAT 99
[2024-10-10] MEDS: ACETAMINOPHEN 325 MG TAB PO PRN (02:06)
[2024-10-10 04:12] LABS: Albumin 4.6 g/dL (3.2-4.8); Alkaline Phosphatase 102 U/L (46-116); Anion Gap 15 (5-15); BUN/Creatinine Ratio 6.0 (10.0-20.0); Calcium 9.7 mg/dL (8.7-10.4); Carbon Dioxide 20 mmol/L (20-31); Chloride 103 mmol/L (98-107); Potassium 5.1 mmol/L (3.5-5.1); Sodium 138 mmol/L (136-145); Total Protein 7.0 g/dL (5.7-8.2)
[2024-10-10 04:25] LABS: Hematocrit 31.1 % (41.0-53.0); Hemoglobin 10.5 g/dL (13.5-17.5); Mean Corpuscular Hemoglobin 30.9 pg (28.0-32.0); Mean Corpuscular Volume 91.8 fL (80.0-100.0); Nucleated Red Blood Cells % 0.1 %
--- NOTE | 2024-10-10 04:33 | DVHHP2 ---
History of Present Illness Reason for Visit: Vision loss History of Present Illness 53-year-old male transferred from [facility] for continuity of care and disposition. Patient initially presented to [facility] with complaints of new onset right-sided vision loss. Patient was transferred for higher level of care and ophthalmology consultation. Patient was placed in multiple medications an outside facility including Diamox, cosopt, brimonidine and atropine post [employer] procedure 10/07. Patient being transferred with improvement to right eye vision in stable condition. Patient currently reports having only a minor frontal headache. No other acute complaints reported. Past Medical History End-stage renal disease, AFib, CHF, hypertension, schizophrenia, CVA with left hemiparesis and left eye blindness Past Surgical History Dialysis access Family History Noncontributory Smoke: No ALCOHOL: none Drugs: None Lives: with Family Review of Systems Review of Systems Review of systems are currently negative otherwise addressed in HPI. Allergies: Coded Allergies: Erythromycin (Verified Allergy, Unknown, 04/17/24) Penicillins (Verified Allergy, Unknown, 04/17/24) Medications Current Medications Medications Dose Ordered Sig/Misty Route Start Time Stop Time Status Last Admin Dose Admin Bumetanide 1 mg DAILY PO 10/10/24 10:00 Carvedilol 12.5 mg Q12HR PO 10/10/24 10:00 Apixaban 2.5 mg BID PO 10/10/24 10:00 UNV Hydralazine HCl 25 mg Q8HR PO 10/10/24 06:00 Levetiracetam 1,000 mg BID PO 10/10/24 10:00 Ondansetron HCl 4 mg Q4HP PRN IV 10/09/24 22:30 Acetaminophen 650 mg Q6HP PRN PO 10/09/24 22:30 10/10/24 02:06 650 MG Diagnostic Test (Pha) 1 strip ACHS 10/10/24 07:00 Insulin Human Regular ACHS SC 10/10/24 07:00 Dextrose 50 ml UD PRN IV 10/09/24 22:30 Exam Vital Signs Vital Signs Date Time Temp Pulse Resp B/P (MAP) Pulse Ox O2 Delivery O2 Flow Rate FiO2 10/09/24 22:04 Room Air* 0 21 10/09/24 21:00 98.0 68 17 132/79 (96) 97 98.0 Exam Gen: 53-year-old male in no apparent distress. Skin: Warm, dry, normal color and texture, no rash. HEENT: Normocephalic atraumatic, mucous membranes moist and pink. Neck: Cervical and supraclavicular nodes normal without enlargement, trachea is midline, thyroid gland is normal without masses. Pulmonary: Clear to auscultation and percussion bilaterally. Cardiac: Regular rate and rhythm. No murmur Abdomen: Soft, nontender, nondistended, bowel sounds present all 4 quadrants, no guarding, no rigidity, no organomegaly. Extremities: No cyanosis, clubbing, no edema Neuro: Cranial nerves II through XII grossly intact, normal affect and speech, no focal motor deficits. Labs/Xrays Labs Test 10/10/24 03:39 Range/Units White Blood Count 10.6 4.4-10.8 10^3/uL Red Blood Count 3.38 L 4.5-5.90 10^6/uL Hemoglobin 10.5 L 13.5-17.5 g/dL Hematocrit 31.1 L 41.0-53.0 % Mean Corpuscular Volume 91.8 80.0-100.0 fL Mean Corpuscular Hemoglobin 30.9 28.0-32.0 pg Mean Corpuscular Hemoglobin Concent 33.7 32.0-36.0 g/dL Red Cell Distribution Width 17.7 H 11.8-14.3 % Platelet Count 255 140-450 10^3/uL Mean Platelet Volume 8.0 6.9-10.8 fL Neutrophils (%) (Auto) 68.0 37.0-80.0 % Lymphocytes (%) (Auto) 18.7 10.0-50.0 % Monocytes (%) (Auto) 9.3 0.0-12.0 % Eosinophils (%) (Auto) 3.7 0.0-7.0 % Basophils (%) (Auto) 0.3 0.0-2.0 % Neutrophils # (Auto) 7.2 1.6-8.6 10 ^3/uL Lymphocytes # (Auto) 2.0 0.4-5.4 10 ^3/uL Monocytes # (Auto) 1.0 0-1.3 10 ^3/uL Eosinophils # (Auto) 0.4 0-0.8 10 ^3/uL Basophils # (Auto) 0 0-0.2 10 ^3/uL Nucleated Red Blood Cells 0.1 % SEPSIS Sepsis Screen Physician Orders Mrsa Screen (10/09/24 22:29) Complete Blood Count (10/09/24 22:25) Comprehensive Metabolic Panel (10/09/24 22:25) Troponin-I Hs (10/09/24 22:25) Bumetanide Tablet (Bumex Tablet) (10/10/24 10:00) Carvedilol Tablet (Coreg Tablet) (10/10/24 10:00) Apixaban (Eliquis) (10/10/24 10:00) Hydralazine Hcl Tablet (Apresoline Table (10/10/24 06:00) Levetiracetam Tablet (Keppra Tablet) (10/10/24 10:00) Admit (10/09/24 22:25) Renal Standard(2gna,3gk,Lopho) (10/10/24 Breakfast) Ondansetron Hcl (Zofran) (10/09/24 22:30) Condition: Stable (10/09/24 22:25) Acetaminophen Tablet (Tylenol Tablet) (10/09/24 22:30) Bedrest With Bathroom Privileg (10/09/24 22:25) Glucose Blood (Accu-Chek Comfort Curve T (10/10/24 07:00) Insulin R (Human) (Insulin R) (10/10/24 07:00) Dextrose 50% Syringe (10/09/24 22:30) *[facility] (10/09/24 22:33) Vital Signs Date Time Temp Pulse Resp B/P (MAP) Pulse Ox O2 Delivery O2 Flow Rate FiO2 10/09/24 22:04 Room Air* 0 21 10/09/24 21:00 98.0 68 17 132/79 (96) 97 98.0 Laboratory Tests Test 10/10/24 03:39 White Blood Count 10.6 10^3/uL (4.4-10.8) Medications Medications Dose Ordered Sig/Misty Route Start Time Stop Time Status Last Admin Dose Admin Acetaminophen 650 mg Q6HP PRN PO 10/09/24 22:30 10/10/24 02:06 650 MG Assessment/Plan Assessment/Plan Assessment Acute right eye blindness, improving End-stage renal disease, dialysis dependent Hypertension Schizophrenia Plan Admit the patient to Med surge to the hospitalist Patient is to follow up with [facility] ophthalmology as outpatient Resume home medications Continue treatment per orders. Plan discussed with: Patient My Orders Orders - LUIS MCLAUGHLIN Procedure Category Date Status Time Complete Blood Count LAB 10/09/24 In Process 22:25 Comprehensive LAB 10/09/24 In Process Metabolic Panel 22:25 Troponin-I Hs LAB 10/09/24 In Process 22:25 Bumetanide Tablet PHA 10/10/24 In Process (Bumex Tablet) 10:00 Carvedilol Tablet PHA 10/10/24 In Process (Coreg Tablet) 10:00 Apixaban (Eliquis) PHA 10/10/24 Pending 10:00 Hydralazine Hcl PHA 10/10/24 In Process Tablet (Apresoline 06:00 Levetiracetam Tablet PHA 10/10/24 In Process (Keppra Tablet) 10:00 Admit ADMIT 10/09/24 Transmitted 22:25 Renal DIET 10/10/24 Transmitted Standard(2gna,3gk,Lopho) Breakfast Ondansetron Hcl PHA 10/09/24 In Process (Zofran) 22:30 Condition: Stable YOLY 10/09/24 In Process 22:25 Acetaminophen Tablet PHA 10/09/24 In Process (Tylenol Tablet) 22:30 Bedrest With Bathroom YOLY 10/09/24 In Process Privileg 22:25 Glucose Blood PHA 10/10/24 In Process (Accu-Chek Comfort 07:00 Insulin R (Human) PHA 10/10/24 In Process (Insulin R) 07:00 Dextrose 50% Syringe PHA 10/09/24 In Process 22:30 *Dr[facility] CONS 10/09/24 Transmitted -[place] 22:33 Date of Service: Oct 10, 2024 Billing Provider: LUIS MCLAUGHLIN Common Visit Codes: [id number] INP/OBS CARE (MOD) LUIS MCLAUGHLIN Oct 10, 2024 04:33
[2024-10-10 04:38] LABS: Alanine Aminotransferase < 9 U/L (7-40); Bilirubin, Total < 0.2 mg/dL (0.2-1.0); Blood Urea Nitrogen 67 mg/dL (9-23); Glucose 158 mg/dL (74-106)
[2024-10-10 05:00] VITALS: BP 137/74; PULSE 61; RESP 19; TEMP 97.8; O2SAT 99
[2024-10-10] MEDS: ACCU-CHEK COMFORT CURVE STRIP VI SCH (06:09)
[2024-10-10] MEDS: InsuLIN REG 1unit/0.01ml Soln (100units/ml) SC SCH (06:14)
[2024-10-10 09:00] VITALS: BP 119/61; PULSE 79; RESP 17; TEMP 97.7; O2SAT 95
[2024-10-10] MEDS: CARVEDILOL 12.5 MG TAB PO SCH (10:03)
[2024-10-10] MEDS: BUMETANIDE 1 MG TAB PO SCH (10:03)
[2024-10-10] MEDS: levETIRAcetam 500 MG TAB PO SCH (10:03)
[2024-10-10] MEDS: APIXABAN 2.5 MG TAB PO SCH (10:04)
[2024-10-10] MEDS ORDERED: SODIUM CHL 0.9% 1000 ML BAG XX ONE (11:30)
--- NOTE | 2024-10-10 11:42 | DVHINCON2 ---
Date of service: Oct 10, 2024 Referring Physician hospitalist Reason for Consultation End-stage renal disease History of Present Illness 53-year-old male with past medical history of schizophrenia, hypertension, end- stage renal disease on hemodialysis patient had prolonged hospitalization here was transferred to an outside hospital due to vision loss requiring ophthalmology evaluation. He has now returned as a transfer back to this hospital for acute management. Nephrology consulted for dialysis Past Medical History ESRD Allergies: Coded Allergies: Erythromycin (Verified Allergy, Unknown, 04/17/24) Penicillins (Verified Allergy, Unknown, 04/17/24) Home Meds Active Scripts Acyclovir (Acyclovir) 400 Mg Tab, 800 MG PO TID for 14 Days, #84 TAB Prov:HILDA MURPHY MD 09/05/24 Isosorbide Dinitrate (Isosorbide Dinitrate) 10 Mg Tab, 2 TAB PO TID@0600,1200,1800 for 5 Days, #30 TAB Prov:BERTRAM LARKIN [facility] 08/23/24 Hydralazine Hcl (Hydralazine Hcl) 25 Mg Tab, 25 MG PO TID for 90 Days, #270 TAB Prov:BERTRAM LARKIN [facility] 08/23/24 Carvedilol (COREG) 12.5 Mg Tab, 12.5 MG PO Q12HR for 30 Days, #60 TAB Prov:BERTRAM LARKIN [facility] 08/23/24 Apixaban Base (ELIQUIS) 2.5 Mg Tab, 2.5 MG PO BID for 30 Days, #60 TAB Prov:BERTRAM LARKIN [facility] 08/23/24 Atorvastatin Calcium (Lipitor) 40 Mg Tab, 40 MG PO DAILY for 40 Days, #40 TAB Prov:BERTRAM LARKIN 08/23/24 Bumetanide (Bumetanide) 1 Mg Tab, 1 TAB PO DAILY for 30 Days, #30 TAB Prov:BERTRAM LARKIN [facility] 08/23/24 Levetiracetam (Levetiracetam) 1,000 Mg Tab, 1 TAB PO BID for 30 Days, #60 TAB Prov:BERTRAM LARKIN 08/23/24 Hydrocodone-Acetaminophen (Hydrocodone Bitartrate/AC 5-325 mg) 1 Tab Tab, 1 TAB PO Q6HP PRN, #20 TAB Prov:MYRIAM CORNELIUS MD 08/06/24 Reported Medications Levetiracetam (Levetiracetam) 750 Mg Tab, 1 TAB PO GERARD for 30 Days, #60 TAKE 1 TABLET BY MOUTH ALONG WITH 1000 MG TWICE DAILY ON DIALYSIS DAYS. 08/16/24 Quetiapine Fumerate (QUETIAPINE FUMARATE) 50 Mg Tab, 1 TAB PO 06/07/24 Insulin Lispro (Insulin Lispro Thai Kwi) 100 Unit/Ml Inj 06/07/24 Olopatadine HCl (Olopatadine Hydrochloride) 0.1 % Melchor, 1 DROP LEFTEYE BID 06/07/24 Current Medications Current Medications Medications (Trade) Dose Ordered Sig/Misty Route PRN Reason Start Time Stop Time Status Last Admin Bumetanide (Bumex Tablet) 1 mg DAILY PO 10/10/24 10:00 10/10/24 10:03 Carvedilol (Coreg Tablet) 12.5 mg Q12HR PO 10/10/24 10:00 10/10/24 10:03 Apixaban (Eliquis) 2.5 mg BID PO 10/10/24 10:00 10/10/24 10:04 Hydralazine HCl (Apresoline Tablet) 25 mg Q8HR PO 10/10/24 06:00 10/10/24 06:06 Levetiracetam (Keppra Tablet) 1,000 mg BID PO 10/10/24 10:00 10/10/24 10:03 Ondansetron HCl (Zofran) 4 mg Q4HP PRN IV NAUSEA / VOMITING 10/09/24 22:30 Acetaminophen (Tylenol Tablet) 650 mg Q6HP PRN PO PAIN SCALE 1-3 OR TEMP>100.4 10/09/24 22:30 10/10/24 02:06 Diagnostic Test (Pha) (Accu-Chek Comfort Curve T) 1 strip ACHS 10/10/24 07:00 10/10/24 11:32 Insulin Human Regular (InsuLIN R) ACHS SC 10/10/24 07:00 10/10/24 11:32 Dextrose 50 ml UD PRN IV Blood Sugar LESS THAN 60 10/09/24 22:30 Family History: Patient reports no known family medical history. H&P Exam Vital Signs/I&O Vital Sign Date Time Temp Pulse Resp B/P (MAP) Pulse Ox O2 Delivery O2 Flow Rate FiO2 10/10/24 10:03 79 119/61 10/10/24 08:05 Room Air* 0 21 10/10/24 05:00 97.8 19 99 97.8 Intake and Output 10/09/24 10/10/24 19:00 07:00 Intake Total 150 ml Balance 150 ml Intake Oral 150 ml # Bowel Movements 3 Physical Exam Middle-aged male Nonacute distress Abdomen is soft No pitting edema Labs/Diagnostic Data Labs/Diagnostic Data Laboratory Tests Test 10/10/24 11:22 10/10/24 06:08 10/10/24 03:39 Range/Units POC Glucose 180 H 163 H 70-106 mg/dl White Blood Count 10.6 4.4-10.8 10^3/uL Red Blood Count 3.38 L 4.5-5.90 10^6/uL Hemoglobin 10.5 L 13.5-17.5 g/dL Hematocrit 31.1 L 41.0-53.0 % Mean Corpuscular Volume 91.8 80.0-100.0 fL Mean Corpuscular Hemoglobin 30.9 28.0-32.0 pg Mean Corpuscular Hemoglobin Concent 33.7 32.0-36.0 g/dL Red Cell Distribution Width 17.7 H 11.8-14.3 % Platelet Count 255 140-450 10^3/uL Mean Platelet Volume 8.0 6.9-10.8 fL Neutrophils (%) (Auto) 68.0 37.0-80.0 % Lymphocytes (%) (Auto) 18.7 10.0-50.0 % Monocytes (%) (Auto) 9.3 0.0-12.0 % Eosinophils (%) (Auto) 3.7 0.0-7.0 % Basophils (%) (Auto) 0.3 0.0-2.0 % Neutrophils # (Auto) 7.2 1.6-8.6 10 ^3/uL Lymphocytes # (Auto) 2.0 0.4-5.4 10 ^3/uL Monocytes # (Auto) 1.0 0-1.3 10 ^3/uL Eosinophils # (Auto) 0.4 0-0.8 10 ^3/uL Basophils # (Auto) 0 0-0.2 10 ^3/uL Nucleated Red Blood Cells 0.1 % Sodium Level 138 136-145 mmol/L Potassium Level 5.1 3.5-5.1 mmol/L Chloride Level 103 98-107 mmol/L Carbon Dioxide Level 20 20-31 mmol/L Anion Gap 15 5-15 Blood Urea Nitrogen 67 H 9-23 mg/dL Creatinine 11.23 *H 0.700-1.30 mg/dL Glomerular Filtration Rate Calc 5 >90 mL/min BUN/Creatinine Ratio 6.0 L 10.0-20.0 Serum Glucose 158 H 74-106 mg/dL Calcium Level 9.7 8.7-10.4 mg/dL Total Bilirubin < 0.2 L 0.2-1.0 mg/dL Aspartate Amino Transferase (AST) 8 L 13-40 U/L Alanine Aminotransferase (ALT) < 9 7-40 U/L Alkaline Phosphatase 102 46-116 U/L Troponin I High Sensitivity 8 </=54 ng/L Total Protein 7.0 5.7-8.2 g/dL Albumin 4.6 3.2-4.8 g/dL Assessment End-stage renal disease Hypotension Hyperkalemia Right vision loss History seizure disorder Medications as per ophthalmology Hemodialysis today metabolic control 2K bath due to elevated potassium Continue renal diet Continue home medications Avoid hypotension Rest of care as per primary medical team Plan discussed with: Patient SHAHID GARSIA MD Oct 10, 2024 11:42
[2024-10-10 12:22] LABS: INR 0.97 (0.9-1.15); Partial Thromboplastin Time 25.9 SEC (24.5-34.5); Prothrombin Time 10.3 sec (9.3-11.8)
[2024-10-10 13:00] VITALS: BP 138/74; PULSE 63; RESP 16; TEMP 97.6; O2SAT 96
--- NOTE | 2024-10-10 13:17 | DVH ---
EXAM: XY CHEST XRAY 1 VIEW Indication: SOB Technique: Single frontal view of the chest was obtained Comparison: XY CHEST XRAY 1 VIEW on DOS: 09/16/24, XY CHEST PORTABLE on DOS: 08/31/24, XY CHEST XRAY 1 VIEW on DOS: 08/29/24, XY CHEST XRAY 1 VIEW on DOS: 08/01/24, XY CHEST XRAY 1 VIEW on DOS: 07/27/24 FINDINGS: Lines and Tubes: Right chest port tip projects over the cavoatrial junction Lungs: No focal consolidation. Pleura: No effusion. No pneumothorax. Cardiomediastinal contours: Unremarkable Bones: No acute osseous abnormality. IMPRESSION: No acute cardiopulmonary disease.
[2024-10-10 15:03] LABS: Hepatitis B Surface Antigen Negative (Negative); Hepatitis C Antibody Negative (Negative)
--- NOTE | 2024-10-10 15:18 | DVHPNRES ---
Progress Note Date Seen: Oct 10, 2024 Resident Creating Document: DANNI JOSÉ RESIDENT Medical Necessity Reason Pt with a Central, PICC or Fol: No Subjective Review of Systems 53-year-old male transferred from [facility] so continue active care and disposition. Patient had come to [facility] before with complains of new onset right-sided vision loss and he was transferred to [facility] for higher level of care and ophthalmologic consult. The patient was diagnosed with acute glaucoma versus proliferative diabetic retinopathy and given several medications such as Diamox, Cosopt, brimonidine, atropine post CBC procedure on the September. Patient has been transferred with improvement in his right eye vision. He reports that he has lightheaded and pain in his right eye still. PMH: End-stage renal disease on hemodialysis, HFrEF %, paroxysmal AFib, schizophrenia, seizure, type 2 diabetes mellitus, hypertension, blindness in the left eye due to stroke, PVD Past surgical history: Hemodialysis Family history: Reviewed and noncontributory to this case Social history: Patient denies smoking, alcohol or taking any other drugs he lives with his family. Allergies: Erythromycin, penicillin ROS: Patient was seen and examined by me in the bedside. Overnight events reviewed. Patient is drowsy. He complains of pain in his right eye still. Rest of the ROS is negative Objective vital signs Vital Sign Date Time Temp Pulse Resp B/P (MAP) Pulse Ox O2 Delivery O2 Flow Rate FiO2 10/10/24 14:11 138/61 10/10/24 11:03 63 10/10/24 08:05 Room Air* 0 21 10/10/24 05:00 97.8 19 99 97.8 Total Intake and Output 10/09/24 10/09/24 10/10/24 15:00 23:00 07:00 Intake Total 150 ml Balance 150 ml medications Current Medications Medications Dose Ordered Sig/Misty Route Start Time Stop Time Status Last Admin Dose Admin Bumetanide 1 mg DAILY PO 10/10/24 10:00 10/10/24 10:03 1 MG Carvedilol 12.5 mg Q12HR PO 10/10/24 10:00 10/10/24 10:03 12.5 MG Apixaban 2.5 mg BID PO 10/10/24 10:00 10/10/24 10:04 2.5 MG Hydralazine HCl 25 mg Q8HR PO 10/10/24 06:00 10/10/24 14:11 25 MG Levetiracetam 1,000 mg BID PO 10/10/24 10:00 10/10/24 10:03 1,000 MG Ondansetron HCl 4 mg Q4HP PRN IV 10/09/24 22:30 Acetaminophen 650 mg Q6HP PRN PO 10/09/24 22:30 10/10/24 02:06 650 MG Diagnostic Test (Pha) 1 strip ACHS 10/10/24 07:00 10/10/24 11:32 1 STRIP Insulin Human Regular ACHS SC 10/10/24 07:00 10/10/24 11:32 3 UNITS Dextrose 50 ml UD PRN IV 10/09/24 22:30 Examination Pt is lying on bed General Appearance: Alert, Oriented X3, Cooperative, Not in acute distress HEENT: Atraumatic, Mucous membranes moist/pink, right eye on prying open is still red Respiratory: Clear to auscultation, Normal air movement, No added sounds Cardiovascular: Regular rate, Normal S1, Normal S2, No murmurs Abdominal: Active bowel sounds, Soft, no distention, no tenderness Extremities: No edema, Normal pulses, No tenderness/swelling Skin: No Significant rash, except past surgical scars Neuro: Normal speech, sensorimotor deficits none Psych/Mental Status: Mental status NL, Mood NL Nurse was there as school examiner during examination laboratory and microbiology Laboratory Tests 10/10/24 03:39 Test 10/10/24 03:39 Range/Units Serum Glucose 158 H 74-106 mg/dL Labs and/or images reviewed: Labs reviewed by me, Image(s) reviewed by me Problem List/Assessment/Plan Problem List/Assessment/Plan # Right sided acute eye pain/vision loss likely from acute glaucoma versus proliferative diabetic retinopathy -Continue medication given at [facility] -Monitor patient -Diamox, Cosopt, brimonidine, atropine # Chronic HFrEF (EF 40%) # medication non-adherence; # Paroxysmal Atrial Fibrillation (currently in sinus rhythm) with a secondary hypercoagulable state, on Eliquis - Monitor for rate/rhythm changes on telemetry. - Continue guideline-directed medical therapy (GDMT): carvedilol, bumetanide. - Monitor weight, I/Os, BNP, and renal function. - monitor PT/PTT # ESRD on Hemodialysis - Nephrology consult for dialysis coordination. - correct electrolyte imbalance - monitor lab # Type 2 Diabetes Mellitus (insulin-dependent) - Monitor blood glucose. - Sliding scale - HbA1c of 8.1% # History of Seizure - Continue Keppra 1000 mg BID. - seizure precautions # Schizophrenia # Medication adherence unclear. - Continue quetiapine 50 mg PO. - Psychiatry consult if behavioral concerns arise. # Medication Non-Adherence / Drug Use - counseled regarding this was benefits of medication adherence # Dyslipidemia - Continue atorvastatin PO. GI prophylaxis: not indicated DVT prophylaxis: ambulating Diet: regular Goals of care discussed with the patient for more than 27 minutes: Full code status Case discussed with Dr. Ross, patient and nurse. Plan discussed with: Patient, Other (rn) My Orders My Orders Orders - DANNI JOSÉ Procedure Category Date Status Time Urinalysis LAB 10/10/24 Logged 09:05 Drug Screen LAB 10/10/24 Logged 09:05 Chest Xray 1 View XY 10/10/24 Resulted 09:05 Date of Service: Oct 10, 2024 Billing Provider: PEGGY ROSS MD Common Visit Codes: [id number] INP/OBS CARE(HIGH) DANNI JOSÉ RESIDENT Oct 10, 2024 15:18 PEGGY ROSS MD Oct 10, 2024 22:48
[2024-10-10 17:00] VITALS: BP 107/55; PULSE 60; RESP 16; TEMP 97.6; O2SAT 97
[2024-10-10 21:00] VITALS: BP 137/66; PULSE 79; RESP 17; TEMP 97.4; O2SAT 98
[2024-10-11 05:00] VITALS: BP 167/72; PULSE 58; RESP 17; TEMP 97.5; O2SAT 99
[2024-10-11 07:18] LABS: Hematocrit 32.3 % (41.0-53.0); Hemoglobin 11.0 g/dL (13.5-17.5); Mean Corpuscular Hemoglobin 31.0 pg (28.0-32.0); Mean Corpuscular Volume 91.0 fL (80.0-100.0); Nucleated Red Blood Cells % 0.0 %
[2024-10-11 07:27] LABS: Anion Gap 13 (5-15); Carbon Dioxide 28 mmol/L (20-31); Potassium 4.4 mmol/L (3.5-5.1); Sodium 138 mmol/L (136-145)
[2024-10-11 07:33] LABS: BUN/Creatinine Ratio 5.4 (10.0-20.0)
[2024-10-11 07:35] LABS: Blood Urea Nitrogen 43 mg/dL (9-23); Calcium 10.6 mg/dL (8.7-10.4); Chloride 97 mmol/L (98-107); Glucose 126 mg/dL (74-106)
[2024-10-11 08:32] VITALS: BP 122/69; PULSE 66; RESP 16; TEMP 98.9; O2SAT 98
[2024-10-11 12:30] VITALS: BP 141/73; PULSE 69; RESP 16; TEMP 98.7; O2SAT 96
[2024-10-11] MEDS ORDERED: BRIM0.1S3 OP (12:51)
[2024-10-11] MEDS ORDERED: DORZ1SOL3 OP (12:51)
[2024-10-11 13:03] VITALS: BP 122/69; PULSE 66; RESP 16; TEMP 98; O2SAT 95
--- NOTE | 2024-10-11 13:32 | DVHDSRES ---
Discharge Summary Date of Admission Resident Creating Document: DANNI JOSÉ RESIDENT Oct 09, 2024 at 20:58 Date of Discharge: Oct 11, 2024 Admitting Diagnosis # Right sided acute eye pain/vision loss likely from acute glaucoma versus proliferative diabetic retinopathy Labs/Diagnostic Data: Laboratory Results Test 10/11/24 11:37 10/11/24 06:30 10/10/24 11:50 10/10/24 03:39 POC Glucose 173 mg/dl (70-106) White Blood Count 7.5 10^3/uL (4.4-10.8) Red Blood Count 3.55 10^6/uL (4.5-5.90) Hemoglobin 11.0 g/dL (13.5-17.5) Hematocrit 32.3 % (41.0-53.0) Mean Corpuscular Volume 91.0 fL (80.0-100.0) Mean Corpuscular Hemoglobin 31.0 pg (28.0-32.0) Mean Corpuscular Hemoglobin Concent 34.1 g/dL (32.0-36.0) Red Cell Distribution Width 17.2 % (11.8-14.3) Platelet Count 271 10^3/uL (140-450) Mean Platelet Volume 7.6 fL (6.9-10.8) Neutrophils (%) (Auto) 64.1 % (37.0-80.0) Lymphocytes (%) (Auto) 24.2 % (10.0-50.0) Monocytes (%) (Auto) 8.2 % (0.0-12.0) Eosinophils (%) (Auto) 2.9 % (0.0-7.0) Basophils (%) (Auto) 0.6 % (0.0-2.0) Neutrophils # (Auto) 4.8 10 ^3/uL (1.6-8.6) Lymphocytes # (Auto) 1.8 10 ^3/uL (0.4-5.4) Monocytes # (Auto) 0.6 10 ^3/uL (0-1.3) Eosinophils # (Auto) 0.2 10 ^3/uL (0-0.8) Basophils # (Auto) 0 10 ^3/uL (0-0.2) Nucleated Red Blood Cells 0.0 % Sodium Level 138 mmol/L (136-145) Potassium Level 4.4 mmol/L (3.5-5.1) Chloride Level 97 mmol/L (98-107) Carbon Dioxide Level 28 mmol/L (20-31) Anion Gap 13 (5-15) Blood Urea Nitrogen 43 mg/dL (9-23) Creatinine 7.95 mg/dL (0.700-1.30) Glomerular Filtration Rate Calc 7 mL/min (>90) BUN/Creatinine Ratio 5.4 (10.0-20.0) Serum Glucose 126 mg/dL (74-106) Calcium Level 10.6 mg/dL (8.7-10.4) Erythrocyte Sedimentation Rate 42 mm/hr (0-20) Prothrombin Time 10.3 sec (9.3-11.8) Prothrombin Time INR 0.97 (0.9-1.15) Activated Partial Thromboplast Time 25.9 SEC (24.5-34.5) Total Bilirubin < 0.2 mg/dL (0.2-1.0) Aspartate Amino Transferase (AST) 8 U/L (13-40) Alanine Aminotransferase (ALT) < 9 U/L (7-40) Alkaline Phosphatase 102 U/L (46-116) Troponin I High Sensitivity 8 ng/L (</=54) Total Protein 7.0 g/dL (5.7-8.2) Albumin 4.6 g/dL (3.2-4.8) Hepatitis A IgM Antibody Negative Hepatitis B Surface Antigen Negative (Negative) Hepatitis B Core IgM Antibody Negative (Negative) Hepatitis C Antibody Negative (Negative) Other Laboratory Tests 10/11/24 06:30 Brief Hx & Hospital Course: 53-year-old male transferred from [facility] so continue active care and disposition. Patient had come to [facility] before with complains of new onset right-sided vision loss and he was transferred to [facility] for higher level of care and ophthalmologic consult. The patient was diagnosed with acute glaucoma versus proliferative diabetic retinopathy and given several medications such as Diamox, Cosopt, brimonidine, atropine post CBC procedure on the September. Patient has been transferred with improvement in his right eye vision. He reports that he has lightheaded and pain in his right eye still. PMH: End-stage renal disease on hemodialysis, HFrEF %, paroxysmal AFib, schizophrenia, seizure, type 2 diabetes mellitus, hypertension, blindness in the left eye due to stroke, PVD Past surgical history: Hemodialysis Family history: Reviewed and noncontributory to this case Social history: Patient denies smoking, alcohol or taking any other drugs he lives with his family. Allergies: Erythromycin, penicillin Brief history of hospitalization: Patient had right-sided acute eye pain/ vision loss likely from acute glaucoma versus proliferative diabetic retinopathy. We continued medication given at [facility] for his eye- Diamox, Cosopt, brimonidine, atropine and we monitored the patient. For patient's chronic HFrEF 40% medical nonadherence, paroxysmal atrial fibrillation currently in sinus rhythm with secondary hypercoagulable state and Eliquis we monitor the rate and rhythm changes. we continued his carvedilol, bumetanide and monitored labs PT/PTT. Patient also had ESRD on hemodialysis nephrology consult was done and he had a dialysis yesterday on the 10 October 2024. Labs were monitored. Patient has insulin-dependent type 2 diabetes mellitus for which we monitored his blood glucose put him in sliding scale insulin. For patient's history of seizures we continued his Keppra 1000 mg b.i.d. and put seizure precautions. for patient's dyslipidemia we continued atorvastatin. Patient is now stable for discharge and he has been counseled regarding importance of adherence to his medications. Patient communicated understanding. He is being discharged on home medications and new medications for eye as prescribed Cosopt and brimonidine eye drops. Pt is lying on bed General Appearance: Alert, Oriented X3, Cooperative, Not in acute distress HEENT: Atraumatic, Mucous membranes moist/pink, right eye on prying open is still red, decreased vision Respiratory: Clear to auscultation, Normal air movement, No added sounds Cardiovascular: Regular rate, Normal S1, Normal S2, No murmurs Abdominal: Active bowel sounds, Soft, no distention, no tenderness Extremities: No edema, Normal pulses, No tenderness/swelling Skin: No Significant rash, except past surgical scars Neuro: Normal speech, sensorimotor deficits none Psych/Mental Status: Mental status NL, Mood NL Nurse was there as chairman & ceo during examination Operations or Procedures EXAM: XY CHEST XRAY 1 VIEW IMPRESSION:No acute cardiopulmonary disease. Condition at Discharge: Stable Final Diagnosis/Problems List # Right sided acute eye pain/vision loss likely from acute glaucoma versus proliferative diabetic retinopathy # Chronic HFrEF (EF 40%) # medication non-adherence; # Paroxysmal Atrial Fibrillation (currently in sinus rhythm) with a secondary hypercoagulable state, on Eliquis # ESRD on Hemodialysis # Type 2 Diabetes Mellitus (insulin-dependent) # History of Seizure # Schizophrenia # Medication adherence unclear. # Medication Non-Adherence / Drug Use # Dyslipidemia Discharge Disposition: Home Discharge Instruct/Medications Diet: Consistent carbohydrate, Cardiac 2g Na,low cholest Activity: No Restrictions, As Tolerated Follow Up/Referral: followup with PCP and Ophthalmology Medications: continue home medications and ophthalmic medications as given Scheduled Acyclovir (Acyclovir), 800 MG PO TID Apixaban Base (Eliquis), 2.5 MG PO BID Atorvastatin Calcium (Lipitor), 40 MG PO DAILY Brimonidine Tartrate (Alphagan P), 0.1 % OP TID Bumetanide (Bumetanide), 1 TAB PO DAILY Carvedilol (Coreg), 12.5 MG PO Q12HR Dorzolamide HCl-Timolol Maleat (Cosopt 2-0.5 %), 1 KEERTHI OP BID Hydralazine Hcl (Hydralazine Hcl), 25 MG PO TID Isosorbide Dinitrate (Isosorbide Dinitrate), 2 TAB PO TID@0600,1200,1800 Levetiracetam (Levetiracetam), 1 TAB PO GERARD, (Reported) Levetiracetam (Levetiracetam), 1 TAB PO BID Olopatadine HCl (Olopatadine Hydrochloride), 1 DROP LEFTEYE BID, (Reported) Scheduled PRN Hydrocodone-Acetaminophen (Hydrocodone Bitartrate/AC 5-325 mg), 1 TAB PO Q6HP PRN Miscellaneous Medications Insulin Lispro (Insulin Lispro Thai Kwi), (Reported) Quetiapine Fumerate (Quetiapine Fumarate), 1 TAB PO, (Reported) Discharge Statement: "Patient was advised to return to the ER or call 911 if any headaches, dizziness, shortness of breath, chest pain, abdominal pain, bleeding, fevers, or worsening of medical condition. Patient was counseled about treatment plan, medications, possible side effects, patientverbalized understanding. All questions were answered to the best of my ability. This discharge took greater then 30 minutes in planning, reviewing documentation, counseling the patient, and discussing with other team members." ASSESSMENT ASSESSMENT Assessment # right-sided acute eye pain/vision loss likely from acute glaucoma versus proliferative diabetic retinopathy # chronic HFrEF with ejection fraction 40% Medication nonadherence Date of Service: Oct 11, 2024 Billing Provider: PEGGY DIEZ MD Common Visit Codes: 78768-ZOB/OBS DISCH DAY >30min DANNI JOSÉ RESIDENT Oct 11, 2024 13:32 PEGGY DIEZ MD Oct 11, 2024 22:31
[2024-10-11 16:39] VITALS: BP 149/69; PULSE 61; RESP 18; TEMP 98.4; O2SAT 97
== END 2024-10-11 16:44 | disposition home or self-care (01) | DRG 82 ==
LOC: WEST WING 20:58
PROVIDERS: ADMIT Internal Medicine; ATTEND Internal Medicine
PROC: 5A1D70Z Performance of Urinary Filtration, Intermittent, Less than 6 Hours Per Day (ICD-10-PCS; principal; 2024-10-10)
DX: E11.3591 Type 2 diabetes mellitus with proliferative diabetic retinopathy without macular edema, right eye (principal); I13.2 Hypertensive heart and chronic kidney disease with heart failure and with stage 5 chronic kidney disease, or end stage renal disease; N18.6 End stage renal disease; D68.69 Other thrombophilia; I95.9 Hypotension, unspecified; I50.22 Chronic systolic (congestive) heart failure; I69.354 Hemiplegia and hemiparesis following cerebral infarction affecting left non-dominant side; H54.61 Unqualified visual loss, right eye, normal vision left eye; I48.0 Paroxysmal atrial fibrillation; E87.5 Hyperkalemia; F20.9 Schizophrenia, unspecified; G40.909 Epilepsy, unspecified, not intractable, without status epilepticus; H54.62 Unqualified visual loss, left eye, normal vision right eye; Z88.0 Allergy status to penicillin; Z88.1 Allergy status to other antibiotic agents; Z99.2 Dependence on renal dialysis; H40.9 Unspecified glaucoma
CPT/HCPCS: 36415; 71045; 80048; 80053; 80074; 82962; 84484; 85025; 85610; 85652; 85730; 90935; G0378; J1642; J1815

== ENCOUNTER 2024-10-28 17:31 | Emergency (ER) | payer MEDICAID ==
[~2024-10-28] VITALS: Ht 182.9 cm; Wt 88.1 kg
[~2024-10-28 17:31] MED LIST changes: +BRIM0.1S3 OP; +DORZ1SOL3 OP
--- NOTE | 2024-10-28 18:52 | ED.PDOC ---
History of Present Illness HPI Comments 53-year-old male with a history of end-stage renal disease on dialysis, blindness, AFib, CHF, hypertension, schizophrenia, CVA brought in by private car complaining of back pain. Patient states around 2:00 a.m. he lost his balance while attempting to get out of his wheelchair, fell and hit his back on a pillar on his porch. He denies any head injury or loss of consciousness. Patient states he went to dialysis today, but was having difficulty remaining in the dialysis chair due to back pain, so did not undergo dialysis and was instead sent to the ER for evaluation. He denies any other injuries, edema or shortness of breath. Chief Complaint: Back Pain Time Seen by MD: 18:51 Primary Care Provider: KELLIE Reviewed Notes: Nurses Notes Allergies: Coded Allergies: Erythromycin (Verified Allergy, Unknown, 04/17/24) Penicillins (Verified Allergy, Unknown, 04/17/24) Home Meds Active Scripts Hydrocodone-Acetaminophen (Hydrocodone Bitartrate/AC 5-325 mg) 1 Tab Tab, 1-2 TAB PO Q6HP PRN, #30 TAB Prov:QASIM BEJARANO MD 10/28/24 Dorzolamide HCl-Timolol Maleat (Cosopt 2-0.5 %) 1 Nury Nury, 1 NURY OP BID for 30 Days, #10 ML 1 Refill Prov:GULSHAN JIMENEZ 10/11/24 Brimonidine Tartrate (Alphagan P) 0.1 % Nury, 0.1 % OP TID for 30 Days, #10 ML 1 Refill Prov:GULSHAN JIMENEZ 10/11/24 Acyclovir (Acyclovir) 400 Mg Tab, 800 MG PO TID for 14 Days, #84 TAB Prov:HILDA MURPHY MD 09/05/24 Isosorbide Dinitrate (Isosorbide Dinitrate) 10 Mg Tab, 2 TAB PO TID@ 0600,1200,1800 for 5 Days, #30 TAB Prov:BERTRAM LARKIN 08/23/24 Hydralazine Hcl (Hydralazine Hcl) 25 Mg Tab, 25 MG PO TID for 90 Days, #270 TAB Prov:BERTRAM LARKIN 08/23/24 Carvedilol (COREG) 12.5 Mg Tab, 12.5 MG PO Q12HR for 30 Days, #60 TAB Prov:BERTRAM LARKIN [facility] 08/23/24 Apixaban Base (ELIQUIS) 2.5 Mg Tab, 2.5 MG PO BID for 30 Days, #60 TAB Prov:BERTRAM LARKIN [facility] 08/23/24 Atorvastatin Calcium (Lipitor) 40 Mg Tab, 40 MG PO DAILY for 40 Days, #40 TAB Prov[facility] 08/23/24 Bumetanide (Bumetanide) 1 Mg Tab, 1 TAB PO DAILY for 30 Days, #30 TAB Prov:BERTRAM LARKIN [facility] 08/23/24 Levetiracetam (Levetiracetam) 1,000 Mg Tab, 1 TAB PO BID for 30 Days, #60 TAB Prov:[facility] 08/23/24 Hydrocodone-Acetaminophen (Hydrocodone Bitartrate/AC 5-325 mg) 1 Tab Tab, 1 TAB PO Q6HP PRN, #20 TAB Prov:MYRIAM CORNELIUS MD 08/06/24 Reported Medications Levetiracetam (Levetiracetam) 750 Mg Tab, 1 TAB PO GERARD for 30 Days, #60 TAKE 1 TABLET BY MOUTH ALONG WITH 1000 MG TWICE DAILY ON DIALYSIS DAYS. 08/16/24 Quetiapine Fumerate (QUETIAPINE FUMARATE) 50 Mg Tab, 1 TAB PO 06/07/24 Insulin Lispro (Insulin Lispro Thai Kwi) 100 Unit/Ml Inj 06/07/24 Olopatadine HCl (Olopatadine Hydrochloride) 0.1 % Melchor, 1 DROP LEFTEYE BID 06/07/24 Information Source: Patient Mode of Arrival: Wheelchair Severity: Moderate Timing: Hours Duration: Since onset Prehospital treatment: None Past Medical History PAST MEDICAL HISTORY: AFIB, CHF, CVA, DM, ESRD, High Lipids, HTN, Schizop hrenia, Seizures Past Medical History (Other): Blind Family History Family History: Reviewed,noncontributory to illness Social History Smoker: Non-Smoker Alcohol: Denies ETOH Use Drugs: Denies Drug Use Lives In: Assisted Care Constitutional: denies: chills, diaphoresis, fatigue, fever, malaise, sweats, weakness, others EENTM: denies: blurred vision, double vision, ear bleeding, ear discharge, ear drainage, ear pain, ear ringing, eye pain, eye redness, hearing loss, mouth pain, mouth swelling, nasal discharge, nose bleeding, nose congestion, nose pain, photophobia, tearing, throat pain, throat swelling, voice changes, others Respiratory: denies: cough, hemoptysis, orthopnea, SOB at rest, shortness of breath, SOB with excertion, stridor, wheezing, others Cardiovascular: denies: chest pain, dizzy spells, diaphoresis, Dyspnea on exertion, edema, irregular heart beat, left arm pain, lightheadedness, palpitations, PND, syncope, others Gastrointestinal: denies: abdomen distended, abdominal pain, blood streaked bowels, constipated, diarrhea, dysphagia, difficulty swallowing, hematemesis, melena, nausea, poor appetite, poor fluid intake, rectal bleeding, rectal pain, vomiting, others Genitourinary: denies: burning, dysuria, flank pain, frequency, hematuria, incontinence, penile discharge, penile sore, pain, testicle pain, testicle swelling, urgency, others Neurological: denies: dizziness, fainting, headache, left sided numbness, left sided weakness, numbness, paresthesia, pre-existing deficit, right sided numbness, right sided weakness, seizure, speech problems, tingling, tremors, weakness, others Musculoskeletal: reports: back pain; denies: gout, joint pain, joint swelling, muscle pain, muscle stiffness, neck pain, others Integumetry: denies: bruises, change in color, change in hair/nails, dryness, laceration, lesions, lumps, rash, wounds, others Allergic/Immunocompromised: denies: Difficulty Healing, Frequent Infections, Hives, Itching, others Hematologic/Lymphatic: denies: anemia, blood clots, easy bleeding, easy bruising, swollen glands, others Endocrine: denies: excessive hunger, excessive sweating, excessive thirst, excessive urination, flushing, intolerance to cold, intolerance to heat, unexplained weight gain, unexplained weight loss, others Psychiatric: denies: anxiety, bipolar disorder, depression, hopeless, panic disorder, schizophrenia, sleepless, suicidal, others All Other Systems: Reviewed and Negative (Comprehensive systems review obtained and negative except for what is stated in the HPI.) Physical Exam General Appearance: No Apparent Distress HEENT: Other (Face symmetric. Moist mucous membranes.) Neck: Full Range of Motion, Non-Tender, Normal Inspection, Supple Respiratory: Lungs Clear, No Accessory Muscle Use, No Respiratory Distress, Normal Breath Sounds Cardiovascular: No Edema, No JVD, Regular Rate/Rhythm Breast Exam: Deferred Gastrointestinal: Non Tender, Soft Genitalia: Deferred Pelvic: Deferred Rectal: Deferred Extremities: Normal inspection, Normal range of motion, Non-tender, No pedal edema Musculoskeletal : Extremity Location: Back (Superficial abrasion with localized soft tissue tenderness lower thoracic mid back area. Midline lower thoracic and upper lumbar tenderness. Paraspinal lower thoracic and upper lumbar tenderness.) Neurologic: Alert (Oriented x4), Normal Affect, Normal Mood, Other (Ambulatory) Cerebellar Function: NOT DONE Reflexes: NOT DONE Skin: Dry, Normal Color, Warm Lymphatic: NOT DONE Was a procedure done? Was a procedure done?: No Differential Dx Considerations may include: Back contusion/abrasion, strain, sprain, spine fracture/subluxation, among others X-Ray, Labs, Meds, VS Vital Signs Date Time Temp Pulse Resp B/P (MAP) Pulse Ox O2 Delivery O2 Flow Rate FiO2 10/28/24 21:25 86 16 173/96 (121) 98 10/28/24 20:05 186/103 10/28/24 19:31 91 16 98 Room Air* 0 21 10/28/24 19:31 98.3 91 16 186/103 (130) 98 98.3 10/28/24 17:33 97.8 96 18 141/103 98 97.8 Lab Test 10/28/24 19:28 Range/Units White Blood Count 5.0 4.4-10.8 10^3/uL Red Blood Count 3.32 L 4.5-5.90 10^6/uL Hemoglobin 10.7 L 13.5-17.5 g/dL Hematocrit 31.5 L 41.0-53.0 % Mean Corpuscular Volume 94.8 80.0-100.0 fL Mean Corpuscular Hemoglobin 32.2 H 28.0-32.0 pg Mean Corpuscular Hemoglobin Concent 34.0 32.0-36.0 g/dL Red Cell Distribution Width 17.4 H 11.8-14.3 % Platelet Count 274 140-450 10^3/uL Mean Platelet Volume 7.0 6.9-10.8 fL Neutrophils (%) (Auto) 50.4 37.0-80.0 % Lymphocytes (%) (Auto) 34.2 10.0-50.0 % Monocytes (%) (Auto) 11.4 0.0-12.0 % Eosinophils (%) (Auto) 3.5 0.0-7.0 % Basophils (%) (Auto) 0.5 0.0-2.0 % Neutrophils # (Auto) 2.5 1.6-8.6 10 ^3/uL Lymphocytes # (Auto) 1.7 0.4-5.4 10 ^3/uL Monocytes # (Auto) 0.6 0-1.3 10 ^3/uL Eosinophils # (Auto) 0.2 0-0.8 10 ^3/uL Basophils # (Auto) 0 0-0.2 10 ^3/uL Nucleated Red Blood Cells 0.1 % Sodium Level 142 136-145 mmol/L Potassium Level 4.2 3.5-5.1 mmol/L Chloride Level 111 H 98-107 mmol/L Carbon Dioxide Level 20 20-31 mmol/L Anion Gap 11 5-15 Blood Urea Nitrogen 42 H 9-23 mg/dL Creatinine 5.52 H 0.700-1.30 mg/dL Glomerular Filtration Rate Calc 12 >90 mL/min BUN/Creatinine Ratio 7.6 L 10.0-20.0 Serum Glucose 210 H 74-106 mg/dL Calcium Level 8.9 8.7-10.4 mg/dL Current Medications Medications (Trade) Dose Ordered Sig/Misty Route Start Time Stop Time Status Last Admin Acetaminophen/ Hydrocodone Bitart ([place] 5/325MG Tab) 2 tab ONCE ONCE PO 10/28/24 19:00 10/28/24 19:01 DC 10/28/24 19:43 Hydralazine HCl (Apresoline Tablet) 10 mg ONCE ONCE PO 10/28/24 19:15 10/28/24 19:58 DC 10/28/24 20:05 CT OF THE THORACIC SPINE WITHOUT CONTRAST HISTORY: Fall, back pain COMPARISON: XY CHEST XRAY 1 VIEW on DOS: 10/10/24, XY CHEST XRAY 1 VIEW on DOS: 09/16/24, XY CHEST PORTABLE on DOS: 08/31/24 TECHNIQUE: Axial images through the thoracic spine were obtained without contrast. Coronal and sagittal reformats were obtained. One or more of the following radiation dose reduction techniques were used for this examination: automated exposure control, adjustment of the mA and/or kV according to patient size, use of iterative reconstruction technique. FINDINGS: 12 rib-bearing thoracic type vertebrae. Mild straightening of the thoracic kyphosis. Mild anterior wedge deformity of T12. Severe degenerative changes at L2-L3 with moderate to severe spinal canal stenosis. Diffuse demineralization. Old fracture deformity of left posterior 2nd rib Right IJ approach hemodialysis catheter terminating within right atrium. Mild nonspecific bilateral perirenal fat stranding. IMPRESSION: Mild anterior wedge deformity of T12 of unknown chronicity, likely chronic. LS SPINE WO CONTRAST Date: 10/28/2024 07:02 PM History: Fall, back pain Comparison: CT CERVICAL WITHOUT CONTRAST on DOS: 08/15/24 TECHNIQUE: Multiple axial CT images of the lumbosacral spine were obtained using bone algorithm. Axial and coronal reformatting was done. Bone and soft tissue windows were reviewed. Radiation Dose Information: CT Dose: CTDI volume is 31.8 mGy. Dose-length product is 1127.17 mGy*cm FINDINGS: No CT evidence of definite acute fracture, spinal dislocation, or significant appearing acute subluxation is seen. The visualized paraspinal soft tissues are grossly unremarkable. T12-L1 There is no evidence of central spinal canal or neuroforaminal stenosis. L1-L2 There is no evidence of central spinal canal or neuroforaminal stenosis. L2-L3 Irregularity to the inferior endplate of L2 and superior endplate of L3 is noted. May be due to degenerative disc disease however discitis can not be excluded. Mild narrowing of the central spinal canal measuring 8-9 mm front to back. L3-L4 There is no evidence of central spinal canal or neuroforaminal stenosis. L4-L5 calcification of the posterior longitudinal ligament creating mild spinal stenosis measuring 7 8 mm front to back. There are hypertrophic arthritic bony changes to the posterior facets and hypertrophy of the ligamentum flavum bilaterally. L5-S1 There is no evidence of central spinal canal or neuroforaminal stenosis. Grade 1 anterior spondylolisthesis L5-S1. Irregularity of the inferior endplate of L5 and superior endplate of S1 may represent degenerative disc disease or discitis. MRI may be helpful. IMPRESSION: 1. No definite CT evidence of acute fracture or dislocation of the bony lumbar spine. 2. Degenerative disc changes and irregularity of the opposing articular surfaces of the vertebral bodies which may represent degenerative joint disease or discitis. Consider MRI for further evaluation. 3. Vacuum disc phenomenon and degenerative disc changes at L5-S1. 4. Grade 1 anterior spondylolisthesis at L5-S1. Bilateral spondylolysis at L5. All CT scans at this medical facility are performed using dose modulation techniques as appropriate to a performed exam including the following: Automated exposure control was utilized; adjustment of the MA and/or KV according to pa tient size; and use of iterative reconstruction technique. T RADIOGRAPH Indication: Fall Technique: Single frontal view of the chest was obtained Comparison: XY CHEST XRAY 1 VIEW on DOS: 10/10/24, XY CHEST XRAY 1 VIEW on DOS: 09/16/24, XY CHEST PORTABLE on DOS: 08/31/24 FINDINGS: Lines and Tubes: Right IJ approach hemodialysis catheter terminating within the right atrium. Lungs: No focal consolidation. Pleura: No effusion. No pneumothorax. Cardiomediastinal contours: Unremarkable Bones: No acute osseous abnormality. IMPRESSION: No acute cardiopulmonary disease. X-Ray, Labs, Meds, VS Comment 53-year-old male with a history of end-stage renal disease on dialysis, blindness, AFib, CHF, hypertension, schizophrenia, CVA brought in by private car complaining of back pain status post fall. Did not undergo dialysis today. Vitals remarkable for BP 141/103 Exam remarkable for Superficial abrasion with localized soft tissue tenderness lower thoracic mid back area. Midline lower thoracic and upper lumbar tenderness. Paraspinal lower thoracic and upper lumbar tenderness. Rhythm strip independently interpreted by me: Sinus rhythm, rate 96, no ectopy. CT T-spine IMPRESSION: Mild anterior wedge deformity of T12 of unknown chronicity, likely chronic. CT lumbar spine IMPRESSION: 1. No definite CT evidence of acute fracture or dislocation of the bony lumbar spine. 2. Degenerative disc changes and irregularity of the opposing articular surfaces of the vertebral bodies which may represent degenerative joint disease or discitis. Consider MRI for further evaluation. 3. Vacuum disc phenomenon and degenerative disc changes at L5-S1. 4. Grade 1 anterior spondylolisthesis at L5-S1. Bilateral spondylolysis at L5. Chest x-ray NAD CBC unremarkable, basic metabolic panel remarkable for BUN 42, creatinine 5.52, electrolytes are within normal limits Patient treated with the following in the ED: [place] 5/325 mg p.o., hydralazine 10 mg p.o. On re-evaluation, pain has improved. Vitals were stable. Patient states he has been scheduled for dialysis tomorrow. He appears stable for discharge with a prescription for pain medication and close outpatient follow-up with his primary physician. Rx [place] Time of 1ST Reevaluation: 18:47 Reevaluation 1ST: Unchanged Patient Education/Counseling: Diagnosis, Treatment Family Education/Counseling: No Family Present SEPSIS Sepsis Screen Date sepsis recognized/suspect: Oct 28, 2024 Time Sepsis recognized/suspect: 1734 Recent Procedure: No On Antibiotic Therapy: No Respiratory Rate >20: No Heart Rate >90: No Temp<36 C (96.8 F) or >38.3 C: No SBP <90 or MAP <65 mmHG: No New Acute Mental Status Change: No Is the patient on CPAP, BIPAP,: No Physician Orders Chest Xray 1 View (10/28/24 18:48) Thoracic Spine Wo Contras (10/28/24 18:48) Ls Spine Wo Contrast (10/28/24 18:48) Vital Signs Date Time Temp Pulse Resp B/P (MAP) Pulse Ox O2 Delivery O2 Flow Rate FiO2 10/28/24 21:25 86 16 173/96 (121) 98 10/28/24 20:05 186/103 10/28/24 19:31 91 16 98 Room Air* 0 21 10/28/24 19:31 98.3 91 16 186/103 (130) 98 98.3 10/28/24 17:33 97.8 96 18 141/103 98 97.8 Laboratory Tests Test 10/28/24 19:28 White Blood Count 5.0 10^3/uL (4.4-10.8) Medications Medications Dose Ordered Sig/Misty Route Start Time Stop Time Status Last Admin Dose Admin Hydralazine HCl 10 mg ONCE ONCE PO 10/28/24 19:15 10/28/24 19:58 DC 10/28/24 20:05 Departure 1 Departure Time of Disposition: 21:05 Impression: Primary Impression: Back contusion Additional Impression: Abrasion Disposition: HOME / SELF CARE / HOMELESS Condition: Stable Additional Instructions: Your CTs did not show any definite acute fracture. I have prescribed pain medication. Follow-up at your dialysis center tomorrow for dialysis. Follow-up with your primary doctor in 1-2 days. [place] [address] Ph: [phone] DIAGNOSTIC IMAGING Diagnostic Imaging Report : [id number] Signed PATIENT: ASHELY ZELAYA ACCT: [id number] UNIT: [id number] : 1970 LOC: ER ROOM / BED: / AGE / SEX: 53 / M ADM STATUS: REG ER SERVICE 47 ORDERING PHYSICIAN: QASIM BEJARANO MD PROCEDURE(s): TS2CT - THORACIC SPINE WO CONTRAS REASON: Fall, back pain ORDER NUMBER(s): [id number], ACCESSION NUMBER(s): [id number] CT OF THE THORACIC SPINE WITHOUT CONTRAST HISTORY: Fall, back pain COMPARISON: XY CHEST XRAY 1 VIEW on DOS: 10/10/24, XY CHEST XRAY 1 VIEW on DOS: 09/16/24, XY CHEST PORTABLE on DOS: 08/31/24 TECHNIQUE: Axial images through the thoracic spine were obtained without contrast. Coronal and sagittal reformats were obtained. One or more of the following radiation dose reduction techniques were used for this examination: automated exposure control, adjustment of the mA and/or kV according to patient size, use of iterative reconstruction technique. FINDINGS: 12 rib-bearing thoracic type vertebrae. Mild straightening of the thoracic kyphosis. Mild anterior wedge deformity of T12. Severe degenerative changes at L2-L3 with moderate to severe spinal canal stenosis. Diffuse demineralization. Old fracture deformity of left posterior 2nd rib Right IJ approach hemodialysis catheter terminating within right atrium. Mild nonspecific bilateral perirenal fat stranding. IMPRESSION: Mild anterior wedge deformity of T12 of unknown chronicity, likely chronic. [address] [address] Ph: [phone] DIAGNOSTIC IMAGING Diagnostic Imaging Report : [id number] Signed PATIENT: ASHELY ZELAYA ACCT: [id number] UNIT: [id number] : 1970 LOC: ER ROOM / BED: / AGE / SEX: 53 / M ADM STATUS: REG ER SERVICE 1848 ORDERING PHYSICIAN: QASIM BEJARANO MD PROCEDURE(s): LS2CT - LS SPINE WO CONTRAST REASON: Fall, back pain ORDER NUMBER(s): [id number], ACCESSION NUMBER(s): [id number] CT LS SPINE WO CONTRAST Date: 10/28/2024 07:02 PM History: Fall, back pain Comparison: CT CERVICAL WITHOUT CONTRAST on DOS: 08/15/24 TECHNIQUE: Multiple axial CT images of the lumbosacral spine were obtained using bone algorithm. Axial and coronal reformatting was done. Bone and soft tissue windows were reviewed. Radiation Dose Information: CT Dose: CTDI volume is 31.8 mGy. Dose-length product is 1127.17 mGy*cm FINDINGS: No CT evidence of definite acute fracture, spinal dislocation, or significant appearing acute subluxation is seen. The visualized paraspinal soft tissues are grossly unremarkable. T12-L1 There is no evidence of central spinal canal or neuroforaminal stenosis. L1-L2 There is no evidence of central spinal canal or neuroforaminal stenosis. L2-L3 Irregularity to the inferior endplate of L2 and superior endplate of L3 is noted. May be due to degenerative disc disease however discitis can not be excluded. Mild narrowing of the central spinal canal measuring 8-9 mm front to back. L3-L4 There is no evidence of central spinal canal or neuroforaminal stenosis. L4-L5 calcification of the posterior longitudinal ligament creating mild spinal stenosis measuring 7 8 mm front to back. There are hypertrophic arthritic bony changes to the posterior facets and hypertrophy of the ligamentum flavum bilaterally. L5-S1 There is no evidence of central spinal canal or neuroforaminal stenosis. Grade 1 anterior spondylolisthesis L5-S1. Irregularity of the inferior endplate of L5 and superior endplate of S1 may represent degenerative disc disease or discitis. MRI may be helpful. IMPRESSION: 1. No definite CT evidence of acute fracture or dislocation of the bony lumbar spine. 2. Degenerative disc changes and irregularity of the opposing articular surfaces of the vertebral bodies which may represent degenerative joint disease or di scitis. Consider MRI for further evaluation. 3. Vacuum disc phenomenon and degenerative disc changes at L5-S1. 4. Grade 1 anterior spondylolisthesis at L5-S1. Bilateral spondylolysis at L5. All CT scans at this medical facility are performed using dose modulation techniques as appropriate to a performed exam including the following: Automated exposure control was utilized; adjustment of the MA and/or KV according to patient size; and use of iterative reconstruction technique. e-Prescriptions Hydrocodone-Acetaminophen (Hydrocodone Bitartrate/AC 5-325 mg) 1 Tab Tab 1-2 TAB PO Q6HP PRN, #30 TAB Prov: QASIM BEJARANO MD 10/28/24 Discharged With: Relative Critical Care Note Critical Care Time?: No Stability Stability form required: No Heart Score Heart Score: Heart Score Response (Comments) Value History N/A 0 EKG N/A 0 Age N/A 0 Risk Factors N/A 0 Troponin N/A 0 Total 0 I personally scribed for QASIM BEJARANO MD ([email or web address]) on 10/28/24 at 18:52. Electronically submitted by Nabeel Merino ([email or web address]). I personally scribed for QASIM BEJARANO MD ([email or web address]) on 10/28/24 at 20:34. Electronically submitted by Nabeel Merino ([email or web address]). QASIM BEJARANO MD Oct 28, 2024 18:52
--- NOTE | 2024-10-28 19:21 | DVH ---
CHEST RADIOGRAPH Indication: Fall Technique: Single frontal view of the chest was obtained Comparison: XY CHEST XRAY 1 VIEW on DOS: 10/10/24, XY CHEST XRAY 1 VIEW on DOS: 09/16/24, XY CHEST PORT ABLE on DOS: 08/31/24 FINDINGS: Lines and Tubes: Right IJ approach hemodialysis catheter terminating within the right atrium. Lungs: No focal consolidation. Pleura: No effusion. No pneumothorax. Cardiomediastinal contours: Unremarkable Bones: No acute osseous abnormality. IMPRESSION: No acute cardiopulmonary disease.
[2024-10-28 19:31] VITALS: PULSE 91; RESP 16; TEMP 98.3; O2SAT 98
[2024-10-28] MEDS: HYDROcodone-ACET 5/325MG TAB PO ONE (19:43)
[2024-10-28 19:56] LABS: Hematocrit 31.5 % (41.0-53.0); Hemoglobin 10.7 g/dL (13.5-17.5); Mean Corpuscular Hemoglobin 32.2 pg (28.0-32.0); Mean Corpuscular Volume 94.8 fL (80.0-100.0); Nucleated Red Blood Cells % 0.1 %
--- NOTE | 2024-10-28 20:00 | DVH ---
CT LS SPINE WO CONTRAST Date: 10/28/2024 07:02 PM History: Fall, back pain Comparison: CT CERVICAL WITHOUT CONTRAST on DOS: 08/15/24 TECHNIQUE: Multiple axial CT images of the lumbosacral spine were obtained using bone algorithm. Axial and coron al reformatting was done. Bone and soft tissue windows were reviewed. Radiation Dose Information: CT Dose: CTDI volume is 31.8 mGy. Dose-length product is 1127.17 mGy*cm FINDINGS: No CT evidence of definite acute fracture, spinal dislocation, or significant appearing acute subluxa tion is seen. The visualized paraspinal soft tissues are grossly unremarkable. T12-L1 There is no evidence of central spinal canal or neuroforaminal stenosis. L1-L2 There is no evidence of central spinal canal or neuroforaminal stenosis. L2-L3 Irregularity to the inferior endplate of L2 and superior endplate of L3 is noted. May be due to degenerative disc disease however discitis can not be excluded. Mild narrowing of the central spinal canal measuring 8-9 mm front to back. L3-L4 There is no evidence of central spinal canal or neuroforaminal stenosis. L4-L5 calcification of the posterior longitudinal ligament creating mild spinal stenosis measuring 7 8 mm front to back. There are hypertrophic arthritic bony changes to the posterior facets and hypertr ophy of the ligamentum flavum bilaterally. L5-S1 There is no evidence of central spinal canal or neuroforaminal stenosis. Grade 1 anterior spond ylolisthesis L5-S1. Irregularity of the inferior endplate of L5 and superior endplate of S1 may repr esent degenerative disc disease or discitis. MRI may be helpful. IMPRESSION: 1. No definite CT evidence of acute fracture or dislocation of the bony lumbar spine. 2. Degenerative disc changes and irregularity of the opposing articular surfaces of the vertebral bod ies which may represent degenerative joint disease or discitis. Consider MRI for further evaluation. 3. Vacuum disc phenomenon and degenerative disc changes at L5-S1. 4. Grade 1 anterior spondylolisthesis at L5-S1. Bilateral spondylolysis at L5. All CT scans at this medical facility are performed using dose modulation techniques as appropriate t o a performed exam including the following: Automated exposure control was utilized; adjustment of th e MA and/or KV according to patient size; and use of iterative reconstruction technique.
--- NOTE | 2024-10-28 20:07 | DVH ---
CT OF THE THORACIC SPINE WITHOUT CONTRAST HISTORY: Fall, back pain COMPARISON: XY CHEST XRAY 1 VIEW on DOS: 10/10/24, XY CHEST XRAY 1 VIEW on DOS: 09/16/24, XY CHEST PORT ABLE on DOS: 08/31/24 TECHNIQUE: Axial images through the thoracic spine were obtained without contrast. Coronal and sagitt al reformats were obtained. One or more of the following radiation dose reduction techniques were use d for this examination: automated exposure control, adjustment of the mA and/or kV according to patie nt size, use of iterative reconstruction technique. FINDINGS: 12 rib-bearing thoracic type vertebrae. Mild straightening of the thoracic kyphosis. Mild anterior we dge deformity of T12. Severe degenerative changes at L2-L3 with moderate to severe spinal canal steno sis. Diffuse demineralization. Old fracture deformity of left posterior 2nd rib Right IJ approach hemodialysis catheter terminating within right atrium. Mild nonspecific bilateral perirenal fat stranding. IMPRESSION: Mild anterior wedge deformity of T12 of unknown chronicity, likely chronic.
[2024-10-28 20:09] LABS: Potassium 4.2 mmol/L (3.5-5.1); Sodium 142 mmol/L (136-145)
[2024-10-28 20:10] LABS: Anion Gap 11 (5-15)
[2024-10-28 20:11] LABS: Calcium 8.9 mg/dL (8.7-10.4)
[2024-10-28 20:14] LABS: Carbon Dioxide 20 mmol/L (20-31); Chloride 111 mmol/L (98-107)
[2024-10-28 20:15] LABS: BUN/Creatinine Ratio 7.6 (10.0-20.0)
[2024-10-28 20:18] LABS: Blood Urea Nitrogen 42 mg/dL (9-23); Glucose 210 mg/dL (74-106)
[2024-10-28] MEDS ORDERED: HYDR-4902 PO (21:06)
[2024-10-28 21:25] VITALS: BP 173/96; PULSE 86; RESP 16; O2SAT 98
== END 2024-10-28 21:28 | disposition home or self-care (01) ==
LOC: ER 17:34
DX: S20.224A Contusion of middle back wall of thorax, initial encounter (principal); S20.419A Abrasion of unspecified back wall of thorax, initial encounter; I48.91 Unspecified atrial fibrillation; I13.2 Hypertensive heart and chronic kidney disease with heart failure and with stage 5 chronic kidney disease, or end stage renal disease; I50.9 Heart failure, unspecified; E11.22 Type 2 diabetes mellitus with diabetic chronic kidney disease; N18.6 End stage renal disease; E78.5 Hyperlipidemia, unspecified; F20.9 Schizophrenia, unspecified; Z99.2 Dependence on renal dialysis; Z88.0 Allergy status to penicillin; Z88.1 Allergy status to other antibiotic agents; Z86.73 Personal history of transient ischemic attack (TIA), and cerebral infarction without residual deficits; Z79.899 Other long term (current) drug therapy; Z79.624 Long term (current) use of inhibitors of nucleotide synthesis; Z79.01 Long term (current) use of anticoagulants; W01.0XXA Fall on same level from slipping, tripping and stumbling without subsequent striking against object, initial encounter; Y93.89 Activity, other specified; Y92.89 Other specified places as the place of occurrence of the external cause; Y99.8 Other external cause status
CPT/HCPCS: 36415; 71045; 72128; 72131; 80048; 85025

== ENCOUNTER 2024-10-31 14:22 | Inpatient (IN) | payer MEDICAID ==
[~2024-10-31] VITALS: Ht 182.9 cm; Wt 85.0 kg
[2024-10-31 16:12] LABS: Hematocrit 33.2 % (41.0-53.0); Hemoglobin 11.4 g/dL (13.5-17.5); Mean Corpuscular Hemoglobin 32.2 pg (28.0-32.0); Mean Corpuscular Volume 94.0 fL (80.0-100.0); Nucleated Red Blood Cells % 0.1 %
--- NOTE | 2024-10-31 16:22 | ED.PDOC ---
History of Present Illness HPI Comments HPI: [place] 53 y.o male presented to the ED due to concerns about his dialysis port. The patient reported that his niece noticed the stitching around the port had come undone during a dressing change. He had missed two previous dialysis sessions due to back pain from a fall and was evaluated for this two days prior. The patient has scratches and scabs on his back. He missed his scheduled dialysis today due to fear of port dislodgement, having experienced this in the past. He maintains urine output and does not use diuretics. His dance entertainer is Dr. Guaman. No symptoms reported. Vitals Temp: 98.9 F HR: 101 BP: 199/106 RR: 20 SPO2: 94% RA Past Medical history: ESRD, CHF, Schizophrenia. AFIB, CHF, CVA, HLD, HTN, seizures Past Surgical history:Dialysis port Social History: Denies smoking, ETOH, and drug use. Allergies:Erythromycin and penicillins NATHALIE: HPI: Poor Historian. Past Medical History: Past Surgical History: REVIEW OF SYSTEMS: CONSTITUTIONAL: Denies acute: fever, diaphoresis, chills, HEAD: Denies acute: headache, photophobia Eyes: Denies acute: Double vision, vision loss, eye pain, eye discharge. EARS: Denies acute: tinnitus, hearing loss, ear discharge, ear pain, THROAT: Denies acute: sore throat, swelling, difficulty swallowing , pain with swallowing, change in voice. NECK: Denies acute: neck pain, neck swelling, stiff neck. HEART: Denies acute : chest pain, palpitations, LUNGS: Denies acute: SOB, wheezing, cough, hemoptysis ABDOMEN: Denies acute: abdominal pain, Nausea, Vomiting, diarrhea, melena , hematemesis, hematochezia SKIN: Denies acute: rash, redness, lesions, itchiness. EXTREMITIES: Denies acute: calf pain, numbness, tingling, weakness, denies pain in extremity. Denies acute: Low back pain. Neuro: Denies acute: focal neurological deficit, motor or sensory focal neurological deficit, tremors, seizure like activity, confusion, dizziness, change in mental status, loss of bowel or bladder function, cauda equina like symptoms. : Denies acute: dysuria, hematuria, flank pain, increase in urinary frequency. PSYCH: Denies acute: hallucination, suicidal ideation, homicidal ideation. PHYSICAL EXAM: General: ----no----acute distress, awake and alert. Head: normocephalic, atraumatic. Neck: supple, trachea is midline, no swelling. Throat: Normal phonation. Eyes:, no erythema, no purulent discharge, no proptosis, no icterus. Patient is blind Heart: regular rate, regular rhythm, no significant murmur appreciated. Lungs: no apparent respiratory distress, Able to speak in full sentences. No wheezing, no rhonchi, no crackles. No stridors Clear to auscultation bilaterally. Abdomen: non tender to palpation, non distended, soft, no guarding, no rebound, + bowel sounds. Evaluation of the right chest wall where the dialysis catheter is. No apparent erythema or swelling. Patient has some old skin abrasions in his lower mid back from a recent fall for which she was evaluated already in the ER. Patient states he still makes urine but he says he is not on diuretics. Neuro: Awake, Alert, oriented to name, self, situation, follows commands GCS=15. Speech is normal. Skin: no petechia, no purpura, no cyanosis, non-pale, not jaundice. Lower extremities: --trace- Pitting edema no deformity, no focal swelling, no calf TTP. Patient is blind moves all four extremities. Face: no apparent facial droop. ED COURSE: DISCLAIMER: This medical document was created using an electronic medical record system with voice recognition software and computerized dictation system. Although this document has been carefully reviewed, there might still be some phonetic and typographical errors. Occasional wrong-word or "sound-alike" substitutions may have occurred due to the inherent limitations of voice recognition software. These areas are purely typographical due to imperfections of the software programs and do not reflect any compromise in the patient's medical care. Please read the chart carefully and recognize, using context, where these substitutions have occurred. Chief Complaint: Tube Replacement Time Seen by MD: 15:54 Primary Care Provider: KELLIE Reviewed Notes: Allergies Allergies: Coded Allergies: Erythromycin (Verified Allergy, Unknown, 04/17/24) Penicillins (Verified Allergy, Unknown, 04/17/24) Home Meds Active Scripts Hydrocodone-Acetaminophen (Hydrocodone Bitartrate/AC 5-325 mg) 1 Tab Tab, 1-2 TAB PO Q6HP PRN, #30 TAB Prov:QASIM BEJARANO MD 10/28/24 Dorzolamide HCl-Timolol Maleat (Cosopt 2-0.5 %) 1 Keerthi Keerthi, 1 KEERTHI OP BID for 30 Days, #10 ML 1 Refill Prov:GULSHAN [facility]Z [facility] 10/11/24 Brimonidine Tartrate (Alphagan P) 0.1 % Keerthi, 0.1 % OP TID for 30 Days, #10 ML 1 Refill Prov:GULSHAN [facility] 10/11/24 Acyclovir (Acyclovir) 400 Mg Tab, 800 MG PO TID for 14 Days, #84 TAB Prov:HILDA MURPHY MD 09/05/24 Isosorbide Dinitrate (Isosorbide Dinitrate) 10 Mg Tab, 2 TAB PO TID@0600,1200,1800 for 5 Days, #30 TAB Prov:BERTRAM LARKIN [facility] 08/23/24 Hydralazine Hcl (Hydralazine Hcl) 25 Mg Tab, 25 MG PO TID for 90 Days, #270 TAB Prov:[facility] 08/23/24 Carvedilol (COREG) 12.5 Mg Tab, 12.5 MG PO Q12HR for 30 Days, #60 TAB Prov:CLINT [facility]KA[facility] 08/23/24 Apixaban Base (ELIQUIS) 2.5 Mg Tab, 2.5 MG PO BID for 30 Days, #60 TAB Prov:BERTRAM LARKIN [facility] 08/23/24 Atorvastatin Calcium (Lipitor) 40 Mg Tab, 40 MG PO DAILY for 40 Days, #40 TAB Prov:BERTRAM LARKIN [facility] 08/23/24 Bumetanide (Bumetanide) 1 Mg Tab, 1 TAB PO DAILY for 30 Days, #30 TAB Prov:CLINT [facility]KA[facility] 08/23/24 Levetiracetam (Levetiracetam) 1,000 Mg Tab, 1 TAB PO BID for 30 Days, #60 TAB Prov:BERTRAM LARKIN [facility] 08/23/24 Hydrocodone-Acetaminophen (Hydrocodone Bitartrate/AC 5-325 mg) 1 Tab Tab, 1 TAB PO Q6HP PRN, #20 TAB Prov:MYRIAM CORNELIUS MD 08/06/24 Reported Medications Levetiracetam (Levetiracetam) 750 Mg Tab, 1 TAB PO GERARD for 30 Days, #60 TAKE 1 TABLET BY MOUTH ALONG WITH 1000 MG TWICE DAILY ON DIALYSIS DAYS. 08/16/24 Quetiapine Fumerate (QUETIAPINE FUMARATE) 50 Mg Tab, 1 TAB PO 06/07/24 Insulin Lispro (Insulin Lispro Thai Kwi) 100 Unit/Ml Inj 06/07/24 Olopatadine HCl (Olopatadine Hydrochloride) 0.1 % Melchor, 1 DROP LEFTEYE BID 06/07/24 Information Source: Patient Mode of Arrival: Ambulatory Past Medical History PAST MEDICAL HISTORY: AFIB, CHF, CVA, DM, ESRD, High Lipids, HTN, Schizophrenia, Seizures Surgical History (Other): dialysis port Family History Family History: Reviewed,noncontributory to illness Social History Smoker: Non-Smoker Alcohol: Denies ETOH Use Drugs: Denies Drug Use Lives In: Assisted Care Was a procedure done? Was a procedure done?: No Differential Dx Considerations may include: Tubal replacement X-Ray, Labs, Meds, VS Vital Signs Date Time Temp Pulse Resp B/P (MAP) Pulse Ox O2 Delivery O2 Flow Rate FiO2 10/31/24 14:24 98.9 101 20 199/106 94 98.9 Lab Test 10/31/24 15:50 Range/Units White Blood Count 5.3 4.4-10.8 10^3/uL Red Blood Count 3.53 L 4.5-5.90 10^6/uL Hemoglobin 11.4 L 13.5-17.5 g/dL Hematocrit 33.2 L 41.0-53.0 % Mean Corpuscular Volume 94.0 80.0-100.0 fL Mean Corpuscular Hemoglobin 32.2 H 28.0-32.0 pg Mean Corpuscular Hemoglobin Concent 34.3 32.0-36.0 g/dL Red Cell Distribution Width 16.8 H 11.8-14.3 % Platelet Count 287 140-450 10^3/uL Mean Platelet Volume 6.7 L 6.9-10.8 fL Neutrophils (%) (Auto) 53.0 37.0-80.0 % Lymphocytes (%) (Auto) 33.8 10.0-50.0 % Monocytes (%) (Auto) 9.5 0.0-12.0 % Eosinophils (%) (Auto) 3.0 0.0-7.0 % Basophils (%) (Auto) 0.7 0.0-2.0 % Neutrophils # (Auto) 2.8 1.6-8.6 10 ^3/uL Lymphocytes # (Auto) 1.8 0.4-5.4 10 ^3/uL Monocytes # (Auto) 0.5 0-1.3 10 ^3/uL Eosinophils # (Auto) 0.2 0-0.8 10 ^3/uL Basophils # (Auto) 0 0-0.2 10 ^3/uL Nucleated Red Blood Cells 0.1 % Prothrombin Time 10.1 9.3-11.8 sec Prothrombin Time INR 0.95 0.9-1.15 Activated Partial Thromboplast Time 26.4 24.5-34.5 SEC Sodium Level 142 136-145 mmol/L Potassium Level 4.9 3.5-5.1 mmol/L Chloride Level 111 H 98-107 mmol/L Carbon Dioxide Level 21 20-31 mmol/L Anion Gap 10 5-15 Blood Urea Nitrogen 48 H 9-23 mg/dL Creatinine 5.34 H 0.700-1.30 mg/dL Glomerular Filtration Rate Calc 12 >90 mL/min BUN/Creatinine Ratio 9.0 L 10.0-20.0 Serum Glucose 170 H 74-106 mg/dL Calcium Level 9.2 8.7-10.4 mg/dL Total Bilirubin 0.3 0.2-1.0 mg/dL Aspartate Amino Transferase (AST) 14 13-40 U/L Alanine Aminotransferase (ALT) 17 7-40 U/L Alkaline Phosphatase 85 46-116 U/L Total Protein 6.2 5.7-8.2 g/dL Albumin 4.2 3.2-4.8 g/dL Time of 1ST Reevaluation: 15:57 Reevaluation 1ST: Unchanged Patient Education/Counseling: Diagnosis, Treatment Family Education/Counseling: No Family Present Departure 1 Departure Time of Disposition: 16:44 Impression: Primary Impression: End stage renal disease on dialysis Additional Impression: Missed dialysis Disposition: 09 ADMITTED INPATIENT Admit to: Tele Condition: Guarded Discharged With: Self Critical Care Note Critical Care Time?: No I personally scribed for TATY LEAL DO ([email or web address]) on 10/31/24 at 16:22. Electronically submitted by Nathalie Bond ([facility]). TATY LEAL DO Oct 31, 2024 16:22
[2024-10-31 16:31] LABS: INR 0.95 (0.9-1.15); Partial Thromboplastin Time 26.4 SEC (24.5-34.5); Prothrombin Time 10.1 sec (9.3-11.8)
[2024-10-31 16:33] LABS: Alanine Aminotransferase 17 U/L (7-40); Albumin 4.2 g/dL (3.2-4.8); Alkaline Phosphatase 85 U/L (46-116); Anion Gap 10 (5-15); BUN/Creatinine Ratio 9.0 (10.0-20.0); Calcium 9.2 mg/dL (8.7-10.4); Carbon Dioxide 21 mmol/L (20-31); Potassium 4.9 mmol/L (3.5-5.1); Sodium 142 mmol/L (136-145); Total Protein 6.2 g/dL (5.7-8.2)
[2024-10-31 16:35] LABS: Bilirubin, Total 0.3 mg/dL (0.2-1.0); Blood Urea Nitrogen 48 mg/dL (9-23); Chloride 111 mmol/L (98-107); Glucose 170 mg/dL (74-106)
[2024-10-31] MEDS ORDERED: ONDANSETRON HCL 4 MG/2 ML VIAL IV PRN (19:30)
[2024-10-31] MEDS ORDERED: ACETAMINOPHEN 325 MG TAB PO PRN (19:30)
--- NOTE | 2024-11-01 00:40 | DVHHP2 ---
History of Present Illness Reason for Visit: Dialysis catheter malfunction History of Present Illness 53-year-old male presents for evaluation of his dialysis catheter. Patient noted the stitches coming off from the dialysis catheter therefore he missed his dialysis session due to fear of dislodging to dialysis catheter which has happened in the past. He also complains of pain discomfort on his back. Patient was seen three days ago after he suffered a fall and scratched his back. No other acute complaints reported. Past Medical History End-stage renal disease, AFib, CHF, CVA, hypertension, seizure Past Surgical History Dialysis catheter Family History Noncontributory Smoke: No ALCOHOL: none Drugs: None Lives: with Family Review of Systems Review of Systems Review of systems are currently negative otherwise addressed in HPI. Allergies: Coded Allergies: Erythromycin (Verified Allergy, Unknown, 04/17/24) Penicillins (Verified Allergy, Unknown, 04/17/24) Medications Current Medications Medications Dose Ordered Sig/Misty Route Start Time Stop Time Status Last Admin Dose Admin Hydralazine HCl 25 mg Q8HR PO 10/31/24 22:00 Apixaban 2.5 mg BID PO 10/31/24 22:00 Atorvastatin Calcium 20 mg HS PO 10/31/24 22:00 Bumetanide 1 mg DAILY PO 11/01/24 10:00 Carvedilol 12.5 mg Q12HR PO 10/31/24 22:00 Isosorbide Dinitrate 20 mg TID@06,12,18 PO 11/01/24 06:00 Levetiracetam 1,000 mg BID PO 10/31/24 22:00 Ondansetron HCl 4 mg Q4HP PRN IV 10/31/24 19:30 Acetaminophen 650 mg Q6HP PRN PO 10/31/24 19:30 Exam Vital Signs Vital Signs Date Time Temp Pulse Resp B/P (MAP) Pulse Ox O2 Delivery O2 Flow Rate FiO2 10/31/24 19:46 98.3 90 16 165/93 (117) 98 98.3 Exam Gen: 53-year-old male in no apparent distress Skin: Warm, dry, normal color and texture, no rash. HEENT: Normocephalic atraumatic, mucous membranes moist and pink. Neck: Cervical and supraclavicular nodes normal without enlargement, trachea is midline, thyroid gland is normal without masses. Pulmonary: Clear to auscultation and percussion bilaterally. Cardiac: Regular rate and rhythm. No murmur Abdomen: Soft, nontender, nondistended, bowel sounds present all 4 quadrants, no guarding, no rigidity, no organomegaly. Extremities: No cyanosis, clubbing, no edema Neuro: Cranial nerves II through XII grossly intact, normal affect and speech, no focal motor deficits. Labs/Xrays Labs Test 10/31/24 15:50 Range/Units White Blood Count 5.3 4.4-10.8 10^3/uL Red Blood Count 3.53 L 4.5-5.90 10^6/uL Hemoglobin 11.4 L 13.5-17.5 g/dL Hematocrit 33.2 L 41.0-53.0 % Mean Corpuscular Volume 94.0 80.0-100.0 fL Mean Corpuscular Hemoglobin 32.2 H 28.0-32.0 pg Mean Corpuscular Hemoglobin Concent 34.3 32.0-36.0 g/dL Red Cell Distribution Width 16.8 H 11.8-14.3 % Platelet Count 287 140-450 10^3/uL Mean Platelet Volume 6.7 L 6.9-10.8 fL Neutrophils (%) (Auto) 53.0 37.0-80.0 % Lymphocytes (%) (Auto) 33.8 10.0-50.0 % Monocytes (%) (Auto) 9.5 0.0-12.0 % Eosinophils (%) (Auto) 3.0 0.0-7.0 % Basophils (%) (Auto) 0.7 0.0-2.0 % Neutrophils # (Auto) 2.8 1.6-8.6 10 ^3/uL Lymphocytes # (Auto) 1.8 0.4-5.4 10 ^3/uL Monocytes # (Auto) 0.5 0-1.3 10 ^3/uL Eosinophils # (Auto) 0.2 0-0.8 10 ^3/uL Basophils # (Auto) 0 0-0.2 10 ^3/uL Nucleated Red Blood Cells 0.1 % Prothrombin Time 10.1 9.3-11.8 sec Prothrombin Time INR 0.95 0.9-1.15 Activated Partial Thromboplast Time 26.4 24.5-34.5 SEC Sodium Level 142 136-145 mmol/L Potassium Level 4.9 3.5-5.1 mmol/L Chloride Level 111 H 98-107 mmol/L Carbon Dioxide Level 21 20-31 mmol/L Anion Gap 10 5-15 Blood Urea Nitrogen 48 H 9-23 mg/dL Creatinine 5.34 H 0.700-1.30 mg/dL Glomerular Filtration Rate Calc 12 >90 mL/min BUN/Creatinine Ratio 9.0 L 10.0-20.0 Serum Glucose 170 H 74-106 mg/dL Calcium Level 9.2 8.7-10.4 mg/dL Total Bilirubin 0.3 0.2-1.0 mg/dL Aspartate Amino Transferase (AST) 14 13-40 U/L Alanine Aminotransferase (ALT) 17 7-40 U/L Alkaline Phosphatase 85 46-116 U/L Total Protein 6.2 5.7-8.2 g/dL Albumin 4.2 3.2-4.8 g/dL SEPSIS Sepsis Screen Date sepsis recognized/suspect: Oct 31, 2024 Time Sepsis recognized/suspect: 1425 Recent Procedure: No On Antibiotic Therapy: No Respiratory Rate >20: No Heart Rate >90: No Temp<36 C (96.8 F) or >38.3 C: No SBP <90 or MAP <65 mmHG: No New Acute Mental Status Change: No Is the patient on CPAP, BIPAP,: No Physician Orders Admit (10/31/24 19:24) *Dr. Guaman [facility] (10/31/24 19:27) Hydralazine Hcl Tablet (Apresoline Table (10/31/24 22:00) Apixaban (Eliquis) (10/31/24 22:00) Atorvastatin (Lipitor) (10/31/24 22:00) Bumetanide Tablet (Bumex Tablet) (11/01/24 10:00) Carvedilol Tablet (Coreg Tablet) (10/31/24 22:00) Isosorbide Dinitrate Tablet (Isordil Tab (11/01/24 06:00) Levetiracetam Tablet (Keppra Tablet) (10/31/24 22:00) Basic Metabolic Panel (11/01/24 04:00) Renal Standard(2gna,3gk,Lopho) (11/01/24 Breakfast) Ondansetron Hcl (Zofran) (10/31/24 19:30) Condition: Stable (10/31/24 19:27) Acetaminophen Tablet (Tylenol Tablet) (10/31/24 19:30) Bedrest With Bathroom Privileg (10/31/24 19:27) Vital Signs Date Time Temp Pulse Resp B/P (MAP) Pulse Ox O2 Delivery O2 Flow Rate FiO2 10/31/24 19:46 98.3 90 16 165/93 (117) 98 98.3 Laboratory Tests Test 10/31/24 15:50 White Blood Count 5.3 10^3/uL (4.4-10.8) Assessment/Plan Assessment/Plan Assessment End-stage renal disease, dialysis dependent Hypertension History of seizures CHF Plan Admit the patient to [facility] to the hospitalist Dialysis catheter was re-sutured Nephrology consult was placed Resume home medications Continue treatment per orders. Plan discussed with: Patient My Orders Orders - LUIS MCLAUGHLIN AGACNElaine Procedure Category Date Status Time Admit ADMIT 10/31/24 Transmitted 19:24 *Dr. Guaman [facility] CONS 10/31/24 Transmitted -[place] 19:27 Hydralazine Hcl PHA 10/31/24 In Process Tablet (Apresoline 22:00 Apixaban (Eliquis) PHA 10/31/24 In Process 22:00 Atorvastatin (Lipitor) PHA 10/31/24 In Process 22:00 Bumetanide Tablet PHA 11/01/24 In Process (Bumex Tablet) 10:00 Carvedilol Tablet PHA 10/31/24 In Process (Coreg Tablet) 22:00 Isosorbide Dinitrate PHA 11/01/24 In Process Tablet (Isordil Tab 06:00 Levetiracetam Tablet PHA 10/31/24 In Process (Keppra Tablet) 22:00 Basic Metabolic Panel LAB 11/01/24 Logged 04:00 Renal DIET 11/01/24 Transmitted Standard(2gna,3gk,Lopho) Breakfast Ondansetron Hcl PHA 10/31/24 In Process (Zofran) 19:30 Condition: Stable YOLY 10/31/24 In Process 19:27 Acetaminophen Tablet PHA 10/31/24 In Process (Tylenol Tablet) 19:30 Bedrest With Bathroom YOLY 10/31/24 In Process Privileg 19:27 Date of Service: Oct 31, 2024 Billing Provider: LUIS MCLAUGHLIN Common Visit Codes: [id number] INP/OBS CARE (MOD) LUIS MCLAUGHLIN Nov 01, 2024 00:39
[2024-11-01 00:47] VITALS: BP 164/101; PULSE 88; RESP 16; TEMP 97.5; O2SAT 98
[2024-11-01] MEDS ORDERED: ISOSORBIDE DINITRATE 10 MG TAB PO SCH (06:00)
[2024-11-01] MEDS: levETIRAcetam 500 MG TAB PO SCH (08:55)
[2024-11-01] MEDS: CARVEDILOL 12.5 MG TAB PO SCH (08:55)
[2024-11-01] MEDS: ATORVASTATIN 20 MG TAB PO SCH (08:55)
[2024-11-01] MEDS: APIXABAN 2.5 MG TAB PO SCH (08:55)
[2024-11-01] MEDS: LIDOCAINE 1% HCL (LOCAL ANESTH.) INJ 20ML MDV ONE (08:55)
[2024-11-01] MEDS ORDERED: BUMETANIDE 1 MG TAB PO SCH (10:00)
--- NOTE | 2024-11-01 14:27 | DVHDS2 ---
Discharge Summary Date of Admission Oct 31, 2024 at 19:24 Date of Discharge: Nov 01, 2024 Labs/Diagnostic Data: Laboratory Results Test 10/31/24 15:50 White Blood Count 5.3 10^3/uL (4.4-10.8) Red Blood Count 3.53 10^6/uL (4.5-5.90) Hemoglobin 11.4 g/dL (13.5-17.5) Hematocrit 33.2 % (41.0-53.0) Mean Corpuscular Volume 94.0 fL (80.0-100.0) Mean Corpuscular Hemoglobin 32.2 pg (28.0-32.0) Mean Corpuscular Hemoglobin Concent 34.3 g/dL (32.0-36.0) Red Cell Distribution Width 16.8 % (11.8-14.3) Platelet Count 287 10^3/uL (140-450) Mean Platelet Volume 6.7 fL (6.9-10.8) Neutrophils (%) (Auto) 53.0 % (37.0-80.0) Lymphocytes (%) (Auto) 33.8 % (10.0-50.0) Monocytes (%) (Auto) 9.5 % (0.0-12.0) Eosinophils (%) (Auto) 3.0 % (0.0-7.0) Basophils (%) (Auto) 0.7 % (0.0-2.0) Neutrophils # (Auto) 2.8 10 ^3/uL (1.6-8.6) Lymphocytes # (Auto) 1.8 10 ^3/uL (0.4-5.4) Monocytes # (Auto) 0.5 10 ^3/uL (0-1.3) Eosinophils # (Auto) 0.2 10 ^3/uL (0-0.8) Basophils # (Auto) 0 10 ^3/uL (0-0.2) Nucleated Red Blood Cells 0.1 % Prothrombin Time 10.1 sec (9.3-11.8) Prothrombin Time INR 0.95 (0.9-1.15) Activated Partial Thromboplast Time 26.4 SEC (24.5-34.5) Sodium Level 142 mmol/L (136-145) Potassium Level 4.9 mmol/L (3.5-5.1) Chloride Level 111 mmol/L (98-107) Carbon Dioxide Level 21 mmol/L (20-31) Anion Gap 10 (5-15) Blood Urea Nitrogen 48 mg/dL (9-23) Creatinine 5.34 mg/dL (0.700-1.30) Glomerular Filtration Rate Calc 12 mL/min (>90) BUN/Creatinine Ratio 9.0 (10.0-20.0) Serum Glucose 170 mg/dL (74-106) Calcium Level 9.2 mg/dL (8.7-10.4) Total Bilirubin 0.3 mg/dL (0.2-1.0) Aspartate Amino Transferase (AST) 14 U/L (13-40) Alanine Aminotransferase (ALT) 17 U/L (7-40) Alkaline Phosphatase 85 U/L (46-116) Total Protein 6.2 g/dL (5.7-8.2) Albumin 4.2 g/dL (3.2-4.8) Other Laboratory Tests 10/31/24 15:50 Brief Hx & Hospital Course: 53-year-old male with a known history of chronic AFib currently on Eliquis, hypertension, dyslipidemia, insulin-dependent diabetes mellitus type 2, seizure disorder, end-stage renal disease on hemodialysis initially presented to the hospital as his dialysis catheter stitches were coming off and he was concerned about malfunctioning. He missed his dialysis session as well. Patient was eventually admitted but patient eloped from the ER. Condition at Discharge: Undetermined Final Diagnosis/Problems List 1. Malfunctioning dialysis catheter 2. End-stage renal disease on hemodialysis 3. Chronic AFib 4. Hypertension 5. Dyslipidemia 6. Insulin-dependent diabetes mellitus type 2 7. Seizure disorder Noncompliance, patient eloped Discharge Disposition: Eloped SNF Discharge Will this Physician continue t: No Discharge Instruct/Medications Scheduled Acyclovir (Acyclovir), 800 MG PO TID Apixaban Base (Eliquis), 2.5 MG PO BID Atorvastatin Calcium (Lipitor), 40 MG PO DAILY Brimonidine Tartrate (Alphagan P), 0.1 % OP TID Bumetanide (Bumetanide), 1 TAB PO DAILY Carvedilol (Coreg), 12.5 MG PO Q12HR Dorzolamide HCl-Timolol Maleat (Cosopt 2-0.5 %), 1 KEERTHI OP BID Hydralazine Hcl (Hydralazine Hcl), 25 MG PO TID Isosorbide Dinitrate (Isosorbide Dinitrate), 2 TAB PO TID@0600,1200,1800 Levetiracetam (Levetiracetam), 1 TAB PO GERARD, (Reported) Levetiracetam (Levetiracetam), 1 TAB PO BID Olopatadine HCl (Olopatadine Hydrochloride), 1 DROP LEFTEYE BID, (Reported) Scheduled PRN Hydrocodone-Acetaminophen (Hydrocodone Bitartrate/AC 5-325 mg), 1 TAB PO Q6HP PRN Hydrocodone-Acetaminophen (Hydrocodone Bitartrate/AC 5-325 mg), 1-2 TAB PO Q6HP PRN Miscellaneous Medications Insulin Lispro (Insulin Lispro Thai Kwi), (Reported) Quetiapine Fumerate (Quetiapine Fumarate), 1 TAB PO, (Reported) Discharge Statement: "Patient was advised to return to the ER or call 911 if any headaches, dizziness, shortness of breath, chest pain, abdominal pain, bleeding, fevers, or worsening of medical condition. Patient was counseled about treatment plan, medications, possible side effects, patientverbalized understanding. All questions were answered to the best of my ability. This discharge took greater then 30 minutes in planning, reviewing documentation, counseling the patient, and discussing with other team members." ASSESSMENT ASSESSMENT Assessment Date of Service: Nov 01, 2024 Billing Provider: KASIA JUAREZ MD Common Visit Codes: 81921-QYL/OBS DISCH DAY >30min KASIA JUAREZ MD Nov 01, 2024 14:27
== END 2024-11-01 11:59 | disposition left against medical advice (07) | DRG 466 ==
LOC: ER 14:32 → OVERFLOW 19:24
PROVIDERS: ADMIT Hospitalist; ATTEND Hospitalist
DX: T82.41XA Breakdown (mechanical) of vascular dialysis catheter, initial encounter (principal); N18.6 End stage renal disease; I13.2 Hypertensive heart and chronic kidney disease with heart failure and with stage 5 chronic kidney disease, or end stage renal disease; E11.22 Type 2 diabetes mellitus with diabetic chronic kidney disease; I48.20 Chronic atrial fibrillation, unspecified; E78.5 Hyperlipidemia, unspecified; G40.909 Epilepsy, unspecified, not intractable, without status epilepticus; F20.9 Schizophrenia, unspecified; I50.9 Heart failure, unspecified; Y71.2 Prosthetic and other implants, materials and accessory cardiovascular devices associated with adverse incidents; Z86.73 Personal history of transient ischemic attack (TIA), and cerebral infarction without residual deficits; Z88.1 Allergy status to other antibiotic agents; Z88.0 Allergy status to penicillin; Z99.2 Dependence on renal dialysis; Z91.199 Patient's noncompliance with other medical treatment and regimen due to unspecified reason; Y92.89 Other specified places as the place of occurrence of the external cause; Z79.4 Long term (current) use of insulin; Z79.01 Long term (current) use of anticoagulants
CPT/HCPCS: 36415; 80053; 85025; 85610; 85730; G0378; J2003

== ENCOUNTER 2024-11-16 16:40 | Inpatient (IN) | payer MEDICAID ==
[~2024-11-16] VITALS: Ht 182.9 cm; Wt 92.6 kg
--- NOTE | 2024-11-16 16:48 | ECG ---
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
--- NOTE | 2024-11-16 17:41 | ED.PDOC ---
HPI Comments 53-year-old, legally blind male presents with chief complaint of chest pain. Significant history of AFib - on Eliquis, CAD, CHF, CVA, DM II - insulin dependent, ESRD, HLD, HTN, schizophrenia, and seizures. No endorsement of any recent stressors, strenuous activities, sick contact, travel, substance use, or further pertinent history or events. Denies having any shortness of breath, nausea, vomiting, dizziness, lightheadedness, or further associated symptoms at this time. Chief Complaint: Chest Pain Time Seen by MD: 17:15 Primary Care Provider: KELLIE Reviewed Notes: Nurses Notes, Medications, Allergies Allergies: Coded Allergies: Erythromycin (Verified Allergy, Unknown, 04/17/24) Penicillins (Verified Allergy, Unknown, 04/17/24) Home Meds Active Scripts Hydrocodone-Acetaminophen (Hydrocodone Bitartrate/AC 5-325 mg) 1 Tab Tab, 1-2 TAB PO Q6HP PRN, #30 TAB Prov:QASIM BEJARANO MD 10/28/24 Dorzolamide HCl-Timolol Maleat (Cosopt 2-0.5 %) 1 Keerthi Keerthi, 1 KEERTHI OP BID for 30 Days, #10 ML 1 Refill Prov:GULSHAN JIMENEZ 10/11/24 Brimonidine Tartrate (Alphagan P) 0.1 % Keerthi, 0.1 % OP TID for 30 Days, #10 ML 1 Refill Prov:GULSHAN JIMENEZ 10/11/24 Acyclovir (Acyclovir) 400 Mg Tab, 800 MG PO TID for 14 Days, #84 TAB Prov:HILDA MURPHY MD 09/05/24 Isosorbide Dinitrate (Isosorbide Dinitrate) 10 Mg Tab, 2 TAB PO TID@0600,1200,1800 for 5 Days, #30 TAB Prov:BERTRAM LARKIN 08/23/24 Hydralazine Hcl (Hydralazine Hcl) 25 Mg Tab, 25 MG PO TID for 90 Days, #270 TAB Prov:BERTRAM LARKIN 08/23/24 Carvedilol (COREG) 12.5 Mg Tab, 12.5 MG PO Q12HR for 30 Days, #60 TAB Prov:BERTRAM LARKIN 6/3/25 Apixaban Base (ELIQUIS) 2.5 Mg Tab, 2.5 MG PO BID for 30 Days, #60 TAB Prov:JARAMILLO BERTRAM Castrejon [facility] 08/23/24 Atorvastatin Calcium (Lipitor) 40 Mg Tab, 40 MG PO DAILY for 40 Days, #40 TAB Prov:CLINT BERTRAM Castrejon [facility] 08/23/24 Bumetanide (Bumetanide) 1 Mg Tab, 1 TAB PO DAILY for 30 Days, #30 TAB Prov:CLINT BERTRAM Castrejon [facility] 08/23/24 Levetiracetam (Levetiracetam) 1,000 Mg Tab, 1 TAB PO BID for 30 Days, #60 TAB Prov:JARAMILLO BERTRAM Castrejon [facility] 08/23/24 Hydrocodone-Acetaminophen (Hydrocodone Bitartrate/AC 5-325 mg) 1 Tab Tab, 1 TAB PO Q6HP PRN, #20 TAB Prov:MYRIAM CORNELIUS MD 08/06/24 Reported Medications Levetiracetam (Levetiracetam) 750 Mg Tab, 1 TAB PO GERARD for 30 Days, #60 TAKE 1 TABLET BY MOUTH ALONG WITH 1000 MG TWICE DAILY ON DIALYSIS DAYS. 08/16/24 Quetiapine Fumerate (QUETIAPINE FUMARATE) 50 Mg Tab, 1 TAB PO 06/07/24 Insulin Lispro (Insulin Lispro Thai Kwi) 100 Unit/Ml Inj 06/07/24 Olopatadine HCl (Olopatadine Hydrochloride) 0.1 % Melchor, 1 DROP LEFTEYE BID 06/07/24 Information Source: Patient Mode of Arrival: Ambulatory Severity: Moderate Past Medical History PAST MEDICAL HISTORY: AFIB (On Eliquis), CAD, CHF, CVA, DM (Insulin-dependent type 2), ESRD, High Lipids, HTN, Schizophrenia, Seizures Past Medical History (Other): Legally blind Surgical History: Denies all surgeries Family History Family History: Reviewed,noncontributory to illness Social History Smoker: Non-Smoker Alcohol: Denies ETOH Use Drugs: Denies Drug Use Lives In: Assisted Care All Other Systems: Reviewed and Negative (Comprehensive systems review obtained and negative except for what is stated in the HPI.) Physical Exam General Appearance: Moderate Distress HEENT: Normal ENT Inspection, Pharynx Normal, TMs Normal Neck: Full Range of Motion, Non-Tender, Normal, Normal Inspection Respiratory: Chest Non-Tender, Lungs Clear, No Accessory Muscle Use, No Respiratory Distress, Normal Breath Sounds Cardiovascular: No Edema, No JVD, No Murmur, No Gallop, Normal Peripheral Pulses, Regular Rate/Rhythm Breast Exam: Deferred Gastrointestinal: No Organomegaly, Non Tender, No Pulsatile Mass, Normal Bowel Sounds, Soft Genitalia: Deferred Pelvic: Deferred Rectal: Deferred Extremities: No calf tenderness, Normal capillary refill, Normal inspection, Normal range of motion, Non-tender, No pedal edema Musculoskeletal : Apperance: Normal Neurologic: Alert, soda maker II-XII nml as Tested, No Motor Deficits, Normal Affect, Normal Mood, No Sensory Deficits Cerebellar Function: NOT DONE Reflexes: NOT DONE Skin: Normal Color Peripheral Pulses: 3+ Radial (R), 3+ Radial (L) Lymphatic: No Adenopathy EKG EKG : Pulse Rate (adult): 95 Kamrar: Normal Cardiac Rhythm: NSR Block: None Hypertrophy: None ST: Old, Ant, Infarct Was a procedure done? Was a procedure done?: No CP Differential Dx Differential Diagnosis: A-fib, A-Flutter, Angina, Anxiety / Panic Attack, Atrial Dysrhythmia, Electrolyte Disorder, N/A Differential Diagnosis: N/A Differential Diagnosis: Angina, Chest Wall Pain, Cholelithiasis, Costochondritis, Esophageal reflux/spasm, Gastritis, Myocardial Infarction, Pericarditis, Pneumonia, Pulmonary Embolus X-Ray, Labs, Meds, VS Vital Signs Date Time Temp Pulse Resp B/P (MAP) Pulse Ox O2 Delivery O2 Flow Rate FiO2 11/16/24 17:41 95 11/16/24 16:49 97.9 97 18 195/115 99 97.9 207/119 11/16/24 16:47 95 Lab Test 11/16/24 17:00 Range/Units Troponin I High Sensitivity 22 </=54 ng/L Patient alert pain Came in because of chest pain. History of chronic kidney disease on dialysis. Blood pressure elevated. Was given clonidine. . EKG does not show any acute process. Cardiac marker within normal limits. Continues to have chest pain. Nephrology consultation. Explained to the patient. Continue to monitor. Time of 1ST Reevaluation: 17:40 Reevaluation 1ST: Unchanged Patient Education/Counseling: Diagnosis, Treatment Family Education/Counseling: No Family Present SEPSIS Sepsis Screen Date sepsis recognized/suspect: Nov 16, 2024 Time Sepsis recognized/suspect: 7 Recent Procedure: No On Antibiotic Therapy: No Respiratory Rate >20: No Heart Rate >90: Yes Temp<36 C (96.8 F) or >38.3 C: No SBP <90 or MAP <65 mmHG: No New Acute Mental Status Change: No Is the patient on CPAP, BIPAP,: No Physician Orders Troponin-I Hs (11/16/24 17:45) Troponin-I Hs (11/16/24 19:45) Electrocardigram (11/16/24 17:45) Electrocardigram (11/16/24 19:45) Complete Blood Count (11/16/24 17:17) Comprehensive Metabolic Panel (11/16/24 17:17) Chest Portable (11/16/24 17:17) Urinalysis (11/16/24 17:17) *[facility] (11/16/24 17:17) Vital Signs Date Time Temp Pulse Resp B/P (MAP) Pulse Ox O2 Delivery O2 Flow Rate FiO2 11/16/24 17:41 95 11/16/24 16:49 97.9 97 18 195/115 99 97.9 207/119 11/16/24 16:47 95 Departure 1 Departure Time of Disposition: 17:52 Impression: Primary Impression: Chest pain of unknown etiology Additional Impressions: Hypertensive emergency Uncontrolled diabetes mellitus Qualified Codes: E13.65 - Other specified diabetes mellitus with hyperglycemia Disposition: ADMITTED INPATIENT Admit to: Med Surg Condition: Guarded Critical Care Note Critical Care Time?: Yes (90 min-critical care time only) Stability Stability form required: No Heart Score Heart Score: Heart Score Response (Comments) Value History Moderate Suspicious 1 EKG Normal 0 Age 45-64 1 Risk Factors >3 or Hx ASHD 2 Troponin Normal limit 0 Total 4 I personally scribed for CHIKIS OLIVAREZ MD ([email or web address]) on 11/16/24 at 17:41. Electronically submitted by Kurt Jacinto ([email or web address]). CHIKIS OLIVAREZ MD Nov 16, 2024 17:41
--- NOTE | 2024-11-16 18:06 | ECG ---
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
[2024-11-16 18:15] LABS: Hematocrit 31.7 % (41.0-53.0); Hemoglobin 11.0 g/dL (13.5-17.5); Mean Corpuscular Hemoglobin 32.1 pg (28.0-32.0); Mean Corpuscular Volume 92.3 fL (80.0-100.0); Nucleated Red Blood Cells % 0.1 %
[2024-11-16 18:23] LABS: Alanine Aminotransferase 21 U/L (7-40); Albumin 4.0 g/dL (3.2-4.8); Alkaline Phosphatase 94 U/L (46-116); Anion Gap 13 (5-15); BUN/Creatinine Ratio 8.1 (10.0-20.0); Bilirubin, Total 0.3 mg/dL (0.2-1.0); Carbon Dioxide 20 mmol/L (20-31); Potassium 4.8 mmol/L (3.5-5.1); Sodium 143 mmol/L (136-145); Total Protein 6.0 g/dL (5.7-8.2)
[2024-11-16 18:30] VITALS: PULSE 94; RESP 17; O2SAT 94
--- NOTE | 2024-11-16 18:35 | DVH ---
EXAM: XY CHEST PORTABLE TECHNIQUE: Single frontal chest radiograph CLINICAL HISTORY: sob COMPARISON: XY CHEST XRAY 1 VIEW on DOS: 10/28/24, XY CHEST XRAY 1 VIEW on DOS: 10/10/24, XY CHEST XRAY 1 VIEW on DOS: 09/16/24 Findings/Impression: Frontal chest radiograph demonstrates no acute osseous or superficial soft tissue abnormalities. Tunneled right-sided HD catheter terminates in the right atrium. The trachea is midline. The cardiac silhouette and mediastinum are within normal limits. No pneumothorax, pleural effusions, or consolidations.
[2024-11-16 18:41] LABS: Blood Urea Nitrogen 48 mg/dL (9-23); Calcium 8.6 mg/dL (8.7-10.4); Chloride 110 mmol/L (98-107); Glucose 138 mg/dL (74-106)
[2024-11-16 19:50] VITALS: O2SAT 96
[2024-11-16] MEDS: hydrALAZINE HCL 20 MG/ML VL ONE (20:24)
[2024-11-16] MEDS: hydrALAZINE HCL 20 MG/ML VL IV ONE ×2 (20:25→23:23)
[2024-11-16] MEDS: MORPHINE SULFATE INJ 2 MG/ml SYRG ONE (20:41)
[2024-11-16 22:30] LABS: Urine Protein, UAD 3+ (Negative)
[2024-11-16] MEDS: MORPHINE SULFATE INJ 2 MG/ml SYRG IV PRN (22:33)
[2024-11-17] MEDS ORDERED: DEXTROSE (50%) 50ML SYRG IV PRN (01:45)
[2024-11-17] MEDS ORDERED: NITROGLYCERIN 0.4 MG SL TAB SL PRN (01:45)
[2024-11-17] MEDS: ONDANSETRON HCL 4 MG/2 ML VIAL IV PRN (02:01)
--- NOTE | 2024-11-17 03:49 | DVHHP2 ---
History of Present Illness Reason for Visit: Hypertension History of Present Illness 63-year-old male presents for evaluation of hypertension. Patient reports elevated blood pressure in the 180s for the past couple of days. He was supposed to be dialyzed yesterday but could not make it to the dialysis center due to elevated blood pressure. He states having mild left-sided chest pain. No shortness a breath. No headache or blurred vision. Past Medical History End-stage renal disease, AFib, CHF, diabetes mellitus, schizophrenia, seizures Past Surgical History Dialysis access Family History Noncontributory Smoke: No ALCOHOL: none Drugs: None Review of Systems Review of Systems Review of systems are currently negative otherwise addressed in HPI. Allergies: Coded Allergies: Erythromycin (Verified Allergy, Unknown, 04/17/24) Penicillins (Verified Allergy, Unknown, 04/17/24) Medications Current Medications Medications Dose Ordered Sig/Misty Route Start Time Stop Time Status Last Admin Dose Admin Bumetanide 1 mg DAILY PO 11/17/24 10:00 Apixaban 2.5 mg BID PO 11/17/24 10:00 Atorvastatin Calcium 40 mg HS PO 11/17/24 22:00 Carvedilol 12.5 mg Q12HR PO 11/17/24 10:00 Hydralazine HCl 50 mg Q8HR PO 11/17/24 06:00 Isosorbide Dinitrate 20 mg TID@06,12,18 PO 11/17/24 06:00 Levetiracetam 1,000 mg BID PO 11/17/24 10:00 Hydralazine HCl 10 mg Q6HP PRN IV 11/17/24 01:45 Diagnostic Test (Pha) 1 strip ACHS 11/17/24 07:00 Insulin Human Regular ACHS SC 11/17/24 07:00 Dextrose 50 ml UD PRN IV 11/17/24 01:45 Ondansetron HCl 4 mg Q4HP PRN IV 11/17/24 01:45 11/17/24 02:01 4 MG Acetaminophen 650 mg Q6HP PRN PO 11/17/24 01:45 Nitroglycerin 0.4 mg Q5MINP PRN SL 11/17/24 01:45 Morphine Sulfate 2 mg Q30M PRN IV 11/17/24 01:45 Exam Vital Signs Vital Signs Date Time Temp Pulse Resp B/P (MAP) Pulse Ox O2 Delivery O2 Flow Rate FiO2 8/28/25 00:00 99 11/16/24 23:24 18 190/101 11/16/24 20:26 98 11/16/24 18:30 98.4 98.4 11/16/24 18:30 Room Air* 0 21 Exam Gen: 53-year-old male in mild distress Skin: Warm, dry, normal color and texture, no rash. HEENT: Normocephalic atraumatic, mucous membranes moist and pink. Neck: Cervical and supraclavicular nodes normal without enlargement, trachea is midline, thyroid gland is normal without masses. Pulmonary: Clear to auscultation and percussion bilaterally. Cardiac: Regular rate and rhythm. No murmur Abdomen: Soft, nontender, nondistended, bowel sounds present all 4 quadrants, no guarding, no rigidity, no organomegaly. Extremities: No cyanosis, clubbing, no edema Neuro: Cranial nerves II through XII grossly intact, normal affect and speech, no focal motor deficits. Labs/Xrays ORDERING PHYSICIAN: PRIYANK SUÁREZ MD PROCEDURE(s): ECIDC - ECHO 2D MODE CARDIAC DOP REASON: Syncope ORDER NUMBER(s): [id number], ACCESSION NUMBER(s): [id number] APPROVED REPORT EXAM: Two-dimensional and M-mode echocardiogram with Doppler and color Doppler. Blood Pressure: 153/96 mmHg INDICATION Syncope RISK FACTORS Height: 6', Weight: 204 DIMENSIONS LVDd 4.6 (3.8-5.7cm) LA (2D) 3.8 (1.9-4.0cm) Aortic Root 3.2 (2.0- 3.7cm) LVDs 3.5 (2.5-4.0cm) LA (MM) (1.9-4.0cm) Aortic Cusp Exc 2.0 (1.5- 2.0cm) EF (%) 47.0 (55-70%) Rt. Atrium 3.1 (1.9-4.0cm) Asc. Aorta cm IVSd 1.2 (0.7-1.1cm) RV (D) 3.2 (1.8-2.4cm) PWd 1.1 (0.7-1.1cm) Mitral Valve Mitral Mitral Stenosis E/A ratio 0.0 2D MVA cm2 Aortic Valve Aortic Valve Aortic Stenosis V1 0.93m/s AO Mean GR. 3mmHg V2 0.94m/s AO Peak GR. 4mmHg LVOT Diameter 2.4 (1.8-2.4cm) Doppler KAILA 4.47cm2 Pulmonic Valve V2 1.02m/s Other Information Quality : Technically Limited Rhythm : Technically limited study due to body habitus. Conclusion lvef 50% moderate LVH low normal rv function left atrium enlarged borderline ORDERING PHYSICIAN: CHIKIS OLIVAREZ MD PROCEDURE(s): CXRP - CHEST PORTABLE REASON: sob ORDER NUMBER(s): [id number], ACCESSION NUMBER(s): [id number] EXAM: XY CHEST PORTABLE TECHNIQUE: Single frontal chest radiograph CLINICAL HISTORY: sob COMPARISON: XY CHEST XRAY 1 VIEW on DOS: 10/28/24, XY CHEST XRAY 1 VIEW on DOS: 10/10/24, XY CHEST XRAY 1 VIEW on DOS: 09/16/24 Findings/Impression: Frontal chest radiograph demonstrates no acute osseous or superficial soft tissue abnormalities. Tunneled right-sided HD catheter terminates in the right atrium. The trachea is midline. The cardiac silhouette and mediastinum are within normal limits. No pneumothorax, pleural effusions, or consolidations. Labs Test 11/16/24 21:50 11/16/24 17:57 11/16/24 17:00 Range/Units Urine Color Light-yellow Yellow Urine Clarity Clear Clear Urine pH 7.0 5.0-9.0 Urine Specific [place] 1.013 1.001-1.035 Urine Protein 3+ H Negative Urine Ketones Negative Negative Urine Blood 1+ H Negative /uL Urine Nitrite Negative Negative Urine Bilirubin Negative Negative Urine Urobilinogen Normal Negative mg/dL Urine Leukocyte Esterase Negative Negative /uL Urine RBC 2 0 - 3 /hpf Urine Microscopic WBC 1 0-3 /HPF Urine Squamous Epithelial Cells None seen <5 /hpf Urine Bacteria None seen None Seen /hpf Urine Hyaline Casts Few 0 - 2 /lpf Urine Glucose 2+ H Normal mg/dL Troponin I High Sensitivity 23 </=54 ng/L White Blood Count 7.4 4.4-10.8 10^3/uL Red Blood Count 3.43 L 4.5-5.90 10^6/uL Hemoglobin 11.0 L 13.5-17.5 g/dL Hematocrit 31.7 L 41.0-53.0 % Mean Corpuscular Volume 92.3 80.0-100.0 fL Mean Corpuscular Hemoglobin 32.1 H 28.0-32.0 pg Mean Corpuscular Hemoglobin Concent 34.8 32.0-36.0 g/dL Red Cell Distribution Width 16.1 H 11.8-14.3 % Platelet Count 234 140-450 10^3/uL Mean Platelet Volume 7.4 6.9-10.8 fL Neutrophils (%) (Auto) 67.8 37.0-80.0 % Lymphocytes (%) (Auto) 21.2 10.0-50.0 % Monocytes (%) (Auto) 8.1 0.0-12.0 % Eosinophils (%) (Auto) 2.2 0.0-7.0 % Basophils (%) (Auto) 0.7 0.0-2.0 % Neutrophils # (Auto) 5.0 1.6-8.6 10 ^3/uL Lymphocytes # (Auto) 1.6 0.4-5.4 10 ^3/uL Monocytes # (Auto) 0.6 0-1.3 10 ^3/uL Eosinophils # (Auto) 0.2 0-0.8 10 ^3/uL Basophils # (Auto) 0.1 0-0.2 10 ^3/uL Nucleated Red Blood Cells 0.1 % Sodium Level 143 136-145 mmol/L Potassium Level 4.8 3.5-5.1 mmol/L Chloride Level 110 H 98-107 mmol/L Carbon Dioxide Level 20 20-31 mmol/L Anion Gap 13 5-15 Blood Urea Nitrogen 48 H 9-23 mg/dL Creatinine 5.95 H 0.700-1.30 mg/dL Glomerular Filtration Rate Calc 11 >90 mL/min BUN/Creatinine Ratio 8.1 L 10.0-20.0 Serum Glucose 138 H 74-106 mg/dL Calcium Level 8.6 L 8.7-10.4 mg/dL Total Bilirubin 0.3 0.2-1.0 mg/dL Aspartate Amino Transferase (AST) 21 13-40 U/L Alanine Aminotransferase (ALT) 21 7-40 U/L Alkaline Phosphatase 94 46-116 U/L Total Protein 6.0 5.7-8.2 g/dL Albumin 4.0 3.2-4.8 g/dL SEPSIS Sepsis Screen Date sepsis recognized/suspect: Nov 16, 2024 Time Sepsis recognized/suspect: 2019 Recent Procedure: No On Antibiotic Therapy: No Respiratory Rate >20: No Heart Rate >90: No Temp<36 C (96.8 F) or >38.3 C: No SBP <90 or MAP <65 mmHG: No New Acute Mental Status Change: No Is the patient on CPAP, BIPAP,: No Physician Orders Bumetanide Tablet (Bumex Tablet) (11/17/24 10:00) Apixaban (Eliquis) (11/17/24 10:00) Atorvastatin (Lipitor) (11/17/24 22:00) Carvedilol Tablet (Coreg Tablet) (11/17/24 10:00) Hydralazine Hcl Tablet (Apresoline Table (11/17/24 06:00) Isosorbide Dinitrate Tablet (Isordil Tab (11/17/24 06:00) Levetiracetam Tablet (Keppra Tablet) (11/17/24 10:00) Hydralazine Injection (Apresoline Inject (11/17/24 01:45) Consistent Carb(Ccho)Diabetes (11/17/24 Breakfast) Glucose Blood (Accu-Chek Comfort Curve T (11/17/24 07:00) Insulin R (Human) (Insulin R) (11/17/24 07:00) Dextrose 50% Syringe (11/17/24 01:45) Admit (11/17/24 01:39) Ondansetron Hcl (Zofran) (11/17/24 01:45) Condition: Fair (11/17/24 01:39) Acetaminophen Tablet (Tylenol Tablet) (11/17/24 01:45) Bedrest With Bathroom Privileg (11/17/24 01:39) Nitroglycerin Sublingual (Ntrostat Subli (11/17/24 01:45) Morphine Sulfate Injection (11/17/24 01:45) Stat Ekg For Chest Pain (11/17/24 01:39) Notify Of Changes From Base (11/17/24 01:39) Stylist Assistant For 24 Hours (11/17/24 01:39) Emergency Dysrhythmia Protocol (11/17/24 01:39) Rhythm Strips Once Every Shift (11/17/24 01:39) Oxygen By Nasal Cannula (11/17/24 01:39) Basic Metabolic Panel (11/18/24 04:00) Vital Signs Date Time Temp Pulse Resp B/P (MAP) Pulse Ox O2 Delivery O2 Flow Rate FiO2 11/17/24 00:00 99 11/16/24 23:24 98 18 190/101 11/16/24 23:23 190/101 11/16/24 23:23 97 19 190/101 11/16/24 22:33 96 17 193/101 11/16/24 22:30 101 19 190/101 (130) 11/16/24 20:41 102 14 180/89 11/16/24 20:26 94 18 216/115 (148) 98 11/16/24 20:25 221/139 11/16/24 20:24 221/139 11/16/24 20:00 87 Laboratory Tests Test 11/16/24 17:00 White Blood Count 7.4 10^3/uL (4.4-10.8) Medications Medications Dose Ordered Sig/Misty Route Start Time Stop Time Status Last Admin Dose Admin Hydralazine HCl 20 mg ONCE ONCE IV 11/16/24 20:15 11/16/24 20:16 DC 11/16/24 20:25 20 MG Hydralazine HCl 20 mg ONCE ONCE IV 11/16/24 23:15 11/16/24 23:16 DC 11/16/24 23:23 20 MG Morphine Sulfate 2 mg [id number] PRN IV 11/16/24 20:30 11/17/24 02:04 DC 11/16/24 22:33 2 MG Morphine Sulfate 2 mg STK-MED ONCE .ROUTE 11/16/24 20:35 11/16/24 20:32 DC 11/16/24 20:41 2 MG Ondansetron HCl 4 mg Q4HP PRN IV 11/17/24 01:45 11/17/24 02:01 4 MG Assessment/Plan Assessment/Plan Assessment Hypertensive urgency Diabetes mellitus End-stage renal disease, dialysis dependent Legally blind Plan Admit the patient to telemetry to the hospitalist As needed antihypertensives Resume home medications Nephrology consultation Continue treatment per orders. Plan discussed with: Patient My Orders Orders - LUIS MCLAUGHLIN Procedure Category Date Status Time Bumetanide Tablet PHA 11/17/24 In Process (Bumex Tablet) 10:00 Apixaban (Eliquis) PHA 11/17/24 In Process 10:00 Atorvastatin (Lipitor) PHA 11/17/24 In Process 22:00 Carvedilol Tablet PHA 11/17/24 In Process (Coreg Tablet) 10:00 Hydralazine Hcl PHA 11/17/24 In Process Tablet (Apresoline 06:00 Isosorbide Dinitrate PHA 11/17/24 In Process Tablet (Isordil Tab 06:00 Levetiracetam Tablet PHA 11/17/24 In Process (Keppra Tablet) 10:00 Hydralazine Injection PHA 11/17/24 In Process (Apresoline Inject 01:45 Consistent DIET 11/17/24 Transmitted Carb(Ccho)Diabetes Breakfast Glucose Blood PHA 11/17/24 In Process (Accu-Chek Comfort 07:00 Insulin R (Human) PHA 11/17/24 In Process (Insulin R) 07:00 Dextrose 50% Syringe PHA 11/17/24 In Process 01:45 Admit ADMIT 11/17/24 Transmitted 01:39 Ondansetron Hcl PHA 11/17/24 In Process (Zofran) 01:45 Condition: Fair YOLY 11/17/24 In Process 01:39 Acetaminophen Tablet PHA 11/17/24 In Process (Tylenol Tablet) 01:45 Bedrest With Bathroom YOLY 11/17/24 In Process Privileg 01:39 Nitroglycerin PHA 11/17/24 In Process Sublingual (Ntrostat 01:45 Morphine Sulfate PHA 11/17/24 In Process Injection 01:45 Stat Ekg For Chest [facility] 11/17/24 In Process Pain 01:39 Notify Of Changes [facility] 11/17/24 In Process From Base 01:39 Stylist Assistant [address] [facility] 11/17/24 In Process 24 Hours 01:[address] [facility] 11/17/24 In Process Protocol 01:39 R[address] [facility] 11/17/24 In Process Every Shift 01:39 Oxygen By Nasal RT 11/17/24 Transmitted Cannula 01:39 Basic Metabolic Panel LAB 11/18/24 Verified 04:00 Date of Service: Nov 17, 2024 Billing Provider: LUIS MCLAUGHLIN Common Visit Codes: [id number] INP/OBS CARE (HIGH) LUIS MCLAUGHLIN Nov 17, 2024 03:48
[2024-11-17 05:32] VITALS: BP 134/66; PULSE 93; RESP 15; O2SAT 93
[2024-11-17] MEDS: ACCU-CHEK COMFORT CURVE STRIP VI SCH (06:38)
[2024-11-17] MEDS: ISOSORBIDE DINITRATE 10 MG TAB PO SCH (06:38)
[2024-11-17 06:39] VITALS: BP 166/96; PULSE 93; RESP 16; O2SAT 94
[2024-11-17] MEDS: InsuLIN REG 1unit/0.01ml Soln (100units/ml) SC SCH (06:39)
[2024-11-17] MEDS: ACETAMINOPHEN 325 MG TAB PO PRN (07:12)
[2024-11-17] MEDS: CARVEDILOL 12.5 MG TAB PO SCH (10:00)
[2024-11-17] MEDS: BUMETANIDE 1 MG TAB PO SCH (10:00)
[2024-11-17] MEDS: APIXABAN 2.5 MG TAB PO SCH (10:00)
[2024-11-17] MEDS: TIMOLOL MAL 0.5% OPTH(EYE) SOL 5ML EACHEYE SCH (10:06)
[2024-11-17] MEDS: levETIRAcetam 500 MG TAB PO SCH (10:06)
--- NOTE | 2024-11-17 12:17 | DVHCONRES ---
Date Seen: Nov 17, 2024 Resident Creating Document: CARLOS MERCEDES RESIDENT Reason for Consultation End-stage renal disease on dialysis History of Present Illness 53-year-old male with past medical history of hypertension, hyperlipidemia, diabetes mellitus two for last 25 years, end-stage renal disease on dialysis on Thursday since March 2024, heart failure with reduced ejection fraction, schizophrenia presented to the ED as he mentioned that he had high blood pressure at home greater than 200. Patient missed his dialysis because of that. He is also mentioning of chest pain, localized to the site of tunnel catheter on the right side He mentioned that he has vision difficulty likely because of diabetic retinopathy Mentioned no other active complaints including fever, chills, nausea, vomiting, abdominal pain, diarrhea, constipation Past medical history hypertension, hyperlipidemia, diabetes mellitus two for last 25 years, end- stage renal disease on dialysis on Thursday since March 2024, heart failure with reduced ejection fraction, schizophrenia Past surgical history Tunneled catheter placement on the right side Medication history Acyclovir, Eliquis, statins, Bumex, Coreg, hydralazine, Wallace, insulin, isosorbide, Keppra, quetiapine Social history Smoked two cigarettes every day for last 10 years, denied alcohol, marijuana, any other drug intake Allergic history Erythromycin and penicillins Family history Nonsignificant Past Medical History As per HPI Past Surgical History As per HPI Family History: Patient reports no known family medical history. Allergies: Coded Allergies: Erythromycin (Verified Allergy, Unknown, 04/17/24) Penicillins (Verified Allergy, Unknown, 04/17/24) Home Meds Active Scripts Hydrocodone-Acetaminophen (Hydrocodone Bitartrate/AC 5-325 mg) 1 Tab Tab, 1-2 TAB PO Q6HP PRN, #30 TAB Prov:QASIM BEJARANO MD 10/28/24 Dorzolamide HCl-Timolol Maleat (Cosopt 2-0.5 %) 1 Keerthi Keerthi, 1 KEERTHI OP BID for 30 Days, #10 ML 1 Refill Prov:GULSHAN JIMENEZ 10/11/24 Brimonidine Tartrate (Alphagan P) 0.1 % Keerthi, 0.1 % OP TID for 30 Days, #10 ML 1 Refill Prov:GULSHAN IJMENEZ 10/11/24 Acyclovir (Acyclovir) 400 Mg Tab, 800 MG PO TID for 14 Days, #84 TAB Prov:HILDA MURPHY MD 09/05/24 Isosorbide Dinitrate (Isosorbide Dinitrate) 10 Mg Tab, 2 TAB PO TID@0600,1200,1800 for 5 Days, #30 TAB Prov:[facility] 08/23/24 Hydralazine Hcl (Hydralazine Hcl) 25 Mg Tab, 25 MG PO TID for 90 Days, #270 TAB Prov:CL[facility] 08/23/24 Carvedilol (COREG) 12.5 Mg Tab, 12.5 MG PO Q12HR for 30 Days, #60 TAB Prov:CL[facility] 08/23/24 Apixaban Base (ELIQUIS) 2.5 Mg Tab, 2.5 MG PO BID for 30 Days, #60 TAB Prov:CL[facility] 08/23/24 Atorvastatin Calcium (Lipitor) 40 Mg Tab, 40 MG PO DAILY for 40 Days, #40 TAB Prov:CL[facility] 08/23/24 Bumetanide (Bumetanide) 1 Mg Tab, 1 TAB PO DAILY for 30 Days, #30 TAB Prov:CL[facility] 08/23/24 Levetiracetam (Levetiracetam) 1,000 Mg Tab, 1 TAB PO BID for 30 Days, #60 TAB Prov:[facility] 08/23/24 Hydrocodone-Acetaminophen (Hydrocodone Bitartrate/AC 5-325 mg) 1 Tab Tab, 1 TAB PO Q6HP PRN, #20 TAB Prov:MYRIAM CORNELIUS MD 08/06/24 Reported Medications Levetiracetam (Levetiracetam) 750 Mg Tab, 1 TAB PO GERARD for 30 Days, #60 TAKE 1 TABLET BY MOUTH ALONG WITH 1000 MG TWICE DAILY ON DIALYSIS DAYS. 08/16/24 Quetiapine Fumerate (QUETIAPINE FUMARATE) 50 Mg Tab, 1 TAB PO 06/07/24 Insulin Lispro (Insulin Lispro Thai Kwi) 100 Unit/Ml Inj 06/07/24 Olopatadine HCl (Olopatadine Hydrochloride) 0.1 % Melchor, 1 DROP LEFTEYE BID 06/07/24 Current Medications Current Medications Medications (Trade) Dose Ordered Sig/Misty Route PRN Reason Start Time Stop Time Status Last Admin Morphine Sulfate 2 mg [id number] PRN IV FOR CHEST PAIN 11/16/24 20:30 11/17/24 02:04 DC 11/16/24 22:33 Bumetanide (Bumex Tablet) 1 mg DAILY PO 11/17/24 10:00 Apixaban (Eliquis) 2.5 mg BID PO 11/17/24 10:00 Atorvastatin Calcium (Lipitor) 40 mg HS PO 11/17/24 22:00 Carvedilol (Coreg Tablet) 12.5 mg Q12HR PO 11/17/24 10:00 Hydralazine HCl (Apresoline Tablet) 50 mg Q8HR PO 11/17/24 06:00 11/17/24 06:37 Isosorbide Dinitrate (Isordil Tablet) 20 mg TID@06,12,18 PO 11/17/24 06:00 11/17/24 06:38 Levetiracetam (Keppra Tablet) 1,000 mg BID PO 11/17/24 10:00 11/17/24 10:06 Hydralazine HCl (Apresoline Injection) 10 mg Q6HP PRN IV SBP>150 11/17/24 01:45 Diagnostic Test (Pha) (Accu-Chek Comfort Curve T) 1 strip ACHS 11/17/24 07:00 11/17/24 11:39 Insulin Human Regular (InsuLIN R) ACHS SC 11/17/24 07:00 Dextrose 50 ml UD PRN IV Blood Sugar LESS THAN 60 11/17/24 01:45 Ondansetron HCl (Zofran) 4 mg Q4HP PRN IV NAUSEA / VOMITING 11/17/24 01:45 11/17/24 02:01 Acetaminophen (Tylenol Tablet) 650 mg Q6HP PRN PO PAIN SCALE 1-3 OR TEMP>100.4 11/17/24 01:45 11/17/24 07:12 Nitroglycerin (Ntrostat Sublingual) 0.4 mg Q5MINP PRN SL FOR CHEST PAIN 11/17/24 01:45 Morphine Sulfate 2 mg Q30M PRN IV FOR CHEST PAIN 11/17/24 01:45 Patient Own Medication 0.1 % TID OP 11/17/24 14:00 Timolol Maleate (Timoptic 0.5%) 1 drop BID EACHEYE 11/17/24 10:00 11/17/24 10:06 Morphine Sulfate 1 mg Q6HP PRN IV MODERATE PAIN (4-6 PAIN SCALE) 11/17/24 09:45 Review of Systems As per [facility] Vital Signs Vital Signs Date Time Temp Pulse Resp B/P (MAP) Pulse Ox O2 Delivery O2 Flow Rate FiO2 11/17/24 10:16 102 15 149/83 (105) 95 11/17/24 07:38 97.9 97.9 11/16/24 19:50 Room Air* 0 21 Physical Exam Examination General Appearance: Alert, Oriented X3, Cooperative, No acute distress HEENT: EOMI Respiratory: Clear to auscultation, Normal air movement Cardiovascular: Regular rate, Normal S1, Normal S2, chest tenderness on the dialysis tunneled catheter site, no pus, no erythema Abdominal: Normal bowel sounds Extremities: No cyanosis, No edema, Normal pulses, No tenderness/swelling Skin: No rashes, No breakdown Neuro: Normal speech and tone Labs/Diagnostic Data Labs Test 11/17/24 08:49 11/16/24 21:50 11/16/24 17:57 11/16/24 17:00 Range/Units B-Type Natriuretic Peptide 542.17 0-100 pg/mL Urine Color Light-yellow Yellow Urine Clarity Clear Clear Urine pH 7.0 5.0-9.0 Urine Specific [place] 1.013 1.001-1.035 Urine Protein 3+ H Negative Urine Ketones Negative Negative Urine Blood 1+ H Negative /uL Urine Nitrite Negative Negative Urine Bilirubin Negative Negative Urine Urobilinogen Normal Negative mg/dL Urine Leukocyte Esterase Negative Negative /uL Urine RBC 2 0 - 3 /hpf Urine Microscopic WBC 1 0-3 /HPF Urine Squamous Epithelial Cells None seen <5 /hpf Urine Bacteria None seen None Seen /hpf Urine Hyaline Casts Few 0 - 2 /lpf Urine Glucose 2+ H Normal mg/dL Troponin I High Sensitivity 23 </=54 ng/L White Blood Count 7.4 4.4-10.8 10^3/uL Red Blood Count 3.43 L 4.5-5.90 10^6/uL Hemoglobin 11.0 L 13.5-17.5 g/dL Hematocrit 31.7 L 41.0-53.0 % Mean Corpuscular Volume 92.3 80.0-100.0 fL Mean Corpuscular Hemoglobin 32.1 H 28.0-32.0 pg Mean Corpuscular Hemoglobin Concent 34.8 32.0-36.0 g/dL Red Cell Distribution Width 16.1 H 11.8-14.3 % Platelet Count 234 140-450 10^3/uL Mean Platelet Volume 7.4 6.9-10.8 fL Neutrophils (%) (Auto) 67.8 37.0-80.0 % Lymphocytes (%) (Auto) 21.2 10.0-50.0 % Monocytes (%) (Auto) 8.1 0.0-12.0 % Eosinophils (%) (Auto) 2.2 0.0-7.0 % Basophils (%) (Auto) 0.7 0.0-2.0 % Neutrophils # (Auto) 5.0 1.6-8.6 10 ^3/uL Lymphocytes # (Auto) 1.6 0.4-5.4 10 ^3/uL Monocytes # (Auto) 0.6 0-1.3 10 ^3/uL Eosinophils # (Auto) 0.2 0-0.8 10 ^3/uL Basophils # (Auto) 0.1 0-0.2 10 ^3/uL Nucleated Red Blood Cells 0.1 % Sodium Level 143 136-145 mmol/L Potassium Level 4.8 3.5-5.1 mmol/L Chloride Level 110 H 98-107 mmol/L Carbon Dioxide Level 20 20-31 mmol/L Anion Gap 13 5-15 Blood Urea Nitrogen 48 H 9-23 mg/dL Creatinine 5.95 H 0.700-1.30 mg/dL Glomerular Filtration Rate Calc 11 >90 mL/min BUN/Creatinine Ratio 8.1 L 10.0-20.0 Serum Glucose 138 H 74-106 mg/dL Calcium Level 8.6 L 8.7-10.4 mg/dL Total Bilirubin 0.3 0.2-1.0 mg/dL Aspartate Amino Transferase (AST) 21 13-40 U/L Alanine Aminotransferase (ALT) 21 7-40 U/L Alkaline Phosphatase 94 46-116 U/L Total Protein 6.0 5.7-8.2 g/dL Albumin 4.0 3.2-4.8 g/dL Assessment Assessment/plan # end-stage renal disease on dialysis, Thursday, missed dialysis on Thursday -patient mentioned that he makes it on 1 L of urine Labs 11/16/2024 BUN 48 Creatinine 5.95 GFR 11 # hypertensive crisis # hyperlipidemia # diabetes mellitus two for last 25 years # heart failure with reduced ejection fraction # schizophrenia Plan/Recommendation Plan Strict input output Monitor renal function and electrolytes Renal diet Continue home antihypertensive medication including carvedilol and Bumex We will add nifedipine 90 mg and losartan 50 mg daily We will order blood culture considering pain at the dialysis catheter site We will resume hemodialysis Case Discussion with Dr Fernandes Addendum Patient seen and examined, plan discussed with resident. Agree with above, we will follow closely Plan discussed with: Patient, Other CARLOS MERCEDES RESIDENT Nov 17, 2024 12:17 SHAYY FERNANDES MD Nov 17, 2024 16:16
[2024-11-17] MEDS: LOSARTAN POTASSIUM 50 MG TAB PO ONE (12:36)
[2024-11-17] MEDS: BRIMONIDINE TARTRATE 0.1% OP SCH (14:00)
[2024-11-17 14:35] VITALS: BP 144/89; PULSE 93; RESP 18; TEMP 97.9; O2SAT 97
[2024-11-17 16:13] VITALS: BP 144/89; PULSE 93; RESP 18; TEMP 98.1; O2SAT 97
[2024-11-17] MEDS: MORPHINE SULFATE INJ 2 MG/ml SYRG IV PRN (17:45)
--- NOTE | 2024-11-17 19:31 | DVHPNRES ---
Progress Note Date Seen: Nov 17, 2024 Resident Creating Document: BONITA LOPEZ RESIDENT Medical Necessity Reason Pt with a Central, PICC or Fol: No Subjective Review of Systems This is a 63-year-old male past medical history of hypertension, hyperlipidemia, diabetes mellitus type 2 for the last 25 years, ESRD on dialysis scheduled on Thursday and Thursday since March 2024, CHF with reduced ejection fraction, schizophrenia who presented to the ER for evaluation of high blood pressure. Patient reports elevated blood pressure more than 200 for the past couple of days. He was supposed to be dialyzed yesterday but could not make it to the dialysis center due to elevated blood pressure. He states having mild left-sided chest pain. No shortness a breath. No headache or blurred vision. 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 Nephrology was consulted and plan to continue with dialysis was made by their team. The patient also complained of right upper quadrant tenderness on palpation fall which number ultrasound was done. Past Medical History:End-stage renal disease, AFib, CHF with reduced ejection fraction, diabetes mellitus, schizophrenia, seizures, hypertension, hyperlipidemia Past Surgical History: Catheter on the right side of the chest Medication history :Acyclovir, Eliquis, statins, Bumex, Coreg, hydralazine, [place], insulin, isosorbide, Keppra, quetiapine Social history :Smoked two cigarettes every day for last 10 years, denied alcohol, marijuana, any other drug intake Allergies: Coded Allergies: Erythromycin (Verified Allergy, Unknown, 04/17/24) Penicillins (Verified Allergy, Unknown, 04/17/24 Gen: 53-year-old male in mild distress Skin: Warm, dry, normal color and texture, no rash. HEENT: Normocephalic atraumatic, mucous membranes moist and pink. Neck: Cervical and supraclavicular nodes normal without enlargement, trachea is midline, thyroid gland is normal without masses. Pulmonary: Clear to auscultation and percussion bilaterally. Cardiac: Regular rate and rhythm. No murmur Abdomen: Soft, nontender, nondistended, bowel sounds present all 4 quadrants, no guarding, no rigidity, no organomegaly. Extremities: No cyanosis, clubbing, no edema Neuro: Cranial nerves II through XII grossly intact, normal affect and speech, no focal motor deficits. Objective vital signs Vital Sign Date Time Temp Pulse Resp B/P (MAP) Pulse Ox O2 Delivery O2 Flow Rate FiO2 11/17/24 17:45 93 18 162/65 11/17/24 16:15 Room Air* 0 21 11/17/24 16:13 98.1 97 98.1 medications Current Medications Medications Dose Ordered Sig/Misty Route Start Time Stop Time Status Last Admin Dose Admin Bumetanide 1 mg DAILY PO 11/17/24 10:00 Apixaban 2.5 mg BID PO 11/17/24 10:00 Atorvastatin Calcium 40 mg HS PO 11/17/24 22:00 Carvedilol 12.5 mg Q12HR PO 11/17/24 10:00 Hydralazine HCl 50 mg Q8HR PO 11/17/24 06:00 11/17/24 15:30 50 MG Isosorbide Dinitrate 20 mg TID@06,12,18 PO 11/17/24 06:00 11/17/24 17:44 20 MG Levetiracetam 1,000 mg BID PO 11/17/24 10:00 11/17/24 10:06 1,000 MG Hydralazine HCl 10 mg Q6HP PRN IV 11/17/24 01:45 Diagnostic Test (Pha) 1 strip ACHS 11/17/24 07:00 11/17/24 11:39 1 STRIP Insulin Human Regular ACHS SC 11/17/24 07:00 Dextrose 50 ml UD PRN IV 11/17/24 01:45 Ondansetron HCl 4 mg Q4HP PRN IV 11/17/24 01:45 11/17/24 02:01 4 MG Acetaminophen 650 mg Q6HP PRN PO 11/17/24 01:45 11/17/24 07:12 650 MG Nitroglycerin 0.4 mg Q5MINP PRN SL 11/17/24 01:45 Morphine Sulfate 2 mg Q30M PRN IV 11/17/24 01:45 Patient Own Medication 0.1 % TID OP 11/17/24 14:00 Timolol Maleate 1 drop BID EACHEYE 11/17/24 10:00 11/17/24 10:06 1 DROP Morphine Sulfate 1 mg Q6HP PRN IV 11/17/24 09:45 11/17/24 17:45 1 MG Nifedipine 90 mg DAILY PO 11/18/24 10:00 Losartan Potassium 50 mg DAILY PO 11/18/24 10:00 Examination General Appearance: Cooperative. Well developed. Well nourished. NAD Head Exam: Normal inspection Neck Exam: Normal inspection. Non-tender. Normal alignment Pulmonary/Respiratory: Chest non-tender. Clear bilateral breath sounds, no crackles, no wheezing. Cardiovascular/Chest: Regular rate and rhythm. No murmurs. No JVD. Peripheral Pulses: 2+ Radial (R). 2+ Radial (L). 2+ Pedal (R). 2+ Pedal (L) Abdominal Exam: Right upper quadrant tenderness on palpation, Normal bowel sounds. Soft. normal abdomen, no visible veins, Nontender. No hepatospenomegaly. No masses Ankle Exam: Negative ankle edema Lower extremities: Negative lower extremity edema Neuro/Mental Status: A&O x4. Coherent. Thoughts/Psych: Normal thought pattern. Appropriate mood and affect. Good judgement and insight Skin Exam: Normal inspection. Normal color. Warm. Dry laboratory and microbiology Laboratory Tests 11/16/24 17:00 Test 11/16/24 17:00 Range/Units Serum Glucose 138 H 74-106 mg/dL Labs and/or images reviewed: Labs reviewed by me, Image(s) reviewed by me Problem List/Assessment/Plan Problem List/Assessment/Plan Hypertensive urgency versus emergency Medication nonadherence - monitor blood pressure - resume home medications Coreg, hydrochlorothiazide, isosorbide, bumetanide - EKG showed no acute changes CHF, likely diastolic- not in exacerbation, stable - bumetanide - elevated BNP Missed hemodialysis ESRD on hemodialysis - nephro consultation done - monitor labs - strict I&O - fluid restriction - avoid nephrotoxic medication History of glaucoma and diabetic retinopathy -resume home medication History of schizophrenia Prostatomegaly PUD prophylaxis: Not indicated DVT prophylaxis: Not indicated Goals of care: Full code, discussed for >16 minutes Plan discussed with patient Plan discussed with Dr Means Plan discussed with: Patient My Orders My Orders Orders - BONITA LOPEZ RESIDENT Procedure Category Date Status Time Strict I & O YOLY 11/17/24 In Process 08:28 Maintain Fluid YOLY 11/17/24 In Process Restrictions 08:28 Date of Service: Nov 17, 2024 Billing Provider: ELDER BABCOCK MD Common Visit Codes: [id number] INP/OBS CARE(HIGH) CRISTIAN LOPEZYOCASTATIM BOYD RESIDENT Nov 17, 2024 19:31 ELDER BABCOCK MD Nov 20, 2024 22:20
[2024-11-17 20:00] VITALS: PULSE 102; PULSE 104; RESP 18; O2SAT 96
[2024-11-17 21:00] VITALS: BP 142/76; PULSE 102; RESP 18; O2SAT 96
[2024-11-17] MEDS: ATORVASTATIN 20 MG TAB PO SCH (22:00)
[2024-11-18] VITALS (8 sets, daily range): BP systolic 100–140; BP diastolic 61–85; PULSE 76–86; RESP 17–20; TEMP 97.5–98.3; O2SAT 93–98
[2024-11-18 06:25] LABS: Anion Gap 11 (5-15); Carbon Dioxide 27 mmol/L (20-31); Chloride 103 mmol/L (98-107); Potassium 3.7 mmol/L (3.5-5.1); Sodium 141 mmol/L (136-145)
[2024-11-18 06:29] LABS: Calcium 8.5 mg/dL (8.7-10.4)
[2024-11-18 06:32] LABS: BUN/Creatinine Ratio 5.5 (10.0-20.0); Glucose 98 mg/dL (74-106)
[2024-11-18 06:36] LABS: Blood Urea Nitrogen 31 mg/dL (9-23)
[2024-11-18 07:20] LABS: Hematocrit 28.2 % (41.0-53.0); Hemoglobin 9.9 g/dL (13.5-17.5); Mean Corpuscular Hemoglobin 32.4 pg (28.0-32.0); Mean Corpuscular Volume 92.7 fL (80.0-100.0); Nucleated Red Blood Cells % 0.1 %
[2024-11-18] MEDS: MORPHINE SULFATE INJ 2 MG/ml SYRG IV PRN (08:49)
[2024-11-18] MEDS: LOSARTAN POTASSIUM 50 MG TAB PO SCH (09:40)
[2024-11-18 11:09] LABS: Hepatitis B Surface Antigen Negative (Negative); Hepatitis C Antibody Negative (Negative)
[2024-11-18 13:55] LABS: Alanine Aminotransferase 14 U/L (7-40); Alkaline Phosphatase 75 U/L (46-116); Anion Gap 9 (5-15); BUN/Creatinine Ratio 6.7 (10.0-20.0); Carbon Dioxide 27 mmol/L (20-31); Chloride 106 mmol/L (98-107); Potassium 4.1 mmol/L (3.5-5.1); Sodium 142 mmol/L (136-145)
[2024-11-18 14:17] LABS: Albumin 3.1 g/dL (3.2-4.8); Bilirubin, Total 0.2 mg/dL (0.2-1.0); Blood Urea Nitrogen 39 mg/dL (9-23); Calcium 8.0 mg/dL (8.7-10.4); Glucose 177 mg/dL (74-106); Total Protein 5.1 g/dL (5.7-8.2)
--- NOTE | 2024-11-18 16:03 | DVHPNRES ---
Progress Note Date Seen: Nov 18, 2024 Resident Creating Document: BONITA LOPEZ RESIDENT Medical Necessity Reason Pt with a Central, PICC or Fol: No Subjective Review of Systems This is a 63-year-old male past medical history of hypertension, hyperlipidemia, diabetes mellitus type 2 for the last 25 years, ESRD on dialysis scheduled on Thursday and Thursday since March 2024, CHF with reduced ejection fraction, schizophrenia who presented to the ER for evaluation of high blood pressure. Patient reports elevated blood pressure more than 200 for the past couple of days. He was supposed to be dialyzed yesterday but could not make it to the dialysis center due to elevated blood pressure. He states having mild left-sided chest pain. No shortness a breath. No headache or blurred vision. 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 Nephrology was consulted and plan to continue with dialysis was made by their team. The patient also complained of right upper quadrant tenderness on palpation fall which number ultrasound was done. 11/18- The patient was seen at bedside today. His labs were stable and at baseline for BUN and creatinine. His vitals were stable. He underwent dialysis yesterday at the hospital will continue according to his schedule on discharge. The patient will be discharged with home health for medication management as medication noncompliance seems like the cause of his uncontrolled hypertension. Discharge plan for tomorrow was discussed with the patient and he demonstrated understanding of the same. Past Medical History:End-stage renal disease, AFib, CHF with reduced ejection fraction, diabetes mellitus, schizophrenia, seizures, hypertension, hyperlipidemia Past Surgical History: Catheter on the right side of the chest Medication history :Acyclovir, Eliquis, statins, Bumex, Coreg, hydralazine, [place], insulin, isosorbide, Keppra, quetiapine Social history :Smoked two cigarettes every day for last 10 years, denied alcohol, marijuana, any other drug intake Allergies: Coded Allergies: Erythromycin (Verified Allergy, Unknown, 04/17/24) Penicillins (Verified Allergy, Unknown, 04/17/24 Gen: 53-year-old male in mild distress Skin: Warm, dry, normal color and texture, no rash. HEENT: Normocephalic atraumatic, mucous membranes moist and pink. Neck: Cervical and supraclavicular nodes normal without enlargement, trachea is midline, thyroid gland is normal without masses. Pulmonary: Clear to auscultation and percussion bilaterally. Cardiac: Regular rate and rhythm. No murmur Abdomen: Soft, nontender, nondistended, bowel sounds present all 4 quadrants, no guarding, no rigidity, no organomegaly. Extremities: No cyanosis, clubbing, no edema Neuro: Cranial nerves II through XII grossly intact, normal affect and speech, no focal motor deficits. Objective vital signs Vital Sign Date Time Temp Pulse Resp B/P (MAP) Pulse Ox O2 Delivery O2 Flow Rate FiO2 11/18/24 13:00 97.5 78 19 126/76 (93) 95 97.5 11/18/24 08:00 Room Air* 0 21 Total Intake and Output 11/17/24 11/17/24 11/18/24 15:00 23:00 07:00 Intake Total 240 ml 480 ml Output Total 700 ml Balance 240 ml -220 ml medications Current Medications Medications Dose Ordered Sig/Misty Route Start Time Stop Time Status Last Admin Dose Admin Bumetanide 1 mg DAILY PO 11/17/24 10:00 11/18/24 09:39 1 MG Apixaban 2.5 mg BID PO 11/17/24 10:00 Atorvastatin Calcium 40 mg HS PO 11/17/24 22:00 11/17/24 22:00 40 MG Carvedilol 12.5 mg Q12HR PO 11/17/24 10:00 11/18/24 09:40 12.5 MG Hydralazine HCl 50 mg Q8HR PO 11/17/24 06:00 11/18/24 05:59 50 MG Isosorbide Dinitrate 20 mg TID@06,12,18 PO 11/17/24 06:00 11/18/24 11:56 20 MG Levetiracetam 1,000 mg BID PO 11/17/24 10:00 11/18/24 09:40 1,000 MG Hydralazine HCl 10 mg Q6HP PRN IV 11/17/24 01:45 Diagnostic Test (Pha) 1 strip ACHS 11/17/24 07:00 11/18/24 11:41 1 STRIP Insulin Human Regular ACHS SC 11/17/24 07:00 11/18/24 11:58 2 UNITS Dextrose 50 ml UD PRN IV 11/17/24 01:45 Ondansetron HCl 4 mg Q4HP PRN IV 11/17/24 01:45 11/18/24 13:05 4 MG Acetaminophen 650 mg Q6HP PRN PO 11/17/24 01:45 11/17/24 07:12 650 MG Nitroglycerin 0.4 mg Q5MINP PRN SL 11/17/24 01:45 Morphine Sulfate 2 mg Q30M PRN IV 11/17/24 01:45 11/18/24 08:49 2 MG Patient Own Medication 0.1 % TID OP 11/17/24 14:00 Timolol Maleate 1 drop BID EACHEYE 11/17/24 10:00 11/18/24 11:56 1 DROP Morphine Sulfate 1 mg Q6HP PRN IV 11/17/24 09:45 11/18/24 00:24 1 MG Nifedipine 90 mg DAILY PO 11/18/24 10:00 11/18/24 09:38 90 MG Losartan Potassium 50 mg DAILY PO 11/18/24 10:00 11/18/24 09:40 50 MG Examination General Appearance: Cooperative. Well developed. Well nourished. NAD Head Exam: Normal inspection Neck Exam: Normal inspection. Non-tender. Normal alignment Pulmonary/Respiratory: Chest non-tender. Clear bilateral breath sounds, no crackles, no wheezing. Cardiovascular/Chest: Regular rate and rhythm. No murmurs. No JVD. Peripheral Pulses: 2+ Radial (R). 2+ Radial (L). 2+ Pedal (R). 2+ Pedal (L) Abdominal Exam: Right upper quadrant tenderness on palpation, Normal bowel sounds. Soft. normal abdomen, no visible veins, Nontender. No hepatospenomegaly. No masses Ankle Exam: Negative ankle edema Lower extremities: Negative lower extremity edema Neuro/Mental Status: A&O x4. Coherent. Thoughts/Psych: Normal thought pattern. Appropriate mood and affect. Good judgement and insight Skin Exam: Normal inspection. Normal color. Warm. Dry laboratory and microbiology Laboratory Tests 11/18/24 13:14 11/18/24 05:12 Test 11/18/24 13:14 Range/Units Serum Glucose 177 H 74-106 mg/dL Microbiology Date/Time Source Procedure Growth Status 11/18/24 01:30 Nose MRSA Screen - Final Complete Labs and/or images reviewed: Labs reviewed by me, Image(s) reviewed by me Problem List/Assessment/Plan Problem List/Assessment/Plan Hypertensive urgency versus emergency Medication nonadherence - monitor blood pressure - resume home medications Coreg, hydrochlorothiazide, isosorbide, bumetanide - EKG showed no acute changes CHF, likely diastolic- not in exacerbation, stable - bumetanide - elevated BNP Missed hemodialysis ESRD on hemodialysis - nephro consultation done - monitor labs - strict I&O - fluid restriction - avoid nephrotoxic medication History of glaucoma and diabetic retinopathy -resume home medication History of schizophrenia Prostatomegaly PUD prophylaxis: Not indicated DVT prophylaxis: Not indicated Goals of care: Full code, discussed for >16 minutes Plan discussed with patient Plan discussed with Dr Means Plan discussed with: Patient Date of Service: Nov 18, 2024 Billing Provider: ELDER BABCOCK MD Common Visit Codes: [id number] INP/OBS CARE(HIGH) BONITA LOPEZ RESIDENT Nov 18, 2024 16:03 GULSHAN JIMENEZ RESIDENT Nov 18, 2024 19:47 ELDER BABCOCK MD Nov 20, 2024 22:22
--- NOTE | 2024-11-18 16:17 | DVHPN2 ---
Progress Note Date Seen: Nov 18, 2024 Resident Creating Document: CARLOS MERCEDES RESIDENT Medical Necessity Reason Pt with a Central, PICC or Fol: No Subjective Review of Systems History of Present Illness 53-year-old male with past medical history of hypertension, hyperlipidemia, diabetes mellitus two for last 25 years, end-stage renal disease on dialysis on Thursday since March 2024, heart failure with reduced ejection fraction, schizophrenia presented to the ED as he mentioned that he had high blood pressure at home greater than 200. Patient missed his dialysis because of that. He is also mentioning of chest pain, localized to the site of tunnel catheter on the right side He mentioned that he has vision difficulty likely because of diabetic retinopathy Mentioned no other active complaints including fever, chills, nausea, vomiting, abdominal pain, diarrhea, constipation Past medical history hypertension, hyperlipidemia, diabetes mellitus two for last 25 years, end- stage renal disease on dialysis on Thursday since March 2024, heart failure with reduced ejection fraction, schizophrenia Past surgical history Tunneled catheter placement on the right side Medication history Acyclovir, Eliquis, statins, Bumex, Coreg, hydralazine, [place], insulin, isosorbide, Keppra, quetiapine Social history Smoked two cigarettes every day for last 10 years, denied alcohol, marijuana, any other drug intake Allergic history Erythromycin and penicillins Family history Nonsignificant 11/18/2024 Patient mentioned no active symptoms Mentioned no complaints of chest pain around catheter site Received dialysis yesterday Objective vital signs Vital Sign Date Time Temp Pulse Resp B/P (MAP) Pulse Ox O2 Delivery O2 Flow Rate FiO2 11/18/24 13:00 104/53 11/18/24 13:00 97.5 78 19 95 97.5 11/18/24 08:00 Room Air* 0 21 Total Intake and Output 11/17/24 11/17/24 11/18/24 15:00 23:00 07:00 Intake Total 240 ml 480 ml Output Total 700 ml Balance 240 ml -220 ml medications Current Medications Medications Dose Ordered Sig/Misty Route Start Time Stop Time Status Last Admin Dose Admin Bumetanide 1 mg DAILY PO 11/17/24 10:00 11/18/24 09:39 1 MG Apixaban 2.5 mg BID PO 11/17/24 10:00 Atorvastatin Calcium 40 mg HS PO 11/17/24 22:00 11/17/24 22:00 40 MG Carvedilol 12.5 mg Q12HR PO 11/17/24 10:00 11/18/24 09:40 12.5 MG Hydralazine HCl 50 mg Q8HR PO 11/17/24 06:00 11/18/24 05:59 50 MG Isosorbide Dinitrate 20 mg TID@06,12,18 PO 11/17/24 06:00 11/18/24 11:56 20 MG Levetiracetam 1,000 mg BID PO 11/17/24 10:00 11/18/24 09:40 1,000 MG Hydralazine HCl 10 mg Q6HP PRN IV 11/17/24 01:45 Diagnostic Test (Pha) 1 strip ACHS 11/17/24 07:00 11/18/24 11:41 1 STRIP Insulin Human Regular ACHS SC 11/17/24 07:00 11/18/24 11:58 2 UNITS Dextrose 50 ml UD PRN IV 11/17/24 01:45 Ondansetron HCl 4 mg Q4HP PRN IV 11/17/24 01:45 11/18/24 13:05 4 MG Acetaminophen 650 mg Q6HP PRN PO 11/17/24 01:45 11/17/24 07:12 650 MG Nitroglycerin 0.4 mg Q5MINP PRN SL 11/17/24 01:45 Morphine Sulfate 2 mg Q30M PRN IV 11/17/24 01:45 11/18/24 08:49 2 MG Patient Own Medication 0.1 % TID OP 11/17/24 14:00 Timolol Maleate 1 drop BID EACHEYE 11/17/24 10:00 11/18/24 11:56 1 DROP Morphine Sulfate 1 mg Q6HP PRN IV 11/17/24 09:45 11/18/24 00:24 1 MG Nifedipine 90 mg DAILY PO 11/18/24 10:00 11/18/24 09:38 90 MG Losartan Potassium 50 mg DAILY PO 11/18/24 10:00 11/18/24 09:40 50 MG Examination Examination General Appearance: Alert, Oriented X3, Cooperative, No acute distress HEENT: EOMI Respiratory: Clear to auscultation, Normal air movement Cardiovascular: Regular rate, Normal S1, Normal S2, chest tenderness on the dialysis tunneled catheter site, no pus, no erythema Abdominal: Normal bowel sounds Extremities: No cyanosis, No edema, Normal pulses, No tenderness/swelling Skin: No rashes, No breakdown Neuro: Normal speech and tone laboratory and microbiology Laboratory Tests 11/18/24 13:14 11/18/24 05:12 Test 11/18/24 13:14 Range/Units Serum Glucose 177 H 74-106 mg/dL Microbiology Date/Time Source Procedure Growth Status 11/18/24 01:30 Nose MRSA Screen - Final Complete Labs and/or images reviewed: Labs reviewed by me, Image(s) reviewed by me Problem List/Assessment/Plan Problem List/Assessment/Plan Assessment # end-stage renal disease on dialysis, Thursday, missed dialysis on Thursday -patient mentioned that he makes it on 1 L of urine # hypertensive crisis # hyperlipidemia # diabetes mellitus two for last 25 years # heart failure with reduced ejection fraction # schizophrenia Plan Strict input output Monitor renal function and electrolytes Renal diet Continue home antihypertensive medication including carvedilol and Bumex Continue nifedipine 90 mg and losartan 50 mg daily blood culture ordered considering pain at the dialysis catheter site , awaiting collection Patient received dialysis yesterday We will schedule the patient for dialysis on Thursday vs tomorrow if staffing available Case Discussion with Dr Friedman Addendum Patient seen and examined, plan discussed with resident. Agree with above, we will follow closely Plan discussed with: Patient, Other CARLOS MERCEDES Nov 18, 2024 16:17 SHAYY FRIEDMAN MD Nov 18, 2024 18:55
[2024-11-19 01:00] VITALS: BP 122/79; PULSE 80; RESP 18; TEMP 97.8; O2SAT 94
[2024-11-19 05:00] VITALS: BP 130/86; PULSE 80; RESP 17; TEMP 98; O2SAT 96
[2024-11-19 07:00] LABS: Hematocrit 28.9 % (41.0-53.0); Hemoglobin 10.1 g/dL (13.5-17.5); Mean Corpuscular Hemoglobin 32.3 pg (28.0-32.0); Mean Corpuscular Volume 92.3 fL (80.0-100.0); Nucleated Red Blood Cells % 0.1 %
[2024-11-19 07:02] LABS: Chloride 103 mmol/L (98-107); Potassium 4.0 mmol/L (3.5-5.1); Sodium 141 mmol/L (136-145)
[2024-11-19 07:03] LABS: Anion Gap 11 (5-15); Carbon Dioxide 27 mmol/L (20-31)
[2024-11-19 07:06] LABS: Calcium 8.5 mg/dL (8.7-10.4)
[2024-11-19 07:08] LABS: BUN/Creatinine Ratio 5.7 (10.0-20.0)
[2024-11-19 07:11] LABS: Blood Urea Nitrogen 39 mg/dL (9-23); Glucose 157 mg/dL (74-106)
[2024-11-19 09:00] VITALS: BP 131/82; PULSE 75; RESP 14; TEMP 97.6; O2SAT 98
[2024-11-19 13:00] VITALS: BP 147/91; PULSE 78; RESP 20; TEMP 98.1; O2SAT 96
--- NOTE | 2024-11-19 14:48 | DVHPN2 ---
Progress Note Date Seen: Nov 19, 2024 Medical Necessity Reason Pt with a Central, PICC or Fol: No Subjective Patient reports: No new complaints Review of Systems: Deferred Objective vital signs Vital Sign Date Time Temp Pulse Resp B/P (MAP) Pulse Ox O2 Delivery O2 Flow Rate FiO2 11/19/24 14:22 147/91 11/19/24 13:00 98.1 78 20 96 98.1 11/18/24 20:00 Room Air* 0 21 Total Intake and Output 11/18/24 11/18/24 11/19/24 15:00 23:00 07:00 Intake Total 480 ml 450 ml Output Total 650 ml 100 ml Balance -170 ml 350 ml medications Current Medications Medications Dose Ordered Sig/Misty Route Start Time Stop Time Status Last Admin Dose Admin Bumetanide 1 mg DAILY PO 11/17/24 10:00 11/18/24 09:39 1 MG Apixaban 2.5 mg BID PO 11/17/24 10:00 Atorvastatin Calcium 40 mg HS PO 11/17/24 22:00 11/18/24 22:30 40 MG Carvedilol 12.5 mg Q12HR PO 11/17/24 10:00 11/18/24 22:32 12.5 MG Hydralazine HCl 50 mg Q8HR PO 11/17/24 06:00 11/19/24 14:22 50 MG Isosorbide Dinitrate 20 mg TID@06,12,18 PO 11/17/24 06:00 11/19/24 11:39 20 MG Levetiracetam 1,000 mg BID PO 11/17/24 10:00 11/19/24 10:13 1,000 MG Hydralazine HCl 10 mg Q6HP PRN IV 11/17/24 01:45 Diagnostic Test (Pha) 1 strip ACHS 11/17/24 07:00 11/19/24 11:25 1 STRIP Insulin Human Regular ACHS SC 11/17/24 07:00 11/19/24 11:38 3 UNITS Dextrose 50 ml UD PRN IV 11/17/24 01:45 Ondansetron HCl 4 mg Q4HP PRN IV 11/17/24 01:45 11/19/24 11:18 4 MG Acetaminophen 650 mg Q6HP PRN PO 11/17/24 01:45 11/17/24 07:12 650 MG Nitroglycerin 0.4 mg Q5MINP PRN SL 11/17/24 01:45 Morphine Sulfate 2 mg Q30M PRN IV 11/17/24 01:45 11/18/24 18:13 2 MG Patient Own Medication 0.1 % TID OP 11/17/24 14:00 Timolol Maleate 1 drop BID EACHEYE 11/17/24 10:00 11/19/24 10:14 1 DROP Morphine Sulfate 1 mg Q6HP PRN IV 11/17/24 09:45 11/19/24 11:19 1 MG Nifedipine 90 mg DAILY PO 11/18/24 10:00 11/18/24 09:38 90 MG Losartan Potassium 50 mg DAILY PO 11/18/24 10:00 11/18/24 09:40 50 MG laboratory and microbiology Laboratory Tests 11/19/24 05:59 Test 11/19/24 05:59 Range/Units Serum Glucose 157 H 74-106 mg/dL Microbiology Date/Time Source Procedure Growth Status 11/18/24 01:30 Nose MRSA Screen - Final Complete Problem List/Assessment/Plan Problem List/Assessment/Plan Assessment # end-stage renal disease on dialysis, Thursday, missed dialysis -patient mentioned that he makes it on 1 L of urine # hypertensive crisis # hyperlipidemia # diabetes mellitus two for last 25 years # heart failure with reduced ejection fraction # schizophrenia Plan Hemodialysis Thursday versus tomorrow depending on staffing bp control Plan discussed with: Patient SHAYY FERNANDES MD Nov 19, 2024 14:48
--- NOTE | 2024-11-19 15:16 | DVHPNRES ---
Progress Note Date Seen: Nov 19, 2024 Resident Creating Document: BONITA LOPEZ RESIDENT Medical Necessity Reason Pt with a Central, PICC or Fol: No Subjective Review of Systems This is a 63-year-old male past medical history of hypertension, hyperlipidemia, diabetes mellitus type 2 for the last 25 years, ESRD on dialysis scheduled on Thursday and Thursday since March 2024, CHF with reduced ejection fraction, schizophrenia who presented to the ER for evaluation of high blood pressure. Patient reports elevated blood pressure more than 200 for the past couple of days. He was supposed to be dialyzed yesterday but could not make it to the dialysis center due to elevated blood pressure. He states having mild left-sided chest pain. No shortness a breath. No headache or blurred vision. 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 Nephrology was consulted and plan to continue with dialysis was made by their team. The patient also complained of right upper quadrant tenderness on palpation fall which number ultrasound was done. 11/18- The patient was seen at bedside today. His labs were stable and at baseline for BUN and creatinine. His vitals were stable. He underwent dialysis yesterday at the hospital will continue according to his schedule on discharge. The patient will be discharged with home health for medication management as medication noncompliance seems like the cause of his uncontrolled hypertension. Discharge plan for tomorrow was discussed with the patient and he demonstrated understanding of the same. 11/19- The patient was seen at bedside today. His labs were stable and at baseline for BUN and creatinine with stable vitals. The patient complained of episodes of sweating, nausea and feeling hot. We ordered a blood culture suspecting suspecting some infection. Nephrology saw the patient and recommended continuing with the same treatment plan that is being followed. Discharge discussion was initiated with the patient for a possible discharge tomorrow. Past Medical History:End-stage renal disease, AFib, CHF with reduced ejection fraction, diabetes mellitus, schizophrenia, seizures, hypertension, hyperlipidemia Past Surgical History: Catheter on the right side of the chest Medication history :Acyclovir, Eliquis, statins, Bumex, Coreg, hydralazine, [place], insulin, isosorbide, Keppra, quetiapine Social history :Smoked two cigarettes every day for last 10 years, denied alcohol, marijuana, any other drug intake Allergies: Coded Allergies: Erythromycin (Verified Allergy, Unknown, 04/17/24) Penicillins (Verified Allergy, Unknown, 04/17/24 Gen: 53-year-old male in mild distress Skin: Warm, dry, normal color and texture, no rash. HEENT: Normocephalic atraumatic, mucous membranes moist and pink. Neck: Cervical and supraclavicular nodes normal without enlargement, trachea is midline, thyroid gland is normal without masses. Pulmonary: Clear to auscultation and percussion bilaterally. Cardiac: Regular rate and rhythm. No murmur Abdomen: Soft, nontender, nondistended, bowel sounds present all 4 quadrants, no guarding, no rigidity, no organomegaly. Extremities: No cyanosis, clubbing, no edema Neuro: Cranial nerves II through XII grossly intact, normal affect and speech, no focal motor deficits. Objective vital signs Vital Sign Date Time Temp Pulse Resp B/P (MAP) Pulse Ox O2 Delivery O2 Flow Rate FiO2 11/19/24 14:22 147/91 11/19/24 13:00 98.1 78 20 96 98.1 11/18/24 20:00 Room Air* 0 21 Total Intake and Output 11/18/24 11/18/24 11/19/24 15:00 23:00 07:00 Intake Total 480 ml 450 ml Output Total 650 ml 100 ml Balance -170 ml 350 ml medications Current Medications Medications Dose Ordered Sig/Misty Route Start Time Stop Time Status Last Admin Dose Admin Bumetanide 1 mg DAILY PO 11/17/24 10:00 11/18/24 09:39 1 MG Apixaban 2.5 mg BID PO 11/17/24 10:00 Atorvastatin Calcium 40 mg HS PO 11/17/24 22:00 11/18/24 22:30 40 MG Carvedilol 12.5 mg Q12HR PO 11/17/24 10:00 11/18/24 22:32 12.5 MG Hydralazine HCl 50 mg Q8HR PO 11/17/24 06:00 11/19/24 14:22 50 MG Isosorbide Dinitrate 20 mg TID@06,12,18 PO 11/17/24 06:00 11/19/24 11:39 20 MG Levetiracetam 1,000 mg BID PO 11/17/24 10:00 11/19/24 10:13 1,000 MG Hydralazine HCl 10 mg Q6HP PRN IV 11/17/24 01:45 Diagnostic Test (Pha) 1 strip ACHS 11/17/24 07:00 11/19/24 11:25 1 STRIP Insulin Human Regular ACHS SC 11/17/24 07:00 11/19/24 11:38 3 UNITS Dextrose 50 ml UD PRN IV 11/17/24 01:45 Ondansetron HCl 4 mg Q4HP PRN IV 11/17/24 01:45 11/19/24 11:18 4 MG Acetaminophen 650 mg Q6HP PRN PO 11/17/24 01:45 11/17/24 07:12 650 MG Nitroglycerin 0.4 mg Q5MINP PRN SL 11/17/24 01:45 Morphine Sulfate 2 mg Q30M PRN IV 11/17/24 01:45 11/18/24 18:13 2 MG Patient Own Medication 0.1 % TID OP 11/17/24 14:00 Timolol Maleate 1 drop BID EACHEYE 11/17/24 10:00 11/19/24 10:14 1 DROP Morphine Sulfate 1 mg Q6HP PRN IV 11/17/24 09:45 11/19/24 11:19 1 MG Nifedipine 90 mg DAILY PO 11/18/24 10:00 11/18/24 09:38 90 MG Losartan Potassium 50 mg DAILY PO 11/18/24 10:00 11/18/24 09:40 50 MG Examination General Appearance: Cooperative. Well developed. Well nourished. NAD Head Exam: Normal inspection Neck Exam: Normal inspection. Non-tender. Normal alignment Pulmonary/Respiratory: Chest non-tender. Clear bilateral breath sounds, no crackles, no wheezing. Cardiovascular/Chest: Regular rate and rhythm. No murmurs. No JVD. Peripheral Pulses: 2+ Radial (R). 2+ Radial (L). 2+ Pedal (R). 2+ Pedal (L) Abdominal Exam: Right upper quadrant tenderness on palpation, Normal bowel sounds. Soft. normal abdomen, no visible veins, Nontender. No hepatospenomegaly. No masses Ankle Exam: Negative ankle edema Lower extremities: Negative lower extremity edema Neuro/Mental Status: A&O x4. Coherent. Thoughts/Psych: Normal thought pattern. Appropriate mood and affect. Good judgement and insight Skin Exam: Normal inspection. Normal color. Warm. Dry laboratory and microbiology Laboratory Tests 11/19/24 05:59 Test 11/19/24 05:59 Range/Units Serum Glucose 157 H 74-106 mg/dL Microbiology Date/Time Source Procedure Growth Status 11/18/24 01:30 Nose MRSA Screen - Final Complete Labs and/or images reviewed: Labs reviewed by me, Image(s) reviewed by me Problem List/Assessment/Plan Problem List/Assessment/Plan Hypertensive urgency versus emergency Medication nonadherence - monitor blood pressure - resume home medications Coreg, hydrochlorothiazide, isosorbide, bumetanide - EKG showed no acute changes CHF, likely diastolic- not in exacerbation, stable - bumetanide - elevated BNP Missed hemodialysis ESRD on hemodialysis - nephro consultation done - monitor labs - strict I&O - fluid restriction - avoid nephrotoxic medication History of glaucoma and diabetic retinopathy -resume home medication History of schizophrenia Prostatomegaly PUD prophylaxis: Not indicated DVT prophylaxis: Not indicated Goals of care: Full code, discussed for >16 minutes Plan discussed with patient Plan discussed with Dr Means Plan discussed with: Patient Plan discussed with: Patient My Orders My Orders Orders - BONITA LOPEZ RESIDENT Procedure Category Date Status Time Blood Culture CHANDNI 11/19/24 In Process 11:49 Date of Service: Nov 19, 2024 Billing Provider: ELDER BABCOCK MD Common Visit Codes: [id number] INP/OBS CARE(HIGH) BONITA LOPEZ RESIDENT Nov 19, 2024 15:16 ELDER BABCOCK MD Nov 20, 2024 22:35
[2024-11-19] MEDS ORDERED: SODIUM CHL 0.9% 1000 ML BAG XX ONE (15:30)
[2024-11-19 17:00] VITALS: BP 153/90; PULSE 79; RESP 18; TEMP 97.2; O2SAT 91
[2024-11-19 21:00] VITALS: BP 148/81; PULSE 82; RESP 18; TEMP 97.9; O2SAT 98
[2024-11-20 01:00] VITALS: BP 165/87; PULSE 76; RESP 18; TEMP 97.5; O2SAT 99
[2024-11-20] MEDS: hydrALAZINE HCL 20 MG/ML VL IV PRN (01:40)
[2024-11-20 05:00] VITALS: BP 132/70; PULSE 79; RESP 18; TEMP 98.3; O2SAT 97
[2024-11-20 06:39] LABS: Hematocrit 30.4 % (41.0-53.0); Hemoglobin 10.6 g/dL (13.5-17.5); Mean Corpuscular Hemoglobin 32.4 pg (28.0-32.0); Mean Corpuscular Volume 92.6 fL (80.0-100.0); Nucleated Red Blood Cells % 0.0 %
[2024-11-20 06:49] LABS: Chloride 105 mmol/L (98-107); Potassium 4.3 mmol/L (3.5-5.1); Sodium 142 mmol/L (136-145)
[2024-11-20 06:50] LABS: Anion Gap 11 (5-15); Calcium 8.9 mg/dL (8.7-10.4); Carbon Dioxide 26 mmol/L (20-31)
[2024-11-20 06:55] LABS: BUN/Creatinine Ratio 5.3 (10.0-20.0)
[2024-11-20 06:59] LABS: Blood Urea Nitrogen 32 mg/dL (9-23); Glucose 130 mg/dL (74-106)
--- NOTE | 2024-11-20 08:51 | DVHPN2 ---
Progress Note Date Seen: Nov 20, 2024 Medical Necessity Reason Pt with a Central, PICC or Fol: No Subjective Patient reports: No new complaints Review of Systems: Deferred Objective vital signs Vital Sign Date Time Temp Pulse Resp B/P (MAP) Pulse Ox O2 Delivery O2 Flow Rate FiO2 11/20/24 06:30 132/70 11/20/24 05:00 98.3 79 18 97 98.3 11/19/24 20:00 Room Air* 0 21 Total Intake and Output 11/19/24 11/19/24 11/20/24 15:00 23:00 07:00 Intake Total 560 ml 623 ml Output Total 350 ml 625 ml Balance 210 ml -2 ml medications Current Medications Medications Dose Ordered Sig/Misty Route Start Time Stop Time Status Last Admin Dose Admin Bumetanide 1 mg DAILY PO 11/17/24 10:00 11/18/24 09:39 1 MG Apixaban 2.5 mg BID PO 11/17/24 10:00 11/19/24 21:30 2.5 MG Atorvastatin Calcium 40 mg HS PO 11/17/24 22:00 11/19/24 21:31 40 MG Carvedilol 12.5 mg Q12HR PO 11/17/24 10:00 11/19/24 21:38 12.5 MG Hydralazine HCl 50 mg Q8HR PO 11/17/24 06:00 11/20/24 06:30 50 MG Isosorbide Dinitrate 20 mg TID@06,12,18 PO 11/17/24 06:00 11/20/24 06:29 20 MG Levetiracetam 1,000 mg BID PO 11/17/24 10:00 11/19/24 21:31 1,000 MG Hydralazine HCl 10 mg Q6HP PRN IV 11/17/24 01:45 11/20/24 01:40 10 MG Diagnostic Test (Pha) 1 strip ACHS 11/17/24 07:00 11/20/24 06:30 1 STRIP Insulin Human Regular ACHS SC 11/17/24 07:00 11/19/24 21:49 3 UNITS Dextrose 50 ml UD PRN IV 11/17/24 01:45 Ondansetron HCl 4 mg Q4HP PRN IV 11/17/24 01:45 11/20/24 04:03 4 MG Acetaminophen 650 mg Q6HP PRN PO 11/17/24 01:45 11/17/24 07:12 650 MG Nitroglycerin 0.4 mg Q5MINP PRN SL 11/17/24 01:45 Morphine Sulfate 2 mg Q30M PRN IV 11/17/24 01:45 11/18/24 18:13 2 MG Patient Own Medication 0.1 % TID OP 11/17/24 14:00 Timolol Maleate 1 drop BID EACHEYE 11/17/24 10:00 11/19/24 21:31 1 DROP Morphine Sulfate 1 mg Q6HP PRN IV 11/17/24 09:45 11/20/24 03:56 1 MG Nifedipine 90 mg DAILY PO 11/18/24 10:00 11/18/24 09:38 90 MG Losartan Potassium 50 mg DAILY PO 11/18/24 10:00 11/18/24 09:40 50 MG laboratory and microbiology Laboratory Tests 11/20/24 05:51 Test 11/20/24 05:51 Range/Units Serum Glucose 130 H 74-106 mg/dL Microbiology Date/Time Source Procedure Growth Status 11/18/24 01:30 Nose MRSA Screen - Final Complete Problem List/Assessment/Plan Problem List/Assessment/Plan Assessment # end-stage renal disease on dialysis, Thursday, missed dialysis # hypertensive crisis # hyperlipidemia # diabetes mellitus two for last 25 years # heart failure with reduced ejection fraction # schizophrenia Plan Last hemodialysis was done on Thursday--patient did not finish complete treatment very noncompliant with time Next dialysis Thursday bp control Plan discussed with: Patient My Orders My Orders Orders - SHAYY FERNANDES MD Procedure Category Date Status Time Hemodialysis Orders ORDERS 11/19/24 Transmitted 15:18 Dialysis Nursing [facility] 11/19/24 In Process Message 15:18 Document Fluid Input [facility] 11/19/24 In Process And Outpu 15:18 SHAYY FERNANDES MD Nov 20, 2024 08:51
[2024-11-20 09:00] VITALS: BP 145/79; PULSE 85; RESP 18; TEMP 98.2; O2SAT 96
[2024-11-20 13:00] VITALS: BP 120/67; PULSE 71; RESP 16; TEMP 98; O2SAT 100
[2024-11-20] MEDS ORDERED: DORZ1SOL3 OP (13:57)
[2024-11-20] MEDS ORDERED: NIFE1TAB31 PO (13:57)
[2024-11-20] MEDS ORDERED: BRIM0.1S3 OP (13:57)
[2024-11-20] MEDS ORDERED: LOSA-534 PO (13:57)
--- NOTE | 2024-11-20 14:07 | DVHDSRES ---
Discharge Summary Date of Admission Resident Creating Document: GULSHAN JIMENEZ RESIDENT Nov 17, 2024 at 01:39 Date of Discharge: Nov 20, 2024 Admitting Diagnosis Hypertensive urgency/emergency Labs/Diagnostic Data: Laboratory Results Test 11/20/24 11:11 11/20/24 05:51 11/18/24 13:14 11/17/24 08:49 POC Glucose 201 mg/dl (70-106) White Blood Count 6.2 10^3/uL (4.4-10.8) Red Blood Count 3.28 10^6/uL (4.5-5.90) Hemoglobin 10.6 g/dL (13.5-17.5) Hematocrit 30.4 % (41.0-53.0) Mean Corpuscular Volume 92.6 fL (80.0-100.0) Mean Corpuscular Hemoglobin 32.4 pg (28.0-32.0) Mean Corpuscular Hemoglobin Concent 35.0 g/dL (32.0-36.0) Red Cell Distribution Width 15.1 % (11.8-14.3) Platelet Count 216 10^3/uL (140-450) Mean Platelet Volume 7.8 fL (6.9-10.8) Neutrophils (%) (Auto) 64.1 % (37.0-80.0) Lymphocytes (%) (Auto) 22.4 % (10.0-50.0) Monocytes (%) (Auto) 10.2 % (0.0-12.0) Eosinophils (%) (Auto) 2.7 % (0.0-7.0) Basophils (%) (Auto) 0.6 % (0.0-2.0) Neutrophils # (Auto) 4.0 10 ^3/uL (1.6-8.6) Lymphocytes # (Auto) 1.4 10 ^3/uL (0.4-5.4) Monocytes # (Auto) 0.6 10 ^3/uL (0-1.3) Eosinophils # (Auto) 0.2 10 ^3/uL (0-0.8) Basophils # (Auto) 0 10 ^3/uL (0-0.2) Nucleated Red Blood Cells 0.0 % Sodium Level 142 mmol/L (136-145) Potassium Level 4.3 mmol/L (3.5-5.1) Chloride Level 105 mmol/L (98-107) Carbon Dioxide Level 26 mmol/L (20-31) Anion Gap 11 (5-15) Blood Urea Nitrogen 32 mg/dL (9-23) Creatinine 6.08 mg/dL (0.700-1.30) Glomerular Filtration Rate Calc 10 mL/min (>90) BUN/Creatinine Ratio 5.3 (10.0-20.0) Serum Glucose 130 mg/dL (74-106) Calcium Level 8.9 mg/dL (8.7-10.4) Total Bilirubin 0.2 mg/dL (0.2-1.0) Aspartate Amino Transferase (AST) 13 U/L (13-40) Alanine Aminotransferase (ALT) 14 U/L (7-40) Alkaline Phosphatase 75 U/L (46-116) Total Protein 5.1 g/dL (5.7-8.2) Albumin 3.1 g/dL (3.2-4.8) B-Type Natriuretic Peptide 542.17 pg/mL (0-100) Hepatitis A IgM Antibody Negative Hepatitis B Surface Antigen Negative (Negative) Hepatitis B Core IgM Antibody Negative (Negative) Hepatitis C Antibody Negative (Negative) Test 11/16/24 21:50 11/16/24 17:57 Urine Color Light-yellow (Yellow) Urine Clarity Clear (Clear) Urine pH 7.0 (5.0-9.0) Urine Specific Percy 1.013 (1.001-1.035) Urine Protein 3+ (Negative) Urine Ketones Negative (Negative) Urine Blood 1+ /uL (Negative) Urine Nitrite Negative (Negative) Urine Bilirubin Negative (Negative) Urine Urobilinogen Normal mg/dL (Negative) Urine Leukocyte Esterase Negative /uL (Negative) Urine RBC 2 /hpf (0 - 3) Urine Microscopic WBC 1 /HPF (0-3) Urine Squamous Epithelial Cells None seen /hpf (<5) Urine Bacteria None seen /hpf (None Seen) Urine Hyaline Casts Few /lpf (0 - 2) Urine Glucose 2+ mg/dL (Normal) Troponin I High Sensitivity 23 ng/L (</=54) Other Laboratory Tests 11/20/24 05:51 Brief Hx & Hospital Course: This is a 63-year-old male with a complex medical history including hypertension, hyperlipidemia, type 2 diabetes mellitus for 25 years, end-stage renal disease (ESRD) on hemodialysis (Thursday, Thursday, Thursday schedule since March 2024), congestive heart failure preserved ejection fraction, schizophrenia, and legal blindness due to diabetic retinopathy versus glaucoma. He presented to the emergency department with hypertensive urgency, reporting blood pressure readings over 200 mmHg for several days and mild left-sided chest pain. He missed his scheduled dialysis due to elevated blood pressure. On admission, nephrology was consulted and dialysis was resumed in-hospital. The patients labs, including BUN and creatinine, remained stable and at baseline. During hospitalization, he experienced episodes of sweating, nausea, and feeling hot, raising concern for possible infection; blood cultures were ordered which showed preliminary negative Patient also developed diastolic CHF exacerbation for which we managed accordingly with the GDM T and Bumex . EKG showed no acute changes. Medication nonadherence was identified as a likely contributor to his hypertensive crisis. His antihypertensive regimen was optimized with the addition of nifedipine 90 mg and losartan 50 mg daily, alongside resumption of home medications including Coreg, hydrochlorothiazide, isosorbide, and bumetanide. The patient was evaluated daily and remained hemodynamically stable. He underwent dialysis in the hospital and will continue outpatient dialysis per schedule. He was educated on the importance of medication and dialysis compliance. Discharge planning included coordination with home health services for medication management due to his history of nonadherence and visual impairment. He demonstrated understanding of the discharge plan and was deemed medically stable for discharge. Pt is lying on bed General Appearance: Alert, Oriented X3, Cooperative, Not in acute distress HEENT: Atraumatic, Mucous membranes moist/pink, blind in both eyes Respiratory: Clear to auscultation, Normal air movement, No added sounds Cardiovascular: Regular rate, Normal S1, Normal S2, No murmurs Abdominal: Active bowel sounds, Soft, no distention, no tenderness Extremities: No edema, Normal pulses, No tenderness/swelling Skin: No Significant rash, except past surgical scars Neuro: Normal speech, sensorimotor deficits none Psych/Mental Status: Mental status NL, Mood NL Nurse was there as unit clerk during examination Discharge Plan High Blood Pressure and CHF: Added Nifedipine 90 mg and losartan 50 mg daily along with current home meds Coreg, hydrochlorothiazide, isosorbide, bumetanide Eye Problems : Follow up with eye doctor & Use eye drops or medications as prescribed Home Health: Help with taking medications & Support for vision problems Follow-Up Visits: Kidney doctor (Nephrology) for continuation of dialysis for MWF Primary care doctor in 1 week Discharge clinic in 1 week Condition at Discharge: Stable Final Diagnosis/Problems List Hypertensive urgency vs emergency Medication nonadherence Acute on chronic diastolic CHF Missed hemodialysis ESRD on hemodialysis History of glaucoma and diabetic retinopathy History of schizophrenia ?BPH Discharge Disposition: Home with Health Services Discharge Instruct/Medications Diet: Consistent carbohydrate, Cardiac 2g Na,low cholest, Renal Activity: No Restrictions, As Tolerated Follow Up/Referral: Nephrology for hemodialysis PCP for medication management Discharge Clinic Medications: Continue home meds along with nifedipine 90 mg and losartan 50 mg daily 1 time Scheduled Apixaban Base (Eliquis), 2.5 MG PO BID Atorvastatin Calcium (Lipitor), 40 MG PO DAILY Brimonidine Tartrate (Alphagan P), 0.1 % OP TID Bumetanide (Bumetanide), 1 TAB PO DAILY Carvedilol (Coreg), 12.5 MG PO Q12HR Dorzolamide HCl-Timolol Maleat (Cosopt 2-0.5 %), 1 KEERTHI OP BID Hydralazine Hcl (Hydralazine Hcl), 25 MG PO TID Levetiracetam (Levetiracetam), 1 TAB PO BID Losartan Potassium (Losartan Potassium), 50 MG PO DAILY Nifedipine (Nifedipine Er), 90 MG PO DAILY Olopatadine HCl (Olopatadine Hydrochloride), 1 DROP LEFTEYE BID, (Reported) Scheduled PRN Hydrocodone-Acetaminophen (Hydrocodone Bitartrate/AC 5-325 mg), 1-2 TAB PO Q6HP PRN Miscellaneous Medications Insulin Lispro (Insulin Lispro Thai Kwi), (Reported) Quetiapine Fumerate (Quetiapine Fumarate), 1 TAB PO, (Reported) Discharge Statement: "Patient was advised to return to the ER or call 911 if any headaches, dizziness, shortness of breath, chest pain, abdominal pain, bleeding, fevers, or worsening of medical condition. Patient was counseled about treatment plan, medications, possible side effects, patientverbalized understanding. All questions were answered to the best of my ability. This discharge took greater then 30 minutes in planning, reviewing documentation, counseling the patient, and discussing with other team members." ASSESSMENT ASSESSMENT Assessment Hypertensive urgency vs emergency Medication nonadherence Acute on chronic diastolic CHF Missed hemodialysis ESRD on hemodialysis History of glaucoma and diabetic retinopathy History of schizophrenia ?BPH Date of Service: Nov 20, 2024 Billing Provider: ELDER BABCOCK MD Common Visit Codes: 77783-UIQ/OBS DISCH DAY >30min [facility] [place] Nov 20, 2024 14:07 ELDER BABCOCK MD Nov 20, 2024 23:03
[2024-11-20 14:33] VITALS: BP 120/67; PULSE 71; RESP 16; TEMP 98; O2SAT 100
== END 2024-11-20 16:35 | disposition home health service (06) | DRG 194 ==
LOC: ER 16:49 → OVERFLOW 11-17 01:39 → TELE-CENTR 11-17 14:15
PROVIDERS: ADMIT Student in an Organized Health Care Education/Training Program; ATTEND Student in an Organized Health Care Education/Training Program
DX: I13.2 Hypertensive heart and chronic kidney disease with heart failure and with stage 5 chronic kidney disease, or end stage renal disease (principal); N18.6 End stage renal disease; E11.22 Type 2 diabetes mellitus with diabetic chronic kidney disease; I16.1 Hypertensive emergency; I50.33 Acute on chronic diastolic (congestive) heart failure; F20.9 Schizophrenia, unspecified; E78.5 Hyperlipidemia, unspecified; N40.0 Benign prostatic hyperplasia without lower urinary tract symptoms; I25.10 Atherosclerotic heart disease of native coronary artery without angina pectoris; I48.91 Unspecified atrial fibrillation; Z79.01 Long term (current) use of anticoagulants; Z79.4 Long term (current) use of insulin; Z86.73 Personal history of transient ischemic attack (TIA), and cerebral infarction without residual deficits; Z88.0 Allergy status to penicillin; Z88.1 Allergy status to other antibiotic agents; Z99.2 Dependence on renal dialysis; Z79.899 Other long term (current) drug therapy
CPT/HCPCS: 36415; 71045; 80048; 80053; 80074; 81001; 82962; 83880; 84484; 85025; 87040; 87081; 90935; 93005; 96374; 96375; 99291; 99292; G0378; J1642; J1815; J2405

== ENCOUNTER 2024-11-25 18:51 | Emergency (ER) | payer MEDICAID ==
[~2024-11-25] VITALS: Ht 154.9 cm; Wt 90.1 kg
[2024-11-25 18:51] VITALS: BP 146/84; PULSE 98; RESP 16; TEMP 98; O2SAT 96
[~2024-11-25 18:51] MED LIST changes: -ACYC1TAB2 PO; -ISOS10TA2 PO; -LEVE750T3 PO; +LOSA-534 PO; +NIFE1TAB31 PO
--- NOTE | 2024-11-25 19:15 | ED.PDOC ---
HPI (NEURO) HPI Comments 53-year-old male who came to ER for seizures. Patient does have history of hypertension, diabetes, seizures, end-stage renal disease on dialysis every Thursday. Patient is long term through his dialysis session, when he had a seizure episode, lasting 1-2 minutes, tonic-clonic. Patient's states last seizure episode was 2 weeks ago. Has been compliant with his Keppra, 1 g b.i.d. Chief Complaint: Seizure Time Seen by MD: 19:14 Primary Care Provider: KELLIE Red Notes: Nurses Notes Information Source: Patient Mode of Arrival: EMS Severity: Moderate Dizziness/Weakness Severity: Unable to do activities Headache Severity: Moderate Timing: Minutes Duration: Since onset Prehospital treatment: None Seizure Quality: Tonic-clonic Headache Quality: Throbbing, Aching Headache Location: Generalized Weakness Location: Generalized Numbness Location: Generalized Seizure Location: Generalized Onset: Other (During dialysis) Circumstances: Spontaneous Symptoms: Weakness Before: Normal During: LOC After: Headache History of: DM, Hypertension, Seizure Disorder Associated Signs and Symptoms: Weakness Past Medical History PAST MEDICAL HISTORY: AFIB, CAD, CHF, CVA, DM, ESRD, High Lipids, HTN, Schizophrenia, Seizures Surgical History: Denies all surgeries Surgical History (Other): Dialysis Thursday Family History Family History: Reviewed,noncontributory to illness Social History Smoker: Non-Smoker Alcohol: Denies ETOH Use Drugs: Denies Drug Use Lives In: Assisted Care Constitutional: reports: weakness; denies: chills, diaphoresis, fatigue, fever, malaise, sweats, others EENTM: denies: blurred vision, double vision, ear bleeding, ear discharge, ear drainage, ear pain, ear ringing, eye pain, eye redness, hearing loss, mouth almaz n, mouth swelling, nasal discharge, nose bleeding, nose congestion, nose pain, photophobia, tearing, throat pain, throat swelling, voice changes, others Respiratory: denies: cough, hemoptysis, orthopnea, SOB at rest, shortness of breath, SOB with excertion, stridor, wheezing, others Cardiovascular: denies: chest pain, dizzy spells, diaphoresis, Dyspnea on exertion, edema, irregular heart beat, left arm pain, lightheadedness, palpitations, PND, syncope, others Gastrointestinal: denies: abdomen distended, abdominal pain, blood streaked bowels, constipated, diarrhea, dysphagia, difficulty swallowing, hematemesis, melena, nausea, poor appetite, poor fluid intake, rectal bleeding, rectal pain, vomiting, others Genitourinary: denies: burning, dysuria, flank pain, frequency, hematuria, incontinence, penile discharge, penile sore, pain, testicle pain, testicle swelling, urgency, others Neurological: reports: seizure; denies: dizziness, fainting, headache, left sided numbness, left sided weakness, numbness, paresthesia, pre-existing deficit, right sided numbness, right sided weakness, speech problems, tingling, tremors, weakness, others Musculoskeletal: denies: back pain, gout, joint pain, joint swelling, muscle pain, muscle stiffness, neck pain, others Integumetry: denies: bruises, change in color, change in hair/nails, dryness, laceration, lesions, lumps, rash, wounds, others Allergic/Immunocompromised: denies: Difficulty Healing, Frequent Infections, Hives, Itching, others Hematologic/Lymphatic: denies: anemia, blood clots, easy bleeding, easy bruising, swollen glands, others Endocrine: denies: excessive hunger, excessive sweating, excessive thirst, excessive urination, flushing, intolerance to cold, intolerance to heat, unexplained weight gain, unexplained weight loss, others Psychiatric: denies: anxiety, bipolar disorder, depression, hopeless, panic disorder, schizophrenia, sleepless, suicidal, others Physical Exam General Appearance: No Apparent Distress, Normal HEENT: Normal ENT Inspection, Pharynx Normal, TMs Normal Neck: Full Range of Motion, Non-Tender, Normal, Normal Inspection Respiratory: Chest Non-Tender, Lungs Clear, No Accessory Muscle Use, No Respiratory Distress, Normal Breath Sounds Cardiovascular: No Edema, No JVD, No Murmur, No Gallop, Normal Peripheral Pulses, Regular Rate/Rhythm Breast Exam: Deferred Gastrointestinal: No Organomegaly, Non Tender, No Pulsatile Mass, Normal Bowel Sounds, Soft Genitalia: Deferred Pelvic: Deferred Rectal: Deferred Extremities: No calf tenderness, Normal capillary refill, Normal inspection, Normal range of motion, Non-tender, No pedal edema Musculoskeletal : Apperance: Normal Neurologic: Alert, 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 Was a procedure done?: No Differential Diagnosis (SZ) Seizure: Psychogenic Seizure, Hypocalcemia, Hypoglycemia, Hyponatremia, Idiopathic, Encephalopathy, Epilepsy-Break Through, Epilepsy-Status X-Ray, Labs, Meds, VS Vital Signs Date Time Temp Pulse Resp B/P (MAP) Pulse Ox O2 Delivery O2 Flow Rate FiO2 11/25/24 18:51 98.0 98 16 146/84 96 98.0 Lab Test 11/25/24 19:29 Range/Units White Blood Count 7.1 4.4-10.8 10^3/uL Red Blood Count 3.30 L 4.5-5.90 10^6/uL Hemoglobin 11.0 L 13.5-17.5 g/dL Hematocrit 30.7 L 41.0-53.0 % Mean Corpuscular Volume 92.8 80.0-100.0 fL Mean Corpuscular Hemoglobin 33.2 H 28.0-32.0 pg Mean Corpuscular Hemoglobin Concent 35.8 32.0-36.0 g/dL Red Cell Distribution Width 15.0 H 11.8-14.3 % Platelet Count 354 # 140-450 10^3/uL Mean Platelet Volume 6.9 6.9-10.8 fL Neutrophils (%) (Auto) 55.4 37.0-80.0 % Lymphocytes (%) (Auto) 30.0 10.0-50.0 % Monocytes (%) (Auto) 10.4 0.0-12.0 % Eosinophils (%) (Auto) 3.4 0.0-7.0 % Basophils (%) (Auto) 0.8 0.0-2.0 % Neutrophils # (Auto) 3.9 1.6-8.6 10 ^3/uL Lymphocytes # (Auto) 2.1 0.4-5.4 10 ^3/uL Monocytes # (Auto) 0.7 0-1.3 10 ^3/uL Eosinophils # (Auto) 0.2 0-0.8 10 ^3/uL Basophils # (Auto) 0.1 0-0.2 10 ^3/uL Nucleated Red Blood Cells 0.2 % Sodium Level 144 136-145 mmol/L Potassium Level 3.9 3.5-5.1 mmol/L Chloride Level 109 H 98-107 mmol/L Carbon Dioxide Level 23 20-31 mmol/L Anion Gap 12 5-15 Blood Urea Nitrogen 22 9-23 mg/dL Creatinine 5.04 H 0.700-1.30 mg/dL Glomerular Filtration Rate Calc 13 >90 mL/min BUN/Creatinine Ratio 4.4 L 10.0-20.0 Serum Glucose 152 H 74-106 mg/dL Calcium Level 8.8 8.7-10.4 mg/dL Magnesium Level 1.7 1.6-2.6 mg/dL Total Bilirubin 0.2 0.2-1.0 mg/dL Aspartate Amino Transferase (AST) 14 13-40 U/L Alanine Aminotransferase (ALT) 14 7-40 U/L Alkaline Phosphatase 89 46-116 U/L Total Protein 6.4 5.7-8.2 g/dL Albumin 3.9 3.2-4.8 g/dL Plasma/Serum Blood Alcohol < 3.0 <10 mg/dL Time of 1ST Reevaluation: 19:12 Reevaluation 1ST: Unchanged Patient Education/Counseling: Diagnosis, Treatment Family Education/Counseling: No Family Present Departure 1 Departure Time of Disposition: 21:00 Impression: Primary Impression: End stage renal disease on dialysis Additional Impressions: Seizure Seizure disorder Disposition: 01 HOME / SELF CARE / HOMELESS Condition: Stable Discharged With: Self Critical Care Note Critical Care Time?: No Stability Stability form required: No Heart Score Heart Score: Heart Score Response (Comments) Value History N/A 0 EKG N/A 0 Age N/A 0 Risk Factors N/A 0 Troponin N/A 0 Total 0 I personally scribed for MYRIAM CORNELIUS MD ([email or web address]) on 11/25/24 at 19:14. Electronically submitted by Nabeel Merino ([email or web address]). MYRIAM CORNELIUS MD Nov 25, 2024 19:14
[2024-11-25 19:41] LABS: Hematocrit 30.7 % (41.0-53.0); Hemoglobin 11.0 g/dL (13.5-17.5); Mean Corpuscular Hemoglobin 33.2 pg (28.0-32.0); Mean Corpuscular Volume 92.8 fL (80.0-100.0); Nucleated Red Blood Cells % 0.2 %
[2024-11-25 20:11] LABS: Alanine Aminotransferase 14 U/L (7-40); Albumin 3.9 g/dL (3.2-4.8); Alkaline Phosphatase 89 U/L (46-116); Anion Gap 12 (5-15); BUN/Creatinine Ratio 4.4 (10.0-20.0); Bilirubin, Total 0.2 mg/dL (0.2-1.0); Blood Urea Nitrogen 22 mg/dL (9-23); Calcium 8.8 mg/dL (8.7-10.4); Carbon Dioxide 23 mmol/L (20-31); Chloride 109 mmol/L (98-107); Glucose 152 mg/dL (74-106); Magnesium 1.7 mg/dL (1.6-2.6); Potassium 3.9 mmol/L (3.5-5.1); Sodium 144 mmol/L (136-145); Total Protein 6.4 g/dL (5.7-8.2)
[2024-11-25] MEDS ORDERED: levETIRAcetam 500 mg/100ml 100 ML IV ONE (21:45)
== END 2024-11-26 00:20 | disposition home or self-care (01) ==
LOC: EDBD 18:51 → ER 18:59
DX: I13.2 Hypertensive heart and chronic kidney disease with heart failure and with stage 5 chronic kidney disease, or end stage renal disease (principal); E11.22 Type 2 diabetes mellitus with diabetic chronic kidney disease; N18.6 End stage renal disease; I50.9 Heart failure, unspecified; G40.909 Epilepsy, unspecified, not intractable, without status epilepticus; I25.10 Atherosclerotic heart disease of native coronary artery without angina pectoris; Z86.73 Personal history of transient ischemic attack (TIA), and cerebral infarction without residual deficits; Z79.899 Other long term (current) drug therapy
CPT/HCPCS: 36415; 80053; 80320; 83735; 85025

== ENCOUNTER 2024-12-21 08:18 | Inpatient (IN) | payer MEDICAID ==
[~2024-12-21] VITALS: Ht 185.4 cm; Wt 205.4 kg
--- NOTE | 2024-12-21 08:58 | ECG ---
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
[2024-12-21] MEDS ORDERED: hydrALAZINE HCL 20 MG/ML VL IV ONE (09:00)
--- NOTE | 2024-12-21 09:04 | ED.PDOC ---
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 He presented to the emergency department with chief complain of elevate high blood pressure reading at home, >200 systolic; associated with diffused tension-like headache. The patient reports 1 day of sub-sternal chest pain, that started while he was at rest, pressure like, 5/10, continues, that irradiates to left and right arms, that did not resolved with rest. Today, the patient reports persistence of the chest pain and dyspnea, this prompted his visit to the ED. The patient reports he is been compliant with his blood pressure medications. The patient denies palpitation, lightheadedness, syncope, fever, or other symptoms. Attestation note: Dr. Leal: I was the supervising attending for this ED encounter. Please see the resident's notes. I was available for questions and consultations. Differential diagnosis: DDX include renal disease, thyroid disease, electrolyte abnormality, increased salt intake, medications non-compliance, undiagnosed HTN, Hypertensive crisis, hypertensive urgency., drug toxicity. MDM: MDM: patient presented with the above HPI.--hypertensive for evaluation----workup was initiated. patient was found with the above mentioned diagnosis. the following medications were ordered: please refer to order lists of meds and tests obtained by myself Dr. Leal. Patient ED course and VS have been stabilized. Patient has been reassessed in the ED and remained in a stable condition. Pertinent incidental findings were discussed with the patient and/or family. Patient/family voices understanding and is agreeable with plan. Patient has been observed in the ED adequate length of time to insure improvement/stability. Escalation of care considered: Consideration of escalation to observation or admission Patient was given multiple blood pressure IV medication boluses for blood pressure control. Patient continued to be hypertensive. Patient will benefit from dialysis as well. Patient was ADMITTED to the medicine team for further evaluation and treatment of their presentation. All the reports of any imaging studies that were ordered by myself were reviewed by myself. Chief Complaint: High Blood Pressure Time Seen by MD: 08:28 Primary Care Provider: KELLIE Reviewed Notes: Nurses Notes, Medications, Allergies Allergies: Coded Allergies: Erythromycin (Verified Allergy, Unknown, 04/17/24) Penicillins (Verified Allergy, Unknown, 04/17/24) Home Meds Active Scripts Hydralazine Hcl (Hydralazine Hcl) 50 Mg Tab, 1 TAB PO TID, #90 TAB Prov:RICKY MARTELL [facility] 12/22/24 Nifedipine (Nifedipine Er) 30 Mg Tab, 90 MG PO DAILY for 30 Days, #90 TAB [facility]/24 Losartan Potassium (Losartan Potassium) 50 Mg Tab, 50 MG PO DAILY for 30 Days, #30 TAB Prov:[facility] 11/20/24 Dorzolamide HCl-Timolol Maleat (Cosopt 2-0.5 %) 1 Keerthi Keerthi, 1 KEERTHI OP BID for 30 Days, #10 ML 1 Refill Prov:[facility] 11/20/24 Brimonidine Tartrate (Alphagan P) 0.1 % Keerthi, 0.1 % OP TID for 30 Days, #10 ML 1 [facility] 11/20/24 Hydrocodone-Acetaminophen (Hydrocodone Bitartrate/AC 5-325 mg) 1 Tab Tab, 1-2 TAB PO Q6HP PRN, #30 TAB Prov:QASIM BEJARANO MD 10/28/24 Carvedilol (COREG) 12.5 Mg Tab, 12.5 MG PO Q12HR for 30 Days, #60 TAB Prov:BERTRAM LARKIN [facility] 08/23/24 Apixaban Base (ELIQUIS) 2.5 Mg Tab, 2.5 MG PO BID for 30 Days, #60 TAB Prov:BERTRAM LARKIN [facility] 08/23/24 Atorvastatin Calcium (Lipitor) 40 Mg Tab, 40 MG PO DAILY for 40 Days, #40 TAB Prov:BERTRAM LARKIN [facility] 08/23/24 Bumetanide (Bumetanide) 1 Mg Tab, 1 TAB PO DAILY for 30 Days, #30 TAB Prov:BERTRAM LARKIN [facility] 08/23/24 Levetiracetam (Levetiracetam) 1,000 Mg Tab, 1 TAB PO BID for 30 Days, #60 TAB Prov:BERTRAM LARKIN RESIDENT 08/23/24 Reported Medications Quetiapine Fumerate (QUETIAPINE FUMARATE) 50 Mg Tab, 1 TAB PO 06/07/24 Insulin Lispro (Insulin Lispro Thai Kwi) 100 Unit/Ml Inj 06/07/24 Olopatadine HCl (Olopatadine Hydrochloride) 0.1 % Melchor, 1 DROP LEFTEYE BID 06/07/24 Discontinued Scripts Hydralazine Hcl (Hydralazine Hcl) 25 Mg Tab, 25 MG PO TID for 90 Days, #270 TAB Prov:BERTRAM LARKIN RESIDENT 08/23/24 Information Source: Patient Mode of Arrival: Wheelchair Severity: Moderate Timing: Days Duration: Since onset Location: Chest (L) Radiation: Arm (R), Arm (L) Quality: Pressure Onset: At Rest Cardiac Risk Factors: Smoker History of: Similar pain in past Modifying Factors: Exertion Associated Signs and Symptoms: SOB Past Medical History PAST MEDICAL HISTORY: AFIB, CAD, CHF, CVA, DM, ESRD, High Lipids, HTN, Schizophrenia, Seizures Surgical History: Denies all surgeries Family History Family History: Reviewed,noncontributory to illness Social History Smoker: Non-Smoker Alcohol: Denies ETOH Use Drugs: Denies Drug Use Lives In: Assisted Care Constitutional: denies: chills, diaphoresis, fatigue, fever, malaise, sweats, weakness, others EENTM: denies: blurred vision, double vision, ear bleeding, ear discharge, ear drainage, ear pain, ear ringing, eye pain, eye redness, hearing loss, mouth pain, mouth swelling, nasal discharge, nose bleeding, nose congestion, nose pain, photophobia, tearing, throat pain, throat swelling, voice changes, others Respiratory: reports: shortness of breath; denies: cough, hemoptysis, orthopnea, SOB at rest, SOB with excertion, stridor, wheezing, others Cardiovascular: reports: chest pain; denies: dizzy spells, diaphoresis, Dyspnea on exertion, edema, irregular heart beat, left arm pain, lightheadedness, palpitations, PND, syncope, others Gastrointestinal: denies: abdomen distended, abdominal pain, blood streaked bowels, constipated, diarrhea, dysphagia, difficulty swallowing, hematemesis, me abi, nausea, poor appetite, poor fluid intake, rectal bleeding, rectal pain, vomiting, others Genitourinary: denies: burning, dysuria, flank pain, frequency, hematuria, incontinence, penile discharge, penile sore, pain, testicle pain, testicle swelling, urgency, others Neurological: denies: dizziness, fainting, headache, left sided numbness, left sided weakness, numbness, paresthesia, pre-existing deficit, right sided numbness, right sided weakness, seizure, speech problems, tingling, tremors, weakness, others Musculoskeletal: denies: back pain, gout, joint pain, joint swelling, muscle pain, muscle stiffness, neck pain, others Integumetry: denies: bruises, change in color, change in hair/nails, dryness, laceration, lesions, lumps, rash, wounds, others Allergic/Immunocompromised: denies: Difficulty Healing, Frequent Infections, Hives, Itching, others Hematologic/Lymphatic: denies: anemia, blood clots, easy bleeding, easy bruising, swollen glands, others Endocrine: denies: excessive hunger, excessive sweating, excessive thirst, excessive urination, flushing, intolerance to cold, intolerance to heat, unexplained weight gain, unexplained weight loss, others Psychiatric: denies: anxiety, bipolar disorder, depression, hopeless, panic disorder, schizophrenia, sleepless, suicidal, others Physical Exam General Appearance: No Apparent Distress, Normal HEENT: Normal ENT Inspection, Pharynx Normal, TMs Normal, Other (Left eye blindness, right eye patient only sees shadows.) Neck: Full Range of Motion, Non-Tender, Normal, Normal Inspection Respiratory: Chest Non-Tender, No Accessory Muscle Use, No Respiratory Distress, Rales (on bilateral bases) Cardiovascular: No Edema, No JVD, No Murmur, No Gallop, Normal Peripheral Pulses, Regular Rate/Rhythm Breast Exam: Deferred Gastrointestinal: No Organomegaly, Non Tender, No Pulsatile Mass, Normal Bowel Sounds, Soft Genitalia: Deferred Pelvic: Deferred Rectal: Deferred Extremities: Pedal edema (bilateral pedal edema up to the distal leg) Neurologic: Alert, peanut grader II-XII nml as Tested, No Motor Deficits, Normal Affect, Normal Mood, No Sensory Deficits Cerebellar Function: Normal Reflexes: Normal Skin: Dry, Normal Color, Warm Lymphatic: No Adenopathy EKG EKG : Pulse Rate (adult): 91 Liguori: Normal Cardiac Rhythm: NSR Block: None Hypertrophy: LVH Comments Abdnormal ST depression on II, III, V4, V5, V6 Was a procedure done? Was a procedure done?: No CP Differential Dx Differential Diagnosis: Heart Failure, PR Differential Diagnosis: Angina X-Ray, Labs, Meds, VS Vital Signs Date Time Temp Pulse Resp B/P (MAP) Pulse Ox O2 Delivery O2 Flow Rate FiO2 12/21/24 14:02 98 22 97 Room Air* 0 21 12/21/24 14:00 99.0 97 15 193/122 (145) 98 99.0 12/21/24 13:20 189/117 12/21/24 13:10 97.9 89 19 189/117 (141) 99 97.9 12/21/24 13:10 89 19 99 Room Air 12/21/24 11:35 88 18 189/105 (133) 98 12/21/24 09:57 91 12/21/24 08:28 91 12/21/24 08:23 95 18 222/124 (156) 97 12/21/24 08:20 97.9 97 20 227/130 96 97.9 Lab Test 12/21/24 11:42 12/21/24 09:25 12/21/24 08:34 Range/Units Troponin I High Sensitivity 12 10 10 </=54 ng/L White Blood Count 5.9 4.4-10.8 10^3/uL Red Blood Count 4.05 L 4.5-5.90 10^6/uL Hemoglobin 12.6 L 13.5-17.5 g/dL Hematocrit 37.4 L 41.0-53.0 % Mean Corpuscular Volume 92.4 80.0-100.0 fL Mean Corpuscular Hemoglobin 31.1 28.0-32.0 pg Mean Corpuscular Hemoglobin Concent 33.6 32.0-36.0 g/dL Red Cell Distribution Width 15.7 H 11.8-14.3 % Platelet Count 304 140-450 10^3/uL Mean Platelet Volume 7.2 6.9-10.8 fL Neutrophils (%) (Auto) 53.2 37.0-80.0 % Lymphocytes (%) (Auto) 31.4 10.0-50.0 % Monocytes (%) (Auto) 11.5 0.0-12.0 % Eosinophils (%) (Auto) 3.2 0.0-7.0 % Basophils (%) (Auto) 0.7 0.0-2.0 % Neutrophils # (Auto) 3.1 1.6-8.6 10 ^3/uL Lymphocytes # (Auto) 1.8 0.4-5.4 10 ^3/uL Monocytes # (Auto) 0.7 0-1.3 10 ^3/uL Eosinophils # (Auto) 0.2 0-0.8 10 ^3/uL Basophils # (Auto) 0 0-0.2 10 ^3/uL Nucleated Red Blood Cells 0.1 % Sodium Level 146 H 136-145 mmol/L Potassium Level 5.1 3.5-5.1 mmol/L Chloride Level 107 98-107 mmol/L Carbon Dioxide Level 24 20-31 mmol/L Anion Gap 15 5-15 Blood Urea Nitrogen 64 H 9-23 mg/dL Creatinine 7.07 H 0.700-1.30 mg/dL Glomerular Filtration Rate Calc 9 >90 mL/min BUN/Creatinine Ratio 9.1 L 10.0-20.0 Serum Glucose 181 H 74-106 mg/dL Hemoglobin A1c 6.1 H <5.7 % A1C Calcium Level 8.2 L 8.7-10.4 mg/dL Total Bilirubin < 0.2 L 0.2-1.0 mg/dL Aspartate Amino Transferase (AST) 17 13-40 U/L Alanine Aminotransferase (ALT) 14 7-40 U/L Alkaline Phosphatase 111 46-116 U/L B-Type Natriuretic Peptide 431.29 0-100 pg/mL Total Protein 6.0 5.7-8.2 g/dL Albumin 3.7 3.2-4.8 g/dL Vitamin B12 Level 453 211-911 pg/mL Vitamin D 25-Hydroxy 15.7 L 30.0-100 ng/mL Folic Acid 13.64 >5.38 ng/mL [address] [address] Ph: [phone] DIAGNOSTIC IMAGING Diagnostic Imaging Report : [id number] Signed PATIENT: ASHELY ZELAYA DACCT: [id number] UNIT: [id number] : 1970 LOC: ER ROOM / BED: / AGE / SEX: 54 / M ADM STATUS: REG ER SERVICE ORDERING PHYSICIAN: TOM THAKKAR RESIDENT PROCEDURE(s): CXR1 - CHEST XRAY 1 VIEW REASON: Chest pain ORDER NUMBER(s): [id number], ACCESSION NUMBER(s): [id number] CHEST RADIOGRAPH Indication: Chest pain Technique: Single frontal view of the chest was obtained Comparison: XY CHEST PORTABLE on DOS: 11/16/24, XY CHEST XRAY 1 VIEW on DOS: 10/28/24, XY CHEST XRAY 1 VIEW on DOS: 10/10/24 FINDINGS: Lines and Tubes: Right internal jugular catheter in place with the tip in the right atrium. Lungs: Diffuse increased interstitial markings may represent fluid overload. Pleura: No effusion. No pneumothorax. Cardiomediastinal contours: Unremarkable Bones: No acute osseous abnormality. IMPRESSION: 1. Internal jugular catheter in place in the tip in the right atrium. 2. Diffuse increased interstitial markings compared to 11/16/2024. Cardiac size stable. Findings may represent fluid overload. HS:Y ATED BY: CAROLYNN MANN Jr., DO DICTATED DATE/TIME: 12/21/24942 SIGNED BY: CAROLYNN MANN Jr., SIGNED DATE/TIME: 12/21/24942 CC: X-Ray, Labs, Meds, VS Comment The patient was re-evaluated BP is still high 222/124mmHg Troponin 10, The patient will be admitted for BP control, further assessment and management. 12:02pm The patient was re-evaluated BP is improving after hydralazine 5mg IV: 189/105mmhg, The patient reports improving on chest pain I spoke with Hospitalist Dr. Maurice, who reported me that the patient had the same EKG changes 1 month ago. Second troponin level is: 10 Time of 1ST Reevaluation: 09:34 Reevaluation 1ST: Unchanged Time of 2ND Reevaluation: 12:02 Reevaluation 2ND: Improved Patient Education/Counseling: Diagnosis, Treatment, Prognosis, Need For Follow Up Family Education/Counseling: No Family Present Comments SEPSIS Sepsis Screen Date sepsis recognized/suspect: Dec 21, 2024 Time Sepsis recognized/suspect: 0821 Recent Procedure: No On Antibiotic Therapy: No Respiratory Rate >20: No Heart Rate >90: Yes Temp<36 C (96.8 F) or >38.3 C: No SBP <90 or MAP <65 mmHG: No New Acute Mental Status Change: No Is the patient on CPAP, BIPAP,: No Physician Orders Electrocardigram (12/21/24 08:24) Electrocardigram (12/21/24 09:24) Electrocardigram (12/21/24 11:24) Chest Xray 1 View (12/21/24 08:52) Vital Signs Date Time Temp Pulse Resp B/P (MAP) Pulse Ox O2 Delivery O2 Flow Rate FiO2 12/21/24 14:02 98 22 97 Room Air* 0 21 12/21/24 14:00 99.0 97 15 193/122 (145) 98 99.0 12/21/24 13:20 189/117 12/21/24 13:10 97.9 89 19 189/117 (141) 99 97.9 12/21/24 13:10 89 19 99 Room Air 12/21/24 11:35 88 18 189/105 (133) 98 12/21/24 09:57 91 12/21/24 08:28 91 12/21/24 08:23 95 18 222/124 (156) 97 12/21/24 08:20 97.9 97 20 227/130 96 97.9 Laboratory Tests Test 12/21/24 08:34 White Blood Count 5.9 10^3/uL (4.4-10.8) Departure 1 Departure Time of Disposition: 09:41 Impression: Primary Impression: Hypertensive crisis Additional Impression: Abnormal EKG Disposition: 09 ADMITTED INPATIENT Admit to: Med Surg Condition: Good e-Prescriptions Hydralazine Hcl (Hydralazine Hcl) 50 Mg Tab 1 TAB PO TID, #90 TAB Prov: RICKY MARTELL RESIDENT 12/22/24 Discharged With: Self Comments Goals of care discussed with the patient >35 min Discussed plan of care with Dr. Leal Code status: Full code PCP: Dr. Turner Plan discussed with: Patient, the patient agrees with the admission plan. Critical Care Note Critical Care Time?: Yes (55 min-critical care time only) Stability Stability form required: No Heart Score Heart Score: Heart Score Response (Comments) Value History Highly Suspicious [address]-Deviation 2 Age 45-64 1 Risk Factors >3 or Hx ASHD 2 Troponin Normal limit 0 Total 7 TOM THAKKAR RESIDENT Dec 21, 2024 09:04 TATY LEAL DO Dec 23, 2024 09:51
--- NOTE | 2024-12-21 09:45 | DVH ---
CHEST RADIOGRAPH Indication: Chest pain Technique: Single frontal view of the chest was obtained Comparison: XY CHEST PORTABLE on DOS: 11/16/24, XY CHEST XRAY 1 VIEW on DOS: 10/28/24, XY CHEST XRAY 1 V IEW on DOS: 10/10/24 FINDINGS: Lines and Tubes: Right internal jugular catheter in place with the tip in the right atrium. Lungs: Diffuse increased interstitial markings may represent fluid overload. Pleura: No effusion. No pneumothorax. Cardiomediastinal contours: Unremarkable Bones: No acute osseous abnormality. IMPRESSION: 1. Internal jugular catheter in place in the tip in the right atrium. 2. Diffuse increased interstitial markings compared to 11/16/2024. Cardiac size stable. Findings may represent fluid overload. HS:Y
[2024-12-21 12:18] LABS: Hematocrit 37.4 % (41.0-53.0); Hemoglobin 12.6 g/dL (13.5-17.5); Mean Corpuscular Hemoglobin 31.1 pg (28.0-32.0); Mean Corpuscular Volume 92.4 fL (80.0-100.0); Nucleated Red Blood Cells % 0.1 %
[2024-12-21 12:32] LABS: Alanine Aminotransferase 14 U/L (7-40); Alkaline Phosphatase 111 U/L (46-116); Anion Gap 15 (5-15); BUN/Creatinine Ratio 9.1 (10.0-20.0); Carbon Dioxide 24 mmol/L (20-31); Total Protein 6.0 g/dL (5.7-8.2)
[2024-12-21 12:33] LABS: Albumin 3.7 g/dL (3.2-4.8); Bilirubin, Total < 0.2 mg/dL (0.2-1.0); Blood Urea Nitrogen 64 mg/dL (9-23); Calcium 8.2 mg/dL (8.7-10.4); Chloride 107 mmol/L (98-107); Glucose 181 mg/dL (74-106); Potassium 5.1 mmol/L (3.5-5.1); Sodium 146 mmol/L (136-145)
[2024-12-21] MEDS: hydrALAZINE HCL 20 MG/ML VL IV ONE ×2 (13:20→15:18)
[2024-12-21 14:02] VITALS: PULSE 98; RESP 22; O2SAT 97
[2024-12-21] MEDS ORDERED: NITROGLYCERIN 0.4 MG SL TAB SL PRN (15:15)
[2024-12-21] MEDS ORDERED: ACETAMINOPHEN 325 MG TAB PO PRN (15:15)
[2024-12-21] MEDS ORDERED: MORPHINE SULFATE 4 MG/ML SYR/VIAL IV PRN (15:30)
--- NOTE | 2024-12-21 15:36 | DVHHP2 ---
RICKY MARTELL RESIDENT 12/21/24 1536: History of Present Illness History of Present Illness Patient is 54 years old male with a past medical history of hypertension, diabetes mellitus type 2, hyperlipidemia, AFib, CVA, seizure disorder, CKD on hemodialysis Thursday/Thursday/Thursday at [facility], HFpEF, schizophrenia, history of asthma, legal blindness left eye, diabetic retinopathy, glaucoma, BPH came with a complaint of chest pain and shortness of breaths along with the elevated blood pressure. As per patient he started having chest pain in in the right side, sudden onset, woke him up from sleep, 12/30, radiating to the both arms and legs, constant. Patient also reported having shortness of breaths associated with chest pain. Patient further reports having elevated blood pressure systolic more than 200. On further inquiry patient also reported having chronic leg pain and leg swelling but could not give me exact duration. Patient denied any fever, palpitation, dysuria, diarrhea, acute dysarthria. Patient reported being noncompliant with the medication, he does not take any medication other than antihypertensive medication. Patient reported his last dialysis was on last Thursday. On arrival patient's blood pressure was 227/130, pulse 97. Initial EKG no acute ST elevation or T-wave changes, sinus rhythm, troponin I with in normal limit, blood workup revealed serum creatinine 7.07, BUN 64, GFR 9, troponin I with a normal limit, sodium 146, hemoglobin 12.6. CXR- Internal jugular catheter in place in the tip in the right atrium. Diffuse increased interstitial markings compared to 11/16/2024. Cardiac size stable. Findings may represent fluid overload. PMH-hypertension, diabetes mellitus type 2, hyperlipidemia, AFib, CVA, seizure disorder, CKD on hemodialysis Thursday/Thursday/Thursday at [facility], HFpEF, schizophrenia, legal blindness left eye, diabetic retinopathy, glaucoma, BPH PSH- denies Allergy- azithromycin, penicillin Personal History/ Social History- denies smoking/alcoholism/drug abuse, lives with sister Review of Systems Review of Systems Review of other system Gastrointestinal- denies any rectal bleeding, nausea or vomiting Musculoskeletal-denies acute joint swelling or tenderness or redness Neurological- denies acute dysarthria, dysphagia, change in vision Psychiatry- denies depression or SI or HI Skin- denies acute rash or purpura Allergies: Coded Allergies: Erythromycin (Verified Allergy, Unknown, 04/17/24) Penicillins (Verified Allergy, Unknown, 04/17/24) Medications Current Medications Medications Dose Ordered Sig/Misty Route Start Time Stop Time Status Last Admin Dose Admin Sodium Chloride 10 ml Q8HR IV 12/21/24 22:00 Acetaminophen 650 mg Q6HP PRN PO 12/21/24 15:15 Nitroglycerin 0.4 mg Q5MINP PRN SL 12/21/24 15:15 Morphine Sulfate 2 mg Q30M PRN IV 12/21/24 15:30 Apixaban 2.5 mg BID PO 12/21/24 22:00 Bumetanide 1 mg DAILY PO 12/22/24 10:00 Carvedilol 12.5 mg Q12HR PO 12/21/24 22:00 Hydralazine HCl 25 mg TID PO 12/21/24 22:00 Acetaminophen/ Hydrocodone Bitart 1 tab Q6HP PRN PO 12/21/24 15:15 Losartan Potassium 50 mg DAILY PO 12/22/24 10:00 UNV Nifedipine 90 mg DAILY PO 12/22/24 10:00 UNV Atorvastatin Calcium 40 mg HS PO 12/21/24 22:00 Patient Own Medication 0.1 % TID OP 12/21/24 22:00 UNV Levetiracetam 1,000 mg BID PO 12/21/24 22:00 Patient Own Medication 1 drop BID LEFTEYE 12/21/24 22:00 UNV Exam Vital Signs Vital Signs Date Time Temp Pulse Resp B/P (MAP) Pulse Ox O2 Delivery O2 Flow Rate FiO2 12/21/24 15:18 195/123 12/21/24 13:10 97.9 89 19 99 97.9 12/21/24 13:10 Room Air Exam General examination- awake, alert, oriented HEENT- PEERLA, no acute nasal discharge Cardiovascular- S1-S2 audible, rate and rhythm regular, no murmur Respiratory- lung crackles+ Gastrointestinal-nontender, bowel sound+. Nondistended Musculoskeletal-no acute joint swelling or tenderness or redness Lower extremity- bilateral leg edema++ Neurological- cranial nerves intact, no acute dysarthria or dysphagia Psychiatry- denies depression or SI or HI Skin- no acute rash or purpura Labs/Xrays Labs Test 12/21/24 11:42 12/21/24 08:34 Range/Units Troponin I High Sensitivity 12 </=54 ng/L White Blood Count 5.9 4.4-10.8 10^3/uL Red Blood Count 4.05 L 4.5-5.90 10^6/uL Hemoglobin 12.6 L 13.5-17.5 g/dL Hematocrit 37.4 L 41.0-53.0 % Mean Corpuscular Volume 92.4 80.0-100.0 fL Mean Corpuscular Hemoglobin 31.1 28.0-32.0 pg Mean Corpuscular Hemoglobin Concent 33.6 32.0-36.0 g/dL Red Cell Distribution Width 15.7 H 11.8-14.3 % Platelet Count 304 140-450 10^3/uL Mean Platelet Volume 7.2 6.9-10.8 fL Neutrophils (%) (Auto) 53.2 37.0-80.0 % Lymphocytes (%) (Auto) 31.4 10.0-50.0 % Monocytes (%) (Auto) 11.5 0.0-12.0 % Eosinophils (%) (Auto) 3.2 0.0-7.0 % Basophils (%) (Auto) 0.7 0.0-2.0 % Neutrophils # (Auto) 3.1 1.6-8.6 10 ^3/uL Lymphocytes # (Auto) 1.8 0.4-5.4 10 ^3/uL Monocytes # (Auto) 0.7 0-1.3 10 ^3/uL Eosinophils # (Auto) 0.2 0-0.8 10 ^3/uL Basophils # (Auto) 0 0-0.2 10 ^3/uL Nucleated Red Blood Cells 0.1 % Sodium Level 146 H 136-145 mmol/L Potassium Level 5.1 3.5-5.1 mmol/L Chloride Level 107 98-107 mmol/L Carbon Dioxide Level 24 20-31 mmol/L Anion Gap 15 5-15 Blood Urea Nitrogen 64 H 9-23 mg/dL Creatinine 7.07 H 0.700-1.30 mg/dL Glomerular Filtration Rate Calc 9 >90 mL/min BUN/Creatinine Ratio 9.1 L 10.0-20.0 Serum Glucose 181 H 74-106 mg/dL Calcium Level 8.2 L 8.7-10.4 mg/dL Total Bilirubin < 0.2 L 0.2-1.0 mg/dL Aspartate Amino Transferase (AST) 17 13-40 U/L Alanine Aminotransferase (ALT) 14 7-40 U/L Alkaline Phosphatase 111 46-116 U/L Total Protein 6.0 5.7-8.2 g/dL Albumin 3.7 3.2-4.8 g/dL SEPSIS Sepsis Screen Date sepsis recognized/suspect: Dec 21, 2024 Time Sepsis recognized/suspect: 820 Recent Procedure: No On Antibiotic Therapy: No Respiratory Rate >20: No Heart Rate >90: Yes Temp<36 C (96.8 F) or >38.3 C: No SBP <90 or MAP <65 mmHG: No New Acute Mental Status Change: No Is the patient on CPAP, BIPAP,: No Physician Orders Electrocardigram (12/21/24 09:24) Electrocardigram (12/21/24 11:24) Chest Xray 1 View (12/21/24 08:52) Admit (12/21/24 15:03) Allergies (12/21/24 15:03) Code Status (12/21/24 15:03) Renal Standard(2gna,3gk,Lopho) (12/21/24 Dinner) Sodium Chloride Lock (Saline Lock Ns) (12/21/24 22:00) Complete Blood Count (12/22/24 04:00) Comprehensive Metabolic Panel (12/22/24 04:00) Cardiac Diet-2gna,Lofat,Lochol (12/21/24 Dinner) Acetaminophen Tablet (Tylenol Tablet) (12/21/24 15:15) Nitroglycerin Sublingual (Ntrostat Subli (12/21/24 15:15) Notify Md Of Changes From Base (12/21/24 15:03) Evp [employer] Of [employer] Experience Strategy For 24 Hours (12/21/24 15:03) Oxygen By Nasal Cannula (12/21/24 15:03) Apixaban (Eliquis) (12/21/24 22:00) Bumetanide Tablet (Bumex Tablet) (12/22/24 10:00) Carvedilol Tablet (Coreg Tablet) (12/21/24 22:00) Hydralazine Hcl Tablet (Apresoline Table (12/21/24 22:00) Hydrocodone-Acet 5/325mg Tab ([place] 5/32 (12/21/24 15:15) Losartan Tablet (Cozaar Tablet) (12/22/24 10:00) Nifedipine Er (Procardia Xl (Time-Releas (12/22/24 10:00) (Nf) Brimonidine Tartrate (Alphagan P) (12/21/24 22:00) Levetiracetam Tablet (Keppra Tablet) (12/21/24 22:00) (Nf) Olopatadine Hcl (Olopatadine Hydroc (12/21/24 22:00) Morphine Sulfate Injection (12/21/24 15:30) Atorvastatin (Lipitor) (12/21/24 22:00) Vital Signs Date Time Temp Pulse Resp B/P (MAP) Pulse Ox O2 Delivery O2 Flow Rate FiO2 12/21/24 15:18 195/123 12/21/24 13:20 189/117 12/21/24 13:10 97.9 89 19 189/117 (141) 99 97.9 12/21/24 13:10 89 19 99 Room Air 12/21/24 11:35 88 18 189/105 (133) 98 12/21/24 09:57 91 12/21/24 08:28 91 12/21/24 08:23 95 18 222/124 (156) 97 12/21/24 08:20 97.9 97 20 227/130 96 97.9 Laboratory Tests Test 12/21/24 08:34 White Blood Count 5.9 10^3/uL (4.4-10.8) Medications Medications Dose Ordered Sig/Misty Route Start Time Stop Time Status Last Admin Dose Admin Hydralazine HCl 5 mg ONCE ONCE IV 12/21/24 12:15 12/21/24 12:16 DC 12/21/24 13:20 5 MG Hydralazine HCl 5 mg ONCE ONCE IV 12/21/24 15:00 12/21/24 15:01 DC 12/21/24 15:18 5 MG Assessment/Plan Assessment/Plan Assessment and plan #Acute chest pain, rule out acute coronary syndrome # hypertensive emergency-patient is a elevated blood pressure, chest pain, shortness of breath -troponin I with a normal limit -EKG no acute STT wave changes -echo on 08/22/2024 revealed LVEF 50%, moderate LVH -hydralazine PRN as prescribed -resume home medication Eliquis, nifedipine, carvedilol -plan is to maintain systolic blood pressure between 160-170 tonight -monitor vitals # ESRD on hemodialysis Thursday/Thursday/Thursday # bilateral leg edema likely due to ESRD/HFpEF -pending nephrology consult -resume home medication bumetanide # history of atrial fibrillation # history of CVA -continue home medication Eliquis # diabetes mellitus type 2 -insulin sliding scale as prescribed # hyperlipidemia -resume home medication atorvastatin # diabetic neuropathy -continue current pain management as prescribed # BPH -Flomax 0.4 mg p.o. q.d. # glaucoma -resume home medication # legally blind -left eye complete loss, left eye hand movement as per patient Goals of care, Code status full code ; discussed with >15 minutes PUD prophylaxis: Pantoprazole DVT prophylaxis: Eliquis Plan discussed with Dr. Anthony , nursing staff, Total time spent on patient evaluation, chart review, assessment and plan, discussion discussion >35 minutes Plan discussed with: Patient, Other (RN) My Orders Orders - RICKY MARTELL RESIDENT Procedure Category Date Status Time Admit ADMIT 12/21/24 Transmitted 15:03 Allergies YOLY 12/21/24 In Process 15:03 Code Status CODE 12/21/24 Transmitted 15:03 Renal DIET 12/21/24 Transmitted Standard(2gna,3gk,Lopho) Dinner Sodium Chloride Lock PHA 12/21/24 In Process (Saline Lock Ns) 22:00 Complete Blood Count LAB 12/22/24 Verified 04:00 Comprehensive LAB 12/22/24 Verified Metabolic Panel 04:00 Cardiac DIET 12/21/24 Transmitted Diet-2gna,Lofat,Lochol Dinner Acetaminophen Tablet PHA 12/21/24 In Process (Tylenol Tablet) 15:15 Nitroglycerin PHA 12/21/24 In Process Sublingual (Ntrostat 15:15 Notify Of Changes YOLY 12/21/24 In Process From Base 15:03 Evp [employer] Experience Strategy For YOLY 12/21/24 In Process 24 Hours 15:03 Oxygen By Nasal RT 12/21/24 Transmitted Cannula 15:03 Apixaban (Eliquis) PHA 12/21/24 In Process 22:00 Bumetanide Tablet PHA 12/22/24 In Process (Bumex Tablet) 10:00 Carvedilol Tablet PHA 12/21/24 In Process (Coreg Tablet) 22:00 Hydralazine Hcl PHA 12/21/24 In Process Tablet (Apresoline 22:00 Hydrocodone-Acet PHA 12/21/24 In Process 5/325mg Tab ([place] 15:15 Losartan Tablet PHA 12/22/24 Logged (Cozaar Tablet) 10:00 Nifedipine Er PHA 12/22/24 Logged (Procardia Xl 10:00 (Nf) Brimonidine PHA 12/21/24 Logged Tartrate (Alphagan P) 22:00 Levetiracetam Tablet PHA 12/21/24 In Process (Keppra Tablet) 22:00 (Nf) Olopatadine Hcl PHA 12/21/24 Logged (Olopatadine Hydroc 22:00 Morphine Sulfate PHA 12/21/24 In Process Injection 15:30 Atorvastatin (Lipitor) PHA 12/21/24 In Process 22:00 Date of Service: Dec 21, 2024 Billing Provider: FABRICIO ANTHONY MD Common Visit Codes: [id number] INP/OBS CARE (HIGH) Secondary Visit Codes: [id number] CARE PLAN 30 MINUTES FABRICIO ANTHONY MD 12/21/24 2217: Review of Systems Allergies: Coded Allergies: Erythromycin (Verified Allergy, Unknown, 04/17/24) Penicillins (Verified Allergy, Unknown, 04/17/24) Date of Service: Dec 21, 2024 Billing Provider: FABRICIO ANTHONY MD Common Visit Codes: [id number] INP/OBS CARE (HIGH) RICKY MARTELL Dec 21, 2024 15:36 FABRICIO ANHTONY MD Dec 21, 2024 22:17
[2024-12-21] MEDS: LABETALOL HCL 20 MG/4 ML VL IV ONE (15:57)
[2024-12-21] MEDS ORDERED: DEXTROSE (50%) 50ML SYRG IV PRN (16:00)
[2024-12-21] MEDS: ENALAPRILAT 1.25 MG/ML-1ML VIAL IV ONE (16:11)
[2024-12-21] MEDS: InsuLIN REG 1unit/0.01ml Soln (100units/ml) SC SCH (17:30)
[2024-12-21] MEDS: ACCU-CHEK COMFORT CURVE STRIP VI SCH (17:31)
[2024-12-21] MEDS: HYDROcodone-ACET 5/325MG TAB PO PRN (17:45)
[2024-12-21 18:23] LABS: Opiate Scree,Urine Neg (NEGATIVE)
[2024-12-21 18:24] LABS: Amphetamine Screen, Urine Neg (NEGATIVE); Barbiturate Scree,Urine Neg (NEGATIVE); Benzodiazephine Screen, Urine Neg (NEGATIVE); Cannabinoid Screen, Urine Neg (NEGATIVE); Cocaine Screen, Urine Neg (NEGATIVE); Phencyclidine Screen, Urine Neg (NEGATIVE)
[2024-12-21 18:26] LABS: Urine Protein, UAD 3+ (Negative)
[2024-12-21] MEDS: CARVEDILOL 12.5 MG TAB PO ONE (19:42)
[2024-12-21] MEDS: ATORVASTATIN 20 MG TAB PO SCH (21:18)
[2024-12-21] MEDS: APIXABAN 2.5 MG TAB PO SCH (21:21)
[2024-12-21] MEDS: levETIRAcetam 500 MG TAB PO SCH (21:21)
[2024-12-21] MEDS: SODIUM CHLOR 0.9% PF (SALINE LOCK) 10ML VIAL/SYR IV SCH (21:25)
[2024-12-21] MEDS: OLOPATADINE HCL EYE LEFTEYE SCH (21:32)
[2024-12-21] MEDS: BRIMONIDINE TARTRATE 0.1% OP SCH (21:33)
[2024-12-21] MEDS ORDERED: CARVEDILOL 12.5 MG TAB PO SCH (22:00)
[2024-12-21] MEDS: ONDANSETRON HCL 4 MG/2 ML VIAL IV ONE (22:07)
[2024-12-22] VITALS (9 sets, daily range): BP systolic 138–196; BP diastolic 78–111; PULSE 75–83; RESP 16–18; TEMP 97.8–98.4; O2SAT 95–98
[2024-12-22 05:48] LABS: Hematocrit 36.0 % (41.0-53.0); Hemoglobin 12.1 g/dL (13.5-17.5); Mean Corpuscular Hemoglobin 31.3 pg (28.0-32.0); Mean Corpuscular Volume 93.3 fL (80.0-100.0); Nucleated Red Blood Cells % 0.1 %
[2024-12-22] MEDS: PANTOPRAZOLE 40 MG TAB PO SCH (05:54)
[2024-12-22 06:02] LABS: Alanine Aminotransferase 10 U/L (7-40); Albumin 3.4 g/dL (3.2-4.8); Alkaline Phosphatase 85 U/L (46-116); Anion Gap 15 (5-15); Glucose 101 mg/dL (74-106); Magnesium 2.0 mg/dL (1.6-2.6); Sodium 144 mmol/L (136-145); Total Protein 5.8 g/dL (5.7-8.2)
[2024-12-22 06:03] LABS: Calcium 8.4 mg/dL (8.7-10.4); Carbon Dioxide 19 mmol/L (20-31); Chloride 110 mmol/L (98-107)
[2024-12-22 06:04] LABS: Potassium 5.6 mmol/L (3.5-5.1)
[2024-12-22 06:05] LABS: BUN/Creatinine Ratio 7.8 (10.0-20.0); Bilirubin, Total 0.3 mg/dL (0.2-1.0); Blood Urea Nitrogen 59 mg/dL (9-23)
[2024-12-22] MEDS ORDERED: ERGOCALCIFEROL 50,000 UNIT(1.25MG) CAP PO SCH (06:30)
[2024-12-22] MEDS: ALBUTEROL SULF 2.5 MG/0.5ML(0.5%) NEB SOLN NEB ONE (06:43)
[2024-12-22] MEDS: InsuLIN REG 1unit/0.01ml Soln (100units/ml) IV ONE (07:21)
[2024-12-22] MEDS: DEXTROSE (50%) 50ML SYRG IV ONE (07:22)
[2024-12-22] MEDS: SODIUM BICARB 8.4% 50Meq/50ml SYR INJ IV ONE (07:25)
[2024-12-22] MEDS: SODIUM ZIRCONIUM CYCL 10 GM PAK PO ONE (07:29)
[2024-12-22] MEDS: LOSARTAN POTASSIUM 50 MG TAB PO ONE (08:58)
[2024-12-22] MEDS: CARVEDILOL 12.5 MG TAB PO ONE (09:00)
[2024-12-22] MEDS: BUMETANIDE 1 MG TAB PO SCH (09:05)
[2024-12-22] MEDS ORDERED: LOSARTAN POTASSIUM 50 MG TAB PO SCH (10:00)
[2024-12-22] MEDS ORDERED: CARVEDILOL 12.5 MG TAB PO SCH ×2 (10:00→22:00)
--- NOTE | 2024-12-22 12:33 | DVHDSRES ---
Discharge Summary Date of Admission Resident Creating Document: RICKY MARTELL RESIDENT Dec 21, 2024 at 15:03 Date of Discharge: Dec 22, 2024 Admitting Diagnosis Hypertensive emergency Labs/Diagnostic Data: Laboratory Results Test 12/22/24 11:29 12/22/24 10:35 12/22/24 05:25 12/21/24 17:56 POC Glucose 109 mg/dl (70-106) Potassium Level 5.0 mmol/L (3.5-5.1) White Blood Count 6.2 10^3/uL (4.4-10.8) Red Blood Count 3.85 10^6/uL (4.5-5.90) Hemoglobin 12.1 g/dL (13.5-17.5) Hematocrit 36.0 % (41.0-53.0) Mean Corpuscular Volume 93.3 fL (80.0-100.0) Mean Corpuscular Hemoglobin 31.3 pg (28.0-32.0) Mean Corpuscular Hemoglobin Concent 33.5 g/dL (32.0-36.0) Red Cell Distribution Width 15.3 % (11.8-14.3) Platelet Count 272 10^3/uL (140-450) Mean Platelet Volume 7.2 fL (6.9-10.8) Neutrophils (%) (Auto) 51.8 % (37.0-80.0) Lymphocytes (%) (Auto) 33.1 % (10.0-50.0) Monocytes (%) (Auto) 10.6 % (0.0-12.0) Eosinophils (%) (Auto) 3.5 % (0.0-7.0) Basophils (%) (Auto) 1.0 % (0.0-2.0) Neutrophils # (Auto) 3.2 10 ^3/uL (1.6-8.6) Lymphocytes # (Auto) 2.1 10 ^3/uL (0.4-5.4) Monocytes # (Auto) 0.7 10 ^3/uL (0-1.3) Eosinophils # (Auto) 0.2 10 ^3/uL (0-0.8) Basophils # (Auto) 0.1 10 ^3/uL (0-0.2) Nucleated Red Blood Cells 0.1 % Sodium Level 144 mmol/L (136-145) Chloride Level 110 mmol/L (98-107) Carbon Dioxide Level 19 mmol/L (20-31) Anion Gap 15 (5-15) Blood Urea Nitrogen 59 mg/dL (9-23) Creatinine 7.57 mg/dL (0.700-1.30) Glomerular Filtration Rate Calc 8 mL/min (>90) BUN/Creatinine Ratio 7.8 (10.0-20.0) Serum Glucose 101 mg/dL (74-106) Calcium Level 8.4 mg/dL (8.7-10.4) Magnesium Level 2.0 mg/dL (1.6-2.6) Total Bilirubin 0.3 mg/dL (0.2-1.0) Aspartate Amino Transferase (AST) 13 U/L (13-40) Alanine Aminotransferase (ALT) 10 U/L (7-40) Alkaline Phosphatase 85 U/L (46-116) Total Protein 5.8 g/dL (5.7-8.2) Albumin 3.4 g/dL (3.2-4.8) Urine Color Light-yellow (Yellow) Urine Clarity Clear (Clear) Urine pH 7.5 (5.0-9.0) Urine Specific [place] 1.013 (1.001-1.035) Urine Protein 3+ (Negative) Urine Ketones Negative (Negative) Urine Blood 1+ /uL (Negative) Urine Nitrite Negative (Negative) Urine Bilirubin Negative (Negative) Urine Urobilinogen Normal mg/dL (Negative) Urine Leukocyte Esterase Negative /uL (Negative) Urine RBC 2 /hpf (0 - 3) Urine Microscopic WBC 1 /HPF (0-3) Urine Squamous Epithelial Cells None seen /hpf (<5) Urine Bacteria None seen /hpf (None Seen) Urine Glucose 3+ mg/dL (Normal) Urine Opiates Screen Neg (NEGATIVE) Urine Fentanyl Screen Neg (NEGATIVE) Urine Barbiturates Screen Neg (NEGATIVE) Urine Phencyclidine Screen Neg (NEGATIVE) Urine Amphetamines Screen Neg (NEGATIVE) Urine Benzodiazepines Screen Neg (NEGATIVE) Urine Cocaine Screen Neg (NEGATIVE) Urine Cannabinoids Screen Neg (NEGATIVE) Test 12/21/24 11:42 12/21/24 08:34 Troponin I High Sensitivity 12 ng/L (</=54) Hemoglobin A1c 6.1 % A1C (<5.7) B-Type Natriuretic Peptide 431.29 pg/mL (0-100) Vitamin B12 Level 453 pg/mL (211-911) Vitamin D 25-Hydroxy 15.7 ng/mL (30.0-100) Folic Acid 13.64 ng/mL (>5.38) Other Laboratory Tests 12/22/24 10:35 12/22/24 05:25 Brief Hx & Hospital Course: Patient is 54 years old male with a past medical history of hypertension, diabetes mellitus type 2, hyperlipidemia, AFib, CVA, seizure disorder, CKD on hemodialysis Thursday/Thursday/Thursday at [facility], HFpEF, schizophrenia, history of asthma, legal blindness left eye, diabetic retinopathy, glaucoma, BPH came with a complaint of chest pain and shortness of breaths along with the elevated blood pressure. As per patient he started having chest pain in in the right side, sudden onset, woke him up from sleep, 12/30, radiating to the both arms and legs, constant. Patient also reported having shortness of breaths associated with chest pain. Patient further reports having elevated blood pressure systolic more than 200. On further inquiry patient also reported having chronic leg pain and leg swelling but could not give me exact duration. Patient denied any fever, palpitation, dysuria, diarrhea, acute dysarthria. Patient reported being noncompliant with the medication, he does not take any medication other than antihypertensive medication. Patient reported his last dialysis was on last Thursday. On arrival patient's blood pressure was 227/130, pulse 97. Initial EKG no acute ST elevation or T-wave changes, sinus rhythm, troponin I with in normal limit, blood workup revealed serum creatinine 7.07, BUN 64, GFR 9, troponin I with a normal limit, sodium 146, hemoglobin 12.6. CXR- Internal jugular catheter in place in the tip in the right atrium. Diffuse increased interstitial markings compared to 11/16/2024. Cardiac size stable. Findings may represent fluid overload. Patient's blood pressure was well controlled with medications. Patient was seen by Nephrology. Patient was had dialysis today. Patient's hydralazine increased from 25 to 50 mg q.8h. Patient was advised to follow up with the primary care physician in 1 week and also to follow up with the screen maker in 1-2 weeks for further management of hypertension. Patient was advised to resume his outpatient dialysis as per schedule. Patient was counseled about the importance of med adherence. Patient was hemodynamically stable on discharge. Patient's meds were sent to the pharmacy electronically. Operations or Procedures [address] [address] Ph: [phone] DIAGNOSTIC IMAGING Diagnostic Imaging Report : [id number] Signed PATIENT: ASHELY ZELAYA DACCT: [id number] UNIT: [id number] : 1970 LOC: ER ROOM / BED: / AGE / SEX: 54 / M ADM STATUS: REG ER SERVICE 1 ORDERING PHYSICIAN: TOM THAKKAR RESIDENT PROCEDURE(s): CXR1 - CHEST XRAY 1 VIEW REASON: Chest pain ORDER NUMBER(s): [id number], ACCESSION NUMBER(s): [id number] CHEST RADIOGRAPH Indication: Chest pain Technique: Single frontal view of the chest was obtained Comparison: XY CHEST PORTABLE on DOS: 11/16/24, XY CHEST XRAY 1 VIEW on DOS: 10/28/24, XY CHEST XRAY 1 VIEW on DOS: 10/10/24 FINDINGS: Lines and Tubes: Right internal jugular catheter in place with the tip in the right atrium. Lungs: Diffuse increased interstitial markings may represent fluid overload. Pleura: No effusion. No pneumothorax. Cardiomediastinal contours: Unremarkable Bones: No acute osseous abnormality. IMPRESSION: 1. Internal jugular catheter in place in the tip in the right atrium. 2. Diffuse increased interstitial markings compared to 11/16/2024. Cardiac size stable. Findings may represent fluid overload. HS:Y ATED BY: CAROLYNN MANN Jr., DO DICTATED DATE/TIME: 12/21/24942 SIGNED BY: CAROLYNN MANN Jr., DO SIGNED DATE/TIME: 12/21/24942 CC: Condition at Discharge: Stable Final Diagnosis/Problems List #Acute chest pain, ruleD out acute coronary syndrome # hypertensive emergency- # ESRD on hemodialysis Thursday/Thursday/Thursday # bilateral leg edema likely due to ESRD/HFpEF # history of atrial fibrillation # history of CVA # diabetes mellitus type 2 # hyperlipidemia # diabetic neuropathy # BPH # glaucoma # legally blind Discharge Disposition: Home Discharge Instruct/Medications Diet: Consistent carbohydrate, Cardiac 2g Na,low cholest, Renal Activity: No Restrictions, As Tolerated Follow Up/Referral: Please follow up with the primary care physician in 1 week Please follow up with your screen maker in 1-2 weeks Please return to your dialysis schedule as per Nephrology recommendation Medications: Hydralazine 50 mg p.o. t.i.d. Please other resume home medications Scheduled Apixaban Base (Eliquis), 2.5 MG PO BID Atorvastatin Calcium (Lipitor), 40 MG PO DAILY Brimonidine Tartrate (Alphagan P), 0.1 % OP TID Bumetanide (Bumetanide), 1 TAB PO DAILY Carvedilol (Coreg), 12.5 MG PO Q12HR Dorzolamide HCl-Timolol Maleat (Cosopt 2-0.5 %), 1 KEERTHI OP BID Hydralazine Hcl (Hydralazine Hcl), 1 TAB PO TID Levetiracetam (Levetiracetam), 1 TAB PO BID Losartan Potassium (Losartan Potassium), 50 MG PO DAILY Nifedipine (Nifedipine Er), 90 MG PO DAILY Olopatadine HCl (Olopatadine Hydrochloride), 1 DROP LEFTEYE BID, (Reported) Scheduled PRN Hydrocodone-Acetaminophen (Hydrocodone Bitartrate/AC 5-325 mg), 1-2 TAB PO Q6HP PRN Miscellaneous Medications Insulin Lispro (Insulin Lispro Thai Kwi), (Reported) Quetiapine Fumerate (Quetiapine Fumarate), 1 TAB PO, (Reported) Discontinued Medications Hydralazine Hcl (Hydralazine Hcl), 25 MG PO TID Discharge Statement: "Patient was advised to return to the ER or call 911 if any headaches, dizziness, shortness of breath, chest pain, abdominal pain, bleeding, fevers, or worsening of medical condition. Patient was counseled about treatment plan, medications, possible side effects, patientverbalized understanding. All questions were answered to the best of my ability. This discharge took greater then 30 minutes in planning, reviewing documentation, counseling the patient, and discussing with other team members." ASSESSMENT ASSESSMENT Assessment Date of Service: Dec 22, 2024 Billing Provider: FABRICIO ANTHONY MD Common Visit Codes: [id number]/[id number] DISCH DAY >30min RICKY MARTELL RESIDENT Dec 22, 2024 12:33 FABRICIO ANTHONY MD Dec 23, 2024 19:54
[2024-12-22] MEDS ORDERED: HYDR50TA47 PO (12:36)
[2024-12-22] MEDS: hydrALAZINE HCL 20 MG/ML VL IV ONE (13:25)
--- NOTE | 2024-12-22 14:03 | DVHCONRES ---
Date Seen: Dec 22, 2024 Resident Creating Document: KRYSTLE RODRIGUEZ RESIDENT Referring Physician Ishmael Martell, Resident Reason for Consultation ESRD on hemodialysis History of Present Illness Patient is 54 years old male with a past medical history of hypertension, diabetes mellitus type 2, hyperlipidemia, AFib, CVA, seizure disorder, CKD on hemodialysis Thursday/Thursday/Thursday at [facility], HFpEF, schizophrenia, history of asthma, legal blindness left eye, diabetic retinopathy, glaucoma, BPH came with a complaint of chest pain and shortness of breaths along with the elevated blood pressure. As per patient he started having chest pain in in the right side, sudden onset, woke him up from sleep, 12/30, radiating to the both arms and legs, constant. Patient also reported having shortness of breaths associated with chest pain. Patient further reports having elevated blood pressure systolic more than 200. On further inquiry patient also reported having chronic leg pain and leg swelling but could not give me exact duration. Patient denied any fever, palpitation, dysuria, diarrhea, acute dysarthria. Patient reported being noncompliant with the medication, he does not take any medication other than antihypertensive medication. Patient reported his last dialysis was on last Thursday. On arrival patient's blood pressure was 227/130, pulse 97. Initial EKG no acute ST elevation or T-wave changes, sinus rhythm, troponin I with in normal limit. Patient Was seen and examined on the bedside. He is alert oriented x3 and complaint of pain on the back of the head. No other active complaint. Past Medical History Hypertension, diabetes mellitus type 2, hyperlipidemia, AFib, CVA, seizure disorder, CKD on hemodialysis Thursday/Thursday/Thursday at [facility], HFpEF, schizophrenia, legal blindness left eye, diabetic retinopathy, glaucoma, BPH Past Surgical History Unknown Family History: Diabetes mellitus G8 MOTHER, FH: CHF (congestive heart failure) G8 FATHER, Allergies: Coded Allergies: Erythromycin (Verified Allergy, Unknown, 04/17/24) Penicillins (Verified Allergy, Unknown, 04/17/24) Home Meds Active Scripts Hydralazine Hcl (Hydralazine Hcl) 50 Mg Tab, 1 TAB PO TID, #90 TAB Prov:RICKY MARTELL RESIDENT 12/22/24 Nifedipine (Nifedipine Er) 30 Mg Tab, 90 MG PO DAILY for 30 Days, #90 TAB Prov[facility] 11/20/24 Losartan Potassium (Losartan Potassium) 50 Mg Tab, 50 MG PO DAILY for 30 Days, #30 TAB Prov:[facility]BAR[facility]armenNOR[facility] 11/20/24 Dorzolamide HCl-Timolol Maleat (Cosopt 2-0.5 %) 1 Keerthi Keerthi, 1 KEERTHI OP BID for 30 Days, #10 ML 1 [facility] 11/20/24 Brimonidine Tartrate (Alphagan P) 0.1 % Keerthi, 0.1 % OP TID for 30 Days, #10 ML 1 Refill Prov:[facility] 11/20/24 Hydrocodone-Acetaminophen (Hydrocodone Bitartrate/AC 5-325 mg) 1 Tab Tab, 1-2 TAB PO Q6HP PRN, #30 TAB Prov:QASIM BEJARANO MD 10/28/24 Hydralazine Hcl (Hydralazine Hcl) 25 Mg Tab, 25 MG PO TID for 90 Days, #270 TAB [facility] 08/23/24 Carvedilol (COREG) 12.5 Mg Tab, 12.5 MG PO Q12HR for 30 Days, #60 TAB Prov[facility] 08/23/24 Apixaban Base (ELIQUIS) 2.5 Mg Tab, 2.5 MG PO BID for 30 Days, #60 TAB Prov[facility] 08/23/24 Atorvastatin Calcium (Lipitor) 40 Mg Tab, 40 MG PO DAILY for 40 Days, #40 TAB Prov:[facility] 08/23/24 Bumetanide (Bumetanide) 1 Mg Tab, 1 TAB PO DAILY for 30 Days, #30 TAB Prov[facility] 08/23/24 Levetiracetam (Levetiracetam) 1,000 Mg Tab, 1 TAB PO BID for 30 Days, #60 TAB Prov[facility] 08/23/24 Reported Medications Quetiapine Fumerate (QUETIAPINE FUMARATE) 50 Mg Tab, 1 TAB PO 06/07/24 Insulin Lispro (Insulin Lispro Thai Kwi) 100 Unit/Ml Inj 06/07/24 Olopatadine HCl (Olopatadine Hydrochloride) 0.1 % Melchor, 1 DROP LEFTEYE BID 06/07/24 Current Medications Current Medications Medications (Trade) Dose Ordered Sig/Misty Route PRN Reason Start Time Stop Time Status Last Admin Sodium Chloride (Saline Lock Ns) 10 ml Q8HR IV 12/21/24 22:00 12/22/24 06:01 Acetaminophen (Tylenol Tablet) 650 mg Q6HP PRN PO PAIN SCALE 1-3 OR TEMP>100.4 12/21/24 15:15 Nitroglycerin (Ntrostat Sublingual) 0.4 mg Q5MINP PRN SL FOR CHEST PAIN 12/21/24 15:15 Morphine Sulfate 2 mg Q30M PRN IV FOR CHEST PAIN 12/21/24 15:30 Apixaban (Eliquis) 2.5 mg BID PO 12/21/24 22:00 12/21/24 21:21 Bumetanide (Bumex Tablet) 1 mg DAILY PO 12/22/24 10:00 Carvedilol (Coreg Tablet) 12.5 mg Q12HR PO 12/21/24 22:00 12/21/24 19:07 DC Hydralazine HCl (Apresoline Tablet) 25 mg TID PO 12/21/24 22:00 12/22/24 12:34 DC 12/22/24 05:54 Acetaminophen/ Hydrocodone Bitart ([place] 5/325MG Tab) 1 tab Q6HP PRN PO PAIN SCALE 7 THRU 10 12/21/24 15:15 12/22/24 13:51 Losartan Potassium (Cozaar Tablet) 50 mg DAILY PO 12/22/24 10:00 12/22/24 10:00 DC Nifedipine (Procardia Xl (Time-Release)) 90 mg DAILY PO 12/22/24 10:00 12/22/24 08:44 DC Atorvastatin Calcium (Lipitor) 40 mg HS PO 12/21/24 22:00 12/21/24 21:18 Patient Own Medication 0.1 % TID OP 12/21/24 22:00 Levetiracetam (Keppra Tablet) 1,000 mg BID PO 12/21/24 22:00 12/22/24 09:00 Patient Own Medication 1 drop BID LEFTEYE 12/21/24 22:00 Diagnostic Test (Pha) (Accu-Chek Comfort Curve T) 1 strip ACHS 12/21/24 17:00 12/22/24 11:37 Insulin Human Regular (InsuLIN R) ACHS SC 12/21/24 17:00 Dextrose 50 ml UD PRN IV Blood Sugar LESS THAN 60 12/21/24 16:00 Pantoprazole Sodium (Protonix Tablet) 40 mg DAILY@0600 PO 12/22/24 06:00 12/22/24 05:54 Carvedilol (Coreg Tablet) 12.5 mg Q12HR PO 12/22/24 10:00 12/22/24 08:42 DC Ergocalciferol (Vitamin D 50,000 Unit) 50,000 unit Q7D PO 12/22/24 06:30 Losartan Potassium (Cozaar Tablet) 50 mg DAILY PO 12/23/24 10:00 12/22/24 09:11 DC Nifedipine (Procardia Xl (Time-Release)) 90 mg DAILY PO 12/23/24 10:00 12/22/24 09:11 DC Carvedilol (Coreg Tablet) 12.5 mg Q12HR PO 12/22/24 22:00 Losartan Potassium (Cozaar Tablet) 50 mg DAILY PO 12/23/24 09:15 Nifedipine (Procardia Xl (Time-Release)) 90 mg DAILY PO 12/23/24 09:15 Hydralazine HCl (Apresoline Tablet) 50 mg TID PO 12/22/24 14:00 Review of Systems Constitutional: No: Fever, Chills, Sweats, Weakness, Malaise, Other Eyes: No: Pain, Vision change, Conjunctivae inflammation, Eyelid inflammation, Other, Redness ENT: No: Ear pain, Ear discharge, Nose pain, Nose discharge, Nose congestion, Mouth pain, Mouth swelling, Throat pain, Throat swelling, Other Respiratory: Shortness of breath, improving No: Cough, Dry,Wheezing, Hemoptysis, Pleuritic Pain, Sputum, Wheezing, Other Cardiovascular: No: Chest Pain, Palpitations, Orthopnea, Paroxysmal Noc. Dyspnea, Edema, Lt Headedness, Other Gastrointestinal: No: Nausea, Vomiting, Abdominal Pain, Diarrhea, Constipation, Melena, Hematochezia, Other Musculoskeletal: No: other, neck pain, shoulder pain, arm pain, back pain, hand pain, leg pain, foot pain Neurological:; No: Weakness, Numbness, Incoordination, Change in speech, Confusion, Seizures Vital Signs Vital Signs Date Time Temp Pulse Resp B/P (MAP) Pulse Ox O2 Delivery O2 Flow Rate FiO2 12/22/24 13:25 192/101 12/22/24 09:00 97.8 79 18 95 97.8 12/22/24 08:00 Room Air* 0 21 Physical Exam Physical examination: General Appearance: Alert, Oriented X3, Cooperative, No acute distress HEENT: Atraumatic, PERRLA, EOMI, Mucous membrane moist/pink Respiratory: Tunnel catheter on the right chest, Clear to auscultation, Normal air movement Cardiovascular: Regular rate, Normal S1, Normal S2, No murmurs, no chest wall tenderness Abdominal: Normal bowel sounds, Soft, No tenderness, No hepatospenomegaly, No masses Extremities: No clubbing, No cyanosis, No edema, Normal pulses, No tenderness/swelling Skin: No rashes, No breakdown, No significant lesion Neuro: Normal gait, Normal speech, Strength at 5/5 X4 ext, Normal tone, Sensation intact, Cranial nerves 3-12 NL, Reflexes 2+ Psych/Mental Status: Mental status NL, Mood NL Labs/Diagnostic Data Labs Test 12/22/24 11:29 12/22/24 10:35 12/22/24 05:25 12/21/24 17:56 Range/Units POC Glucose 109 H 70-106 mg/dl Potassium Level 5.0 3.5-5.1 mmol/L White Blood Count 6.2 4.4-10.8 10^3/uL Red Blood Count 3.85 L 4.5-5.90 10^6/uL Hemoglobin 12.1 L 13.5-17.5 g/dL Hematocrit 36.0 L 41.0-53.0 % Mean Corpuscular Volume 93.3 80.0-100.0 fL Mean Corpuscular Hemoglobin 31.3 28.0-32.0 pg Mean Corpuscular Hemoglobin Concent 33.5 32.0-36.0 g/dL Red Cell Distribution Width 15.3 H 11.8-14.3 % Platelet Count 272 140-450 10^3/uL Mean Platelet Volume 7.2 6.9-10.8 fL Neutrophils (%) (Auto) 51.8 37.0-80.0 % Lymphocytes (%) (Auto) 33.1 10.0-50.0 % Monocytes (%) (Auto) 10.6 0.0-12.0 % Eosinophils (%) (Auto) 3.5 0.0-7.0 % Basophils (%) (Auto) 1.0 0.0-2.0 % Neutrophils # (Auto) 3.2 1.6-8.6 10 ^3/uL Lymphocytes # (Auto) 2.1 0.4-5.4 10 ^3/uL Monocytes # (Auto) 0.7 0-1.3 10 ^3/uL Eosinophils # (Auto) 0.2 0-0.8 10 ^3/uL Basophils # (Auto) 0.1 0-0.2 10 ^3/uL Nucleated Red Blood Cells 0.1 % Sodium Level 144 136-145 mmol/L Chloride Level 110 H 98-107 mmol/L Carbon Dioxide Level 19 L 20-31 mmol/L Anion Gap 15 5-15 Blood Urea Nitrogen 59 H 9-23 mg/dL Creatinine 7.57 H 0.700-1.30 mg/dL Glomerular Filtration Rate Calc 8 >90 mL/min BUN/Creatinine Ratio 7.8 L 10.0-20.0 Serum Glucose 101 74-106 mg/dL Calcium Level 8.4 L 8.7-10.4 mg/dL Magnesium Level 2.0 1.6-2.6 mg/dL Total Bilirubin 0.3 0.2-1.0 mg/dL Aspartate Amino Transferase (AST) 13 13-40 U/L Alanine Aminotransferase (ALT) 10 7-40 U/L Alkaline Phosphatase 85 46-116 U/L Total Protein 5.8 5.7-8.2 g/dL Albumin 3.4 3.2-4.8 g/dL Urine Color Light-yellow Yellow Urine Clarity Clear Clear Urine pH 7.5 5.0-9.0 Urine Specific Reese 1.013 1.001-1.035 Urine Protein 3+ H Negative Urine Ketones Negative Negative Urine Blood 1+ H Negative /uL Urine Nitrite Negative Negative Urine Bilirubin Negative Negative Urine Urobilinogen Normal Negative mg/dL Urine Leukocyte Esterase Negative Negative /uL Urine RBC 2 0 - 3 /hpf Urine Microscopic WBC 1 0-3 /HPF Urine Squamous Epithelial Cells None seen <5 /hpf Urine Bacteria None seen None Seen /hpf Urine Glucose 3+ H Normal mg/dL Urine Opiates Screen Neg NEGATIVE Urine Fentanyl Screen Neg NEGATIVE Urine Barbiturates Screen Neg NEGATIVE Urine Phencyclidine Screen Neg NEGATIVE Urine Amphetamines Screen Neg NEGATIVE Urine Benzodiazepines Screen Neg NEGATIVE Urine Cocaine Screen Neg NEGATIVE Urine Cannabinoids Screen Neg NEGATIVE Test 12/21/24 11:42 12/21/24 08:34 Range/Units Troponin I High Sensitivity 12 </=54 ng/L Hemoglobin A1c 6.1 H <5.7 % A1C B-Type Natriuretic Peptide 431.29 0-100 pg/mL Vitamin B12 Level 453 211-911 pg/mL Vitamin D 25-Hydroxy 15.7 L 30.0-100 ng/mL Folic Acid 13.64 >5.38 ng/mL Assessment Assessment and plan: # ESRD on hemodialysis # Hypertensive emergency # Noncompliance with antihypertensive # Hyperkalemia # Metabolic acidosis # Vitamin D deficiency Plan: - Scheduled for hemodialysis today - Hyperkalemia protocol management - Continue antihypertensive for optimize control of blood pressure - management as per primary - strict I&O - Monitor BMP Thank you so much for the opportunity to consult on your patient. Nephro team will follow the patient. In case of any questions or concerns please feel free to reach out. Plan discussed with Dr. Friedman . The patient and caregiver team agreed to the plan. Plan discussed with: Patient, Other KRYSTLE RODRIGUEZ RESIDENT Dec 22, 2024 14:03
[2024-12-22] MEDS: SODIUM CHL 0.9% 1000 ML BAG XX ONE (16:00)
[2024-12-23] MEDS ORDERED: LOSARTAN POTASSIUM 50 MG TAB PO SCH ×2 (09:15→10:00)
== END 2024-12-22 17:03 | disposition home or self-care (01) | DRG 199 ==
LOC: ER 08:22 → OVERFLOW 15:03 → TELE-EAST 23:58
PROVIDERS: ADMIT Student in an Organized Health Care Education/Training Program; ATTEND Student in an Organized Health Care Education/Training Program
PROC: 5A1D70Z Performance of Urinary Filtration, Intermittent, Less than 6 Hours Per Day (ICD-10-PCS; principal; 2024-12-22)
DX: I16.1 Hypertensive emergency (principal); N18.6 End stage renal disease; I50.32 Chronic diastolic (congestive) heart failure; I48.91 Unspecified atrial fibrillation; G40.909 Epilepsy, unspecified, not intractable, without status epilepticus; E11.40 Type 2 diabetes mellitus with diabetic neuropathy, unspecified; E11.22 Type 2 diabetes mellitus with diabetic chronic kidney disease; E78.5 Hyperlipidemia, unspecified; G89.29 Other chronic pain; H40.9 Unspecified glaucoma; I13.2 Hypertensive heart and chronic kidney disease with heart failure and with stage 5 chronic kidney disease, or end stage renal disease; J45.909 Unspecified asthma, uncomplicated; N40.0 Benign prostatic hyperplasia without lower urinary tract symptoms; H54.8 Legal blindness, as defined in USA; F20.9 Schizophrenia, unspecified; Z86.73 Personal history of transient ischemic attack (TIA), and cerebral infarction without residual deficits; Z99.2 Dependence on renal dialysis; Z88.1 Allergy status to other antibiotic agents; Z88.0 Allergy status to penicillin; Z91.148 Patient's other noncompliance with medication regimen for other reason; Z83.3 Family history of diabetes mellitus; Z82.49 Family history of ischemic heart disease and other diseases of the circulatory system
CPT/HCPCS: 36415; 71045; 80053; 80307; 81001; 82306; 82607; 82746; 82962; 83036; 83735; 83880; 84132; 84484; 85025; 87340; 90935; 93005; 96374; G0378; J1642; J1815; J2405

== ENCOUNTER 2024-12-26 11:44 | Inpatient (IN) | payer MEDICAID ==
[~2024-12-26] VITALS: Ht 185.4 cm; Wt 91.3 kg
[~2024-12-26 11:44] MED LIST changes: -HYDR25TA88 PO; +HYDR50TA47 PO
--- NOTE | 2024-12-26 12:19 | ED.PDOC ---
HPI Comments 54 year old male with PMHx of a-fib, CAD, CHF, CVA, DM, ESRD, HLD, HTN, NM, Seizure, schizophrenia, legal blindness Lt eye, presents to the ED with a chief complaint of chest pain onset today (12/26/24). Patient states he was asleep, woke up experiencing chest pain described as a pressure sensation radiating to jaw. He is also experiencing shortness of breath, nausea. He goes to dialysis Thursday, Thursday, Thursday at 17:00, has not gone today. Patient was discharged from [facility] 12/22/24, was admitted due to chest pain. Upon ED arrival, patient was hypertensive, BP 228/131. Denies fever, chills, vomiting, diarrhea, abdominal pain, dizziness, hematemesis, dysuria, sore throat, cough, congestion. No other symptoms or modifying factors present at this time. Chief Complaint: Chest Pain Time Seen by MD: 12:10 Primary Care Provider: KELLIE Red Notes: Medications, Allergies Allergies: Coded Allergies: Erythromycin (Verified Allergy, Unknown, 04/17/24) Penicillins (Verified Allergy, Unknown, 04/17/24) Home Meds Active Scripts Hydralazine Hcl (Hydralazine Hcl) 50 Mg Tab, 1 TAB PO TID, #90 TAB Prov:RICKY MARTELL RESIDENT 12/22/24 Nifedipine (Nifedipine Er) 30 Mg Tab, 90 MG PO DAILY for 30 Days, #90 TAB Prov:GULSHAN JIMENEZ 11/20/24 Losartan Potassium (Losartan Potassium) 50 Mg Tab, 50 MG PO DAILY for 30 Days, #30 TAB Prov:GULSHAN JIMENEZ 11/20/24 Dorzolamide HCl-Timolol Maleat (Cosopt 2-0.5 %) 1 Keerthi Keerthi, 1 KEERTHI OP BID for 30 Days, #10 ML 1 Refill Prov:GULSHAN JIMENEZ 11/20/24 Brimonidine Tartrate (Alphagan P) 0.1 % Keerthi, 0.1 % OP TID for 30 Days, #10 ML 1 Refill Prov:GULSHAN JIMENEZ 11/20/24 Hydrocodone-Acetaminophen (Hydrocodone Bitartrate/AC 5-325 mg) 1 Tab Tab, 1-2 TAB PO Q6HP PRN, #30 TAB Prov:QASIM BEJARANO MD 10/28/24 Carvedilol (COREG) 12.5 Mg Tab, 12.5 MG PO Q12HR for 30 Days, #60 TAB Prov:CLINT LucíaBERTRAM 08/23/24 Apixaban Base (ELIQUIS) 2.5 Mg Tab, 2.5 MG PO BID for 30 Days, #60 TAB Prov:BERTRAM LARKIN 08/23/24 Atorvastatin Calcium (Lipitor) 40 Mg Tab, 40 MG PO DAILY for 40 Days, #40 TAB Prov:BERTRAM LARKIN 08/23/24 Bumetanide (Bumetanide) 1 Mg Tab, 1 TAB PO DAILY for 30 Days, #30 TAB Prov:BERTRAM LARKIN 08/23/24 Levetiracetam (Levetiracetam) 1,000 Mg Tab, 1 TAB PO BID for 30 Days, #60 TAB Prov:BERTRAM LARKIN 08/23/24 Reported Medications Quetiapine Fumerate (QUETIAPINE FUMARATE) 50 Mg Tab, 1 TAB PO 06/07/24 Insulin Lispro (Insulin Lispro Thai Kwi) 100 Unit/Ml Inj 06/07/24 Olopatadine HCl (Olopatadine Hydrochloride) 0.1 % Melchor, 1 DROP LEFTEYE BID 06/07/24 Discontinued Scripts Hydralazine Hcl (Hydralazine Hcl) 25 Mg Tab, 25 MG PO TID for 90 Days, #270 TAB Prov:CLINT BERTRAM Castrejon [facility] 08/23/24 Information Source: Patient Mode of Arrival: Wheelchair Severity: Moderate Timing: Hours Duration: Since onset Prehospital treatment: None Location: Chest (L) Radiation: Jaw Quality: Pressure Onset: While Asleep Cardiac Risk Factors: Smoker, Hyperlipidemia, HTN, Diabetes PE Risk Factors: None History of: NM Modifying Factors: Nothing Associated Signs and Symptoms: SOB Past Medical History PAST MEDICAL HISTORY: AFIB, CAD, CHF, CVA, DM, ESRD, High Lipids, HTN, NM, Schizophrenia, Seizures Surgical History (Other): head surgery Family History Family History: Reviewed,noncontributory to illness Social History Smoker: Cigarettes Alcohol: Denies ETOH Use Drugs: Denies Drug Use Lives In: Assisted Care Constitutional: denies: chills, diaphoresis, fatigue, fever, malaise, sweats, weakness, others EENTM: reports: others (jaw pain); denies: blurred vision, double vision, ear bleeding, ear discharge, ear drainage, ear pain, ear ringing, eye pain, eye redness, hearing loss, mouth pain, mouth swelling, nasal discharge, nose bleeding, nose congestion, nose pain, photophobia, tearing, throat pain, throat swelling, voice changes Respiratory: reports: shortness of breath; denies: cough, hemoptysis, orthopnea, SOB at rest, SOB with excertion, stridor, wheezing, others Cardiovascular: reports: chest pain; denies: dizzy spells, diaphoresis, Dyspnea on exertion, edema, irregular heart beat, left arm pain, lightheadedness, palpitations, PND, syncope, others Gastrointestinal: reports: nausea; denies: abdomen distended, abdominal pain, blood streaked bowels, constipated, diarrhea, dysphagia, difficulty swallowing, hematemesis, melena, poor appetite, poor fluid intake, rectal bleeding, rectal pain, vomiting, others Genitourinary: denies: burning, dysuria, flank pain, frequency, hematuria, incontinence, penile discharge, penile sore, pain, testicle pain, testicle swelling, urgency, others Neurological: denies: dizziness, fainting, headache, left sided numbness, left sided weakness, numbness, paresthesia, pre-existing deficit, right sided numbness, right sided weakness, seizure, speech problems, tingling, tremors, weakness, others Musculoskeletal: denies: back pain, gout, joint pain, joint swelling, muscle pain, muscle stiffness, neck pain, others Integumetry: denies: bruises, change in color, change in hair/nails, dryness, laceration, lesions, lumps, rash, wounds, others Allergic/Immunocompromised: denies: Difficulty Healing, Frequent Infections, Hives, Itching, others Hematologic/Lymphatic: denies: anemia, blood clots, easy bleeding, easy bruising, swollen glands, others Endocrine: denies: excessive hunger, excessive sweating, excessive thirst, excessive urination, flushing, intolerance to cold, intolerance to heat, unexplained weight gain, unexplained weight loss, others Psychiatric: denies: anxiety, bipolar disorder, depression, hopeless, panic disorder, schizophrenia, sleepless, suicidal, others All Other Systems: Reviewed and Negative Physical Exam General Appearance: Moderate Distress HEENT: Normal ENT Inspection, Pharynx Normal, TMs Normal Neck: Full Range of Motion, Non-Tender, Normal, Normal Inspection Respiratory: Chest Non-Tender, Lungs Clear, No Accessory Muscle Use, No Respiratory Distress, Normal Breath Sounds Cardiovascular: No Edema, No JVD, No Murmur, No Gallop, Other (Catheter to the right chest) Breast Exam: Deferred Gastrointestinal: No Organomegaly, Non Tender, No Pulsatile Mass, Normal Bowel Sounds, Soft Genitalia: Deferred Pelvic: Deferred Rectal: Deferred Extremities: No calf tenderness, Normal capillary refill, Non-tender, No pedal edema Musculoskeletal : Apperance: Normal Neurologic: Alert, state comptroller II-XII nml as Tested, Motor Weakness, Normal Affect, Normal Mood, No Sensory Deficits Cerebellar Function: Normal Reflexes: Normal Skin: Dry, Normal Color, Warm Lymphatic: No Adenopathy EKG EKG : Pulse Rate (adult): 91 Henderson: Normal Cardiac Rhythm: NSR Block: None ST: Nonsp Was a procedure done? Was a procedure done?: No CP Differential Dx Differential Diagnosis: Angina, NM, Pulmonary Embolus Differential Diagnosis: CHF Differential Diagnosis: Pericarditis X-Ray, Labs, Meds, VS Vital Signs Date Time Temp Pulse Resp B/P (MAP) Pulse Ox O2 Delivery O2 Flow Rate FiO2 12/26/24 15:55 143/83 12/26/24 15:47 143/83 12/26/24 15:30 79 15 143/83 (103) 94 12/26/24 14:47 81 12/26/24 14:00 81 19 172/94 (120) 96 12/26/24 12:46 85 17 222/139 12/26/24 12:45 89 12/26/24 12:10 95 12/26/24 12:10 98.0 93 18 228/131 (163) 94 98.0 12/26/24 12:10 Room Air* 0 21 12/26/24 12:02 228/131 12/26/24 11:49 91 12/26/24 11:47 97.8 91 20 211/122 97 97.8 Lab Test 12/26/24 15:19 12/26/24 13:18 12/26/24 12:05 Range/Units Troponin I High Sensitivity 22 21 21 </=54 ng/L White Blood Count 8.9 # 4.4-10.8 10^3/uL Red Blood Count 4.19 L 4.5-5.90 10^6/uL Hemoglobin 12.9 L 13.5-17.5 g/dL Hematocrit 39.1 L 41.0-53.0 % Mean Corpuscular Volume 93.3 80.0-100.0 fL Mean Corpuscular Hemoglobin 30.9 28.0-32.0 pg Mean Corpuscular Hemoglobin Concent 33.1 32.0-36.0 g/dL Red Cell Distribution Width 14.7 H 11.8-14.3 % Platelet Count 264 140-450 10^3/uL Mean Platelet Volume 6.9 6.9-10.8 fL Neutrophils (%) (Auto) 63.1 37.0-80.0 % Lymphocytes (%) (Auto) 24.2 10.0-50.0 % Monocytes (%) (Auto) 8.6 0.0-12.0 % Eosinophils (%) (Auto) 3.4 0.0-7.0 % Basophils (%) (Auto) 0.7 0.0-2.0 % Neutrophils # (Auto) 5.6 1.6-8.6 10 ^3/uL Lymphocytes # (Auto) 2.2 0.4-5.4 10 ^3/uL Monocytes # (Auto) 0.8 0-1.3 10 ^3/uL Eosinophils # (Auto) 0.3 0-0.8 10 ^3/uL Basophils # (Auto) 0.1 0-0.2 10 ^3/uL Nucleated Red Blood Cells 0.0 % Sodium Level 142 136-145 mmol/L Potassium Level 5.4 H 3.5-5.1 mmol/L Chloride Level 110 H 98-107 mmol/L Carbon Dioxide Level 16 L 20-31 mmol/L Anion Gap 16 H 5-15 Blood Urea Nitrogen 64 H 9-23 mg/dL Creatinine 7.91 H 0.700-1.30 mg/dL Glomerular Filtration Rate Calc 7 >90 mL/min BUN/Creatinine Ratio 8.1 L 10.0-20.0 Serum Glucose 99 74-106 mg/dL Calcium Level 8.4 L 8.7-10.4 mg/dL B-Type Natriuretic Peptide 1045.23 0-100 pg/mL Current Medications Medications (Trade) Dose Ordered Sig/Misty Route Start Time Stop Time Status Last Admin Clonidine HCl (Catapres Tablet) 0.2 mg ONCE ONCE PO 12/26/24 12:00 12/26/24 12:01 DC 12/26/24 12:02 Aspirin 162 mg ONCE ONCE PO 12/26/24 12:15 12/26/24 12:16 DC 12/26/24 12:27 Morphine Sulfate 2 mg ONCE ONCE IV 12/26/24 12:15 12/26/24 12:16 DC 12/26/24 12:46 Ondansetron HCl (Zofran) 4 mg ONCE ONCE IV 12/26/24 12:15 12/26/24 12:16 DC 12/26/24 12:45 PROCEDURE(s): CXRP - CHEST PORTABLE IMPRESSION: Mild reactive airways disease. The lungs are otherwise clear. The patient was given clonidine 0.2 mg by mouth The patient was also given aspirin 162 mg by mouth For the chest pain, the patient was given morphine 2 mg IV push The patient was given Zofran 4 mg IV push The BNP is 1045.23 The BUN is 64 and the creatinine 7.91 The patient does have a history of chronic kidney disease in his currently on dialysis The patient's potassium is 5.4 We did get a Nephrology consult since the patient did not get dialysis today. For the potassium, the patient is being given calcium as well as sodium bicarbonate The CBC is within normal limits The troponin level x2 is negative The patient is receiving 20 mg of hydralazine for the elevated blood pressure The patient will be admitted at this time Images Reviewed?: Images reviewed and evaluated by me Time of 1ST Reevaluation: 12:40 Reevaluation 1ST: Unchanged Patient Education/Counseling: Diagnosis, Treatment, Prognosis Family Education/Counseling: No Family Present SEPSIS Sepsis Screen Date sepsis recognized/suspect: Dec 26, 2024 Time Sepsis recognized/suspect: 1148 Recent Procedure: No On Antibiotic Therapy: No Respiratory Rate >20: No Heart Rate >90: Yes Temp<36 C (96.8 F) or >38.3 C: No SBP <90 or MAP <65 mmHG: No New Acute Mental Status Change: No Is the patient on CPAP, BIPAP,: No Physician Orders Electrocardigram (12/26/24 12:54) Electrocardigram (12/26/24 14:54) Chest Portable (12/26/24 12:10) Heplock Iv (12/26/24 12:10) Rental Counter Clerk (12/26/24 12:10) Pulse Oximetry (12/26/24 12:10) Vital Signs Date Time Temp Pulse Resp B/P (MAP) Pulse Ox O2 Delivery O2 Flow Rate FiO2 12/26/24 15:55 143/83 12/26/24 15:47 143/83 12/26/24 15:30 79 15 143/83 (103) 94 12/26/24 14:47 81 12/26/24 14:00 81 19 172/94 (120) 96 12/26/24 12:46 85 17 222/139 12/26/24 12:45 89 12/26/24 12:10 95 12/26/24 12:10 98.0 93 18 228/131 (163) 94 98.0 12/26/24 12:10 Room Air* 0 21 12/26/24 12:02 228/131 12/26/24 11:49 91 12/26/24 11:47 97.8 91 20 211/122 97 97.8 Laboratory Tests Test 12/26/24 12:05 White Blood Count 8.9 10^3/uL (4.4-10.8) # Medications Medications Dose Ordered Sig/Misty Route Start Time Stop Time Status Last Admin Dose Admin Aspirin 162 mg ONCE ONCE PO 12/26/24 12:15 12/26/24 12:16 DC 12/26/24 12:27 Clonidine HCl 0.2 mg ONCE ONCE PO 12/26/24 12:00 12/26/24 12:01 DC 12/26/24 12:02 Morphine Sulfate 2 mg ONCE ONCE IV 12/26/24 12:15 12/26/24 12:16 DC 12/26/24 12:46 Ondansetron HCl 4 mg ONCE ONCE IV 12/26/24 12:15 12/26/24 12:16 DC 12/26/24 12:45 Departure 1 Departure Time of Disposition: 15:31 Impression: Primary Impression: Acute myocardial ischemia Additional Impressions: Accelerated hypertension ESRD needing dialysis Hyperkalemia Disposition: 09 ADMITTED INPATIENT Admit to: Tele Condition: Fair Critical Care Note Critical Care Time?: Yes (35 min-critical care time only) Stability Stability form required: Yes Unstable for transfer: Telemetry monitoring (Telemetry monitoring required), ED Physician Assesment (Clinical assesment) Heart Score Heart Score: Heart Score Response (Comments) Value History Moderate Suspicious 1 EKG Repolarization Disturb 1 Age 45-64 1 Risk Factors >3 or Hx ASHD 2 Troponin Normal limit 0 Total 5 I personally scribed for VERONICA LARSON MD ([email or web address]) on 12/26/24 at 12:19. Electronically submitted by Meena Pedersen ([email or web address]). I personally scribed for VERONICA LARSON MD ([email or web address]) on 12/26/24 at 13:20. E lectronically submitted by Meena Pedersen ([email or web address]). VERONICA LARSON MD Dec 26, 2024 12:19
[2024-12-26 12:25] LABS: Hematocrit 39.1 % (41.0-53.0); Hemoglobin 12.9 g/dL (13.5-17.5); Mean Corpuscular Hemoglobin 30.9 pg (28.0-32.0); Mean Corpuscular Volume 93.3 fL (80.0-100.0); Nucleated Red Blood Cells % 0.0 %
[2024-12-26 12:32] LABS: Sodium 142 mmol/L (136-145)
[2024-12-26 12:33] LABS: Anion Gap 16 (5-15)
[2024-12-26 12:34] LABS: Calcium 8.4 mg/dL (8.7-10.4); Carbon Dioxide 16 mmol/L (20-31); Chloride 110 mmol/L (98-107); Potassium 5.4 mmol/L (3.5-5.1)
[2024-12-26 12:39] LABS: BUN/Creatinine Ratio 8.1 (10.0-20.0); Blood Urea Nitrogen 64 mg/dL (9-23); Glucose 99 mg/dL (74-106)
[2024-12-26] MEDS: ONDANSETRON HCL 4 MG/2 ML VIAL IV ONE (12:45)
--- NOTE | 2024-12-26 12:45 | DVH ---
EXAM: XY CHEST PORTABLE HISTORY: cp COMPARISON: XY CHEST XRAY 1 VIEW on DOS: 12/21/24, XY CHEST PORTABLE on DOS: 11/16/24, XY CHEST XRAY 1 VIEW on DOS: 10/28/24, XY CHEST XRAY 1 VIEW on DOS: 10/10/24, XY CHEST XRAY 1 VIEW on DOS: 09/16/24 TECHNIQUE: Portable AP view of the chest was performed. FINDINGS: Right chest tunneled dialysis catheter is re-identified with its tip in the right atrium. No pneumoth orax, consolidative infiltrates, or pulmonary edema. There is central peribronchial thickening. The h eart is not enlarged. There is an old healed fracture of the left mid clavicle. There is slight thora cic dextroscoliosis. IMPRESSION: Mild reactive airways disease. The lungs are otherwise clear.
[2024-12-26] MEDS: MORPHINE SULFATE 4 MG/ML SYR/VIAL IV ONE (12:46)
--- NOTE | 2024-12-26 12:46 | ECG ---
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
[2024-12-26] MEDS: hydrALAZINE HCL 20 MG/ML VL IV ONE (15:55)
[2024-12-26] MEDS: SODIUM BICARB 8.4% 50Meq/50ml SYR Vial IV ONE (17:12)
[2024-12-26] MEDS: CALCIUM GLUC 1,000mg/50ml-NS 50 ML IV ONE (17:13)
[2024-12-26] MEDS ORDERED: DEXTROSE (50%) 50ML SYRG IV PRN (19:30)
[2024-12-26] MEDS ORDERED: NITROGLYCERIN 0.4 MG SL TAB SL PRN (19:30)
[2024-12-26 19:35] VITALS: PULSE 78; RESP 16; O2SAT 96
[2024-12-26] MEDS: SODIUM ZIRCONIUM CYCL 10 GM PAK PO ONE (20:08)
[2024-12-26] MEDS: FUROSEMIDE 40 MG/4 ML VIAL IV ONE (20:08)
[2024-12-26] MEDS: hydrALAZINE HCL 20 MG/ML VL IV PRN (20:09)
[2024-12-26] MEDS: MORPHINE SULFATE 4 MG/ML SYR/VIAL IV PRN (21:14)
[2024-12-26] MEDS: APIXABAN 2.5 MG TAB PO SCH (21:58)
[2024-12-26] MEDS: CARVEDILOL 12.5 MG TAB PO SCH (21:58)
[2024-12-26] MEDS: levETIRAcetam 500 MG TAB PO SCH (21:58)
[2024-12-26] MEDS: ATORVASTATIN 20 MG TAB PO SCH (21:59)
--- NOTE | 2024-12-26 22:03 | DVHHP2 ---
History of Present Illness Reason for Visit: Chest pain History of Present Illness 54-year-old male presents for evaluation of chest pain. Patient endorses a one day history of left-sided pressure-like chest pain that radiates to his neck he associates having shortness for breath. Due to the symptoms patient missed his dialysis session today. Denies cough or fever. No other acute complaints reported. Past Medical History CHF, diabetes mellitus, AFib, end-stage renal disease, hypertension, schizophrenia, seizures Past Surgical History Dialysis access Family History Noncontributory Smoke: <1 pack per day ALCOHOL: none Drugs: None Lives: with Family Review of Systems Review of Systems Review of systems are currently negative otherwise addressed in HPI. Allergies: Coded Allergies: Erythromycin (Verified Allergy, Unknown, 04/17/24) Penicillins (Verified Allergy, Unknown, 04/17/24) Medications Current Medications Medications Dose Ordered Sig/Misty Route Start Time Stop Time Status Last Admin Dose Admin Apixaban 2.5 mg BID PO 12/26/24 22:00 Atorvastatin Calcium 40 mg HS PO 12/26/24 22:00 Carvedilol 12.5 mg Q12HR PO 12/26/24 22:00 Hydralazine HCl 50 mg Q8HR PO 12/26/24 22:00 Levetiracetam 1,000 mg BID PO 12/26/24 22:00 Losartan Potassium 50 mg DAILY PO 12/27/24 10:00 Nifedipine 90 mg DAILY PO 12/27/24 10:00 Hydralazine HCl 10 mg Q6HP PRN IV 12/26/24 19:30 12/26/24 20:09 10 MG Furosemide 40 mg DAILY IV 12/27/24 10:00 Diagnostic Test (Pha) 1 strip ACHS 12/26/24 22:00 Insulin Human Regular ACHS SC 12/26/24 22:00 Dextrose 50 ml UD PRN IV 12/26/24 19:30 Ondansetron HCl 4 mg Q4HP PRN IV 12/26/24 19:30 Acetaminophen 650 mg Q6HP PRN PO 12/26/24 19:30 Nitroglycerin 0.4 mg Q5MINP PRN SL 12/26/24 19:30 Morphine Sulfate 2 mg Q30M PRN IV 12/26/24 19:30 12/26/24 21:14 2 MG Exam Vital Signs Vital Signs Date Time Temp Pulse Resp B/P (MAP) Pulse Ox O2 Delivery O2 Flow Rate FiO2 12/26/24 21:14 87 18 188/104 12/26/24 20:00 98.1 96 98.1 12/26/24 19:35 Room Air* 0 21 Exam Gen: 54-year-old male in mild distress Skin: Warm, dry, normal color and texture, no rash. HEENT: Normocephalic atraumatic, mucous membranes moist and pink. Neck: Cervical and supraclavicular nodes normal without enlargement, trachea is midline, thyroid gland is normal without masses. Pulmonary: Clear to auscultation and percussion bilaterally. Cardiac: Regular rate and rhythm. No murmur Abdomen: Soft, nontender, nondistended, bowel sounds present all 4 quadrants, no guarding, no rigidity, no organomegaly. Extremities: No cyanosis, clubbing, no edema Neuro: Cranial nerves II through XII grossly intact, normal affect and speech, no focal motor deficits. Labs/Xrays ORDERING PHYSICIAN: PRIYANK SUÁREZ MD PROCEDURE(s): ECIDC - ECHO 2D MODE CARDIAC DOP REASON: Syncope ORDER NUMBER(s): [id number], ACCESSION NUMBER(s): [id number] APPROVED REPORT EXAM: Two-dimensional and M-mode echocardiogram with Doppler and color Doppler. Blood Pressure: 153/96 mmHg INDICATION Syncope RISK FACTORS Height: 6', Weight: 204 DIMENSIONS LVDd 4.6 (3.8-5.7cm) LA (2D) 3.8 (1.9-4.0cm) Aortic Root 3.2 (2.0-3.7cm) LVDs 3.5 (2.5-4.0cm) LA (MM) (1.9-4.0cm) Aortic Cusp Exc 2.0 (1.5- 2.0cm) EF (%) 47.0 (55-70%) Rt. Atrium 3.1 (1.9-4.0cm) Asc. Aorta cm IVSd 1.2 (0.7-1.1cm) RV (D) 3.2 (1.8-2.4cm) PWd 1.1 (0.7-1.1cm) Mitral Valve Mitral Mitral Stenosis E/A ratio 0.0 2D MVA cm2 Aortic Valve Aortic Valve Aortic Stenosis V1 0.93m/s AO Mean GR. 3mmHg V2 0.94m/s AO Peak GR. 4mmHg LVOT Diameter 2.4 (1.8-2.4cm) Doppler KAILA 4.47cm2 Pulmonic Valve V2 1.02m/s Other Information Quality : Technically Limited Rhythm : Technically limited study due to body habitus. Conclusion lvef 50% moderate LVH low normal rv function left atrium enlarged borderline ORDERING PHYSICIAN: VERONICA LARSON MD PROCEDURE(s): CXRP - CHEST PORTABLE REASON: cp ORDER NUMBER(s): [id number], ACCESSION NUMBER(s): [id number] EXAM: XY CHEST PORTABLE HISTORY: cp COMPARISON: XY CHEST XRAY 1 VIEW on DOS: 12/21/24, XY CHEST PORTABLE on DOS: 11/16/24, XY CHEST XRAY 1 VIEW on DOS: 10/28/24, XY CHEST XRAY 1 VIEW on DOS: 10/10/24, XY CHEST XRAY 1 VIEW on DOS: 09/16/24 TECHNIQUE: Portable AP view of the chest was performed. FINDINGS: Right chest tunneled dialysis catheter is re-identified with its tip in the right atrium. No pneumothorax, consolidative infiltrates, or pulmonary edema. There is central peribronchial thickening. The heart is not enlarged. There is an old healed fracture of the left mid clavicle. There is slight thoracic dextroscoliosis. IMPRESSION: Mild reactive airways disease. The lungs are otherwise clear. Labs Test 12/26/24 15:19 12/26/24 12:05 Range/Units Troponin I High Sensitivity 22 </=54 ng/L White Blood Count 8.9 # 4.4-10.8 10^3/uL Red Blood Count 4.19 L 4.5-5.90 10^6/uL Hemoglobin 12.9 L 13.5-17.5 g/dL Hematocrit 39.1 L 41.0-53.0 % Mean Corpuscular Volume 93.3 80.0-100.0 fL Mean Corpuscular Hemoglobin 30.9 28.0-32.0 pg Mean Corpuscular Hemoglobin Concent 33.1 32.0-36.0 g/dL Red Cell Distribution Width 14.7 H 11.8-14.3 % Platelet Count 264 140-450 10^3/uL Mean Platelet Volume 6.9 6.9-10.8 fL Neutrophils (%) (Auto) 63.1 37.0-80.0 % Lymphocytes (%) (Auto) 24.2 10.0-50.0 % Monocytes (%) (Auto) 8.6 0.0-12.0 % Eosinophils (%) (Auto) 3.4 0.0-7.0 % Basophils (%) (Auto) 0.7 0.0-2.0 % Neutrophils # (Auto) 5.6 1.6-8.6 10 ^3/uL Lymphocytes # (Auto) 2.2 0.4-5.4 10 ^3/uL Monocytes # (Auto) 0.8 0-1.3 10 ^3/uL Eosinophils # (Auto) 0.3 0-0.8 10 ^3/uL Basophils # (Auto) 0.1 0-0.2 10 ^3/uL Nucleated Red Blood Cells 0.0 % Sodium Level 142 136-145 mmol/L Potassium Level 5.4 H 3.5-5.1 mmol/L Chloride Level 110 H 98-107 mmol/L Carbon Dioxide Level 16 L 20-31 mmol/L Anion Gap 16 H 5-15 Blood Urea Nitrogen 64 H 9-23 mg/dL Creatinine 7.91 H 0.700-1.30 mg/dL Glomerular Filtration Rate Calc 7 >90 mL/min BUN/Creatinine Ratio 8.1 L 10.0-20.0 Serum Glucose 99 74-106 mg/dL Calcium Level 8.4 L 8.7-10.4 mg/dL B-Type Natriuretic Peptide 1045.23 0-100 pg/mL SEPSIS Sepsis Screen Date sepsis recognized/suspect: Dec 26, 2024 Time Sepsis recognized/suspect: 1934 Recent Procedure: No On Antibiotic Therapy: No Respiratory Rate >20: No Heart Rate >90: No Temp<36 C (96.8 F) or >38.3 C: No SBP <90 or MAP <65 mmHG: No New Acute Mental Status Change: No Is the patient on CPAP, BIPAP,: No Physician Orders *[facility] (12/26/24 19:17) Apixaban (Eliquis) (12/26/24 22:00) Atorvastatin (Lipitor) (12/26/24 22:00) Carvedilol Tablet (Coreg Tablet) (12/26/24 22:00) Hydralazine Hcl Tablet (Apresoline Table (12/26/24 22:00) Levetiracetam Tablet (Keppra Tablet) (12/26/24 22:00) Losartan Tablet (Cozaar Tablet) (12/27/24 10:00) Nifedipine Er (Procardia Xl (Time-Releas (12/27/24 10:00) Hydralazine Injection (Apresoline Inject (12/26/24 19:30) Basic Metabolic Panel (12/27/24 04:00) Consistent Carb(Ccho)Diabetes (12/27/24 Breakfast) Glucose Blood (Accu-Chek Comfort Curve T (12/26/24 22:00) Insulin R (Human) (Insulin R) (12/26/24 22:00) Dextrose 50% Syringe (12/26/24 19:30) Admit (12/26/24 19:17) Ondansetron Hcl (Zofran) (12/26/24 19:30) Condition: Fair (12/26/24 19:17) Acetaminophen Tablet (Tylenol Tablet) (12/26/24 19:30) Bedrest With Bathroom Privileg (12/26/24 19:17) Nitroglycerin Sublingual (Ntrostat Subli (12/26/24 19:30) Stat Ekg For Chest Pain (12/26/24 19:17) Notify Md Of Changes From Base (12/26/24 19:17) Ethanol Operator For 24 Hours (12/26/24 19:17) Emergency Dysrhythmia Protocol (12/26/24 19:17) Rhythm Strips Once Every Shift (12/26/24 19:17) Oxygen By Nasal Cannula (12/26/24 19:17) Furosemide Injection (Lasix Injection) (12/27/24 10:00) Morphine Sulfate Injection (12/26/24 19:30) Vital Signs Date Time Temp Pulse Resp B/P (MAP) Pulse Ox O2 Delivery O2 Flow Rate FiO2 12/26/24 21:14 87 18 188/104 12/26/24 20:09 181/111 12/26/24 20:08 181/111 12/26/24 20:00 98.1 74 14 181/111 (134) 96 98.1 12/26/24 19:35 78 16 96 Room Air* 0 21 12/26/24 18:30 74 17 177/109 (131) 90 12/26/24 16:37 91 12/26/24 16:30 80 16 144/80 (101) 94 12/26/24 16:00 80 12/26/24 15:55 143/83 12/26/24 15:47 143/83 12/26/24 15:30 79 15 143/83 (103) 94 12/26/24 14:47 81 12/26/24 14:00 81 19 172/94 (120) 96 Laboratory Tests Test 12/26/24 12:05 White Blood Count 8.9 10^3/uL (4.4-10.8) # Medications Medications Dose Ordered Sig/Misty Route Start Time Stop Time Status Last Admin Dose Admin Aspirin 162 mg ONCE ONCE PO 12/26/24 12:15 12/26/24 12:16 DC 12/26/24 12:27 162 MG Calcium Gluconate/ Sodium Chloride 50 ml @ 100 mls/hr ONCE ONCE IV 12/26/24 16:45 12/26/24 17:14 DC 12/26/24 17:13 100 MLS/HR Clonidine HCl 0.2 mg ONCE ONCE PO 12/26/24 12:00 12/26/24 12:01 DC 12/26/24 12:02 0.2 MG Furosemide 40 mg ONCE ONCE IV 12/26/24 19:30 12/26/24 19:55 DC 12/26/24 20:08 40 MG Hydralazine HCl 10 mg Q6HP PRN IV 12/26/24 19:30 12/26/24 20:09 10 MG Morphine Sulfate 2 mg ONCE ONCE IV 12/26/24 12:15 12/26/24 12:16 DC 12/26/24 12:46 2 MG Morphine Sulfate 2 mg Q30M PRN IV 12/26/24 19:30 12/26/24 21:14 2 MG Ondansetron HCl 4 mg ONCE ONCE IV 12/26/24 12:15 12/26/24 12:16 DC 12/26/24 12:45 4 MG Sodium Bicarbonate 50 ml ONCE ONCE IV 12/26/24 16:45 12/26/24 16:46 DC 12/26/24 17:12 50 ML Zirconium Oxide 10 gm ONCE ONCE PO 12/26/24 19:30 12/26/24 19:55 DC 12/26/24 20:08 10 GM Assessment/Plan Assessment/Plan Assessment Fluid overload Chest pain secondary to the above End-stage renal disease, dialysis dependent Diabetes mellitus Accelerated hypertension Plan Admit the patient to telemetry to the hospitalist Nephrology consultation IV Lasix Resume home medications Continue treatment per orders. Plan discussed with: Patient My Orders Orders - LUIS MCLAUGHLIN Procedure Category Date Status Time *Dr[facility] CONS 12/26/24 Transmitted -[place] 19:17 Apixaban (Eliquis) PHA 12/26/24 In Process 22:00 Atorvastatin (Lipitor) PHA 12/26/24 In Process 22:00 Carvedilol Tablet PHA 12/26/24 In Process (Coreg Tablet) 22:00 Hydralazine Hcl PHA 12/26/24 In Process Tablet (Apresoline 22:00 Levetiracetam Tablet PHA 12/26/24 In Process (Keppra Tablet) 22:00 Losartan Tablet PHA 12/27/24 In Process (Cozaar Tablet) 10:00 Nifedipine Er PHA 12/27/24 In Process (Procardia Xl 10:00 Hydralazine Injection PHA 12/26/24 In Process (Apresoline Inject 19:30 Basic Metabolic Panel LAB 12/27/24 Verified 04:00 Consistent DIET 12/27/24 Transmitted Carb(Ccho)Diabetes Breakfast Glucose Blood PHA 12/26/24 In Process (Accu-Chek Comfort 22:00 Insulin R (Human) PHA 12/26/24 In Process (Insulin R) 22:00 Dextrose 50% Syringe PHA 12/26/24 In Process 19:30 Admit ADMIT 12/26/24 Transmitted 19:17 Ondansetron Hcl PHA 12/26/24 In Process (Zofran) 19:30 Condition: Fair [facility] 12/26/24 In Process 19:17 Acetaminophen Tablet PHA 12/26/24 In Process (Tylenol Tablet) 19:30 Bedrest With Bathroom [facility] 12/26/24 In Process Privileg 19:17 Nitroglycerin [facility] 12/26/24 In Process Sublingual (Ntrostat 19:30 Stat Ekg For Chest [facility] 12/26/24 In Process Pain 19:17 Notify Md Of Changes [facility] 12/26/24 In Process From Base 19:17 Ethanol Operator For [facility] 12/26/24 In Process 24 Hours 19:17 Emergency Dysrhythmia [facility] 12/26/24 In Process Protocol 19:17 Rhythm Strips Once [facility] 12/26/24 In Process Every Shift 19:17 Oxygen By Nasal RT 12/26/24 Transmitted Cannula 19:17 Furosemide Injection [facility] 12/27/24 In Process (Lasix Injection) 10:00 Morphine Sulfate [facility] 12/26/24 In Process Injection 19:30 Date of Service: Dec 26, 2024 Billing Provider: LUIS MCLAUGHLIN Common Visit Codes: [id number] INP/OBS CARE (HIGH) LUIS MCLAUGHLIN Dec 26, 2024 22:03
[2024-12-26] MEDS: ACCU-CHEK COMFORT CURVE STRIP VI SCH (23:04)
[2024-12-26] MEDS: InsuLIN REG 1unit/0.01ml Soln (100units/ml) SC SCH (23:05)
[2024-12-27] MEDS: ACETAMINOPHEN 325 MG TAB PO PRN (03:14)
[2024-12-27 04:55] LABS: Potassium 5.0 mmol/L (3.5-5.1); Sodium 144 mmol/L (136-145)
[2024-12-27 04:56] LABS: Anion Gap 15 (5-15)
[2024-12-27 05:00] LABS: Calcium 8.2 mg/dL (8.7-10.4); Carbon Dioxide 18 mmol/L (20-31); Chloride 111 mmol/L (98-107)
[2024-12-27 05:01] LABS: BUN/Creatinine Ratio 7.4 (10.0-20.0); Glucose 96 mg/dL (74-106)
[2024-12-27 05:05] LABS: Blood Urea Nitrogen 59 mg/dL (9-23)
[2024-12-27 06:30] VITALS: BP 120/71; PULSE 80; RESP 16; TEMP 98.2; O2SAT 95
--- NOTE | 2024-12-27 07:37 | ECG ---
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
[2024-12-27 08:00] VITALS: PULSE 68; PULSE 78; RESP 16; O2SAT 96
[2024-12-27] MEDS: FUROSEMIDE 40 MG/4 ML VIAL IV SCH (10:13)
[2024-12-27] MEDS: LOSARTAN POTASSIUM 50 MG TAB PO SCH (10:15)
--- NOTE | 2024-12-27 11:43 | DVHCONRES ---
Date Seen: Dec 27, 2024 Resident Creating Document: KRYSTLE RODRIGUEZ RESIDENT Referring Physician PEDRO Mehta Reason for Consultation ESRD on hemodialysis History of Present Illness This is a 54-year-old male with past medical history of ESRD on hemodialysis 3 times a week (M, W, F), type 2 diabetes mellitus, AFib, schizophrenia, hypertension, seizure disorder presented to the ED with a chief complaint of chest pain for 1 day prior to this visit. According to the patient he complaint of central chest pain which was 7/10, sharp pain, radiates to both arms and associated with shortness of breath. He missed dialysis yesterday because of the hospital admission. he denies fever, chills, cough with productive sputum, abdominal pain, nausea, vomiting or any change in bowel habit. Patient was seen and examined on the bedside. He is alert oriented x3. Mentioned improvement of chest pain and no other active complaint this time. Past Medical History ESRD on hemodialysis 3 times a week (M, W, F), type 2 diabetes mellitus, AFib, schizophrenia, hypertension, seizure disorder Past Surgical History Unknown Family History: Diabetes mellitus G8 MOTHER, FH: CHF (congestive heart failure) G8 FATHER, Allergies: Coded Allergies: Erythromycin (Verified Allergy, Unknown, 04/17/24) Penicillins (Verified Allergy, Unknown, 04/17/24) Home Meds Active Scripts Hydralazine Hcl (Hydralazine Hcl) 50 Mg Tab, 1 TAB PO TID, #90 TAB Prov:RICKY MARTELL RESIDENT 12/22/24 Nifedipine (Nifedipine Er) 30 Mg Tab, 90 MG PO DAILY for 30 Days, #90 TAB Prov:GULSHAN JIMENEZ RESIDENT 11/20/24 Losartan Potassium (Losartan Potassium) 50 Mg Tab, 50 MG PO DAILY for 30 Days, #30 TAB Prov:GULSHAN JIMENEZ RESIDENT 11/20/24 Dorzolamide HCl-Timolol Maleat (Cosopt 2-0.5 %) 1 Keerthi Keerthi, 1 KEERTHI OP BID for 30 Days, #10 ML 1 Refill Prov:GULSHAN JIMENEZ [facility] 11/20/24 Brimonidine Tartrate (Alphagan P) 0.1 % Keerthi, 0.1 % OP TID for 30 Days, #10 ML 1 Refill Prov:GULSHAN JIMENEZ RESIDENT 11/20/24 Hydrocodone-Acetaminophen (Hydrocodone Bitartrate/AC 5-325 mg) 1 Tab Tab, 1-2 TAB PO Q6HP PRN, #30 TAB Prov:QASIM BEJARANO MD 10/28/24 Carvedilol (COREG) 12.5 Mg Tab, 12.5 MG PO Q12HR for 30 Days, #60 TAB Prov[facility] 08/23/24 Apixaban Base (ELIQUIS) 2.5 Mg Tab, 2.5 MG PO BID for 30 Days, #60 TAB Prov:CLINT [facility] 08/23/24 Atorvastatin Calcium (Lipitor) 40 Mg Tab, 40 MG PO DAILY for 40 Days, #40 TAB Prov:CLINT [facility] 08/23/24 Bumetanide (Bumetanide) 1 Mg Tab, 1 TAB PO DAILY for 30 Days, #30 TAB Prov:CLINT [facility] 08/23/24 Levetiracetam (Levetiracetam) 1,000 Mg Tab, 1 TAB PO BID for 30 Days, #60 TAB Prov:CLINT [facility] 08/23/24 Reported Medications Quetiapine Fumerate (QUETIAPINE FUMARATE) 50 Mg Tab, 1 TAB PO 06/07/24 Insulin Lispro (Insulin Lispro Thai Kwi) 100 Unit/Ml Inj 06/07/24 Olopatadine HCl (Olopatadine Hydrochloride) 0.1 % Melchor, 1 DROP LEFTEYE BID 06/07/24 Discontinued Scripts Hydralazine Hcl (Hydralazine Hcl) 25 Mg Tab, 25 MG PO TID for 90 Days, #270 TAB Prov:CL[facility] 08/23/24 Current Medications Current Medications Medications (Trade) Dose Ordered Sig/Misty Route PRN Reason Start Time Stop Time Status Last Admin Apixaban (Eliquis) 2.5 mg BID PO 12/26/24 22:00 12/27/24 10:14 Atorvastatin Calcium (Lipitor) 40 mg HS PO 12/26/24 22:00 12/26/24 21:59 Carvedilol (Coreg Tablet) 12.5 mg Q12HR PO 12/26/24 22:00 12/27/24 10:13 Hydralazine HCl (Apresoline Tablet) 50 mg Q8HR PO 12/26/24 22:00 10/7/25 06:52 Levetiracetam (Keppra Tablet) 1,000 mg BID PO 12/26/24 22:00 12/27/24 10:14 Losartan Potassium (Cozaar Tablet) 50 mg DAILY PO 12/27/24 10:00 12/27/24 10:15 Nifedipine (Procardia Xl (Time-Release)) 90 mg DAILY PO 12/27/24 10:00 12/27/24 10:14 Hydralazine HCl (Apresoline Injection) 10 mg Q6HP PRN IV SBP>150 12/26/24 19:30 12/26/24 20:09 Furosemide (Lasix Injection) 40 mg DAILY IV 12/27/24 10:00 12/27/24 10:13 Diagnostic Test (Pha) (Accu-Chek Comfort Curve T) 1 strip ACHS 12/26/24 22:00 12/27/24 08:56 Insulin Human Regular (InsuLIN R) ACHS SC 12/26/24 22:00 Dextrose 50 ml UD PRN IV Blood Sugar LESS THAN 60 12/26/24 19:30 Ondansetron HCl (Zofran) 4 mg Q4HP PRN IV NAUSEA / VOMITING 12/26/24 19:30 Acetaminophen (Tylenol Tablet) 650 mg Q6HP PRN PO PAIN SCALE 1-3 OR TEMP>100.4 12/26/24 19:30 12/27/24 03:14 Nitroglycerin (Ntrostat Sublingual) 0.4 mg Q5MINP PRN SL FOR CHEST PAIN 12/26/24 19:30 Morphine Sulfate 2 mg Q30M PRN IV FOR CHEST PAIN 12/26/24 19:30 12/27/24 10:36 Review of Systems Constitutional: No: Fever, Chills, Sweats, Weakness, Malaise, Other Eyes: No: Pain, Vision change, Conjunctivae inflammation, Eyelid inflammation, Other, Redness ENT: No: Ear pain, Ear discharge, Nose pain, Nose discharge, Nose congestion, Mouth pain, Mouth swelling, Throat pain, Throat swelling, Other Respiratory: Shortness of breath, improving No: Cough, Dry,Wheezing, Hemoptysis, Pleuritic Pain, Sputum, Wheezing, Other Cardiovascular: Chest Pain, No Palpitations, Orthopnea, Paroxysmal Noc. Dyspnea, Edema, Lt Headedness, Other Gastrointestinal: No: Nausea, Vomiting, Abdominal Pain, Diarrhea, Constipation, Melena, Hematochezia, Other Musculoskeletal: No: other, neck pain, shoulder pain, arm pain, back pain, hand pain, leg pain, foot pain Neurological:; No: Weakness, Numbness, Incoordination, Change in speech, Confusion, Seizures Vital Signs Vital Signs Date Time Temp Pulse Resp B/P (MAP) Pulse Ox O2 Delivery O2 Flow Rate FiO2 12/27/24 11:34 75 165/75 12/27/24 11:33 16 12/27/24 09:30 97.9 95 97.9 12/27/24 08:00 Room Air* 0 21 Physical Exam Physical examination: General Appearance: Alert, Oriented X3, Cooperative, No acute distress HEENT: Atraumatic, PERRLA, EOMI, Mucous membrane moist/pink Respiratory: Dialysis catheter in right IJ in chest, Clear to auscultation, Normal air movement Cardiovascular: Regular rate, Normal S1, Normal S2, No murmurs, no chest wall tenderness Abdominal: Normal bowel sounds, Soft, No tenderness, No hepatospenomegaly, No masses Extremities: No clubbing, No cyanosis, No edema, Normal pulses, No tend erness/swelling Skin: No rashes, No breakdown, No significant lesion Neuro: Normal speech, Strength at 5/5 X4 ext, Normal tone, Sensation intact Psych/Mental Status: Mental status NL, Mood NL Labs/Diagnostic Data Labs Test 12/27/24 04:15 12/26/24 23:04 12/26/24 15:19 12/26/24 12:05 Range/Units Sodium Level 144 136-145 mmol/L Potassium Level 5.0 3.5-5.1 mmol/L Chloride Level 111 H 98-107 mmol/L Carbon Dioxide Level 18 L 20-31 mmol/L Anion Gap 15 5-15 Blood Urea Nitrogen 59 H 9-23 mg/dL Creatinine 7.98 H 0.700-1.30 mg/dL Glomerular Filtration Rate Calc 7 >90 mL/min BUN/Creatinine Ratio 7.4 L 10.0-20.0 Serum Glucose 96 74-106 mg/dL Calcium Level 8.2 L 8.7-10.4 mg/dL POC Glucose 94 70-106 mg/dl Troponin I High Sensitivity 22 </=54 ng/L White Blood Count 8.9 # 4.4-10.8 10^3/uL Red Blood Count 4.19 L 4.5-5.90 10^6/uL Hemoglobin 12.9 L 13.5-17.5 g/dL Hematocrit 39.1 L 41.0-53.0 % Mean Corpuscular Volume 93.3 80.0-100.0 fL Mean Corpuscular Hemoglobin 30.9 28.0-32.0 pg Mean Corpuscular Hemoglobin Concent 33.1 32.0-36.0 g/dL Red Cell Distribution Width 14.7 H 11.8-14.3 % Platelet Count 264 140-450 10^3/uL Mean Platelet Volume 6.9 6.9-10.8 fL Neutrophils (%) (Auto) 63.1 37.0-80.0 % Lymphocytes (%) (Auto) 24.2 10.0-50.0 % Monocytes (%) (Auto) 8.6 0.0-12.0 % Eosinophils (%) (Auto) 3.4 0.0-7.0 % Basophils (%) (Auto) 0.7 0.0-2.0 % Neutrophils # (Auto) 5.6 1.6-8.6 10 ^3/uL Lymphocytes # (Auto) 2.2 0.4-5.4 10 ^3/uL Monocytes # (Auto) 0.8 0-1.3 10 ^3/uL Eosinophils # (Auto) 0.3 0-0.8 10 ^3/uL Basophils # (Auto) 0.1 0-0.2 10 ^3/uL Nucleated Red Blood Cells 0.0 % B-Type Natriuretic Peptide 1045.23 0-100 pg/mL Assessment Daughter care time 45 minutes Assessment and plan # ESRD on hemodialysis # Hyperkalemia resolved # Metabolic acidosis secondary to above # Acute chest pain likely musculoskeletal # Hypertensive emergency # Possible acute on chronic diastolic heart failure with preserved ejection fraction Plan: - Hemodialysis today - Renal diet - IV Lasix 40 mg daily - continue nifedipine ER 90 mg, losartan 50 mg, carvedilol 12.5 mg b.i.d., hydralazine 50 mg Q 8 hours for optimize control of blood pressure. - other management as per primary - strict I&O - monitor BMP Thank you so much for the opportunity to consult on your patient. team will follow the patient. In case of any questions or concerns please feel free to reach out. Plan discussed with Dr. Thompson . The patient and caregiver team agreed to the plan. Patient seen and examined by myself today with the medicine resident. I agree with the documented assessment and plan Total care time 45 minutes Plan discussed with: Patient, Other (RN) KRYSTLE RODRIGUEZ Dec 27, 2024 11:43 ARTEMIO THOMPSON MD Dec 27, 2024 12:18
--- NOTE | 2024-12-27 12:10 | ECG ---
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
[2024-12-27 12:11] VITALS: BP 165/90; PULSE 74; RESP 16; RESP 17; TEMP 98.5; O2SAT 96; O2SAT 97
[2024-12-27 12:30] VITALS: BP 172/109; PULSE 76; RESP 14; TEMP 98; O2SAT 96
[2024-12-27] MEDS: ONDANSETRON HCL 4 MG/2 ML VIAL IV PRN (13:05)
--- NOTE | 2024-12-27 15:06 | DVHPN2 ---
Subjective Patient continues to having intermittent chest Reviewed: Care Plan, H&P, Labs, Medications Changes from previous H/P or p: No Changes General: Per HPI Objective Vitals Vital Signs Date Time Temp Pulse Resp B/P (MAP) Pulse Ox O2 Delivery O2 Flow Rate FiO2 12/27/24 13:08 74 16 167/105 12/27/24 12:30 98.0 96 98.0 12/27/24 08:00 Room Air* 0 21 General Appearance: Alert, Oriented X3, Cooperative, mild distress HEENT: Atraumatic, PERRLA Lungs: Clear to auscultation, Normal air movement Cardiovascular: Normal S1, Normal S2 Abdomen: Normal bowel sounds, Soft, No tenderness Genitourinary: No Apparent Abnormalities Musculoskeletal: Normal sensory function, Normal motor function Skin: Dry, Intact Medications Current Medications Medications Dose Ordered Sig/Misty Route Start Time Stop Time Status Last Admin Dose Admin Apixaban 2.5 mg BID PO 12/26/24 22:00 12/27/24 10:14 2.5 MG Atorvastatin Calcium 40 mg HS PO 12/26/24 22:00 12/26/24 21:59 40 MG Carvedilol 12.5 mg Q12HR PO 12/26/24 22:00 12/27/24 10:13 12.5 MG Hydralazine HCl 50 mg Q8HR PO 12/26/24 22:00 12/27/24 13:06 50 MG Levetiracetam 1,000 mg BID PO 12/26/24 22:00 12/27/24 10:14 1,000 MG Losartan Potassium 50 mg DAILY PO 12/27/24 10:00 12/27/24 10:15 50 MG Nifedipine 90 mg DAILY PO 12/27/24 10:00 12/27/24 10:14 90 MG Hydralazine HCl 10 mg Q6HP PRN IV 12/26/24 19:30 12/26/24 20:09 10 MG Furosemide 40 mg DAILY IV 12/27/24 10:00 12/27/24 10:13 40 MG Diagnostic Test (Pha) 1 strip ACHS 12/26/24 22:00 12/27/24 11:51 1 STRIP Insulin Human Regular ACHS SC 12/26/24 22:00 Dextrose 50 ml UD PRN IV 12/26/24 19:30 Ondansetron HCl 4 mg Q4HP PRN IV 12/26/24 19:30 12/27/24 13:05 4 MG Acetaminophen 650 mg Q6HP PRN PO 12/26/24 19:30 12/27/24 03:14 650 MG Nitroglycerin 0.4 mg Q5MINP PRN SL 12/26/24 19:30 Morphine Sulfate 2 mg Q30M PRN IV 12/26/24 19:30 12/27/24 13:08 2 MG Laboratory Results Laboratory Tests 12/26/24 12:05 12/27/24 04:15 Chemistry Test 12/27/24 04:15 Calcium Level 8.2 mg/dL (8.7-10.4) L Labs and/or images reviewed: Labs reviewed by me, Image(s) reviewed by me Assessment/Plan Assessment/Plan Impression: -Chest pain due to pulmonary vascular congestion, hypertensive crisis -end-stage renal disease -schizophrenia -anemia of chronic disease -anxiety -primary hypertension, hypertensive crisis Plan: -ACS ruled out -social service consultation for outpatient referral to Psychiatry -continue home medications -nephrology consultation for HD, plans for tomorrow -reassess for discharge in a.m. Total time spent with patient discussing and formulating plan of care: 35 minutes. This medical document was created using an electronic medical record system with [email or web address] dictation system. Although this document has been carefully reviewed, there may still be some phonetic and typographical errors. These areas are purely typographical due to imperfections of the software programs, and do not reflect any compromise in the patient's medical care. Plan discussed with: Patient, Other (RN) Date of Service: Dec 27, 2024 Billing Provider: ANIBAL VINES NP Common Visit Codes: [id number] INP/OBS CARE(HIGH) ANIBAL VINES NP Dec 27, 2024 15:06
[2024-12-27] MEDS: ALPRAZolam 0.25 MG TAB PO ONE (18:17)
[2024-12-27 20:00] VITALS: PULSE 65; PULSE 72; RESP 16; O2SAT 95
[2024-12-27 21:00] VITALS: BP 131/65; PULSE 71; RESP 16; TEMP 98.1; O2SAT 95
[2024-12-28] VITALS (7 sets, daily range): BP systolic 118–156; BP diastolic 73–95; PULSE 72–85; RESP 16–20; TEMP 97–98.4; O2SAT 93–96
--- NOTE | 2024-12-28 04:32 | ECG ---
[facility] Test Date: 2024-12-28 Test Time: 04:31:02 Pat Name: ASHELY ZELAYA Department: Room: 0270T A Gender: M Chemist Food: AM : 1970 Requested By: LUIS MCLAUGHLIN Order Number: [id number] Reading MD: Andrew Fish Measurements Intervals [place] Rate: 74 P: 34 TN: 159 QRS: 41 QRSD: 86 T: 103 QT: 461 QTc: 512 Interpretive Statements Sinus rhythm Nonspecific T abnormalities, lateral leads Prolonged QT interval Electronically Signed On 12-31-2024 19:42:37 PDT by Andrew Fish Please click the below link to view image of tracing.
[2024-12-28] MEDS: LORazepam 2MG/ML-1ML VIAL ONE (04:49)
[2024-12-28] MEDS ORDERED: LORazepam 2MG/ML-1ML VIAL IV PRN (05:00)
[2024-12-28] MEDS: LORazepam 2MG/ML-1ML VIAL IV ONE (05:04)
[2024-12-28 05:26] LABS: Anion Gap 17 (5-15); Carbon Dioxide 20 mmol/L (20-31); Chloride 105 mmol/L (98-107); Potassium 4.9 mmol/L (3.5-5.1); Sodium 142 mmol/L (136-145)
[2024-12-28 05:33] LABS: BUN/Creatinine Ratio 6.1 (10.0-20.0); Blood Urea Nitrogen 52 mg/dL (9-23); Calcium 8.2 mg/dL (8.7-10.4); Glucose 136 mg/dL (74-106)
[2024-12-28] MEDS: HYDROcodone-ACET 7.5/325MG TAB PO ONE (05:59)
[2024-12-28] MEDS ORDERED: SODIUM CHL 0.9% 1000 ML BAG XX ONE (07:00)
--- NOTE | 2024-12-28 07:24 | RESUS ---
CODE ASSIST ASSESSSMENT Initial Information Code Assist Date: Dec 28, 2024 Code Assist Time: 04:43 Location of Arrest: [facility] Room [facility] A Provider Name MCLAUGHLIN Time Notified: 04:43 Time PMD returned call: 04:43 Situation Situation comment: SEIZURE ACTIVITIES 1). 0431 seizure began (tonic clonic) Initial V/S Taken: BP 135/87, HR 75, RR 18, 93% RA 0433 seizure cessation. Patient responded to name, pulled blanket up by self. 2). 0435 seizure began (tonic clonic) Initial V/S taken: BP 134/78, HR 76, RR 17, 97% on 2L NC Rapid Response alerted. Hospitalist notified. New orders received for 0.5mg IV Ativan ONCE given 0445 seizure cessation. V/S post seizure cessation: BP 136/88, HR 68, RR 17, T 98.2 via axilla, O2 98% 2LNC. Background Background: 54 year old male with PMHx of a-fib, CAD, CHF, CVA, DM, ESRD, HLD, HTN, MS, Seizure, schizophrenia, legal blindness Lt eye, presents to the ED with a chief complaint of chest pain onset today (12/26/24). Patient states he was asleep, woke up experiencing chest pain described as a pressure sensation radiating to jaw. He is also experiencing shortness of breath, nausea. He goes to dialysis Thursday, Thursday, Thursday at 17:00, has not gone today. Patient was discharged from [facility] 12/22/24, was admitted due to chest pain. Upon ED arrival, patient was hypertensive, BP 228/131. Denies fever, chills, vomiting, diarrhea, abdominal pain, dizziness, hematemesis, dysuria, sore throat, cough, congestion. Assessment Temperature (Fahrenheit): 98.3 Blood Pressure Systolic: 135 Blood Pressure Diastolic: 87 Respiratory Rate: 18 O2 Sat by Pulse Oximetry: 93 Assessment comment: PT POSTICTAL RESPONDS TO VERBAL STIMULI ON 2L NC VSS, ACCUCHECK 138 Recommendations/Interventions Medications and Responses : Medication Time: 04:50 Medication Comment: ATIVAN 0.5 IV Heart Rate: 74 EKG Rhythm: Sinus Rhythm Blood Pressure Systolic: 134 Blood Pressure Diastolic: 78 Respiratory Rate: 20 O2 Sat by Pulse Oximetry: 98 Procedures: Accu check, O2 Mask/NC Outcome Outcome: Problem Resolved Team Members Team Members LISSETTE SALES AGENT [employer]URANCE, YEYO RN HS, DELVIN RN, JOVI VETERINARY DENTIST, AGATHA VETERINARY DENTIST TRACE RN JOSE RT YEYO RANDOLPH Dec 28, 2024 07:23
--- NOTE | 2024-12-28 09:31 | DVHPN2 ---
Subjective Patient reporting generalized pain. Reviewed: Care Plan, H&P, Labs, Medications Changes from previous H/P or p: No Changes General: Per HPI Objective Vitals Vital Signs Date Time Temp Pulse Resp B/P (MAP) Pulse Ox O2 Delivery O2 Flow Rate FiO2 12/28/24 07:23 74 20 98 12/28/24 05:59 136/81 12/28/24 05:00 98.3 98.3 12/27/24 20:00 Room Air* 0 21 Intake/Output Intake and Output 12/28/24 07:00 Intake Total 720 ml Output Total 500 ml Balance 220 ml Intake Oral 720 ml Output Urine Total 500 ml Stool Total 0 ml # Voids 4 General Appearance: Alert, Oriented X3, Cooperative, mild distress HEENT: Atraumatic, PERRLA Lungs: Clear to auscultation, Normal air movement Cardiovascular: Normal S1, Normal S2 Abdomen: Normal bowel sounds, Soft, No tenderness Genitourinary: No Apparent Abnormalities Musculoskeletal: Normal sensory function, Normal motor function Skin: Dry, Intact Medications Current Medications Medications Dose Ordered Sig/Misty Route Start Time Stop Time Status Last Admin Dose Admin Apixaban 2.5 mg BID PO 12/26/24 22:00 12/27/24 10:14 2.5 MG Atorvastatin Calcium 40 mg HS PO 12/26/24 22:00 12/27/24 21:15 40 MG Carvedilol 12.5 mg Q12HR PO 12/26/24 22:00 12/27/24 21:13 12.5 MG Hydralazine HCl 50 mg Q8HR PO 12/26/24 22:00 12/28/24 05:59 50 MG Levetiracetam 1,000 mg BID PO 12/26/24 22:00 12/27/24 21:14 1,000 MG Losartan Potassium 50 mg DAILY PO 12/27/24 10:00 12/27/24 10:15 50 MG Nifedipine 90 mg DAILY PO 12/27/24 10:00 12/27/24 10:14 90 MG Hydralazine HCl 10 mg Q6HP PRN IV 12/26/24 19:30 12/26/24 20:09 10 MG Furosemide 40 mg DAILY IV 12/27/24 10:00 12/27/24 10:13 40 MG Diagnostic Test (Pha) 1 strip ACHS 12/26/24 22:00 12/27/24 21:15 1 STRIP Insulin Human Regular ACHS SC 12/26/24 22:00 12/28/24 06:37 2 UNITS Dextrose 50 ml UD PRN IV 12/26/24 19:30 Ondansetron HCl 4 mg Q4HP PRN IV 12/26/24 19:30 12/27/24 13:05 4 MG Acetaminophen 650 mg Q6HP PRN PO 12/26/24 19:30 12/27/24 03:14 650 MG Nitroglycerin 0.4 mg Q5MINP PRN SL 12/26/24 19:30 Morphine Sulfate 2 mg Q30M PRN IV 12/26/24 19:30 12/27/24 13:08 2 MG Lorazepam 1 mg Q5MINP PRN IV 12/28/24 05:00 Laboratory Results Laboratory Tests 12/26/24 12:05 12/28/24 04:50 Chemistry Test 12/28/24 04:50 Calcium Level 8.2 mg/dL (8.7-10.4) L Labs and/or images reviewed: Labs reviewed by me, Image(s) reviewed by me Assessment/Plan Assessment/Plan Impression: -Chest pain due to pulmonary vascular congestion, hypertensive crisis -end-stage renal disease -schizophrenia -anemia of chronic disease -anxiety -primary hypertension, hypertensive crisis -seizure disorder with breakthrough seizure Plan: -continue Keppra -lorazepam p.r.n. anxiety and seizure disorder -social service consultation for outpatient referral to Psychiatry -continue home medications -nephrology consultation with plans for HD today -reassess for discharge in a.m. if seizure free Total time spent with patient discussing and formulating plan of care: 35 minutes. This medical document was created using an electronic medical record system with [employer] dictation system. Although this document has been carefully reviewed, there may still be some phonetic and typographical errors. These areas are purely typographical due to imperfections of the software programs, and do not reflect any compromise in the patient's medical care. Plan discussed with: Patient, Other (RN) My Orders Orders - ANIBAL VINES CDL SERVICE TECHNICIAN Procedure Category Date Status Time * [employer] CONS 12/27/24 Transmitted Consult Mrsa Screen CHANDNI 12/27/24 In Process 16:28 Lorazepam 2mg/Ml Inj PHA 12/28/24 Verified (Ativan Inj) 09:30 Hydrocodone-Acet PHA 12/28/24 Verified 7.5/325mg Tab ([place] 09:30 Date of Service: Dec 28, 2024 Billing Provider: ANIBAL VINES NP Common Visit Codes: [id number] INP/OBS CARE(HIGH) ANIBAL VINES NP Dec 28, 2024 09:31
[2024-12-28] MEDS: LORazepam 2MG/ML-1ML VIAL IV PRN (10:38)
--- NOTE | 2024-12-28 11:53 | DVHPN2 ---
Progress Note Date Seen: Dec 28, 2024 Resident Creating Document: KRYSTLE RODRIGUEZ RESIDENT Medical Necessity Reason Pt with a Central, PICC or Fol: No Subjective Review of Systems Patient was seen and examined on the bedside. He is alert oriented x3. Patient had 2 episodes of tonic- clonic seizure yesterday, code assist was called and was given IV Ativan which resolved the seizure episodes. Other Systems: Patient seen and examined by myself today on rounds with the medicine resident, I agree with the assessment and plan Patient examined hemodialysis, blood pressure stable Objective vital signs Vital Sign Date Time Temp Pulse Resp B/P (MAP) Pulse Ox O2 Delivery O2 Flow Rate FiO2 12/28/24 09:00 97.3 76 16 118/73 (88) 94 97.3 12/28/24 08:00 Room Air* 0 21 Total Intake and Output 12/27/24 12/27/24 12/28/24 15:00 23:00 07:00 Intake Total 240 ml 480 ml Output Total 0 ml 500 ml Balance 240 ml -20 ml medications Current Medications Medications Dose Ordered Sig/Misty Route Start Time Stop Time Status Last Admin Dose Admin Apixaban 2.5 mg BID PO 12/26/24 22:00 12/27/24 10:14 2.5 MG Atorvastatin Calcium 40 mg HS PO 12/26/24 22:00 12/27/24 21:15 40 MG Carvedilol 12.5 mg Q12HR PO 12/26/24 22:00 12/27/24 21:13 12.5 MG Hydralazine HCl 50 mg Q8HR PO 12/26/24 22:00 12/28/24 05:59 50 MG Levetiracetam 1,000 mg BID PO 12/26/24 22:00 12/28/24 10:18 1,000 MG Losartan Potassium 50 mg DAILY PO 12/27/24 10:00 12/27/24 10:15 50 MG Nifedipine 90 mg DAILY PO 12/27/24 10:00 12/27/24 10:14 90 MG Hydralazine HCl 10 mg Q6HP PRN IV 12/26/24 19:30 12/26/24 20:09 10 MG Furosemide 40 mg DAILY IV 12/27/24 10:00 12/27/24 10:13 40 MG Diagnostic Test (Pha) 1 strip ACHS 12/26/24 22:00 10/8/25 10:33 1 STRIP Insulin Human Regular ACHS SC 12/26/24 22:00 12/28/24 10:36 4 UNITS Dextrose 50 ml UD PRN IV 12/26/24 19:30 Ondansetron HCl 4 mg Q4HP PRN IV 12/26/24 19:30 12/27/24 13:05 4 MG Acetaminophen 650 mg Q6HP PRN PO 12/26/24 19:30 12/27/24 03:14 650 MG Nitroglycerin 0.4 mg Q5MINP PRN SL 12/26/24 19:30 Morphine Sulfate 2 mg Q30M PRN IV 12/26/24 19:30 12/27/24 13:08 2 MG Lorazepam 1 mg Q5MINP PRN IV 12/28/24 05:00 Lorazepam 0.5 mg Q8HP PRN IV 12/28/24 09:30 12/28/24 10:38 0.5 MG Acetaminophen/ Hydrocodone Bitart 1 tab Q4HP PRN PO 12/28/24 09:30 Examination Physical examination: General Appearance: Alert, Oriented X3, Cooperative, No acute distress HEENT: Atraumatic, PERRLA, EOMI, Mucous membrane moist/pink Respiratory: Dialysis catheter in right IJ in chest, Clear to auscultation, Normal air movement Cardiovascular: Regular rate, Normal S1, Normal S2, No murmurs, no chest wall tenderness Abdominal: Normal bowel sounds, Soft, No tenderness, No hepatospenomegaly, No masses Extremities: No clubbing, No cyanosis, No edema, Normal pulses, No tenderness/swelling Skin: No rashes, No breakdown, No significant lesion Neuro: Normal speech, Strength at 5/5 X4 ext, Normal tone, Sensation intact Psych/Mental Status: Mental status NL, Mood NL laboratory and microbiology Laboratory Tests 12/28/24 04:50 12/26/24 12:05 Test 12/28/24 04:50 Range/Units Serum Glucose 136 H 74-106 mg/dL Labs and/or images reviewed: Labs reviewed by me, Image(s) reviewed by me Problem List/Assessment/Plan Problem List/Assessment/Plan Assessment and plan # ESRD on hemodialysis # Metabolic acidosis secondary to above # Acute chest pain likely musculoskeletal # Hypertensive emergency # Possible acute on chronic diastolic heart failure with preserved ejection fraction # Seizure disorder with breakthrough seizure # Schizophrenia Plan: - Hemodialysis today - Renal diet - IV Lasix 40 mg daily - continue nifedipine ER 90 mg, losartan 50 mg, carvedilol 12.5 mg b.i.d., hydralazine 50 mg Q 8 hours for optimize control of blood pressure. - continue Keppra 1000 mg p.o. b.i.d. and IV Ativan p.r.n. for seizure - other management as per primary - strict I&O - monitor BMP Total care time 25 minutes Thank you so much for the opportunity to consult on your patient. team will follow the patient. In case of any questions or concerns please feel free to reach out. Plan discussed with Dr. Dennison . The patient and caregiver team agreed to the plan. Plan discussed with: Patient, Other (RN) My Orders My Orders Orders - KRYSTLE RODRIGUEZ Procedure Category Date Status Time Hepatitis B Surface LAB 12/28/24 In Process Antigen 10:54 Vitamin D, 25-Hydroxy LAB 12/28/24 In Process 10:54 Magnesium LAB 12/28/24 In Process 10:54 Phosphorus LAB 12/28/24 In Process 10:56 KRYSTLE RODRIGUEZ Dec 28, 2024 11:53 ARTEMIO DENNISON MD Dec 28, 2024 13:55
[2024-12-28] MEDS: HYDROcodone-ACET 7.5/325MG TAB PO PRN (14:23)
[2024-12-28 14:54] LABS: Magnesium 1.8 mg/dL (1.6-2.6)
[2024-12-28] MEDS: CALCIUM CARB 500 MG CHEW TAB PO PRN (20:51)
[2024-12-29] VITALS (7 sets, daily range): BP systolic 147–187; BP diastolic 86–112; PULSE 74–96; RESP 18–20; TEMP 97–98; O2SAT 94–98
[2024-12-29 07:17] LABS: Sodium 143 mmol/L (136-145)
[2024-12-29 07:18] LABS: Anion Gap 17 (5-15)
[2024-12-29 07:23] LABS: BUN/Creatinine Ratio 8.3 (10.0-20.0); Glucose 81 mg/dL (74-106)
[2024-12-29 07:40] LABS: Blood Urea Nitrogen 79 mg/dL (9-23); Calcium 7.7 mg/dL (8.7-10.4); Carbon Dioxide 18 mmol/L (20-31); Chloride 108 mmol/L (98-107)
[2024-12-29 07:47] LABS: Potassium 6.2 mmol/L (3.5-5.1)
[2024-12-29] MEDS: SODIUM BICARB 8.4% 50Meq/50ml SYR INJ IV ONE (08:00)
[2024-12-29] MEDS: InsuLIN REG 1unit/0.01ml Soln (100units/ml) IV ONE (08:00)
[2024-12-29] MEDS: CALCIUM GLUC 1,000mg/50ml-NS 50 ML IV ONE (08:00)
[2024-12-29] MEDS ORDERED: ALBUTEROL SULF 2.5 MG/0.5ML(0.5%) NEB SOLN ONE (08:21)
[2024-12-29] MEDS: ALBUTEROL SULF 2.5 MG/0.5ML(0.5%) NEB SOLN NEB ONE (08:24)
[2024-12-29] MEDS: DEXTROSE (50%) 50ML SYRG IV ONE (08:44)
[2024-12-29] MEDS: SODIUM ZIRCONIUM CYCL 10 GM PAK PO ONE (08:44)
--- NOTE | 2024-12-29 09:44 | DVHDS2 ---
Discharge Summary Date of Admission Dec 26, 2024 at 19:17 Date of Discharge: Dec 29, 2024 Admitting Diagnosis Chest pain secondary to fluid overload Labs/Diagnostic Data: Laboratory Results Test 12/29/24 08:45 12/29/24 05:14 12/28/24 14:00 12/28/24 11:39 POC Glucose 104 mg/dl (70-106) Sodium Level 143 mmol/L (136-145) Potassium Level 6.2 mmol/L (3.5-5.1) Chloride Level 108 mmol/L (98-107) Carbon Dioxide Level 18 mmol/L (20-31) Anion Gap 17 (5-15) Blood Urea Nitrogen 79 mg/dL (9-23) Creatinine 9.50 mg/dL (0.700-1.30) Glomerular Filtration Rate Calc 6 mL/min (>90) BUN/Creatinine Ratio 8.3 (10.0-20.0) Serum Glucose 81 mg/dL (74-106) Calcium Level 7.7 mg/dL (8.7-10.4) Phosphorus Level 10.0 mg/dL (2.4-5.1) Magnesium Level 1.8 mg/dL (1.6-2.6) Parathyroid Hormone (Intact) 344.0 pg/mL (18.4-80.1) Hepatitis B Surface Antigen Negative (Negative) Test 12/26/24 15:19 12/26/24 12:05 Troponin I High Sensitivity 22 ng/L (</=54) White Blood Count 8.9 10^3/uL (4.4-10.8) Red Blood Count 4.19 10^6/uL (4.5-5.90) Hemoglobin 12.9 g/dL (13.5-17.5) Hematocrit 39.1 % (41.0-53.0) Mean Corpuscular Volume 93.3 fL (80.0-100.0) Mean Corpuscular Hemoglobin 30.9 pg (28.0-32.0) Mean Corpuscular Hemoglobin Concent 33.1 g/dL (32.0-36.0) Red Cell Distribution Width 14.7 % (11.8-14.3) Platelet Count 264 10^3/uL (140-450) Mean Platelet Volume 6.9 fL (6.9-10.8) Neutrophils (%) (Auto) 63.1 % (37.0-80.0) Lymphocytes (%) (Auto) 24.2 % (10.0-50.0) Monocytes (%) (Auto) 8.6 % (0.0-12.0) Eosinophils (%) (Auto) 3.4 % (0.0-7.0) Basophils (%) (Auto) 0.7 % (0.0-2.0) Neutrophils # (Auto) 5.6 10 ^3/uL (1.6-8.6) Lymphocytes # (Auto) 2.2 10 ^3/uL (0.4-5.4) Monocytes # (Auto) 0.8 10 ^3/uL (0-1.3) Eosinophils # (Auto) 0.3 10 ^3/uL (0-0.8) Basophils # (Auto) 0.1 10 ^3/uL (0-0.2) Nucleated Red Blood Cells 0.0 % B-Type Natriuretic Peptide 1045.23 pg/mL (0-100) Other Laboratory Tests 12/29/24 05:14 12/26/24 12:05 Brief Hx & Hospital Course: History of Present Illness 54-year-old male presents for evaluation of chest pain. Patient endorses a one day history of left-sided pressure-like chest pain that radiates to his neck he associates having shortness for breath. Due to the symptoms patient missed his dialysis session today. Denies cough or fever. No other acute complaints reported. Course of hospitalization: Patient was treated with hyperkalemia protocol while in the hospital. Patient refused hemodialysis yesterday evening, scheduled for hemodialysis today. Patient has been refusing medical treatment from nursing staff on multiple occasions. Patient's IV nonfunctioning today, refusing to have a new one placed. Patient did have a breakthrough seizure yesterday morning, at this time seizure-free. Patient will be discharged home after receiving hemodialysis today. Patient will have a renewed prescription for Keppra 500 mg p.o. b.i.d.. He is instructed to follow up with his PCP, established hemodialysis chair time, and neurologist once being discharged home. Physical examination General: Alert and Oriented x3. No acute distress. Well-nourished. Eyes: EOMI. Anicteric. HENT: Moist mucous membranes. Lungs: Clear to auscultation bilaterally. No accessory muscle use. Cardiovascular: Regular rate and rhythm. No murmur. No JVD. Abdomen: Soft, non-tender and non-distended. No palpable masses. Extremities: No edema. Non-tender. Skin: No rashes or lesions. Warm. Neurologic: No focal neurological deficits. CN II-XII grossly intact, but not individually tested. Psychiatric: Cooperative. Appropriate mood and affect. Total time spent with patient discussing and formulating plan of care: 35 minutes. This medical document was created using an electronic medical record system with [employer] dictation system. Although this document has been carefully reviewed, there may still be some phonetic and typographical errors. These areas are purely typographical due to imperfections of the software programs, and do not reflect any compromise in the patient's medical care. Consults/Reason for consult Nephrology: Hemodialysis Condition at Discharge: Poor Final Diagnosis/Problems List Chest pain secondary to hypertensive crisis and pulmonary vascular congestion from missing hemodialysis -Chest pain due to pulmonary vascular congestion, hypertensive crisis -end-stage renal disease -schizophrenia -anemia of chronic disease -anxiety -primary hypertension, hypertensive crisis -seizure disorder with breakthrough seizure Discharge Disposition: Home Discharge Instruct/Medications Diet: Cardiac 2g Na,low cholest, Renal Activity: No Restrictions, As Tolerated Follow Up/Referral: Follow up with established hemodialysis chair time Follow up with the PCP in 1-2 weeks Medications: Continue all previous home medications Scheduled Apixaban Base (Eliquis), 2.5 MG PO BID Atorvastatin Calcium (Lipitor), 40 MG PO DAILY Brimonidine Tartrate (Alphagan P), 0.1 % OP TID Bumetanide (Bumetanide), 1 TAB PO DAILY Carvedilol (Coreg), 12.5 MG PO Q12HR Dorzolamide HCl-Timolol Maleat (Cosopt 2-0.5 %), 1 KEERTHI OP BID Hydralazine Hcl (Hydralazine Hcl), 1 TAB PO TID Levetiracetam (Levetiracetam), 1 TAB PO BID Losartan Potassium (Losartan Potassium), 50 MG PO DAILY Nifedipine (Nifedipine Er), 90 MG PO DAILY Olopatadine HCl (Olopatadine Hydrochloride), 1 DROP LEFTEYE BID, (Reported) Scheduled PRN Hydrocodone-Acetaminophen (Hydrocodone Bitartrate/AC 5-325 mg), 1-2 TAB PO Q6HP PRN Miscellaneous Medications Insulin Lispro (Insulin Lispro Thai Kwi), (Reported) Quetiapine Fumerate (Quetiapine Fumarate), 1 TAB PO, (Reported) Discontinued Medications Hydralazine Hcl (Hydralazine Hcl), 25 MG PO TID 36 Discharge Statement: "Patient was advised to return to the ER or call 911 if any headaches, dizziness, shortness of breath, chest pain, abdominal pain, bleeding, fevers, or worsening of medical condition. Patient was counseled about treatment plan, medications, possible side effects, patientverbalized understanding. All questions were answered to the best of my ability. This discharge took greater then 30 minutes in planning, reviewing documentation, counseling the patient, and discussing with other team members." ASSESSMENT ASSESSMENT Assessment Chest pain secondary to hypertensive crisis and pulmonary vascular congestion from missing hemodialysis Date of Service: Dec 29, 2024 Billing Provider: ANIBAL VINES NP Common Visit Codes: [id number] DISCH DAY >30min ANIBAL VINES NP Dec 29, 2024 09:44
[2024-12-29] MEDS ORDERED: KEP500T PO (09:45)
[2024-12-29] MEDS: PANTOPRAZOLE 40 MG/10 ML VIAL INJ IV SCH (10:00)
--- NOTE | 2024-12-29 10:19 | DVHPN2 ---
Progress Note Date Seen: Dec 29, 2024 Resident Creating Document: KRYSTLE RODRIGUEZ RESIDENT Medical Necessity Reason Pt with a Central, PICC or Fol: No Subjective Review of Systems Patient was seen and examined on the bedside. He is alert oriented x3. Scheduled for hemodialysis today Other Systems: Patient seen and examined by myself today in follow-up with the medicine resident, I agree with her assessment and plan Patient examined hemodialysis, blood pressure stable Objective vital signs Vital Sign Date Time Temp Pulse Resp B/P (MAP) Pulse Ox O2 Delivery O2 Flow Rate FiO2 12/29/24 09:00 98.0 80 18 149/88 (108) 94 98.0 12/28/24 20:00 Room Air* 0 21 Total Intake and Output 12/28/24 12/28/24 12/29/24 15:00 23:00 07:00 Intake Total 300 ml 120 ml Output Total 350 ml 250 ml Balance -50 ml -130 ml medications Current Medications Medications Dose Ordered Sig/Misty Route Start Time Stop Time Status Last Admin Dose Admin Apixaban 2.5 mg BID PO 12/26/24 22:00 12/27/24 10:14 2.5 MG Atorvastatin Calcium 40 mg HS PO 12/26/24 22:00 12/27/24 21:15 40 MG Carvedilol 12.5 mg Q12HR PO 12/26/24 22:00 12/28/24 21:46 12.5 MG Hydralazine HCl 50 mg Q8HR PO 12/26/24 22:00 12/29/24 05:48 50 MG Levetiracetam 1,000 mg BID PO 12/26/24 22:00 12/29/24 09:01 1,000 MG Losartan Potassium 50 mg DAILY PO 12/27/24 10:00 12/27/24 10:15 50 MG Nifedipine 90 mg DAILY PO 12/27/24 10:00 12/27/24 10:14 90 MG Hydralazine HCl 10 mg Q6HP PRN IV 12/26/24 19:30 12/26/24 20:09 10 MG Furosemide 40 mg DAILY IV 12/27/24 10:00 12/27/24 10:13 40 MG Diagnostic Test (Pha) 1 strip ACHS 12/26/24 22:00 12/29/24 07:11 1 STRIP Insulin Human Regular ACHS SC 12/26/24 22:00 12/28/24 10:36 4 UNITS Dextrose 50 ml UD PRN IV 12/26/24 19:30 Ondansetron HCl 4 mg Q4HP PRN IV 12/26/24 19:30 12/27/24 13:05 4 MG Acetaminophen 650 mg Q6HP PRN PO 12/26/24 19:30 12/27/24 03:14 650 MG Nitroglycerin 0.4 mg Q5MINP PRN SL 12/26/24 19:30 Morphine Sulfate 2 mg Q30M PRN IV 12/26/24 19:30 12/27/24 13:08 2 MG Lorazepam 1 mg Q5MINP PRN IV 12/28/24 05:00 Lorazepam 0.5 mg Q8HP PRN IV 12/28/24 09:30 12/28/24 18:40 0.5 MG Acetaminophen/ Hydrocodone Bitart 1 tab Q4HP PRN PO 12/28/24 09:30 12/29/24 05:49 1 TAB Calcium Acetate 667 mg TIDWMEALS PO 12/29/24 12:00 Pantoprazole Sodium 40 mg DAILY IV 12/29/24 10:00 Examination Physical examination: General Appearance: Alert, Oriented X3, Cooperative, No acute distress HEENT: Atraumatic, PERRLA, EOMI, Mucous membrane moist/pink Respiratory: Dialysis catheter in right IJ in chest, Clear to auscultation, Normal air movement Cardiovascular: Regular rate, Normal S1, Normal S2, No murmurs, no chest wall tenderness Abdominal: Normal bowel sounds, Soft, No tenderness, No hepatospenomegaly, No masses Extremities: No clubbing, No cyanosis, No edema, Normal pulses, No tenderness/swelling Skin: No rashes, No breakdown, No significant lesion Neuro: Normal speech, Strength at 5/5 X4 ext, Normal tone, Sensation intact Psych/Mental Status: Mental status NL, Mood NL Examination: LUNGS:Normal, CVS:Normal, MSK:Normal laboratory and microbiology Laboratory Tests 12/29/24 05:14 12/26/24 12:05 Test 12/29/24 05:14 Range/Units Serum Glucose 81 74-106 mg/dL Microbiology Date/Time Source Procedure Growth Status 12/27/24 16:30 Nose MRSA Screen - Final Complete Labs and/or images reviewed: Labs reviewed by me, Image(s) reviewed by me Problem List/Assessment/Plan Problem List/Assessment/Plan Assessment and plan # ESRD on hemodialysis # Metabolic acidosis secondary to above # Hyperkalemia # Acute chest pain likely musculoskeletal # Hypertensive emergency # Possible acute on chronic diastolic heart failure with preserved ejection fraction # Seizure disorder with breakthrough seizure # Schizophrenia Plan: - continue with UF 2 L as tolerated - Renal diet - Hyperkalemia protocol management - IV Lasix 40 mg daily - Lokelma 10 g p.o. q.8 hours x3 doses - continue nifedipine ER 90 mg, losartan 50 mg, carvedilol 12.5 mg b.i.d., hydralazine 50 mg Q 8 hours for optimize control of blood pressure. - continue Keppra 1000 mg p.o. b.i.d. and IV Ativan p.r.n. for seizure - other management as per primary - strict I&O - renal diet with low potassium - monitor BMP Total Care time 25 minutes Thank you so much for the opportunity to consult on your patient. team will follow the patient. In case of any questions or concerns please feel free to reach out. Plan discussed with Dr. Dennison . The patient and caregiver team agreed to the plan. Plan discussed with: Patient, Other (RN) My Orders My Orders Orders - KRYSTLE RODRIGUEZ Procedure Category Date Status Time Vitamin D, 25-Hydroxy LAB 12/28/24 In Process 10:54 Calcium Acetate PHA 12/29/24 In Process Capsule (Phoslo 12:00 KRYSTLE RODRIGUEZ Dec 29, 2024 10:19 ARTEMIO DENNISON MD Dec 29, 2024 14:19
[2024-12-29] MEDS: CALCIUM ACETATE 667 MG CAP PO SCH ×2 (12:00→17:54)
[2024-12-29] MEDS ORDERED: LORazepam 2MG/ML-1ML VIAL ONE (13:44)
[2024-12-29] MEDS: LORazepam 2MG/ML-1ML VIAL IV ONE (14:16)
[2024-12-29 16:18] LABS: Chloride 106 mmol/L (98-107); Potassium 4.2 mmol/L (3.5-5.1); Sodium 143 mmol/L (136-145)
[2024-12-29 16:19] LABS: Anion Gap 15 (5-15); Carbon Dioxide 22 mmol/L (20-31)
[2024-12-29 16:24] LABS: BUN/Creatinine Ratio 7.5 (10.0-20.0); Glucose 95 mg/dL (74-106)
[2024-12-29 16:25] LABS: Blood Urea Nitrogen 53 mg/dL (9-23); Calcium 7.7 mg/dL (8.7-10.4)
[2024-12-29] MEDS: SODIUM ZIRCONIUM CYCL 10 GM PAK PO SCH (17:55)
[2024-12-30 01:00] VITALS: BP 170/104; PULSE 94; RESP 18; TEMP 98; O2SAT 98
[2024-12-30 07:13] LABS: Anion Gap 14 (5-15); Carbon Dioxide 22 mmol/L (20-31); Chloride 105 mmol/L (98-107); Potassium 4.4 mmol/L (3.5-5.1); Sodium 141 mmol/L (136-145)
[2024-12-30 07:18] LABS: BUN/Creatinine Ratio 4.8 (10.0-20.0); Glucose 99 mg/dL (74-106)
[2024-12-30 07:21] LABS: Blood Urea Nitrogen 37 mg/dL (9-23); Calcium 8.6 mg/dL (8.7-10.4)
[2024-12-30 08:00] VITALS: PULSE 82; O2SAT 96
[2024-12-30 08:54] VITALS: BP 220/116; PULSE 82; RESP 18; TEMP 98; O2SAT 96
[2024-12-30] MEDS ORDERED: LABETALOL HCL 20 MG/4 ML VL IV PRN (09:30)
[2024-12-30] MEDS: LORazepam 0.5 MG TAB PO PRN (09:45)
--- NOTE | 2024-12-30 10:04 | DVHPN2 ---
Subjective Patient reporting generalized pain. Reviewed: Care Plan, H&P, Labs, Medications Changes from previous H/P or p: Changes General: Per HPI Objective Vitals Vital Signs Date Time Temp Pulse Resp B/P (MAP) Pulse Ox O2 Delivery O2 Flow Rate FiO2 12/30/24 09:40 220/124 12/30/24 09:40 82 12/30/24 08:54 98.0 18 96 98.0 12/29/24 20:00 Room Air* 0 21 Intake/Output Intake and Output 12/30/24 07:00 Intake Total 1750 ml Output Total 900 ml Balance 850 ml Intake Oral 1750 ml Output Urine Total 900 ml # Voids 2 General Appearance: Alert, Oriented X3, Cooperative, mild distress HEENT: Atraumatic, PERRLA Lungs: Clear to auscultation, Normal air movement Cardiovascular: Normal S1, Normal S2 Abdomen: Normal bowel sounds, Soft, No tenderness Genitourinary: No Apparent Abnormalities Musculoskeletal: Normal sensory function, Normal motor function Skin: Dry, Intact Medications Current Medications Medications Dose Ordered Sig/Misty Route Start Time Stop Time Status Last Admin Dose Admin Apixaban 2.5 mg BID PO 12/26/24 22:00 12/30/24 09:40 2.5 MG Atorvastatin Calcium 40 mg HS PO 12/26/24 22:00 12/29/24 20:53 40 MG Carvedilol 12.5 mg Q12HR PO 12/26/24 22:00 12/30/24 09:40 12.5 MG Hydralazine HCl 50 mg Q8HR PO 12/26/24 22:00 12/30/24 05:39 50 MG Levetiracetam 1,000 mg BID PO 12/26/24 22:00 12/30/24 09:39 1,000 MG Losartan Potassium 50 mg DAILY PO 12/27/24 10:00 12/30/24 09:39 50 MG Nifedipine 90 mg DAILY PO 12/27/24 10:00 12/30/24 09:38 90 MG Hydralazine HCl 10 mg Q6HP PRN IV 12/26/24 19:30 12/29/24 17:53 10 MG Furosemide 40 mg DAILY IV 12/27/24 10:00 12/30/24 09:40 40 MG Diagnostic Test (Pha) 1 strip ACHS 12/26/24 22:00 12/30/24 06:19 1 STRIP Insulin Human Regular ACHS SC 12/26/24 22:00 12/29/24 11:52 2 UNITS Dextrose 50 ml UD PRN IV 12/26/24 19:30 Ondansetron HCl 4 mg Q4HP PRN IV 12/26/24 19:30 12/30/24 08:45 4 MG Acetaminophen 650 mg Q6HP PRN PO 12/26/24 19:30 12/27/24 03:14 650 MG Nitroglycerin 0.4 mg Q5MINP PRN SL 12/26/24 19:30 Morphine Sulfate 2 mg Q30M PRN IV 12/26/24 19:30 12/27/24 13:08 2 MG Lorazepam 1 mg Q5MINP PRN IV 12/28/24 05:00 Lorazepam 0.5 mg Q8HP PRN IV 12/28/24 09:30 Hold 12/28/24 18:40 0.5 MG Acetaminophen/ Hydrocodone Bitart 1 tab Q4HP PRN PO 12/28/24 09:30 12/30/24 05:40 1 TAB Pantoprazole Sodium 40 mg DAILY IV 12/29/24 10:00 12/30/24 09:40 40 MG Lorazepam 0.5 mg Q8HP PRN PO 12/29/24 13:30 12/30/24 09:45 0.5 MG Calcium Acetate 2,001 mg TIDWMEALS PO 12/29/24 18:00 12/30/24 09:39 2,001 MG Labetalol HCl 10 mg Q2HPRN PRN IV 12/30/24 09:30 Laboratory Results Laboratory Tests 12/26/24 12:05 12/30/24 05:08 Chemistry Test 12/29/24 15:40 12/30/24 05:08 Calcium Level 7.7 mg/dL (8.7-10.4) L 8.6 mg/dL (8.7-10.4) L Microbiology Microbiology Date/Time Source Procedure Growth Status 12/27/24 16:30 Nose MRSA Screen - Final Complete Labs and/or images reviewed: Labs reviewed by me, Image(s) reviewed by me Assessment/Plan Assessment/Plan Impression: -Chest pain due to pulmonary vascular congestion, hypertensive crisis -end-stage renal disease -schizophrenia -anemia of chronic disease -anxiety -primary hypertension, hypertensive crisis -seizure disorder with breakthrough seizure -hypertensive crisis Plan: Events: Patient had questionable seizure activity, probable pseudo seizure during hemodialysis. Patient did not receive full treatment yesterday. Patient now in a hypertensive crisis today. Held for an additional night given patient's blood pressure in the for probable repeat hemodialysis prior to discharge. -labetalol 10 mg IV push q.12 hours for systolic blood pressure greater than 160. -continue Keppra -lorazepam p.r.n. anxiety and seizure disorder -social service consultation for outpatient referral to Psychiatry -continue home medications -nephrology consultation with plans for HD today -reassess for discharge in a.m. if seizure free Total time spent with patient discussing and formulating plan of care: 35 minutes. This medical document was created using an electronic medical record system with [employer] dictation system. Although this document has been carefully reviewed, there may still be some phonetic and typographical errors. These areas are purely typographical due to imperfections of the software programs, and do not reflect any compromise in the patient's medical care. Plan discussed with: Patient, Other My Orders Orders - ANIBAL VINES NP Procedure Category Date Status Time Lorazepam Tablet PHA 12/29/24 In Process (Ativan Tablet) 13:30 Labetalol Hcl PHA 12/30/24 In Process (Labetalol Hcl) 09:30 Basic Metabolic Panel LAB 12/31/24 Verified 04:00 Date of Service: Dec 30, 2024 Billing Provider: ANIBAL VINES NP Common Visit Codes: [id number] INP/OBS CARE(HIGH) ANIBAL VINES NP Dec 30, 2024 10:04
--- NOTE | 2024-12-30 11:13 | DVHPN2 ---
Progress Note Date Seen: Dec 30, 2024 Medical Necessity Reason Pt with a Central, PICC or Fol: No Subjective Patient reports: No new complaints Other Systems: Patient seen and examined by myself today in follow-up Objective vital signs Vital Sign Date Time Temp Pulse Resp B/P (MAP) Pulse Ox O2 Delivery O2 Flow Rate FiO2 12/30/24 09:40 220/124 12/30/24 09:40 82 12/30/24 08:54 98.0 18 96 98.0 12/29/24 20:00 Room Air* 0 21 Total Intake and Output 12/29/24 12/29/24 12/30/24 15:00 23:00 07:00 Intake Total 1650 ml 100 ml Output Total 900 ml Balance 750 ml 100 ml medications Current Medications Medications Dose Ordered Sig/Misty Route Start Time Stop Time Status Last Admin Dose Admin Apixaban 2.5 mg BID PO 12/26/24 22:00 12/30/24 09:40 2.5 MG Atorvastatin Calcium 40 mg HS PO 12/26/24 22:00 12/29/24 20:53 40 MG Carvedilol 12.5 mg Q12HR PO 12/26/24 22:00 12/30/24 09:40 12.5 MG Hydralazine HCl 50 mg Q8HR PO 12/26/24 22:00 12/30/24 05:39 50 MG Levetiracetam 1,000 mg BID PO 12/26/24 22:00 12/30/24 09:39 1,000 MG Losartan Potassium 50 mg DAILY PO 12/27/24 10:00 12/30/24 09:39 50 MG Nifedipine 90 mg DAILY PO 12/27/24 10:00 12/30/24 09:38 90 MG Hydralazine HCl 10 mg Q6HP PRN IV 12/26/24 19:30 12/29/24 17:53 10 MG Furosemide 40 mg DAILY IV 12/27/24 10:00 12/30/24 09:40 40 MG Diagnostic Test (Pha) 1 strip ACHS 12/26/24 22:00 12/30/24 06:19 1 STRIP Insulin Human Regular ACHS SC 12/26/24 22:00 12/29/24 11:52 2 UNITS Dextrose 50 ml UD PRN IV 12/26/24 19:30 Ondansetron HCl 4 mg Q4HP PRN IV 12/26/24 19:30 12/30/24 08:45 4 MG Acetaminophen 650 mg Q6HP PRN PO 12/26/24 19:30 12/27/24 03:14 650 MG Nitroglycerin 0.4 mg Q5MINP PRN SL 12/26/24 19:30 Morphine Sulfate 2 mg Q30M PRN IV 12/26/24 19:30 12/27/24 13:08 2 MG Lorazepam 1 mg Q5MINP PRN IV 12/28/24 05:00 Lorazepam 0.5 mg Q8HP PRN IV 12/28/24 09:30 Hold 12/28/24 18:40 0.5 MG Acetaminophen/ Hydrocodone Bitart 1 tab Q4HP PRN PO 12/28/24 09:30 12/30/24 05:40 1 TAB Pantoprazole Sodium 40 mg DAILY IV 12/29/24 10:00 12/30/24 09:40 40 MG Lorazepam 0.5 mg Q8HP PRN PO 12/29/24 13:30 12/30/24 09:45 0.5 MG Calcium Acetate 2,001 mg TIDWMEALS PO 12/29/24 18:00 12/30/24 09:39 2,001 MG Labetalol HCl 10 mg Q2HPRN PRN IV 12/30/24 09:30 Examination: LUNGS:Normal, CVS:Normal, MSK:Normal laboratory and microbiology Laboratory Tests 12/30/24 05:08 12/26/24 12:05 Test 12/30/24 05:08 Range/Units Serum Glucose 99 74-106 mg/dL Microbiology Date/Time Source Procedure Growth Status 12/27/24 16:30 Nose MRSA Screen - Final Complete Problem List/Assessment/Plan Problem List/Assessment/Plan ESRD on hemodialysis Musculoskeletal chest pain Hyperkalemia, resolved Hypertensive emergency acute on chronic diastolic heart failure with preserved ejection fraction Seizure disorder with breakthrough seizure Schizophrenia Anemia of chronic kidney disease, well compensated off OSMAN Recommendations Hemodialysis tomorrow Renal diet Fluid restrictions Blood pressure control Streamline blood pressure medications Increase hydralazine to 100 mg p.o. t.i.d. Increase carvedilol 25 mg p.o. b.i.d. Change nifedipine 90 mg XR p.o. q.p.m. Increase losartan to 100 mg p.o. q.day We will continue to follow up Total Care time 25 minutes Plan discussed with: Patient My Orders My Orders Orders - ARTEMIO DENNISON MD Procedure Category Date Status Time Calcium Acetate PHA 12/29/24 In Process Capsule (Phoslo 18:00 Renal Specific DIET 12/29/24 Transmitted Diet(Renal) Dinner ARTEMIO DENNISON MD Dec 30, 2024 11:13
[2024-12-30 13:00] VITALS: BP 175/105; PULSE 82; RESP 20; TEMP 98; O2SAT 96
[2024-12-30 16:52] VITALS: BP 147/88; PULSE 76; RESP 20; TEMP 98.8; O2SAT 97
[2024-12-30 21:00] VITALS: BP 115/57; PULSE 78; RESP 19; TEMP 98.1; O2SAT 95
[2024-12-30] MEDS: CARVEDILOL 12.5 MG TAB PO SCH (21:02)
[2024-12-31 01:00] VITALS: BP 111/59; PULSE 77; RESP 19; TEMP 98; O2SAT 97
[2024-12-31 05:00] VITALS: BP 118/67; PULSE 81; RESP 19; TEMP 97.9; O2SAT 96
[2024-12-31] MEDS ORDERED: SODIUM CHL 0.9% 1000 ML BAG XX ONE (07:00)
[2024-12-31 09:08] VITALS: BP 121/66; PULSE 77; RESP 16; TEMP 97.9; O2SAT 97
[2024-12-31] MEDS: LOSARTAN POTASSIUM 50 MG TAB PO SCH (09:29)
--- NOTE | 2024-12-31 10:57 | DVHPN2 ---
Progress Note Date Seen: Dec 31, 2024 Medical Necessity Reason Pt with a Central, PICC or Fol: No Subjective Patient reports: No new complaints Other Systems: Patient seen and examined by myself today in follow-up Patient examined hemodialysis, blood pressure stable Objective vital signs Vital Sign Date Time Temp Pulse Resp B/P (MAP) Pulse Ox O2 Delivery O2 Flow Rate FiO2 12/31/24 09:45 121/66 12/31/24 09:29 77 12/31/24 09:08 97.9 16 97 97.9 12/31/24 08:00 Room Air* 0 21 Total Intake and Output 12/30/24 12/30/24 12/31/24 15:00 23:00 07:00 Intake Total 1540 ml 1050 ml Output Total 1000 ml 501 ml Balance 540 ml 549 ml medications Current Medications Medications Dose Ordered Sig/Misty Route Start Time Stop Time Status Last Admin Dose Admin Apixaban 2.5 mg BID PO 12/26/24 22:00 12/31/24 09:28 2.5 MG Atorvastatin Calcium 40 mg HS PO 12/26/24 22:00 12/30/24 21:02 40 MG Levetiracetam 1,000 mg BID PO 12/26/24 22:00 12/31/24 09:28 1,000 MG Hydralazine HCl 10 mg Q6HP PRN IV 12/26/24 19:30 12/29/24 17:53 10 MG Furosemide 40 mg DAILY IV 12/27/24 10:00 12/30/24 09:40 40 MG Diagnostic Test (Pha) 1 strip ACHS 12/26/24 22:00 12/31/24 06:06 1 STRIP Insulin Human Regular ACHS SC 12/26/24 22:00 12/30/24 21:37 3 UNITS Dextrose 50 ml UD PRN IV 12/26/24 19:30 Ondansetron HCl 4 mg Q4HP PRN IV 12/26/24 19:30 12/30/24 08:45 4 MG Acetaminophen 650 mg Q6HP PRN PO 12/26/24 19:30 12/27/24 03:14 650 MG Nitroglycerin 0.4 mg Q5MINP PRN SL 12/26/24 19:30 Morphine Sulfate 2 mg Q30M PRN IV 12/26/24 19:30 12/27/24 13:08 2 MG Lorazepam 1 mg Q5MINP PRN IV 12/28/24 05:00 Lorazepam 0.5 mg Q8HP PRN IV 12/28/24 09:30 Hold 12/28/24 18:40 0.5 MG Acetaminophen/ Hydrocodone Bitart 1 tab Q4HP PRN PO 12/28/24 09:30 12/30/24 21:03 1 TAB Pantoprazole Sodium 40 mg DAILY IV 12/29/24 10:00 12/30/24 09:40 40 MG Lorazepam 0.5 mg Q8HP PRN PO 12/29/24 13:30 12/30/24 09:45 0.5 MG Calcium Acetate 2,001 mg TIDWMEALS PO 12/29/24 18:00 12/31/24 09:28 2,001 MG Labetalol HCl 10 mg Q2HPRN PRN IV 12/30/24 09:30 Hydralazine HCl 100 mg Q8HR PO 12/30/24 14:00 12/30/24 21:02 100 MG Losartan Potassium 100 mg DAILY PO 12/31/24 10:00 12/31/24 09:29 100 MG Nifedipine 90 mg QPM PO 12/31/24 18:00 Carvedilol 25 mg Q12HR PO 12/30/24 22:00 12/31/24 09:29 25 MG Examination: LUNGS:Normal, CVS:Normal, MSK:Abnormal laboratory and microbiology Laboratory Tests 12/30/24 05:08 12/26/24 12:05 Test 12/30/24 05:08 Range/Units Serum Glucose 99 74-106 mg/dL Microbiology Date/Time Source Procedure Growth Status 12/27/24 16:30 Nose MRSA Screen - Final Complete Problem List/Assessment/Plan Problem List/Assessment/Plan ESRD on hemodialysis Musculoskeletal chest pain Hyperkalemia, resolved Hypertensive emergency acute on chronic diastolic heart failure with preserved ejection fraction Seizure disorder with breakthrough seizure Schizophrenia Anemia of chronic kidney disease, well compensated off OSMAN Severe hyperphosphatemia due to dietary indiscretion Recommendations Continue with UF 2-3 L as tolerated Renal diet Fluid restrictions Calcium acetate 2001 mg p.o. t.i.d. with meals Blood pressure control Streamline blood pressure medications Increase hydralazine to 100 mg p.o. t.i.d. Increase carvedilol 25 mg p.o. b.i.d. Change nifedipine 90 mg XR p.o. q.p.m. Increase losartan to 100 mg p.o. q.day We will continue to follow up Total Care time 25 minutes Plan discussed with: Patient My Orders My Orders Orders - ARTEMIO DENNISON MD Procedure Category Date Status Time Hydralazine Hcl PHA 12/30/24 In Process Tablet (Apresoline 14:00 Losartan Tablet PHA 12/31/24 In Process (Cozaar Tablet) 10:00 Carvedilol Tablet PHA 12/30/24 In Process (Coreg Tablet) 22:00 Hemodialysis Orders ORDERS 12/31/24 Transmitted 07:00 Dialysis Nursing [facility] 12/31/24 In Process Message 07:00 Document Fluid Input [facility]OLY 12/31/24 In Process And Outpu 07:00 Nifedipine Er PHA 12/31/24 In Process (Procardia Xl 18:00 Hydralazine Hcl PHA 12/31/24 Verified Tablet (Apresoline 11:00 ARTEMIO DENNISON MD Dec 31, 2024 10:57
[2024-12-31 12:36] VITALS: BP 119/73; PULSE 65; RESP 17; TEMP 98.6; O2SAT 96
[2024-12-31] MEDS ORDERED: CARV25TA55 PO (17:23)
[2024-12-31] MEDS ORDERED: NIFE1TAB31 PO (17:28)
[2024-12-31] MEDS ORDERED: LOSA-534 PO (17:28)
[2024-12-31 17:33] VITALS: BP 119/73; PULSE 77; RESP 20; TEMP 37; O2SAT 98
--- NOTE | 2024-12-31 18:59 | DVHPN2 ---
Subjective better Reviewed: Care Plan, H&P, Labs, Medications, Previous Orders, Radiology Changes from previous H/P or p: No Changes General: Per HPI Objective Vitals Vital Signs Date Time Temp Pulse Resp B/P (MAP) Pulse Ox O2 Delivery O2 Flow Rate FiO2 12/31/24 17:33 37.0 77 20 98 12/31/24 12:36 119/73 (88) 12/31/24 08:00 Room Air* 0 21 Intake/Output Intake and Output 12/31/24 07:00 Intake Total 2590 ml Output Total 1501 ml Balance 1089 ml Intake Oral 2590 ml Output Urine Total 1500 ml Stool Total 1 ml General Appearance: Alert, Oriented X3, Cooperative HEENT: Atraumatic Lungs: Clear to auscultation, Normal air movement Cardiovascular: Regular rate Abdomen: Normal bowel sounds, Soft, No tenderness Skin: Intact Laboratory Results Laboratory Tests 12/26/24 12:05 12/30/24 05:08 Microbiology Microbiology Date/Time Source Procedure Growth Status 12/27/24 16:30 Nose MRSA Screen - Final Complete Assessment/Plan Assessment/Plan Acute on chronic heart failure Fluid overload End-stage renal disease on hemodialysis Hypertensive urgency Chest pain Chest wall pain Schizophrenia Anemia of chronic disease Seizures Poor compliance Plan: Continue with the plan of discharge home today. Blood pressure is stable Plan discussed with: Patient My Orders Orders - GELY SCHROEDER MD Procedure Category Date Status Time Discharge DISCHARGE 12/31/24 Transmitted 17:18 Date of Service: Dec 31, 2024 Billing Provider: GELY SCHROEDER MD Common Visit Codes: [id number] INP/OBS CARE(HIGH) GELY SCHROEDER MD Dec 31, 2024 18:59
--- NOTE | 2025-01-04 08:22 | ECG ---
[facility] Test Date: 2024-12-27 Test Time: 10:40:36 Pat Name: ASHELY ZELAYA Department: ER Room: [facility]0T A Gender: M Director Independent: GP : 1970 Requested By: LUIS MCLAUGHLIN Order Number: [id number] Reading MD: Andrew Fish Measurements Intervals [place] Rate: 83 P: 24 NE: 121 QRS: 15 QRSD: 88 T: 202 QT: 408 QTc: 480 Interpretive Statements Sinus rhythm LVH with secondary repolarization abnormality Borderline prolonged QT interval Baseline wander in lead(s) V1 Electronically Signed On 01-04-2025 9:03:42 PDT by Andrew Fish Please click the below link to view image of tracing.
== END 2024-12-31 18:04 | disposition home or self-care (01) | DRG 194 ==
LOC: ER 11:52 → OVERFLOW 19:17 → TELE-WESTW 12-27 12:20
PROVIDERS: ADMIT Nurse Practitioner Acute Care; ATTEND Nurse Practitioner Acute Care
PROC: 5A1D70Z Performance of Urinary Filtration, Intermittent, Less than 6 Hours Per Day (ICD-10-PCS; principal; 2024-12-29)
DX: I13.2 Hypertensive heart and chronic kidney disease with heart failure and with stage 5 chronic kidney disease, or end stage renal disease (principal); E87.20 Acidosis, unspecified; D63.1 Anemia in chronic kidney disease; E83.39 Other disorders of phosphorus metabolism; N18.6 End stage renal disease; I24.9 Acute ischemic heart disease, unspecified; I48.91 Unspecified atrial fibrillation; G40.909 Epilepsy, unspecified, not intractable, without status epilepticus; I50.33 Acute on chronic diastolic (congestive) heart failure; E11.22 Type 2 diabetes mellitus with diabetic chronic kidney disease; E87.5 Hyperkalemia; F20.9 Schizophrenia, unspecified; F41.9 Anxiety disorder, unspecified; E78.5 Hyperlipidemia, unspecified; F17.210 Nicotine dependence, cigarettes, uncomplicated; I25.10 Atherosclerotic heart disease of native coronary artery without angina pectoris; Z86.73 Personal history of transient ischemic attack (TIA), and cerebral infarction without residual deficits; Z88.0 Allergy status to penicillin; Z88.1 Allergy status to other antibiotic agents; Z91.158 Patient's noncompliance with renal dialysis for other reason; Z99.2 Dependence on renal dialysis; I25.2 Old myocardial infarction; Z79.899 Other long term (current) drug therapy; Z83.3 Family history of diabetes mellitus; Z82.49 Family history of ischemic heart disease and other diseases of the circulatory system; I16.0 Hypertensive urgency
CPT/HCPCS: 36415; 71045; 80048; 82306; 82962; 83735; 83880; 83970; 84100; 84484; 85025; 87081; 87340; 90935; 93005; 94640; 96365; 96375; 99291; G0378; J1815; J2405; J2470

== ENCOUNTER 2025-01-09 04:40 | Emergency (ER) | payer MEDICAID ==
[~2025-01-09] VITALS: Ht 182.9 cm; Wt 81.8 kg
[~2025-01-09 04:40] MED LIST changes: -CARV-216 PO; +CARV25TA55 PO
[2025-01-09 04:44] VITALS: BP 215/128; RESP 18; TEMP 98.8; O2SAT 100
[2025-01-09] MEDS ORDERED: HYDROmorphone HCL 2 MG/ML VL/or syr IV ONE (05:00)
[2025-01-09] MEDS ORDERED: ONDANSETRON HCL 4 MG/2 ML VIAL IV ONE (05:00)
[2025-01-09] MEDS ORDERED: NITROGLYCERIN 2% OINT 1GM PKG TD ONE (05:00)
[2025-01-09] MEDS ORDERED: hydrALAZINE HCL 20 MG/ML VL IV ONE (05:00)
[2025-01-09 05:14] VITALS: PULSE 87
--- NOTE | 2025-01-09 05:14 | ED.PDOC ---
History of Present Illness HPI Comments 54 y/o M presents with c/c of hypertension. Patient reports on checking and noticing his blood pressure being elevated after waking up, this morning, at 0400, with chest pain and bilateral leg weakness. He reports a systolic at-home pressure in the 200's range prior to arrival. Patient also states on being p laced on new blood pressure medication, recently. Denies any shortness of breath, headache, dizziness, or further acute symptoms. Chief Complaint: High Blood Pressure Time Seen by MD: 04:45 Primary Care Provider: KELLIE Reviewed Notes: Nurses Notes, Medications, Allergies Allergies: Coded Allergies: Erythromycin (Verified Allergy, Unknown, 04/17/24) Penicillins (Verified Allergy, Unknown, 04/17/24) Home Meds Active Scripts Losartan Potassium (Losartan Potassium) 50 Mg Tab, 100 MG PO DAILY for 30 Days, #60 TAB Prov:GELY SCHROEDER MD 12/31/24 Nifedipine (Nifedipine Er) 30 Mg Tab, 90 MG PO QPM for 30 Days, #90 TAB Prov:GELY SCHROEDER MD 12/31/24 Carvedilol (Carvedilol) 25 Mg Tab, 1 TAB PO BID, #60 TAB 5 Refills Prov:GELY SCHROEDER MD 12/31/24 Hydralazine Hcl (Hydralazine Hcl) 50 Mg Tab, 1 TAB PO TID, #90 TAB Prov:RICKY MARTELL RESIDENT 12/22/24 Nifedipine (Nifedipine Er) 30 Mg Tab, 90 MG PO DAILY for 30 Days, #90 TAB Prov:GULSHAN JIMENEZ 11/20/24 Dorzolamide HCl-Timolol Maleat (Cosopt 2-0.5 %) 1 Keerthi Keerthi, 1 KEERTHI OP BID for 30 Days, #10 ML 1 Refill Prov:GULSHAN JIMENEZ 11/20/24 Brimonidine Tartrate (Alphagan P) 0.1 % Keerthi, 0.1 % OP TID for 30 Days, #10 ML 1 Refill Prov:GULSHAN JIMENEZ RESIDENT 11/20/24 Hydrocodone-Acetaminophen (Hydrocodone Bitartrate/AC 5-325 mg) 1 Tab Tab, 1-2 TAB PO Q6HP PRN, #30 TAB Prov:QASIM BEJARANO MD 10/28/24 Apixaban Base (ELIQUIS) 2.5 Mg Tab, 2.5 MG PO BID for 30 Days, #60 TAB Prov:BERTRAM LARKIN [facility] 08/23/24 Atorvastatin Calcium (Lipitor) 40 Mg Tab, 40 MG PO DAILY for 40 Days, #40 TAB Prov:BERTRAM LARKIN [facility] 08/23/24 Bumetanide (Bumetanide) 1 Mg Tab, 1 TAB PO DAILY for 30 Days, #30 TAB Prov:BERTRAM LARKIN [facility] 08/23/24 Levetiracetam (Levetiracetam) 1,000 Mg Tab, 1 TAB PO BID for 30 Days, #60 TAB Prov:BERTRAM LARKIN [facility] 08/23/24 Reported Medications Quetiapine Fumerate (QUETIAPINE FUMARATE) 50 Mg Tab, 1 TAB PO 06/07/24 Insulin Lispro (Insulin Lispro Thai Kwi) 100 Unit/Ml Inj 06/07/24 Olopatadine HCl (Olopatadine Hydrochloride) 0.1 % Melchor, 1 DROP LEFTEYE BID 06/07/24 Information Source: Patient Mode of Arrival: Wheelchair Severity: Moderate Timing: Hours Duration: Since onset Prehospital treatment: None Past Medical History PAST MEDICAL HISTORY: AFIB, CAD, CHF, CVA, DM, ESRD (w/HD M/W/F), High Lipids, HTN, UT, Schizophrenia, Seizures Surgical History (Other): right chest dialysis catheter Family History Family History: Reviewed,noncontributory to illness Social History Smoker: Cigarettes Alcohol: Denies ETOH Use Drugs: Denies Drug Use Lives In: Assisted Care All Other Systems: Reviewed and Negative (as per HPI) Physical Exam General Appearance: No Apparent Distress, Normal HEENT: Normal ENT Inspection, Pharynx Normal, TMs Normal Neck: Full Range of Motion, Non-Tender, Normal, Normal Inspection Respiratory: Chest Non-Tender, Decreased Breath Sounds (at bilateral bases ), Lungs Clear, No Accessory Muscle Use, No Respiratory Distress Cardiovascular: No Edema, No JVD, No Murmur, No Gallop, Normal Peripheral Pulses, Regular Rate/Rhythm Breast Exam: Deferred Gastrointestinal: No Organomegaly, Non Tender, No Pulsatile Mass, Normal Bowel Sounds, Soft Genitalia: Deferred Pelvic: Deferred Rectal: Deferred Extremities: No calf tenderness, Normal capillary refill, Normal inspection, Normal range of motion, Non-tender, No pedal edema Musculoskeletal : Apperance: Normal 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 Was a procedure done?: No EKG EKG : Pulse Rate (adult): 87 [place]: Normal Cardiac Rhythm: NSR Block: None Hypertrophy: None ST: Normal Differential Dx Considerations may include: hypertensive emergency, inappropriate medication, UT, PE, ACS, CAD, PNA, URI, angina, among others X-Ray, Labs, Meds, VS Vital Signs Date Time Temp Pulse Resp B/P (MAP) Pulse Ox O2 Delivery O2 Flow Rate FiO2 01/09/25 05:14 87 01/09/25 04:52 87 01/09/25 04:44 98.8 90 18 215/128 100 98.8 Lab Test 01/09/25 05:08 Range/Units White Blood Count 8.8 4.4-10.8 10^3/uL Red Blood Count 3.90 L 4.5-5.90 10^6/uL Hemoglobin 12.1 L 13.5-17.5 g/dL Hematocrit 35.7 L 41.0-53.0 % Mean Corpuscular Volume 91.6 80.0-100.0 fL Mean Corpuscular Hemoglobin 31.1 28.0-32.0 pg Mean Corpuscular Hemoglobin Concent 34.0 32.0-36.0 g/dL Red Cell Distribution Width 14.3 11.8-14.3 % Platelet Count 240 140-450 10^3/uL Mean Platelet Volume 7.6 6.9-10.8 fL Neutrophils (%) (Auto) 60.7 37.0-80.0 % Lymphocytes (%) (Auto) 23.1 10.0-50.0 % Monocytes (%) (Auto) 8.9 0.0-12.0 % Eosinophils (%) (Auto) 6.5 0.0-7.0 % Basophils (%) (Auto) 0.8 0.0-2.0 % Neutrophils # (Auto) 5.4 1.6-8.6 10 ^3/uL Lymphocytes # (Auto) 2.0 0.4-5.4 10 ^3/uL Monocytes # (Auto) 0.8 0-1.3 10 ^3/uL Eosinophils # (Auto) 0.6 0-0.8 10 ^3/uL Basophils # (Auto) 0.1 0-0.2 10 ^3/uL Nucleated Red Blood Cells 0.0 % Prothrombin Time 10.0 9.3-11.8 sec Prothrombin Time INR 0.94 0.9-1.15 Activated Partial Thromboplast Time 27.6 24.5-34.5 SEC Sodium Level 141 136-145 mmol/L Potassium Level 6.2 *H 3.5-5.1 mmol/L Chloride Level 111 H 98-107 mmol/L Carbon Dioxide Level 15 L 20-31 mmol/L Anion Gap 15 5-15 Blood Urea Nitrogen 62 H 9-23 mg/dL Creatinine 8.33 H 0.700-1.30 mg/dL Glomerular Filtration Rate Calc 7 >90 mL/min BUN/Creatinine Ratio 7.4 L 10.0-20.0 Serum Glucose 111 H 74-106 mg/dL Calcium Level 8.3 L 8.7-10.4 mg/dL Total Bilirubin < 0.2 L 0.2-1.0 mg/dL Aspartate Amino Transferase (AST) 18 13-40 U/L Alanine Aminotransferase (ALT) 17 7-40 U/L Alkaline Phosphatase 98 46-116 U/L Troponin I High Sensitivity 14 </=54 ng/L B-Type Natriuretic Peptide 988.29 0-100 pg/mL Total Protein 6.3 5.7-8.2 g/dL Albumin 3.7 3.2-4.8 g/dL [place] [id number] Ph: [phone] DIAGNOSTIC IMAGING Diagnostic Imaging Report : [id number] Signed PATIENT: ASHELY ZELAYA ACCT: [id number] UNIT: [id number] : 1970 LOC: ER ROOM / BED: / AGE / SEX: 54 / M ADM STATUS: REG ER SERVICE [id number] ORDERING PHYSICIAN: MYRIAM CORNELIUS MD PROCEDURE(s): CXRP - CHEST PORTABLE REASON: ESRD chest pain ORDER NUMBER(s): [id number], ACCESSION NUMBER(s): [id number] CHEST RADIOGRAPH Indication: ESRD chest pain Technique: Single frontal view of the chest was obtained COMPARISON: XY CHEST PORTABLE on DOS: 12/26/24, XY CHEST XRAY 1 VIEW on DOS: 12/21/24, XY CHEST PORTABLE on DOS: 11/16/24, XY CHEST XRAY 1 VIEW on DOS: 10/28/24, CT THORACIC SPINE WO CONTRAS on DOS: 10/28/24 FINDINGS: Lines and Tubes: Right PermCath tip projects over the right atrium. Lungs: Clear Pleura: No effusion. No pneumothorax. Cardiomediastinal contours: Unremarkable Bones: Unremarkable IMPRESSION: 1. No radiographic evidence of acute cardiopulmonary abnormality. 2. Right PermCath. ATED BY: JOVANY MARTINEZ MD DICTATED DATE/TIME: 01/09/25520 SIGNED BY: JOVANY MARTINEZ MD SIGNED DATE/TIME: 01/09/25520 CC: Time of 1ST Reevaluation: 05:15 Reevaluation 1ST: Unchanged Patient Education/Counseling: Diagnosis, Treatment, Other (need for admission ) Family Education/Counseling: No Family Present SEPSIS Sepsis Screen Date sepsis recognized/suspect: Jan 09, 2025 Time Sepsis recognized/suspect: 044 Recent Procedure: No Respiratory Rate >20: No Heart Rate >90: No Temp<36 C (96.8 F) or >38.3 C: No SBP <90 or MAP <65 mmHG: No New Acute Mental Status Change: No Is the patient on CPAP, BIPAP,: No Physician Orders Chest Portable (01/09/25 04:56) Electrocardigram (01/09/25 04:56) Troponin-I Hs (01/09/25 05:56) Troponin-I Hs (01/09/25 07:56) Vital Signs Date Time Temp Pulse Resp B/P (MAP) Pulse Ox O2 Delivery O2 Flow Rate FiO2 01/09/25 05:14 87 01/09/25 04:52 87 01/09/25 04:44 98.8 90 18 215/128 100 98.8 Laboratory Tests Test 01/09/25 05:08 White Blood Count 8.8 10^3/uL (4.4-10.8) Departure 1 Departure Time of Disposition: 05:55 Impression: Primary Impression: End stage renal disease on dialysis Additional Impressions: Chest pain with high risk of acute coronary syndrome Hypertensive urgency Hyperkalemia Disposition: ADMITTED INPATIENT Admit to: Tele Condition: Guarded Comments Patient with history of end-stage renal disease on dialysis now with chest pain and hypertension. On his lab results his BUN creatinine are high at 62 and 8.3. He has hyperkalemia 6.2. BNP is elevated 988. Initial troponin is normal at 14. Chest x-ray shows no signs of CHF. Patient was given aspirin and hydralazine and nitroglycerin. Patient will need to be admitted for supportive care and further workup. Critical Care Note Critical Care Time?: Yes (35 min-critical care time only) Critical care comment: Total critical care time: Approximately 36 minutes Due to a high probability of clinically significant, life threatening deterioration, the patient required my highest level of preparedness to intervene emergently and I personally spent this critical care time directly and personally managing the patient. This critical care time included obtaining a history; examining the patient; pulse oximetry; ordering and review of studies; arranging urgent treatment with development of a management plan; evaluation of patient's response to treatment; frequent reassessment; and, discussions with other providers. This critical care time was performed to assess and manage the high probability of imminent, life-threatening deterioration that could result in multi-organ failure. It was exclusive of separately billable procedures and treating other patients. Stability Stability form required: No Heart Score Heart Score: Heart Score Response (Comments) Value History Moderate Suspicious 1 EKG Normal 0 Age 45-64 1 Risk Factors >3 or Hx ASHD 2 Troponin Normal limit 0 Total 4 I personally scribed for MYRIAM CORNELIUS MD ([email or web address]) on 01/09/25 at 05:14. Electronically submitted by Kurt Jacinto ([email or web address]). I personally scribed for MYRIAM CORNELIUS MD ([email or web address]) on 01/09/25 at 05:33. Electronically submitted by Kurt Jacinto ([email or web address]). MYRIAM CORNELIUS MD Jan 09, 2025 05:14
--- NOTE | 2025-01-09 05:24 | DVH ---
CHEST RADIOGRAPH Indication: ESRD chest pain Technique: Single frontal view of the chest was obtained COMPARISON: XY CHEST PORTABLE on DOS: 12/26/24, XY CHEST XRAY 1 VIEW on DOS: 12/21/24, XY CHEST PORTABL E on DOS: 11/16/24, XY CHEST XRAY 1 VIEW on DOS: 10/28/24, CT THORACIC SPINE WO CONTRAS on DOS: 10/28/24 FINDINGS: Lines and Tubes: Right PermCath tip projects over the right atrium. Lungs: Clear Pleura: No effusion. No pneumothorax. Cardiomediastinal contours: Unremarkable Bones: Unremarkable IMPRESSION: 1. No radiographic evidence of acute cardiopulmonary abnormality. 2. Right PermCath.
[2025-01-09 05:25] LABS: Hematocrit 35.7 % (41.0-53.0); Hemoglobin 12.1 g/dL (13.5-17.5); Mean Corpuscular Hemoglobin 31.1 pg (28.0-32.0); Mean Corpuscular Volume 91.6 fL (80.0-100.0); Nucleated Red Blood Cells % 0.0 %
[2025-01-09 05:38] LABS: INR 0.94 (0.9-1.15); Partial Thromboplastin Time 27.6 SEC (24.5-34.5); Prothrombin Time 10.0 sec (9.3-11.8)
[2025-01-09 05:44] LABS: Alanine Aminotransferase 17 U/L (7-40); Albumin 3.7 g/dL (3.2-4.8); Alkaline Phosphatase 98 U/L (46-116); Anion Gap 15 (5-15); BUN/Creatinine Ratio 7.4 (10.0-20.0); Sodium 141 mmol/L (136-145); Total Protein 6.3 g/dL (5.7-8.2)
[2025-01-09 05:51] LABS: Bilirubin, Total < 0.2 mg/dL (0.2-1.0); Blood Urea Nitrogen 62 mg/dL (9-23); Calcium 8.3 mg/dL (8.7-10.4); Carbon Dioxide 15 mmol/L (20-31); Chloride 111 mmol/L (98-107); Glucose 111 mg/dL (74-106)
[2025-01-09 05:52] LABS: Potassium 6.2 mmol/L (3.5-5.1)
[2025-01-09] MEDS ORDERED: SODIUM CHL 0.9% 1000 ML BAG XX ONE (09:15)
[2025-01-09] MEDS ORDERED: InsuLIN REG 1unit/0.01ml Soln (100units/ml) IV ONE (09:15)
[2025-01-09] MEDS ORDERED: DEXTROSE (50%) 50ML SYRG IV ONE (09:15)
--- NOTE | 2025-01-10 00:24 | ECG ---
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
== END 2025-01-09 10:27 | disposition left against medical advice (07) ==
LOC: ER 04:40
DX: I13.2 Hypertensive heart and chronic kidney disease with heart failure and with stage 5 chronic kidney disease, or end stage renal disease (principal); E11.22 Type 2 diabetes mellitus with diabetic chronic kidney disease; N18.6 End stage renal disease; I50.9 Heart failure, unspecified; I16.0 Hypertensive urgency; R07.89 Other chest pain; E87.5 Hyperkalemia; F17.210 Nicotine dependence, cigarettes, uncomplicated; I25.10 Atherosclerotic heart disease of native coronary artery without angina pectoris; I25.2 Old myocardial infarction; I48.91 Unspecified atrial fibrillation; Z86.73 Personal history of transient ischemic attack (TIA), and cerebral infarction without residual deficits; Z88.0 Allergy status to penicillin; Z88.1 Allergy status to other antibiotic agents; Z99.2 Dependence on renal dialysis
CPT/HCPCS: 36415; 71045; 80053; 83880; 84484; 85025; 85610; 85730; 93005; 99291

== ENCOUNTER 2025-01-27 00:58 | Inpatient (IN) | payer MEDICAID, OTHER ==
[~2025-01-27] VITALS: Ht 185.4 cm; Wt 94.0 kg
--- NOTE | 2025-01-27 01:55 | ED.PDOC ---
HPI (NEURO) HPI Comments HPI: 54-year-old male who came to ER via EMS for seizures. every Thursday. Patient used to be on Keppra 1gm OD and 1 gm BID on dialysis days. Has been off his Keppra for the past 2 days since he was told that he was taking too much Keppra. Patient states he was at [facility] 2 days ago where he had dialysis for 3 consecutive days. Patient has no recollection of what happened, possibly had a seizure. Patient also on Eliquis. Patient arrives hypertensive systolic blood pressure greater than 200. Denies any other acute symptoms. No fall or trauma or injury. Patient is bed-bound. Patient discharged here last December 31 2024 diagnosed with Chest pain secondary to hypertensive crisis and pulmonary vascular congestion from missing hemodialysis -Chest pain due to pulmonary vascular congestion, hypertensive crisis -end-stage renal disease -schizophrenia -anemia of chronic disease -anxiety -primary hypertension, hypertensive crisis -seizure disorder with breakthrough seizure Past Medical History: Diabetes, congestive heart failure, end stage renal disease on hemodialysis, seizures, blind, wheelchair bound Surgical History: Dialysis Thursday Family History: Denies Personal And Social History: HPI: Poor Historian. On my initial evaluation, Patient is no longer postictal. He is answering all questions appropriately in paying attention to details. REVIEW OF SYSTEMS: CONSTITUTIONAL: Denies acute: fever, diaphoresis, chills, HEAD: Denies acute: headache, photophobia Eyes: Denies acute: Double vision, vision loss, eye pain, eye discharge. EARS: Denies acute: tinnitus, hearing loss, ear discharge, ear pain, THROAT: Denies acute: sore throat, swelling, difficulty swallowing , pain with swallowing, change in voice. NECK: Denies acute: neck pain, neck swelling, stiff neck. HEART: Denies acute : chest pain, palpitations, LUNGS: Denies acute: SOB, wheezing, cough, hemoptysis ABDOMEN: Denies acute: abdominal pain, Nausea, Vomiting, melena , hematemesis, hematochezia SKIN: Denies acute: rash, redness, lesions, itchiness. EXTREMITIES: Denies acute: calf pain, numbness, tingling, weakness, denies pain in extremity. Denies acute: Low back pain. Neuro: Denies acute: focal neurological deficit, motor or sensory focal neurological deficit, tremors, confusion, dizziness, change in mental status, loss of bowel or bladder function, cauda equina like symptoms. : Denies acute: dysuria, hematuria, flank pain, increase in urinary frequency. PSYCH: Denies acute: hallucination, suicidal ideation, homicidal ideation. PHYSICAL EXAM: General: -----mild---acute distress, awake and alert. Head: normocephalic, atraumatic. No raccoon's eyes, no torres sign. Neck: supple, trachea is midline, no swelling. Throat: Normal phonation. Eyes:, blind. Eyes are closed. Heart: regular rate, regular rhythm, no significant murmur appreciated. Lungs: no apparent respiratory distress, Able to speak in full sentences. No wheezing, no rhonchi, no crackles. No stridors Clear to auscultation bilaterally. Abdomen: Slightly generalized tender to palpation, non distended, soft, no guarding, no rebound, + bowel sounds. Neuro: Awake, Alert, oriented to name, self, situation, follows commands GCS=15. Speech is normal. Skin: no petechia, no purpura, no cyanosis, slightly-pale, not jaundice. Lower extremities: --no - Pitting edema no deformity, no focal swelling, no calf TTP. moves all four extremities. Face: no apparent facial droop. ED COURSE: DISCLAIMER: This medical document was created using an electronic medical record system with voice recognition software and computerized dictation system. Although this document has been carefully reviewed, there might still be some phonetic and typographical errors. Occasional wrong-word or "sound-alike" substitutions may have occurred due to the inherent limitations of voice recognition software. These areas are purely typographical due to imperfections of the software programs and do not reflect any compromise in the patient's medical care. Please read the chart carefully and recognize, using context, where these substitutions have occurred. Chief Complaint: Seizure Time Seen by MD: 01:53 Reviewed Notes: [employer] Applications Analyst Notes Information Source: Patient, Emergency Med Personnel Mode of Arrival: EMS Past Medical History PAST MEDICAL HISTORY: CHF, DM, ESRD, HTN, Seizures Surgical History: Denies all surgeries Was a procedure done? Was a procedure done?: No Differential Diagnosis (SZ) Seizure: Other (SEIZUREDDX include not limited to CVA, cerebellar ischemia/infa rct, carotid stenosis, vertebral/carotid artery dissection,, vertebrobasillary insufficiency, Intracranial mass/infection/bleed, encephalopathy, elctrolyte abnormality, thyroid disease, multiple sclerosis, hypoglycemia, drug toxicity, cardiac arrhythmia, sub-theraputic anti-convulsion medications, known seizure disorder, pseudo-seizure.) General Weakness: Other (As far as the hypertension: DDX include renal disease, thyroid disease, electrolyte abnormality, increased salt intake, medi cations non-compliance, undiagnosed HTN, Hypertensive crisis, hypertensive urgency., drug toxicity.) Headache: N/A X-Ray, Labs, Meds, VS Vital Signs Date Time Temp Pulse Resp B/P (MAP) Pulse Ox O2 Delivery O2 Flow Rate FiO2 01/27/25 02:44 195/106 01/27/25 01:46 Room Air* 0 21 01/27/25 00:58 98.4 102 20 213/111 98 98.4 Lab Test 01/27/25 03:03 01/27/25 01:59 Range/Units Troponin I High Sensitivity Pending 16 </=54 ng/L Levetiracetam Level Pending White Blood Count 9.4 4.4-10.8 10^3/uL Red Blood Count 3.66 L 4.5-5.90 10^6/uL Hemoglobin 11.2 L 13.5-17.5 g/dL Hematocrit 32.7 L 41.0-53.0 % Mean Corpuscular Volume 89.1 80.0-100.0 fL Mean Corpuscular Hemoglobin 30.5 28.0-32.0 pg Mean Corpuscular Hemoglobin Concent 34.2 32.0-36.0 g/dL Red Cell Distribution Width 13.4 11.8-14.3 % Platelet Count 262 140-450 10^3/uL Mean Platelet Volume 7.5 6.9-10.8 fL Neutrophils (%) (Auto) 66.0 37.0-80.0 % Lymphocytes (%) (Auto) 20.5 10.0-50.0 % Monocytes (%) (Auto) 8.8 0.0-12.0 % Eosinophils (%) (Auto) 4.1 0.0-7.0 % Basophils (%) (Auto) 0.6 0.0-2.0 % Neutrophils # (Auto) 6.2 1.6-8.6 10 ^3/uL Lymphocytes # (Auto) 1.9 0.4-5.4 10 ^3/uL Monocytes # (Auto) 0.8 0-1.3 10 ^3/uL Eosinophils # (Auto) 0.4 0-0.8 10 ^3/uL Basophils # (Auto) 0.1 0-0.2 10 ^3/uL Nucleated Red Blood Cells 0.0 % Sodium Level 143 136-145 mmol/L Potassium Level 5.5 H 3.5-5.1 mmol/L Chloride Level 110 H 98-107 mmol/L Carbon Dioxide Level 21 20-31 mmol/L Anion Gap 12 5-15 Blood Urea Nitrogen 47 H 9-23 mg/dL Creatinine 7.79 H 0.700-1.30 mg/dL Glomerular Filtration Rate Calc 8 >90 mL/min BUN/Creatinine Ratio 6.0 L 10.0-20.0 Serum Glucose 115 H 74-106 mg/dL Lactic Acid Level 0.7 0.4-2.0 mmol/L Calcium Level 9.0 8.7-10.4 mg/dL Total Bilirubin 0.2 0.2-1.0 mg/dL Aspartate Amino Transferase (AST) 17 13-40 U/L Alanine Aminotransferase (ALT) 13 7-40 U/L Alkaline Phosphatase 95 46-116 U/L Total Protein 6.4 5.7-8.2 g/dL Albumin 3.8 3.2-4.8 g/dL Current Medications Medications (Trade) Dose Ordered Sig/Misty Route Start Time Stop Time Status Last Admin Hydralazine HCl (Apresoline Injection) 5 mg ONCE ONCE IV 01/27/25 02:00 01/27/25 02:01 DC 01/27/25 02:[address] [address] Ph: [phone] DIAGNOSTIC IMAGING Diagnostic Imaging Report : [id number] Signed PATIENT: ASHELY ZELAYA ACCT: [id number] UNIT: [id number] : 1970 LOC: ER ROOM / BED: / AGE / SEX: 54 / M ADM STATUS: REG ER SERVICE 0150 ORDERING PHYSICIAN: TATY LEAL DO PROCEDURE(s): HWOCT - HEAD WITHOUT CONTRAST REASON: seizure, htn ORDER NUMBER(s): [id number], ACCESSION NUMBER(s): [id number] EXAM: CT HEAD WITHOUT CONTRAST INDICATION: seizure, htn TECHNIQUE: CT of the head without intravenous contrast. Radiation Dose : 1. Head: CT Dose: CTDI volume is 53.73 mGy. Dose-length product is 1078.08 mGy*cm The dose indicators for CT are the volume Computed Tomography (CT) Dose Index (CTDIvol) and the Dose Length Product (DLP), and are measured in units of mGy and mGy-cm, respectively. These indicators are not patient dose, but values generated from the CT scanner acquisition factors. The report includes radiation exposure data for exposures received during this examination. COMPARISON: MRI BRAIN HEAD WO CONTRAST on DOS: 09/22/24, CT HEAD WITHOUT CONTRAST on DOS: 09/16/24, CT HEAD WITHOUT CONTRAST on DOS: 09/11/24, CT HEAD WITHOUT CONTRAST on DOS: 08/15/24, CT CERVICAL WITHOUT CONTRAST on DOS: 08/15/24 FINDINGS: There is no evidence of acute intracranial hemorrhage, extra-axial collection, mass effect, midline shift, herniation or hydrocephalus. The ventricles, sulci and cisterns are age appropriate. The bruno-white differentiation is intact. Patchy periventricular and subcortical white matter hypoattenuation is nonspecific but may be related to small vessel ischemic disease. The visualized paranasal sinuses and mastoid air cells are clear. The surrounding soft tissues and osseous structures are unremarkable. IMPRESSION: 1. No acute intracranial abnormality. Radiation optimization: All CT scans at this facility use at least one of these dose optimization techniques: automated exposure control mA and/or kV adjustment per patient size (includes targeted exams where dose is matched to clinical indication) or iterative reconstruction. ATED BY: JOVANY SHEPPARD MD DICTATED DATE/TIME: 01/27/25232 SIGNED BY: JOVANY SHEPPARD MD SIGNED DATE/TIME: 01/27/25232 CC: [place] [id number] Ph: [phone] DIAGNOSTIC IMAGING Diagnostic Imaging Report : [id number] Signed PATIENT: ASHELY ZELAYA ACCT: [id number] UNIT: [id number] : 1970 LOC: ER ROOM / BED: / AGE / SEX: 54 / M ADM STATUS: REG ER SERVICE 0141 ORDERING PHYSICIAN: TATY LEAL DO PROCEDURE(s): ABPL - CT AB PEL WO CON-NO ORAL OR IV REASON: diarrhea ORDER NUMBER(s): [id number], ACCESSION NUMBER(s): [id number] Exam: CT CT AB PEL WO CON-NO ORAL OR IV History: diarrhea Comparison Study: XY CHEST PORTABLE on DOS: 01/27/25, XY CHEST PORTABLE on DOS: 01/09/25, XY CHEST PORTABLE on DOS: 12/26/24, XY CHEST XRAY 1 VIEW on DOS: 12/21/24, XY CHEST PORTABLE on DOS: 11/16/24 Technique: Multidetector spiral CT of the abdomen was performed from lung bases to pubic symphysis. Imaging was performed without IV contrast. Axial, coronal and sagittal multiplanar reformats were obtained from the axial data set by the technologist. Radiation Dose : 1. Abdomen/Pelvis: CTDIvol 21.32 mGy, DLP 1436.47 mGy*cm. Findings: Evaluation of solid organs is limited due to lack of intravenous contrast use. Lung Bases: No acute or significant lung base finding. Normal heart size. No pleural or pericardial effusion. Right PermCath terminates at the cavoatrial junction. Liver: The liver is normal in size. No focal lesions. Gallbladder and Biliary Tree: 2.8 cm calcified gallstone just distal to the neck of the gallbladder. Spleen: Unremarkable Pancreas: The pancreas is grossly normal in appearance. Adrenal Glands: Unremarkable Kidneys: Kidneys are grossly normal without calculi or hydronephrosis. Bladder: Grossly unremarkable for degree of distention. Bowel: The stomach is grossly normal in appearance. Small bowel and colon are normal in caliber and distribution. The appendix is not visualized; however, no secondary findings of acute appendicitis identified. Ascites: Absent Lymphadenopathy: No mesenteric, retroperitoneal or periportal lymphadenopathy. Abdominal Wall and Mesentery: Unremarkable. Vasculature: The visualized abdominal aorta is normal in size and caliber. Minimal Atherosclerotic vascular calcifications. Evaluation of abdominal and pelvic vessels is limited due to lack of intravenous contrast. Pelvic Organs: Unremarkable Musculoskeletal: No aggressive focal bony lesions, acute fractures or dislocation. IMPRESSION: 1. No acute abdominal or pelvic findings. 2. Cholelithiasis. Radiation optimization: All CT scans at this facility use at least one of these dose optimization techniques: automated exposure control mA and/or kV adjustment per patient size (includes targeted exams where dose is matched to clinical indication) or iterative reconstruction. ATED BY: JOVANY SHEPPARD MD DICTATED DATE/TIME: 01/27/25238 SIGNED BY: JOVANY SHEPPARD MD SIGNED DATE/TIME: 01/27/25238 CC: [place] [id number] Ph: [phone] DIAGNOSTIC IMAGING Diagnostic Imaging Report : [id number] Signed PATIENT: ASHELY ZELAYA ACCT: [id number] UNIT: [id number] : 1970 LOC: ER ROOM / BED: / AGE / SEX: 54 / M ADM STATUS: REG ER SERVICE 8 ORDERING PHYSICIAN: TATY LEAL DO PROCEDURE(s): CXRP - CHEST PORTABLE REASON: Seizure ORDER NUMBER(s): [id number], ACCESSION NUMBER(s): [id number] CHEST RADIOGRAPH Indication: Seizure Technique: Single frontal view of the chest was obtained COMPARISON: XY CHEST PORTABLE on DOS: 01/09/25, XY CHEST PORTABLE on DOS: 12/26/24, XY CHEST XRAY 1 VIEW on DOS: 12/21/24, XY CHEST PORTABLE on DOS: 11/16/24, XY CHEST XRAY 1 VIEW on DOS: 10/28/24 FINDINGS: Lines and Tubes: Right PermCath tip projects over the cavoatrial junction. Lungs: Clear Pleura: No effusion. No pneumothorax. Cardiomediastinal contours: Unremarkable Bones: Unremarkable IMPRESSION: 1. No radiographic evidence of acute cardiopulmonary abnormality. 2. Right PermCath. ATED BY: JOVANY SHEPPARD MD DICTATED DATE/TIME: 01/27/25230 SIGNED BY: JOVANY SHEPPARD MD SIGNED DATE/TIME: 01/27/25230 CC: Time of 1ST Reevaluation: 01:54 Reevaluation 1ST: Unchanged Time of 2ND Reevaluation: 03:12 Reevaluation 2ND: Improved Patient Education/Counseling: Diagnosis, Treatment Family Education/Counseling: No Family Present Comments MDM: patient presented with the above HPI.---possible seizure---workup was initiated. patient was found with the above mentioned diagnosis. the following medications were ordered: please refer to order lists of meds and tests obtained by myself Dr. Leal. Patient ED course and VS have been stabilized. Patient has been reassessed in the ED and remained in a stable condition. Pertinent incidental findings were discussed with the patient and/or family. Patient/family voices understanding and is agreeable with plan. Patient has been observed in the ED adequate length of time to insure improvement/stability. Escalation of care considered: Consideration of escalation to observation or admission Keppra level was ordered. Patient was given a load of Keppra. The patient was found with slight hyperkalemia. Albuterol and Lasix were ordered. Patient was given hydralazine for hypertensive crisis. Patient was ADMITTED to the medicine team for further evaluation and treatment of their presentation. All the reports of any imaging studies that were ordered by myself were reviewed by myself. Departure 1 Departure Time of Disposition: 02:14 Impression: Primary Impression: Breakthrough seizure Additional Impressions: ESRD on hemodialysis Hypertensive crisis Hyperkalemia Disposition: ADMITTED INPATIENT Admit to: Tele Condition: Guarded Discharged With: Self Critical Care Note Critical Care Time?: Yes (45 min-critical care time only) I personally scribed for TATY LEAL DO ([email or web address]) on 01/27/25 at 01:54. Electronically submitted by Nabeel Merino ([email or web address]). I personally scribed for TATY LEAL DO ([email or web address]) on 01/27/25 at 03:11. Electronically submitted by Nabeel Merino ([email or web address]). TATY LEAL DO Jan 27, 2025 01:54
[2025-01-27 02:18] LABS: Hematocrit 32.7 % (41.0-53.0); Hemoglobin 11.2 g/dL (13.5-17.5); Mean Corpuscular Hemoglobin 30.5 pg (28.0-32.0); Mean Corpuscular Volume 89.1 fL (80.0-100.0); Nucleated Red Blood Cells % 0.0 %
[2025-01-27 02:26] LABS: Alanine Aminotransferase 13 U/L (7-40); Albumin 3.8 g/dL (3.2-4.8); Alkaline Phosphatase 95 U/L (46-116); Anion Gap 12 (5-15); BUN/Creatinine Ratio 6.0 (10.0-20.0); Bilirubin, Total 0.2 mg/dL (0.2-1.0); Blood Urea Nitrogen 47 mg/dL (9-23); Calcium 9.0 mg/dL (8.7-10.4); Carbon Dioxide 21 mmol/L (20-31); Chloride 110 mmol/L (98-107); Glucose 115 mg/dL (74-106); Potassium 5.5 mmol/L (3.5-5.1); Sodium 143 mmol/L (136-145); Total Protein 6.4 g/dL (5.7-8.2)
--- NOTE | 2025-01-27 02:34 | DVH ---
CHEST RADIOGRAPH Indication: Seizure Technique: Single frontal view of the chest was obtained COMPARISON: XY CHEST PORTABLE on DOS: 01/09/25, XY CHEST PORTABLE on DOS: 12/26/24, XY CHEST XRAY 1 VIEW on DOS: 12/21/24, XY CHEST PORTABLE on DOS: 11/16/24, XY CHEST XRAY 1 VIEW on DOS: 10/28/24 FINDINGS: Lines and Tubes: Right PermCath tip projects over the cavoatrial junction. Lungs: Clear Pleura: No effusion. No pneumothorax. Cardiomediastinal contours: Unremarkable Bones: Unremarkable IMPRESSION: 1. No radiographic evidence of acute cardiopulmonary abnormality. 2. Right PermCath.
--- NOTE | 2025-01-27 02:36 | DVH ---
EXAM: CT HEAD WITHOUT CONTRAST INDICATION: seizure, htn TECHNIQUE: CT of the head without intravenous contrast. Radiation Dose : 1. Head: CT Dose: CTDI volume is 53.73 mGy. Dose-length product is 1078.08 mGy*cm The dose indicators for CT are the volume Computed Tomography (CT) Dose Index (CTDIvol) and the Dose Length Product (DLP), and are measured in units of mGy and mGy-cm, respectively. These indicators are not patient dose, but values generated from the CT scanner acquisition factors. The report includes radiation exposure data for exposures received during this examination. COMPARISON: MRI BRAIN HEAD WO CONTRAST on DOS: 09/22/24, CT HEAD WITHOUT CONTRAST on DOS: 09/16/24, CT HEAD WITHOUT CONTRAST on DOS: 09/11/24, CT HEAD WITHOUT CONTRAST on DOS: 08/15/24, CT CERVICAL WITHOUT CONTRAST on DOS: 08/15/24 FINDINGS: There is no evidence of acute intracranial hemorrhage, extra-axial collection, mass effect, midline shift, herniation or hydrocephalus. The ventricles, sulci and cisterns are age appropriate. The bruno-white differentiation is intact. Patchy periventricular and subcortical white matter hypoattenuation is nonspecific but may be related to small vessel ischemic disease. The visualized paranasal sinuses and mastoid air cells are clear. The surrounding soft tissues and osseous structures are unremarkable. IMPRESSION: 1. No acute intracranial abnormality. Radiation optimization: All CT scans at this facility use at least one of these dose optimization techniques: automated exposure control mA and/or kV adjustment per patient size (includes targeted exams where dose is matched to clinical indication) or iterative reconstruction.
--- NOTE | 2025-01-27 02:41 | DVH ---
Exam: CT CT AB PEL WO CON-NO ORAL OR IV History: diarrhea Comparison Study: XY CHEST PORTABLE on DOS: 01/27/25, XY CHEST PORTABLE on DOS: 01/09/25, XY CHEST PORTABLE on DOS: 12/26/24, XY CHEST XRAY 1 VIEW on DOS: 12/21/24, XY CHEST PORTABLE on DOS: 11/16/24 Technique: Multidetector spiral CT of the abdomen was performed from lung bases to pubic symphysis. Imaging was performed without IV contrast. Axial, coronal and sagittal multiplanar reformats were obtained from the axial data set by the technologist. Radiation Dose : 1. Abdomen/Pelvis: CTDIvol 21.32 mGy, DLP 1436.47 mGy*cm. Findings: Evaluation of solid organs is limited due to lack of intravenous contrast use. Lung Bases: No acute or significant lung base finding. Normal heart size. No pleural or pericardial effusion. Right PermCath terminates at the cavoatrial junction. Liver: The liver is normal in size. No focal lesions. Gallbladder and Biliary Tree: 2.8 cm calcified gallstone just distal to the neck of the gallbladder. Spleen: Unremarkable Pancreas: The pancreas is grossly normal in appearance. Adrenal Glands: Unremarkable Kidneys: Kidneys are grossly normal without calculi or hydronephrosis. Bladder: Grossly unremarkable for degree of distention. Bowel: The stomach is grossly normal in appearance. Small bowel and colon are normal in caliber and distribution. The appendix is not visualized; however, no secondary findings of acute appendicitis identified. Ascites: Absent Lymphadenopathy: No mesenteric, retroperitoneal or periportal lymphadenopathy. Abdominal Wall and Mesentery: Unremarkable. Vasculature: The visualized abdominal aorta is normal in size and caliber. Minimal Atherosclerotic vascular calcifications. Evaluation of abdominal and pelvic vessels is limited due to lack of intravenous contrast. Pelvic Organs: Unremarkable Musculoskeletal: No aggressive focal bony lesions, acute fractures or dislocation. IMPRESSION: 1. No acute abdominal or pelvic findings. 2. Cholelithiasis. Radiation optimization: All CT scans at this facility use at least one of these dose optimization techniques: automated exposure control mA and/or kV adjustment per patient size (includes targeted exams where dose is matched to clinical indication) or iterative reconstruction.
[2025-01-27] MEDS: hydrALAZINE HCL 20 MG/ML VL IV ONE (02:44)
[2025-01-27] MEDS ORDERED: DEXTROSE (50%) 50ML SYRG IV PRN (03:00)
[2025-01-27] MEDS ORDERED: ACETAMINOPHEN 325 MG TAB PO PRN (03:00)
[2025-01-27] MEDS ORDERED: DOCUSATE SOD 100 MG CAP PO PRN (03:00)
--- NOTE | 2025-01-27 03:12 | DVHHP2 ---
History of Present Illness Reason for Visit: Breakthrough seizure History of Present Illness The patient is a 54-year-old male with past medical history of CHF, DM, end- stage renal disease on hemodialysis , seizures, and hypertension presented to [facility] ED with complaint of seizures. Patient has no recollec tion of what happened, possibly had a seizure. Patient has been off his Keppra for the past 2 days, since he was told that he was taking too much Keppra. Patient states he was at [facility] 2 days ago where he had dialysis for 3 consecutive days. Patient arrives hypertensive systolic blood pressure greater than 200. Patient was seen and evaluated in the ED, laboratory data shows WBC 9.4, hemoglobin 11.2, hematocrit 32.7, platelets 262, sodium 143, potassium 5.5, BUN 47, creatinine 7.79, GFR 8, glucose 115, calcium 9.0, troponin 16, BNP 579.08, blood pressure 213/111 trending down to 153/86, heart rate 102, temperature 98.4 F, O2 saturation 98% on room air. Head CT showed no acute intracranial abnormality. Please see medication orders section in the computer. On my assessment, patient denied chest pain, no headache, dizziness, diaphoresis, shortness of breaths, no diarrhea, nausea, vomiting, fever, no chills. Patient was admitted for further evaluation and medical management. Past Medical History CHF, DM, ESRD, HTN, Seizures Past Surgical History Right PermCath for hemodialysis Family History Reviewed, noncontributory to the management of this case. Past Social History The patient lives at home, denies smoking, alcohol or illicit drugs abuse. Review of Systems Constitutional: Yes: Weakness; No: Fever, Chills, Sweats, Malaise, Other Eyes: No: Pain, Vision change, Conjunctivae inflammation, Eyelid inflammation, Other, Redness ENT: No: Ear pain, Ear discharge, Nose pain, Nose discharge, Nose congestion, Mouth pain, Mouth swelling, Throat pain, Throat swelling, Other Respiratory: No: Cough, Dry, Shortness of breath, SOB with excertion, Wheezing, Hemoptysis, Pleuritic Pain, Sputum, Wheezing, Other Cardiovascular: Other (Right PermCath); No: Chest Pain, Palpitations, Orthopnea, Paroxysmal Noc. Dyspnea, Edema, Lt Headedness Gastrointestinal: No: Nausea, Vomiting, Abdominal Pain, Diarrhea, Constipation, Melena, Hematochezia, Other Genitourinary: No Dysuria, No Frequency, No Incontinence, No Hematuria, No Retention; Other (On hemodialysis) Musculoskeletal: No: other, neck pain, shoulder pain, arm pain, back pain, hand pain, leg pain, foot pain Skin: No: Rash, Lesions, Jaundice, Bruising, Other Neurological: Seizures; No: Weakness, Numbness, Incoordination, Change in speech, Confusion, Other Allergies: Coded Allergies: Aspirin (Verified Allergy, Unknown, 01/27/25) Azithromycin (Verified Allergy, Unknown, 01/27/25) Penicillins (Verified Allergy, Unknown, 01/27/25) Medications Current Medications Medications Dose Ordered Sig/Misty Route Start Time Stop Time Status Last Admin Dose Admin Levetiracetam 100 ml @ 400 mls/hr BID IV 01/27/25 10:00 Amlodipine Besylate 5 mg DAILY PO 01/27/25 10:00 Carvedilol 12.5 mg Q12HR PO 01/27/25 10:00 Hydralazine HCl 10 mg Q6HP PRN IV 01/27/25 03:00 Multivit/Ca Carb/ B Cmplx/FA/Prenat 1 tab DAILY PO 01/27/25 10:00 Sevelamer HCl 800 mg TIDWM PO 01/27/25 08:00 Diagnostic Test (Pha) 1 strip ACHS 01/27/25 07:00 Insulin Human Regular ACHS SC 01/27/25 07:00 Dextrose 50 ml UD PRN IV 01/27/25 03:00 Sodium Chloride 10 ml Q8HR IV 01/27/25 06:00 Acetaminophen/ Hydrocodone Bitart 1 tab Q4HP PRN PO 01/27/25 03:00 Ondansetron HCl 4 mg Q4HP PRN IV 01/27/25 03:00 Docusate Sodium 100 mg BIDPRN PRN PO 01/27/25 03:00 Acetaminophen 650 mg Q6HP PRN PO 01/27/25 03:00 Apixaban 2.5 mg BID PO 01/27/25 10:00 Exam Vital Signs Vital Signs Date Time Temp Pulse Resp B/P (MAP) Pulse Ox O2 Delivery O2 Flow Rate FiO2 01/27/25 02:44 195/106 01/27/25 01:46 Room Air* 0 21 01/27/25 00:58 98.4 102 20 98 98.4 General Appearance: Alert, Oriented X3, Cooperative, No acute distress HEENT: Atraumatic, PERRLA, EOMI, Mucous membr. moist/pink Respiratory: Normal air movement Cardiovascular: Regular rate, Normal S1, Normal S2, No murmurs Abdominal: Normal bowel sounds, Soft, No tenderness, No hepatospenomegaly, No masses Extremities: No clubbing, No cyanosis, No edema, Normal pulses, No tenderness/swelling Skin: No rashes, No significant lesion Neuro: Normal speech, Normal tone, Sensation intact, Cranial nerves 3-12 NL, Reflexes 2+, Other (Generalized weakness) Psych/Mental Status: Mental status NL, Mood NL Labs/Xrays Labs Test 01/27/25 03:03 01/27/25 01:59 Range/Units White Blood Count 9.4 4.4-10.8 10^3/uL Red Blood Count 3.66 L 4.5-5.90 10^6/uL Hemoglobin 11.2 L 13.5-17.5 g/dL Hematocrit 32.7 L 41.0-53.0 % Mean Corpuscular Volume 89.1 80.0-100.0 fL Mean Corpuscular Hemoglobin 30.5 28.0-32.0 pg Mean Corpuscular Hemoglobin Concent 34.2 32.0-36.0 g/dL Red Cell Distribution Width 13.4 11.8-14.3 % Platelet Count 262 140-450 10^3/uL Mean Platelet Volume 7.5 6.9-10.8 fL Neutrophils (%) (Auto) 66.0 37.0-80.0 % Lymphocytes (%) (Auto) 20.5 10.0-50.0 % Monocytes (%) (Auto) 8.8 0.0-12.0 % Eosinophils (%) (Auto) 4.1 0.0-7.0 % Basophils (%) (Auto) 0.6 0.0-2.0 % Neutrophils # (Auto) 6.2 1.6-8.6 10 ^3/uL Lymphocytes # (Auto) 1.9 0.4-5.4 10 ^3/uL Monocytes # (Auto) 0.8 0-1.3 10 ^3/uL Eosinophils # (Auto) 0.4 0-0.8 10 ^3/uL Basophils # (Auto) 0.1 0-0.2 10 ^3/uL Nucleated Red Blood Cells 0.0 % Sodium Level 143 136-145 mmol/L Potassium Level 5.5 H 3.5-5.1 mmol/L Chloride Level 110 H 98-107 mmol/L Carbon Dioxide Level 21 20-31 mmol/L Anion Gap 12 5-15 Blood Urea Nitrogen 47 H 9-23 mg/dL Creatinine 7.79 H 0.700-1.30 mg/dL Glomerular Filtration Rate Calc 8 >90 mL/min BUN/Creatinine Ratio 6.0 L 10.0-20.0 Serum Glucose 115 H 74-106 mg/dL Lactic Acid Level 0.7 0.4-2.0 mmol/L Calcium Level 9.0 8.7-10.4 mg/dL Total Bilirubin 0.2 0.2-1.0 mg/dL Aspartate Amino Transferase (AST) 17 13-40 U/L Alanine Aminotransferase (ALT) 13 7-40 U/L Alkaline Phosphatase 95 46-116 U/L Total Protein 6.4 5.7-8.2 g/dL Albumin 3.8 3.2-4.8 g/dL PATIENT: ASHELY ZELAYA ACCT: [id number] UNIT: [id number] : 1970 LOC: ER ROOM / BED: / AGE / SEX: 54 / M ADM STATUS: REG ER SERVICE 0141 ORDERING PHYSICIAN: TATY LEAL DO PROCEDURE(s): ABPL - CT AB PEL WO CON-NO ORAL OR IV REASON: diarrhea ORDER NUMBER(s): [id number], ACCESSION NUMBER(s): [id number] Exam: CT CT AB PEL WO CON-NO ORAL OR IV History: diarrhea Comparison Study: XY CHEST PORTABLE on DOS: 01/27/25, XY CHEST PORTABLE on DOS: 01/09/25, XY CHEST PORTABLE on DOS: 12/26/24, XY CHEST XRAY 1 VIEW on DOS: , XY CHEST PORTABLE on DOS: 11/16/24 Technique: Multidetector spiral CT of the abdomen was performed from lung bases to pubic symphysis. Imaging was performed without IV contrast. Axial, coronal and sagittal multiplanar reformats were obtained from the axial data set by the technologist. Radiation Dose: 1. Abdomen/Pelvis: CTDIvol 21.32 mGy, DLP 1436.47 mGy*cm. Findings: Evaluation of solid organs is limited due to lack of intravenous contrast use. Lung Bases: No acute or significant lung base finding. Normal heart size. No pleural or pericardial effusion. Right PermCath terminates at the cavoatrial junction. Liver: The liver is normal in size. No focal lesions. Gallbladder and Biliary Tree: 2.8 cm calcified gallstone just distal to the neck of the gallbladder. Spleen: Unremarkable Pancreas: The pancreas is grossly normal in appearance. Adrenal Glands: Unremarkable Kidneys: Kidneys are grossly normal without calculi or hydronephrosis. Bladder: Grossly unremarkable for degree of distention. Bowel: The stomach is grossly normal in appearance. Small bowel and colon are normal in caliber and distribution. The appendix is not visualized; however, no secondary findings of acute appendicitis identified. Ascites: Absent Lymphadenopathy: No mesenteric, retroperitoneal or periportal lymphadenopathy. Abdominal Wall and Mesentery: Unremarkable. Vasculature: The visualized abdominal aorta is normal in size and caliber. Minimal Atherosclerotic vascular calcifications. Evaluation of abdominal and pelvic vessels is limited due to lack of intravenous contrast. Pelvic Organs: Unremarkable Musculoskeletal: No aggressive focal bony lesions, acute fractures or dislocation. IMPRESSION: 1. No acute abdominal or pelvic findings. 2. Cholelithiasis. ORDERING PHYSICIAN: TATY LEAL DO PROCEDURE(s): HWOCT - HEAD WITHOUT CONTRAST REASON: seizure, htn ORDER NUMBER(s): [id number], ACCESSION NUMBER(s): [id number] EXAM: CT HEAD WITHOUT CONTRAST INDICATION: seizure, htn TECHNIQUE: CT of the head without intravenous contrast. Radiation Dose: 1. Head: CT Dose: CTDI volume is 53.73 mGy. Dose-length product is 1078.08 mGy*cm The dose indicators for CT are the volume Computed Tomography (CT) Dose Index (CTDIvol) and the Dose Length Product (DLP), and are measured in units of mGy and mGy-cm, respectively. These indicators are not patient dose, but values generated from the CT scanner acquisition factors. The report includes radiation exposure data for exposures received during this examination. COMPARISON: MRI BRAIN HEAD WO CONTRAST on DOS: 09/22/24, CT HEAD WITHOUT CONTRAST on DOS: 09/16/24, CT HEAD WITHOUT CONTRAST on DOS: 09/11/24, CT HEAD WITHOUT CONTRAST on DOS: 08/15/24, CT CERVICAL WITHOUT CONTRAST on DOS: 08/15/24 FINDINGS: There is no evidence of acute intracranial hemorrhage, extra-axial collection, mass effect, midline shift, herniation or hydrocephalus. The ventricles, sulci and cisterns are age appropriate. The bruno-white differentiation is intact. Patchy periventricular and subcortical white matter hypoattenuation is nonspecific but may be related to small vessel ischemic disease. The visualized paranasal sinuses and mastoid air cells are clear. The surrounding soft tissues and osseous structures are unremarkable. IMPRESSION: 1. No acute intracranial abnormality. ORDERING PHYSICIAN: TATY LEAL DO PROCEDURE(s): CXRP - CHEST PORTABLE REASON: Seizure ORDER NUMBER(s): [id number], ACCESSION NUMBER(s): [id number] CHEST RADIOGRAPH Indication: Seizure Technique: Single frontal view of the chest was obtained COMPARISON: XY CHEST PORTABLE on DOS: 01/09/25, XY CHEST PORTABLE on DOS: 12/26/24, XY CHEST XRAY 1 VIEW on DOS: 12/21/24, XY CHEST PORTABLE on DOS: 11/16/24, XY CHEST XRAY 1 VIEW on DOS: 10/28/24 FINDINGS: Lines and Tubes: Right PermCath tip projects over the cavoatrial junction. Lungs: Clear Pleura: No effusion. No pneumothorax. Cardiomediastinal contours: Unremarkable Bones: Unremarkable IMPRESSION: 1. No radiographic evidence of acute cardiopulmonary abnormality. 2. Right PermCath. SEPSIS Sepsis Screen Date sepsis recognized/suspect: Jan 27, 2025 Time Sepsis recognized/suspect: 0146 Recent Procedure: No On Antibiotic Therapy: No Respiratory Rate >20: No Heart Rate >90: No Temp<36 C (96.8 F) or >38.3 C: No SBP <90 or MAP <65 mmHG: No New Acute Mental Status Change: No Is the patient on CPAP, BIPAP,: No Physician Orders Director Of Labor And Delivery (01/27/25 ) Chest Portable (01/27/25 01:29) Electrocardigram (01/27/25 01:29) Seizure Precautions (01/27/25 ) Levetiracetam (Keppra) (01/27/25 01:29) Troponin-I Hs (01/27/25 02:31) Troponin-I Hs (01/27/25 04:31) Ct Ab Pel Wo Con-No Oral Or Iv (01/27/25 01:41) Head Without Contrast (01/27/25 01:50) Complete Blood Count (01/27/25 04:00) Comprehensive Metabolic Panel (01/27/25 04:00) Levetiracetam 500 Mg/100ml (Levetiraceta (01/27/25 10:00) Consistent Carb(Ccho)Diabetes (01/27/25 Breakfast) Amlodipine Tablet (Norvasc Tablet) (01/27/25 10:00) Carvedilol Tablet (Coreg Tablet) (01/27/25 10:00) *[facility] (01/27/25 02:48) Hydralazine Injection (Apresoline Inject (01/27/25 03:00) B-Complex W/ C & Folic Tablet (Nephro-Vi (01/27/25 10:00) Sevelamer (Renagel) (01/27/25 08:00) Glucose Blood (Accu-Chek Comfort Curve T (01/27/25 07:00) Insulin R (Human) (Insulin R) (01/27/25 07:00) Dextrose 50% Syringe (01/27/25 03:00) Allergies (01/27/25 02:48) Code Status (01/27/25 02:48) Renal Standard(2gna,3gk,Lopho) (01/27/25 Breakfast) Sodium Chloride Lock (Saline Lock Ns) (01/27/25 06:00) Oxygen Per Hour (01/27/25 02:48) Hydrocodone-Acet 5/325mg Tab ([place] 5/32 (01/27/25 03:00) Ondansetron Hcl (Zofran) (01/27/25 03:00) Docusate Sodium Capsule (Colace Capsule) (01/27/25 03:00) Fall Risk Precautions In Place QSHIFT (01/27/25 02:48) Complete Blood Count (01/28/25 04:00) Comprehensive Metabolic Panel (01/28/25 04:00) Echo 2d Mode Cardiac Dop (01/27/25 02:48) Condition: Serious (01/27/25 02:48) Acetaminophen Tablet (Tylenol Tablet) (01/27/25 03:00) Maintain Bed Rest (01/27/25 02:48) Sequential Compression Device (01/27/25 ) Apixaban (Eliquis) (01/27/25 10:00) Albuterol Medneb (Ventolin Medneb) (01/27/25 03:15) Furosemide Injection (Lasix Injection) (01/27/25 03:15) B-Type Natriuretic Peptide (01/27/25 03:08) Vital Signs Date Time Temp Pulse Resp B/P (MAP) Pulse Ox O2 Delivery O2 Flow Rate FiO2 01/27/25 02:44 195/106 01/27/25 01:46 Room Air* 0 21 01/27/25 00:58 98.4 102 20 213/111 98 98.4 Laboratory Tests Test 01/27/25 01:59 Lactic Acid Level 0.7 mmol/L (0.4-2.0) White Blood Count 9.4 10^3/uL (4.4-10.8) Medications Medications Dose Ordered Sig/Misty Route Start Time Stop Time Status Last Admin Dose Admin Hydralazine HCl 5 mg ONCE ONCE IV 01/27/25 02:00 01/27/25 02:01 DC 01/27/25 02:44 5 MG Assessment/Plan Assessment/Plan Breakthrough seizure Hyperkalemia ESRD on hemodialysis Hypertensive crisis Generalized weakness Plan 1. Admit to telemetry unit 2. Breathing treatment 3. Pain control management 4. Management of fluids and electrolytes 5. Consultation for Nephrology/hospitalist 6. Diagnostic tests chest x-ray 7. DVT prophylaxis on SCDs 8. Repeat labs CBC, CMP in a.m. 9. Continue with current medical management 10. Treatment plan discussed with patient and RN. Patient verbalized understanding. Plan discussed with: Patient, Other (RN) My Orders Orders - JUSTIN AL DNP Procedure Category Date Status Time Complete Blood Count LAB 01/27/25 Logged 04:00 Comprehensive LAB 01/27/25 Logged Metabolic Panel 04:00 Levetiracetam 500 PHA 01/27/25 In Process Mg/100ml (Levetiraceta 10:00 Consistent DIET 01/27/25 Transmitted Carb(Ccho)Diabetes Breakfast Amlodipine Tablet PHA 01/27/25 In Process (Norvasc Tablet) 10:00 Carvedilol Tablet PHA 01/27/25 In Process (Coreg Tablet) 10:00 *[facility] CONS 01/27/25 Transmitted -[place] 02:48 Hydralazine Injection PHA 01/27/25 In Process (Apresoline Inject 03:00 B-Complex W/ C & PHA 01/27/25 In Process Folic Tablet 10:00 Sevelamer (Renagel) PHA 01/27/25 In Process 08:00 Glucose Blood PHA 01/27/25 In Process (Accu-Chek Comfort 07:00 Insulin R (Human) PHA 01/27/25 In Process (Insulin R) 07:00 Dextrose 50% Syringe PHA 01/27/25 In Process 03:00 Allergies YOLY 01/27/25 In Process 02:48 Code Status CODE 01/27/25 Transmitted 02:48 Renal DIET 01/27/25 Transmitted Standard(2gna,3gk,Lopho) Breakfast Sodium Chloride Lock PHA 01/27/25 In Process (Saline Lock Ns) 06:00 Oxygen Per Hour RT 01/27/25 Transmitted 02:48 Hydrocodone-Acet PHA 01/27/25 In Process 5/325mg Tab ([place] 03:00 Ondansetron Hcl PHA 01/27/25 In Process (Zofran) 03:00 Docusate Sodium PHA 01/27/25 In Process Capsule (Colace 03:00 Fall Risk Precautions YOLY 01/27/[address] 02:48 Complete Blood Count LAB 01/28/25 Verified 04:00 Comprehensive LAB 01/28/25 Verified Metabolic Panel 04:00 Echo 2d Mode Cardiac US 01/27/25 Logged DOP 02:48 Condition: Serious YOLY 01/27/25 In Process 02:48 Acetaminophen Tablet PHA 01/27/25 In Process (Tylenol Tablet) 03:00 Maintain Bed Rest YOLY 01/27/25 In Process 02:48 Sequential YOLY 01/27/25 In Process Compression Device Apixaban (Eliquis) PHA 01/27/25 In Process 10:00 B-Type Natriuretic LAB 01/27/25 Logged Peptide 03:08 Problem List: (1) Breakthrough seizure (2) Hyperkalemia (3) ESRD on hemodialysis (4) Hypertensive crisis (5) Generalized weakness Date of Service: Jan 27, 2025 Billing Provider: JUSTIN AL DNP Common Visit Codes: [id number] INP/OBS CARE (HIGH) JUSTIN AL DNP Jan 27, 2025 03:12
[2025-01-27] MEDS ORDERED: NITROGLYCERIN 0.4 MG SL TAB SL PRN (03:15)
[2025-01-27] MEDS ORDERED: MORPHINE SULFATE INJ 2 MG/ml SYRG IV PRN (03:15)
[2025-01-27] MEDS: ALBUTEROL SULF 2.5 MG/0.5ML(0.5%) NEB SOLN NEB ONE (03:23)
[2025-01-27] MEDS: SODIUM ZIRCONIUM CYCL 10 GM PAK PO ONE ×2 (03:26→10:45)
[2025-01-27] MEDS: levETIRAcetam 500 mg/100ml 100 ML IV ONE (03:26)
[2025-01-27] MEDS: FUROSEMIDE 40 MG/4 ML VIAL IV ONE (04:30)
[2025-01-27] MEDS: hydrALAZINE HCL 20 MG/ML VL IV PRN (04:39)
[2025-01-27] MEDS: SODIUM CHLOR 0.9% PF (SALINE LOCK) 10ML VIAL/SYR IV SCH (06:05)
[2025-01-27 06:21] LABS: Hematocrit 31.9 % (41.0-53.0); Hemoglobin 10.9 g/dL (13.5-17.5); Mean Corpuscular Hemoglobin 30.8 pg (28.0-32.0); Mean Corpuscular Volume 90.2 fL (80.0-100.0); Nucleated Red Blood Cells % 0.1 %
[2025-01-27 06:39] LABS: Alanine Aminotransferase 11 U/L (7-40); Albumin 3.7 g/dL (3.2-4.8); Alkaline Phosphatase 94 U/L (46-116); Anion Gap 15 (5-15); BUN/Creatinine Ratio 5.4 (10.0-20.0); Potassium 4.9 mmol/L (3.5-5.1); Sodium 144 mmol/L (136-145); Total Protein 6.2 g/dL (5.7-8.2)
[2025-01-27 06:40] LABS: Carbon Dioxide 19 mmol/L (20-31); Chloride 110 mmol/L (98-107)
[2025-01-27 06:41] LABS: Bilirubin, Total 0.2 mg/dL (0.2-1.0); Blood Urea Nitrogen 43 mg/dL (9-23); Calcium 8.7 mg/dL (8.7-10.4); Glucose 120 mg/dL (74-106)
[2025-01-27] MEDS: InsuLIN REG 1unit/0.01ml Soln (100units/ml) SC SCH (07:00)
[2025-01-27] MEDS: ACCU-CHEK COMFORT CURVE STRIP VI SCH (07:04)
[2025-01-27 07:30] VITALS: PULSE 96; RESP 12; O2SAT 97
[2025-01-27 08:19] VITALS: BP 131/64; PULSE 96; RESP 16; TEMP 97.9; O2SAT 96
[2025-01-27] MEDS: SEVELAMER 800 MG TAB PO SCH (09:03)
[2025-01-27] MEDS: B-COMPLEX W/ C & FOLIC ACID(NEPHROVITE TAB) PO SCH (09:17)
[2025-01-27] MEDS: CARVEDILOL 12.5 MG TAB PO SCH (09:19)
[2025-01-27] MEDS: APIXABAN 2.5 MG TAB PO SCH (09:19)
[2025-01-27] MEDS: HYDROcodone-ACET 5/325MG TAB PO PRN (09:21)
[2025-01-27] MEDS: levETIRAcetam 500 mg/100ml 100 ML IV SCH (09:22)
--- NOTE | 2025-01-27 10:43 | DVHINCON2 ---
Date of service: Jan 27, 2025 Referring Physician Sergo Tellez, nurse practitioner Reason for Consultation End-stage renal disease to manage hemodialysis History of Present Illness Patient is a 54-year-old male with past medical history significant for end- stage renal disease on hemodialysis, Diabetes, congestive heart failure, seizures, blind, and wheelchair bound is admitted for breakthrough seizure. On admission Nephrology is consulted to manage his hemodialysis Past Medical History Diabetes, congestive heart failure, end stage renal disease on hemodialysis, seizures, blind, wheelchair bound Past Surgical History Right IJ tunneled hemodialysis catheter Allergies: Coded Allergies: Aspirin (Verified Allergy, Unknown, 01/27/25) Azithromycin (Verified Allergy, Unknown, 01/27/25) Penicillins (Verified Allergy, Unknown, 01/27/25) Current Medications Current Medications Medications (Trade) Dose Ordered Sig/Misty Route PRN Reason Start Time Stop Time Status Last Admin Levetiracetam 100 ml @ 400 mls/hr BID IV 01/27/25 10:00 01/27/25 09:22 Amlodipine Besylate (Norvasc Tablet) 5 mg DAILY PO 01/27/25 10:00 01/27/25 09:20 Carvedilol (Coreg Tablet) 12.5 mg Q12HR PO 01/27/25 10:00 01/27/25 09:19 Hydralazine HCl (Apresoline Injection) 10 mg Q6HP PRN IV SBP>150 01/27/25 03:00 01/27/25 04:39 Multivit/Ca Carb/ B Cmplx/FA/Prenat (Nephro-Ruthann Tablet) 1 tab DAILY PO 01/27/25 10:00 01/27/25 09:17 Sevelamer HCl (Renagel) 800 mg TIDWM PO 01/27/25 08:00 01/27/25 12:00 Diagnostic Test (Pha) (Accu-Chek Comfort Curve T) 1 strip ACHS 01/27/25 07:00 01/27/25 11:30 Insulin Human Regular (InsuLIN R) ACHS SC 01/27/25 07:00 01/27/25 13:26 Dextrose 50 ml UD PRN IV Blood Sugar LESS THAN 60 01/27/25 03:00 Sodium Chloride (Saline Lock Ns) 10 ml Q8HR IV 01/27/25 06:00 01/27/25 13:32 Acetaminophen/ Hydrocodone Bitart ([place] 5/325MG Tab) 1 tab Q4HP PRN PO MODERATE PAIN (4-6 PAIN SCALE) 01/27/25 03:00 01/27/25 09:21 Ondansetron HCl (Zofran) 4 mg Q4HP PRN IV NAUSEA / VOMITING 01/27/25 03:00 Docusate Sodium (Colace Capsule) 100 mg BIDPRN PRN PO FOR CONSTIPATION 01/27/25 03:00 Acetaminophen (Tylenol Tablet) 650 mg Q6HP PRN PO PAIN SCALE 1-3 OR TEMP>100.4 01/27/25 03:00 Apixaban (Eliquis) 2.5 mg BID PO 01/27/25 10:00 Nitroglycerin (Ntrostat Sublingual) 0.4 mg Q5MINP PRN SL FOR CHEST PAIN 01/27/25 03:15 Morphine Sulfate 2 mg Q30M PRN IV FOR CHEST PAIN 01/27/25 03:15 H&P Exam Vital Signs/I&O Vital Sign Date Time Temp Pulse Resp B/P (MAP) Pulse Ox O2 Delivery O2 Flow Rate FiO2 01/27/25 13:16 93 14 153/86 (108) 97 01/27/25 08:51 97.9 97.9 01/27/25 07:30 Room Air* 0 21 Intake and Output 01/26/25 01/27/25 19:00 07:00 Intake Total 100 ml Balance 100 ml Intake IV Total 100 ml Labs/Diagnostic Data Labs/Diagnostic Data Laboratory Tests Test 01/27/25 13:09 01/27/25 05:21 01/27/25 03:03 01/27/25 01:59 Range/Units POC Glucose 153 H 70-106 mg/dl White Blood Count 11.0 H 9.4 4.4-10.8 10^3/uL Red Blood Count 3.53 L 3.66 L 4.5-5.90 10^6/uL Hemoglobin 10.9 L 11.2 L 13.5-17.5 g/dL Hematocrit 31.9 L 32.7 L 41.0-53.0 % Mean Corpuscular Volume 90.2 89.1 80.0-100.0 fL Mean Corpuscular Hemoglobin 30.8 30.5 28.0-32.0 pg Mean Corpuscular Hemoglobin Concent 34.2 34.2 32.0-36.0 g/dL Red Cell Distribution Width 14.0 13.4 11.8-14.3 % Platelet Count 246 262 140-450 10^3/uL Mean Platelet Volume 7.1 7.5 6.9-10.8 fL Neutrophils (%) (Auto) 67.5 66.0 37.0-80.0 % Lymphocytes (%) (Auto) 20.7 20.5 10.0-50.0 % Monocytes (%) (Auto) 7.8 8.8 0.0-12.0 % Eosinophils (%) (Auto) 3.6 4.1 0.0-7.0 % Basophils (%) (Auto) 0.4 0.6 0.0-2.0 % Neutrophils # (Auto) 7.4 6.2 1.6-8.6 10 ^3/uL Lymphocytes # (Auto) 2.3 1.9 0.4-5.4 10 ^3/uL Monocytes # (Auto) 0.9 0.8 0-1.3 10 ^3/uL Eosinophils # (Auto) 0.4 0.4 0-0.8 10 ^3/uL Basophils # (Auto) 0 0.1 0-0.2 10 ^3/uL Nucleated Red Blood Cells 0.1 0.0 % Sodium Level 144 143 136-145 mmol/L Potassium Level 4.9 5.5 H 3.5-5.1 mmol/L Chloride Level 110 H 110 H 98-107 mmol/L Carbon Dioxide Level 19 L 21 20-31 mmol/L Anion Gap 15 12 5-15 Blood Urea Nitrogen 43 H 47 H 9-23 mg/dL Creatinine 7.92 H 7.79 H 0.700-1.30 mg/dL Glomerular Filtration Rate Calc 7 8 >90 mL/min BUN/Creatinine Ratio 5.4 L 6.0 L 10.0-20.0 Serum Glucose 120 H 115 H 74-106 mg/dL Calcium Level 8.7 9.0 8.7-10.4 mg/dL Phosphorus Level 7.9 H 2.4-5.1 mg/dL Magnesium Level 1.9 1.6-2.6 mg/dL Total Bilirubin 0.2 0.2 0.2-1.0 mg/dL Aspartate Amino Transferase (AST) 15 17 13-40 U/L Alanine Aminotransferase (ALT) 11 13 7-40 U/L Alkaline Phosphatase 94 95 46-116 U/L Creatine Kinase 235 H 46-171 U/L Troponin I High Sensitivity 18 17 16 </=54 ng/L Total Protein 6.2 6.4 5.7-8.2 g/dL Albumin 3.7 3.8 3.2-4.8 g/dL Vitamin D 25-Hydroxy 19.6 L 30.0-100 ng/mL Parathyroid Hormone (Intact) 346.3 H 18.4-80.1 pg/mL Hepatitis B Surface Antigen Negative Negative Lactic Acid Level 0.7 0.4-2.0 mmol/L B-Type Natriuretic Peptide 579.08 0-100 pg/mL Assessment End-stage renal disease on hemodialysis Seizure disorder Hypertension Diabetes mellitus type 2 Chronic diastolic Congestive heart failure Blindness Wheelchair-bound Anemia of chronic kidney disease Recommendations Hemodialysis tomorrow Epogen [id number] subQ 3 times weekly Strict I&Os Renal diet Resume home medication Blood pressure control Insulin sliding scale Neurology consult We will continue to follow Patient seen and examined by myself in the ER. I discussed my plan of care with the patient and primary nurse at the bedside I would like to thank Sergo for the consult, will follow up Plan discussed with: Patient ARTEMIO DENNISON MD Jan 27, 2025 10:43
[2025-01-27 11:36] LABS: Magnesium 1.9 mg/dL (1.6-2.6)
[2025-01-27 11:40] LABS: Creatine Kinase IFCC 235.0 U/L (46-171)
--- NOTE | 2025-01-27 17:38 | DVHPN2 ---
Reviewed: H&P Changes from previous H/P or p: No Changes General: Per HPI Eyes: No Pain, No Vision change, No Conjunctivae inflammation, No Eyelid inflammation, No Other, No Redness ENT: No Ear pain, No Ear discharge, No Nose pain, No Nose discharge, No Nose congestion, No Mouth pain, No Mouth swelling, No Throat pain, No Throat swelling, No Other Cardiovascular: No Chest Pain, No Palpitations, No Orthopnea, No Paroxysmal Noc. Dyspnea, No Edema, No Lt Headedness; Other (Right PermCath) Respiratory: No Cough, No Dry, No Shortness of breath, No SOB with excertion, No Wheezing, No Hemoptysis, No Pleuritic Pain, No Sputum, No Other Gastrointestinal: No Nausea, No Vomiting, No Abdominal Pain, No Diarrhea, No Constipation, No Melena, No Hematochezia, No Other Genitourinary: No Dysuria, No Frequency, No Incontinence, No Hematuria, No Retention; Other (On hemodialysis) Musculoskeletal: No other, No neck pain, No shoulder pain, No arm pain, No back pain, No hand pain, No leg pain, No foot pain Skin: No Rash, No Lesions, No Jaundice, No Bruising, No Other Objective Vitals Vital Signs Date Time Temp Pulse Resp B/P (MAP) Pulse Ox O2 Delivery O2 Flow Rate FiO2 01/27/25 15:00 98.0 84 13 148/81 (103) 98 98.0 01/27/25 13:33 Room Air* 0 21 Intake/Output Intake and Output 01/27/25 07:00 Intake Total 100 ml Balance 100 ml Intake IV Total 100 ml General Appearance: Alert, Oriented X3 Lungs: Clear to auscultation, Normal air movement Cardiovascular: Regular rate, Normal S1, Normal S2, No murmurs Abdomen: Normal bowel sounds, Soft, No tenderness Medications Current Medications Medications Dose Ordered Sig/Misty Route Start Time Stop Time Status Last Admin Dose Admin Levetiracetam 100 ml @ 400 mls/hr BID IV 01/27/25 10:00 01/27/25 09:22 400 MLS/HR Amlodipine Besylate 5 mg DAILY PO 01/27/25 10:00 01/27/25 09:20 5 MG Carvedilol 12.5 mg Q12HR PO 01/27/25 10:00 01/27/25 09:19 12.5 MG Hydralazine HCl 10 mg Q6HP PRN IV 01/27/25 03:00 01/27/25 04:39 10 MG Multivit/Ca Carb/ B Cmplx/FA/Prenat 1 tab DAILY PO 01/27/25 10:00 01/27/25 09:17 1 TAB Sevelamer HCl 800 mg TIDWM PO 01/27/25 08:00 01/27/25 12:00 800 MG Diagnostic Test (Pha) 1 strip ACHS 01/27/25 07:00 01/27/25 11:30 1 STRIP Insulin Human Regular ACHS SC 01/27/25 07:00 01/27/25 13:26 2 UNITS Dextrose 50 ml UD PRN IV 01/27/25 03:00 Sodium Chloride 10 ml Q8HR IV 01/27/25 06:00 01/27/25 13:32 10 ML Acetaminophen/ Hydrocodone Bitart 1 tab Q4HP PRN PO 01/27/25 03:00 01/27/25 09:21 1 TAB Ondansetron HCl 4 mg Q4HP PRN IV 01/27/25 03:00 Docusate Sodium 100 mg BIDPRN PRN PO 01/27/25 03:00 Acetaminophen 650 mg Q6HP PRN PO 01/27/25 03:00 Apixaban 2.5 mg BID PO 01/27/25 10:00 Nitroglycerin 0.4 mg Q5MINP PRN SL 01/27/25 03:15 Morphine Sulfate 2 mg Q30M PRN IV 01/27/25 03:15 Laboratory Results Laboratory Tests 01/27/25 05:21 Chemistry Test 01/27/25 01:59 01/27/25 05:21 Albumin 3.8 g/dL (3.2-4.8) 3.7 g/dL (3.2-4.8) Calcium Level 9.0 mg/dL (8.7-10.4) 8.7 mg/dL (8.7-10.4) Total Protein 6.4 g/dL (5.7-8.2) 6.2 g/dL (5.7-8.2) Magnesium Level 1.9 mg/dL (1.6-2.6) Phosphorus Level 7.9 mg/dL (2.4-5.1) H Cardiac Markers Test 01/27/25 01:59 B-Type Natriuretic Peptide 579.08 pg/mL (0-100) LFT Test 01/27/25 01:59 01/27/25 05:21 Alanine Aminotransferase (ALT) 13 U/L (7-40) 11 U/L (7-40) Alkaline Phosphatase 95 U/L (46-116) 94 U/L (46-116) Aspartate Amino Transferase (AST) 17 U/L (13-40) 15 U/L (13-40) Total Bilirubin 0.2 mg/dL (0.2-1.0) 0.2 mg/dL (0.2-1.0) Labs and/or images reviewed: Labs reviewed by me, Image(s) reviewed by me Assessment/Plan Assessment/Plan 54-year-old male with past medical history of CHF, DM, end-stage renal disease on hemodialysis M-W-F, seizures, and hypertension presented to [facility] ED with complaint of seizures. Patient has no recollection of what happened, possibly had a seizure. Patient has been off his Keppra for the past 2 days, since he was told that he was taking too much Keppra. Patient states he was at [facility] 2 days ago where he had dialysis for 3 consecutive days. Patient arrives hypertensive systolic blood pressure greater than 200. Patient was seen and evaluated in the ED, laboratory data shows WBC 9.4, hemoglobin 11.2, hematocrit 32.7, platelets 262, sodium 143, potassium 5.5, BUN 47, creatinine 7.79, GFR 8, glucose 115, calcium 9.0, troponin 16, BNP 579.08, blood pressure 213/111 trending down to 153/86, heart rate 102, temperature 98.4 F, O2 saturation 98% on room air. Head CT showed no acute intracranial abnormality. Please see medication orders section in the computer. On my assessment, patient denied chest pain, no headache, dizziness, diaphoresis, shortness of breaths, no diarrhea, nausea, vomiting, fever, no chills. Patient was admitted for further evaluation and medical management. 01/27: Patient declines visit and exam. He is adamant that he has been compliant with medications. Diagnosis: Breakthrough seizure Hyperkalemia End-stage renal disease on hemodialysis MWF Hypertensive crisis Generalized weakness Hypertension Diabetes mellitus type 2 Chronic diastolic Congestive heart failure Blindness Wheelchair-bound Anemia of chronic kidney disease Plan: Tele Nephrology consult for ESRD dialysis schedule Thursday. IV fluids Q 4 neuro checks Neurology consult Continue home Keppra dose Continue other home medications Tele Full code Plan discussed with: Patient My Orders Orders - ELDER BABCOCK MD Procedure Category Date Status Time * Neurology Consult CONS 01/27/25 Transmitted 14:51 Date of Service: Jan 27, 2025 Billing Provider: ELDER BABCOCK MD Common Visit Codes: [id number] INP/OBS CARE(HIGH) ELDER BABCOCK MD Jan 27, 2025 17:38
[2025-01-28] VITALS (9 sets, daily range): BP systolic 113–154; BP diastolic 60–90; PULSE 75–88; RESP 16–18; TEMP 97.7–98.3; O2SAT 95–98
[2025-01-28] MEDS ORDERED: SODIUM CHL 0.9% 1000 ML BAG XX ONE (07:00)
[2025-01-28 07:38] LABS: Hematocrit 28.2 % (41.0-53.0); Hemoglobin 9.6 g/dL (13.5-17.5); Mean Corpuscular Hemoglobin 30.8 pg (28.0-32.0); Mean Corpuscular Volume 90.6 fL (80.0-100.0); Nucleated Red Blood Cells % 0.1 %
[2025-01-28 08:52] LABS: Alanine Aminotransferase 10 U/L (7-40); Alkaline Phosphatase 84 U/L (46-116); Anion Gap 15 (5-15); Sodium 144 mmol/L (136-145)
[2025-01-28 08:53] LABS: BUN/Creatinine Ratio 5.8 (10.0-20.0)
[2025-01-28 08:54] LABS: Blood Urea Nitrogen 52 mg/dL (9-23); Calcium 8.2 mg/dL (8.7-10.4); Carbon Dioxide 19 mmol/L (20-31); Chloride 110 mmol/L (98-107); Glucose 138 mg/dL (74-106); Potassium 5.3 mmol/L (3.5-5.1); Total Protein 5.4 g/dL (5.7-8.2)
[2025-01-28 08:55] LABS: Albumin 3.1 g/dL (3.2-4.8); Bilirubin, Total < 0.2 mg/dL (0.2-1.0)
--- NOTE | 2025-01-28 11:12 | DVHPN2 ---
Reviewed: H&P Changes from previous H/P or p: No Changes General: Per HPI Eyes: No Pain, No Vision change, No Conjunctivae inflammation, No Eyelid inflammation, No Other, No Redness ENT: No Ear pain, No Ear discharge, No Nose pain, No Nose discharge, No Nose congestion, No Mouth pain, No Mouth swelling, No Throat pain, No Throat swelling, No Other Cardiovascular: No Chest Pain, No Palpitations, No Orthopnea, No Paroxysmal Noc. Dyspnea, No Edema, No Lt Headedness; Other (Right PermCath) Respiratory: No Cough, No Dry, No Shortness of breath, No SOB with excertion, No Wheezing, No Hemoptysis, No Pleuritic Pain, No Sputum, No Other Gastrointestinal: No Nausea, No Vomiting, No Abdominal Pain, No Diarrhea, No Constipation, No Melena, No Hematochezia, No Other Genitourinary: No Dysuria, No Frequency, No Incontinence, No Hematuria, No Retention; Other (On hemodialysis) Musculoskeletal: No other, No neck pain, No shoulder pain, No arm pain, No back pain, No hand pain, No leg pain, No foot pain Skin: No Rash, No Lesions, No Jaundice, No Bruising, No Other Objective Vitals Vital Signs Date Time Temp Pulse Resp B/P (MAP) Pulse Ox O2 Delivery O2 Flow Rate FiO2 01/28/25 10:16 83 139/69 01/28/25 08:32 98.2 16 96 98.2 01/28/25 00:08 Room Air* 0 21 Intake/Output Intake and Output 01/28/25 07:00 Intake Total 440 ml Output Total 1000 ml Balance -560 ml Intake Oral 440 ml Output Urine Total 1000 ml General Appearance: Alert, Oriented X3 Lungs: Clear to auscultation, Normal air movement Cardiovascular: Regular rate, Normal S1, Normal S2, No murmurs Abdomen: Normal bowel sounds, Soft, No tenderness Medications Current Medications Medications Dose Ordered Sig/Misty Route Start Time Stop Time Status Last Admin Dose Admin Levetiracetam 100 ml @ 400 mls/hr BID IV 01/27/25 10:00 01/28/25 10:17 400 MLS/HR Amlodipine Besylate 5 mg DAILY PO 01/27/25 10:00 01/28/25 10:16 5 MG Carvedilol 12.5 mg Q12HR PO 01/27/25 10:00 01/28/25 10:16 12.5 MG Hydralazine HCl 10 mg Q6HP PRN IV 01/27/25 03:00 01/27/25 18:20 10 MG Multivit/Ca Carb/ B Cmplx/FA/Prenat 1 tab DAILY PO 01/27/25 10:00 01/28/25 10:15 1 TAB Sevelamer HCl 800 mg TIDWM PO 01/27/25 08:00 01/28/25 08:00 800 MG Diagnostic Test (Pha) 1 strip ACHS 01/27/25 07:00 01/28/25 06:04 1 STRIP Insulin Human Regular ACHS SC 01/27/25 07:00 01/28/25 06:04 2 UNITS Dextrose 50 ml UD PRN IV 01/27/25 03:00 Sodium Chloride 10 ml Q8HR IV 01/27/25 06:00 01/28/25 06:04 10 ML Acetaminophen/ Hydrocodone Bitart 1 tab Q4HP PRN PO 01/27/25 03:00 01/28/25 10:16 1 TAB Ondansetron HCl 4 mg Q4HP PRN IV 01/27/25 03:00 Docusate Sodium 100 mg BIDPRN PRN PO 01/27/25 03:00 Acetaminophen 650 mg Q6HP PRN PO 01/27/25 03:00 Apixaban 2.5 mg BID PO 01/27/25 10:00 01/28/25 10:15 2.5 MG Nitroglycerin 0.4 mg Q5MINP PRN SL 01/27/25 03:15 Morphine Sulfate 2 mg Q30M PRN IV 01/27/25 03:15 Laboratory Results Laboratory Tests 01/28/25 05:31 Chemistry Test 01/28/25 05:31 Albumin 3.1 g/dL (3.2-4.8) L Calcium Level 8.2 mg/dL (8.7-10.4) L Total Protein 5.4 g/dL (5.7-8.2) L LFT Test 01/28/25 05:31 Alanine Aminotransferase (ALT) 10 U/L (7-40) Alkaline Phosphatase 84 U/L (46-116) Aspartate Amino Transferase (AST) 13 U/L (13-40) Total Bilirubin < 0.2 mg/dL (0.2-1.0) L Labs and/or images reviewed: Labs reviewed by me, Image(s) reviewed by me Assessment/Plan Assessment/Plan 54-year-old male with past medical history of CHF, DM, end-stage renal disease on hemodialysis -, seizures, and hypertension presented to [facility] ED with complaint of seizures. Patient has no recollection of what happened, possibly had a seizure. Patient has been off his Keppra for the past 2 days, since he was told that he was taking too much Keppra. Patient states he was at [facility] 2 days ago where he had dialysis for 3 consecutive days. Patient arrives hypertensive systolic blood pressure greater than 200. Patient was seen and evaluated in the ED, laboratory data shows WBC 9.4, hemoglobin 11.2, hematocrit 32.7, platelets 262, sodium 143, potassium 5.5, BUN 47, creatinine 7.79, GFR 8, glucose 115, calcium 9.0, troponin 16, BNP 579.08, blood pressure 213/111 trending down to 153/86, heart rate 102, temperature 98.4 F, O2 saturation 98% on room air. Head CT showed no acute intracranial abnormality. Please see medication orders section in the computer. On my assessment, patient denied chest pain, no headache, dizziness, diaphoresis, shortness of breaths, no diarrhea, nausea, vomiting, fever, no chills. Patient was admitted for further evaluation and medical management. 01/27: Patient declines visit and exam. He is adamant that he has been compliant with medications. 01/28: We will convert morphine to Dilaudid 0.5 q.4 per patient request. Continue patient's home dose of gabapentin. Patient complaining of leg pain leg neuropathy leg left more than right. Continue ESRD dialysis, today's labs showing ESRD pattern hyperkalemia. Defer to Nephrology. Neurology consulted, we will continue to follow for seizures, if seizure-free by tomorrow we will discharge likely tomorrow a.m.. Continue q.4 neuro checks. Diagnosis: Breakthrough seizure Hyperkalemia End-stage renal disease on hemodialysis MWF Hypertensive crisis Generalized weakness Hypertension Diabetes mellitus type 2 Chronic diastolic Congestive heart failure Blindness Wheelchair-bound Anemia of chronic kidney disease Plan: Tele Nephrology consult for ESRD dialysis schedule Thursday. IV fluids Q 4 neuro checks Neurology consult Continue home Keppra dose Continue other home medications Tele Full code Plan discussed with: Patient My Orders Orders - ELDER BABCOCK MD Procedure Category Date Status Time * Neurology Consult CONS 01/27/25 Transmitted 14:51 Mrsa Screen CHANDNI 01/28/25 Uncollected 00:36 Urinalysis LAB 01/28/25 Logged 11:03 Drug Screen LAB 01/28/25 Logged 11:03 Date of Service: Jan 28, 2025 Billing Provider: ELDER BABCOCK MD Common Visit Codes: [id number] INP/OBS CARE(HIGH) ELDER BABCOCK MD Jan 28, 2025 11:12
[2025-01-28] MEDS: SEVELAMER 800 MG TAB PO SCH (11:15)
--- NOTE | 2025-01-28 11:15 | DVHPN2 ---
Progress Note Date Seen: Jan 28, 2025 Medical Necessity Reason Pt with a Central, PICC or Fol: No Subjective Patient reports: No new complaints Other Systems: Patient seen and examined by myself today in follow-up Patient examined hemodialysis, blood pressure stable Objective vital signs Vital Sign Date Time Temp Pulse Resp B/P (MAP) Pulse Ox O2 Delivery O2 Flow Rate FiO2 01/28/25 10:16 83 139/69 01/28/25 08:32 98.2 16 96 98.2 01/28/25 00:08 Room Air* 0 21 Total Intake and Output 01/27/25 01/27/25 01/28/25 15:00 23:00 07:00 Intake Total 440 ml Output Total 400 ml 600 ml Balance -400 ml -600 ml 440 ml medications Current Medications Medications Dose Ordered Sig/Misty Route Start Time Stop Time Status Last Admin Dose Admin Levetiracetam 100 ml @ 400 mls/hr BID IV 01/27/25 10:00 01/28/25 10:17 400 MLS/HR Amlodipine Besylate 5 mg DAILY PO 01/27/25 10:00 01/28/25 10:16 5 MG Carvedilol 12.5 mg Q12HR PO 01/27/25 10:00 01/28/25 10:16 12.5 MG Hydralazine HCl 10 mg Q6HP PRN IV 01/27/25 03:00 01/27/25 18:20 10 MG Multivit/Ca Carb/ B Cmplx/FA/Prenat 1 tab DAILY PO 01/27/25 10:00 01/28/25 10:15 1 TAB Sevelamer HCl 800 mg TIDWM PO 01/27/25 08:00 01/28/25 08:00 800 MG Diagnostic Test (Pha) 1 strip ACHS 01/27/25 07:00 01/28/25 06:04 1 STRIP Insulin Human Regular ACHS SC 01/27/25 07:00 01/28/25 06:04 2 UNITS Dextrose 50 ml UD PRN IV 01/27/25 03:00 Sodium Chloride 10 ml Q8HR IV 01/27/25 06:00 01/28/25 06:04 10 ML Acetaminophen/ Hydrocodone Bitart 1 tab Q4HP PRN PO 01/27/25 03:00 01/28/25 10:16 1 TAB Ondansetron HCl 4 mg Q4HP PRN IV 01/27/25 03:00 Docusate Sodium 100 mg BIDPRN PRN PO 01/27/25 03:00 Acetaminophen 650 mg Q6HP PRN PO 01/27/25 03:00 Apixaban 2.5 mg BID PO 01/27/25 10:00 01/28/25 10:15 2.5 MG Nitroglycerin 0.4 mg Q5MINP PRN SL 01/27/25 03:15 Morphine Sulfate 2 mg Q30M PRN IV 01/27/25 03:15 Examination: LUNGS:Normal, CVS:Normal, MSK:Normal laboratory and microbiology Laboratory Tests 01/28/25 05:31 Test 01/28/25 05:31 Range/Units Serum Glucose 138 H 74-106 mg/dL Problem List/Assessment/Plan Problem List/Assessment/Plan End-stage renal disease on hemodialysis Seizure disorder Hypertension Diabetes mellitus type 2 Chronic diastolic Congestive heart failure Blindness Wheelchair-bound Anemia of chronic kidney disease Hyperphosphatemia Secondary hyperparathyroidism Recommendations Continue with UF to 3 L as tolerated Epogen 19211 subQ 3 times weekly Strict I&Os Renal diet Resume home medication Blood pressure control Renvela 2400 mg p.o. t.i.d. with meals Insulin sliding scale Neurology consult We will continue to follow Plan discussed with: Patient ARTEMIO DENNISON MD Jan 28, 2025 11:15
[2025-01-28] MEDS: EPOETIN ALFA-EPBX 10,000 UNIT/1ML VIAL SC ONE (21:56)
[2025-01-29] VITALS (7 sets, daily range): BP systolic 142–160; BP diastolic 54–92; PULSE 66–88; RESP 16–18; TEMP 98–98.5; O2SAT 91–98
[2025-01-29 07:03] LABS: Alanine Aminotransferase 12 U/L (7-40); Alkaline Phosphatase 82 U/L (46-116); Anion Gap 16 (5-15); BUN/Creatinine Ratio 6.3 (10.0-20.0); Carbon Dioxide 24 mmol/L (20-31); Chloride 105 mmol/L (98-107); Sodium 145 mmol/L (136-145)
[2025-01-29 07:06] LABS: Bilirubin, Total < 0.2 mg/dL (0.2-1.0); Blood Urea Nitrogen 48 mg/dL (9-23); Calcium 7.9 mg/dL (8.7-10.4); Glucose 124 mg/dL (74-106); Potassium 5.1 mmol/L (3.5-5.1); Total Protein 4.9 g/dL (5.7-8.2)
[2025-01-29 07:07] LABS: Albumin 3.0 g/dL (3.2-4.8)
[2025-01-29] MEDS: ONDANSETRON HCL 4 MG/2 ML VIAL IV PRN (08:52)
[2025-01-29] MEDS: MORPHINE SULFATE 4 MG/ML SYR/VIAL IV PRN (08:56)
--- NOTE | 2025-01-29 09:38 | ECG ---
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
--- NOTE | 2025-01-29 10:59 | DVHPN2 ---
Progress Note Date Seen: Jan 29, 2025 Medical Necessity Reason Pt with a Central, PICC or Fol: No Subjective Patient reports: No new complaints Other Systems: Patient seen and examined by myself today in follow-up Objective vital signs Vital Sign Date Time Temp Pulse Resp B/P (MAP) Pulse Ox O2 Delivery O2 Flow Rate FiO2 01/29/25 08:59 82 148/84 01/29/25 08:56 16 01/29/25 08:47 98.4 94 98.4 01/28/25 20:00 Room Air* 0 21 Total Intake and Output 01/28/25 01/28/25 01/29/25 15:00 23:00 07:00 Intake Total 100 ml 600 ml 620 ml Output Total 600 ml Balance 100 ml 600 ml 20 ml medications Current Medications Medications Dose Ordered Sig/Misty Route Start Time Stop Time Status Last Admin Dose Admin Levetiracetam 100 ml @ 400 mls/hr BID IV 01/27/25 10:00 01/28/25 21:54 400 MLS/HR Amlodipine Besylate 5 mg DAILY PO 01/27/25 10:00 01/29/25 08:59 5 MG Carvedilol 12.5 mg Q12HR PO 01/27/25 10:00 01/29/25 08:59 12.5 MG Hydralazine HCl 10 mg Q6HP PRN IV 01/27/25 03:00 01/29/25 05:28 10 MG Multivit/Ca Carb/ B Cmplx/FA/Prenat 1 tab DAILY PO 01/27/25 10:00 01/29/25 09:00 1 TAB Diagnostic Test (Pha) 1 strip ACHS 01/27/25 07:00 01/29/25 06:37 1 STRIP Insulin Human Regular ACHS SC 01/27/25 07:00 01/29/25 06:41 2 UNITS Dextrose 50 ml UD PRN IV 01/27/25 03:00 Sodium Chloride 10 ml Q8HR IV 01/27/25 06:00 01/29/25 05:41 10 ML Acetaminophen/ Hydrocodone Bitart 1 tab Q4HP PRN PO 01/27/25 03:00 01/29/25 02:51 1 TAB Ondansetron HCl 4 mg Q4HP PRN IV 01/27/25 03:00 01/29/25 08:52 4 MG Docusate Sodium 100 mg BIDPRN PRN PO 01/27/25 03:00 Acetaminophen 650 mg Q6HP PRN PO 01/27/25 03:00 Apixaban 2.5 mg BID PO 01/27/25 10:00 01/28/25 10:15 2.5 MG Nitroglycerin 0.4 mg Q5MINP PRN SL 01/27/25 03:15 Sevelamer HCl 2,400 mg TIDWM PO 01/28/25 11:15 01/29/25 09:00 2,400 MG Morphine Sulfate 2 mg Q30M PRN IV 01/29/25 09:00 01/29/25 08:56 2 MG Examination: LUNGS:Normal, CVS:Normal, MSK:Normal laboratory and microbiology Laboratory Tests 01/29/25 05:09 01/28/25 05:31 Test 01/29/25 05:09 Range/Units Serum Glucose 124 H 74-106 mg/dL Microbiology Date/Time Source Procedure Growth Status 01/28/25 01:10 Nose MRSA Screen - Final Complete Problem List/Assessment/Plan Problem List/Assessment/Plan End-stage renal disease on hemodialysis Seizure disorder Hypertension Diabetes mellitus type 2 Chronic diastolic Congestive heart failure Blindness Wheelchair-bound Anemia of chronic kidney disease Hyperphosphatemia Secondary hyperparathyroidism Recommendations Next hemodialysis 01/31 Epogen 63809 subQ 3 times weekly Strict I&Os Renal diet Resume home medication Blood pressure control Increase amlodipine to 10 mg p.o. q.day Renvela 2400 mg p.o. t.i.d. with meals Insulin sliding scale Neurology consult We will continue to follow Plan discussed with: Patient My Orders My Orders Orders - ARTEMIO DENNISON MD Procedure Category Date Status Time Sevelamer (Renagel) PHA 01/28/25 In Process 11:15 ARTEMIO DENNISON MD Jan 29, 2025 10:59
--- NOTE | 2025-01-29 15:02 | DVHPN2 ---
Reviewed: H&P Changes from previous H/P or p: No Changes General: Per HPI Eyes: No Pain, No Vision change, No Conjunctivae inflammation, No Eyelid inflammation, No Other, No Redness ENT: No Ear pain, No Ear discharge, No Nose pain, No Nose discharge, No Nose congestion, No Mouth pain, No Mouth swelling, No Throat pain, No Throat swelling, No Other Cardiovascular: No Chest Pain, No Palpitations, No Orthopnea, No Paroxysmal Noc. Dyspnea, No Edema, No Lt Headedness; Other (Right PermCath) Respiratory: No Cough, No Dry, No Shortness of breath, No SOB with excertion, No Wheezing, No Hemoptysis, No Pleuritic Pain, No Sputum, No Other Gastrointestinal: No Nausea, No Vomiting, No Abdominal Pain, No Diarrhea, No Constipation, No Melena, No Hematochezia, No Other Genitourinary: No Dysuria, No Frequency, No Incontinence, No Hematuria, No Retention; Other (On hemodialysis) Musculoskeletal: No other, No neck pain, No shoulder pain, No arm pain, No back pain, No hand pain, No leg pain, No foot pain Skin: No Rash, No Lesions, No Jaundice, No Bruising, No Other Objective Vitals Vital Signs Date Time Temp Pulse Resp B/P (MAP) Pulse Ox O2 Delivery O2 Flow Rate FiO2 01/29/25 12:52 98.0 82 16 151/91 (111) 95 98.0 01/29/25 08:00 Room Air* 0 21 Intake/Output Intake and Output 01/29/25 07:00 Intake Total 1320 ml Output Total 600 ml Balance 720 ml Intake Oral 1220 ml IV Total 100 ml Output Urine Total 600 ml # Voids 2 General Appearance: Alert, Oriented X3 Lungs: Clear to auscultation, Normal air movement Cardiovascular: Regular rate, Normal S1, Normal S2, No murmurs Abdomen: Normal bowel sounds, Soft, No tenderness Medications Current Medications Medications Dose Ordered Sig/Misty Route Start Time Stop Time Status Last Admin Dose Admin Levetiracetam 100 ml @ 400 mls/hr BID IV 01/27/25 10:00 01/28/25 21:54 400 MLS/HR Carvedilol 12.5 mg Q12HR PO 01/27/25 10:00 01/29/25 08:59 12.5 MG Hydralazine HCl 10 mg Q6HP PRN IV 01/27/25 03:00 01/29/25 05:28 10 MG Multivit/Ca Carb/ B Cmplx/FA/Prenat 1 tab DAILY PO 01/27/25 10:00 01/29/25 09:00 1 TAB Diagnostic Test (Pha) 1 strip ACHS 01/27/25 07:00 01/29/25 11:30 1 STRIP Insulin Human Regular ACHS SC 01/27/25 07:00 01/29/25 06:41 2 UNITS Dextrose 50 ml UD PRN IV 01/27/25 03:00 Sodium Chloride 10 ml Q8HR IV 01/27/25 06:00 01/29/25 05:41 10 ML Acetaminophen/ Hydrocodone Bitart 1 tab Q4HP PRN PO 01/27/25 03:00 01/29/25 12:14 1 TAB Ondansetron HCl 4 mg Q4HP PRN IV 01/27/25 03:00 01/29/25 08:52 4 MG Docusate Sodium 100 mg BIDPRN PRN PO 01/27/25 03:00 Acetaminophen 650 mg Q6HP PRN PO 01/27/25 03:00 Apixaban 2.5 mg BID PO 01/27/25 10:00 01/28/25 10:15 2.5 MG Nitroglycerin 0.4 mg Q5MINP PRN SL 01/27/25 03:15 Sevelamer HCl 2,400 mg TIDWM PO 01/28/25 11:15 01/29/25 12:14 2,400 MG Morphine Sulfate 2 mg Q30M PRN IV 01/29/25 09:00 01/29/25 08:56 2 MG Amlodipine Besylate 10 mg DAILY PO 01/30/25 10:00 Laboratory Results Laboratory Tests 01/28/25 05:31 01/29/25 05:09 Chemistry Test 01/29/25 05:09 Albumin 3.0 g/dL (3.2-4.8) L Calcium Level 7.9 mg/dL (8.7-10.4) L Total Protein 4.9 g/dL (5.7-8.2) L LFT Test 01/29/25 05:09 Alanine Aminotransferase (ALT) 12 U/L (7-40) Alkaline Phosphatase 82 U/L (46-116) Aspartate Amino Transferase (AST) 13 U/L (13-40) Total Bilirubin < 0.2 mg/dL (0.2-1.0) L Microbiology Microbiology Date/Time Source Procedure Growth Status 01/28/25 01:10 Nose MRSA Screen - Final Complete Labs and/or images reviewed: Labs reviewed by me, Image(s) reviewed by me Assessment/Plan Assessment/Plan 54-year-old male with past medical history of CHF, DM, end-stage renal disease on hemodialysis M-W-F, seizures, and hypertension presented to [facility] ED with complaint of seizures. Patient has no recollection of what happened, possibly had a seizure. Patient has been off his Keppra for the past 2 days, since he was told that he was taking too much Keppra. Patient states he was at [facility] 2 days ago where he had dialysis for 3 consecutive days. Patient arrives hypertensive systolic blood pressure greater than 200. Patient was seen and evaluated in the ED, laboratory data shows WBC 9.4, hemoglobin 11.2, hematocrit 32.7, platelets 262, sodium 143, potassium 5.5, BUN 47, creatinine 7.79, GFR 8, glucose 115, calcium 9.0, troponin 16, BNP 579.08, blood pressure 213/111 trending down to 153/86, heart rate 102, temperature 98.4 F, O2 saturation 98% on room air. Head CT showed no acute intracranial abnormality. Please see medication orders section in the computer. On my assessment, patient denied chest pain, no headache, dizziness, diaphoresis, shortness of breaths, no diarrhea, nausea, vomiting, fever, no chills. Patient was admitted for further evaluation and medical management. 01/27: Patient declines visit and exam. He is adamant that he has been compliant with medications. 01/28: We will convert morphine to Dilaudid 0.5 q.4 per patient request. Continue patient's home dose of gabapentin. Patient complaining of leg pain leg neuropathy leg left more than right. Continue ESRD dialysis, today's labs showing ESRD pattern hyperkalemia. Defer to Nephrology. Neurology consulted, we will continue to follow for seizures, if seizure-free by tomorrow we will discharge likely tomorrow a.m.. Continue q.4 neuro checks. 01/29: No further seizures, patient is continues to complain pereira positive ROS,. Asking for half-way placement senior living, asking for PCP changed to another local provider,. Appropriate consults were placed. PT eval also placed. Waiting for neurology eval. We will keep patient inpatient for 1 more day. - Discussed with RN, patient continue saying he is blind but is able to easily reach for food etc.., no seizures 24 hours, patient continues to decline IV Keppra,. Apparently patient recently discharged from another hospital. Is strong concern for malingering at this point. We will start oral Keppra, patient continues to be seizure-free we will discharge in a.m.. Diagnosis: Breakthrough seizure Hyperkalemia End-stage renal disease on hemodialysis MWF Hypertensive crisis Generalized weakness Hypertension Diabetes mellitus type 2 Chronic diastolic Congestive heart failure Blindness Wheelchair-bound Anemia of chronic kidney disease Plan: Tele Nephrology consult for ESRD dialysis schedule Thursday. IV fluids Q 4 neuro checks Neurology consult Continue home Keppra dose Continue other home medications Tele Full code Plan discussed with: Patient Date of Service: Jan 29, 2025 Billing Provider: ELDER BABCOCK MD Common Visit Codes: [id number] INP/OBS CARE(HIGH) ELDER BABCOCK MD Jan 29, 2025 15:02
[2025-01-29] MEDS: levETIRAcetam 500 MG TAB PO SCH (21:41)
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
[2025-01-29] MEDS ORDERED: LORazepam 2MG/ML-1ML VIAL IV PRN (23:45)
[2025-01-30] VITALS (9 sets, daily range): BP systolic 117–170; BP diastolic 62–102; PULSE 75–83; RESP 16–22; TEMP 97.8–98.4; O2SAT 93–96
[2025-01-30] MEDS: HYDROmorphone HCL 2 MG/ML VL/or syr IV PRN (05:16)
[2025-01-30 07:27] LABS: Urine Protein, UAD 3+ (Negative)
[2025-01-30 07:36] LABS: Opiate Scree,Urine Neg (NEGATIVE)
[2025-01-30 07:37] LABS: Amphetamine Screen, Urine Neg (NEGATIVE); Barbiturate Scree,Urine Neg (NEGATIVE); Benzodiazephine Screen, Urine Neg (NEGATIVE); Cannabinoid Screen, Urine Neg (NEGATIVE); Cocaine Screen, Urine Neg (NEGATIVE); Phencyclidine Screen, Urine Neg (NEGATIVE)
--- NOTE | 2025-01-30 10:45 | DVHPN2 ---
Reviewed: H&P Changes from previous H/P or p: No Changes General: Per HPI Eyes: No Pain, No Vision change, No Conjunctivae inflammation, No Eyelid inflammation, No Other, No Redness ENT: No Ear pain, No Ear discharge, No Nose pain, No Nose discharge, No Nose congestion, No Mouth pain, No Mouth swelling, No Throat pain, No Throat swelling, No Other Cardiovascular: No Chest Pain, No Palpitations, No Orthopnea, No Paroxysmal Noc. Dyspnea, No Edema, No Lt Headedness; Other (Right PermCath) Respiratory: No Cough, No Dry, No Shortness of breath, No SOB with excertion, No Wheezing, No Hemoptysis, No Pleuritic Pain, No Sputum, No Other Gastrointestinal: No Nausea, No Vomiting, No Abdominal Pain, No Diarrhea, No Constipation, No Melena, No Hematochezia, No Other Genitourinary: No Dysuria, No Frequency, No Incontinence, No Hematuria, No Retention; Other (On hemodialysis) Musculoskeletal: No other, No neck pain, No shoulder pain, No arm pain, No back pain, No hand pain, No leg pain, No foot pain Skin: No Rash, No Lesions, No Jaundice, No Bruising, No Other Objective Vitals Vital Signs Date Time Temp Pulse Resp B/P (MAP) Pulse Ox O2 Delivery O2 Flow Rate FiO2 01/30/25 09:00 98.3 81 18 170/102 (124) 96 98.3 01/30/25 07:45 Room Air* 0 21 Intake/Output Intake and Output 01/30/25 07:00 Intake Total 1340 ml Output Total 650 ml Balance 690 ml Intake Oral 1340 ml Output Urine Total 650 ml # Voids 4 # Bowel Movements 4 General Appearance: Alert, Oriented X3 Lungs: Clear to auscultation, Normal air movement Cardiovascular: Regular rate, Normal S1, Normal S2, No murmurs Abdomen: Normal bowel sounds, Soft, No tenderness Medications Current Medications Medications Dose Ordered Sig/Misty Route Start Time Stop Time Status Last Admin Dose Admin Carvedilol 12.5 mg Q12HR PO 01/27/25 10:00 01/30/25 08:39 12.5 MG Hydralazine HCl 10 mg Q6HP PRN IV 01/27/25 03:00 01/30/25 05:26 10 MG Multivit/Ca Carb/ B Cmplx/FA/Prenat 1 tab DAILY PO 01/27/25 10:00 01/30/25 08:39 1 TAB Diagnostic Test (Pha) 1 strip ACHS 01/27/25 07:00 01/30/25 06:12 1 STRIP Insulin Human Regular ACHS SC 01/27/25 07:00 01/29/25 06:41 2 UNITS Dextrose 50 ml UD PRN IV 01/27/25 03:00 Sodium Chloride 10 ml Q8HR IV 01/27/25 06:00 01/30/25 05:21 10 ML Acetaminophen/ Hydrocodone Bitart 1 tab Q4HP PRN PO 01/27/25 03:00 01/30/25 08:38 1 TAB Ondansetron HCl 4 mg Q4HP PRN IV 01/27/25 03:00 01/29/25 20:20 4 MG Docusate Sodium 100 mg BIDPRN PRN PO 01/27/25 03:00 Acetaminophen 650 mg Q6HP PRN PO 01/27/25 03:00 Apixaban 2.5 mg BID PO 01/27/25 10:00 01/28/25 10:15 2.5 MG Nitroglycerin 0.4 mg Q5MINP PRN SL 01/27/25 03:15 Sevelamer HCl 2,400 mg TIDWM PO 01/28/25 11:15 01/30/25 08:37 2,400 MG Morphine Sulfate 2 mg Q30M PRN IV 01/29/25 09:00 01/29/25 08:56 2 MG Amlodipine Besylate 10 mg DAILY PO 01/30/25 10:00 01/30/25 08:38 10 MG Hydromorphone HCl 0.25 mg Q6HPRN PRN IV 01/29/25 15:30 01/30/25 05:16 0.25 MG Levetiracetam 500 mg BID PO 01/30/25 22:00 Lorazepam 1 mg Q5MINP PRN IV 01/29/25 23:45 Laboratory Results Laboratory Tests 01/28/25 05:31 01/29/25 05:09 Urinalysis Test 01/28/25 06:30 Urine Color Light-yellow (Yellow) Urine Clarity Clear (Clear) Urine pH 7.5 (5.0-9.0) Urine Specific [place] 1.015 (1.001-1.035) Urine Protein 3+ (Negative) H Urine Ketones Negative (Negative) Urine Blood Trace /uL (Negative) H Urine Nitrite Negative (Negative) Urine Bilirubin Negative (Negative) Urine Urobilinogen Normal mg/dL (Negative) Urine Leukocyte Esterase Negative /uL (Negative) Urine RBC 1 /hpf (0 - 3) Urine Microscopic WBC 2 /HPF (0-3) Urine Squamous Epithelial Cells Few /hpf (<5) Urine Bacteria Few /hpf (None Seen) H Urine Glucose 3+ mg/dL (Normal) H Microbiology Microbiology Date/Time Source Procedure Growth Status 01/28/25 01:10 Nose MRSA Screen - Final Complete Labs and/or images reviewed: Labs reviewed by me, Image(s) reviewed by me Assessment/Plan Assessment/Plan 54-year-old male with past medical history of CHF, DM, end-stage renal disease on hemodialysis M-W-, seizures, and hypertension presented to [facility] ED with complaint of seizures. Patient has no recollection of what happened, possibly had a seizure. Patient has been off his Keppra for the past 2 days, since he was told that he was taking too much Keppra. Patient states he was at [facility] 2 days ago where he had dialysis for 3 consecutive days. Patient arrives hypertensive systolic blood pressure greater than 200. Patient was seen and evaluated in the ED, laboratory data shows WBC 9.4, hemoglobin 11.2, hematocrit 32.7, platelets 262, sodium 143, potassium 5.5, BUN 47, creatinine 7.79, GFR 8, glucose 115, calcium 9.0, troponin 16, BNP 579.08, blood pressure 213/111 trending down to 153/86, heart rate 102, temperature 98.4 F, O2 saturation 98% on room air. Head CT showed no acute intracranial abnormality. Please see medication orders section in the computer. On my assessment, patient denied chest pain, no headache, dizziness, diaphoresis, shortness of breaths, no diarrhea, nausea, vomiting, fever, no chills. Patient was admitted for further evaluation and medical management. 01/27: Patient declines visit and exam. He is adamant that he has been compliant with medications. 01/28: We will convert morphine to Dilaudid 0.5 q.4 per patient request. Continue patient's home dose of gabapentin. Patient complaining of leg pain leg neuropathy leg left more than right. Continue ESRD dialysis, today's labs showing ESRD pattern hyperkalemia. Defer to Nephrology. Neurology consulted, we will continue to follow for seizures, if seizure-free by tomorrow we will discharge likely tomorrow a.m.. Continue q.4 neuro checks. 01/29: No further seizures, patient is continues to complain pereira positive ROS,. Asking for skilled nursing placement long term, asking for PCP changed to another local provider,. Appropriate consults were placed. PT eval also placed. Waiting for neurology eval. We will keep patient inpatient for 1 more day. - Discussed with RN, patient continue saying he is blind but is able to easily reach for food etc.., no seizures 24 hours, patient continues to decline IV Keppra,. Apparently patient recently discharged from another hospital. Is strong concern for malingering at this point. We will start oral Keppra, patient continues to be seizure-free we will discharge in a.m.. 01/30: Patient remains seizure-free. We will discuss with social workers to see patient can get the requested change in PCP and if he qualifies for skilled nursing residential care. Likely discharge today. Diagnosis: Breakthrough seizure Hyperkalemia End-stage renal disease on hemodialysis MWF Hypertensive crisis Generalized weakness Hypertension Diabetes mellitus type 2 Chronic diastolic Congestive heart failure Blindness Wheelchair-bound Anemia of chronic kidney disease Plan: Tele Nephrology consult for ESRD dialysis schedule Thursday. IV fluids Q 4 neuro checks Neurology consult Continue home Keppra dose Continue other home medications Tele Full code Plan discussed with: Patient My Orders Orders - ELDER BABCOCK MD Procedure Category Date Status Time Consult Care CONS 01/29/25 Transmitted Coordinator * Clinical Trial Educator CONS 01/29/25 Transmitted Consult Pt Request For Service PT 01/29/25 Logged 14:59 Hydromorphone PHA 01/29/25 In Process Injection (Dilaudid 15:30 Date of Service: Feb 01, 2025 Billing Provider: ELDER BABCOCK MD Common Visit Codes: [id number] INP/OBS CARE(HIGH) ELDER BABCOCK MD Jan 30, 2025 10:45
--- NOTE | 2025-01-30 16:27 | DVHDS2 ---
Discharge Summary Date of Admission Jan 27, 2025 at 03:11 Date of Discharge: Jan 30, 2025 Labs/Diagnostic Data: Laboratory Results Test 01/30/25 11:24 01/29/25 10:30 01/29/25 05:09 01/28/25 06:30 POC Glucose 127 mg/dl (70-106) Troponin I High Sensitivity 12 ng/L (</=54) Sodium Level 145 mmol/L (136-145) Potassium Level 5.1 mmol/L (3.5-5.1) Chloride Level 105 mmol/L (98-107) Carbon Dioxide Level 24 mmol/L (20-31) Anion Gap 16 (5-15) Blood Urea Nitrogen 48 mg/dL (9-23) Creatinine 7.57 mg/dL (0.700-1.30) Glomerular Filtration Rate Calc 8 mL/min (>90) BUN/Creatinine Ratio 6.3 (10.0-20.0) Serum Glucose 124 mg/dL (74-106) Calcium Level 7.9 mg/dL (8.7-10.4) Total Bilirubin < 0.2 mg/dL (0.2-1.0) Aspartate Amino Transferase (AST) 13 U/L (13-40) Alanine Aminotransferase (ALT) 12 U/L (7-40) Alkaline Phosphatase 82 U/L (46-116) Total Protein 4.9 g/dL (5.7-8.2) Albumin 3.0 g/dL (3.2-4.8) Urine Color Light-yellow (Yellow) Urine Clarity Clear (Clear) Urine pH 7.5 (5.0-9.0) Urine Specific [place] 1.015 (1.001-1.035) Urine Protein 3+ (Negative) Urine Ketones Negative (Negative) Urine Blood Trace /uL (Negative) Urine Nitrite Negative (Negative) Urine Bilirubin Negative (Negative) Urine Urobilinogen Normal mg/dL (Negative) Urine Leukocyte Esterase Negative /uL (Negative) Urine RBC 1 /hpf (0 - 3) Urine Microscopic WBC 2 /HPF (0-3) Urine Squamous Epithelial Cells Few /hpf (<5) Urine Bacteria Few /hpf (None Seen) Urine Glucose 3+ mg/dL (Normal) Urine Opiates Screen Neg (NEGATIVE) Urine Fentanyl Screen Neg (NEGATIVE) Urine Barbiturates Screen Neg (NEGATIVE) Urine Phencyclidine Screen Neg (NEGATIVE) Urine Amphetamines Screen Neg (NEGATIVE) Urine Benzodiazepines Screen Neg (NEGATIVE) Urine Cocaine Screen Neg (NEGATIVE) Urine Cannabinoids Screen Neg (NEGATIVE) Test 01/28/25 05:31 01/27/25 05:21 01/27/25 03:03 01/27/25 01:59 White Blood Count 7.0 10^3/uL (4.4-10.8) Red Blood Count 3.11 10^6/uL (4.5-5.90) Hemoglobin 9.6 g/dL (13.5-17.5) Hematocrit 28.2 % (41.0-53.0) Mean Corpuscular Volume 90.6 fL (80.0-100.0) Mean Corpuscular Hemoglobin 30.8 pg (28.0-32.0) Mean Corpuscular Hemoglobin Concent 34.0 g/dL (32.0-36.0) Red Cell Distribution Width 13.6 % (11.8-14.3) Platelet Count 235 10^3/uL (140-450) Mean Platelet Volume 7.4 fL (6.9-10.8) Neutrophils (%) (Auto) 59.0 % (37.0-80.0) Lymphocytes (%) (Auto) 27.3 % (10.0-50.0) Monocytes (%) (Auto) 7.5 % (0.0-12.0) Eosinophils (%) (Auto) 5.3 % (0.0-7.0) Basophils (%) (Auto) 0.9 % (0.0-2.0) Neutrophils # (Auto) 4.1 10 ^3/uL (1.6-8.6) Lymphocytes # (Auto) 1.9 10 ^3/uL (0.4-5.4) Monocytes # (Auto) 0.5 10 ^3/uL (0-1.3) Eosinophils # (Auto) 0.4 10 ^3/uL (0-0.8) Basophils # (Auto) 0.1 10 ^3/uL (0-0.2) Nucleated Red Blood Cells 0.1 % Phosphorus Level 7.9 mg/dL (2.4-5.1) Magnesium Level 1.9 mg/dL (1.6-2.6) Creatine Kinase 235 U/L (46-171) Vitamin D 25-Hydroxy 19.6 ng/mL (30.0-100) Parathyroid Hormone (Intact) 346.3 pg/mL (18.4-80.1) Hepatitis B Surface Antigen Negative (Negative) Levetiracetam Level 10.4 ug/mL (10.0-40.0) Lactic Acid Level 0.7 mmol/L (0.4-2.0) B-Type Natriuretic Peptide 579.08 pg/mL (0-100) Other Laboratory Tests 01/29/25 05:09 01/28/25 05:31 Brief Hx & Hospital Course: 54-year-old male with past medical history of CHF, DM, end-stage renal disease on hemodialysis M--, seizures, and hypertension presented to [facility] ED with complaint of seizures. Patient has no recollection of what happened, possibly had a seizure. Patient has been off his Keppra for the past 2 days, since he was told that he was taking too much Keppra. Patient states he was at [facility] 2 days ago where he had dialysis for 3 consecutive days. Patient arrives hypertensive systolic blood pressure greater than 200. Patient was seen and evaluated in the ED, laboratory data shows WBC 9.4, hemoglobin 11.2, hematocrit 32.7, platelets 262, sodium 143, potassium 5.5, BUN 47, creatinine 7.79, GFR 8, glucose 115, calcium 9.0, troponin 16, BNP 579.08, blood pressure 213/111 trending down to 153/86, heart rate 102, temperature 98.4 F, O2 saturation 98% on room air. Head CT showed no acute intracranial abnormality. Please see medication orders section in the computer. On my assessment, patient denied chest pain, no headache, dizziness, diaphoresis, shortness of breaths, no diarrhea, nausea, vomiting, fever, no chills. Patient was admitted for further evaluation and medical management. 01/27: Patient declines visit and exam. He is adamant that he has been compliant with medications. 01/28: We will convert morphine to Dilaudid 0.5 q.4 per patient request. Continue patient's home dose of gabapentin. Patient complaining of leg pain leg neuropathy leg left more than right. Continue ESRD dialysis, today's labs showing ESRD pattern hyperkalemia. Defer to Nephrology. Neurology consulted, we will continue to follow for seizures, if seizure-free by tomorrow we will discharge likely tomorrow a.m.. Continue q.4 neuro checks. 01/29: No further seizures, patient is continues to complain pereira positive ROS,. Asking for snf placement senior living, asking for PCP changed to another local provider,. Appropriate consults were placed. PT eval also placed. Waiting for neurology eval. We will keep patient inpatient for 1 more day. - Discussed with RN, patient continue saying he is blind but is able to easily reach for food etc.., no seizures 24 hours, patient continues to decline IV Keppra,. Apparently patient recently discharged from another hospital. Is strong concern for malingering at this point. We will start oral Keppra, patient continues to be seizure-free we will discharge in a.m.. 01/30: Patient remains seizure-free. We will discuss with social workers to see patient can get the requested change in PCP and if he qualifies for snf residential care. Likely discharge today. Diagnosis: Breakthrough seizure, due to medication noncompliance Hyperkalemia, due to dialysis schedule noncompliance End-stage renal disease on hemodialysis MWF Hypertensive crisis Generalized weakness Hypertension Diabetes mellitus type 2 Chronic diastolic Congestive heart failure Blindness Wheelchair-bound Anemia of chronic kidney disease plan: - return home continue IHSS visits - continue home dose of Keppra 500 mg twice daily. Continuing taking medications, strict orders to stay compliant with medications including anti epileptics - strict compliance with ESRD hemodialysis schedule - continue close follow up with PCP and ECM clinic. Condition at Discharge: Fair Final Diagnosis/Problems List Breakthrough seizure, due to medication noncompliance Hyperkalemia, due to dialysis schedule noncompliance End-stage renal disease on hemodialysis MWF Hypertensive crisis Generalized weakness Hypertension Diabetes mellitus type 2 Chronic diastolic Congestive heart failure Blindness Wheelchair-bound Anemia of chronic kidney disease Discharge Disposition: Home Discharge Instruct/Medications Scheduled Apixaban Base (Eliquis), 2.5 MG PO BID Atorvastatin Calcium (Lipitor), 40 MG PO DAILY Brimonidine Tartrate (Alphagan P), 0.1 % OP TID Bumetanide (Bumetanide), 1 TAB PO DAILY Carvedilol (Carvedilol), 1 TAB PO BID Dorzolamide HCl-Timolol Maleat (Cosopt 2-0.5 %), 1 KEERTHI OP BID Hydralazine Hcl (Hydralazine Hcl), 1 TAB PO TID Levetiracetam (Levetiracetam), 1 TAB PO BID Losartan Potassium (Losartan Potassium), 100 MG PO DAILY Nifedipine (Nifedipine Er), 90 MG PO DAILY Nifedipine (Nifedipine Er), 90 MG PO QPM Olopatadine HCl (Olopatadine Hydrochloride), 1 DROP LEFTEYE BID, (Reported) Scheduled PRN Hydrocodone-Acetaminophen (Hydrocodone Bitartrate/AC 5-325 mg), 1-2 TAB PO Q6HP PRN Miscellaneous Medications Insulin Lispro (Insulin Lispro Thai Kwi), (Reported) Quetiapine Fumerate (Quetiapine Fumarate), 1 TAB PO, (Reported) Discharge Statement: "Patient was advised to return to the ER or call 911 if any headaches, dizziness, shortness of breath, chest pain, abdominal pain, bleeding, fevers, or worsening of medical condition. Patient was counseled about treatment plan, medications, possible side effects, patientverbalized understanding. All questions were answered to the best of my ability. This discharge took greater then 30 minutes in planning, reviewing documentation, counseling the patient, and discussing with other team members." ASSESSMENT ASSESSMENT Assessment Date of Service: Jan 30, 2025 Billing Provider: ELDER BABCOCK MD Common Visit Codes: [id number] DISCH DAY >30min ELDER BABCOCK MD Jan 30, 2025 16:27
--- NOTE | 2025-01-30 17:08 | DVHPN2 ---
Progress Note Date Seen: Jan 30, 2025 Medical Necessity Reason Pt with a Central, PICC or Fol: No Subjective Patient reports: No new complaints Objective vital signs Vital Sign Date Time Temp Pulse Resp B/P (MAP) Pulse Ox O2 Delivery O2 Flow Rate FiO2 01/30/25 17:00 97.8 77 16 117/62 (80) 96 97.8 01/30/25 07:45 Room Air* 0 21 Total Intake and Output 01/29/25 01/29/25 01/30/25 15:00 23:00 07:00 Intake Total 1000 ml 340 ml Output Total 650 ml Balance 350 ml 340 ml medications Current Medications Medications Dose Ordered Sig/Misty Route Start Time Stop Time Status Last Admin Dose Admin Carvedilol 12.5 mg Q12HR PO 01/27/25 10:00 01/30/25 08:39 12.5 MG Hydralazine HCl 10 mg Q6HP PRN IV 01/27/25 03:00 01/30/25 05:26 10 MG Multivit/Ca Carb/ B Cmplx/FA/Prenat 1 tab DAILY PO 01/27/25 10:00 01/30/25 08:39 1 TAB Diagnostic Test (Pha) 1 strip ACHS 01/27/25 07:00 01/30/25 11:30 1 STRIP Insulin Human Regular ACHS SC 01/27/25 07:00 01/29/25 06:41 2 UNITS Dextrose 50 ml UD PRN IV 01/27/25 03:00 Sodium Chloride 10 ml Q8HR IV 01/27/25 06:00 01/30/25 13:06 10 ML Acetaminophen/ Hydrocodone Bitart 1 tab Q4HP PRN PO 01/27/25 03:00 01/30/25 08:38 1 TAB Ondansetron HCl 4 mg Q4HP PRN IV 01/27/25 03:00 01/30/25 15:54 4 MG Docusate Sodium 100 mg BIDPRN PRN PO 01/27/25 03:00 Acetaminophen 650 mg Q6HP PRN PO 01/27/25 03:00 Apixaban 2.5 mg BID PO 01/27/25 10:00 01/28/25 10:15 2.5 MG Nitroglycerin 0.4 mg Q5MINP PRN SL 01/27/25 03:15 Sevelamer HCl 2,400 mg TIDWM PO 01/28/25 11:15 01/30/25 12:00 2,400 MG Morphine Sulfate 2 mg Q30M PRN IV 01/29/25 09:00 01/29/25 08:56 2 MG Amlodipine Besylate 10 mg DAILY PO 01/30/25 10:00 01/30/25 08:38 10 MG Hydromorphone HCl 0.25 mg Q6HPRN PRN IV 01/29/25 15:30 01/30/25 13:13 0.25 MG Levetiracetam 500 mg BID PO 01/30/25 22:00 Lorazepam 1 mg Q5MINP PRN IV 01/29/25 23:45 laboratory and microbiology Laboratory Tests 01/29/25 05:09 01/28/25 05:31 Test 01/29/25 05:09 Range/Units Serum Glucose 124 H 74-106 mg/dL Microbiology Date/Time Source Procedure Growth Status 01/28/25 01:10 Nose MRSA Screen - Final Complete Problem List/Assessment/Plan Problem List/Assessment/Plan End-stage renal disease on hemodialysis Seizure disorder Hypertension Diabetes mellitus type 2 Chronic diastolic Congestive heart failure Blindness Wheelchair-bound Anemia of chronic kidney disease Hyperphosphatemia Secondary hyperparathyroidism Recommendations Next hemodialysis 01/31 Epogen 32770 subQ 3 times weekly Strict I&Os Renal diet Resume home medication Blood pressure control Increase amlodipine to 10 mg p.o. q.day Renvela 2400 mg p.o. t.i.d. with meals Insulin sliding scale Neurology consult We will continue to follow Plan discussed with: Patient SHAYY FERNANDES MD Jan 30, 2025 17:08
[2025-01-30 18:40] LABS: Base Excess -4.1 mmol/L (-2.0-3.0)
[2025-01-30 19:21] LABS: Sodium 143 mmol/L (136-145)
[2025-01-30 19:22] LABS: Anion Gap 14 (5-15); Carbon Dioxide 21 mmol/L (20-31)
[2025-01-30 19:27] LABS: BUN/Creatinine Ratio 5.7 (10.0-20.0); Glucose 93 mg/dL (74-106)
[2025-01-30 19:56] LABS: Blood Urea Nitrogen 54 mg/dL (9-23); Chloride 108 mmol/L (98-107)
[2025-01-30 19:57] LABS: Calcium 8.6 mg/dL (8.7-10.4)
[2025-01-30 20:00] LABS: Potassium 5.8 mmol/L (3.5-5.1)
[2025-01-30] MEDS: InsuLIN REG 1unit/0.01ml Soln (100units/ml) IV ONE (20:15)
--- NOTE | 2025-01-30 20:36 | DVH ---
Date: 01/30/2025 08:04 PM Examination: XY KUB ABDOMEN SINGLE VIEW History: abd pain Comparison: None TECHNIQUE: Frontal views of the abdomen was obtained. FINDINGS: Bowel gas pattern is unremarkable. The lung bases are unremarkable. Bony spondylosis and degenerative disc changes are noted throughout the lumbar spine. IMPRESSION: 1. Nonobstructive bowel gas pattern.
[2025-01-30] MEDS: CALCIUM GLUC 1,000mg/50ml-NS 50 ML IV ONE (21:20)
[2025-01-30] MEDS: DEXTROSE (50%) 50ML SYRG IV ONE (21:54)
[2025-01-30] MEDS: SODIUM BICARB 8.4% 50Meq/50ml SYR Vial IV ONE (21:58)
[2025-01-30] MEDS: SODIUM ZIRCONIUM CYCL 10 GM PAK PO ONE (22:09)
[2025-01-30] MEDS: levETIRAcetam 500 MG TAB PO SCH (22:44)
[2025-01-31] VITALS (9 sets, daily range): BP systolic 127–160; BP diastolic 75–95; PULSE 71–78; RESP 16–19; TEMP 36.7; O2SAT 94–98
--- NOTE | 2025-01-31 12:21 | DVHPN2 ---
Reviewed: H&P Changes from previous H/P or p: No Changes General: Per HPI Eyes: No Pain, No Vision change, No Conjunctivae inflammation, No Eyelid inflammation, No Other, No Redness ENT: No Ear pain, No Ear discharge, No Nose pain, No Nose discharge, No Nose congestion, No Mouth pain, No Mouth swelling, No Throat pain, No Throat swelling, No Other Cardiovascular: No Chest Pain, No Palpitations, No Orthopnea, No Paroxysmal Noc. Dyspnea, No Edema, No Lt Headedness; Other (Right PermCath) Respiratory: No Cough, No Dry, No Shortness of breath, No SOB with excertion, No Wheezing, No Hemoptysis, No Pleuritic Pain, No Sputum, No Other Gastrointestinal: No Nausea, No Vomiting, No Abdominal Pain, No Diarrhea, No Constipation, No Melena, No Hematochezia, No Other Genitourinary: No Dysuria, No Frequency, No Incontinence, No Hematuria, No Retention; Other (On hemodialysis) Musculoskeletal: No other, No neck pain, No shoulder pain, No arm pain, No back pain, No hand pain, No leg pain, No foot pain Skin: No Rash, No Lesions, No Jaundice, No Bruising, No Other Objective Vitals Vital Signs Date Time Temp Pulse Resp B/P (MAP) Pulse Ox O2 Delivery O2 Flow Rate FiO2 01/31/25 12:08 76 17 142/87 01/31/25 09:00 97.8 97 97.8 01/31/25 08:00 Room Air* 0 21 Intake/Output Intake and Output 01/31/25 06:59 Intake Total 1450 ml Output Total 700 ml Balance 750 ml Intake Oral 1450 ml Output Urine Total 700 ml # Voids 2 # Bowel Movements 3 General Appearance: Alert, Oriented X3 Lungs: Clear to auscultation, Normal air movement Cardiovascular: Regular rate, Normal S1, Normal S2, No murmurs Abdomen: Normal bowel sounds, Soft, No tenderness Medications Current Medications Medications Dose Ordered Sig/Misty Route Start Time Stop Time Status Last Admin Dose Admin Carvedilol 12.5 mg Q12HR PO 01/27/25 10:00 01/31/25 09:22 12.5 MG Hydralazine HCl 10 mg Q6HP PRN IV 01/27/25 03:00 01/30/25 05:26 10 MG Multivit/Ca Carb/ B Cmplx/FA/Prenat 1 tab DAILY PO 01/27/25 10:00 01/31/25 09:22 1 TAB Diagnostic Test (Pha) 1 strip ACHS 01/27/25 07:00 01/31/25 11:24 1 STRIP Insulin Human Regular ACHS SC 01/27/25 07:00 01/30/25 22:00 4 UNITS Dextrose 50 ml UD PRN IV 01/27/25 03:00 Sodium Chloride 10 ml Q8HR IV 01/27/25 06:00 01/31/25 06:40 10 ML Acetaminophen/ Hydrocodone Bitart 1 tab Q4HP PRN PO 01/27/25 03:00 01/31/25 09:23 1 TAB Ondansetron HCl 4 mg Q4HP PRN IV 01/27/25 03:00 01/30/25 15:54 4 MG Docusate Sodium 100 mg BIDPRN PRN PO 01/27/25 03:00 Acetaminophen 650 mg Q6HP PRN PO 01/27/25 03:00 Apixaban 2.5 mg BID PO 01/27/25 10:00 01/28/25 10:15 2.5 MG Nitroglycerin 0.4 mg Q5MINP PRN SL 01/27/25 03:15 Sevelamer HCl 2,400 mg TIDWM PO 01/28/25 11:15 01/31/25 12:04 2,400 MG Morphine Sulfate 2 mg Q30M PRN IV 01/29/25 09:00 01/29/25 08:56 2 MG Amlodipine Besylate 10 mg DAILY PO 01/30/25 10:00 01/31/25 09:21 10 MG Hydromorphone HCl 0.25 mg Q6HPRN PRN IV 01/29/25 15:30 01/31/25 12:08 0.25 MG Levetiracetam 500 mg BID PO 01/30/25 22:00 01/31/25 09:20 500 MG Lorazepam 1 mg Q5MINP PRN IV 01/29/25 23:45 Laboratory Results Laboratory Tests 01/28/25 05:31 01/30/25 18:49 Chemistry Test 01/30/25 18:49 Calcium Level 8.6 mg/dL (8.7-10.4) L Urinalysis Test 01/28/25 06:30 Urine Color Light-yellow (Yellow) Urine Clarity Clear (Clear) Urine pH 7.5 (5.0-9.0) Urine Specific [place] 1.015 (1.001-1.035) Urine Protein 3+ (Negative) H Urine Ketones Negative (Negative) Urine Blood Trace /uL (Negative) H Urine Nitrite Negative (Negative) Urine Bilirubin Negative (Negative) Urine Urobilinogen Normal mg/dL (Negative) Urine Leukocyte Esterase Negative /uL (Negative) Urine RBC 1 /hpf (0 - 3) Urine Microscopic WBC 2 /HPF (0-3) Urine Squamous Epithelial Cells Few /hpf (<5) Urine Bacteria Few /hpf (None Seen) H Urine Glucose 3+ mg/dL (Normal) H Blood Gas Results Test 01/30/25 18:31 Arterial Blood pH 7.361 (7.350-7.450) FiO2 % 21.0 Microbiology Microbiology Date/Time Source Procedure Growth Status 01/28/25 01:10 Nose MRSA Screen - Final Complete Labs and/or images reviewed: Labs reviewed by me, Image(s) reviewed by me Assessment/Plan Assessment/Plan 54-year-old male with past medical history of CHF, DM, end-stage renal disease on hemodialysis --, seizures, and hypertension presented to [facility] ED with complaint of seizures. Patient has no recollection of what happened, possibly had a seizure. Patient has been off his Keppra for the past 2 days, since he was told that he was taking too much Keppra. Patient states he was at [facility] 2 days ago where he had dialysis for 3 consecutive days. Patient arrives hypertensive systolic blood pressure greater than 200. Patient was seen and evaluated in the ED, laboratory data shows WBC 9.4, hemoglobin 11.2, hematocrit 32.7, platelets 262, sodium 143, potassium 5.5, BUN 47, creatinine 7.79, GFR 8, glucose 115, calcium 9.0, troponin 16, BNP 579.08, blood pressure 213/111 trending down to 153/86, heart rate 102, temperature 98.4 F, O2 saturation 98% on room air. Head CT showed no acute intracranial abnormality. Please see medication orders section in the computer. On my assessment, patient denied chest pain, no headache, dizziness, diaphoresis, shortness of breaths, no diarrhea, nausea, vomiting, fever, no chills. Patient was admitted for further evaluation and medical management. 01/27: Patient declines visit and exam. He is adamant that he has been compliant with medications. 01/28: We will convert morphine to Dilaudid 0.5 q.4 per patient request. Continue patient's home dose of gabapentin. Patient complaining of leg pain leg neuropathy leg left more than right. Continue ESRD dialysis, today's labs showing ESRD pattern hyperkalemia. Defer to Nephrology. Neurology consulted, we will continue to follow for seizures, if seizure-free by tomorrow we will discharge likely tomorrow a.m.. Continue q.4 neuro checks. 01/29: No further seizures, patient is continues to complain pereira positive ROS,. Asking for shelter placement assisted, asking for PCP changed to another local provider,. Appropriate consults were placed. PT eval also placed. Waiting for neurology eval. We will keep patient inpatient for 1 more day. - Discussed with RN, patient continue saying he is blind but is able to easily reach for food etc.., no seizures 24 hours, patient continues to decline IV Keppra,. Apparently patient recently discharged from another hospital. Is strong concern for malingering at this point. We will start oral Keppra, patient continues to be seizure-free we will discharge in a.m.. 01/30: Patient remains seizure-free. We will discuss with social workers to see patient can get the requested change in PCP and if he qualifies for shelter residential care. Likely discharge today. 01/31: Continue DC plan Diagnosis: Breakthrough seizure Hyperkalemia End-stage renal disease on hemodialysis MWF Hypertensive crisis Generalized weakness Hypertension Diabetes mellitus type 2 Chronic diastolic Congestive heart failure Blindness Wheelchair-bound Anemia of chronic kidney disease Plan: Tele Nephrology consult for ESRD dialysis schedule Thursday. IV fluids Q 4 neuro checks Neurology consult Continue home Keppra dose Continue other home medications Tele Full code Plan discussed with: Patient My Orders Orders - ELDER BABCOCK MD Procedure Category Date Status Time Discharge DISCHARGE 01/30/25 Transmitted 16:24 Abg W/ Co-Ox RT 01/30/25 Logged 17:45 Kub Abdomen Single XY 01/30/25 Resulted View 17:37 Date of Service: Jan 31, 2025 Billing Provider: ELDER BABCOCK MD Common Visit Codes: [id number] INP/OBS CARE(MOD) ELDER BABCOCK MD Jan 31, 2025 12:21
--- NOTE | 2025-01-31 14:51 | DVHPN2 ---
Progress Note Date Seen: Jan 31, 2025 Medical Necessity Reason Pt with a Central, PICC or Fol: No Subjective Patient reports: No new complaints Review of Systems: Deferred Objective vital signs Vital Sign Date Time Temp Pulse Resp B/P (MAP) Pulse Ox O2 Delivery O2 Flow Rate FiO2 01/31/25 12:38 74 15 136/80 01/31/25 12:31 97.8 98 97.8 01/31/25 08:00 Room Air* 0 21 Total Intake and Output 01/30/25 01/30/25 01/31/25 15:00 23:00 07:00 Intake Total 950 ml 500 ml Output Total 700 ml Balance 250 ml 500 ml medications Current Medications Medications Dose Ordered Sig/Misty Route Start Time Stop Time Status Last Admin Dose Admin Carvedilol 12.5 mg Q12HR PO 01/27/25 10:00 01/31/25 09:22 12.5 MG Hydralazine HCl 10 mg Q6HP PRN IV 01/27/25 03:00 01/30/25 05:26 10 MG Multivit/Ca Carb/ B Cmplx/FA/Prenat 1 tab DAILY PO 01/27/25 10:00 01/31/25 09:22 1 TAB Diagnostic Test (Pha) 1 strip ACHS 01/27/25 07:00 01/31/25 11:24 1 STRIP Insulin Human Regular ACHS SC 01/27/25 07:00 01/30/25 22:00 4 UNITS Dextrose 50 ml UD PRN IV 01/27/25 03:00 Sodium Chloride 10 ml Q8HR IV 01/27/25 06:00 01/31/25 13:19 10 ML Acetaminophen/ Hydrocodone Bitart 1 tab Q4HP PRN PO 01/27/25 03:00 01/31/25 09:23 1 TAB Ondansetron HCl 4 mg Q4HP PRN IV 01/27/25 03:00 01/31/25 14:27 4 MG Docusate Sodium 100 mg BIDPRN PRN PO 01/27/25 03:00 Acetaminophen 650 mg Q6HP PRN PO 01/27/25 03:00 Apixaban 2.5 mg BID PO 01/27/25 10:00 01/28/25 10:15 2.5 MG Nitroglycerin 0.4 mg Q5MINP PRN SL 01/27/25 03:15 Sevelamer HCl 2,400 mg TIDWM PO 01/28/25 11:15 01/31/25 12:04 2,400 MG Morphine Sulfate 2 mg Q30M PRN IV 01/29/25 09:00 01/29/25 08:56 2 MG Amlodipine Besylate 10 mg DAILY PO 01/30/25 10:00 01/31/25 09:21 10 MG Hydromorphone HCl 0.25 mg Q6HPRN PRN IV 01/29/25 15:30 01/31/25 12:08 0.25 MG Levetiracetam 500 mg BID PO 01/30/25 22:00 01/31/25 09:20 500 MG Lorazepam 1 mg Q5MINP PRN IV 01/29/25 23:45 Examination: HEENT:Abnormal laboratory and microbiology Laboratory Tests 01/30/25 18:49 01/28/25 05:31 Test 01/30/25 18:49 Range/Units Serum Glucose 93 74-106 mg/dL Microbiology Date/Time Source Procedure Growth Status 01/28/25 01:10 Nose MRSA Screen - Final Complete Problem List/Assessment/Plan Problem List/Assessment/Plan End-stage renal disease on hemodialysis Seizure disorder Hypertension Diabetes mellitus type 2 Chronic diastolic Congestive heart failure Blindness Wheelchair-bound Anemia of chronic kidney disease Hyperphosphatemia Secondary hyperparathyroidism Recommendations hemodialysis 01/31 Epogen subQ 3 times weekly Resume home medication Plan discussed with: Patient My Orders My Orders Orders - SHAYY FERNANDES MD Procedure Category Date Status Time Hemodialysis Orders ORDERS 01/31/25 Transmitted 04:00 SHAYY FERNANDES MD Jan 31, 2025 14:51
== END 2025-01-31 22:50 | disposition home or self-care (01) | DRG 53 ==
LOC: ER 00:58 → EDBD 00:58 → OVERFLOW 03:11 → EDUNIT# 03:11 → TELE-WESTW 23:57
PROVIDERS: ADMIT Student in an Organized Health Care Education/Training Program; ATTEND Student in an Organized Health Care Education/Training Program
PROC: 5A1D70Z Performance of Urinary Filtration, Intermittent, Less than 6 Hours Per Day (ICD-10-PCS; principal; 2025-01-28)
PROC: 5A1D70Z Performance of Urinary Filtration, Intermittent, Less than 6 Hours Per Day (ICD-10-PCS; 2025-01-31)
DX: G40.909 Epilepsy, unspecified, not intractable, without status epilepticus (principal); I13.2 Hypertensive heart and chronic kidney disease with heart failure and with stage 5 chronic kidney disease, or end stage renal disease; N18.6 End stage renal disease; I50.32 Chronic diastolic (congestive) heart failure; D63.1 Anemia in chronic kidney disease; I16.9 Hypertensive crisis, unspecified; E83.39 Other disorders of phosphorus metabolism; Z99.2 Dependence on renal dialysis; E11.22 Type 2 diabetes mellitus with diabetic chronic kidney disease; F20.9 Schizophrenia, unspecified; E87.5 Hyperkalemia; H54.62 Unqualified visual loss, left eye, normal vision right eye; F17.200 Nicotine dependence, unspecified, uncomplicated; N25.81 Secondary hyperparathyroidism of renal origin; Z99.3 Dependence on wheelchair; Z88.0 Allergy status to penicillin; Z88.6 Allergy status to analgesic agent; Z88.1 Allergy status to other antibiotic agents; Z86.73 Personal history of transient ischemic attack (TIA), and cerebral infarction without residual deficits; Z83.3 Family history of diabetes mellitus; Z82.49 Family history of ischemic heart disease and other diseases of the circulatory system; Z79.899 Other long term (current) drug therapy; Z79.01 Long term (current) use of anticoagulants; Z91.148 Patient's other noncompliance with medication regimen for other reason; E11.41 Type 2 diabetes mellitus with diabetic mononeuropathy
CPT/HCPCS: 36415; 36600; 70450; 71045; 74018; 74176; 80048; 80053; 80307; 81001; 82306; 82542; 82550; 82805; 82962; 83605; 83735; 83880; 83970; 84100; 84484; 85025; 87081; 87340; 90935; 93005; 94640; 97116; 97162; 97530; 99291; G0378; J1815; J2405

== ENCOUNTER 2025-02-08 09:31 | Inpatient (IN) | payer MEDICAID ==
[~2025-02-08] VITALS: Ht 185.4 cm; Wt 98.8 kg
[2025-02-08] MEDS ORDERED: SODIUM CHLORIDE 0.9% 1,000 ML IV ONE (10:15)
--- NOTE | 2025-02-08 10:20 | ED.PDOC ---
GI ASSESSMENT HPI Comments 54-year-old male presented to the emergency department complaining of severe abdominal pain with nausea vomiting and diarrhea since yesterday Chief Complaint: Abdominal Pain Time Seen by MD: 09:39 Primary Care Provider: KELLIE Reviewed Notes: Nurses Notes, Medications, Allergies Allergies: Coded Allergies: Aspirin (Unverified Allergy, Unknown, 01/27/25) Azithromycin (Unverified Allergy, Unknown, 01/27/25) Erythromycin (Verified Allergy, Unknown, 04/17/24) Penicillins (Verified Allergy, Unknown, 04/17/24) Home Meds Active Scripts Losartan Potassium (Losartan Potassium) 50 Mg Tab, 100 MG PO DAILY for 30 Days, #60 TAB Prov:GELY SCHROEDER MD 12/31/24 Nifedipine (Nifedipine Er) 30 Mg Tab, 90 MG PO QPM for 30 Days, #90 TAB Prov:GELY SCHROEDER MD 12/31/24 Carvedilol (Carvedilol) 25 Mg Tab, 1 TAB PO BID, #60 TAB 5 Refills Prov:GELY SCHROEDER MD 12/31/24 Hydralazine Hcl (Hydralazine Hcl) 50 Mg Tab, 1 TAB PO TID, #90 TAB Prov:RICKY MARTELL 12/22/24 Dorzolamide HCl-Timolol Maleat (Cosopt 2-0.5 %) 1 Keerthi Keerthi, 1 KEERTHI OP BID for 30 Days, #10 ML 1 Refill Prov:GULSHAN JIMENEZ 11/20/24 Brimonidine Tartrate (Alphagan P) 0.1 % Keerthi, 0.1 % OP TID for 30 Days, #10 ML 1 Refill Prov:GULSHAN JIMENEZ 11/20/24 Hydrocodone-Acetaminophen (Hydrocodone Bitartrate/AC 5-325 mg) 1 Tab Tab, 1-2 TAB PO Q6HP PRN, #30 TAB Prov:QASIM BEJARANO MD 10/28/24 Apixaban Base (ELIQUIS) 2.5 Mg Tab, 2.5 MG PO BID for 30 Days, #60 TAB Prov:BERTRAM LARKIN 08/23/24 Atorvastatin Calcium (Lipitor) 40 Mg Tab, 40 MG PO DAILY for 40 Days, #40 TAB Prov:BERTRAM LARKIN 08/23/24 Bumetanide (Bumetanide) 1 Mg Tab, 1 TAB PO DAILY for 30 Days, #30 TAB Prov:BERTRAM LARKIN RESIDENT 08/23/24 Levetiracetam (Levetiracetam) 1,000 Mg Tab, 1 TAB PO BID for 30 Days, #60 TAB Prov:BERTRAM LARKIN RESIDENT 08/23/24 Reported Medications Quetiapine Fumerate (QUETIAPINE FUMARATE) 50 Mg Tab, 1 TAB PO 06/07/24 Insulin Lispro (Insulin Lispro Thai Kwi) 100 Unit/Ml Inj 06/07/24 Olopatadine HCl (Olopatadine Hydrochloride) 0.1 % Melchor, 1 DROP LEFTEYE BID 06/07/24 Information Source: Patient Mode of Arrival: Wheelchair Timing: Hours Duration: Since onset, Hours Quality: Aching, Burning, Cramping Vomitus: Food Particles Stool: Loose Severity: Moderate Recent: Possible spoiled food Recent Hx of: Diabetes, Current anticoag use Pain Location: RLQ Modifying Factors: Exertion, Food, Movement, Lying still Associated sign and symptoms: Nausea, Vomiting, Diarrhea, Abdominal Pain Past Medical History PAST MEDICAL HISTORY: CHF, DM, ESRD, HTN, Seizures Surgical History: Denies all surgeries Family History Family History: Reviewed,noncontributory to illness Social History Smoker: Cigarettes Alcohol: Denies ETOH Use Drugs: Denies Drug Use Lives In: Assisted Care Constitutional: reports: weakness; denies: chills, diaphoresis, fatigue, fever, malaise, sweats, others EENTM: denies: blurred vision, double vision, ear bleeding, ear discharge, ear drainage, ear pain, ear ringing, eye pain, eye redness, hearing loss, mouth pain, mouth swelling, nasal discharge, nose bleeding, nose congestion, nose pain, photophobia, tearing, throat pain, throat swelling, voice changes, others Respiratory: denies: cough, hemoptysis, orthopnea, SOB at rest, shortness of breath, SOB with excertion, stridor, wheezing, others Cardiovascular: denies: chest pain, dizzy spells, diaphoresis, Dyspnea on exertion, edema, irregular heart beat, left arm pain, lightheadedness, palpitations, PND, syncope, others Gastrointestinal: reports: abdominal pain, diarrhea, nausea, vomiting; denies: abdomen distended, blood streaked bowels, constipated, dysphagia, difficulty swallowing, hematemesis, melena, poor appetite, poor fluid intake, rectal bleeding, rectal pain, others Genitourinary: denies: burning, dysuria, flank pain, frequency, hematuria, incontinence, penile discharge, penile sore, pain, testicle pain, testicle swelling, urgency, others Neurological: denies: dizziness, fainting, headache, left sided numbness, left sided weakness, numbness, paresthesia, pre-existing deficit, right sided numbness, right sided weakness, seizure, speech problems, tingling, tremors, weakness, others Musculoskeletal: denies: back pain, gout, joint pain, joint swelling, muscle pain, muscle stiffness, neck pain, others Integumetry: denies: bruises, change in color, change in hair/nails, dryness, laceration, lesions, lumps, rash, wounds, others Allergic/Immunocompromised: denies: Difficulty Healing, Frequent Infections, Hives, Itching, others Hematologic/Lymphatic: denies: anemia, blood clots, easy bleeding, easy bruising, swollen glands, others Endocrine: denies: excessive hunger, excessive sweating, excessive thirst, excessive urination, flushing, intolerance to cold, intolerance to heat, unexplained weight gain, unexplained weight loss, others Psychiatric: reports: bipolar disorder; denies: anxiety, depression, hopeless, panic disorder, schizophrenia, sleepless, suicidal, others All Other Systems: Reviewed and Negative Physical Exam General Appearance: Moderate Distress, Normal HEENT: Normal ENT Inspection, Other (Patient is blind from glaucoma) Neck: Full Range of Motion, Non-Tender, Normal, Normal Inspection Respiratory: Chest Non-Tender, Lungs Clear, No Accessory Muscle Use, No Respiratory Distress, Normal Breath Sounds Cardiovascular: No Edema, No JVD, No Murmur, No Gallop, Normal Peripheral Pulses, Regular Rate/Rhythm Breast Exam: Deferred Gastrointestinal: Diffuse, No Organomegaly, No Pulsatile Mass, RLQ, RUQ, Tenderness Genitalia: Deferred Pelvic: Deferred Rectal: Deferred Extremities: No calf tenderness, Normal capillary refill, Normal inspection, Normal range of motion, Non-tender, No pedal edema Neurologic: Alert, Motor Weakness, Seizure Cerebellar Function: Unable to Test Reflexes: NOT DONE Skin: Dry, Normal Color, Warm Peripheral Pulses: 1+ carotid (R), 1+ carotid (L) Lymphatic: No Adenopathy Was a procedure done? Was a procedure done?: No GI differential Dx Differential Diagnosis: Appendicitis, Cholecystitis, Constipation, Diverticular disease, Gastritis/PUD, Gastroenteritis, Inflammatory BD, Ischemic Bowel, Pancreatitis, Urinary Obstruction, UTI, Dehydration, Diabetes/ DKA, Drug toxicity, Electrolyte Imbalance, Food Poisoning, Renal Failure, Ischemic Bowel, Mass, Anemia X-Ray, Labs, Meds, VS Vital Signs Date Time Temp Pulse Resp B/P (MAP) Pulse Ox O2 Delivery O2 Flow Rate FiO2 02/08/25 11:46 98.7 79 18 194/115 (141) 99 98.7 02/08/25 09:40 84 02/08/25 09:33 98.1 84 18 165/100 97 98.1 Lab Test 02/08/25 11:07 02/08/25 10:22 Range/Units White Blood Count 7.0 4.4-10.8 10^3/uL Red Blood Count 3.93 L 4.5-5.90 10^6/uL Hemoglobin 11.8 L 13.5-17.5 g/dL Hematocrit 34.7 L 41.0-53.0 % Mean Corpuscular Volume 88.2 80.0-100.0 fL Mean Corpuscular Hemoglobin 30.0 28.0-32.0 pg Mean Corpuscular Hemoglobin Concent 34.0 32.0-36.0 g/dL Red Cell Distribution Width 13.7 11.8-14.3 % Platelet Count 268 140-450 10^3/uL Mean Platelet Volume 7.2 6.9-10.8 fL Neutrophils (%) (Auto) 62.9 37.0-80.0 % Lymphocytes (%) (Auto) 26.3 10.0-50.0 % Monocytes (%) (Auto) 6.5 0.0-12.0 % Eosinophils (%) (Auto) 3.3 0.0-7.0 % Basophils (%) (Auto) 1.0 0.0-2.0 % Neutrophils # (Auto) 4.4 1.6-8.6 10 ^3/uL Lymphocytes # (Auto) 1.8 0.4-5.4 10 ^3/uL Monocytes # (Auto) 0.5 0-1.3 10 ^3/uL Eosinophils # (Auto) 0.2 0-0.8 10 ^3/uL Basophils # (Auto) 0.1 0-0.2 10 ^3/uL Nucleated Red Blood Cells 0.1 % Prothrombin Time 10.3 9.3-11.8 sec Prothrombin Time INR 0.97 0.9-1.15 Activated Partial Thromboplast Time 27.1 24.5-34.5 SEC Sodium Level 143 136-145 mmol/L Potassium Level 5.5 H 3.5-5.1 mmol/L Chloride Level 108 H 98-107 mmol/L Carbon Dioxide Level 21 20-31 mmol/L Anion Gap 14 5-15 Blood Urea Nitrogen 60 H 9-23 mg/dL Creatinine 8.75 H 0.700-1.30 mg/dL Glomerular Filtration Rate Calc 7 >90 mL/min BUN/Creatinine Ratio 6.9 L 10.0-20.0 Serum Glucose 170 H 74-106 mg/dL Calcium Level 8.7 8.7-10.4 mg/dL Magnesium Level 1.9 1.6-2.6 mg/dL Total Bilirubin 0.2 0.2-1.0 mg/dL Aspartate Amino Transferase (AST) 16 13-40 U/L Alanine Aminotransferase (ALT) 18 7-40 U/L Alkaline Phosphatase 93 46-116 U/L Troponin I High Sensitivity 11 </=54 ng/L Total Protein 6.1 5.7-8.2 g/dL Albumin 3.8 3.2-4.8 g/dL Lipase 36 12-53 U/L Urine Color Light-yellow Yellow Urine Clarity Clear Clear Urine pH 7.5 5.0-9.0 Urine Specific [place] 1.018 1.001-1.035 Urine Protein 3+ H Negative Urine Ketones Negative Negative Urine Blood 1+ H Negative /uL Urine Nitrite Negative Negative Urine Bilirubin Negative Negative Urine Urobilinogen Normal Negative mg/dL Urine Leukocyte Esterase Negative Negative /uL Urine RBC 2 0 - 3 /hpf Urine Microscopic WBC 7 H 0-3 /HPF Urine Squamous Epithelial Cells None seen <5 /hpf Urine Bacteria None seen None Seen /hpf Urine Hyaline Casts Mod 0 - 2 /lpf Urine Yeast (Budding) Occasional None Seen /hpf Urine Glucose 3+ H Normal mg/dL X-Ray, Labs, Meds, VS Comment Course in the hospital eventful blood pressure 165/100 Chest x-ray is normal EKG shows normal sinus rhythm at 84 with a right axis deviation Troponin 11 Lipase 36 CBC normal Urine shows 3+ protein 1+ blood and 3+ glucose INR 0.97 CMP potassium at 5.5 BNP 60 creatinine 8.75 with a GFR of seven and a blood sugar of 170 Patient will be admitted to the hospital for further care he is going to need em ergency dialysis Time of 1ST Reevaluation: 10:20 Reevaluation 1ST: Unchanged Patient Education/Counseling: Diagnosis, Treatment, Prognosis Family Education/Counseling: Diagnosis, Treatment, Prognosis, No Family Present SEPSIS Sepsis Screen Date sepsis recognized/suspect: Feb 08, 2025 Time Sepsis recognized/suspect: 934 Recent Procedure: No On Antibiotic Therapy: No Respiratory Rate >20: No Heart Rate >90: No Temp<36 C (96.8 F) or >38.3 C: No SBP <90 or MAP <65 mmHG: No New Acute Mental Status Change: No Is the patient on CPAP, BIPAP,: No Physician Orders Troponin-I Hs (02/08/25 15:00) Troponin-I Hs (02/08/25 18:00) [place]plock Iv (02/08/25 10:05) Blood Pressure (02/08/25 10:05) Chest Two Views Routine (02/08/25 10:05) Electrocardigram (02/08/25 10:05) Sodium Chloride 0.9% (02/08/25 10:15) Ct Ab Pel Wo Con-No Oral Or Iv (02/08/25 10:05) Vital Signs Date Time Temp Pulse Resp B/P (MAP) Pulse Ox O2 Delivery O2 Flow Rate FiO2 02/08/25 11:46 98.7 79 18 194/115 (141) 99 98.7 02/08/25 09:40 84 02/08/25 09:33 98.1 84 18 165/100 97 98.1 Laboratory Tests Test 02/08/25 11:07 White Blood Count 7.0 10^3/uL (4.4-10.8) Departure 1 Departure Time of Disposition: 13:08 Impression: Primary Impression: Acute generalized abdominal pain Additional Impressions: Chronic kidney disease on chronic dialysis Diabetes mellitus with hyperglycemia Qualified Codes: E11.65 - Type 2 diabetes mellitus with hyperglycemia; Z79.4 - longterm (current) use of insulin Generalized weakness Missed dialysis Seizure disorder Blindness Qualified Codes: H54.0X55 - Blindness right eye category 5, blindness left eye category 5 Disposition: 09 ADMITTED INPATIENT Admit to: Med Surg Condition: Serious Critical Care Note Critical Care Time?: No Stability Stability form required: Yes Comments Patient will need emergency dialysis missed his today Heart Score Heart Score: Heart Score Response (Comments) Value History Moderate Suspicious 1 EKG Normal 0 Age 45-64 1 Risk Factors >3 or Hx ASHD 2 Troponin Normal limit 0 Total 4 FLORENTIN MONTANEZ MD Feb 08, 2025 10:20
[2025-02-08 10:30] LABS: Urine Budding Yeast OCCASIONAL /hpf (None Seen); Urine Protein, UAD 3+ (Negative)
[2025-02-08] MEDS: IOHEXOL 300 MG/ML 100ML BOTTLE IJ ONE ×2 (11:01→11:02)
[2025-02-08 11:23] LABS: Hematocrit 34.7 % (41.0-53.0); Hemoglobin 11.8 g/dL (13.5-17.5); Mean Corpuscular Hemoglobin 30.0 pg (28.0-32.0); Mean Corpuscular Volume 88.2 fL (80.0-100.0); Nucleated Red Blood Cells % 0.1 %
[2025-02-08 11:36] LABS: Alanine Aminotransferase 18 U/L (7-40); Albumin 3.8 g/dL (3.2-4.8); Alkaline Phosphatase 93 U/L (46-116); Anion Gap 14 (5-15); BUN/Creatinine Ratio 6.9 (10.0-20.0); Blood Urea Nitrogen 60 mg/dL (9-23); Calcium 8.7 mg/dL (8.7-10.4); Carbon Dioxide 21 mmol/L (20-31); Chloride 108 mmol/L (98-107); Glucose 170 mg/dL (74-106); Lipase 36 U/L (12-53); Magnesium 1.9 mg/dL (1.6-2.6); Potassium 5.5 mmol/L (3.5-5.1); Sodium 143 mmol/L (136-145); Total Protein 6.1 g/dL (5.7-8.2)
[2025-02-08 11:37] LABS: Bilirubin, Total 0.2 mg/dL (0.2-1.0)
[2025-02-08 11:38] LABS: INR 0.97 (0.9-1.15); Partial Thromboplastin Time 27.1 SEC (24.5-34.5); Prothrombin Time 10.3 sec (9.3-11.8)
--- NOTE | 2025-02-08 12:26 | DVH ---
XY CHEST TWO VIEWS ROUTINE CLINICAL HISTORY: abd pain COMPARISON: None TECHNIQUE: Frontal and lateral view of the chest was obtained FINDINGS: Lines and Tubes: None Lungs: No focal consolidation. Pleura: No effusion. No pneumothorax. Cardiomediastinal contours: Unremarkable Bones: No acute osseous abnormality. Dialysis catheter noted. IMPRESSION: 1. No acute cardiopulmonary disease. IPLE DRUM SANDER CALISTA
--- NOTE | 2025-02-08 12:49 | DVH ---
EXAM: CT CT AB PEL WO CON-NO ORAL OR IV INDICATION: Right-sided abdominal pain with nausea and vomiting TECHNIQUE: Volumetric multidetector CT images of the abdomen and pelvis were obtained without contrast. All CT scans at this facility use dose modulation, iterative reconstruction, and/or weight based dosing when appropriate to reduce radiation dose to as low as reasonably achievable. COMPARISON: CT CT AB PEL WO CON-NO ORAL OR IV on DOS: 01/27/25 FINDINGS: [LOWER CHEST]: The partially visualized lung bases are clear without a pleural effusion. The cardiac size is normal without pericardial effusion. [LIVER]: Normal hepatic size without suspicious focal lesion. [GALLBLADDER AND BILIARY TREE]: No cholelithiasis. [SPLEEN]: Unremarkable. [PANCREAS]: Unremarkable. [ADRENAL GLANDS]: Unremarkable [KIDNEYS]: No hydronephrosis. No nephroureterolithiasis. No suspicious focal lesion. [BLADDER]: Circumferential bladder wall thickening, which may be seen in the setting of acute versus chronic cystitis and correlate with urinalysis. [REPRODUCTIVE ORGANS]: Unremarkable. [BOWEL/MESENTERY]: Stomach is normal. No CT evidence of bowel obstruction. fluid-filled multiple small bowel loops without significant distention or dilation. [ASCITES]: Absent [LYMPHADENOPATHY]: No pathologically enlarged lymph nodes by CT size criteria [VASCULATURE]: No aneurysmal dilatation. [ABDOMINAL WALL]: Unremarkable. [MUSCULOSKELETAL]: No acute fracture or aggressive focal osseous lesion. Multifocal degenerative change of the visualized spine. grade 1 anterolisthesis L5 over S1. Chronic bilateral L5 pars defects. Trace retrolisthesis L1 over L2 with posterior disc osteophyte complex. 10 percent superior endplate height loss of T12. IMPRESSION: 1. Circumferential bladder wall thickening and correlate with urinalysis for underlying acute versus chronic cystitis. 2. Fluid-filled small bowel loops without significant distention or dilation. 3. Correlate for underlying enteritis. 4. Gallstone without definitive CT evidence of acute cholecystitis. Correlate with right upper quadrant ultrasound if clinically indicated. 5. Poor visualization of the appendix. No secondary inflammatory stranding in the right lower quadrant.
[2025-02-08] MEDS: METOCLOPRAMIDE HCL 5MG/ml INJ 2ml VIAL IV ONE (13:51)
[2025-02-08] MEDS: SODIUM CHLORIDE 0.9% 500 ML IVB ONE (13:52)
[2025-02-08] MEDS: MORPHINE SULFATE 4 MG/ML SYR/VIAL IV ONE (13:52)
[2025-02-08] MEDS ORDERED: NITROGLYCERIN 0.4 MG SL TAB SL PRN (16:00)
--- NOTE | 2025-02-08 16:45 | DVHHPRES ---
History of Present Illness Resident Creating Document: CASTRO GARRETT RESIDENT History of Present Illness [facility] Patient is a 54-year-old male with a medical history of end-stage renal disease on dialysis Thursday, hypertension, insulin-dependent type 2 diabetes mellitus, atrial fibrillation, seizures, bipolar/schizophrenia patient presents to the ED with a chief complaint of nausea vomiting and abdominal pain that started last night. Patient reports he had right upper quadrant pain which was nonradiating, [id number] in intensity, no relieving factors, wors ened after food intake, had associated nausea and multiple episodes of vomiting yesterday and in the morning following which she came to the hospital for further evaluation. Patient does not report of having similar pain prior to this episode. On arrival to the ER patient was seen to be hypertensive, no fever, labs showed mild normocytic normochromic anemia, normal WBC count, ramin vated BUN and creatinine with a hyperkalemia. CT abdomen pelvis without contrast was done which showed large gallstone, fluid-filled small bowel loops without significant distention no dilation, circumferential gallbladder wall thickening. Past medical history: As per HPI Past surgical history: Left lower extremity surgery for fracture, skull fracture surgery, right subclavian tunneled dialysis catheter Social history: Patient currently smokes about pack of cigarettes per week, denies alcohol or any other drug use Home medications: Eliquis 2.5 b.i.d., atorvastatin 40 daily, carvedilol 25 b.i.d., hydralazine 50 t.i.d., Keppra 1000 b.i.d., nifedipine 90 daily, quetiapine 50 daily Review of Systems Review of Systems Patient reports abdominal pain has improved and currently denies any nausea or vomiting Had few episodes of diarrhea in the morning, no blood seen Denies fever, chills, cough, chest pain Allergies: Coded Allergies: Aspirin (Unverified Allergy, Unknown, 01/27/25) Azithromycin (Unverified Allergy, Unknown, 01/27/25) Erythromycin (Verified Allergy, Unknown, 04/17/24) Penicillins (Verified Allergy, Unknown, 04/17/24) Medications Current Medications Medications Dose Ordered Sig/Misty Route Start Time Stop Time Status Last Admin Dose Admin Nitroglycerin 0.4 mg Q5MINP PRN SL 02/08/25 16:00 Morphine Sulfate 2 mg Q30M PRN IV 02/08/25 16:00 Nifedipine 90 mg DAILY PO 02/09/25 10:00 Hydralazine HCl 50 mg Q8HR PO 02/08/25 22:00 Carvedilol 25 mg Q12HR PO 02/08/25 22:00 Quetiapine Fumarate 50 mg HS PO 02/08/25 22:00 Ondansetron HCl 4 mg Q6HPRN PRN IV 02/08/25 16:00 Exam Vital Signs Vital Signs Date Time Temp Pulse Resp B/P (MAP) Pulse Ox O2 Delivery O2 Flow Rate FiO2 02/08/25 13:52 81 16 199/114 02/08/25 13:51 98 02/08/25 11:46 98.7 98.7 Exam Skin - Patients skin is warm and dry. HEENT - normocephalic, atraumatic, moist mucous membranes, no pallor, no icterus Neck - full ROM, no LAD, no JVD Pulmonary - B/L decreased breath sounds without any rales or wheezing cardiovascular - regular S1,S2 heard, no added sounds, no murmurs heard. peripheral pulses normal radial 2+, pedal 2+. capillary refill normal <2 secs. GI - soft abdomen with tenderness to palpation in the right upper quadrant and the right lumbar quadrant, positive Deal sign. no hepatospleenomegaly. Bowel sounds normoactive Neurological - Patient is A/O X 4 . Bilateral upper extremity strength 5/5, bilateral lower extremity strength 4/5, no facial droop, normal speech, no tremor, no sensory deficiets, patient reports to be legally blind Labs/Xrays Labs Test 02/08/25 15:04 02/08/25 11:07 02/08/25 10:22 Range/Units Troponin I High Sensitivity 11 </=54 ng/L White Blood Count 7.0 4.4-10.8 10^3/uL Red Blood Count 3.93 L 4.5-5.90 10^6/uL Hemoglobin 11.8 L 13.5-17.5 g/dL Hematocrit 34.7 L 41.0-53.0 % Mean Corpuscular Volume 88.2 80.0-100.0 fL Mean Corpuscular Hemoglobin 30.0 28.0-32.0 pg Mean Corpuscular Hemoglobin Concent 34.0 32.0-36.0 g/dL Red Cell Distribution Width 13.7 11.8-14.3 % Platelet Count 268 140-450 10^3/uL Mean Platelet Volume 7.2 6.9-10.8 fL Neutrophils (%) (Auto) 62.9 37.0-80.0 % Lymphocytes (%) (Auto) 26.3 10.0-50.0 % Monocytes (%) (Auto) 6.5 0.0-12.0 % Eosinophils (%) (Auto) 3.3 0.0-7.0 % Basophils (%) (Auto) 1.0 0.0-2.0 % Neutrophils # (Auto) 4.4 1.6-8.6 10 ^3/uL Lymphocytes # (Auto) 1.8 0.4-5.4 10 ^3/uL Monocytes # (Auto) 0.5 0-1.3 10 ^3/uL Eosinophils # (Auto) 0.2 0-0.8 10 ^3/uL Basophils # (Auto) 0.1 0-0.2 10 ^3/uL Nucleated Red Blood Cells 0.1 % Prothrombin Time 10.3 9.3-11.8 sec Prothrombin Time INR 0.97 0.9-1.15 Activated Partial Thromboplast Time 27.1 24.5-34.5 SEC Sodium Level 143 136-145 mmol/L Potassium Level 5.5 H 3.5-5.1 mmol/L Chloride Level 108 H 98-107 mmol/L Carbon Dioxide Level 21 20-31 mmol/L Anion Gap 14 5-15 Blood Urea Nitrogen 60 H 9-23 mg/dL Creatinine 8.75 H 0.700-1.30 mg/dL Glomerular Filtration Rate Calc 7 >90 mL/min BUN/Creatinine Ratio 6.9 L 10.0-20.0 Serum Glucose 170 H 74-106 mg/dL Calcium Level 8.7 8.7-10.4 mg/dL Magnesium Level 1.9 1.6-2.6 mg/dL Total Bilirubin 0.2 0.2-1.0 mg/dL Aspartate Amino Transferase (AST) 16 13-40 U/L Alanine Aminotransferase (ALT) 18 7-40 U/L Alkaline Phosphatase 93 46-116 U/L Total Protein 6.1 5.7-8.2 g/dL Albumin 3.8 3.2-4.8 g/dL Lipase 36 12-53 U/L Urine Color Light-yellow Yellow Urine Clarity Clear Clear Urine pH 7.5 5.0-9.0 Urine Specific [place] 1.018 1.001-1.035 Urine Protein 3+ H Negative Urine Ketones Negative Negative Urine Blood 1+ H Negative /uL Urine Nitrite Negative Negative Urine Bilirubin Negative Negative Urine Urobilinogen Normal Negative mg/dL Urine Leukocyte Esterase Negative Negative /uL Urine RBC 2 0 - 3 /hpf Urine Microscopic WBC 7 H 0-3 /HPF Urine Squamous Epithelial Cells None seen <5 /hpf Urine Bacteria None seen None Seen /hpf Urine Hyaline Casts Mod 0 - 2 /lpf Urine Yeast (Budding) Occasional None Seen /hpf Urine Glucose 3+ H Normal mg/dL SEPSIS Sepsis Screen Date sepsis recognized/suspect: Feb 08, 2025 Time Sepsis recognized/suspect: 934 Recent Procedure: No On Antibiotic Therapy: No Respiratory Rate >20: No Heart Rate >90: No Temp<36 C (96.8 F) or >38.3 C: No SBP <90 or MAP <65 mmHG: No New Acute Mental Status Change: No Is the patient on CPAP, BIPAP,: No Physician Orders Heplock Iv (02/08/25 10:05) Blood Pressure (02/08/25 10:05) Chest Two Views Routine (02/08/25 10:05) Electrocardigram (02/08/25 10:05) Sodium Chloride 0.9% (02/08/25 10:15) Ct Ab Pel Wo Con-No Oral Or Iv (02/08/25 10:05) Admit (02/08/25 15:52) Nitroglycerin Sublingual (Ntrostat Subli (02/08/25 16:00) Morphine Sulfate Injection (02/08/25 16:00) Oxygen By Nasal Cannula (02/08/25 15:52) Stat Ekg For Chest Pain (02/08/25 15:52) Notify Md Of Changes From Base (02/08/25 15:52) Home Improvement Contractor For 24 Hours (02/08/25 15:52) Emergency Dysrhythmia Protocol (02/08/25 15:52) Gallbladder (02/08/25 15:52) Nifedipine Er (Procardia Xl (Time-Releas (02/09/25 10:00) Hydralazine Hcl Tablet (Apresoline Table (02/08/25 22:00) Carvedilol Tablet (Coreg Tablet) (02/08/25 22:00) Quetiapine Fumarate Tablet (Seroquel Tab (02/08/25 22:00) Ondansetron Hcl (Zofran) (02/08/25 16:00) Vital Signs Date Time Temp Pulse Resp B/P (MAP) Pulse Ox O2 Delivery O2 Flow Rate FiO2 02/08/25 13:52 81 16 199/114 02/08/25 13:51 81 16 199/114 (142) 98 02/08/25 11:46 98.7 79 18 194/115 (141) 99 98.7 02/08/25 09:40 84 02/08/25 09:33 98.1 84 18 165/100 97 98.1 Laboratory Tests Test 02/08/25 11:07 White Blood Count 7.0 10^3/uL (4.4-10.8) Medications Medications Dose Ordered Sig/Misty Route Start Time Stop Time Status Last Admin Dose Admin Metoclopramide HCl 10 mg ONCE ONCE IV 02/08/25 10:15 02/08/25 10:16 DC 02/08/25 13:51 10 MG Morphine Sulfate 3 mg ONCE ONCE IV 02/08/25 10:15 02/08/25 10:16 DC 02/08/25 13:52 3 MG Sodium Chloride 500 ml @ 500 mls/hr Q1H ONCE IVB 02/08/25 10:15 02/08/25 11:14 DC 02/08/25 13:52 500 MLS/HR Assessment/Plan Assessment/Plan Acute intractable abdominal pain Cholelithiasis, rule out cholecystitis Possible acute gastroenteritis - CT abdomen pelvis reviewed - gallbladder ultrasound pending - clear liquid diet - surgical consult Hypertensive heart disease Hypertensive emergency H/o Dyslipidemia Paroxysmal atrial fibrillation - continued on carvedilol 25 b.i.d., hydralazine 50 t.i.d., nifedipine 90 daily - held anticoagulation in case the patient needs surgery End-stage renal disease on dialysis MWF Hyperkalemia - nephrology consulted - hyperkalemia protocol given - monitor electrolytes Insulin-dependent Type 2 diabetes mellitus with a hyperglycemia - insulin Lantus 10 units at night ( at home takes 20) - mild insulin sliding scale History of seizure disorder History of schizophrenia/bipolar - continued on Keppra 500 b.i.d., quetiapine 50 mg HS PUD prophylaxis: Protonix DVT prophylaxis: Heparin Goals of care discussed with the patient for over 90 minutes. Full code Time spent: 37 minutes Plan discussed with Dr. Ross Plan discussed with: Patient, Other (RN) My Orders Orders - CASTRO GARRETT RESIDENT Procedure Category Date Status Time Admit ADMIT 02/08/25 Transmitted 15:52 Nitroglycerin PHA 02/08/25 In Process Sublingual (Ntrostat 16:00 Morphine Sulfate PHA 02/08/25 In Process Injection 16:00 Oxygen By Nasal RT 02/08/25 Transmitted Cannula 15:52 Stat Ekg For Chest YOLY 02/08/25 In Process Pain 15:52 Notify Md Of Changes [facility] 02/08/25 In Process From Base 15:52 Home Improvement Contractor For [facility] 02/08/25 In Process 24 Hours 15:52 Emergency Dysrhythmia [facility] 02/08/25 In Process Protocol 15:52 Gallbladder US 02/08/25 Logged 15:52 Nifedipine Er PHA 02/09/25 In Process (Procardia Xl 10:00 Hydralazine Hcl PHA 02/08/25 In Process Tablet (Apresoline 22:00 Carvedilol Tablet PHA 02/08/25 In Process (Coreg Tablet) 22:00 Quetiapine Fumarate PHA 02/08/25 In Process Tablet (Seroquel Tab 22:00 Ondansetron Hcl PHA 02/08/25 In Process (Zofran) 16:00 Date of Service: Feb 08, 2025 Billing Provider: EPGGY ROSS MD Common Visit Codes: 19697-[id number] INP/OBS CARE (HIGH) Secondary Visit Codes: 70092-[id number] CARE PLAN 30 MINUTES CASTRO GARRETT RESIDENT Feb 08, 2025 16:45 PEGGY ROSS MD Feb 11, 2025 13:18
[2025-02-08] MEDS: DEXTROSE (50%) 50ML SYRG IV ONE (16:48)
[2025-02-08] MEDS: FUROSEMIDE 40 MG/4 ML VIAL IV ONE (16:48)
[2025-02-08] MEDS: SODIUM ZIRCONIUM CYCL 10 GM PAK PO ONE (16:48)
[2025-02-08] MEDS: InsuLIN REG 1unit/0.01ml Soln (100units/ml) IV ONE (16:58)
[2025-02-08] MEDS: PANTOPRAZOLE 40 MG TAB PO ONE (16:58)
--- NOTE | 2025-02-08 17:47 | DVH ---
INDICATION: RUQ pain TECHNIQUE: Multiple real-time sonographic images were obtained of the right upper quadrant. COMPARISON: None FINDINGS: Liver is normal in size measuring 14.3 cm. Focal lesion. CBD measures 0.4 cm, within normal limits. Gallstone in the gallbladder with borderline wall thickening measuring 0.4 cm and gallbladder distention. No distention or inflammatory changes. Sonographic martinez's sign is negative. The right kidney measures 9.6 cm. The right kidney is normal in contour, size, and shape. The echogenicity is normal. There is no hydronephrosis. The pancreas is not well visualized due to overlying bowel gas. IMPRESSION: Gallstones, borderline wall thickening, and gallbladder distention suspicious for early acute cholecystitis. No significant pericholecystic edema at this time however. Sonographic martinez's sign is negative. Close follow-up recommended.
[2025-02-08 18:37] LABS: Sodium 141 mmol/L (136-145)
[2025-02-08 18:38] LABS: Anion Gap 14 (5-15)
[2025-02-08] MEDS: ALBUTEROL SULF 2.5 MG/0.5ML(0.5%) NEB SOLN NEB ONE (18:38)
[2025-02-08 18:44] LABS: BUN/Creatinine Ratio 6.9 (10.0-20.0); Blood Urea Nitrogen 61 mg/dL (9-23); Calcium 8.5 mg/dL (8.7-10.4); Carbon Dioxide 19 mmol/L (20-31); Chloride 108 mmol/L (98-107); Glucose 89 mg/dL (74-106); Potassium 5.1 mmol/L (3.5-5.1)
--- NOTE | 2025-02-08 19:07 | ECG ---
[facility] Test Date: 2025-02-08 Test Time: 09:40:00 Pat Name: ASHELY ZELAYA Department: ED Room: [address] [place] [address] Gender: M Green Building Architect: SANAM : [id number] Requested By: FLORENTIN MONTANEZ Order Number: [id number] Reading MD: Andrew Fish Measurements Intervals [place] Rate: 84 P: 0 SD: 65 QRS: 111 QRSD: 90 T: 260 QT: 373 QTc: 441 Interpretive Statements Sinus rhythm Short SD interval Right axis deviation Nonspecific T abnormalities, lateral leads Baseline wander in lead(s) V3 Electronically Signed On 02-09-2025 11:43:06 PST by Andrew Fish Please click the below link to view image of tracing.
[2025-02-08] MEDS: ALBUTEROL SULF 2.5 MG/0.5ML(0.5%) NEB SOLN ONE (20:46)
[2025-02-08] MEDS ORDERED: ENOXAPARIN SOD 100 MG/1 ML SYRINGE SC SCH (22:00)
[2025-02-08 22:45] VITALS: PULSE 85; RESP 18; O2SAT 98
[2025-02-08] MEDS: levETIRAcetam 500 MG TAB PO SCH (22:48)
[2025-02-08] MEDS: CARVEDILOL 12.5 MG TAB PO SCH (22:48)
[2025-02-08] MEDS: HEPARIN SODIUM (PORCINE) 5000 UNITS/ML 1ML VIAL SC SCH (22:49)
[2025-02-08 23:55] VITALS: BP 93/51; PULSE 78; RESP 17; TEMP 98.1; O2SAT 96
[2025-02-09] VITALS (9 sets, daily range): BP systolic 101–138; BP diastolic 51–80; PULSE 73–84; RESP 12–20; TEMP 97.6–98.5; O2SAT 95–98
[2025-02-09] MEDS: HYDROcodone-ACET 5/325MG TAB PO ONE (00:55)
[2025-02-09] MEDS: PANTOPRAZOLE 40 MG TAB PO SCH (05:11)
[2025-02-09 08:07] LABS: Hematocrit 26.9 % (41.0-53.0); Hemoglobin 9.3 g/dL (13.5-17.5); Mean Corpuscular Hemoglobin 30.5 pg (28.0-32.0); Mean Corpuscular Volume 88.7 fL (80.0-100.0); Nucleated Red Blood Cells % 0.0 %
[2025-02-09 09:33] LABS: Alanine Aminotransferase 14 U/L (7-40); Alkaline Phosphatase 74 U/L (46-116); Anion Gap 14 (5-15); Potassium 4.7 mmol/L (3.5-5.1); Sodium 141 mmol/L (136-145)
[2025-02-09 09:35] LABS: Calcium 8.3 mg/dL (8.7-10.4); Carbon Dioxide 19 mmol/L (20-31); Chloride 108 mmol/L (98-107)
[2025-02-09 09:36] LABS: BUN/Creatinine Ratio 7.0 (10.0-20.0)
[2025-02-09 09:46] LABS: Albumin 3.2 g/dL (3.2-4.8); Bilirubin, Total < 0.2 mg/dL (0.2-1.0); Blood Urea Nitrogen 65 mg/dL (9-23); Glucose 155 mg/dL (74-106); Total Protein 5.4 g/dL (5.7-8.2)
[2025-02-09] MEDS: SODIUM CHL 0.9% 1000 ML BAG XX ONE (14:45)
[2025-02-09 15:12] LABS: Iron 90.0 ug/dL (65-175)
[2025-02-09 15:18] LABS: Total Iron Binding Capacity 226.0 ug/dL (250-425)
--- NOTE | 2025-02-09 15:54 | DVHINCON2 ---
Date of service: Feb 09, 2025 Reason for Consultation ESRD History of Present Illness 54 year old male hx ESRD p/w abdomen pain diagnosed with cholecystitis Past Medical History esrd schizophrenia seizures dm2 htn Allergies: Coded Allergies: Aspirin (Unverified Allergy, Unknown, 01/27/25) Azithromycin (Unverified Allergy, Unknown, 01/27/25) Erythromycin (Verified Allergy, Unknown, 04/17/24) Penicillins (Verified Allergy, Unknown, 04/17/24) Home Meds Active Scripts Losartan Potassium (Losartan Potassium) 50 Mg Tab, 100 MG PO DAILY for 30 Days, #60 TAB Prov:GELY SCHROEDER MD 12/31/24 Nifedipine (Nifedipine Er) 30 Mg Tab, 90 MG PO QPM for 30 Days, #90 TAB Prov:GELY SCHROEDER MD 12/31/24 Carvedilol (Carvedilol) 25 Mg Tab, 1 TAB PO BID, #60 TAB 5 Refills Prov:GELY SCHROEDER MD 12/31/24 Hydralazine Hcl (Hydralazine Hcl) 50 Mg Tab, 1 TAB PO TID, #90 TAB Prov:RICKY MARTELL RESIDENT 12/22/24 Dorzolamide HCl-Timolol Maleat (Cosopt 2-0.5 %) 1 Keerthi Keerthi, 1 KEERTHI OP BID for 30 Days, #10 ML 1 Refill Prov:GULSHAN JIMENEZ RESIDENT 11/20/24 Hydrocodone-Acetaminophen (Hydrocodone Bitartrate/AC 5-325 mg) 1 Tab Tab, 1-2 TAB PO Q6HP PRN, #30 TAB Prov:QASIM BEJARANO MD 10/28/24 Atorvastatin Calcium (Lipitor) 40 Mg Tab, 40 MG PO DAILY for 40 Days, #40 TAB Prov:BERTRAM LARKIN RESIDENT 08/23/24 Bumetanide (Bumetanide) 1 Mg Tab, 1 TAB PO DAILY for 30 Days, #30 TAB Prov:BERTRAM ALRKIN RESIDENT 08/23/24 Levetiracetam (Levetiracetam) 1,000 Mg Tab, 1 TAB PO BID for 30 Days, #60 TAB Prov:BERTRAM LARKIN RESIDENT 08/23/24 Reported Medications Quetiapine Fumerate (QUETIAPINE FUMARATE) 50 Mg Tab, 1 TAB PO 06/07/24 Insulin Lispro (Insulin Lispro Thai Kwi) 100 Unit/Ml Inj 06/07/24 Olopatadine HCl (Olopatadine Hydrochloride) 0.1 % Melchor, 1 DROP LEFTEYE BID 06/07/24 Current Medications Current Medications Medications (Trade) Dose Ordered Sig/Misty Route PRN Reason Start Time Stop Time Status Last Admin Nitroglycerin (Ntrostat Sublingual) 0.4 mg Q5MINP PRN SL FOR CHEST PAIN 02/08/25 16:00 Morphine Sulfate 2 mg Q30M PRN IV FOR CHEST PAIN 02/08/25 16:00 Nifedipine (Procardia Xl (Time-Release)) 90 mg DAILY PO 02/09/25 10:00 02/09/25 09:55 Hydralazine HCl (Apresoline Tablet) 50 mg Q8HR PO 02/08/25 22:00 02/09/25 14:08 Carvedilol (Coreg Tablet) 25 mg Q12HR PO 02/08/25 22:00 02/09/25 09:54 Quetiapine Fumarate (SEROquel TABLET) 50 mg HS PO 02/08/25 22:00 02/08/25 22:47 Ondansetron HCl (Zofran) 4 mg Q6HPRN PRN IV NAUSEA / VOMITING 02/08/25 16:00 Pantoprazole Sodium (Protonix Tablet) 40 mg DAILY@0600 PO 02/09/25 06:00 02/09/25 05:11 Enoxaparin Sodium (Lovenox) 80 mg Q12HR SC 02/08/25 22:00 02/08/25 16:40 DC Levetiracetam (Keppra Tablet) 500 mg BID PO 02/08/25 22:00 02/09/25 09:54 Heparin Sodium (Porcine) 5,000 units Q12HR SC 02/08/25 22:00 02/08/25 22:49 Ceftriaxone Sodium 50 ml @ 100 mls/hr DAILY@09 IV 02/10/25 09:00 Future Hold Metronidazole 100 ml @ 100 mls/hr Q8HR IV 02/09/25 14:00 Family History: Diabetes mellitus G8 MOTHER, FH: CHF (congestive heart failure) G8 FATHER, Review of Systems abdomen pain H&P Exam Vital Signs/I&O Vital Sign Date Time Temp Pulse Resp B/P (MAP) Pulse Ox O2 Delivery O2 Flow Rate FiO2 02/09/25 14:08 135/77 02/09/25 13:00 97.6 79 16 97 97.6 02/09/25 08:00 Room Air* 0 21 Intake and Output 02/08/25 02/09/25 19:00 07:00 Intake Total 500 ml 300 ml Balance 500 ml 300 ml Intake Oral 300 ml IV Total 500 ml Physical Exam middle age male irritable NAD tunnel HD catheter Labs/Diagnostic Data Labs/Diagnostic Data Laboratory Tests Test 02/09/25 07:42 02/08/25 18:12 02/08/25 15:04 02/08/25 13:00 Range/Units White Blood Count 6.7 4.4-10.8 10^3/uL Red Blood Count 3.03 L 4.5-5.90 10^6/uL Hemoglobin 9.3 #L 13.5-17.5 g/dL Hematocrit 26.9 #L 41.0-53.0 % Mean Corpuscular Volume 88.7 80.0-100.0 fL Mean Corpuscular Hemoglobin 30.5 28.0-32.0 pg Mean Corpuscular Hemoglobin Concent 34.4 32.0-36.0 g/dL Red Cell Distribution Width 13.7 11.8-14.3 % Platelet Count 214 140-450 10^3/uL Mean Platelet Volume 7.2 6.9-10.8 fL Neutrophils (%) (Auto) 53.2 37.0-80.0 % Lymphocytes (%) (Auto) 34.6 10.0-50.0 % Monocytes (%) (Auto) 7.9 0.0-12.0 % Eosinophils (%) (Auto) 3.5 0.0-7.0 % Basophils (%) (Auto) 0.8 0.0-2.0 % Neutrophils # (Auto) 3.6 1.6-8.6 10 ^3/uL Lymphocytes # (Auto) 2.3 0.4-5.4 10 ^3/uL Monocytes # (Auto) 0.5 0-1.3 10 ^3/uL Eosinophils # (Auto) 0.2 0-0.8 10 ^3/uL Basophils # (Auto) 0.1 0-0.2 10 ^3/uL Nucleated Red Blood Cells 0.0 % Sodium Level 141 141 136-145 mmol/L Potassium Level 4.7 5.1 3.5-5.1 mmol/L Chloride Level 108 H 108 H 98-107 mmol/L Carbon Dioxide Level 19 L 19 L 20-31 mmol/L Anion Gap 14 14 5-15 Blood Urea Nitrogen 65 H 61 H 9-23 mg/dL Creatinine 9.26 H 8.83 H 0.700-1.30 mg/dL Glomerular Filtration Rate Calc 6 7 >90 mL/min BUN/Creatinine Ratio 7.0 L 6.9 L 10.0-20.0 Serum Glucose 155 H 89 74-106 mg/dL Calcium Level 8.3 L 8.5 L 8.7-10.4 mg/dL Phosphorus Level 8.3 H 2.4-5.1 mg/dL Iron Level 90 65-175 ug/dL Total Iron Binding Capacity 226 L 250-425 ug/dL Percent Iron Saturation 39.8 20-55 % Ferritin 351.9 H 22-322 ng/mL Total Bilirubin < 0.2 L 0.2-1.0 mg/dL Aspartate Amino Transferase (AST) 13 13-40 U/L Alanine Aminotransferase (ALT) 14 7-40 U/L Alkaline Phosphatase 74 46-116 U/L Total Protein 5.4 L 5.7-8.2 g/dL Albumin 3.2 3.2-4.8 g/dL Parathyroid Hormone (Intact) 385.2 H 18.4-80.1 pg/mL Troponin I High Sensitivity 11 11 </=54 ng/L Test 02/08/25 11:07 02/08/25 10:22 Range/Units White Blood Count 7.0 4.4-10.8 10^3/uL Red Blood Count 3.93 L 4.5-5.90 10^6/uL Hemoglobin 11.8 L 13.5-17.5 g/dL Hematocrit 34.7 L 41.0-53.0 % Mean Corpuscular Volume 88.2 80.0-100.0 fL Mean Corpuscular Hemoglobin 30.0 28.0-32.0 pg Mean Corpuscular Hemoglobin Concent 34.0 32.0-36.0 g/dL Red Cell Distribution Width 13.7 11.8-14.3 % Platelet Count 268 140-450 10^3/uL Mean Platelet Volume 7.2 6.9-10.8 fL Neutrophils (%) (Auto) 62.9 37.0-80.0 % Lymphocytes (%) (Auto) 26.3 10.0-50.0 % Monocytes (%) (Auto) 6.5 0.0-12.0 % Eosinophils (%) (Auto) 3.3 0.0-7.0 % Basophils (%) (Auto) 1.0 0.0-2.0 % Neutrophils # (Auto) 4.4 1.6-8.6 10 ^3/uL Lymphocytes # (Auto) 1.8 0.4-5.4 10 ^3/uL Monocytes # (Auto) 0.5 0-1.3 10 ^3/uL Eosinophils # (Auto) 0.2 0-0.8 10 ^3/uL Basophils # (Auto) 0.1 0-0.2 10 ^3/uL Nucleated Red Blood Cells 0.1 % Prothrombin Time 10.3 9.3-11.8 sec Prothrombin Time INR 0.97 0.9-1.15 Activated Partial Thromboplast Time 27.1 24.5-34.5 SEC Sodium Level 143 136-145 mmol/L Potassium Level 5.5 H 3.5-5.1 mmol/L Chloride Level 108 H 98-107 mmol/L Carbon Dioxide Level 21 20-31 mmol/L Anion Gap 14 5-15 Blood Urea Nitrogen 60 H 9-23 mg/dL Creatinine 8.75 H 0.700-1.30 mg/dL Glomerular Filtration Rate Calc 7 >90 mL/min BUN/Creatinine Ratio 6.9 L 10.0-20.0 Serum Glucose 170 H 74-106 mg/dL Calcium Level 8.7 8.7-10.4 mg/dL Magnesium Level 1.9 1.6-2.6 mg/dL Total Bilirubin 0.2 0.2-1.0 mg/dL Aspartate Amino Transferase (AST) 16 13-40 U/L Alanine Aminotransferase (ALT) 18 7-40 U/L Alkaline Phosphatase 93 46-116 U/L Troponin I High Sensitivity 11 </=54 ng/L Total Protein 6.1 5.7-8.2 g/dL Albumin 3.8 3.2-4.8 g/dL Lipase 36 12-53 U/L Urine Color Light-yellow Yellow Urine Clarity Clear Clear Urine pH 7.5 5.0-9.0 Urine Specific [place] 1.018 1.001-1.035 Urine Protein 3+ H Negative Urine Ketones Negative Negative Urine Blood 1+ H Negative /uL Urine Nitrite Negative Negative Urine Bilirubin Negative Negative Urine Urobilinogen Normal Negative mg/dL Urine Leukocyte Esterase Negative Negative /uL Urine RBC 2 0 - 3 /hpf Urine Microscopic WBC 7 H 0-3 /HPF Urine Squamous Epithelial Cells None seen <5 /hpf Urine Bacteria None seen None Seen /hpf Urine Hyaline Casts Mod 0 - 2 /lpf Urine Yeast (Budding) Occasional None Seen /hpf Urine Glucose 3+ H Normal mg/dL Assessment ESRD schizophrenia seizure acute cholecystitis hyperkalemia anemia CKD HD today Surgery on case possible procedure tomorrow OSMAN 3x a week Plan discussed with: Patient SHAHID GARSIA MD Feb 09, 2025 15:53
--- NOTE | 2025-02-09 17:12 | DVHPNRES ---
Progress Note Date Seen: Feb 09, 2025 Resident Creating Document: JUANI LIMA RESIDENT Medical Necessity Reason Pt with a Central, PICC or Fol: No Subjective Review of Systems This is a 54-year-old male with past medical history of diabetes mellitus, hypertension Thursday, congestive heart failure, dyslipidemia, seizures, schizophrenia presents with complaint of abdominal pains, vomiting, diarrhea Since 1 day. He rated the abdominal pain 10 on 10. He says that he felt like the ribs were breaking. Patient also complains of pain in legs CP. The pain is chronic due to diabetic neuropathy. PMHx:diabetes mellitus, hypertension, ESRD PSHx: Skull fracture surgery, left lower extremity surgery for fracture Family history: nonrelevant Social history: 10 pack year smoking history denies alcohol or drug use Home medication: patient does not remember Allergic history: aspirin, azithromycin, erythromycin, penicillin General: patient denies fever, fatigue, weaknes, sweating, any recent changes in appetite and weight HEENT: No headaches, visiual changes, hearing loss, tinnitus, nasal congestion and discharge, and sore throat. Cardiovascular: Denies chest pain, palpitations, dyspnea on exertion, orthopnea, or claudication. Respiratory: No cough, and wheezing. Gastrointestinal: complains of abdominal pain and vomiting Genitourinary: No dysuria, hematuria, discharge, frequency, urgency, nocturia, incontinence, and urinary retention. Endocrine: No heat or cold intolerance, polydipsia, polyuria, and polyphagia. Neurological: No dizziness, extremity weakness and numbness, tremors, gait disturbance, seizures, and memory impairment. Psychiatric: Denies depression, anxiety,or insomnia. Musculoskeletal: Denies neck pain, stiffness and swelling, back pain, muscle weakness, joint pain, stiffness, swelling, or limited range of motion. Skin: No rashes, itching, skin lesion, changes in hair, nail, skin texture and breast. Hematologic/Lymphatic: Denies easy bruising, bleeding tendencies, or lymph node enlargement. Objective vital signs Vital Sign Date Time Temp Pulse Resp B/P (MAP) Pulse Ox O2 Delivery O2 Flow Rate FiO2 02/09/25 14:08 135/77 02/09/25 13:00 97.6 79 16 97 97.6 02/09/25 08:00 Room Air* 0 21 Total Intake and Output 11/02/08/25 02/09/25 15:00 23:00 07:00 Intake Total 500 ml 300 ml Balance 500 ml 300 ml medications Current Medications Medications Dose Ordered Sig/Misty Route Start Time Stop Time Status Last Admin Dose Admin Nitroglycerin 0.4 mg Q5MINP PRN SL 02/08/25 16:00 Morphine Sulfate 2 mg Q30M PRN IV 02/08/25 16:00 Nifedipine 90 mg DAILY PO 02/09/25 10:00 02/09/25 09:55 90 MG Hydralazine HCl 50 mg Q8HR PO 02/08/25 22:00 02/09/25 14:08 50 MG Carvedilol 25 mg Q12HR PO 02/08/25 22:00 02/09/25 09:54 25 MG Quetiapine Fumarate 50 mg HS PO 02/08/25 22:00 02/08/25 22:47 50 MG Ondansetron HCl 4 mg Q6HPRN PRN IV 02/08/25 16:00 Pantoprazole Sodium 40 mg DAILY@0600 PO 02/09/25 06:00 02/09/25 05:11 40 MG Levetiracetam 500 mg BID PO 02/08/25 22:00 02/09/25 09:54 500 MG Heparin Sodium (Porcine) 5,000 units Q12HR SC 02/08/25 22:00 02/08/25 22:49 5,000 UNITS Ceftriaxone Sodium 50 ml @ 100 mls/hr DAILY@09 IV 02/10/25 09:00 Future Hold Metronidazole 100 ml @ 100 mls/hr Q8HR IV 02/09/25 14:00 Epoetin Arik-epbx 4,000 unit MWF@2100 [place] 02/10/25 21:00 Examination General Appearance: Alert, Oriented X3, Cooperative, No acute distress HEENT: Atraumatic, PERRLA, EOMI, Mucous membrane moist/pink Respiratory: Clear to auscultation, Normal air movement Cardiovascular: Regular rate, Normal S1, Normal S2, No murmurs, no chest wall tenderness Abdominal: Right upper quadrant tenderness Extremities: No clubbing, No cyanosis, No edema, Normal pulses, No tenderness/swelling Skin: No rashes, No breakdown, No significant lesion Neuro: Normal gait, Normal speech, Strength at 5/5 X4 ext, Normal tone, Sensation intact, Cranial nerves 3-12 NL, Reflexes 2+ Psych/Mental Status: Mental status NL, Mood NL laboratory and microbiology Laboratory Tests 02/09/25 07:42 Test 02/09/25 07:42 Range/Units Serum Glucose 155 H 74-106 mg/dL Problem List/Assessment/Plan Problem List/Assessment/Plan Assessment/Plan Acute cholecystitis Acute intractable abdominal pain due to above Possible acute gastroenteritis - CT abdomen pelvis reviewed - gallbladder ultrasound pending - clear liquid diet - surgical consult Hypertensive heart disease Hypertensive emergency H/o Dyslipidemia Paroxysmal atrial fibrillation - continued on carvedilol 25 b.i.d., hydralazine 50 t.i.d., nifedipine 90 daily - held anticoagulation in case the patient needs surgery End-stage renal disease on dialysis MWF Normocytic anemia likely due to above Hyperkalemia - nephrology consulted - hyperkalemia protocol given - monitor electrolytes Insulin-dependent Type 2 diabetes mellitus with a hyperglycemia - insulin Lantus 10 units at night ( at home takes 20) - mild insulin sliding scale History of seizure disorder History of schizophrenia/bipolar - continued on Keppra 500 b.i.d., quetiapine 50 mg HS Hypocalcemia - follow calcium levels PUD prophylaxis: Protonix DVT prophylaxis: Heparin Goals of care Full code Case discussed with Dr. Means Plan discussed with: Patient My Orders My Orders Orders - JUANI LIMA Procedure Category Date Status Time Comprehensive LAB 02/10/25 Verified Metabolic Panel 04:00 Date of Service: Feb 09, 2025 Billing Provider: ELDER BABCOCK MD Common Visit Codes: [id number] INP/OBS CARE(HIGH) JUANI LIMA RESIDENT Feb 09, 2025 17:12
[2025-02-09] MEDS: MORPHINE SULFATE INJ 2 MG/ml SYRG IV ONE (22:30)
[2025-02-10] VITALS (7 sets, daily range): BP systolic 109–155; BP diastolic 58–90; PULSE 73–90; RESP 12–20; TEMP 97.6–98.2; O2SAT 94–98
[2025-02-10 09:23] LABS: Hematocrit 29.8 % (41.0-53.0); Hemoglobin 10.2 g/dL (13.5-17.5); Mean Corpuscular Hemoglobin 30.3 pg (28.0-32.0); Mean Corpuscular Volume 88.0 fL (80.0-100.0); Nucleated Red Blood Cells % 0.1 %
[2025-02-10 09:42] LABS: Alanine Aminotransferase 11 U/L (7-40); Albumin 3.4 g/dL (3.2-4.8); Alkaline Phosphatase 80 U/L (46-116); Anion Gap 14 (5-15); BUN/Creatinine Ratio 5.9 (10.0-20.0); Carbon Dioxide 22 mmol/L (20-31); Glucose 81 mg/dL (74-106); Potassium 4.8 mmol/L (3.5-5.1); Sodium 144 mmol/L (136-145); Total Protein 5.7 g/dL (5.7-8.2)
[2025-02-10 09:44] LABS: Bilirubin, Total 0.2 mg/dL (0.2-1.0); Blood Urea Nitrogen 53 mg/dL (9-23); Calcium 8.7 mg/dL (8.7-10.4); Chloride 108 mmol/L (98-107)
[2025-02-10 10:49] LABS: Hepatitis B Surface Antigen Negative (Negative)
[2025-02-10 11:15] LABS: Hepatitis C Antibody Negative (Negative)
[2025-02-10] MEDS ORDERED: LIDOCAINE 1%-Mpf/Epinephrine 1:200,000 30ml VIAL ONE (11:30)
[2025-02-10] MEDS ORDERED: BUPIVACAINE HCL 0.25% P/F 10 ML VIAL ONE (11:30)
[2025-02-10] MEDS ORDERED: MIDAZOLAM HCL 2MG/2ML 2ml VIAL (1mg/ml) ONE (12:10)
[2025-02-10] MEDS ORDERED: fentaNYL CITRATE 100 MCG/2 ML VL ONE (12:10)
--- NOTE | 2025-02-10 12:16 | DVHINCON2 ---
Date of service: Feb 10, 2025 Family History: Diabetes mellitus G8 MOTHER, FH: CHF (congestive heart failure) G8 FATHER, Allergies: Coded Allergies: Aspirin (Unverified Allergy, Unknown, 01/27/25) Azithromycin (Unverified Allergy, Unknown, 01/27/25) Erythromycin (Verified Allergy, Unknown, 04/17/24) Penicillins (Verified Allergy, Unknown, 04/17/24) Home Meds Active Scripts Losartan Potassium (Losartan Potassium) 50 Mg Tab, 100 MG PO DAILY for 30 Days, #60 TAB Prov:GELY SCHROEDER MD 12/31/24 Nifedipine (Nifedipine Er) 30 Mg Tab, 90 MG PO QPM for 30 Days, #90 TAB Prov:GELY SCHROEDER MD 12/31/24 Carvedilol (Carvedilol) 25 Mg Tab, 1 TAB PO BID, #60 TAB 5 Refills Prov:GELY SCHROEDER MD 12/31/24 Hydralazine Hcl (Hydralazine Hcl) 50 Mg Tab, 1 TAB PO TID, #90 TAB Prov:RICKY MARTELL RESIDENT 12/22/24 Dorzolamide HCl-Timolol Maleat (Cosopt 2-0.5 %) 1 Keerthi Keerthi, 1 KEERTHI OP BID for 30 Days, #10 ML 1 Refill Prov:GULSHAN JIMENEZ RESIDENT 11/20/24 Hydrocodone-Acetaminophen (Hydrocodone Bitartrate/AC 5-325 mg) 1 Tab Tab, 1-2 TAB PO Q6HP PRN, #30 TAB Prov:QASIM BEJARANO MD 10/28/24 Atorvastatin Calcium (Lipitor) 40 Mg Tab, 40 MG PO DAILY for 40 Days, #40 TAB Prov:BERTRAM LARKIN RESIDENT 08/23/24 Bumetanide (Bumetanide) 1 Mg Tab, 1 TAB PO DAILY for 30 Days, #30 TAB Prov:BERTRAM LARKIN RESIDENT 08/23/24 Levetiracetam (Levetiracetam) 1,000 Mg Tab, 1 TAB PO BID for 30 Days, #60 TAB Prov:BERTRAM LARKIN 08/23/24 Reported Medications Quetiapine Fumerate (QUETIAPINE FUMARATE) 50 Mg Tab, 1 TAB PO 06/07/24 Insulin Lispro (Insulin Lispro Thai Kwi) 100 Unit/Ml Inj 3/18/25 Olopatadine HCl (Olopatadine Hydrochloride) 0.1 % Melchor, 1 DROP LEFTEYE BID 06/07/24 Current Medications Current Medications Medications (Trade) Dose Ordered Sig/Misty Route PRN Reason Start Time Stop Time Status Last Admin Ceftriaxone Sodium 50 ml @ 100 mls/hr DAILY@09 IV 02/10/25 09:00 Hold Metronidazole 100 ml @ 100 mls/hr Q8HR IV 02/09/25 14:00 02/10/25 05:27 Epoetin Arik-epbx (Retacrit) 4,000 unit MWF@2100 [place] 02/10/25 21:00 Vital Signs Vital Signs Date Time Temp Pulse Resp B/P (MAP) Pulse Ox O2 Delivery O2 Flow Rate FiO2 02/10/25 10:31 88 155/87 02/10/25 09:00 98.1 16 98 98.1 02/09/25 20:00 Room Air* 0 21 Labs/Diagnostic Data Labs Test 02/10/25 08:35 02/09/25 07:42 02/08/25 15:04 02/08/25 11:07 Range/Units White Blood Count 5.9 4.4-10.8 10^3/uL Red Blood Count 3.38 L 4.5-5.90 10^6/uL Hemoglobin 10.2 L 13.5-17.5 g/dL Hematocrit 29.8 #L 41.0-53.0 % Mean Corpuscular Volume 88.0 80.0-100.0 fL Mean Corpuscular Hemoglobin 30.3 28.0-32.0 pg Mean Corpuscular Hemoglobin Concent 34.4 32.0-36.0 g/dL Red Cell Distribution Width 13.8 11.8-14.3 % Platelet Count 235 140-450 10^3/uL Mean Platelet Volume 7.3 6.9-10.8 fL Neutrophils (%) (Auto) 64.8 37.0-80.0 % Lymphocytes (%) (Auto) 20.5 10.0-50.0 % Monocytes (%) (Auto) 7.9 0.0-12.0 % Eosinophils (%) (Auto) 5.6 0.0-7.0 % Basophils (%) (Auto) 1.2 0.0-2.0 % Neutrophils # (Auto) 3.8 1.6-8.6 10 ^3/uL Lymphocytes # (Auto) 1.2 0.4-5.4 10 ^3/uL Monocytes # (Auto) 0.5 0-1.3 10 ^3/uL Eosinophils # (Auto) 0.3 0-0.8 10 ^3/uL Basophils # (Auto) 0.1 0-0.2 10 ^3/uL Nucleated Red Blood Cells 0.1 % Sodium Level 144 136-145 mmol/L Potassium Level 4.8 3.5-5.1 mmol/L Chloride Level 108 H 98-107 mmol/L Carbon Dioxide Level 22 20-31 mmol/L Anion Gap 14 5-15 Blood Urea Nitrogen 53 #H 9-23 mg/dL Creatinine 8.93 H 0.700-1.30 mg/dL Glomerular Filtration Rate Calc 6 >90 mL/min BUN/Creatinine Ratio 5.9 L 10.0-20.0 Serum Glucose 81 74-106 mg/dL Calcium Level 8.7 8.7-10.4 mg/dL Total Bilirubin 0.2 0.2-1.0 mg/dL Aspartate Amino Transferase (AST) 12 L 13-40 U/L Alanine Aminotransferase (ALT) 11 7-40 U/L Alkaline Phosphatase 80 46-116 U/L Total Protein 5.7 5.7-8.2 g/dL Albumin 3.4 3.2-4.8 g/dL Phosphorus Level 8.3 H 2.4-5.1 mg/dL Iron Level 90 65-175 ug/dL Total Iron Binding Capacity 226 L 250-425 ug/dL Percent Iron Saturation 39.8 20-55 % Ferritin 351.9 H 22-322 ng/mL Parathyroid Hormone (Intact) 385.2 H 18.4-80.1 pg/mL Hepatitis A IgM Antibody Negative Hepatitis B Surface Antigen Negative Negative Hepatitis B Core IgM Antibody Negative Negative Hepatitis C Antibody Negative Negative Troponin I High Sensitivity 11 </=54 ng/L Prothrombin Time 10.3 9.3-11.8 sec Prothrombin Time INR 0.97 0.9-1.15 Activated Partial Thromboplast Time 27.1 24.5-34.5 SEC Magnesium Level 1.9 1.6-2.6 mg/dL Lipase 36 12-53 U/L Test 02/08/25 10:22 Range/Units Urine Color Light-yellow Yellow Urine Clarity Clear Clear Urine pH 7.5 5.0-9.0 Urine Specific [place] 1.018 1.001-1.035 Urine Protein 3+ H Negative Urine Ketones Negative Negative Urine Blood 1+ H Negative /uL Urine Nitrite Negative Negative Urine Bilirubin Negative Negative Urine Urobilinogen Normal Negative mg/dL Urine Leukocyte Esterase Negative Negative /uL Urine RBC 2 0 - 3 /hpf Urine Microscopic WBC 7 H 0-3 /HPF Urine Squamous Epithelial Cells None seen <5 /hpf Urine Bacteria None seen None Seen /hpf Urine Hyaline Casts Mod 0 - 2 /lpf Urine Yeast (Budding) Occasional None Seen /hpf Urine Glucose 3+ H Normal mg/dL Assessment 54 YEAR OLD DIABETIC PATIENT WITH RENAL FAILURE(DIALYSIS) AND BLINDNESS CAME TO THE WITH SEVERE ABDOMINAL PAIN,HYPERGLYCEMIA AND EVIDENCE OF SEPSIS WITH TH ICKENED GALLBLADDER WALL AND EVIDENCE OF CHOLECYSTITIS. WILL PROCEED WITH CHOLECYSTECTOMY TO DECREASE RISKS OF SEPTIC COMPLICATIONS. PATIENT IS AT HIGH RISK FOR CARDIAC AND PULMONARY COMPLICATIONS BUT WILL PROCEED URGENTLY DUE TO PERSISTENT PAIN. RISKS AND COMPLICATIONS OF UPCOMING LAPAROSCOPIC VS OPEN CHOLECYSTECTOMY EXPLAINED IN DETAIL Plan discussed with: Patient, Other CHRISTIANO BURRELL MD Feb 10, 2025 12:15
[2025-02-10] MEDS ORDERED: ONDANSETRON HCL 4 MG/2 ML VIAL IV PRN (12:30)
[2025-02-10] MEDS ORDERED: MIDAZOLAM HCL 2MG/2ML 2ml VIAL (1mg/ml) IV PRN (12:30)
[2025-02-10] MEDS ORDERED: MORPHINE SULFATE 4 MG/ML SYR/VIAL IV PRN (12:30)
[2025-02-10] MEDS ORDERED: hydrALAZINE HCL 20 MG/ML VL IV PRN (12:30)
[2025-02-10] MEDS ORDERED: ONDANSETRON HCL 4 MG/2 ML VIAL ONE (12:41)
[2025-02-10] MEDS ORDERED: ETOMIDATE (2MG/ML) 20ML VIAL IV ONE (12:41)
[2025-02-10] MEDS ORDERED: SUGAMMADEX 200mg/2ml Vial (100MG/ML) IV ONE (12:52)
--- NOTE | 2025-02-10 13:08 | DVHPN2 ---
Progress Note Date Seen: Feb 10, 2025 Medical Necessity Reason Pt with a Central, PICC or Fol: No Objective vital signs Vital Sign Date Time Temp Pulse Resp B/P (MAP) Pulse Ox O2 Delivery O2 Flow Rate FiO2 02/10/25 10:31 88 155/87 02/10/25 09:00 98.1 16 98 98.1 02/09/25 20:00 Room Air* 0 21 Total Intake and Output 02/09/25 02/09/25 02/10/25 15:00 23:00 07:00 Intake Total 150 ml 0 ml 0 ml Output Total 900 ml Balance 150 ml 0 ml -900 ml medications Current Medications Medications Dose Ordered Sig/Misty Route Start Time Stop Time Status Last Admin Dose Admin Nitroglycerin 0.4 mg Q5MINP PRN SL 02/08/25 16:00 Morphine Sulfate 2 mg Q30M PRN IV 02/08/25 16:00 Nifedipine 90 mg DAILY PO 02/09/25 10:00 02/10/25 09:31 90 MG Hydralazine HCl 50 mg Q8HR PO 02/08/25 22:00 02/10/25 05:27 50 MG Carvedilol 25 mg Q12HR PO 02/08/25 22:00 02/10/25 09:31 25 MG Quetiapine Fumarate 50 mg HS PO 02/08/25 22:00 02/09/25 22:46 50 MG Ondansetron HCl 4 mg Q6HPRN PRN IV 02/08/25 16:00 Pantoprazole Sodium 40 mg DAILY@0600 PO 02/09/25 06:00 02/10/25 05:26 40 MG Levetiracetam 500 mg BID PO 02/08/25 22:00 02/10/25 09:31 500 MG Heparin Sodium (Porcine) 5,000 units Q12HR SC 02/08/25 22:00 02/08/25 22:49 5,000 UNITS Ceftriaxone Sodium 50 ml @ 100 mls/hr DAILY@09 IV 02/10/25 09:00 Hold Metronidazole 100 ml @ 100 mls/hr Q8HR IV 02/09/25 14:00 02/10/25 05:27 100 MLS/HR Epoetin Arik-epbx 4,000 unit MWF@2100 [place] 02/10/25 21:00 Hydralazine HCl 5 mg Q10M PRN IV 02/10/25 12:30 02/10/25 13:21 Midazolam HCl 1 mg Q10M PRN IV 02/10/25 12:30 02/10/25 13:11 Ephedrine Sulfate 10 mg Q10M PRN IV 02/10/25 12:30 02/10/25 13:11 Hydromorphone HCl 0.5 mg Q10M PRN IV 02/10/25 12:30 02/10/25 13:11 laboratory and microbiology Laboratory Tests 02/10/25 08:35 Test 02/10/25 08:35 Range/Units Serum Glucose 81 74-106 mg/dL Problem List/Assessment/Plan Problem List/Assessment/Plan 02/10/25 Plan discussed with: Patient CHRISTIANO BURRELL MD Feb 10, 2025 13:08
[2025-02-10] MEDS ORDERED: HYDROmorphone HCL 2 MG/ML VL/or syr ONE (13:25)
[2025-02-10] MEDS: HYDROmorphone HCL 2 MG/ML VL/or syr IV PRN (13:27)
--- NOTE | 2025-02-10 13:44 | DVHOP ---
DATE OF SURGERY: 02/10/2025 PREOPERATIVE DIAGNOSES: * Cholelithiasis. * Biliary colic. * Chronic cholecystitis. POSTOPERATIVE DIAGNOSES: * Cholelithiasis. * Biliary colic. * Chronic cholecystitis. SURGEON: Rafiq Ayoub MD [employer] HELPER REPAIR: Jules Wilson NP ANESTHESIA: General endotracheal. ANESTHESIOLOGIST: Mr. Suarez. PROCEDURES: * Laparoscopy. * Laparoscopic cholecystectomy DESCRIPTION OF PROCEDURE: Under general endotracheal anesthesia with the patient's skin prepped and draped, supraumbilical incision was made and Veress needle inserted by the hanging drop technique to establish pneumoperitoneum to 15 mmHg pressure by insufflation with carbon dioxide. With the abdomen fully distended, the needle was removed and replaced with a 5 mm trocar port through which a 0-degree viewing laparoscope was inserted and under direct vision, 5 and 10 mm ports inserted through the right anterior axillary line at the level of the umbilicus and through the subxiphoid skin in the midline respectively. Instrumentation was introduced and laparoscopy was conducted. It revealed no obvious unexpected pathology on the serosal surfaces visualized. The gallbladder was grasped with a grasping forceps and placed on tension cephalad. The cystic duct and cystic artery were identified, circumferentially dissected, traced into the hepaticocystic triangle, and skeletonized. The cystic duct was exceedingly short and the common duct was seen being tented toward the cystic duct junction. The clips were applied over the skeletonized cystic duct and cystic artery far away from the common duct as feasible. The following division of the cystic duct and cystic artery, the gallbladder was resected from its liver bed by electrocautery and traction. The fully mobilized gallbladder was placed into a specimen extraction bag, which was withdrawn from the peritoneal cavity through the subxiphoid 10-mm incision, which appeared to be slightly enlarged due to the large-sized stone present in the gallbladder. The right upper quadrant was then thoroughly irrigated. Irrigant was aspirated. Hemostasis was meticulously accomplished and found to be complete. At the termination of the procedure, there was no evidence of bleeding from either the port sites or from the cholecystectomy site. Due to the partially intrahepatic nature of the gallbladder, a 10-mm Schuyler-Bahena drain was placed underneath the right lobe of the liver and exteriorized through the 5-mm port site on the right side of the patient's abdomen, secured with a 2-0 nylon suture. Following assurance of complete hemostasis, there had been no bleeding from the port sites or from the liver bed and following irrigation and aspiration of all the irrigant and instrumentation was withdrawn. Pneumoperitoneum was evacuated. The fascial defect closed using 0 Vicryl. The incision was approximated using Monocryl sutures, Dermabond, glue, and Steri-Strips. The patient remained stable throughout the procedure, left the operating room following an accurate needle and sponge counts. His sister, Chitra, was thoroughly informed at [phone]. MD ANDREA Conner/ROBERT TID: [id number] RECEIPT: [id number]
--- NOTE | 2025-02-10 16:49 | DVHPNRES ---
Progress Note Date Seen: Feb 10, 2025 Resident Creating Document: JUANI LIMA Medical Necessity Reason Pt with a Central, PICC or Fol: No Subjective Review of Systems Patient seen at bedside. Complains of pain. Posted for laparoscopic cholecystectomy today. This is a 54-year-old male with past medical history of diabetes mellitus, hypertension Thursday, congestive heart failure, dyslipidemia, seizures, schizophrenia presents with complaint of abdominal pains, vomiting, diarrhea Since 1 day. He rated the abdominal pain 10 on 10. He says that he felt like the ribs were breaking. Patient also complains of pain in legs CP. The pain is chronic due to diabetic neuropathy. PMHx:diabetes mellitus, hypertension, ESRD PSHx: Skull fracture surgery, left lower extremity surgery for fracture Family history: nonrelevant Social history: 10 pack year smoking history denies alcohol or drug use Home medication: patient does not remember Allergic history: aspirin, azithromycin, erythromycin, penicillin General: patient denies fever, fatigue, weaknes, sweating, any recent changes in appetite and weight HEENT: No headaches, visiual changes, hearing loss, tinnitus, nasal congestion and discharge, and sore throat. Cardiovascular: Denies chest pain, palpitations, dyspnea on exertion, orthopnea, or claudication. Respiratory: No cough, and wheezing. Gastrointestinal: complains of abdominal pain and vomiting Genitourinary: No dysuria, hematuria, discharge, frequency, urgency, nocturia, incontinence, and urinary retention. Endocrine: No heat or cold intolerance, polydipsia, polyuria, and polyphagia. Neurological: No dizziness, extremity weakness and numbness, tremors, gait disturbance, seizures, and memory impairment. Psychiatric: Denies depression, anxiety,or insomnia. Musculoskeletal: Denies neck pain, stiffness and swelling, back pain, muscle weakness, joint pain, stiffness, swelling, or limited range of motion. Skin: No rashes, itching, skin lesion, changes in hair, nail, skin texture and breast. Hematologic/Lymphatic: Denies easy bruising, bleeding tendencies, or lymph node enlargement. Objective vital signs Vital Sign Date Time Temp Pulse Resp B/P (MAP) Pulse Ox O2 Delivery O2 Flow Rate FiO2 02/10/25 14:49 139/82 02/10/25 14:15 68 12 98 02/10/25 13:25 Nasal Cannula 2.0 100 02/10/25 09:00 98.1 98.1 Total Intake and Output 02/09/25 02/09/25 02/10/25 15:00 23:00 07:00 Intake Total 150 ml 0 ml 0 ml Output Total 900 ml Balance 150 ml 0 ml -900 ml medications Current Medications Medications Dose Ordered Sig/Misty Route Start Time Stop Time Status Last Admin Dose Admin Nitroglycerin 0.4 mg Q5MINP PRN SL 02/08/25 16:00 Morphine Sulfate 2 mg Q30M PRN IV 02/08/25 16:00 Nifedipine 90 mg DAILY PO 02/09/25 10:00 02/10/25 09:31 90 MG Hydralazine HCl 50 mg Q8HR PO 02/08/25 22:00 02/10/25 14:49 50 MG Quetiapine Fumarate 50 mg HS PO 02/08/25 22:00 02/09/25 22:46 50 MG Ondansetron HCl 4 mg Q6HPRN PRN IV 02/08/25 16:00 Pantoprazole Sodium 40 mg DAILY@0600 PO 02/09/25 06:00 02/10/25 05:26 40 MG Levetiracetam 500 mg BID PO 02/08/25 22:00 02/10/25 09:31 500 MG Ceftriaxone Sodium 50 ml @ 100 mls/hr DAILY@09 IV 02/10/25 09:00 Hold Epoetin Arik-epbx 4,000 unit MWF@2100 [place] 02/10/25 21:00 Examination General Appearance: Alert, Oriented X3, Cooperative, No acute distress HEENT: Atraumatic, PERRLA, EOMI, Mucous membrane moist/pink Respiratory: Clear to auscultation, Normal air movement Cardiovascular: Regular rate, Normal S1, Normal S2, No murmurs, no chest wall tenderness Abdominal: Right upper quadrant tenderness Extremities: No clubbing, No cyanosis, No edema, Normal pulses, No tenderness/swelling Skin: No rashes, No breakdown, No significant lesion Neuro: Normal gait, Normal speech, Strength at 5/5 X4 ext, Normal tone, Sensation intact, Cranial nerves 3-12 NL, Reflexes 2+ Psych/Mental Status: Mental status NL, Mood N laboratory and microbiology Laboratory Tests 02/10/25 08:35 Test 02/10/25 08:35 Range/Units Serum Glucose 81 74-106 mg/dL Problem List/Assessment/Plan Problem List/Assessment/Plan Assessment/Plan Acute cholecystitis Acute intractable abdominal pain due to above Possible acute gastroenteritis - CT abdomen pelvis reviewed - gallbladder ultrasound pending - clear liquid diet - surgical consult Hypertensive heart disease Hypertensive emergency H/o Dyslipidemia Paroxysmal atrial fibrillation - continued on carvedilol 25 b.i.d., hydralazine 50 t.i.d., nifedipine 90 daily - held anticoagulation in case the patient needs surgery End-stage renal disease on dialysis MWF Normocytic anemia likely due to above Hyperkalemia - nephrology consulted - hyperkalemia protocol given - monitor electrolytes Insulin-dependent Type 2 diabetes mellitus with a hyperglycemia - insulin Lantus 10 units at night ( at home takes 20) - mild insulin sliding scale History of seizure disorder History of schizophrenia/bipolar - continued on Keppra 500 b.i.d., quetiapine 50 mg HS Hypocalcemia - follow calcium levels PUD prophylaxis: Protonix DVT prophylaxis: Heparin Goals of care Full code Case discussed with Dr. Means Plan discussed with: Patient Date of Service: Feb 10, 2025 Billing Provider: ELDER BABCOCK MD Common Visit Codes: [id number] INP/OBS CARE(HIGH) JUANI LIMA RESIDENT Feb 10, 2025 16:49
[2025-02-10] MEDS: MORPHINE SULFATE INJ 2 MG/ml SYRG IV PRN ×2 (17:12→23:08)
[2025-02-10] MEDS ORDERED: EPOETIN ALFA-EPBX 10,000 UNIT/1ML VIAL SC SCH (21:00)
[2025-02-10] MEDS ORDERED: EPOETIN ALFA-EPBX 4,000 UNIT/ML VIAL ONE (22:43)
[2025-02-10] MEDS ORDERED: MORPHINE SULFATE INJ 2 MG/ml SYRG ONE (23:04)
[2025-02-10] MEDS: EPOETIN ALFA-EPBX 4,000 UNIT/ML VIAL SC ONE (23:08)
[2025-02-11 05:00] VITALS: BP 128/73; PULSE 83; RESP 20; TEMP 98.4; O2SAT 95
[2025-02-11] MEDS ORDERED: MORPHINE SULFATE 4 MG/ML SYR/VIAL ONE ×3 (06:08→22:12)
--- NOTE | 2025-02-11 06:42 | DVHPN2 ---
Progress Note Date Seen: Feb 11, 2025 Medical Necessity Reason Pt with a Central, PICC or Fol: No Objective vital signs Vital Sign Date Time Temp Pulse Resp B/P (MAP) Pulse Ox O2 Delivery O2 Flow Rate FiO2 02/11/25 06:11 83 20 128/73 02/11/25 05:00 98.4 95 98.4 02/10/25 20:00 Room Air* 0 21 Total Intake and Output 02/10/25 02/10/25 02/11/25 14:59 22:59 06:59 Intake Total 100 ml 300 ml 400 ml Output Total 120 ml 965 ml 400 ml Balance -20 ml -665 ml 0 ml medications Current Medications Medications Dose Ordered Sig/Misty Route Start Time Stop Time Status Last Admin Dose Admin Nitroglycerin 0.4 mg Q5MINP PRN SL 02/08/25 16:00 Morphine Sulfate 2 mg Q30M PRN IV 02/08/25 16:00 02/10/25 17:12 2 MG Nifedipine 90 mg DAILY PO 02/09/25 10:00 02/10/25 09:31 90 MG Hydralazine HCl 50 mg Q8HR PO 02/08/25 22:00 02/11/25 06:03 50 MG Quetiapine Fumarate 50 mg HS PO 02/08/25 22:00 02/10/25 21:23 50 MG Ondansetron HCl 4 mg Q6HPRN PRN IV 02/08/25 16:00 Pantoprazole Sodium 40 mg DAILY@0600 PO 02/09/25 06:00 02/11/25 06:03 40 MG Levetiracetam 500 mg BID PO 02/08/25 22:00 02/10/25 21:23 500 MG Ceftriaxone Sodium 50 ml @ 100 mls/hr DAILY@09 IV 02/10/25 09:00 Hold Epoetin Arik-epbx 4,000 unit MWF@2100 SC 02/13/25 21:00 Morphine Sulfate 2 mg Q6HPRN PRN IV 02/10/25 23:00 02/11/25 06:11 2 MG laboratory and microbiology Laboratory Tests 02/10/25 08:35 Test 02/10/25 08:35 Range/Units Serum Glucose 81 74-106 mg/dL Problem List/Assessment/Plan Problem List/Assessment/Plan 11/21/25 feels better but still has pain, wants to eat, passing flatus, no nausea, abdomen non distended, appropriately tender, dressings dry, stefano drainage sero sanguineous Plan discussed with: Patient CHRISTIANO BURRELL MD Feb 11, 2025 06:42
[2025-02-11 07:10] LABS: Hematocrit 26.7 % (41.0-53.0); Hemoglobin 9.2 g/dL (13.5-17.5); Mean Corpuscular Hemoglobin 30.7 pg (28.0-32.0); Mean Corpuscular Volume 89.3 fL (80.0-100.0); Nucleated Red Blood Cells % 0.0 %
[2025-02-11 07:35] LABS: Alanine Aminotransferase 27 U/L (7-40); Alkaline Phosphatase 74 U/L (46-116); Anion Gap 13 (5-15); BUN/Creatinine Ratio 5.6 (10.0-20.0); Carbon Dioxide 22 mmol/L (20-31); Glucose 78 mg/dL (74-106); Potassium 5.0 mmol/L (3.5-5.1); Sodium 144 mmol/L (136-145)
[2025-02-11 07:45] LABS: Albumin 3.1 g/dL (3.2-4.8); Bilirubin, Total 0.2 mg/dL (0.2-1.0); Blood Urea Nitrogen 54 mg/dL (9-23); Calcium 8.2 mg/dL (8.7-10.4); Chloride 109 mmol/L (98-107); Total Protein 5.2 g/dL (5.7-8.2)
[2025-02-11 08:00] VITALS: RESP 16
[2025-02-11 09:00] VITALS: BP 148/98; PULSE 89; RESP 16; TEMP 99; O2SAT 94
[2025-02-11] MEDS ORDERED: HYDROcodone-ACET 5/325MG TAB PO PRN (09:15)
[2025-02-11] MEDS ORDERED: KETOROLAC TROMETH 30 MG/ML 1ML VIAL IV PRN (09:15)
[2025-02-11] MEDS ORDERED: ACETAMINOPHEN 325 MG TAB PO PRN (09:15)
[2025-02-11] MEDS ORDERED: HYDROcodone-ACET 10/325MG TAB ONE ×3 (10:42→19:35)
[2025-02-11] MEDS: HYDROcodone-ACET 10/325MG TAB PO PRN (10:47)
[2025-02-11 12:36] VITALS: BP 119/87; PULSE 87; RESP 17; TEMP 98.1; O2SAT 96
[2025-02-11] MEDS: MORPHINE SULFATE 4 MG/ML SYR/VIAL IV PRN (12:39)
--- NOTE | 2025-02-11 15:29 | DVHPNRES ---
Progress Note Date Seen: Feb 11, 2025 Resident Creating Document: JUANI LIMA Medical Necessity Reason Pt with a Central, PICC or Fol: No Subjective Review of Systems Patient seen at bedside. Status post laparoscopic cholecystectomy. Diet advanced from clear liquid to full liquid, advance as tolerated. Patient complains of pain. On pain management. This is a 54-year-old male with past medical history of diabetes mellitus, hypertension Thursday, congestive heart failure, dyslipidemia, seizures, schizophrenia presents with complaint of abdominal pains, vomiting, diarrhea Since 1 day. He rated the abdominal pain 10 on 10. He says that he felt like the ribs were breaking. Patient also complains of pain in legs CP. The pain is chronic due to diabetic neuropathy. PMHx:diabetes mellitus, hypertension, ESRD PSHx: Skull fracture surgery, left lower extremity surgery for fracture Family history: nonrelevant Social history: 10 pack year smoking history denies alcohol or drug use Home medication: patient does not remember Allergic history: aspirin, azithromycin, erythromycin, penicillin General: patient denies fever, fatigue, weaknes, sweating, any recent changes in appetite and weight HEENT: No headaches, visiual changes, hearing loss, tinnitus, nasal congestion and discharge, and sore throat. Cardiovascular: Denies chest pain, palpitations, dyspnea on exertion, orthopnea, or claudication. Respiratory: No cough, and wheezing. Gastrointestinal: complains of abdominal pain and vomiting Genitourinary: No dysuria, hematuria, discharge, frequency, urgency, nocturia, incontinence, and urinary retention. Endocrine: No heat or cold intolerance, polydipsia, polyuria, and polyphagia. Neurological: No dizziness, extremity weakness and numbness, tremors, gait disturbance, seizures, and memory impairment. Psychiatric: Denies depression, anxiety,or insomnia. Musculoskeletal: Denies neck pain, stiffness and swelling, back pain, muscle weakness, joint pain, stiffness, swelling, or limited range of motion. Skin: No rashes, itching, skin lesion, changes in hair, nail, skin texture and breast. Hematologic/Lymphatic: Denies easy bruising, bleeding tendencies, or lymph node enlargement. Objective vital signs Vital Sign Date Time Temp Pulse Resp B/P (MAP) Pulse Ox O2 Delivery O2 Flow Rate FiO2 02/11/25 14:51 133/66 02/11/25 13:09 89 16 02/11/25 12:36 98.1 96 98.1 02/10/25 20:00 Room Air* 0 21 Total Intake and Output 02/10/25 02/10/25 02/11/25 15:00 23:00 07:00 Intake Total 100 ml 300 ml 400 ml Output Total 120 ml 965 ml 400 ml Balance -20 ml -665 ml 0 ml medications Current Medications Medications Dose Ordered Sig/Misty Route Start Time Stop Time Status Last Admin Dose Admin Nitroglycerin 0.4 mg Q5MINP PRN SL 02/08/25 16:00 Morphine Sulfate 2 mg Q30M PRN IV 02/08/25 16:00 02/10/25 17:12 2 MG Nifedipine 90 mg DAILY PO 02/09/25 10:00 02/11/25 10:46 90 MG Hydralazine HCl 50 mg Q8HR PO 02/08/25 22:00 02/11/25 14:51 50 MG Quetiapine Fumarate 50 mg HS PO 02/08/25 22:00 02/10/25 21:23 50 MG Ondansetron HCl 4 mg Q6HPRN PRN IV 02/08/25 16:00 Pantoprazole Sodium 40 mg DAILY@0600 PO 02/09/25 06:00 02/11/25 06:03 40 MG Levetiracetam 500 mg BID PO 02/08/25 22:00 02/11/25 10:43 500 MG Ceftriaxone Sodium 50 ml @ 100 mls/hr DAILY@09 IV 02/10/25 09:00 Hold Epoetin Arik-epbx 4,000 unit MWF@2100 [place] 02/13/25 21:00 Acetaminophen/ Hydrocodone Bitart 1 tab Q4HPRN PRN PO 02/11/25 09:15 Acetaminophen/ Hydrocodone Bitart 1 tab Q4HP PRN PO 02/11/25 09:15 02/11/25 14:52 1 TAB Acetaminophen 650 mg Q6HP PRN PO 02/11/25 09:15 Ketorolac Tromethamine 15 mg Q8HPRN PRN IV 02/11/25 09:15 02/16/25 09:14 UNV Morphine Sulfate 4 mg Q6HPRN PRN IV 02/11/25 09:15 02/11/25 12:39 4 MG Examination General Appearance: Alert, Oriented X3, Cooperative, No acute distress HEENT: Atraumatic, PERRLA, EOMI, Mucous membrane moist/pink Respiratory: Clear to auscultation, Normal air movement Cardiovascular: Regular rate, Normal S1, Normal S2, No murmurs, no chest wall tenderness Abdominal: Right upper quadrant tenderness Extremities: No clubbing, No cyanosis, No edema, Normal pulses, No tenderness/swelling Skin: No rashes, No breakdown, No significant lesion Neuro: Normal gait, Normal speech, Strength at 5/5 X4 ext, Normal tone, Sensation intact, Cranial nerves 3-12 NL, Reflexes 2+ Psych/Mental Status: Mental status NL, Mood N laboratory and microbiology Laboratory Tests 02/11/25 06:23 Test 02/11/25 06:23 Range/Units Serum Glucose 78 74-106 mg/dL Microbiology Date/Time Source Procedure Growth Status 02/09/25 06:20 Nose MRSA Screen - Final Complete Problem List/Assessment/Plan Problem List/Assessment/Plan Assessment/Plan Status post laparoscopic cholecystectomy Acute cholecystitis Acute intractable abdominal pain due to above Possible acute gastroenteritis - CT abdomen pelvis reviewed - gallbladder ultrasound pending - clear liquid diet - surgical consult Hypertensive heart disease Hypertensive emergency H/o Dyslipidemia Paroxysmal atrial fibrillation - continued on carvedilol 25 b.i.d., hydralazine 50 t.i.d., nifedipine 90 daily - held anticoagulation in case the patient needs surgery End-stage renal disease on dialysis MWF Normocytic anemia likely due to above Hyperkalemia - nephrology consulted - hyperkalemia protocol given - monitor electrolytes Insulin-dependent Type 2 diabetes mellitus with a hyperglycemia - insulin Lantus 10 units at night ( at home takes 20) - mild insulin sliding scale History of seizure disorder History of schizophrenia/bipolar - continued on Keppra 500 b.i.d., quetiapine 50 mg HS Hypocalcemia - follow calcium levels PUD prophylaxis: Protonix DVT prophylaxis: Heparin Goals of care Full code Case discussed with Dr. Means Plan discussed with: Patient My Orders My Orders Orders - JUANI LIMA RESIDENT Procedure Category Date Status Time Full Liq Diet DIET 02/11/25 Transmitted Lunch Complete Blood Count LAB 02/12/25 Verified 04:00 Comprehensive LAB 02/12/25 Verified Metabolic Panel 04:00 Date of Service: Feb 11, 2025 Billing Provider: ELDER BABCOCK MD Common Visit Codes: [id number] INP/OBS CARE(HIGH) JUANI LIMA RESIDENT Feb 11, 2025 15:29
--- NOTE | 2025-02-11 16:33 | DVHPN2 ---
Progress Note Date Seen: Feb 11, 2025 Medical Necessity Reason Pt with a Central, PICC or Fol: No Subjective Patient reports: No new complaints, Feels better Objective vital signs Vital Sign Date Time Temp Pulse Resp B/P (MAP) Pulse Ox O2 Delivery O2 Flow Rate FiO2 02/11/25 14:51 133/66 02/11/25 13:09 89 16 02/11/25 12:36 98.1 96 98.1 02/10/25 20:00 Room Air* 0 21 Total Intake and Output 02/10/25 02/10/25 02/11/25 15:00 23:00 07:00 Intake Total 100 ml 300 ml 400 ml Output Total 120 ml 965 ml 400 ml Balance -20 ml -665 ml 0 ml medications Current Medications Medications Dose Ordered Sig/Misty Route Start Time Stop Time Status Last Admin Dose Admin Nitroglycerin 0.4 mg Q5MINP PRN SL 02/08/25 16:00 Morphine Sulfate 2 mg Q30M PRN IV 02/08/25 16:00 02/10/25 17:12 2 MG Nifedipine 90 mg DAILY PO 02/09/25 10:00 02/11/25 10:46 90 MG Hydralazine HCl 50 mg Q8HR PO 02/08/25 22:00 02/11/25 14:51 50 MG Quetiapine Fumarate 50 mg HS PO 02/08/25 22:00 02/10/25 21:23 50 MG Ondansetron HCl 4 mg Q6HPRN PRN IV 02/08/25 16:00 Pantoprazole Sodium 40 mg DAILY@0600 PO 02/09/25 06:00 02/11/25 06:03 40 MG Levetiracetam 500 mg BID PO 02/08/25 22:00 02/11/25 10:43 500 MG Ceftriaxone Sodium 50 ml @ 100 mls/hr DAILY@09 IV 02/10/25 09:00 Hold Epoetin Arik-epbx 4,000 unit MWF@2100 [place] 02/13/25 21:00 Acetaminophen/ Hydrocodone Bitart 1 tab Q4HPRN PRN PO 02/11/25 09:15 Acetaminophen/ Hydrocodone Bitart 1 tab Q4HP PRN PO 02/11/25 09:15 02/11/25 14:52 1 TAB Acetaminophen 650 mg Q6HP PRN PO 02/11/25 09:15 Ketorolac Tromethamine 15 mg Q8HPRN PRN IV 02/11/25 09:15 02/16/25 09:14 UNV Morphine Sulfate 4 mg Q6HPRN PRN IV 02/11/25 09:15 02/11/25 12:39 4 MG Examination Gen:Appears stated age. NAD Heart: RRR, normal S1 and S2 Lungs: Bilateral air entry, no rales Ext: No edema Neuro Alert and oriented x 4 laboratory and microbiology Laboratory Tests 02/11/25 06:23 Test 02/11/25 06:23 Range/Units Serum Glucose 78 74-106 mg/dL Microbiology Date/Time Source Procedure Growth Status 02/09/25 06:20 Nose MRSA Screen - Final Complete Labs and/or images reviewed: Labs reviewed by me Problem List/Assessment/Plan Problem List/Assessment/Plan IMP ESRD schizophrenia seizure acute cholecystitis hyperkalemia-resolved anemia CKD REC HD tentatively 02/12 Strict I&Os Blood pressure control Will continue to follow Plan discussed with: Patient SELAMNOLAN COLLIER Feb 11, 2025 16:33
[2025-02-11 16:57] VITALS: BP 131/81; PULSE 90; RESP 16; TEMP 98.7; O2SAT 95
[2025-02-11 21:00] VITALS: BP 144/77; PULSE 87; RESP 19; TEMP 98.7; O2SAT 94
[2025-02-12] VITALS (8 sets, daily range): BP systolic 132–163; BP diastolic 63–92; PULSE 78–87; RESP 18–20; TEMP 97.7–98.4; O2SAT 91–95
[2025-02-12] MEDS: HYDROcodone-ACET 10/325MG TAB ONE ×3 (01:28→15:08)
[2025-02-12] MEDS: MORPHINE SULFATE 4 MG/ML SYR/VIAL ONE ×2 (04:09→12:04)
[2025-02-12 07:14] LABS: Hematocrit 29.2 % (41.0-53.0); Hemoglobin 10.0 g/dL (13.5-17.5); Mean Corpuscular Hemoglobin 30.3 pg (28.0-32.0); Mean Corpuscular Volume 88.5 fL (80.0-100.0); Nucleated Red Blood Cells % 0.1 %
[2025-02-12 07:51] LABS: Alanine Aminotransferase 23 U/L (7-40); Alkaline Phosphatase 82 U/L (46-116); Anion Gap 15 (5-15); BUN/Creatinine Ratio 5.2 (10.0-20.0); Calcium 8.7 mg/dL (8.7-10.4); Carbon Dioxide 22 mmol/L (20-31); Chloride 107 mmol/L (98-107); Glucose 85 mg/dL (74-106); Sodium 144 mmol/L (136-145)
[2025-02-12 07:52] LABS: Albumin 3.3 g/dL (3.2-4.8)
[2025-02-12 07:57] LABS: Bilirubin, Total < 0.2 mg/dL (0.2-1.0); Blood Urea Nitrogen 53 mg/dL (9-23); Potassium 5.1 mmol/L (3.5-5.1); Total Protein 5.7 g/dL (5.7-8.2)
[2025-02-12] MEDS ORDERED: DEXTROSE (50%) 50ML SYRG IV PRN (09:15)
[2025-02-12] MEDS: ACCU-CHEK COMFORT CURVE STRIP VI SCH (11:39)
[2025-02-12] MEDS: MORPHINE SULFATE 4 MG/ML SYR/VIAL IV ONE (12:10)
[2025-02-12] MEDS ORDERED: ROCURONIUM 10MG/ML 10ML VIAL IV ONE (12:20)
[2025-02-12] MEDS ORDERED: SUCCINYLCHOLINE 20mg/ml 100mg/5ml SYRINGE IV ONE (12:20)
--- NOTE | 2025-02-12 13:54 | DVHPNRES ---
Progress Note Date Seen: Feb 12, 2025 Resident Creating Document: JUHI TRAN RESDIENT Medical Necessity Reason Pt with a Central, PICC or Fol: No Subjective Review of Systems This is a 54-year-old male with past medical history of diabetes mellitus, hypertension Thursday, congestive heart failure, dyslipidemia, seizures, schizophrenia presents with complaint of abdominal pains, vomiting, diarrhea Since 1 day. He rated the abdominal pain 10 on 10. He says that he felt like the ribs were breaking. Patient also complains of pain in legs CP. The pain is chronic due to diabetic neuropathy. 02/12, the patient is seen and examined at the bedside. Patient is feeling better. But still complaining of abdominal pain, and postprandial nausea. Objective vital signs Vital Sign Date Time Temp Pulse Resp B/P (MAP) Pulse Ox O2 Delivery O2 Flow Rate FiO2 02/12/25 13:08 97.7 84 20 156/84 (108) 94 97.7 02/12/25 08:00 Room Air* 0 21 Total Intake and Output 02/11/25 02/11/25 02/12/25 15:00 23:00 07:00 Intake Total 900 ml 700 ml Output Total 850 ml 500 ml Balance 50 ml 200 ml medications Current Medications Medications Dose Ordered Sig/Misty Route Start Time Stop Time Status Last Admin Dose Admin Nitroglycerin 0.4 mg Q5MINP PRN SL 02/08/25 16:00 Nifedipine 90 mg DAILY PO 02/09/25 10:00 02/12/25 08:54 90 MG Hydralazine HCl 50 mg Q8HR PO 02/08/25 22:00 02/12/25 05:44 50 MG Quetiapine Fumarate 50 mg HS PO 02/08/25 22:00 02/11/25 22:13 50 MG Ondansetron HCl 4 mg Q6HPRN PRN IV 02/08/25 16:00 Pantoprazole Sodium 40 mg DAILY@0600 PO 02/09/25 06:00 02/12/25 05:44 40 MG Levetiracetam 500 mg BID PO 02/08/25 22:00 02/12/25 08:54 500 MG Ceftriaxone Sodium 50 ml @ 100 mls/hr DAILY@09 IV 02/10/25 09:00 Hold Epoetin Arik-epbx 4,000 unit MWF@2100 [place] 02/13/25 21:00 Acetaminophen/ Hydrocodone Bitart 1 tab Q4HPRN PRN PO 02/11/25 09:15 Acetaminophen/ Hydrocodone Bitart 1 tab Q4HP PRN PO 02/11/25 09:15 02/12/25 08:44 1 TAB Diagnostic Test (Pha) 1 strip ACHS 02/12/25 11:30 02/12/25 11:39 1 STRIP Dextrose 50 ml UD PRN IV 02/12/25 09:15 Acetaminophen 650 mg Q6HR PO 02/12/25 18:00 Hydromorphone HCl 1 mg Q4HPRN PRN IV 02/12/25 12:15 Examination General Appearance: Alert, Oriented X3, Cooperative, No acute distress HEENT: Atraumatic, PERRLA, EOMI, Mucous membrane moist/pink Respiratory: Clear to auscultation, Normal air movement Cardiovascular: Regular rate, Normal S1, Normal S2, No murmurs, no chest wall tenderness Abdominal: Right upper quadrant tenderness Extremities: No clubbing, No cyanosis, No edema, Normal pulses, No tenderness/swelling Skin: No rashes, No breakdown, No significant lesion Neuro: Normal gait, Normal speech, Strength at 5/5 X4 ext, Normal tone, Sensation intact, Cranial nerves 3-12 NL, Reflexes 2+ Psych/Mental Status: Mental status NL, Mood N laboratory and microbiology Laboratory Tests 02/12/25 06:15 Test 02/12/25 06:15 Range/Units Serum Glucose 85 74-106 mg/dL Microbiology Date/Time Source Procedure Growth Status 02/09/25 06:20 Nose MRSA Screen - Final Complete Labs and/or images reviewed: Labs reviewed by me, Image(s) reviewed by me Problem List/Assessment/Plan Problem List/Assessment/Plan Status post laparoscopic cholecystectomy Acute cholecystitis Acute intractable abdominal pain due to above Possible acute gastroenteritis - CT abdomen pelvis reviewed - gallbladder ultrasound pending - clear liquid diet - surgical consult Hypertensive heart disease Hypertensive emergency H/o Dyslipidemia Paroxysmal atrial fibrillation - continued on carvedilol 25 b.i.d., hydralazine 50 t.i.d., nifedipine 90 daily - held anticoagulation in case the patient needs surgery End-stage renal disease on dialysis MWF Normocytic anemia likely due to above Hyperkalemia - nephrology consulted - hyperkalemia protocol given - monitor electrolytes Insulin-dependent Type 2 diabetes mellitus with a hyperglycemia - insulin Lantus 10 units at night ( at home takes 20) - mild insulin sliding scale History of seizure disorder History of schizophrenia/bipolar - continued on Keppra 500 b.i.d., quetiapine 50 mg HS Hypocalcemia - follow calcium levels PUD prophylaxis: Protonix DVT prophylaxis: Heparin Goals of care Full code Case discussed with Dr. Means Plan discussed with: Patient My Orders My Orders Orders - JUHI TRAN Procedure Category Date Status Time Glucose Blood PHA 02/12/25 In Process (Accu-Chek Comfort 11:30 Dextrose 50% Syringe PHA 02/12/25 In Process 09:15 Mechanical Soft Diet DIET 02/12/25 Transmitted Breakfast Acetaminophen Tablet PHA 02/12/25 In Process (Tylenol Tablet) 18:00 Hydromorphone PHA 02/12/25 In Process Injection (Dilaudid 12:15 Date of Service: Feb 12, 2025 Billing Provider: ELDER BABCOCK MD Common Visit Codes: [id number] INP/OBS CARE(HIGH) JUHI TRAN RESDIAARON Feb 12, 2025 13:54
--- NOTE | 2025-02-12 14:13 | DVHPN2 ---
Progress Note Date Seen: Feb 12, 2025 Medical Necessity Reason Pt with a Central, PICC or Fol: No Subjective Patient reports: No new complaints, Feels better Objective vital signs Vital Sign Date Time Temp Pulse Resp B/P (MAP) Pulse Ox O2 Delivery O2 Flow Rate FiO2 02/12/25 13:08 97.7 84 20 156/84 (108) 94 97.7 02/12/25 08:00 Room Air* 0 21 Total Intake and Output 02/11/25 02/11/25 02/12/25 15:00 23:00 07:00 Intake Total 900 ml 700 ml Output Total 850 ml 500 ml Balance 50 ml 200 ml medications Current Medications Medications Dose Ordered Sig/Misty Route Start Time Stop Time Status Last Admin Dose Admin Nitroglycerin 0.4 mg Q5MINP PRN SL 02/08/25 16:00 Nifedipine 90 mg DAILY PO 02/09/25 10:00 02/12/25 08:54 90 MG Hydralazine HCl 50 mg Q8HR PO 02/08/25 22:00 02/12/25 05:44 50 MG Quetiapine Fumarate 50 mg HS PO 02/08/25 22:00 02/11/25 22:13 50 MG Ondansetron HCl 4 mg Q6HPRN PRN IV 02/08/25 16:00 Pantoprazole Sodium 40 mg DAILY@0600 PO 02/09/25 06:00 02/12/25 05:44 40 MG Levetiracetam 500 mg BID PO 02/08/25 22:00 02/12/25 08:54 500 MG Ceftriaxone Sodium 50 ml @ 100 mls/hr DAILY@09 IV 02/10/25 09:00 Hold Epoetin Arik-epbx 4,000 unit MWF@2100 [place] 02/13/25 21:00 Acetaminophen/ Hydrocodone Bitart 1 tab Q4HPRN PRN PO 02/11/25 09:15 Acetaminophen/ Hydrocodone Bitart 1 tab Q4HP PRN PO 02/11/25 09:15 02/12/25 08:44 1 TAB Diagnostic Test (Pha) 1 strip ACHS 02/12/25 11:30 02/12/25 11:39 1 STRIP Dextrose 50 ml UD PRN IV 02/12/25 09:15 Acetaminophen 650 mg Q6HR PO 02/12/25 18:00 Hydromorphone HCl 1 mg Q4HPRN PRN IV 02/12/25 12:15 Examination Gen:Appears stated age. NAD Heart: RRR, normal S1 and S2 Lungs: Bilateral air entry, no rales Ext: No edema Neuro Alert and oriented x 4 laboratory and microbiology Laboratory Tests 02/12/25 06:15 Test 02/12/25 06:15 Range/Units Serum Glucose 85 74-106 mg/dL Microbiology Date/Time Source Procedure Growth Status 02/09/25 06:20 Nose MRSA Screen - Final Complete Labs and/or images reviewed: Labs reviewed by me Problem List/Assessment/Plan Problem List/Assessment/Plan IMP ESRD schizophrenia seizure acute cholecystitis hyperkalemia-resolved anemia CKD REC HD tentatively 02/12 BMP in am Strict I&Os Blood pressure control Will continue to follow Case discussed with Dr. Guaman Plan discussed with: Patient NOLAN DOSS WAX SPECIALIST Feb 12, 2025 14:13
[2025-02-12] MEDS: ONDANSETRON HCL 4 MG/2 ML VIAL IV PRN (17:37)
[2025-02-12] MEDS: HYDROmorphone HCL 2 MG/ML VL/or syr IV PRN (17:37)
[2025-02-12] MEDS: ACETAMINOPHEN 325 MG TAB PO SCH (18:00)
[2025-02-13] VITALS (11 sets, daily range): BP systolic 137–172; BP diastolic 79–99; PULSE 75–100; RESP 14–20; TEMP 98–98.5; O2SAT 93–100
[2025-02-13] MEDS ORDERED: DOCUSATE SOD 100 MG CAP PO PRN (04:00)
[2025-02-13 06:26] LABS: Hematocrit 27.8 % (41.0-53.0); Hemoglobin 9.5 g/dL (13.5-17.5); Mean Corpuscular Hemoglobin 30.1 pg (28.0-32.0); Mean Corpuscular Volume 88.6 fL (80.0-100.0); Nucleated Red Blood Cells % 0.2 %
[2025-02-13 06:41] LABS: Alanine Aminotransferase 19 U/L (7-40); Alkaline Phosphatase 75 U/L (46-116); Anion Gap 13 (5-15); BUN/Creatinine Ratio 4.7 (10.0-20.0); Calcium 8.8 mg/dL (8.7-10.4); Carbon Dioxide 25 mmol/L (20-31); Chloride 105 mmol/L (98-107); Sodium 143 mmol/L (136-145)
[2025-02-13 06:42] LABS: Albumin 3.2 g/dL (3.2-4.8)
[2025-02-13 06:46] LABS: Bilirubin, Total < 0.2 mg/dL (0.2-1.0)
[2025-02-13 06:55] LABS: Blood Urea Nitrogen 53 mg/dL (9-23); Glucose 107 mg/dL (74-106)
[2025-02-13 06:56] LABS: Potassium 5.9 mmol/L (3.5-5.1); Total Protein 5.5 g/dL (5.7-8.2)
[2025-02-13] MEDS ORDERED: FUROSEMIDE 20 MG/2 ML VIAL IV ONE (07:00)
[2025-02-13] MEDS ORDERED: DEXTROSE (50%) 50ML SYRG IV ONE (07:00)
[2025-02-13] MEDS ORDERED: InsuLIN REG 1unit/0.01ml Soln (100units/ml) IV ONE (07:00)
[2025-02-13] MEDS ORDERED: ALBUTEROL SULF 2.5 MG/0.5ML(0.5%) NEB SOLN NEB ONE (07:00)
[2025-02-13] MEDS: ALBUTEROL SULF 2.5 MG/0.5ML(0.5%) NEB SOLN NEB ONE (08:05)
--- NOTE | 2025-02-13 08:47 | DVHPN2 ---
Subjective Date Seen: Feb 13, 2025 Post op day Post op day: 3 Patient reports: No new complaints, Feels better General: Normal HNT: Normal Cardiovascular: Normal Respiratory: Normal Gastrointestinal: Normal Genitourinary: Normal Musculoskeletal: Normal Neurological: Normal Objective Vitals Vital Sign Date Time Temp Pulse Resp B/P (MAP) Pulse Ox O2 Delivery O2 Flow Rate FiO2 02/13/25 08:15 75 14 100 02/13/25 06:30 137/83 02/13/25 04:52 98.1 98.1 02/12/25 22:18 Room Air* 0 21 Total Intake and Output 02/12/25 02/12/25 02/13/25 15:00 23:00 07:00 Intake Total 500 ml 900 ml Output Total 700 ml 700 ml Balance -200 ml 200 ml Medications Current Medications Medications Dose Ordered Sig/Misty Route Start Time Stop Time Status Last Admin Dose Admin Nitroglycerin 0.4 mg Q5MINP PRN SL 02/08/25 16:00 Nifedipine 90 mg DAILY PO 02/09/25 10:00 02/12/25 08:54 90 MG Hydralazine HCl 50 mg Q8HR PO 02/08/25 22:00 02/13/25 06:30 50 MG Quetiapine Fumarate 50 mg HS PO 02/08/25 22:00 02/12/25 22:36 50 MG Ondansetron HCl 4 mg Q6HPRN PRN IV 02/08/25 16:00 02/12/25 17:37 4 MG Pantoprazole Sodium 40 mg DAILY@0600 PO 02/09/25 06:00 02/13/25 06:31 40 MG Levetiracetam 500 mg BID PO 02/08/25 22:00 02/12/25 22:36 500 MG Ceftriaxone Sodium 50 ml @ 100 mls/hr DAILY@09 IV 02/10/25 09:00 Hold Epoetin Arik-epbx 4,000 unit MWF@2100 [place] 02/13/25 21:00 Acetaminophen/ Hydrocodone Bitart 1 tab Q4HPRN PRN PO 02/11/25 09:15 Acetaminophen/ Hydrocodone Bitart 1 tab Q4HP PRN PO 02/11/25 09:15 02/13/25 02:32 1 TAB Diagnostic Test (Pha) 1 strip ACHS 02/12/25 11:30 02/12/25 17:00 1 STRIP Dextrose 50 ml UD PRN IV 02/12/25 09:15 Acetaminophen 650 mg Q6HR PO 02/12/25 18:00 Hydromorphone HCl 1 mg Q4HPRN PRN IV 02/12/25 12:15 02/12/25 22:47 1 MG Docusate Sodium 100 mg BIDPRN PRN PO 02/13/25 04:00 General: Normal, Well developed, Obese Head/Eyes: Normal ENT: Normal Neck: Normal Lungs: Normal, Normal inspection Cardiovascular: Normal, Regular rate and rhythm Abdominal: Normal, Soft Musculoskeletal: Normal Extremities: Normal Skin: Normal, Normal inspection Neurological: Normal Labs and Microbiology Laboratory Tests 02/13/25 04:48 Test 02/13/25 04:48 Range/Units Serum Glucose 107 H 74-106 mg/dL Ass/Plan Labs and/or images reviewed: Labs reviewed by me Problem List IMP ESRD schizophrenia seizure acute cholecystitis hyperkalemia-resolved anemia CKD REC HD tentatively 02/12 BMP in am Strict I&Os Blood pressure control Will continue to follow Case discussed with Dr. Guaman Assessment/Plan CITL[place]I pike serous sanguinous fluid abdomen soft , non distended no new complaints Plan: ok to discharge per surgery point of view patient to follow up in surgery clinic in 7-10 days Prognosis: Good Plan discussed with patient, Dr. Ayoub Visit Coding Surgery Date of Service if different f: Feb 13, 2025 Billing Provider: CHRISTIANO AYOUB MD Surgery Visit Codes: [id number] INP/OBS CARE(HIGH) DREAD DE SEISMOMETER OPERATOR Feb 13, 2025 08:47
[2025-02-13] MEDS: DEXTROSE (50%) 50ML SYRG IV ONE (10:41)
[2025-02-13] MEDS: InsuLIN REG 1unit/0.01ml Soln (100units/ml) IV ONE (10:44)
[2025-02-13] MEDS: SODIUM BICARB 8.4% 50Meq/50ml SYR INJ IV ONE (11:10)
[2025-02-13] MEDS: SODIUM ZIRCONIUM CYCL 10 GM PAK PO ONE (11:18)
--- NOTE | 2025-02-13 11:32 | DVHPN2 ---
Progress Note Medical Necessity Reason Pt with a Central, PICC or Fol: No Objective vital signs Vital Sign Date Time Temp Pulse Resp B/P (MAP) Pulse Ox O2 Delivery O2 Flow Rate FiO2 02/13/25 11:26 102 18 150/75 02/13/25 09:00 98.1 100 98.1 02/12/25 22:18 Room Air* 0 21 Total Intake and Output 02/12/25 02/12/25 02/13/25 15:00 23:00 07:00 Intake Total 500 ml 900 ml Output Total 700 ml 700 ml Balance -200 ml 200 ml medications Current Medications Medications Dose Ordered Sig/Misty Route Start Time Stop Time Status Last Admin Dose Admin Nitroglycerin 0.4 mg Q5MINP PRN SL 02/08/25 16:00 Nifedipine 90 mg DAILY PO 02/09/25 10:00 02/13/25 10:37 90 MG Hydralazine HCl 50 mg Q8HR PO 02/08/25 22:00 02/13/25 06:30 50 MG Quetiapine Fumarate 50 mg HS PO 02/08/25 22:00 02/12/25 22:36 50 MG Ondansetron HCl 4 mg Q6HPRN PRN IV 02/08/25 16:00 02/12/25 17:37 4 MG Pantoprazole Sodium 40 mg DAILY@0600 PO 02/09/25 06:00 02/13/25 06:31 40 MG Levetiracetam 500 mg BID PO 02/08/25 22:00 02/13/25 10:37 500 MG Ceftriaxone Sodium 50 ml @ 100 mls/hr DAILY@09 IV 02/10/25 09:00 Hold Epoetin Arik-epbx 4,000 unit MWF@2100 [place] 02/13/25 21:00 Acetaminophen/ Hydrocodone Bitart 1 tab Q4HPRN PRN PO 02/11/25 09:15 Acetaminophen/ Hydrocodone Bitart 1 tab Q4HP PRN PO 02/11/25 09:15 02/13/25 02:32 1 TAB Diagnostic Test (Pha) 1 strip ACHS 02/12/25 11:30 02/12/25 17:00 1 STRIP Dextrose 50 ml UD PRN IV 02/12/25 09:15 Acetaminophen 650 mg Q6HR PO 02/12/25 18:00 Hydromorphone HCl 1 mg Q4HPRN PRN IV 02/12/25 12:15 02/13/25 11:26 1 MG Docusate Sodium 100 mg BIDPRN PRN PO 02/13/25 04:00 laboratory and microbiology Laboratory Tests 02/13/25 04:48 Test 02/13/25 04:48 Range/Units Serum Glucose 107 H 74-106 mg/dL Microbiology Date/Time Source Procedure Growth Status 02/09/25 06:20 Nose MRSA Screen - Final Complete ARTEMIO DENNISON MD Feb 13, 2025 11:32
--- NOTE | 2025-02-13 11:35 | DVHPN2 ---
Progress Note Date Seen: Feb 13, 2025 Medical Necessity Reason Pt with a Central, PICC or Fol: No Subjective Patient reports: No new complaints Other Systems: Patient seen and examined by myself today in follow-up Patient examined hemodialysis, blood pressure stable Objective vital signs Vital Sign Date Time Temp Pulse Resp B/P (MAP) Pulse Ox O2 Delivery O2 Flow Rate FiO2 02/13/25 11:26 102 18 150/75 02/13/25 09:00 98.1 100 98.1 02/12/25 22:18 Room Air* 0 21 Total Intake and Output 02/12/25 02/12/25 02/13/25 15:00 23:00 07:00 Intake Total 500 ml 900 ml Output Total 700 ml 700 ml Balance -200 ml 200 ml medications Current Medications Medications Dose Ordered Sig/Misty Route Start Time Stop Time Status Last Admin Dose Admin Nitroglycerin 0.4 mg Q5MINP PRN SL 02/08/25 16:00 Nifedipine 90 mg DAILY PO 02/09/25 10:00 02/13/25 10:37 90 MG Hydralazine HCl 50 mg Q8HR PO 02/08/25 22:00 02/13/25 06:30 50 MG Quetiapine Fumarate 50 mg HS PO 02/08/25 22:00 02/12/25 22:36 50 MG Ondansetron HCl 4 mg Q6HPRN PRN IV 02/08/25 16:00 02/12/25 17:37 4 MG Pantoprazole Sodium 40 mg DAILY@0600 PO 02/09/25 06:00 02/13/25 06:31 40 MG Levetiracetam 500 mg BID PO 02/08/25 22:00 02/13/25 10:37 500 MG Ceftriaxone Sodium 50 ml @ 100 mls/hr DAILY@09 IV 02/10/25 09:00 Hold Epoetin Arik-epbx 4,000 unit MWF@2100 [place] 02/13/25 21:00 Acetaminophen/ Hydrocodone Bitart 1 tab Q4HPRN PRN PO 02/11/25 09:15 Acetaminophen/ Hydrocodone Bitart 1 tab Q4HP PRN PO 02/11/25 09:15 02/13/25 02:32 1 TAB Diagnostic Test (Pha) 1 strip ACHS 02/12/25 11:30 02/12/25 17:00 1 STRIP Dextrose 50 ml UD PRN IV 02/12/25 09:15 Acetaminophen 650 mg Q6HR PO 02/12/25 18:00 Hydromorphone HCl 1 mg Q4HPRN PRN IV 02/12/25 12:15 02/13/25 11:26 1 MG Docusate Sodium 100 mg BIDPRN PRN PO 02/13/25 04:00 laboratory and microbiology Laboratory Tests 02/13/25 04:48 Test 02/13/25 04:48 Range/Units Serum Glucose 107 H 74-106 mg/dL Microbiology Date/Time Source Procedure Growth Status 02/09/25 06:20 Nose MRSA Screen - Final Complete Problem List/Assessment/Plan Problem List/Assessment/Plan ESRD on hemodialysis Hypertension schizophrenia seizure acute cholecystitis status post lap desirae 02/13 hyperkalemia anemia CKD Recommendations Continue with UF 2-3 L as tolerated Epogen 10699 subQ 3 times weekly Strict I&Os Resume home medication Renal diet We will continue to follow up Plan discussed with: Patient ARTEMIO DENNISON MD Feb 13, 2025 11:34
[2025-02-13] MEDS ORDERED: HYDR-4798 PO (11:36)
[2025-02-13] MEDS ORDERED: SODIUM CHL 0.9% 1000 ML BAG XX ONE (11:45)
[2025-02-13] MEDS: CALCIUM CHL 100MG/ML 1,000 MG in D5W 5% 100 ML IV ONE (13:43)
--- NOTE | 2025-02-13 16:00 | DVHDSRES ---
Discharge Summary Date of Admission Resident Creating Document: JUANI LIMA RESIDENT Feb 08, 2025 at 15:52 Date of Discharge: Feb 13, 2025 Labs/Diagnostic Data: Laboratory Results Test 02/13/25 11:20 02/13/25 10:44 02/13/25 04:48 02/12/25 06:15 Potassium Level 5.3 mmol/L (3.5-5.1) POC Glucose 165 mg/dl (70-106) White Blood Count 5.6 10^3/uL (4.4-10.8) Red Blood Count 3.14 10^6/uL (4.5-5.90) Hemoglobin 9.5 g/dL (13.5-17.5) Hematocrit 27.8 % (41.0-53.0) Mean Corpuscular Volume 88.6 fL (80.0-100.0) Mean Corpuscular Hemoglobin 30.1 pg (28.0-32.0) Mean Corpuscular Hemoglobin Concent 34.0 g/dL (32.0-36.0) Red Cell Distribution Width 13.7 % (11.8-14.3) Platelet Count 209 10^3/uL (140-450) Mean Platelet Volume 7.5 fL (6.9-10.8) Neutrophils (%) (Auto) 50.1 % (37.0-80.0) Lymphocytes (%) (Auto) 32.0 % (10.0-50.0) Monocytes (%) (Auto) 11.3 % (0.0-12.0) Eosinophils (%) (Auto) 5.8 % (0.0-7.0) Basophils (%) (Auto) 0.8 % (0.0-2.0) Neutrophils # (Auto) 2.8 10 ^3/uL (1.6-8.6) Lymphocytes # (Auto) 1.8 10 ^3/uL (0.4-5.4) Monocytes # (Auto) 0.6 10 ^3/uL (0-1.3) Eosinophils # (Auto) 0.3 10 ^3/uL (0-0.8) Basophils # (Auto) 0 10 ^3/uL (0-0.2) Nucleated Red Blood Cells 0.2 % Sodium Level 143 mmol/L (136-145) Chloride Level 105 mmol/L (98-107) Carbon Dioxide Level 25 mmol/L (20-31) Anion Gap 13 (5-15) Blood Urea Nitrogen 53 mg/dL (9-23) Creatinine 11.20 mg/dL (0.700-1.30) Glomerular Filtration Rate Calc 5 mL/min (>90) BUN/Creatinine Ratio 4.7 (10.0-20.0) Serum Glucose 107 mg/dL (74-106) Calcium Level 8.8 mg/dL (8.7-10.4) Total Bilirubin < 0.2 mg/dL (0.2-1.0) Aspartate Amino Transferase (AST) 18 U/L (13-40) Alanine Aminotransferase (ALT) 19 U/L (7-40) Alkaline Phosphatase 75 U/L (46-116) Total Protein 5.5 g/dL (5.7-8.2) Albumin 3.2 g/dL (3.2-4.8) Hemoglobin A1c 6.3 % A1C (<5.7) Test 02/09/25 07:42 02/08/25 15:04 02/08/25 11:07 02/08/25 10:22 Phosphorus Level 8.3 mg/dL (2.4-5.1) Iron Level 90 ug/dL (65-175) Total Iron Binding Capacity 226 ug/dL (250-425) Percent Iron Saturation 39.8 % (20-55) Ferritin 351.9 ng/mL (22-322) Parathyroid Hormone (Intact) 385.2 pg/mL (18.4-80.1) Hepatitis A IgM Antibody Negative Hepatitis B Surface Antigen Negative (Negative) Hepatitis B Core IgM Antibody Negative (Negative) Hepatitis C Antibody Negative (Negative) Troponin I High Sensitivity 11 ng/L (</=54) Prothrombin Time 10.3 sec (9.3-11.8) Prothrombin Time INR 0.97 (0.9-1.15) Activated Partial Thromboplast Time 27.1 SEC (24.5-34.5) Magnesium Level 1.9 mg/dL (1.6-2.6) Lipase 36 U/L (12-53) Urine Color Light-yellow (Yellow) Urine Clarity Clear (Clear) Urine pH 7.5 (5.0-9.0) Urine Specific [place] 1.018 (1.001-1.035) Urine Protein 3+ (Negative) Urine Ketones Negative (Negative) Urine Blood 1+ /uL (Negative) Urine Nitrite Negative (Negative) Urine Bilirubin Negative (Negative) Urine Urobilinogen Normal mg/dL (Negative) Urine Leukocyte Esterase Negative /uL (Negative) Urine RBC 2 /hpf (0 - 3) Urine Microscopic WBC 7 /HPF (0-3) Urine Squamous Epithelial Cells None seen /hpf (<5) Urine Bacteria None seen /hpf (None Seen) Urine Hyaline Casts Mod /lpf (0 - 2) Urine Yeast (Budding) Occasional /hpf (None Urine Glucose 3+ mg/dL (Normal) Other Laboratory Tests 02/13/25 11:20 02/13/25 04:48 Brief Hx & Hospital Course: This is a 54-year-old male with past medical history of diabetes mellitus, hypertension, ESRD on dialysis on Thursday, congestive heart failure, dyslipidemia, seizures, schizophrenia presents with complaint of abdominal pains, vomiting, diarrhea Since 1 day. He rated the abdominal pain 10 on 10. He says that he felt like the ribs were breaking. Patient also complains of pain in legs CP. The pain is chronic due to diabetic neuropathy. Blood pressure w/as 199/114 on presentation. He had hyperkalemia With potassium of 5.9 and was treated with hyperkalemia protocol. gallbladder ultrasound showed gallstones with wall thickening and distention. CT abdomen showed bladder wall thickening and gallstones. Patient was treated with IV fluids, IV antibiotics and other supportive treatments. Surgeon performed a laparoscopic cholecystectomy. Patient had severe pain after the procedure which was controlled with IV morphine. Patient underwent regular dialysis 3 times a week in the hospital. During the course of the hospitalization, the patient was better and is hence being discharged. Discharge plan Follow up with PCP in 7 days Follow up with surgery Clinic in 7 days [place] 10 mg as needed for pain Continue home medications Continue hemodialysis Condition at Discharge: Fair Final Diagnosis/Problems List Status post laparoscopic cholecystectomy Acute cholecystitis Acute intractable abdominal pain due to above Acute gastroenteritis Hypertensive emergency Hypertensive heart disease H/o Dyslipidemia Paroxysmal atrial fibrillation End-stage renal disease on dialysis MWF Normocytic anemia likely due to above Hyperkalemia Insulin-dependent Type 2 diabetes mellitus with hyperglycemia History of seizure disorder schizophrenia/bipolar disorder Hypocalcemia Discharge Disposition: Home Discharge Instruct/Medications Diet: Renal Activity: No Restrictions, As Tolerated Follow Up/Referral: F/u with PCP in 7 days F/u with surgeon in 7 days Medications: as per EHR Scheduled Atorvastatin Calcium (Lipitor), 40 MG PO DAILY Bumetanide (Bumetanide), 1 TAB PO DAILY Carvedilol (Carvedilol), 1 TAB PO BID Dorzolamide HCl-Timolol Maleat (Cosopt 2-0.5 %), 1 KEERTHI OP BID Hydralazine Hcl (Hydralazine Hcl), 1 TAB PO TID Levetiracetam (Levetiracetam), 1 TAB PO BID Losartan Potassium (Losartan Potassium), 100 MG PO DAILY Nifedipine (Nifedipine Er), 90 MG PO QPM Olopatadine HCl (Olopatadine Hydrochloride), 1 DROP LEFTEYE BID, (Reported) Scheduled PRN Hydrocodone-Acetaminophen (Hydrocodone Bitartrate/AC 5-325 mg), 1-2 TAB PO Q6HP PRN Hydrocodone-Acetaminophen (Hydrocodone Bitartrate/AC 10-325 mg), 1 TAB PO QIDP PRN Miscellaneous Medications Insulin Lispro (Insulin Lispro Thai Kwi), (Reported) Quetiapine Fumerate (Quetiapine Fumarate), 1 TAB PO, (Reported) Discharge Statement: "Patient was advised to return to the ER or call 911 if any headaches, dizziness, shortness of breath, chest pain, abdominal pain, bleeding, fevers, or worsening of medical condition. Patient was counseled about treatment plan, medications, possible side effects, patientverbalized understanding. All questions were answered to the best of my ability. This discharge took greater then 30 minutes in planning, reviewing documentation, counseling the patient, and discussing with other team members." ASSESSMENT ASSESSMENT Assessment Acute cholecystitis Date of Service: Feb 13, 2025 Billing Provider: ELDER BABCOCK MD Common Visit Codes: 73225-GBV/OBS DISCH DAY >30min JUANI LIMA Feb 13, 2025 16:00
[2025-02-13] MEDS: EPOETIN ALFA-EPBX 10,000 UNIT/1ML VIAL SC ONE (21:50)
[2025-02-13] MEDS: levETIRAcetam 500 mg/100ml 100 ML IV SCH (22:16)
[2025-02-13] MEDS: PANTOPRAZOLE 40 MG/10 ML VIAL INJ IV ONE (22:17)
[2025-02-14] MEDS: hydrALAZINE HCL 20 MG/ML VL IV PRN (00:40)
[2025-02-14 01:00] VITALS: BP 177/97; PULSE 95; RESP 19; TEMP 98.1; O2SAT 95
[2025-02-14] MEDS: LORazepam 2MG/ML-1ML VIAL IV PRN (03:30)
[2025-02-14 05:00] VITALS: BP 157/86; PULSE 96; RESP 17; TEMP 98; O2SAT 97
[2025-02-14 08:00] VITALS: PULSE 93
[2025-02-14 09:00] VITALS: BP 134/72; PULSE 95; RESP 18; TEMP 98.3; O2SAT 93
[2025-02-14] MEDS: PANTOPRAZOLE 40 MG/10 ML VIAL INJ IV SCH (09:19)
[2025-02-14] MEDS: POLYETHYLENE GLYCOL 17 GM PWDR PO ONE (11:30)
--- NOTE | 2025-02-14 12:18 | DVHPN2 ---
Progress Note Date Seen: Feb 14, 2025 Medical Necessity Reason Pt with a Central, PICC or Fol: No Subjective Patient reports: No new complaints Other Systems: Patient seen and examined by myself today in follow-up Objective vital signs Vital Sign Date Time Temp Pulse Resp B/P (MAP) Pulse Ox O2 Delivery O2 Flow Rate FiO2 02/14/25 11:32 95 16 141/63 02/14/25 09:00 98.3 93 98.3 02/14/25 08:05 Room Air* 0 21 Total Intake and Output 02/13/25 02/13/25 02/14/25 15:00 23:00 07:00 Intake Total 590 ml 850 ml 0 ml Output Total 600 ml 400 ml Balance 590 ml 250 ml -400 ml medications Current Medications Medications Dose Ordered Sig/Misty Route Start Time Stop Time Status Last Admin Dose Admin Nitroglycerin 0.4 mg Q5MINP PRN SL 02/08/25 16:00 Nifedipine 90 mg DAILY PO 02/09/25 10:00 Hold 02/13/25 10:37 90 MG Hydralazine HCl 50 mg Q8HR PO 02/08/25 22:00 02/13/25 17:54 50 MG Quetiapine Fumarate 50 mg HS PO 02/08/25 22:00 Hold 02/12/25 22:36 50 MG Ondansetron HCl 4 mg Q6HPRN PRN IV 02/08/25 16:00 02/12/25 17:37 4 MG Pantoprazole Sodium 40 mg DAILY@0600 PO 02/09/25 06:00 Hold 02/13/25 06:31 40 MG Levetiracetam 500 mg BID PO 02/08/25 22:00 Hold 02/13/25 10:37 500 MG Ceftriaxone Sodium 50 ml @ 100 mls/hr DAILY@09 IV 02/10/25 09:00 Hold Epoetin Arik-epbx 4,000 unit MWF@2100 SC 02/15/25 21:00 Acetaminophen/ Hydrocodone Bitart 1 tab Q4HPRN PRN PO 02/11/25 09:15 Acetaminophen/ Hydrocodone Bitart 1 tab Q4HP PRN PO 02/11/25 09:15 02/13/25 02:32 1 TAB Diagnostic Test (Pha) 1 strip ACHS 02/12/25 11:30 02/14/25 11:17 1 STRIP Dextrose 50 ml UD PRN IV 02/12/25 09:15 Acetaminophen 650 mg Q6HR PO 02/12/25 18:00 Hydromorphone HCl 1 mg Q4HPRN PRN IV 02/12/25 12:15 02/14/25 11:32 1 MG Docusate Sodium 100 mg BIDPRN PRN PO 02/13/25 04:00 Lorazepam 1 mg Q5MINP PRN IV 02/13/25 21:15 02/14/25 03:30 1 MG Levetiracetam 100 ml @ 400 mls/hr BID IV 02/13/25 22:00 02/14/25 09:19 400 MLS/HR Hydralazine HCl 10 mg Q6HP PRN IV 02/13/25 21:45 02/14/25 00:40 10 MG Pantoprazole Sodium 40 mg DAILY IV 02/14/25 10:00 02/14/25 09:19 40 MG Examination: LUNGS:Normal, CVS:Normal, MSK:Abnormal laboratory and microbiology Laboratory Tests 02/13/25 11:20 02/13/25 04:48 Test 02/13/25 04:48 Range/Units Serum Glucose 107 H 74-106 mg/dL Microbiology Date/Time Source Procedure Growth Status 02/09/25 06:20 Nose MRSA Screen - Final Complete Problem List/Assessment/Plan Problem List/Assessment/Plan ESRD on hemodialysis Hypertension schizophrenia seizure acute cholecystitis status post lap desirae 02/13 hyperkalemia anemia CKD Hyperphosphatemia Recommendations Hemodialysis tomorrow Epogen 44934 subQ 3 times weekly Strict I&Os Resume home medication Renvela 2400 mg p.o. t.i.d. with meal Renal diet We will continue to follow up Plan discussed with: Patient ARTEMIO DENNISON MD Feb 14, 2025 12:18
[2025-02-14 13:00] VITALS: BP 154/77; PULSE 90; RESP 16; TEMP 98.3; O2SAT 94
[2025-02-14 17:00] VITALS: BP 142/83; PULSE 92; RESP 16; TEMP 97.9; O2SAT 93
[2025-02-14] MEDS: SEVELAMER 800 MG TAB PO SCH (18:22)
[2025-02-15] MEDS ORDERED: SODIUM CHL 0.9% 1000 ML BAG XX ONE (07:00)
[2025-02-15] MEDS ORDERED: EPOETIN ALFA-EPBX 10,000 UNIT/1ML VIAL SC ONE (21:00)
[2025-02-15] MEDS ORDERED: EPOETIN ALFA-EPBX 4,000 UNIT/ML VIAL SC SCH (21:00)
== END 2025-02-14 19:00 | disposition home health service (06) | DRG 263 ==
LOC: ER 09:31 → OVERFLOW 15:52 → TELE-WESTW 02-09 15:52
PROVIDERS: ADMIT Student in an Organized Health Care Education/Training Program; ATTEND Student in an Organized Health Care Education/Training Program
PROC: 5A1D70Z Performance of Urinary Filtration, Intermittent, Less than 6 Hours Per Day (ICD-10-PCS; 2025-02-09)
PROC: 0FT44ZZ Resection of Gallbladder, Percutaneous Endoscopic Approach (ICD-10-PCS; principal; 2025-02-10 12:09)
PROC: 5A1D70Z Performance of Urinary Filtration, Intermittent, Less than 6 Hours Per Day (ICD-10-PCS; 2025-02-13)
DX: K80.12 Calculus of gallbladder with acute and chronic cholecystitis without obstruction (principal); I13.2 Hypertensive heart and chronic kidney disease with heart failure and with stage 5 chronic kidney disease, or end stage renal disease; I16.1 Hypertensive emergency; D63.1 Anemia in chronic kidney disease; E83.39 Other disorders of phosphorus metabolism; N18.6 End stage renal disease; E83.51 Hypocalcemia; I50.9 Heart failure, unspecified; I48.0 Paroxysmal atrial fibrillation; G40.909 Epilepsy, unspecified, not intractable, without status epilepticus; Z99.2 Dependence on renal dialysis; E11.65 Type 2 diabetes mellitus with hyperglycemia; F20.9 Schizophrenia, unspecified; E11.22 Type 2 diabetes mellitus with diabetic chronic kidney disease; E78.5 Hyperlipidemia, unspecified; E87.5 Hyperkalemia; K52.9 Noninfective gastroenteritis and colitis, unspecified; F17.210 Nicotine dependence, cigarettes, uncomplicated; F31.9 Bipolar disorder, unspecified; Z79.4 Long term (current) use of insulin; Z88.6 Allergy status to analgesic agent; Z88.1 Allergy status to other antibiotic agents; Z88.0 Allergy status to penicillin; Z82.49 Family history of ischemic heart disease and other diseases of the circulatory system; Z83.3 Family history of diabetes mellitus; Z79.899 Other long term (current) drug therapy
CPT/HCPCS: 36415; 71046; 74176; 76705; 80048; 80053; 80074; 81001; 82247; 82306; 82728; 82962; 83036; 83540; 83550; 83690; 83735; 83880; 83970; 84100; 84132; 84484; 85025; 85610; 85730; 86850; 86900; 86901; 87081; 90935; 93005; 94640; 96361; 96374; 96375; 97163; G0378; J1100; J1815; J1956; J2250; J2405; J2470; J3490; J7060